=== PATIENT | female | born 1990 | race Caucasian/White ===

== ENCOUNTER 2017-08-02 19:08 | Emergency (ER) | payer MEDICAID, SELFPAY ==
[2017-08-02 19:09] VITALS: BP 118/78; PULSE 98; RESP 17; TEMP 36.8; O2SAT 99; BMI 19.0
[2017-08-02 19:57] LABS: Mucous, Urine 0 SEEN /hpf (<or=2+)
[2017-08-02 20:01] LABS: Color, Urine Yellow (Yellow); Glucose, Dipstick Normal (Normal); Ketone-Dipstick Negative (Negative); Leukocyte Esterase-Dipstick 500 /ul (Negative); Nitrite-Dipstick Negative (Negative); Occult Blood-Urine 150 /ul (Negative); Protein-Dipstick 15 mg/dl (Negative); Urine Bilirubin Dipstick Negative (Negative); Urine Clarity Sl. Cloudy (Clear); Urine Urobilinogen Normal (Normal); Urine pH 6.5 (5.0 - 8.0)
[2017-08-02 20:10] LABS: Red Blood Cells-Urine 5-10 SEEN /hpf (0-5); Squamous Epithelial Cells - UA 0-5 SEEN /hpf (5-10); White Blood Cells 25-50 SEEN /hpf (0-5)
[2017-08-02 20:11] LABS: Amorphous Sediment 1+ URATE; Bacteria RARE /hpf (None Seen)
--- NOTE | 2017-08-02 22:27 | ED.DCSUM_ITS ---
- ER Visit Summary Date of Service: 08/02/17 Chief Complaint: Possible urinary tract infection History of Present Illness: The patient is a 27 F who presents with suprapubic abdominal pain for the past couple weeks. Patient states the pain radiates into her low back. Patient denies any flank pain. Patient admits to some dysuria, frequency, and one episode of hematuria. Patient denies any fevers or chills. Patient admits to some nausea but denies any vomiting. Patient denies any diarrhea or constipation. Patient denies any decrease in appetite. Physical Examination: Vital signs are stable. Patient is afebrile. Patient is in no acute distress. Oral mucosa is pink and moist. Neck is supple. Trachea is midline. Heart was regular rate and rhythm. Lungs are clear and equal bilaterally. There is good respiratory effort noted. Abdomen is soft. There is some mild suprapubic tenderness. There is no rebound or guarding noted. The remaining physical exam is within normal limits. Test Results: Urinalysis showed evidence of urinary tract infection. Emergency Department Course and Treatment: Patient was given prescriptions for Bactrim and Pyridium. Patient was instructed to follow-up with her primary care physician in 7-10 days. Patient understood and was agreeable with the plan. All questions were answered. Disposition: Discharge home Impression: Urinary tract infection This note was generated with [employer] dictation software. It may contain incorrect words, spelling, and punctuation that were not noted in review of the chart prior to signing ED Disposition - Plan for ED Patient: Disposition: Home or Assisted Living Chief Complaint: Complaint Diagnosis: Urinary tract infection Instructions: ED UTI Cystitis Female Prescriptions: Phenazopyridine HCl [Pyridium] 200 mg PO TID PRN PRN #6 tab PRN Reason: Pain Smz/Tmp Ds [Bactrim Ds] 1 tab PO BID #6 tab Referrals: Care Physician,No Primary [Primary Care Provider] -
[2017-08-02 22:46] VITALS: BP 121/71; PULSE 68; RESP 16; O2SAT 100
== END 2017-08-02 22:47 | disposition home or self-care (01) ==
PROVIDERS: Emergency Provider Emergency Medicine
DX: N39.0 Urinary tract infection, site not specified (principal)
CPT/HCPCS: 81001; 99282

== ENCOUNTER 2017-10-06 12:43 | Emergency (ER) | payer MEDICAID, SELFPAY ==
[2017-10-06 12:45] VITALS: BP 117/80; PULSE 101; RESP 14; TEMP 36.6; O2SAT 99; BMI 22.0
--- NOTE | 2017-10-06 12:57 | RAD_ITS ---
STUDY: X-RAY - RIGHT HAND REASON FOR EXAM: Female, 27 years old. Soft tissue swelling and bruising along the distal aspect of the third metacarpal joint. TECHNIQUE: 3 view(s) of the hand. COMPARISON: None. FINDINGS: Normal radiocarpal articulation. Normal distal radioulnar joint. Normal visualized carpal bones. Normal carpal articulations Normal carpometacarpal articulation of the thumb. Normal second through fifth carpometacarpal joints. Normal metacarpi. Normal metacarpophalangeal joint of the thumb. Normal interphalangeal joint of the thumb. Normal proximal and distal phalanges of the thumb. Normal metacarpophalangeal joints of the second through fifth fingers. Normal proximal and distal interphalangeal joints of the second through fifth fingers. Normal phalanges of the second through fifth fingers. Soft tissue swelling. RAD/Hand Min 3 Views IMPRESSION: Soft tissue swelling. Electronically Signed: Hugo Aldana MD at 13:12 EDT Tel [phone], Service support ,
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
[2017-10-06 13:36] VITALS: RESP 12
== END 2017-10-06 13:37 | disposition home or self-care (01) ==
LOC: ED 13:33
PROVIDERS: Emergency Provider Emergency Medicine
DX: S60.221A Contusion of right hand, initial encounter (principal); W22.8XXA Striking against or struck by other objects, initial encounter; Y93.9 Activity, unspecified; Y92.9 Unspecified place or not applicable
CPT/HCPCS: 73130; 99282

== ENCOUNTER 2017-10-31 14:31 | Emergency (ER) | payer MEDICAID, SELFPAY ==
--- NOTE | 2017-10-31 11:27 | EKG12_ITS ---
Test Reason : [facility] [place] Blood Pressure : / mmHG Vent. Rate : 092 BPM Atrial Rate : 092 BPM P-R Int : 124 ms QRS Dur : 078 ms QT Int : 362 ms P-R-T Axes : 062 056 044 degrees QTc Int : 447 ms Normal sinus rhythm Normal ECG Confirmed by RY MATTA, RAMON ([id number]), news video editor ESE BILLS ([id number]) on 11/08/2017 6:17:48 PM Referred By: Choco Nice Confirmed By:RAMON RAZA MD
--- NOTE | 2017-10-31 14:31 | DT_ITS ---
This patient was seen during an EMR downtime October 30, 2017 - November 06, 2017. This patient may have a combination of paper and electronic documentation or all paper documentation. All documentation is viewable within the e-chart portion of [employer] for each patient visit.
[2017-11-02 18:38] LABS: Bacteria 1+ /hpf (None Seen); Color, Urine Yellow (Yellow); Glucose, Dipstick Normal (Normal); Ketone-Dipstick 5 mg/dl (Negative); Leukocyte Esterase-Dipstick 500 /ul (Negative); Mucous, Urine 2+ /hpf (<or=2+); Nitrite-Dipstick Negative (Negative); Occult Blood-Urine 10 /ul (Negative); Protein-Dipstick 30 mg/dl (Negative); Red Blood Cells-Urine 0-5 SEEN /hpf (0-5); Specific Gravity, Urine 1.025 (1.002-1.030); Squamous Epithelial Cells - UA 0-5 SEEN /hpf (5-10); Urine Bilirubin Dipstick Negative (Negative); Urine Clarity Sl Cloudy (Clear); Urine Urobilinogen 1 mg/dl (Normal); White Blood Cells 5-10 SEEN /hpf (0-5)
[2017-11-02 18:39] LABS: Calcium Oxalate Crystals Ur 1+ /hpf (<or=2+)
[2017-11-02 21:20] LABS: AST(SGOT) 17 U/L (15-37); Alanine Aminotransfer ALT/SGPT 18 U/L (13-56); Albumin, Serum 4.2 g/dL (3.2-5.0); Alkaline Phosphatase 45 U/L (45-117); Bilirubin, Direct 0.13 mg/dL (0.00-0.30); Globulin 3.2 g/dL (2.2-4.2); Protein, Total 7.4 g/dL (6.4-8.2)
[2017-11-02 22:00] LABS: Glucose 92 mg/dL (74-106)
[2017-11-02 22:01] LABS: Anion Gap 10 (5-15); BUN 13 mg/dL (7-18); BUN/Creat Ratio 14.3 RATIO (10-20); Calcium,Total 9.2 mg/dL (8.5-10.1); Chloride 107 mmol/L (98-107); Creatinine, Serum 0.91 mg/dL (0.55-1.02); EST Glomerular Filtration Rate 79 mL/min (>60); Est Glom Filt Rate - Afr Amer 96 mL/min (>60); Sodium Level 141 mmol/L (136-145)
[2017-11-02 22:02] LABS: Alcohol, Blood (Medical)-Serum < 3.0 mg/dL; Potassium 2.5 mmol/L (3.5-5.1); Pregnancy, Serum, hCG Quali. NEGATIVE Negative (0-9 Nonpreg)
[2017-11-03 09:29] LABS: Amphetamine Urine VISTA POSITIVE (<1000 ng/mL); Barbiturate Urine VISTA NEGATIVE (< 200 ng/mL); Benzodiazepine Urine VISTA NEGATIVE (< 200 ng/mL); Cocaine Urine VISTA NEGATIVE (< 300 ng/mL); Ecstacy Urine VISTA POSITIVE (< 500 ng/mL); Methadone Urine VISTA NEGATIVE (< 300 ng/mL); PCP Urine VISTA NEGATIVE (< 25 ng/mL); THC Urine VISTA POSITIVE (< 50 ng/mL)
[2017-11-03 12:20] LABS: Hematocrit 40.3 % (37-47); Hemoglobin 13.8 g/dl (12.0-15.0); Mean Corpuscular Hgb 32.1 pg (27.0-32.0); Mean Corpuscular Volume 93.7 fL (81-99); White Blood Count 4.8 K/mm3 (4.4-11.0)
[2017-11-03 12:21] LABS: Mean Corp Hgb Conc 34.2 g/gl (32-36); Mean Platelet Vol. 10.1 fl (6.2-12.0); Platelet Count 227 K/mm3 (150-450); RBC Distribution Width CV 12.8 % (11.6-14.6); RBC Distribution Width SD 43.8 fl (35.1-43.9); Scan Indicated on CBC? Y/N NO
[2017-11-04 07:25] LABS: Potassium 3.6 mmol/L (3.5-5.1)
== END 2017-11-01 08:30 ==
LOC: ED 11-02 07:40
PROVIDERS: Emergency Provider Emergency Medicine
DX: F32.9 Major depressive disorder, single episode, unspecified (principal); R45.851 Suicidal ideations; F20.0 Paranoid schizophrenia; S50.912A Unspecified superficial injury of left forearm, initial encounter; Y33.XXXA Other specified events, undetermined intent, initial encounter; Y93.9 Activity, unspecified; Y92.9 Unspecified place or not applicable
CPT/HCPCS: 36415; 80048; 80076; 80307; 80320; 81001; 84132; 84703; 85027; 93005; 96372; 99285; J7030; A4216; G0480; J3486

== ENCOUNTER 2018-03-04 12:56 | Emergency (ER) | payer MEDICAID, SELFPAY ==
[2018-03-04 12:57] VITALS: BP 116/86; PULSE 92; RESP 14; TEMP 36.8; O2SAT 100; BMI 18.2
--- NOTE | 2018-03-04 13:21 | ED.DCSUM_ITS ---
- ER Visit Summary Date of Service: 03/04/18 Chief Complaint: Dysuria History of Present Illness: The patient is a 27 F past medical history of prior UTIs. Prior breast cancer with lumpectomy. Patient is for last 2 months she has had urinary frequency and discomfort urinating. Denies any vaginal bleeding . Last menstrual period was about 3 weeks ago. Does not believe she is . No fever. No vomiting or diarrhea. Physical Examination: Well-appearing young female. Vital signs are stable. Afebrile. Pulse ox 100% on room air no signs of hypoxia. H EENT exam unremarkable. Red hair. Moist mucous membranes. Neck nontender. No lymphadenopathy. Lungs clear to auscultation bilaterally. Dry cough. Heart regular rhythm no murmur. Abdomen soft. Normal bowel sounds no peritoneal signs. Moving all 4 extremities. Neurovascularly intact. Back exam nontender. No CVA tenderness. Neurologically awake and alert with no focal motor deficits. Test Results: Urinalysis shows 2+ bacteria and 50-100 white cells consistent with a UTI. Emergency Department Course and Treatment: Keflex 500 mg 4 times daily for 10 days. She asked for a prescription of Motrin for pain. Treatment Plan: Referred to a local primary care physician. Keflex 4 times daily for 10 days. Disposition: Discharge Impression: Acute dysuria secondary to UTI (cystitis) This note was generated with [employer] dictation software. It may contain incorrect words, spelling, and punctuation that were not noted in review of the chart prior to signing ED Disposition - Plan for ED Patient: Chief Complaint: Complaint Referrals: Care Physician,No Primary [Primary Care Provider] -
[2018-03-04 13:49] LABS: Red Blood Cells-Urine 0 SEEN /hpf (0-5)
[2018-03-04 13:55] LABS: Color, Urine Yellow (Yellow); Glucose, Dipstick Normal (Normal); Ketone-Dipstick 5 mg/dl (Negative); Leukocyte Esterase-Dipstick 500 /ul (Negative); Nitrite-Dipstick Negative (Negative); Occult Blood-Urine 10 /ul (Negative); Protein-Dipstick 30 mg/dl (Negative); Urine Bilirubin Dipstick Negative (Negative); Urine Clarity Cloudy (Clear); Urine Urobilinogen Normal (Normal)
[2018-03-04 14:03] LABS: Bacteria 2+ /hpf (None Seen); Mucous, Urine 1+ /hpf (<or=2+); Squamous Epithelial Cells - UA 0-5 SEEN /hpf (5-10); White Blood Cells 50-100 SEEN /hpf (0-5)
--- NOTE | 2018-03-04 14:29 | ED.DEP ---
ED Disposition - Plan for ED Patient: Disposition: Home or Assisted Living Chief Complaint: Complaint Instructions: ED UTI Cystitis Female Prescriptions: Cephalexin [Keflex] 500 mg PO Q6 #40 cap Ibuprofen [Motrin] 600 mg PO TID PRN PRN #20 tab PRN Reason: Pain Referrals: Elver Small [[facility]] - Elver Small MD [NON-STAFF] - As Needed Additional Instructions: Plenty of water and cranberry juice. Take the antibiotic Keflex 1 pill 4 times a day till gone. Follow-up with not improving or return if worse.
[2018-03-04] MEDS: Cephalexin 250 MG Capsule 500 MG PO (14:39)
[2018-03-04 14:41] VITALS: PULSE 94; RESP 16; O2SAT 100
== END 2018-03-04 14:42 | disposition home or self-care (01) ==
PROVIDERS: Emergency Provider Emergency Medicine
DX: N39.0 Urinary tract infection, site not specified (principal); R30.0 Dysuria; R05 Cough; Z87.440 Personal history of urinary (tract) infections; Z85.3 Personal history of malignant neoplasm of breast
CPT/HCPCS: 81001; 99283

== ENCOUNTER → 2020-01-09 12:56 | Outpatient (CLI) | payer MEDICAID, SELFPAY ==
--- NOTE | 2020-01-09 13:00 | VDLE_ITS ---
Reason For Study: Hx DVT and IVC filter RIGHT LEFT GSV is normal. GSV is normal. CFV is compressible, spontaneous, phasic, CFV is compressible, spontaneous, phasic, competent and demonstrates normal competent, and demonstrates normal augmentation. augmentation. FV is compressible, spontaneous, phasic, FV is compressible, spontaneous, phasic, competent and demonstrates normal competent and demonstrates normal augmentation. augmentation. POP V is compressible, spontaneous, phasic, POP V is compressible, spontaneous, phasic, competent and demonstrates normal competent and demonstrates normal augmentation. augmentation. T/P Trunk is compressible. T/P Trunk is compressible. PTV is compressible. PTV is compressible. RT PerV is compressible. LT PerV is compressible. Procedure Exam performed in department. A preliminary report was called and/or faxed to [facility]. Interpretation Summary Bilateral no DVT or SVT. Ordering Physician: JERILYN SHELTON Performed By: Rupinder Mendoza RVT
== END ==
DX: Z86.718 Personal history of other venous thrombosis and embolism (principal); Z95.828 Presence of other vascular implants and grafts
CPT/HCPCS: 93970

== ENCOUNTER 2020-04-21 10:04 | Emergency (ER) | payer MEDICAID, SELFPAY ==
[2020-04-21 10:06] VITALS: BP 139/99; PULSE 105; RESP 17; TEMP 36.2; O2SAT 100; BMI 24.0
--- NOTE | 2020-04-21 11:09 | ED.VISSUMM ---
- ER Visit Summary Date of Service: 04/21/20 Chief Complaint: Dysuria, hematuria, and fever History of Present Illness: The patient is a 29 F who presents with dysuria, hematuria, and fever for the past 2 weeks. Patient states she feels like she has a urinary tract infection that has now spread to her kidneys. Patient states she has some burning in her lower abdomen. Patient states this is worse with urination. Patient admits to a fever of 102 at home. Patient admits to nausea but denies any vomiting. Patient does admit to some pain in her low back and neck. Physical Examination: Vital signs are stable. Patient is afebrile here. Patient is in no acute distress. Oral mucosa is pink and moist. Neck is supple. Trachea is midline. There is no JVD. Heart was regular rate and rhythm. Lungs are clear and equal bilaterally. Abdomen is soft. Bowel sounds are normal. There is some mild suprapubic tenderness. There is no rebound or guarding noted. Cranial nerves II through XII are intact. There are no focal motor or sensory deficits. Extremities are intact. There is no calf tenderness or edema. Test Results: Urinalysis shows leukocyte esterase of 500 with 50-100 white blood cells and 25-50 red blood cells. There is 1+ bacteria. Emergency Department Course and Treatment: Patient was given a dose of Bactrim here. Patient was given a prescription for Bactrim. Patient was instructed to follow-up with her primary care physician in 5 to 7 days. Patient understood and was agreeable with the plan. All questions were answered. Disposition: Discharge home Impression: 1. Urinary tract infection This note was generated with [employer] dictation software. It may contain incorrect words, spelling, and punctuation that were not noted in review of the chart prior to signing ED Disposition - Plan for ED Patient: Disposition: Home or Assisted Living Diagnosis: Urinary tract infection Instructions: ED CYSTITIS Female Adult Prescriptions: Smz/Tmp Ds [Bactrim Ds] 1 tab PO BID #6 tab Prescription Printed Referrals: Gabby Dominguez DO [Primary Care Provider] - 5-7 Days
[2020-04-21 11:36] LABS: Mucous, Urine 0 SEEN /hpf (<or=2+)
[2020-04-21 11:39] LABS: Color, Urine Yellow (Yellow); Glucose, Dipstick Normal (Normal); Ketone-Dipstick Negative (Negative); Leukocyte Esterase-Dipstick 500 /ul (Negative); Nitrite-Dipstick Negative (Negative); Occult Blood-Urine 250 /ul (Negative); Protein-Dipstick 30 mg/dl (Negative); Specific Gravity, Urine 1.015 (1.002-1.030); Urine Bilirubin Dipstick Negative (Negative); Urine Clarity Sl. Cloudy (Clear); Urine Urobilinogen Normal (Normal)
[2020-04-21 11:47] LABS: Bacteria 1+ /hpf (None Seen); Red Blood Cells-Urine 25-50 SEEN /hpf (0-5); Squamous Epithelial Cells - UA 0-5 SEEN /hpf (5-10); White Blood Cells 50-100 SEEN /hpf (0-5)
[2020-04-21 11:48] LABS: Internal QC Validated? YES +Cl - CLEAR BKGD; Pregnancy, Urine Negative Negative
[2020-04-21] MEDS: Smz/Tmp Ds Tablet 1 TABLET PO (13:18)
[2020-04-21 13:20] VITALS: BP 134/96; PULSE 100; RESP 17; O2SAT 97
== END 2020-04-21 13:21 | disposition home or self-care (01) ==
PROVIDERS: Emergency Provider Emergency Medicine; PCP Family Medicine
DX: N39.0 Urinary tract infection, site not specified (principal)
CPT/HCPCS: 81001; 81025; 99282

== ENCOUNTER 2023-12-16 12:45 | Emergency (ER) | payer MEDICAID, SELFPAY ==
[2023-12-16 12:45] VITALS: BP 137/97; PULSE 85; RESP 14; TEMP 36.6; O2SAT 98; BMI 20.4
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
[2023-12-16] MEDS: Naproxen 500 MG Tablet PO (12:55)
--- NOTE | 2023-12-16 12:59 | RAD_ITS ---
STUDY: X-RAY - RIGHT HAND REASON FOR EXAM: Female, 33 years old. Pain and swelling TECHNIQUE: 3 view(s) of the hand. COMPARISON: None. FINDINGS: Normal radiocarpal articulation. Normal distal radioulnar joint. Normal visualized carpal bones. Normal carpal articulations Normal carpometacarpal articulation of the thumb. Normal second through fifth carpometacarpal joints. Normal metacarpi. Normal metacarpophalangeal joint of the thumb. Normal interphalangeal joint of the thumb. Normal proximal and distal phalanges of the thumb. Normal metacarpophalangeal joints of the second through fifth fingers. Normal proximal and distal interphalangeal joints of the second through fifth fingers. Normal phalanges of the second through fifth fingers. Dorsal soft tissue swelling RAD/Hand Min 3 Views IMPRESSION: No fracture or suspicious osseous lesion Dorsal soft tissue swelling Electronically Signed: Herb Warner MD at 13:12 EDT ,
== END 2023-12-16 13:47 | disposition home or self-care (01) ==
LOC: ED 13:47
PROVIDERS: Emergency Provider Emergency Medicine; Visit Provider Emergency Medicine
DX: S67.21XA Crushing injury of right hand, initial encounter (principal); Z87.891 Personal history of nicotine dependence; W23.2XXA Caught, crushed, jammed or pinched between a moving and stationary object, initial encounter; Y92.810 Car as the place of occurrence of the external cause
CPT/HCPCS: 73130; 99282

== ENCOUNTER 2024-04-15 14:33 | Emergency (ER) | payer MEDICAID, SELFPAY ==
[2024-04-15 14:36] VITALS: BP 134/78; PULSE 109; RESP 22; TEMP 36.9; O2SAT 100; BMI 22.3
--- NOTE | 2024-04-15 15:16 | CT_ITS ---
STUDY: CT ABDOMEN AND PELVIS WITH CONTRAST REASON FOR EXAM: Female, 33 years old. LLQand suprpubic pain RADIATION DOSAGE (If Supplied By Facility): CTDIvol = ( 8.68 ) mGy, DLP = ( 352.82 ) mGycm TECHNIQUE: Transaxial images were obtained from the dome of the diaphragm to the symphysis pubis without oral contrast. IV 100mL Isovue-300 was administered. Sagittal and coronal images were reconstructed. Individualized dose optimization techniques were used for this CT. COMPARISON: None. FINDINGS: The visualized lung bases are unremarkable. The visualized portions of the heart are within normal limits. Normal liver. Normal gallbladder and extrahepatic biliary system. Normal spleen. Normal pancreas. Normal bilateral adrenal glands. Normal right kidney. Normal left kidney. Normal visualized stomach. Normal small intestine. Normal colon. The appendix is visualized and appears normal. Normal abdominal aorta. There is a filter in the inferior vena cava. Normal retroperitoneum. Normal urinary bladder. Mild pelvic free fluid. Possible collapsed left ovarian 1.3 cm cystic nodule. Correlate with pelvic ultrasound if needed. Normal abdominal wall. Normal osseous structures. CT/Abdomen/Pelvis W IV Cont ONLY IMPRESSION: Mild pelvic free fluid. Possible collapsed left ovarian 1.3 cm cystic nodule. Correlate with pelvic ultrasound if needed. Electronically Signed: Rad Shine DO at 16:55 EST Reading Location ID and State: [facility] / [place] Tel [phone], Service support ,
[2024-04-15 15:25] LABS: Absolute Lymphocyte Count 1.59 X10^3/uL (0.83-4.51); Absolute Neutrophil Count 3.7 X10^3/uL (2.0-7.7); Basophil# 0.07 X10^3/uL; Basophil% 1.2 % (0-1); Eosinophil# 0.12 X10^3/uL; Hematocrit 36.5 % (37-47); Lymphocyte # 1.59 X10^3/ul (0.83-4.51); Lymphocyte % 26.5 % (19-41); Mean Corp Hgb Conc 32.9 g/dL (32-36); Mean Corpuscular Hgb 30.8 pg (27.0-32.0); Mean Corpuscular Volume 93.6 fL (81-99); Mean Platelet Vol. 10.9 fl (6.2-12.0); Monocyte# 0.49 X10^3/uL; Monocyte% 8.2 % (0-10); NRBC Flagged by Analyzer 0 % (0-5); Neutrophil # 3.72 X10^3/uL (2.7-7.7); Neutrophil % 61.8 % (47-70); Platelet Count 240 K/mm3 (150-450); RBC Distribution Width CV 13.3 % (11.6-14.6); RBC Distribution Width SD 45.3 fl (35.1-43.9)
--- NOTE | 2024-04-15 15:25 | EDS_ITS ---
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 Patient states this been going on for a few months now and notes that she feels that it is progressively worsening which prompted her to come here for further evaluation management. Patient denies any previous abdominal surgeries she states that she could be but believes that she is not. Patient states that her pain is a 2 out of 10 currently. Patient denies any fevers or chills PFSH PFSH Medical History Pulmonary embolism Pulmonary embolism Paranoid schizophrenia Home Medications ?Medication ?Instructions ?Recorded ?Last Taken ?Type dicyclomine 10 mg capsule 10 mg PO TID 5 days #15 caps 04/15/24 Unknown Rx ondansetron 4 mg disintegrating 4 mg PO Q6H PRN nausea and 04/15/24 Unknown Rx tablet vomiting #20 tabs Allergy/AdvReac Type Severity Reaction Status Date / Time quetiapine (From Seroquel) Allergy Chest Verified 04/15/24 14:35 tightness Social History household members: family current occupational status: employed Smoking Status: Former smoker ROS ROS ED ROS Narrative Constitutional: Denies any fevers, chills, headaches, lightness, dizziness Cardiovascular: Denies chest pain or palpitations Respiratory: Denies coughing wheezing shortness of breath Abdomen: Complains of abdominal pain and nausea as noted above denies vomiting or diarrhea : Denies any urinary symptoms Neurological: Denies any numbness, weakness, tingling Musculoskeletal: Denies back pain Skin: Denies rashes or lesions EXAM Physical Exam Narrative Exam Narrative: General: Patient lying in bed rest comfortably did not appear to be in acute distress Head: Atraumatic, normocephalic Eyes: PERRL bilateral, EOMI bilateral, no conjunctival injection noted Neck: Soft, supple, trach midline Cardiovascular: Regular rate and rhythm no murmurs gallops rubs noted Respiratory: Clear to auscultation bilaterally no rales rhonchi or wheeze noted Abdomen: Soft, nondistended, mild tenderness palpation suprapubic region and the left lower quadrant no rebound or guarding on exam, bowel sounds present x 4 Extremities: +5/5 strength noted in the bilateral upper and lower extremities, no pedal edema on exam Neurological: Patient follow commands knew that she was at [facility] years 2023 Skin: Warm, dry, intact Const Vital Signs: 04/15/24 14:36 Temperature 98.4 F Temperature Source Temporal Pulse Rate 109 H Respiratory Rate 22 H Blood Pressure 134/78 H Blood Pressure Mean 96 Pulse Ox 100 Oxygen Delivery Method Room Air MDM MDM MDM Narrative Medical decision making narrative: Patient is a 33-year-old female who presents to the emergency department with a chief complaint of abdominal pain and nausea. Patient will have a workup performed here on the differential diagnose includes but limited to UTI, , diverticulitis, appendicitis. Once workup is obtained reviewed she will be reevaluated. Patient CBC reviewed and was largely unremarkable no evidence leukocytosis white blood count normal at 6, hemoglobin stable 12, plate count normal at 240. Patient sodium normal at 141, potassium was mildly low at 3.2 she will be given 40 mill equivalents of potassium supplementation here, creatinine normal at 0.83. Patient's AST and ALT were 18 and 24 respectively. Patient lipase normal at 31. Patient's urinalysis did not reveal any evidence of infection and test was negative. Patient CT abdomen pelvis with IV contrast was reviewed and showed mild pelvic free fluid possible collapsed left ovarian 1.3 cm cystic nodule correlate with pelvic ultrasound if needed. Do not believe that this is necessary at this point time. On reevaluation the patient she is feeling better she would like to go home at this point time. She was advised to follow-up with her MOLECULAR BIOLOGY SCIENTIST in 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 She will be given prescription for Bentyl and Zofran. She was advised to return with worsening symptoms or other concerns. All question concerns answered she was discharged home in stable condition. Lab Data Labs: Laboratory Results - last 24 hr 04/15/24 04/15/24 14:52 15:26 WBC 6.0 RBC 3.90 L Hgb 12.0 Hct 36.5 L MCV 93.6 MCH 30.8 MCHC 32.9 RDW Std Deviation 45.3 H RDW Coeff of Jarrod 13.3 Plt Count 240 MPV 10.9 Immature Gran % (Auto) 0.300 Neut % (Auto) 61.8 Lymph % (Auto) 26.5 [place] % (Auto) 8.2 Eos % (Auto) 2.0 Baso % (Auto) 1.2 H Absolute Neuts (auto) 3.7 Absolute Lymphs (auto) 1.59 Nucleated RBC % 0 Sodium 141 Potassium 3.2 L Chloride 108 H Carbon Dioxide 27.0 Anion Gap 6 BUN 14 Creatinine 0.83 Estim Creat Clear Calc 80.49 Est GFR (MDRD) Af Amer 102 Est GFR (MDRD) Non-Af 84 BUN/Creatinine Ratio 16.8 Glucose 105 Calcium 8.5 Total Bilirubin 0.20 AST 18 ALT 24 Alkaline Phosphatase 49 Total Protein 6.9 Albumin 3.6 Globulin 3.3 Albumin/Globulin Ratio 1.1 Lipase 31 Urine Color Yellow Urine Clarity Sl. Cloudy Urine pH 6.0 Ur Specific Barnhart 1.025 Urine Protein 15 H Urine Glucose (UA) Normal Urine Ketones Negative Urine Occult Blood Negative Urine Nitrite Negative Urine Bilirubin Negative Urine Urobilinogen Normal Ur Leukocyte Esterase 25 H Urine RBC 0 SEEN Urine WBC 0 SEEN Ur Squamous Epith Cells 0-5 SEEN Urine Bacteria RARE Urine Mucus 3+ Urine Test Negative Radiography Diagnostic Testing: Clinical Impression(s) from Imaging Studies Abdomen/Pelvis CT 04/15/24 15:16 IMPRESSION: Mild pelvic free fluid. Possible collapsed left ovarian 1.3 cm cystic nodule. Correlate with pelvic ultrasound if needed. Electronically Signed: Rad Shine DO at 16:55 EST Reading Location ID and State: [address] [place] [address] Tel [phone], Service support , Discharge Plan Triage Chief Complaint: Abd Pain ED Provider: Daniel Ch Dx/Rx/DC Orders Clinical Impression: Abdominal pain Prescriptions: New dicyclomine 10 mg capsule 10 mg PO TID 5 Days Qty: 15 0RF ondansetron 4 mg tablet,disintegrating 4 mg PO Q6H PRN (Reason: nausea and vomiting) Qty: 20 0RF Primary Care Provider: Care Physician,No Primary Referrals: Care Physician,No Primary [Primary Care Provider[facility] - Activity Restrictions/Additional Instructions: Follow with your primary care physician that you referred to. Follow-up with your MOLECULAR BIOLOGY SCIENTIST in the outpatient setting. Return with worsening symptoms or other concerns. Take prescriptions as prescribed. Print Language: Latvian Disposition Disposition: Home, Self Care
[2024-04-15 15:36] LABS: Red Blood Cells-Urine 0 SEEN /hpf (0-5); White Blood Cells 0 SEEN /hpf (0-5)
[2024-04-15 15:40] LABS: ALB/GLOB Ratio 1.1 RATIO (0.9-2.4); AST(SGOT) 18 U/L (15-37); Alanine Aminotransfer ALT/SGPT 24 U/L (13-56); Albumin, Serum 3.6 g/dL (3.2-5.0); Alkaline Phosphatase 49 U/L (45-117); Anion Gap 6 (5-15); BUN 14 mg/dL (7-18); BUN/Creat Ratio 16.8 RATIO (10-20); Calcium,Total 8.5 mg/dL (8.5-10.1); Chloride 108 mmol/L (98-107); Creatinine, Serum 0.83 mg/dL (0.55-1.02); EST Glomerular Filtration Rate 84 mL/min (>60); Est Glom Filt Rate - Afr Amer 102 mL/min (>60); Estimated Creatinine Clearance 80.49 ml/min; Globulin 3.3 g/dL (2.2-4.2); Glucose 105 mg/dL (74-106); Lipase 31 U/L (13-75); Potassium 3.2 mmol/L (3.5-5.1); Protein, Total 6.9 g/dL (6.4-8.2); Sodium Level 141 mmol/L (136-145)
[2024-04-15 15:47] LABS: Color, Urine Yellow (Yellow); Glucose, Dipstick Normal (Normal); Ketone-Dipstick Negative (Negative); Leukocyte Esterase-Dipstick 25 /ul (Negative); Nitrite-Dipstick Negative (Negative); Occult Blood-Urine Negative /ul (Negative); Protein-Dipstick 15 mg/dl (Negative); Specific Gravity, Urine 1.025 (1.002-1.030); Urine Bilirubin Dipstick Negative (Negative); Urine Clarity Sl. Cloudy (Clear); Urine Urobilinogen Normal (Normal)
[2024-04-15 16:10] LABS: Internal QC Validated? YES +Cl - CLEAR BKGD; Pregnancy, Urine Negative Negative
[2024-04-15 16:11] LABS: Record Kit Lot#,Urine Preg 869294
[2024-04-15 16:14] LABS: Squamous Epithelial Cells - UA 0-5 SEEN /hpf (5-10)
[2024-04-15 16:15] LABS: Bacteria RARE /hpf (None Seen); Mucous, Urine 3+ /hpf (<or=2+)
[2024-04-15 16:34] VITALS: BP 124/78; PULSE 68; RESP 16; O2SAT 98
[2024-04-15 17:28] VITALS: BP 120/66; PULSE 89; RESP 16; TEMP 37.1; O2SAT 98
== END 2024-04-15 17:29 | disposition home or self-care (01) ==
PROVIDERS: Emergency Provider Emergency Medicine; Visit Provider Emergency Medicine
DX: R10.9 Unspecified abdominal pain (principal); Z87.891 Personal history of nicotine dependence; Z95.828 Presence of other vascular implants and grafts
CPT/HCPCS: 74177; 80053; 81001; 81025; 83690; 85025; 99283; Q9967; A4216

== ENCOUNTER 2024-05-20 08:48 | Emergency (ER) | payer MEDICAID, SELFPAY ==
[2024-05-20 08:50] VITALS: BP 135/102; PULSE 98; RESP 20; TEMP 37.2; O2SAT 100; BMI 22.7
--- NOTE | 2024-05-20 09:16 | EX.ED.VIS.UR ---
HPI HPI - URI History of Present Illness Chief Complaint: Sore Throat Informant: patient Onset/Context/Timing Onset: Days Context: Gradual Onset Current Severity: Mild Maximum Severity: Mild Associated Symptoms Associated Symptoms: Positive for Nasal Congestion, Myalgias, Nausea, Vomiting and Nonproductive cough; Negative for Diarrhea Narrative Narrative: 33-year-old female history of prior pulmonary emboli of [place] filter and paranoid schizophrenia. 2 of her children at home have similar symptoms. She has had several day history of cough, mild sore throat, nasal congestion and intermittent nausea and vomiting. No diarrhea. She was at work today was feeling worse due to the chemical she was exposed to at work per her and left and came in to be evaluated. Prior similar symptoms: Yes Recent Illness/Hospitalization: No ROS ROS ED ROS Narrative Cough, myalgias, nausea vomiting, mild sore throat. Constitutional Constitutional ED: Denies chills or fever(s) Eyes Eyes: Denies blurry vision ENT ENT ED: Reports ear pain, rhinorrhea and sore throat Cardiovascular Cardiovascular: Denies chest pain or palpitations Respiratory/Chest Respiratory/Chest: Reports cough; Denies dyspnea Gastrointestinal Gastrointestinal: Reports nausea and vomiting; Denies abdominal pain Genitourinary Genitourinary ED: Denies dysuria or hematuria Musculoskeletal Musculoskeletal: Denies arthralgias Integumentary Denies abscess Neurologic Neurologic: Denies headache(s) Psychiatric Psychiatric: Denies anxiety Endocrine Endocrinology: Denies cold intolerance Hematologic/Lymphatic Hematologic/Lymphatic: Denies easy bleeding Allergic/Immunologic Allergic/Immunologic ED: Denies mouth swelling, tongue swelling or urticaria [facility] Medical History Pulmonary embolism Pulmonary embolism Paranoid schizophrenia Home Medications ?Medication ?Instructions ?Recorded ?Last Taken ?Type dicyclomine 10 mg capsule 10 mg PO TID 5 days #15 caps 04/15/24 Unknown Rx ondansetron 4 mg disintegrating 4 mg PO Q6H PRN nausea and 04/15/24 Unknown Rx tablet vomiting #20 tabs Allergy/AdvReac Type Severity Reaction Status Date / Time quetiapine (From Seroquel) Allergy Chest Verified 05/20/24 08:49 tightness Social History household members: family current occupational status: employed Smoking Status: Current every day smoker tobacco type: e-cigarettes EXAM Physical Exam Narrative Exam Narrative: Well-appearing 33-year-old female. Vital signs stable afebrile. She does not look septic toxic or any distress. Pulse ox 100% on room air. No signs of hypoxia. H EENT exam pupils round react light. Moist weeks membranes. Posterior pharynx normal. No erythema or exudate. No trouble breathing or swallowing. No peritonsillar abscess. TMs are normal. Neck nontender no lymphadenopathy. Trachea midline. Lungs clear to auscultation bilaterally. Dry cough. No rales, rhonchi or wheezing. Heart regular rhythm rate about 95 no murmur. Chest wall ribs nontender. Abdomen soft nontender. Moving all 4 extremities. Nontender no edema. She is awake and alert. No focal motor deficits. Exam consistent with viral syndrome. Const Vital Signs: 05/20/24 08:50 Temperature 99 F Temperature Source Temporal Pulse Rate 98 Respiratory Rate 20 H Blood Pressure 135/102 H Blood Pressure Mean 113 Pulse Ox 100 Oxygen Delivery Method Room Air Positive well nourished and well developed; Negative for obese, cachectic or contractures General Appearance ED: well developed and NAD; Negative for cachectic, contractures, cyanotic, diaphoretic or pallor Nutritional Appearance: Negative for cachectic or obese HEENT Reports moist mucous membranes normocephalic and atraumatic Face and Sinus: Negative for sinus tenderness Teeth and Gingiva: Negative for caries Throat: posterior oropharynx normal Eyes PERRL and EOMs intact bilaterally General Eye ED: Negative for pale conjunctiva or scleral icterus Neck no lymphadenopathy, supple, no meningeal signs and no JVD General: Negative for anterior neck swelling or lymphadenopathy Resp normal respiratory effort and clear to auscultation bilaterally Effort and Inspection: Negative for retractions Auscultation: Negative for rales, rhonchi, wheezes or diminished lung sounds Cardio S1 normal heart sound, S2 normal heart sound and no murmurs Rate: regular rate Rhythm: regular rhythm GI non-tender, non-distended and no masses Palpation: soft; Negative for tender or guarding Back/Spine no CVA tenderness and normal ROM General Back: Negative for CVA tenderness Cervical Spine: Negative for cervical spine tenderness Thoracic Spine / Upper Back: Negative for thoracic spinal tenderness Lumbar Spine / Lower Back: Negative for lumbar spinal tenderness Sacrum: Negative for tenderness Extremity normal to inspection and full ROM General Extremety ED: Negative for cyanosis or tenderness General Extremity: Negative for cyanosis Neuro oriented x3 and CN's II-XII intact bilaterally Sensorium / Orientation: alert, oriented to person, oriented to place and oriented to time Motor Exam: strength 5/5 throughout Psych mental status grossly normal Attitude: No agitated Mood & Affect: Negative for depressed, anxious or tearful Skin General Skin Exam: Negative for jaundice or pallor Lesions: no lesions Rashes: no rashes Trauma: Negative for abrasion or laceration MDM MDM MDM Narrative Medical decision making narrative: 33-year-old female with viral URI. She has got no lymphadenopathy. No exudate or erythema to posterior pharynx. 2 of her children have similar symptoms that were viral. She and I discussed there is really no reason to do viral testing. Is likely change her treatment course. She does not need a rapid strep the appearance of her throat. She is comfortable being discharged home. Off work for the next 2 days. Fluids and rest. Tylenol and Motrin. Discharge Plan Triage Chief Complaint: Sore Throat ED Provider: Fran Nice Dx/Rx/DC Orders Clinical Impression: Viral URI Instructions: ED URI, Viral, No Abx (Adult) Prescriptions: No Action dicyclomine 10 mg capsule 10 mg PO TID 5 Days Qty: 15 0RF ondansetron 4 mg tablet,disintegrating 4 mg PO Q6H PRN (Reason: nausea and vomiting) Qty: 20 0RF Primary Care Provider: Care Physician,No Primary Referrals: Elver Small MD [Non-Staff] - As Needed Care Physician,No Primary [Primary Care Provider] - Activity Restrictions/Additional Instructions: Plenty of fluids and rest. Motrin and Tylenol for body aches and fever. Follow-up with your doctor if not improving or return if worse. This appears to be a viral illness and should progressively get better. Off work next 2 days. Print Language: Cymraes Disposition Disposition: Home, Self Care
== END 2024-05-20 09:31 | disposition home or self-care (01) ==
LOC: ED 09:27
PROVIDERS: Emergency Provider Emergency Medicine; Visit Provider Emergency Medicine
DX: J06.9 Acute upper respiratory infection, unspecified (principal)
CPT/HCPCS: 99282

== ENCOUNTER 2024-09-24 06:32 | Emergency (ER) | payer MEDICAID, SELFPAY ==
[2024-09-24 06:32] VITALS: BP 144/98; PULSE 68; RESP 18; TEMP 36.4; O2SAT 100; BMI 23.0
[2024-09-24] MEDS: Fluorescein 1 MG STRIP 1 STRIP RIGHT EYE (07:08)
[2024-09-24] MEDS: Tetracaine 0.5% Ophthalmic Bottle 1 DRP RIGHT EYE (07:08)
--- NOTE | 2024-09-24 07:29 | EDS_ITS ---
HPI History of Present Illness Chief Complaint: Eye Problem Informant: patient Narrative Narrative: Patient is a 34-year-old female with past medical history of schizophrenia. She states around 2 in the morning she poked herself in the right eye with her fingernail. She states that since that time she has had increased tearing light sensitivity and pain. She reports she wears glasses but denies any contact lens use. She states she is concerned she has a scratch to her eye and secondary to this comes in for evaluation. [facility] Medical History Pulmonary embolism Pulmonary embolism Paranoid schizophrenia Home Medications ?Medication ?Instructions ?Recorded ?Last Taken ?Type ciprofloxacin HCl 0.3 % eye drops 2 drp EACH EYE 4X/DA Y 7 days #10 mL 09/24/24 Unknown Rx lurasidone 20 mg tablet 20 mg PO QPM 09/24/24 Unknow n History Allergy/AdvReac Type Severity Reaction Status Date / Time quetiapine (From Seroquel) Allergy Chest Verified 09/24/24 06:35 tightness Social History household members: family current occupational status: employed Smoking Status: Current every day smoker tobacco type: e-cigarettes ROS ROS ED Constitutional Constitutional ED: Denies chills or fever(s) Eyes Eyes: Reports other Details: Positive photophobia ; Denies diplopia ENT ENT ED: Denies sore throat Cardiovascular Cardiovascular: Denies chest pain Respiratory/Chest Respiratory/Chest: Denies cough or dyspnea Gastrointestinal Gastrointestinal: Denies abdominal pain, diarrhea, nausea or vomiting Musculoskeletal Musculoskeletal: Denies myalgias Integumentary Denies rash Neurologic Neurologic: Denies headache(s) Hematologic/Lymphatic Hematologic/Lymphatic: Denies easy bleeding or easy bruising EXAM Physical Exam Const Vital Signs: 09/24/24 06:32 Temperature 97.5 F L Temperature Source Oral Pulse Rate 68 Respiratory Rate 18 Blood Pressure 144/98 H Blood Pressure Mean 113 Pulse Ox 100 Oxygen Delivery Method Room Air Positive well nourished and well developed General Appearance ED: well developed HEENT HEENT Narrative: Normocephalic atraumatic Eyes PERRL and EOMs intact bilaterally Eyes Narrative: Pupils are equal reactive to light and accommodation and extraocular muscles are in place There is mild scleral injection noted mainly along the medial aspect of the right eye with slight increased tearing noted Upper lid was everted there is no foreign object Patient had complete relief of pain with tetracaine Slit lamp examination shows a small corneal abrasion along the 5 to 6 o'clock position over top the sclera without foreign body Negative Donna sign Neck supple Resp normal respiratory effort and clear to auscultation bilaterally Cardio regular rate and regular rhythm Extremity normal to inspection Neuro oriented x3, CN's II-XII intact bilaterally, moves all extremities and no sensory deficits noted Sensorium / Orientation: alert Motor Exam: strength 5/5 throughout Psych mental status grossly normal Skin no rashes or lesions noted MDM MDM MDM Narrative Medical decision making narrative: Patient arrived to the ER with stable vitals and reported accidental trauma to the right eye. General diagnosis is for corneal abrasion versus globe rupture versus foreign object. By exam there is no signs of globe rupture and there is no foreign body present. There is a small corneal abrasion consistent with her history and symptoms. At this time without globe rupture there is no need for emergent ophthalmology consultation and she also does not have a hyphema. She does not wear contact lenses but there is concern for secondary infection so she will be placed on ciprofloxacin eyedrops secondary to this. She is otherwise safe for discharge and can follow-up with ophthalmology on an outpatient basis History & Record Review Discussion w/independent historian: Patient Discharge Plan Triage Chief Complaint: Eye Problem ED Provider: Jerod Davis Dx/Rx/DC Orders Clinical Impression: Corneal abrasion, right, Schizophrenia Instructions: ED Corneal Abrasion Prescriptions: New ciprofloxacin HCl 0.3 % drops 2 drp EACH EYE 4X/DAY 7 Days Qty: 10 0RF No Action lurasidone 20 mg tablet 20 mg PO QPM Stand Alone Forms: ED Work / School Excuse Primary Care Provider: Care Physician,No Primary Referrals: Kayode Lafleur MD [Med Staff - Active Staff] - Care Physician,No Primary [Primary Care Provider] - Activity Restrictions/Additional Instructions: Your history and exam show changes consistent with a small corneal abrasion to your right eye. This will cause increased tearing eye pain and light sensitivity. It will typically heal within 3 to 5 days. Use the antibiotic drops as directed to prevent any infection and follow-up with ophthalmology for repeat evaluation. Return to the ER should you have any further concerns Print Language: Guatemalan Disposition Disposition: Home, Self Care Discharge Date/Time: 09/24/24 07:42
== END 2024-09-24 07:42 | disposition home or self-care (01) ==
PROVIDERS: Emergency Provider Emergency Medicine; Visit Provider Emergency Medicine
DX: S05.01XA Injury of conjunctiva and corneal abrasion without foreign body, right eye, initial encounter (principal); F20.9 Schizophrenia, unspecified; F17.290 Nicotine dependence, other tobacco product, uncomplicated; X58.XXXA Exposure to other specified factors, initial encounter
CPT/HCPCS: 99282

== ENCOUNTER 2024-12-23 22:27 | Emergency (ER) | payer SELFPAY ==
[2024-12-23 22:29] VITALS: BP 147/88; PULSE 89; RESP 18; TEMP 36.4; O2SAT 100; BMI 22.1
--- NOTE | 2024-12-23 23:01 | ED.VIS.FEGU ---
HPI HPI - Female History of Present Illness Chief Complaint: Female C/O Informant: patient Narrative Narrative: Healthy 34-year-old female had unprotected intercourse with a new partner 2 days ago, and today she has an uncomfortable yellow vaginal discharge. She has vaginal discomfort and some itching but no abdominal pain, fevers, chills, or other systemic symptoms. She has a history of chlamydia in the past, she states this seems very similar. PFSH PFS Medical History Pulmonary embolism Pulmonary embolism Paranoid schizophrenia Home Medications ?Medication ?Instructions ?Recorded ?Last Taken ?Type lurasidone 20 mg tablet 20 mg PO QPM 09/24/24 Unknown History doxycycline monohydrate 100 mg 100 mg PO BID #14 CAPSULES 12/23/24 Unknown Rx capsule Allergy/AdvReac Type Severity Reaction Status Date / Time quetiapine (From Seroquel) Allergy Chest Verified 12/23/24 22:29 tightness Social History household members: family current occupational status: employed Smoking Status: Current every day smoker tobacco type: e-cigarettes ROS ROS ED Constitutional Constitutional ED: Denies chills or fever(s) Eyes Eyes: Denies change in vision or diplopia ENT ENT ED: Denies rhinorrhea or sore throat Cardiovascular Cardiovascular: Denies chest pain or palpitations Respiratory/Chest Respiratory/Chest: Denies cough or dyspnea Gastrointestinal Gastrointestinal: Denies abdominal pain, diarrhea, nausea or vomiting Genitourinary Genitourinary ED: Reports vaginal discharge; Denies dysuria or hematuria Musculoskeletal Musculoskeletal: Denies back pain or neck pain Integumentary Denies abscess or rash Neurologic Neurologic: Denies headache(s), paresthesias or weakness Psychiatric Psychiatric: Denies anxiety or suicidal thoughts EXAM Physical Exam Const Vital Signs: 12/23/24 22:29 12/24/24 00:00 Temperature 97.5 F L Temperature Source Temporal Pulse Rate 89 86 Respiratory Rate 18 Blood Pressure 147/88 H Blood Pressure Mean 107 Pulse Ox 100 Oxygen Delivery Method Room Air Positive well nourished and well developed General Appearance ED: well developed and NAD HEENT Reports moist mucous membranes normocephalic and atraumatic Eyes PERRL and EOMs intact bilaterally Neck full ROM and supple Resp normal respiratory effort GI non-tender and non-distended Auscultation: normoactive bowel sounds Palpation: soft Speculum Exam - Vagina: vaginal discharge Extremity normal to inspection General Extremety ED: Negative for edema General Extremity: Negative for edema Neuro oriented x3, CN's II-XII intact bilaterally and no sensory deficits noted Sensorium / Orientation: awake and alert Motor Exam: strength 5/5 throughout Skin no rashes or lesions noted and no wounds MDM MDM MDM Narrative Medical decision making narrative: Patient has a very benign exam, not concerned about a tubo-ovarian abscess specially since she has only had symptoms for a day or less. Appropriate to empirically treat given the high risk situation for chlamydia and/or gonorrhea. Sent a urine specimen to test for both and empirically treated under current recommendations including IM Rocephin which she was amenable to covering and doxycycline which is going to be prescribed to her for a week according to current recommendations. test is negative she is comfortable with following up and/are returning if worse. Lab Data Attestation: I reviewed the patient's lab results. Labs: Laboratory Results - last 24 hr 12/23/24 23:55 Urine Test Negative Discharge Plan Triage Chief Complaint: Female C/O ED Provider: Kyle Fan Dx/Rx/DC Orders Clinical Impression: Vaginitis Instructions: ED Chlamydia, Treated (Female) Prescriptions: New doxycycline monohydrate 100 mg capsule 100 mg PO BID Qty: 14 0RF No Action lurasidone 20 mg tablet 20 mg PO QPM Primary Care Provider: Care Physician,No Primary Referrals: Mary Collins MD [Med Staff - Active Staff] - 3-5 Days if not improving Print Language: [place] Disposition Disposition: Home, Self Care Discharge Date/Time: 12/24/24 00:08
--- OUTSIDE RECORDS SUMMARY | 2024-12-23 23:37 | XMS RPT_ITS | CCD ---
Author Organization [facility] Care Team Providers Care Healthcare Applications Analyst Name Role Phone GISELA HENAO Unavailable Unavailable TMAI HALL Unavailable Unavailable PHYSICIAN, UNASSIGNED Unavailable Unavailabl e [email or web address] Unavailable Unavailable HORTENCIA PEREZ A. Unavailable Unavailable Unavailable Primary Care Provider UnavailOSBALDO Kamara Referring Unavailable RABIA TUCKER Consulting Unavailable GRIS GARCIA Attending Unavailable GRIS GARCIA Admitting Unavailable JUSTIN AMES Referring Unavailable CECELIA HERNANDEZ Attending Unavailable OSBALDO TERAN Attending Unavailable Unavailable Primary Care Provider UnavailThania Singh MD Primary Care Provider THANIA VILLEGAS Attending Unavailable SADOUN, THANIA Referring Unavailable SADOUN, THANIA Primary Care Unavailable SADOUN, THANIA Primary Care Unavailable JUAN VILLEGASE Attending Unavailable GABRIELE, THANIA Referring Unavailable ELSA, JEANIE Attending Unavailable ELSA, JEANIE Referring Unavailable SADOUN, THANIA Primary Care Unavailable HAIRSTON, KITTY Attending Unavailable HAIRSTON, KITTY Referring Unavailable SADOUN, THANIA Primary Care Unavailable MINOR, AUNG Attending Unavailable MINOR, AUNG Referring Unavailable SADOUN, HTANIA Primary Care Unavailable MINOR, AUNG Attending Unavailable MINOR, AUNG Referring Unavailable SADOUN, THANIA Primary Care Unavailable HAIRSTON, KITTY Admitting Unavailable HAIRSTON, KITTY Attending Unavailable SCHOEKSENIA, SHAHZAD Admitting Unavailable SCHOEKSENIA, SHAHZAD Attending Unavailable BENOUN, THANIA Primary Care Unavailable LINDA WHITEHEAD Admitting Unavailable LINDA WHITEHEAD Attending Unavailable ELSA, JEANIE Referring Unavailable SADOUN, THANIA Attending Unavailable SADOUN, THANIA Primary Care Unavailable JAVAD MENDEZ Attending Unavailable JAVAD MENDEZ Referring Unavailable SCHSHAHZAD AGUILAR Attending Unavailable SHAHZAD WALKER Referring Unavailable SADOUN, THANIA Primary Care Unavailable Luciano III, Cande Bassem Primary Care Provide r GABBY JONES DO Consulting Unavailable GABBY JONES DO Referring Unavailable NED KHAN MD Admitting Unavailable NED KHAN MD Primary Care Unavailable NED KHAN MD Attending Unavailable PROVIDER, UNKNOWN Consulting Unavailable PROVIDER, UNKNOWN Consulting Unavailable GABBY JONES DO Admitting Unavailable GABBY JONES DO Primary Care Unavailable GABBY JONES DO Consulting Unavailable GABBY JONES DO Attending Unavailable PROVIDER, UNKNOWN Consulting Unavailable PROVIDER, UNKNOWN Consulting Unavailable LUCIANO III, CANDE BASSEM Primary Care Unav ailable LUCIANO III, CANDE BASSEM Primary Care Unav ailable Care Physician, No Primary Primary Care Provider Unavailable Dr. Jerod Davis DO Emergency Provider [phone] Care Physician, No Primary Primary Care Unava ilable Mary Messer Attending Unavailable Care Physician, No Primary Primary Care Unava ilable Daniel Ch Attending Unavailable Care Physician, No Primary Primary Care Unava ilable Fran Nice Attending Unavailable Jerod Davis Attending Unavailable Care Physician, No Primary Primary Care Unava ilable Allergies Allergy Classification Reported Allergen(s) Allergy Type Date of Onset Reaction(s) Facility (5 sources) QUEtiapine Drug Allergy 2 Shortness Of Breath [facility] (6 sources) Latex; Translations: [LATEX] Propensity to adverse reactions to drug 7 Itching [facility] (1 source) Ciprofloxacin Drug Allergy 3 Muscle Aches [facility] (1 source) 08/11/2018 (-) MRSA SCREEN NARES; Translations: [08/11/2018 (-) MRSA SCREEN NARES] Propensity to adverse reactions (disorder) [facility] (1 source) QUEtiapine Drug Allergy 5 [facility] Medications Current Medications Medication Drug Class(es) Dates Sig (Normalized) Sig (Original) acetaminophen 500 mg oral tablet (1 source) Start: 10-05-2020 acetaminophen (TYLENOL) tablet 500 mg amphetamine aspartate 2.5 mg / amphetamine sulfate 2.5 mg / dextroamphetamine saccharate 2.5 mg / dextroamphetamine sulfate 2.5 mg oral tablet (1 source) Central Nervous System Stimulant take 1 tablet by mouth once daily amphetamine-dextro amphetamine (ADDERALL) 10 MG tablet Take 10 mg by mouth daily. 0 Active cephalexin 500 mg oral capsule (1 source) Cephalosporin Antibacterial Start: 11-23-2022 take 1 capsule by mouth four times daily cephalexin (KEFLEX) 500 MG capsule Indications: Acute cystitis with hematuria Take 1 capsule by mouth 4 times daily. 40 capsule 0 11/23/2022 Active Start: 11-23-2022 take 1 capsule by mo [facility] four times daily cephalexin (KEFLEX) 500 MG capsule Indications: Acute cystitis with hematuria Take 1 capsule by mouth 4 times daily. 40 capsule 0 11/23/2022 Active ciprofloxacin 3 mg/ml ophthalmic solution (1 source) Quinolone Antimicrobial Start: 09-24-2024 Ciprofloxacin Hcl 0.3 % drops Active 2 NMA EACH EYE 4 TIMES DAILY 03 04September 24, 2024 12:00am cyclobenzaprine hydrochloride 5 mg oral tablet (1 source) Muscle Relaxant Start: 10-10-2022 take 1 tablet by mouth once daily in the evening cyclobenzaprine (FLEXERIL) 5 MG tablet Take 1 tablet by mouth every evening. 30 tablet 1 10/10/2022 Active Desvenlafaxine (1 source) Serotonin and Norepinephrine Reuptake Inhibitor Desvenlafaxine Succinate (PRISTIQ PO) Take by mouth. 0 Active doxycycline monohydrate 100 mg oral tablet (5 sources) Tetracycline-class Drug Start: 09-08-2024 End: 09-13-2024 take 1 tablet by mouth twice daily doxycycline monohydrate 100 mg tablet Take 1 tablet by mouth two times a day for 5 days. 10 tablet 09/08/2024 09/13/2024 Active Start: 11-16-2022 End: 09-08-2024 take 1 capsule by mouth twice daily Doxycycline Hyclate (VIBRAMYCIN) 100 MG capsule Indications: PID (acute pelvic inflammatory disease) Take 1 capsule by mouth two times a day for 14 days. 28 capsule 0 11/16/2022 11/30/2022 Active ibuprofen 600 mg oral tablet (4 sources) Nonsteroidal Anti-inflammatory Drug Start: 10-05-2020 take 1 tablet by mouth every six hours as needed for pain ibuprofen (ADVIL,MOTRIN) 600 MG tablet Indications: Sciatica of right side Take 1 tablet by mouth every 6 hours as needed for Pain. 30 tablet 1 10/05/2020 Active IBUPROFEN ORAL T bunny by mouth. Active IBUPROFEN ORAL T bunny by mouth. 0 Active ketorolac tromethamine 10 mg oral tablet (2 sources) Nonsteroidal Anti-inflammatory Drug, Cyclooxygenase Inhibitor Start: 09-26-2022 End: 10-01-2022 take 1 tablet by mouth every six hours as needed ketorolac (TORADOL) 10 MG tablet Take 1 tablet by mouth every 6 hours as needed for Pain for up to 5 days. 20 tablet 0 09/26/2022 10/01/2022 Active Start: 09-26-2022 End: 09-26-2022 Ketorolac (TORADOL) injectio n 30 mg lidocaine 0.05 mg/mg medicated patch (1 source) Antiarrhythmic, Amide Local Anesthetic Start: 10-05-2020 apply 1 dose transdermal route every twenty-four hours, then apply 1 dose transdermal route every twelve hours lidocaine (LIDODERM) 5 % patch Indications: Sciatica of right side Place 1 patch onto the skin every 24 hours. Remove and discard patch within 12 hours or as directed by MD 30 patch 0 10/05/2020 Active lithium carbonate 300 mg oral capsule (2 sources) Start: 08-07-2021 lithium capsule 600 mg take 1 capsule by mouth at bedti me lithium 600 MG capsule Take 600 mg by mouth at bedtime 0 Active lurasidone hydrochloride 20 mg oral tablet (1 source) Atypical Antipsychotic Start: 09-24-2024 take 1 tablet by mouth once daily in the evening Lurasidone 20 mg tablet Active 20 mg PO EVERY EVENING September 24, 2024 12:00am melatonin 5 mg disintegrating oral tablet (1 source) Start: 07-15-2022 Melatonin 5 MG TBDP metroNIDAZOLE 500 mg oral tablet (1 source) Nitroimidazole Antimicrobial Start: 11-16-2022 End: 11-30-2022 take 1 tablet by mouth twice daily metroNIDAZOLE (FLAGYL) 500 MG tablet Indications: PID (acute pelvic inflammatory disease) Take 1 tablet by mouth two times a day for 14 days. 28 tablet 0 11/16/2022 11/30/2022 Active mupirocin 0.02 mg/mg topical ointment (1 source) RNA Synthetase Inhibitor Antibacterial Start: 09-08-2024 End: 09-15-2024 mupirocin (BACTROBAN) 2 % ointment Apply to affected area three times a day for 7 days. 15 g 09/08/2024 09/15/2024 Active naloxone hydrochloride 40 mg/ml nasal spray (1 source) Opioid Antagonist Start: 07-15-2022 Naloxone HCl (NARCAN) 4 MG/0.1ML LIQD nasal solution ofloxacin 3 mg/ml otic solution (1 source) Quinolone Antimicrobial Start: 09-08-2024 End: 09-15-2024 ofloxacin (FLOXIN) 0.3 % otic solution Use 10 drops in the right ear once daily for 7 days. 5 mL 09/08/2024 09/15/2024 Active OXcarbazepine 150 mg oral tablet (1 source) Anti-epileptic Agent take 1 tablet by mouth twice daily OXcarbazepine (TRILEPTAL) 150 MG tablet Take 150 mg by mouth two times a day. 0 Active 1.5 ml paliperidone palmitate 156 mg/ml prefilled syringe (2 sources) Atypical Antipsychotic Start: 07-19-2022 INVEGA SUSTENNA 234 MG/1.5ML CATHY injection Start: 08-14-2021 take 1 tablet by magali th once daily paliperidone (INVEGA) 3 MG extended release tablet Take 1 tablet by mouth daily 30 tablet 3 08/14/2021 Active microencapsulated potassium chloride 20 meq extended release oral tablet (1 source) Start: 08-07-2021 potassium chlo ride (KLOR-CON M) extended release tablet 40 mEq vortioxetine 10 mg oral tablet (1 source) take 1 tablet by mouth once daily Vortioxetine (TRINTELLIX) 10 MG TABS tablet Take 10 mg by mouth daily. 0 Active Completed/Discontinued Medications Medication Drug Class(es) Dates Sig (Normalized) Sig (Original) cefTRIAXone 250 mg injection (1 source) Cephalosporin Antibacterial Start: 11-23-2022 End: 11-23-2022 cefTRIAXone (ROCEPHIN) IM injection 1 g dicyclomine hydrochloride 10 mg oral capsule (1 source) Anticholinergic Start: 04-15-2024 End: 09-24-2024 take 1 capsule by mouth three times daily Dicyclomine 10 mg capsule Discontinued 10 mg PO THREE TIMES A DAY 15 5 April 15, 2024 1:00am September 24, 2024 6:35am 2 ml fentaNYL 0.05 mg/ml injection (1 source) Opioid Agonist Start: 11-23-2022 End: 11-23-2022 fentaNYL Citrate (PF) (SUBLIMAZE) 100 MCG/2ML injection 50 mcg LOCM iohexol (OMNIPAQUE 300 MG/ML) injection 100 mL (1 source) Start: 11-23-2022 End: 11-23-2022 LOCM iohexol (OMNIPAQUE 300 MG/ML) injection 100 mL LORazepam 1 mg oral tablet (1 source) Benzodiazepine Start: 11-23-2022 End: 11-23-2022 LORazepam (ATIVAN) tablet 1 mg ondansetron 4 mg disintegrating oral tablet (5 sources) Serotonin-3 Receptor Antagonist Start: 04-15-2024 End: 09-24-2024 take 1 tablet by mouth every six hours as needed for nausea and vomiting Ondansetron 4 mg tablet,disintegra ting Discontinued 4 mg PO EVERY 6 HOURS as needed for nausea and vomiting April 15, 2024 1:00am September 24, 2024 6:35am Start: 11-23-2022 End: 11-23-2022 ondansetron hcl (ZOFRAN) inj ection 4 mg Start: 01-17-2017 take 1 tablet by magali th every eight hours as needed ondansetron orally disintegrating (ZOFRAN ODT) 4 mg disintegrating tablet Take 1 tablet by mouth every 8 hours as needed. DISSOLVE ON TONGUE 20 tablet 1 01/17/2017 Active 50 ml sodium chloride 9 mg/ml injection (1 source) Start: 11-23-2022 End: 11-23-2022 sodium chloride 0.9% bolus 0.9 % solution 1,000 mL sulfamethoxazole 800 mg / trimethoprim 160 mg oral tablet (1 source) Dihydrofolate Reductase Inhibitor Antibacterial, Sulfonamide Antimicrobial Start: 04-21-2020 End: 04-15-2024 Sulfamethoxazole-Tri methoprim 1 TABLET tablet Discontinued 1 {tbl} PO TWICE A DAY April 21, 2020 1:00am April 15, 2024 3:56pm Problems Active Problems Problem Classification Problem Date Documented Date Episodic/Chronic Anxiety disorders (4 sources) Posttraumatic stress disorder; Translations: [Post-traumatic stress disorder, unspecified] Onset: 08-08-2021 08-08-2021 Chronic Attention-deficit, conduct, and disruptive behavior disorders (2 sources) Attention deficit hyperactivity disorder, predominantly inattentive type; Translations: [Attention-deficit hyperactivity disorder, predominantly inattentive type] Onset: 08-08-2021 08-08-2021 Chronic Attention-deficit, conduct, and disruptive behavior disorders (1 source) Attention-deficit hyperactivity disorder, predominantly inattentive type; Translations: [Attention-deficit hyperactivity disorder, predominantly inattentive type] Onset: 10-10-2022 Chronic Fluid and electrolyte disorders (1 source) Hypokalemia; Translations: [Hypokalemia] Episodic Genitourinary symptoms and ill-defined conditions (2 sources) Frequency of micturition; Translations: [Dysuria] Onset: 10-20-2022 11-02-2023 Episodic Headache, including migraine (1 source) Headache; Translations: [HEADACHE] Onset: 12-08-2017 Episodic Immunizations and screening for infectious disease (2 sources) Contact with and (suspected) exposure to infections with a predominantly sexual mode of transmission; Translations: [Exposure to streptococcal pharyngitis] Onset: 10-20-2022 11-02-2023 Episodic Menstrual disorders (2 sources) Amenorrhea; Translations: [Amenorrhea, unspecified] Onset: 10-10-2022 10-10-2022 Chronic Mood disorders (4 sources) Depressive disorder; Translations: [Depression with suicidal ideation] Onset: 08-07-2021 Chronic Mood disorders (1 source) Mood disorders; Translations: [Depression, unspecified] Onset: 10-10-2022 Nausea and vomiting (2 sources) Nausea; Translations: [Nausea and vomiting] Onset: 12-08-2017 11-02-2023 Episodic Other aftercare (2 sources) Other prison (current) drug therapy; Translations: [Other prison (current) drug therapy] Onset: 01-23-2023 Episodic Other circulatory disease (1 source) Inferior vena cava filter in situ; Translations: [Presence of other vascular implants and grafts] Onset: 12-26-2021 10-10-2022 Chronic Other circulatory disease (1 source) Presence of other vascular implants and grafts; Translations: [Presence of other vascular implants and grafts] Onset: 10-10-2022 Chronic Other ear and sense organ disorders (1 source) Acute otitis externa of right ear; Translations: [Unspecified acute noninfective otitis externa, right ear] 09-08-2024 Episodic Other lower respiratory disease (1 source) Nodule of lung; Translations: [Solitary pulmonary nodule] Onset: 10-10-2022 10-10-2022 Episodic Other upper respiratory disease (1 source) Lesion of nose; Translations: [Other specified disorders of nose and nasal sinuses] 09-08-2024 Episodic Schizophrenia and other psychotic disorders (3 sources) Schizoaffective disorder, bipolar type; Translations: [Schizoaffective disorder, bipolar type] Onset: 08-08-2021 08-08-2021 Chronic Substance-related disorders (3 sources) Stimulant dependence; Translations: [Other stimulant dependence, in remission] Onset: 08-08-2021 10-10-2022 Chronic Substance-related disorders (1 source) Stimulant abuse; Translations: [Other stimulant use, unspecified, uncomplicated] Onset: 08-08-2021 08-08-2021 Episodic Superficial injury; contusion (2 sources) Abrasion of cornea of right eye; Translations: [Injury of conjunctiva and corneal abrasion without foreign body, right eye, initial encounter] Onset: 09-30-2024 09-24-2024 Episodic Unclassified (1 source) Other specified postprocedural states; Translations: [OTHER SPECIFIED POSTPROCEDURAL STATES] Onset: 12-08-2017 Urinary tract infections (6 sources) Urinary tract infection, site not specified; Translations: [Acute cystitis] Onset: 12-08-2017 Episodic Past or Other Problems Problem Classification Problem Date Documented Da te Episodic/Chronic Abdominal pain (4 sources) Pain in pelvis; Translations: [Pelvic and perineal pain] Onset: 09-26-2022 Episodic Allergic reactions (1 source) Allergy status to other drugs, medicaments and biological substances status; Translations: [Allergy status to other drugs, medicaments and biological substances] Onset: 01-23-2023 Episodic Bacterial infection; unspecified site (2 sources) Chlamydial infection, unspecified; Translations: [Unspecified Escherichia coli [E. coli] as the cause of diseases classified elsewhere] Onset: 10-26-2022 Episodic Crushing injury or internal injury (2 sources) Crush injury of right hand; Translations: [Crushing injury of right hand, initial encounter] Onset: 12-28-2023 12-24-2023 Episodic Inflammatory diseases of female pelvic organs (1 source) Acute parametritis and pelvic cellulitis; Translations: [Acute parametritis and pelvic cellulitis] Onset: 11-16-2022 Episodic Other lower respiratory disease (1 source) Solitary pulmonary nodule; Translations: [Solitary pulmonary nodule] Onset: 10-10-2022 Episodic Other screening for suspected conditions (not mental disorders or infectious disease) (2 sources) Abnormal findings on diagnostic imaging of skull and head, not elsewhere classified; Translations: [Encounter for screening mammogram for malignant neoplasm of breast] Onset: 10-10-2022 Episodic Other upper respiratory infections (2 sources) Viral upper respiratory tract infection; Translations: [Acute upper respiratory infection, unspecified] Onset: 06-19-2024 05-28-2024 Episodic Phlebitis; thrombophlebitis and thromboembolism (2 sources) H/O: Deep vein thrombosis; Translations: [Personal history of other venous thrombosis and embolism] Onset: 12-26-2021 10-10-2022 Episodic Residual codes; unclassified (1 source) Other specified postprocedural states; Translations: [Other specified postprocedural states] Onset: 10-10-2022 Episodic Suicide and intentional self-inflicted injury (2 sources) Suicidal ideations; Translations: [SUICIDAL IDEATIONS] Onset: 12-08-2017 Episodic Results Test Name Value Interpretation Reference Range Facility Emergency Department Summary on 09-24-2024 Emergency Department Summary [facility] Medical Records Department [address] [place] [id number] Emergency Department Summary 09/24/24 MR#: [id number] Acct: [id number] Name: PRANEETH PORRAS Rep #: [id number] : 1990 34 From: Jerod Davis DO PCP: Care Physician,No Primary Status:DEP ER Location: ED HPI History of Present Illness Chief Complaint: Eye Problem Informant: patient Narrative Narrative: Patient is a 34-year-old female with past medical history of schizophrenia. She states around 2 in the morning she poked herself in the right eye with her fingernail. She states that since that time she has had increased tearing light sensitivity and pain. She reports she wears glasses but denies any contact lens use. She states she is concerned she has a scratch to her eye and secondary to this comes in for evaluation. [facility] Medical History Pulmonary embolism Pulmonary embolism Paranoid schizophrenia Home Medications ???Medication ???Instructions ???Recorded ???Last Taken ???Type ciprofloxacin HCl 0.3 % eye drops 2 drp EACH EYE 4X/DAY 7 days #10 mL 09/24/24 Unknown Rx lurasidone 20 mg tablet 20 mg PO QPM 09/24/24 Unknown Hist ory Allergy/AdvReac Type Severity Reaction Status Date / Time quetiapine (From Seroquel) Allergy Chest Verified 09/24/24 06:35 tightness Social History household members: family current occupational status: employed Smoking Status: Current every day smoker tobacco type: e-cigarettes ROS ROS ED Constitutional Constitutional ED: Denies chills or fever(s) Eyes Eyes: Reports other Details: Positive photophobia ; Denies diplopia ENT ENT ED: Denies sore throat Cardiovascular Cardiovascular: Denies chest pain Respiratory/Chest Respiratory/Chest: Denies cough or dyspnea Gastrointestinal Gastrointestinal: Denies abdominal pain, diarrhea, nausea or vomiting Musculoskeletal Musculoskeletal: Denies myalgias Integumentary Denies rash Neurologic Neurologic: Denies headache(s) Hematologic/Lymphatic Hematologic/Lymphatic: Denies easy bleeding or easy bruising EXAM Physical Exam Const Vital Signs: 09/24/24 06:32 Temperature 97.5 F L Temperature Source Oral Pulse Rate 68 Respiratory Rate 18 Blood Pressure 144/98 H Blood Pressure Mean 113 Pulse Ox 100 Oxygen Delivery Method Room Air Positive well nourished and well developed General Appearance ED: well developed HEENT HEENT Narrative: Normocephalic atraumatic Eyes PERRL and EOMs intact bilaterally Eyes Narrative: Pupils are equal reactive to light and accommodation and extraocular muscles are in place There is mild scleral injection noted mainly along the medial aspect of the right eye with slight increased tearing noted Upper lid was everted there is no foreign object Patient had complete relief of pain with tetracaine Slit lamp examination shows a small corneal abrasion along the 5 to 6 o'clock position over top the sclera without foreign body Negative Donna sign Neck supple Resp normal respiratory effort and clear to auscultation bilaterally Cardio regular rate and regular rhythm Extremity normal to inspection Neuro oriented x3, CN's II-XII intact bilaterally, moves all extremities and no sensory deficits noted Sensorium / Orientation: alert Motor Exam: strength 5/5 throughout Psych mental status grossly normal Skin no rashes or lesions noted MDM MDM MDM Narrative Medical decision making narrative: Patient arrived to the ER with stable vitals and reported accidental trauma to the right eye. General diagnosis is for corneal abrasion versus globe rupture versus foreign object. By exam there is no signs of globe rupture and there is no foreign body present. There is a small corneal abrasion consistent with her history and symptoms. At this time without globe rupture there is no need for emergent ophthalmology consultation and she also does not have a hyphema. She does not wear contact lenses but there is concern for secondary infection so she will be placed on ciprofloxacin eyedrops secondary to this. She is otherwise safe for discharge and can follow-up with ophthalmology on an outpatient basis History Record Review Discussion w/independent historian: Patient Discharge Plan Triage Chief Complaint: Eye Problem ED Provider: Jerod aDvis Dx/Rx/DC Orders Clinical Impression: Corneal abrasion, right, Schizophrenia Instructions: ED Corneal Abrasion Prescriptions: New ciprofloxacin HCl 0.3 % drops 2 drp EACH EYE 4X/DAY 7 Days Qty: 10 0RF No Action lurasidone 20 mg tablet 20 mg PO QPM Stand Alone Forms: ED Work / School Excuse Primary Care Prov (more content not included)... Normal [facility] 09-08-2024 CNOV Office Visit ([facility] ) PRANEETH PORRAS ([id number]) 1990 F DEF Date Time Provider Department 09/08/24 1:30 PM MILLER KEYES [facility] During your visit today, we recorded the following information about you: Temperature Pulse Respiration Blood pressure 98.8 degrees 80/minute 18/minute 96/61 Weight 57.5 kg Miller Keyes, PA 09/08/2024 1:39 PM Signed [facility] Subjective Praneeth Porras is a 34 year old female. Patient presents with: Ear Pain: Sharp, stabbing and itching in right ear x 1 month Nose Problem: Left nostril has a sore x 1 week, increasing in size and causing pain, hx staph infection of nostril HPI 34-year-old female presents for multiple complaints. Patient states she has been having pain and itchiness in her right ear for the past month. It has gotten worse over the past week. She feels like she has a sore pimple in the ear. She denies any drainage from the ear. No fevers, cough or congestion. Patient also reporting a sore in her left nostril. She states that she feels like she has a pimple in the nostril. It is slightly swollen and red and sore to touch. She has been wiping her nose a lot more recently. 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 No other complaint. PAST MEDICAL HISTORY Diagnosis Date Anxiety and depression Breast cancer (HCC) age 17 in situ Deafness partially deaf PAST SURGICAL HISTORY Procedure Laterality Date PAST SURGICAL HISTORY OF age 17 lumpectomy in Left Breast ALLERGIES Latex MEDICATIONS IBUPROFEN ORAL Take by mouth. mupirocin (BACTROBAN) 2 % ointment Apply to affected area three times a day for 7 days. doxycycline monohydrate 100 mg tablet Take 1 tablet by mouth two times a day for 5 days. ofloxacin (FLOXIN) 0.3 % otic solution Use 10 drops in the right ear once daily for 7 days. ondansetron orally disintegrating (ZOFRAN ODT) 4 mg disintegrating tablet Take 1 tablet by mouth every 8 hours as needed. DISSOLVE ON TONGUE (Patient not taking: Reported on 09/08/2024) FAMILY HISTORY Problem Relation Age of Onset other (schizophrenia) Mother other (brain tumor) Mother Social History Tobacco Use Smoking status: Former Smokeless tobacco: Never Substance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 medical history no medical history Home Medications ???Medication ???Instructions ???Recorded ???Last Taken ???Type sulfamethoxazole 800 1 tab PO BID #6 tabs 04/21/20 Unknown Rx mg-trimethoprim 160 mg tablet Allergy/AdvReac Type Severity Reaction Status Date / Time No Known Allergies Allergy Verified 12/16/23 12:46 Family History no significant family his Surgical History no surgical history Social History Smoking Status: Former smoker ROS ROS ED Constitutional Constitutional ED: Denies chills or fever(s) Eyes Eyes: Denies change in vision ENT ENT ED: Denies rhinorrhea or sore throat Cardiovascular Cardiovascular: Denies chest pain or palpitations Respiratory/Chest Respiratory/Chest: Denies cough or dyspnea Gastrointestinal Gastrointestinal: Denies abdominal pain, diarrhea or vomiting Musculoskeletal Musculoskeletal: Reports other Details: Right hand pain Integumentary Denies Abrasions or rash EXAM Physical Exam Const Vital Signs: 12/16/23 12:45 Temperature 98 F Temperature Source Temporal Pulse Rate 85 Respiratory Rate 14 Blood Pressure 137/97 H Blood Pressure Mean 110 Pulse Ox 98 Oxygen Delivery Method Room Air Positive well nourished and well developed General Appearance ED: well developed HEENT Reports moist mucous membranes Eyes EOMs intact bilaterally Eyes Narrative: Subconjunctival hemorrhage noted medial left eye. Chest Wall inspection of chest normal and palpation of chest normal Resp normal respiratory effort and clear to auscultation bilaterally Cardio regular rate and regular rhythm GI non-tender Palpation: soft Extremity Extremity Narrative: Edema and tenderness palpation at the third MCP joint on the right hand. No abrasions or lacerations noted. Good cap refill distally. Slight decreased range of motion secondary to pain and swelling. Neuro oriented x3 and moves all extremities MDM MDM MDM Narrative Medical decision making narrative: Ice pack given. Patient given Naprosyn for pain. Right hand x-rays obtained to evaluate for potential fracture. Treatment and Re-Evaluation Narrative: Right hand x-ray per my interpretation reveals no evidence of acute fracture. Radiology interpretation reviewed and agrees. 2 x 2 gauze squares placed over the area of swelling and hand wrapped with an Musa wrap. She was advised to ice and elevate above the level of her heart to help with swelling. She can take Tylenol or ibuprofen as needed for pain. Return instructions given. Discharge Plan Triage Chief Complaint: Upper Extremity Injury ED Provider: Mary Messer Dx/Rx/DC Orders Clinical Impression: Crushing injury of right hand Instructions: ED Crush Injury, Hand Prescriptions: No Action sulfamethoxazole-trime thoprim 1 TABLET tablet 1 tab PO BID Qty: 6 0RF Primary Care Provider: Gabby Jones Referrals: Gabby Jones DO [Primary Care Provider] - 1 Week if not improving Print Language: Maldivian Disposition Disposition: Home, Self Care What to do if you have Problems For any increased pain, shortness of breath, bleeding, nausea or vomiting, chest pain, or any unexpected problems, contact your Primary Care Provider. Call [facility] ([phone]) or report to the closest Emergency Room. Call 911 if necessary. 12/16/23 1454 Cosigner Signature (if applicable): CC: No Primary Care Physician Signed Normal [facility] Hand Min 3 Viewson 4 Hand Min 3 Views [facility] [address] [place], [place] [address] Hand Min 3 Views MR#: [id number] Acct: [id number] Name: PRANEETH PORRAS Rep #: [id number] : 1990 F 33 From: Phil Warner MD PCP: Care Physician,No Primary Status: [facility] Study: Hand Min 3 Views Date of Exam: 12/16/23 Exam# [id number] Ordering Dr: Mary Messer MD [id number] STUDY: X-RAY - RIGHT HAND REASON FOR EXAM: Female, 33 years old. Pain and swelling TECHNIQUE: 3 view(s) of the hand. COMPARISON: None. FINDINGS: Normal radiocarpal articulation. Normal distal radioulnar joint. Normal visualized carpal bones. Normal carpal articulations Normal carpometacarpal articulation of the thumb. Normal second through fifth carpometacarpal joints. Normal metacarpi. Normal metacarpophalangeal joint of the thumb. Normal interphalangeal joint of the thumb. Normal proximal and distal phalanges of the thumb. Normal metacarpophalangeal joints of the second through fifth fingers. Normal proximal and distal interphalangeal joints of the second through fifth fingers. Normal phalanges of the second through fifth fingers. Dorsal soft tissue swelling RAD/Hand Min 3 Views IMPRESSION: No fracture or suspicious osseous lesion Dorsal soft tissue swelling Electronically Signed: Herb Warner MD at 13:12 EDT , CC: Dr. 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 Please call patient let her know if her symptoms are persistent that she should follow-up with primary care. Sedrick Cox 11/03/2023 6:02 PM Signed Patient verbally understands culture was normal and if symptoms persist to see PCP. Sedrick Cox Allergies As of Date: 11/03/2023 Noted Allergy Reaction LATEX 01/17/2017 9 - Itching Date Reviewed: 11/02/2023 Reviewed by: Sedrick Cox - Fully Assessed Reason for Visit: Results [95] Prescriptions as of 11/03/2023 - doxycycline hyclate (VIBRAMYCIN) 100 mg capsule Take 100 mg by mouth twice daily. - IBUPROFEN ORAL Take by mouth. - ondansetron orally disintegrating (ZOFRAN ODT) 4 mg disintegrating tablet Take 1 tablet by mouth every 8 hours as needed. DISSOLVE ON TONGUE Problem List As Of Date: 11/03/2023 (None) Encounter Status:Closed by SEDRICK COX on 11/03/[address] [facility] Bacteria Ur Culton 4 Bacteria identified Cx Nom (U) ORGANISM ID: 1 10,000 -<50,000 CFU/ml Normal urogenital blanca Normal [facility] Comment on above: Performed By: #### 6 30-4 #### [facility] CLIA [id number] [address] [place] [address] CNOVon 11-02-2023 CNOV Office Visit ([facility] ) PRANEETH PORRAS ([id number]) 1990 F DEF Date Time Provider Department 11/02/23 2:45 PM MILLER KEYES [facility] During your visit today, we recorded the following information about you: Temperature Pulse Respiration Blood pressure 97.7 degrees 76/minute 16/minute 122/72 Weight 55.6 kg Miller Keyes PA 11/02/2023 3:05 PM Signed This note was created using [employer]. Subjective Praneeth Porras is a 33 year old female. HPI 33-year-old female presents for fever, chills, vomiting starting this morning. Patient states she got up this morning and had 2 episodes of vomiting. She has been able to drink Mountain Dew since. She has been able to eat today. She reports she still feels nauseous, but has not vomited for several hours. She denies any diarrhea. No abdominal pain or back pain. No pelvic pain. She does report she has had some burning with urination the past 2 to 3 days. No blood in the urine. Patient states that this morning she had a fever of 101 ?F. She has not taken any Tylenol or Motrin. She denies any vaginal discharge. LMP was last month. No concern for , states that her has a vasectomy. No concern for STD. Patient does have a little bit of a sore throat, states her son had strep last week. She denies any congestion, cough, ear pain, difficulty swallowing. No other complaint. PAST MEDICAL HISTORY Diagnosis Date Anxiety and depression Breast cancer (HCC) age 17 in situ Deafness partially deaf PAST SURGICAL HISTORY Procedure Laterality Date PAST SURGICAL HISTORY OF age 17 lumpectomy in Left Breast ALLERGIES Latex MEDICATIONS doxycycline hyclate (VIBRAMYCIN) 100 mg capsule Take 100 mg by mouth twice daily. IBUPROFEN ORAL Take by mouth. ondansetron orally disintegrating (ZOFRAN ODT) 4 mg disintegrating tablet Take 1 tablet by mouth every 8 hours as needed. DISSOLVE ON TONGUE FAMILY HISTORY Problem Relation Age of Onset other (schizophrenia) Mother other (brain tumor) Mother Social History Tobacco Use Smoking status: Former Smokeless tobacco: Never Substance Use Topics Alcohol use: No Drug use: No Review of Systems Constitutional: Positive for chills and fever. HENT: Positive for sore throat. Negative for congestion and ear pain. Respiratory: Negative for cough and shortness of breath. Cardiovascular: Negative for chest pain. Gastrointestinal: Positive for nausea and vomiting. Negative for abdominal pain and diarrhea. Objective BP 122/72 Pulse 76 Temp 36.5 ?C (97.7 ?F) Resp 16 Wt 55.6 kg (122 lb 9.2 oz) LMP 12/06/2016 SpO2 97% BMI 21.71 kg/m? Physical Exam Vitals and nursing note reviewed. Constitutional: General: She is not in acute distress. Appearance: Normal appearance. She is not toxic-appearing. HENT: Right Ear: Tympanic membrane and ear canal normal. Left Ear: Tympanic membrane and ear canal normal. Nose: Nose normal. Mouth/Throat: Mouth: Mucous membranes are moist. Pharynx: Uvula midline. Posterior oropharyngeal erythema present. No oropharyngeal exudate. Tonsils: No tonsillar exudate or tonsillar abscesses. 1+ on the right. 1+ on the left. Eyes: Conjunctiva/sclera: Conjunctivae normal. Cardiovascular: Rate and Rhythm: Normal rate and regular rhythm. Pulmonary: Effort: Pulmonary effort is normal. Breath sounds: Normal breath sounds. Abdominal: Tenderness: There is abdominal tenderness (Mild) in the suprapubic area. There is no right CVA tenderness or left CVA tenderness. Neurological: Mental Status: She is alert. Assessment and Plan ASSESSMENT/PLAN: 1. Nausea and vomiting, unspecified vomiting type - ICD9: 787.01, ICD10: R11.2 (primary diagnosis) - STREP A MOLECULAR (POC)-negative - UA DIP, URINE (POC) - URINE CULTURE -Suspect viral. Has been tolerating fluids and able to eat since this morning. No episodes of vomiting for several hours. -Recommend bland diet, fluids, rest. - Discussed with patient if she develops abdominal pain, inability to keep down fluids, needs to be seen in emergency room. 2. Dysuria - ICD9: 788.1, ICD10: R30.0 acute - UA positive for trace ketones, trace protein - Send urine for culture - Patient education for prevention given - UA DIP, URINE (POC) - URINE CULTURE -Treat if urine culture comes back positive. -Patient denies concern for STD, declines STD testing. No concern for , declines test. 3. Exposure to strep throat - ICD9: V01.89, ICD10: Z20.818 - STREP A MOLECULAR (POC)- negative. Diagnosis and treatment plan were discussed and questions were answered to the patient's satisfaction. Pt acknowledged understanding of concepts and follow up plan. Specific signs and symptoms that would indicate the need for higher level of care were discussed in detail warranting prompt ER evalua (more content not included)... Normal [facility] STREP A MOLECULAR (POC)on Procedural Control Valid [facility] Strep A (POCT) Negative Negative [facility] UA DIP, URINE (POC)on 2023 BILIRUBIN UA (POCT) Negative Negative [facility] CLARITY UA (POCT) Clear [facility] COLOR UA (POCT) Yellow [facility] GLUCOSE UA (POCT) Negative Negative mg/dL [facility] Hemoglobin Ql (U) Negative Negative [facility] Interpretation and review of laboratory results Abnormal [facility] KETONE UA (POCT) Trace Negative mg/dL [facility] LEUKOCYTES UA (POCT) Negative Negative [facility] NITRITE UA (POCT) Negative Negative [facility] PH UA (POCT) 6.0 4.5 - 8.0 [facility] Protein Ql (U) Trace Abnormal Negative mg/dL [facility] SPECIFIC GRAVITY UA (POCT) 1.025 1.005 - 1.030 [facility] UROBILINOGEN UA (POCT) 0.2 Adela l E.U./dL [facility] Location:[facility], [address], [place], [address] [facility] POINT OF CARE [facility] CTA HEAD AND NECKon 01-25-20 CTA HEAD AND NECK CTA HEAD AND NECK INDICATION:32 years old; headache, brief episode of vision loss TECHNIQUE: CT angiogram of the head and neck was performed. Coronal, sagittal and 3-D reformats were created and reviewed. Intravenous contrast was was utilized without complication. Carotid stenosis measurements were made according to the NASCET criteria. Ionizing radiation dose reduced via iterative reconstruction/FBP blend and body size kV/mA adjustment. COMPARISON: None available at time of dictation. FINDINGS: NECK FINDINGS: AORTIC ARCH: Normal origin of the innominate, left common carotid and left subclavian arteries. ANTERIOR CIRCULATION: Common carotid arteries are patent. Carotid bifurcations are patent. Cervical ICA are patent up to the skull base. No stenosis or thrombus. No dissection. No aneurysm is seen. The left carotid artery is larger than the right consistent with developmental asymmetry. POSTERIOR CIRCULATION: The V1, V2, and V3 segments of vertebral arteries are patent. No stenosis or thrombus. No large vessel occlusion. No dissection. DEVELOPMENTAL ANOMALIES: None. OTHER: No thyroid nodule or adenopathy. HEAD BRAIN: Old lacunar infarction in the head of the caudate on the left.. No mass effect. No midline shift or herniation. No intraparenchymal or extra-axial hemorrhage. Normal felipe/white differentiation. No displaced or depressed calvarial fracture. Tiny cyst or polyp maxillary sinus on the right. Nasal septal deviation to the right with spur formation. Mastoids and middle ears are clear. No displaced or depressed calvarial fracture is seen. No hyperdense intraluminal thrombus is noted. ANTERIOR CIRCULATION: The intrapetrous, intracavernous, supraclinoid ICA are patent. Intracranial termini are patent. 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 Left A1 segment is enlarged. A2 segments are bilaterally symmetric. MCA patent. No stenosis or thrombus. No large vessel occlusion. Distal distributions are bilaterally symmetric. POSTERIOR CIRCULATION: The V4 segments are patent. PICA patent. The V4 segment on the right is hypoplastic which represents developmental variation. AICA patent on the left. Basilar artery and basilar tip are patent. SCA patent bilaterally. MATERIAL REPROCESSING ASSOCIATE patent bilaterally. There is takeoff of the MATERIAL REPROCESSING ASSOCIATE on the left. Distal MATERIAL REPROCESSING ASSOCIATE distributions are symmetric. No large vessel occlusion. DEVELOPMENTAL ANOMALIES: takeoff left MATERIAL REPROCESSING ASSOCIATE. Hypoplastic A1 segment right LILIAM. OTHER: No pathologic intracranial enhancing lesions are appreciated. The study is not optimized for evaluation the intracranial venous structures. 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 IMPRESSION: 1. Intracranial and extracranial vessels demonstrate no flow-limiting stenosis, thrombus, dissection, aneurysm, or large vessel occlusion. 2. 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 No acute intracranial abnormality. No hemorrhage or mass effect. No pathologic enhancement. Recommend follow-up with MRI including diffusion imaging if there is concern for acute infarction. Pt states she was at work and began to feel anxious. States that she then had loss of vision and numbness and tingling on right side. C/o right eye pain. 20g RAC 150mL [id number] given by [employer] problem with scanner after first bolus Normal [facility] HCG URINE (PREG)on 3 HCG ( test) Ql (U) Negative Normal [facility] Comment on above: Performed By: #### 4 [id number], [id number] #### TERA MATHEWS (2012) [facility] [address] [place] [address] BASIC METABOLIC PANELon 12-28 Anion gap [Moles/Vol] 14 mmol/L High - Gen [facility] Comment on above: Performed By: #### 4 [id number], [id number] #### TERA MATHEWS (2012) [facility] [address] [place] [address] Calcium [Mass/Vol] 9.7 mg/dL Normal 8.4-10.4 [facility] Comment on above: Performed By: #### 4 [id number], [id number] #### TERA MATHEWS (2012) [facility] [address] [place] [address] Chloride [Moles/Vol] 104 mmol/L Normal 96-109 [facility] Comment on above: Performed By: #### 4 [id number], [id number] #### TERA MATHEWS (2012) [facility] [address] [place] [address] CO2 [Moles/Vol] 21 mmol/L Low 22-30 [facility] Comment on above: Performed By: #### 4 [id number], [id number] #### TERA MATHEWS (2012) [facility] [address] [place] [address] Creatinine [Mass/Vol] 0.76 mg/dL Normal 0.52-1.04 [facility] Comment on above: Performed By: #### 4 [id number], [id number] #### TERA MATHEWS (2012) [facility] [address] [place] [address] GLOMERULAR FILTRATION RATE ML/MIN/1.73 SQ M.PREDICTED >90.0 Normal >=60.0 [facility] Comment on above: Result Comment: eGFR calculation based on the Chronic Kidney Disease Epidemiology Collaboration (CKD-EPI) equation refit without adjustment for race. Categories in Chronic Kidney Disease (CKD) Category: GFR(mL/min/1.73m^2) Interpretation: G1* 90 or greater Normal or high G2* 60-89 Mild decrease G3a 45-59 Mild to moderate decrease G3b 30-44 Moderate to severe decrease G4 15-29 Severe decrease G5 14 or less Kidney failure *G1&G2: In the absence of evidence of kidney damage, neither GFR category G1 nor G2 fulfill the criteria for CKD Kidney Int Suppl.2013;3:1-150 Performed By: #### 4 [id number], [id number] #### TERA MATHEWS (2012) [facility] [address] [place] [address] Glucose [Mass/Vol] 100 mg/dL Normal 65-100 [facility] Comment on above: Performed By: #### 4 [id number], [id number] #### TERA MATHEWS (2012) [facility] [address] [place] [address] Potassium [Moles/Vol] 3.0 mmol/L Low 3.6-5.1 [facility] Comment on above: Performed By: #### 4 [id number], [id number] #### TERA MATHEWS (2012) [facility] [address] [place] [address] Sodium [Moles/Vol] 139 mmol/L Normal 135-147 [facility] Comment on above: Performed By: #### 4 [id number], [id number] #### TERA MATHEWS (2012) [facility] [address] [place] [address] Urea nitrogen [Mass/Vol] 14 mg/dL Normal 8-26 [facility] Comment on above: Performed By: #### 4 [id number], [id number] #### TERA MATHEWS (2012) [facility] [address] [place] [address] CBC AND DIFFERENTIALon 01-23 ABSOLUTE BASOPHIL 0.1 x10*3/uL Normal 0.0-0.1 [facility] Comment on above: Performed By: #### 4 [id number] #### TERA MATHEWS (2012) [facility] [address] [place] [address] ABSOLUTE EOSINOPHIL 0.0 x10*3/uL Low 0.1-0.3 [facility] Comment on above: Performed By: #### 4 [id number] #### TERA MATHEWS (2012) [facility] [address] [place] [address] ABSOLUTE IMMATURE GRANULOCYTES 0.0 x10*3/uL Normal 0.0-0.1 [facility] Comment on above: Performed By: #### 4 [id number] #### TERA MATHEWS (2012) [facility] [address] [place] [address] ABSOLUTE LYMPH 1.7 x10*3/uL Normal 1.2-3.3 [facility] Comment on above: Performed By: #### 4 [id number] #### TERA MATHEWS (2012) [facility] [address] [place] [address] ABSOLUTE MONO 0.4 x10*3/uL Normal 0.2-0.6 [facility] Comment on above: Performed By: #### 4 [id number] #### TERA MATHEWS (2012) [facility] [address] [place] [address] ABSOLUTE NEUTROPHIL 4.3 x10*3/uL Normal 2.4-6.6 [facility] Comment on above: Performed By: #### 4 [id number] #### TERA MATHEWS (2012) [facility] [address] [place] [address] Basophils/100 WBC (Bld) 0.8 % Normal [facility] Comment on above: Performed By: #### 4 [id number] #### TERA MATHEWS (2012) [facility] [address] [place] [address] Eosinophils/100 WBC (Bld) 0.6 % Normal [facility] Comment on above: Performed By: #### 4 [id number] #### TERA MATHEWS (2012) [facility] [address] [place] [address] Erythrocyte distribution width (RBC) [Ratio] 13.3 % Normal 11.5-14.5 [facility] Comment on above: Performed By: #### 4 [id number] #### TERA MATHEWS (2012) [facility] [address] [place] [address] Hematocrit (Bld) [Volume fraction] 39.0 % Normal 33.6-46.8 [facility] Comment on above: Performed By: #### 4 [id number] #### TERA MATHEWS (2012) [facility] [address] [place] [address] Hemoglobin (Bld) [Mass/Vol] 13.3 g/dL Normal 11.7-15.8 [facility] Comment on above: Performed By: #### 4 [id number] #### TERA MATHEWS (2012) [facility] [address] [place] [address] Immature granulocytes/100 WBC (Bld) 0.2 % Normal [facility] Comment on above: Performed By: #### 4 [id number] #### TERA MATHEWS (2012) [facility] [address] [place] [address] Lymphocytes/100 WBC (Bld) 26.6 % Normal [facility] Comment on above: Performed By: #### 4 [id number] #### TERA MATHEWS (2012) [facility] [address] [place] [address] MCH (RBC) [Entitic mass] 30.8 pg Normal 27.5-32.3 [facility] Comment on above: Performed By: #### 4 [id number] #### TERA MATHEWS (2012) [facility] [address] [place] [address] MCHC (RBC) [Mass/Vol] 34.1 g/dL Normal 30.7-35.5 [facility] Comment on above: Performed By: #### 4 [id number] #### TERA MATHEWS (2012) [facility] [address] [place] [address] MCV (RBC) [Entitic vol] 90.3 fL Normal 80.2-99 [facility] Comment on above: Performed By: #### 4 [id number] #### TERA MATHEWS (2012) [facility] [address] [place] [address] Monocytes/100 WBC (Bld) 5.7 % Normal [facility] Comment on above: Performed By: #### 4 [id number] #### TERA MATHEWS (2012) [facility] [address] [place] [address] Neutrophils/100 WBC (Bld) 66.1 % Normal [facility] Comment on above: Performed By: #### 4 [id number] #### TERA MATHEWS (2012) [facility] [address] [place] [address] PLATELET COUNT 233 x10*3/uL Normal 150-400 [facility] Comment on above: Performed By: #### 4 [id number] #### TERA MATHEWS (2012) [facility] [address] [place] [address] RED BLOOD CELL COUNT 4.32 x10*6/uL Normal 3.60-5.20 [facility] Comment on above: Performed By: #### 4 [id number] #### TERA MATHEWS (2012) [facility] [address] [place] [address] WHITE BLOOD CELLS 6.5 x10*3/uL Normal 4.3-10.[address] [facility] Comment on above: Performed By: #### 4 [id number] #### TERA MATHEWS (2012) [facility] [address] [place] [address] CBC AND DIFFERENTIALon 11-23 ABSOLUTE BASOPHIL 0.1 x10*3/uL Normal 0.0-0.1 [facility] Comment on above: Performed By: #### 4 [id number], [id number] #### TERA MATHEWS (2012) [facility] [address] [place] [address] ABSOLUTE EOSINOPHIL 0.2 x10*3/uL Normal 0.1-0.3 [facility] Comment on above: Performed By: #### 4 [id number], [id number] #### TERA MATHEWS (2012) [facility] [address] [place] [address] ABSOLUTE IMMATURE GRANULOCYTES 0.0 x10*3/uL Normal 0.0-0.1 [facility] Comment on above: Performed By: #### 4 [id number], [id number] #### TERA MATHEWS (2012) [facility] [address] [place] [address] ABSOLUTE LYMPH 2.5 x10*3/uL Normal 1.2-3.3 [facility] Comment on above: Performed By: #### 4 [id number], [id number] #### TERA MATHEWS (2012) [facility] [address] [place] [address] ABSOLUTE MONO 0.4 x10*3/uL Normal 0.2-0.6 [facility] Comment on above: Performed By: #### 4 [id number], [id number] #### TERA MATHEWS (2012) [facility] [address] [place] [address] ABSOLUTE NEUTROPHIL 3.1 x10*3/uL Normal 2.4-6.6 [facility] Comment on above: Performed By: #### 4 [id number], [id number] #### TERA MATHEWS (2012) [facility] [address] [place] [address] Basophils/100 WBC (Bld) 1.0 % Normal [facility] Comment on above: Performed By: #### 4 [id number], [id number] #### TERA MATHEWS (2012) [facility] [address] [place] [address] Eosinophils/100 WBC (Bld) 3.3 % Normal [facility] Comment on above: Performed By: #### 4 [id number], [id number] #### TERA MATHEWS (2012) [facility] [address] [place] [address] Erythrocyte distribution width (RBC) [Ratio] 12.8 % Normal 11.5-14.5 [facility] Comment on above: Performed By: #### 4 [id number], [id number] #### TERA MATHEWS (2012) [facility] [address] [place] [address] Hematocrit (Bld) [Volume fraction] 40.2 % Normal 33.6-46.8 [facility] Comment on above: Performed By: #### 4 [id number], [id number] #### TERA MATHEWS (2012) [facility] [address] [place] [address] Hemoglobin (Bld) [Mass/Vol] 13.4 g/dL Normal 11.7-15.8 [facility] Comment on above: Performed By: #### 4 [id number], [id number] #### TERA MATHEWS (2012) [facility] [address] [place] [address] Immature granulocytes/100 WBC (Bld) 0.0 % Normal [facility] Comment on above: Performed By: #### 4 [id number], [id number] #### TERA MATHEWS (2012) [facility] [address] [place] [address] Lymphocytes/100 WBC (Bld) 40.0 % Normal [facility] Comment on above: Performed By: #### 4 [id number], [id number] #### TERA MATHEWS (2012) [facility] [address] [place] [address] MCH (RBC) [Entitic mass] 31.1 pg Normal 27.5-32.3 [facility] Comment on above: Performed By: #### 4 [id number], [id number] #### TERA MATHEWS (2012) [facility] [address] [place] [address] MCHC (RBC) [Mass/Vol] 33.3 g/dL Normal 30.7-35.5 [facility] Comment on above: Performed By: #### 4 [id number], [id number] #### TERA MATHEWS (2012) [facility] [address] [place] [address] MCV (RBC) [Entitic vol] 93.3 fL Normal 80.2-99 [facility] Comment on above: Performed By: #### 4 [id number], [id number] #### TERA MATHEWS (2012) [facility] [address] [place] [address] Monocytes/100 WBC (Bld) 6.9 % Normal [facility] Comment on above: Performed By: #### 4 [id number], [id number] #### TERA MATHEWS (2012) [facility] [address] [place] [address] Neutrophils/100 WBC (Bld) 48.8 % Normal [facility] Comment on above: Performed By: #### 4 [id number], [id number] #### TERA MATHEWS (2012) [facility] [address] [place] [address] PLATELET COUNT 264 x10*3/uL Normal 150-400 [facility] Comment on above: Performed By: #### 4 [id number], [id number] #### TERA MATHEWS (2012) [facility] [address] [place] [address] RED BLOOD CELL COUNT 4.31 x10*6/uL Normal 3.60-5.20 [facility] Comment on above: Performed By: #### 4 [id number], [id number] #### TERA MATHEWS (2012) [facility] [address] [place] [address] WHITE BLOOD CELLS 6.3 x10*3/uL Normal 4.3-10.3 [facility] Comment on above: Performed By: #### 4 [id number], [id number] #### TERA MATHEWS (2013) [facility] [address] [place] [address] CBC with DifferentialOrdered By: Background Lab on 11-23-2022 Absolute Immature Granulocytes 0.0 [facility] Age [Time] 93.3 fL 80.2 - 99 fL [facility] Age [Time] 31.1 pg 27.5 - 32.3 pg [facility] Age [Time] 33.3 g/dL 30.7 - 35.5 g/dL [facility] B. burgdorferi IgM IB Ql (CSF) 40.0 % [facility] Basophils (Bld) [#/Vol] 0.1 10*3/uL [facility] Basophils/100 WBC (Body fld) 1.0 % [facility] Eosinophils (Bld) [#/Vol] 2.5 10*3/uL [facility] Eosinophils (Bld) [#/Vol] 0.4 10*3/uL [facility] Eosinophils (Bld) [#/Vol] 0.2 10*3/uL [facility] Eosinophils/100 WBC (Bld) 3.3 % [facility] Erythrocyte distribution width (RBC) [Ratio] 12.8 % 11.5 - 14.5 % [facility] Hematocrit (Bld) [Volume fraction] 40.2 % 33.6 - 46.8 % [facility] Hexanoylglycine (U) [Moles/Vol] 13.4 g/dL 11.7 - 15.8 g/dL [facility] Immature granulocytes/100 WBC (Bld) 0.0 % [facility] Monocytes/100 WBC (Bld) 6.9 % [facility] Neurotensin (P) [Mass/Vol] 48.8 % [facility] Neutrophils (Bld) [#/Vol] 3.1 10*3/uL [facility] Platelets (Bld) [#/Vol] 264 10*3/uL [facility] RBC (Bld) [#/Vol] 4.31 10*6/uL [facility] WBC LM Ql (Sput) 6.3 [facility] COMPREHENSIVE METABOLIC PANE Carlos 11-23-2022 Albumin [Mass/Vol] 4.6 g/dL Normal 3.5-5.0 [facility] Comment on above: Performed By: #### 4 [id number], [id number] #### TERA MATHEWS (2012) [facility] [address] [place] [address] ALK PHOS 54 U/L Normal 24-126 [facility] Comment on above: Performed By: #### 4 [id number], [id number] #### TERA MATHEWS (2012) [facility] [address] [place] [address] ALT [Catalytic activity/Vol] 17 U/L Normal 4-35 [facility] Comment on above: Performed By: #### 4 [id number], [id number] #### TERA MATHEWS (2012) [facility] [address] [place] [address] Anion gap [Moles/Vol] 8 mmol/L Normal 8-12 [facility] Comment on above: Performed By: #### 4 [id number], [id number] #### TERA MATHEWS (2012) [facility] [address] [place] [address] AST [Catalytic activity/Vol] 28 U/L Normal 3-47 [facility] Comment on above: Performed By: #### 4 [id number], [id number] #### TERA MATHEWS (2012) [facility] [address] [place] [address] Bilirubin [Mass/Vol] 0.4 mg/dL Normal 0.2-1.6 [facility] Comment on above: Performed By: #### 4 [id number], [id number] #### TERA MATHEWS (2012) [facility] [address] [place] [address] Calcium [Mass/Vol] 10.6 mg/dL High 8.4-10.4 [facility] Comment on above: Performed By: #### 4 [id number], [id number] #### TERA MATHEWS (2012) [facility] [address] [place] [address] Chloride [Moles/Vol] 103 mmol/L Normal 96-109 [facility] Comment on above: Performed By: #### 4 [id number], [id number] #### TERA MATHEWS (2012) [facility] [address] [place] [address] CO2 [Moles/Vol] 30 mmol/L Normal 22-30 [facility] Comment on above: Performed By: #### 4 [id number], [id number] #### TERA MATHEWS (2012) [facility] [address] [place] [address] Creatinine [Mass/Vol] 0.82 mg/dL Normal 0.52-1.04 [facility] Comment on above: Performed By: #### Norah [id number], [id number] #### TERA MATHEWS (2012) [facility] [address] [place] [address] GLOMERULAR FILTRATION RATE ML/MIN/1.73 SQ M.PREDICTED >90.0 Normal >=60.0 [facility] Comment on above: Result Comment: eGFR calculation based on the Chronic Kidney Disease Epidemiology Collaboration (CKD-EPI) equation refit without adjustment for race. Categories in Chronic Kidney Disease (CKD) Category: GFR(mL/min/1.73m^2) Interpretation: G1* 90 or greater Normal or high G2* 60-89 Mild decrease G3a 45-59 Mild to moderate decrease G3b 30-44 Moderate to severe decrease G4 15-29 Severe decrease G5 14 or less Kidney failure *G1&G2: In the absence of evidence of kidney damage, neither GFR category G1 nor G2 fulfill the criteria for CKD Kidney Int Suppl.2013;3:1-150 Performed By: #### 4 [id number], [id number] #### TERA MATHEWS (2012) [facility] [address] [place] [address] Glucose [Mass/Vol] 93 mg/dL Normal 65-100 [facility] Comment on above: Performed By: #### Norah [id number], [id number] #### TERA MATHEWS (2012) [facility] [address] [place] [address] Potassium [Moles/Vol] 3.8 mmol/L Normal 3.6-5.1 [facility] Comment on above: Performed By: #### Norah [id number], [id number] #### TERA MATHEWS (2012) [facility] [address] [facility] [place] [address] Protein [Mass/Vol] 7.9 g/dL Normal 6.3-8.2 [facility] Comment on above: Performed By: #### 4 [id number], [id number] #### TERA MATHEWS (2012) [facility] [address] [facility] [address] Sodium [Moles/Vol] 141 mmol/L Normal 135-147 [facility] Comment on above: Performed By: #### 4 [id number], [id number] #### TERA MATHEWS (2012) [facility] [address] [facility] [place] [address] Urea nitrogen [Mass/Vol] 11 mg/dL Normal 8-26 [facility] Comment on above: Performed By: #### 4 [id number], [id number] #### TERA MATHEWS (2012) [facility] [address] [facility] [place] [address] [place] ABDOMEN PELVIS WITH IV CO NTRASTon 11-23-2022 CT ABDOMEN PELVIS WITH IV CONTRAST CT ABDOMEN PELVIS WITH IV CONTRAST: 11/23/2022 3:25 AM EDT CLINICAL HISTORY: 32 years old Female with Abdominal pain, acute, nonlocalized. TECHNIQUE: Axial CT images through the abdomen and pelvis are obtained after the intravenous administration of contrast. Coronal and sagittal reformations are also obtained. Dose reduction techniques were achieved by using automated exposure control and/or adjustment of mA and/or kV according to patient size and/or use of iterative reconstruction technique. COMPARISON: Pelvic ultrasound 09/26/2022. FINDINGS: The lung bases are clear with no dependent infiltrate or effusion. The liver, gallbladder, spleen, pancreas and bilateral adrenal glands are unremarkable. The bilateral kidneys demonstrate normal enhancement without hydronephrosis. The bilateral ureters demonstrate no gross abnormality or obstruction. The stomach and small bowel are unremarkable. The appendix is visualized without inflammatory change. The colon is unremarkable. The bladder appears unremarkable. There is no evidence of aortic aneurysm present. Inferior vena cava filter is present. No enlarged lymph nodes are seen. No free air or free fluid is seen. The uterus and adnexa are within normal limits. The osseous structures appear unremarkable. IMPRESSION: No acute intra-abdominal inflammatory process identified. Hematuria since yesterday, pelvic and low back pain 20g LAC 100mL [id number] by JCochran Normal [facility] CT Abdomen and Pelvis W cont rast Ava 11-23-2022 No acute intra-abdominal inflammatory process identified. DESTINY CT ABDOMEN PELVIS WI TH IV CONTRAST: 11/23/2022 3:25 AM EDT CLINICAL HISTORY: 32 years old Female with Abdominal pain, acute, nonlocalized. TECHNIQUE: Axial CT images through the abdomen and pelvis are obtained after the intravenous administration of contrast. Coronal and sagittal reformations are also obtained. Dose reduction techniques were achieved by using automated exposure control and/or adjustment of mA and/or kV according to patient size and/or use of iterative reconstruction technique. COMPARISON: Pelvic ultrasound 09/26/2022. FINDINGS: The lung bases are clear with no dependent infiltrate or effusion. The liver, gallbladder, spleen, pancreas and bilateral adrenal glands are unremarkable. The bilateral kidneys demonstrate normal enhancement without hydronephrosis. The bilateral ureters demonstrate no gross abnormality or obstruction. The stomach and small bowel are unremarkable. The appendix is visualized without inflammatory change. The colon is unremarkable. The bladder appears unremarkable. There is no evidence of aortic aneurysm present. Inferior vena cava filter is present. No enlarged lymph nodes are seen. No free air or free fluid is seen. The uterus and adnexa are within normal limits. The osseous structures appear unremarkable. DESTINY Aviva Baez MD - 11/23/2022 CT ABDOMEN PELVIS WITH IV CONTRAST: 11/23/2022 3:25 AM EDT CLINICAL HISTORY: 32 years old Female with Abdominal pain, acute, nonlocalized. TECHNIQUE: Axial CT images through the abdomen and pelvis are obtained after the intravenous administration of contrast. Coronal and sagittal reformations are also obtained. Dose reduction techniques were achieved by using automated exposure control and/or adjustment of mA and/or kV according to patient size and/or use of iterative reconstruction technique. COMPARISON: Pelvic ultrasound 09/26/2022. FINDINGS: The lung bases are clear with no dependent infiltrate or effusion. The liver, gallbladder, spleen, pancreas and bilateral adrenal glands are unremarkable. The bilateral kidneys demonstrate normal enhancement without hydronephrosis. The bilateral ureters demonstrate no gross abnormality or obstruction. The stomach and small bowel are unremarkable. The appendix is visualized without inflammatory change. The colon is unremarkable. The bladder appears unremarkable. There is no evidence of aortic aneurysm present. Inferior vena cava filter is present. No enlarged lymph nodes are seen. No free air or free fluid is seen. The uterus and adnexa are within normal limits. The osseous structures appear unremarkable. IMPRESSION: No acute intra-abdominal inflammatory process identified. [facility] Radiology Study observation (narrative) [facility] CT Abdomen and Pelvis W cont rast IVOrdered By: Aviva Baez on 11-23-2022 [facility] Work Phone: Comprehensive metabolic 2000 panelon 11-23-2022 Albumin (Syn fld) [Mass/Vol] 4.6 g/dL 3.5 - 5.0 g/dL [facility] Aldosterone (U) [Mass/Vol] 54 U/L 24 - 126 U/L [facility] ALT [Catalytic activity/Vol] 17 U/L 4 - 35 U/L [facility] Anion gap [Moles/Vol] 8 mmol/L 8 - 12 mmol/L [facility] AST [Catalytic activity/Vol] 28 U/L 3 - 47 U/L [facility] Bilirubin [Mass/Vol] 0.4 mg/dL 0.2 - 1 .6 mg/dL [facility] Calcium [Mass/Vol] 10.6 mg/dL High 8.4 - 10. 4 mg/dL [facility] Calcium hydrogen phosphate dihydrate crystals LM Ql (Urine sed) 11 mg/dL 8 - 26 mg/dL [facility] Chloride [Moles/Vol] 103 mmol/L 96 - 10 9 mmol/L [facility] CMV IgM IF Ql 30 mmol/L 22 - 30 mmol/L [facility] Creatinine [Mass/Vol] 0.82 mg/dL 0.52 - 1.04 mg/dL [facility] GFR/1.73 sq M.predicted MDRD (S/P/Bld) [Vol rate/Area] - PINF [facility] Comment on above: eGFR calculation bas ed on the Chronic Kidney Disease Epidemiology Collaboration (CKD-EPI) equation refit without adjustment for race. Categories in Chronic Kidney Disease (CKD) Category: GFR(mL/min/1.73m^2) Interpretation: G1* 90 or greater Normal or high G2* 60-89 Mild decrease G3a 45-59 Mild to moderate decrease G3b 30-44 Moderate to severe decrease G4 15-29 Severe decrease G5 14 or less Kidney failure *G1&G2: In the absence of evidence of kidney damage, neither GFR category G1 nor G2 fulfill the criteria for CKD Kidney Int Suppl.2013;3:1-150 Glucose [Mass/Vol] 93 mg/dL 65 - 100 mg/dL [facility] Interpretation and review of laboratory results Abnormal [facility] Potassium [Moles/Vol] 3.8 mmol/L 3.6 - 5.1 mmol/L [facility] Protein [Mass/Vol] 7.9 g/dL 6.3 - 8.2 g/dL [facility] Sodium [Moles/Vol] 141 mmol/L 135 - 147 mmol/L [facility] LACTATEon 11-23-2022 Lactate [Moles/Vol] 0.7 mmol/L Normal 0.7-2.0 [facility] Comment on above: Performed By: #### 4 [id number] #### TERA MATHEWS (2012) [facility] [address] [place] [address] LIPASEon 11-23-2022 Lipase [Catalytic activity/Vol] 72 U/L Normal 23-300 [facility] Comment on above: Performed By: #### 4 [id number], [id number] #### TERA MATHEWS (2012) [facility] [address] [place] [address] Lactate - ED and Inpatient: A result >2 mmol/L will create an auto-follow up lactate order to be drawn in 2 hours.on 11-23-2022 Interpretation and review of laboratory results Normal [facility] Lactate [Moles/Vol] 0.7 mmol/L 0.7 - 2. 0 mmol/L [facility] Lipaseon 11-23-2022 Interpretation and review of laboratory results Normal [facility] Lipase [Catalytic activity/Vol] 72 U/L 23 - 300 U/L [facility] No Panel Informationon 11-23 [facility] POCT ED/FC/SURG Urine Pregon 11-23-2022 Beta HCG ( test) Ql (U) Negative [facility] Interpretation and review of laboratory results Normal [facility] Psych Assistant Acceptable YES [facility] URINE CHEM STRIP ONLYon 10-28 Appearance (U) Cloudy Normal [facility] Comment on above: Performed By: #### 4 [id number] #### TERA MATHEWS (2012) [facility] [address] [place] [address] BILIRUBIN UA Negative Normal Negative [facility] Comment on above: Performed By: #### 4 [id number] #### TERA MATHEWS (2012) [facility] [address] [place] [address] Color (U) Dark Yellow Normal [facility] Comment on above: Performed By: #### 4 [id number] #### TERA MATHEWS (2012) [facility] [address] [place] [address] Glucose Ql (U) Negative Normal Negative [facility] Comment on above: Performed By: #### 4 [id number] #### TERA MATHEWS (2012) [facility] [address] [place] [address] Ketones Ql (U) Trace Abnormal Negative [facility] Comment on above: Performed By: #### 4 [id number] #### TERA MATHEWS (2012) [facility] [address] [place] [address] LEUKOESTERASE Moderate Abnormal Negative [facility] Comment on above: Performed By: #### 4 [id number] #### TERA MATHEWS (2012) [facility] [address] [place] [address] Nitrite Ql (U) Negative Normal Negative [facility] Comment on above: Performed By: #### 4 [id number] #### TERA MATHEWS (2012) [facility] [address] [place] [address] OCCULT BLD Moderate Abnormal Negative [facility] Comment on above: Performed By: #### 4 [id number] #### TERA MATHEWS (2012) [facility] [address] [place] [address] PH, URINE 5.5 Normal [facility] Comment on above: Performed By: #### 4 [id number] #### TERA MATHEWS (2012) [facility] [address] [place] [address] Protein Ql (U) Negative Normal Negative [facility] Comment on above: Performed By: #### 4 [id number] #### TERA MATHEWS (2012) [facility] [address] [place] [address] SPECIFIC GRAVITY, URINE 1.020 Normal [facility] Comment on above: Performed By: #### 4 [id number] #### TERA MATHEWS (2012) [facility] [address] [place] [address] UROBILINOGEN UA <2.0 Normal <2.0 [facility] Comment on above: Performed By: #### 4 [id number] #### TERA MATHEWS (2012) [facility] [address] [place] [address] Urine DipOrdered By: Alexia cazares on 11-23-2022 Acetone [Mass/Vol] Trace Abnormal Negative [facility] Appearance (Body fld) Cloudy [facility] Bilirubin Ql (U) Negative Negative [facility] Color (Stone) Dark Yellow [facility] G6PD (RBC) [Catalytic activity/Vol] Negative Negative [facility] Hemoglobin.gastrointes tinal (Stl) [Mass/Mass] Moderate Abnormal Negative [facility] Interpretation and review of laboratory results Abnormal [facility] Leukocyte esterase Test strip Ql (U) Moderate Abnormal Negative [facility] Nitrite Test strip (U) [Mass/Vol] Negative Negative [facility] pH (Gillian fld) 5.5 [facility] Protein (U) [Mass/Vol] Negative Negative [facility] Specific gravity (U) [Rel density] 1.020 [facility] Urobilinogen Qn (U) <2.0 NINF - 2.[address] [facility] GC AND CHLAMYDIA AMPLIFIED P ROBEon 11-16-2022 GC AND CHLAMYDIA AMPLIFIED PROBE GC AMPLIFIED DE Positive Negative CHLAMYDIA, DNA PROBE Negative Negative Normal Negative [facility] Comment on above: Performed By: #### 4 [id number], [id number] #### TERA MATHEWS (2012) [facility] [address] [place] [address] TRICHOMONAS AMPLIFIED PROBEo n 11-16-2022 TRICHOMONAS AMPLIFIED PROBE Negative Normal Negative [facility] Comment on above: Performed By: #### 4 [id number], [id number] #### TERA MATHEWS (2012) [facility] [address] [place] [address] URINALYSIS WITH REFLEX CULTU REon 11-16-2022 Appearance (U) Cloudy Normal [facility] Comment on above: Performed By: #### 4 [id number] #### [address] BILIRUBIN UA Negative Normal Negative [facility] Comment on above: Performed By: #### 4 [id number] #### [address] Color (U) Yellow Normal [facility] Comment on above: Performed By: #### 4 [id number] #### [address] Glucose Ql (U) Negative Normal Negative [facility] Comment on above: Performed By: #### 4 [id number] #### [address] Ketones Ql (U) Negative Normal Negative [facility] Comment on above: Performed By: #### 4 [id number] #### [address] LEUKOESTERASE Large Abnormal Negative [facility] Comment on above: Performed By: #### 4 [id number] #### [address] Nitrite Ql (U) Negative Normal Negative [facility] Comment on above: Performed By: #### 4 [id number] #### [address] OCCULT BLD Moderate Abnormal Negative [facility] Comment on above: Performed By: #### 4 [id number] #### [address] PH, URINE 5.0 Normal [facility] Comment on above: Performed By: #### 4 [id number] #### [address] Protein Ql (U) Negative Normal Negative [facility] Comment on above: Performed By: #### 4 [id number] #### [address] RBC LM.HPF (Urine sed) [#/Area] 3 /[HPF] Normal <=5 [facility] Comment on above: Performed By: #### 4 [id number] #### [address] SPECIFIC GRAVITY, URINE 1.011 Normal [facility] Comment on above: Performed By: #### 4 [id number] #### [address] SQUAMOUS EPI CELLS 7 /LPF Normal [facility] Comment on above: Performed By: #### 4 [id number] #### [address] UROBILINOGEN UA Negative Normal <2.0 [facility] Comment on above: Performed By: #### 4 [id number] #### [address] WBC LM.HPF (Urine sed) [#/Area] 100 /[HPF] High <=5 [facility] Comment on above: Performed By: #### 4 [id number] #### [address] URINE CULTUREon 11-16-2022 Bacteria identified Cx Nom (U) URINE CULTURE, ROUTINE Mixed skin and fecal blanca Normal [facility] Comment on above: Order Comment: >100, 000/mL Performed By: #### 4 [id number], [id number] #### TERA MATHEWS (2013) [facility] [address] [place] [address] GC AND CHLAMYDIA AMPLIFIED P ROBEon 10-20-2022 GC AND CHLAMYDIA AMPLIFIED PROBE GC AMPLIFIED DE Negative Negative CHLAMYDIA, DNA PROBE Positive Negative Abnormal Negative [facility] Comment on above: Performed By: #### 4 [id number] #### [address] URINE CULTUREon 10-20-2022 Bacteria identified Cx Nom (U) URINE CULTURE, ROUTINE 271ESCHERICHIA COLI >100,000/mL Escherichia coli Organism ID: 1 Antibiotic Interpretation SCOUT Status Ampicillin Susc Islt R >=32 F Ampicillin+Sulbac Susc Islt I 16 F ceFAZolin Susc Islt S <=4 F Cefepime Susc Islt S <=1 F cefTRIAXone Susc Islt S <=1 F B-Lactamase Extended Susc Islt - Negative F Gentamicin Susc Islt R >=16 F levoFLOXacin Susc Islt R >=8 F Nitrofurantoin Susc Islt S <=16 F Pip+Tazo Susc Islt S <=4 F Tobramycin Susc Islt I 8 F TMP SMX Susc Islt R >=320 F Resistant [facility] Comment on above: Performed By: #### 4 [id number], [id number] #### TERA MATHEWS (2012) [facility] [address] [place] [address] BETA-HCG QUANTITATIVE SERUM( DO NOT USE FOR TUMOR MARKER, SEE [id number])on 09-26-2022 GONADOTROPIN, CHORIONIC (HCG) QUANT <2.4 Normal See Comment [facility] Comment on above: Result Comment: HCG REFERENCE RANGE: ?Non- female ? ? ?<5 mIU/mL ? Gestational Age (weeks) ? ? ?hCG Mean (mIU/mL) ? ?1-10 ?31,142 ?11-15 ? 55,425 ? ? ?16-22 ? 27,023 ? ? ?23-40 ? 24,031 ? Performed By: #### 4 [id number], [id number] #### TERA MATHEWS (2012) [facility] [address] [place] [address] CBC AND DIFFERENTIALon 09-26 ABSOLUTE BASOPHIL 0.0 x10*3/uL Normal 0.0-0.[address] [facility] Comment on above: Performed By: #### 4 [id number], [id number] #### TERA MATHEWS (2012) [facility] [address] [place] [address] ABSOLUTE EOSINOPHIL 0.1 x10*3/uL Normal 0.1-0.3 [facility] Comment on above: Performed By: #### 4 [id number], [id number] #### TERA MATHEWS (2012) [facility] [address] [place] [address] ABSOLUTE IMMATURE GRANULOCYTES 0.0 x10*3/uL Normal 0.0-0.1 [facility] Comment on above: Performed By: #### 4 [id number], [id number] #### TERA MATHEWS (2012) [facility] [address] [place] [address] ABSOLUTE LYMPH 1.2 x10*3/uL Normal 1.2-3.3 [facility] Comment on above: Performed By: #### 4 [id number], [id number] #### TERA MATHEWS (2012) [facility] [address] [place] [address] ABSOLUTE MONO 0.3 x10*3/uL Normal 0.2-0.6 [facility] Comment on above: Performed By: #### 4 [id number], [id number] #### TERA MATHEWS (2012) [facility] [address] [place] [address] ABSOLUTE NEUTROPHIL 3.0 x10*3/uL Normal 2.4-6.6 [facility] Comment on above: Performed By: #### 4 [id number], [id number] #### TERA MATHEWS (2012) [facility] [address] [place] [address] Basophils/100 WBC (Bld) 0.9 % Normal [facility] Comment on above: Performed By: #### 4 [id number], [id number] #### TERA MATHEWS (2012) [facility] [address] [place] [address] Eosinophils/100 WBC (Bld) 1.5 % Normal [facility] Comment on above: Performed By: #### 4 [id number], [id number] #### TERA MATHEWS (2012) [facility] [address] [place] [address] Erythrocyte distribution width (RBC) [Ratio] 13.9 % Normal 11.5-14.5 [facility] Comment on above: Performed By: #### 4 [id number], [id number] #### TERA MATHEWS (2012) [facility] [address] [place] [address] Hematocrit (Bld) [Volume fraction] 40.3 % Normal 33.6-46.8 [facility] Comment on above: Performed By: #### 4 [id number], [id number] #### TERA MATHEWS (2012) [facility] [address] [place] [address] Hemoglobin (Bld) [Mass/Vol] 13.2 g/dL Normal 11.7-15.8 [facility] Comment on above: Performed By: #### 4 [id number], [id number] #### TERA MATHEWS (2012) [facility] [address] [place] [address] Immature granulocytes/100 WBC (Bld) 0.0 % Normal [facility] Comment on above: Performed By: #### 4 [id number], [id number] #### TERA MATHEWS (2012) [facility] [address] [place] [address] Lymphocytes/100 WBC (Bld) 27.0 % Normal [facility] Comment on above: Performed By: #### 4 [id number], [id number] #### TERA MATHEWS (2012) [facility] [address] [place] [address] MCH (RBC) [Entitic mass] 30.8 pg Normal 27.5-32.3 [facility] Comment on above: Performed By: #### 4 [id number], [id number] #### TERA MATHEWS (2012) [facility] [address] [place] [address] MCHC (RBC) [Mass/Vol] 32.8 g/dL Normal 30.7-35.5 [facility] Comment on above: Performed By: #### 4 [id number], [id number] #### TERA MATHEWS (2012) [facility] [address] [place] [address] MCV (RBC) [Entitic vol] 93.9 fL Normal 80.2-99 [facility] Comment on above: Performed By: #### 4 [id number], [id number] #### TERA MATHEWS (2012) [facility] [address] [place] [address] Monocytes/100 WBC (Bld) 5.5 % Normal [facility] Comment on above: Performed By: #### 4 [id number], [id number] #### TERA MATHEWS (2012) [facility] [address] [facility] [place] [address] Neutrophils/100 WBC (Bld) 65.1 % Normal [facility] Comment on above: Performed By: #### 4 [id number], [id number] #### TERA MATHEWS (2012) [facility] [address] [place] [address] PLATELET COUNT 179 x10*3/uL Normal 150-400 [facility] Comment on above: Performed By: #### 4 [id number], [id number] #### TERA MATHEWS (2012) [facility] [address] [facility] [place] [address] RED BLOOD CELL COUNT 4.29 x10*6/uL Normal 3.60-5.20 [facility] Comment on above: Performed By: #### 4 [id number], [id number] #### TERA MATHEWS (2012) [facility] [address] [facility] [place] [address] WHITE BLOOD CELLS 4.6 x10*3/uL Normal 4.3-10.3 [facility] Comment on above: Performed By: #### 4 [id number], [id number] #### TERA MATHEWS (2012) [facility] [address] [facility] [place] [address] CBC with differentialon 05-0 -2022 Absolute Immature Granulocytes 0.0 [facility] Age [Time] 93.9 fL 80.2 - 99 fL [facility] Age [Time] 30.8 pg 27.5 - 32.3 pg [facility] Age [Time] 32.8 g/dL 30.7 - 35.5 g/dL [facility] B. burgdorferi IgM IB Ql (CSF) 27.0 % [facility] Basophils (Bld) [#/Vol] 0.0 10*3/uL [facility] Basophils/100 WBC (Body fld) 0.9 % [facility] Eosinophils (Bld) [#/Vol] 1.2 10*3/uL [facility] Eosinophils (Bld) [#/Vol] 0.3 10*3/uL [facility] Eosinophils (Bld) [#/Vol] 0.1 10*3/uL [facility] Eosinophils/100 WBC (Bld) 1.5 % [facility] Erythrocyte distribution width (RBC) [Ratio] 13.9 % 11.5 - 14.5 % [facility] Hematocrit (Bld) [Volume fraction] 40.3 % 33.6 - 46.8 % [facility] Hexanoylglycine (U) [Moles/Vol] 13.2 g/dL 11.7 - 15.8 g/dL [facility] Immature granulocytes/100 WBC (Bld) 0.0 % [facility] Monocytes/100 WBC (Bld) 5.5 % [facility] Neurotensin (P) [Mass/Vol] 65.1 % [facility] Neutrophils (Bld) [#/Vol] 3.0 10*3/uL [facility] Platelets (Bld) [#/Vol] 179 10*3/uL [facility] RBC (Bld) [#/Vol] 4.29 10*6/uL [facility] WBC LM Ql (Sput) 4.6 [facility] COMPREHENSIVE METABOLIC PANE Carlos 09-26-2022 Albumin [Mass/Vol] 4.5 g/dL Normal 3.5-5.0 [facility] Comment on above: Performed By: #### 4 [id number], [id number] #### TERA MATHEWS (2012) [facility] [address] [facility] [place] [address] ALK PHOS 43 U/L Normal 24-126 [facility] Comment on above: Performed By: #### 4 [id number], [id number] #### TERA MATHEWS (2012) [facility] [address] [facility] [place] [address] ALT [Catalytic activity/Vol] 17 U/L Normal 4-35 [facility] Comment on above: Performed By: #### 4 [id number], [id number] #### TERA MATHEWS (2012) [facility] [address] [place] [address] Anion gap [Moles/Vol] 9 mmol/L Normal 8-12 [facility] Comment on above: Performed By: #### 4 [id number], [id number] #### TERA MATHEWS (2012) [facility] [address] [facility] [employer] [place] [address] AST [Catalytic activity/Vol] 21 U/L Normal 3-47 [facility] Comment on above: Performed By: #### 4 [id number], [id number] #### TERA MATHEWS (2012) [facility] [address] [place] [address] Bilirubin [Mass/Vol] 0.5 mg/dL Normal 0.2-1.6 [facility] Comment on above: Performed By: #### 4 [id number], [id number] #### TERA MATHEWS (2012) [facility] [address] [place] [address] Calcium [Mass/Vol] 9.6 mg/dL Normal 8.4-10.4 [facility] Comment on above: Performed By: #### 4 [id number], [id number] #### TERA MATHEWS (2012) [facility] [address] [place] [address] Chloride [Moles/Vol] 103 mmol/L Normal 96-109 [facility] Comment on above: Performed By: #### Norah [id number], [id number] #### TERA MATHEWS (2012) [facility] [address] [place] [address] CO2 [Moles/Vol] 26 mmol/L Normal 22-30 [facility] Comment on above: Performed By: #### 4 [id number], [id number] #### TERA MATHEWS (2012) [facility] [address] [place] [address] Creatinine [Mass/Vol] 0.61 mg/dL Normal 0.52-1.04 [facility] Comment on above: Performed By: #### 4 [id number], [id number] #### TERA MATHEWS (2012) [facility] [address] [place] [address] GLOMERULAR FILTRATION RATE ML/MIN/1.73 SQ M.PREDICTED >90.0 Normal >=60.0 [facility] Comment on above: Result Comment: eGFR calculation based on the Chronic Kidney Disease Epidemiology Collaboration (CKD-EPI) equation refit without adjustment for race. Categories in Chronic Kidney Disease (CKD) Category: GFR(mL/min/1.73m^2) Interpretation: G1* 90 or greater Normal or high G2* 60-89 Mild decrease G3a 45-59 Mild to moderate decrease G3b 30-44 Moderate to severe decrease G4 15-29 Severe decrease G5 14 or less Kidney failure *G1&G2: In the absence of evidence of kidney damage, neither GFR category G1 nor G2 fulfill the criteria for CKD Kidney Int Suppl.2013;3:1-150 Performed By: #### 4 [id number], [id number] #### TERA MATHEWS (2012) [facility] [address] [place] [address] Glucose [Mass/Vol] 93 mg/dL Normal 65-100 [facility] Comment on above: Performed By: #### 4 [id number], [id number] #### TERA MATHEWS (2012) [facility] [address] [place] [address] Potassium [Moles/Vol] 3.6 mmol/L Normal 3.6-5.1 [facility] Comment on above: Performed By: #### 4 [id number], [id number] #### TERA MATHEWS (2012) [facility] [address] [place] [address] Protein [Mass/Vol] 7.7 g/dL Normal 6.3-8.2 [facility] Comment on above: Performed By: #### 4 [id number], [id number] #### TERA MATHEWS (2012) [facility] [address] [place] [address] Sodium [Moles/Vol] 138 mmol/L Normal 135-147 [facility] Comment on above: Performed By: #### 4 [id number], [id number] #### TERA MATHEWS (2012) [facility] [address] [place] [address] Urea nitrogen [Mass/Vol] 15 mg/dL Normal 8-26 [facility] Comment on above: Performed By: #### 4 [id number], [id number] #### TERA MATHEWS (2012) [facility] [address] [place] [address] Comprehensive metabolic 2000 panelon 09-26-2022 Albumin (Syn fld) [Mass/Vol] 4.5 g/dL 3.5 - 5.0 g/dL [facility] Aldosterone (U) [Mass/Vol] 43 U/L 24 - 126 U/L [facility] ALT [Catalytic activity/Vol] 17 U/L 4 - 35 U/L [facility] Anion gap [Moles/Vol] 9 mmol/L 8 - 12 mmol/L [facility] AST [Catalytic activity/Vol] 21 U/L 3 - 47 U/L [facility] Bilirubin [Mass/Vol] 0.5 mg/dL 0.2 - 1 .6 mg/dL [facility] Calcium [Mass/Vol] 9.6 mg/dL 8.4 - 10. 4 mg/dL [facility] Calcium hydrogen phosphate dihydrate crystals LM Ql (Urine sed) 15 mg/dL 8 - 26 mg/dL [facility] Chloride [Moles/Vol] 103 mmol/L 96 - 10 9 mmol/L [facility] CMV IgM IF Ql 26 mmol/L 22 - 30 mmol/L [facility] Creatinine [Mass/Vol] 0.61 mg/dL 0.52 - 1.04 mg/dL [facility] GFR/1.73 sq M.predicted MDRD (S/P/Bld) [Vol rate/Area] - PINF [facility] Comment on above: eGFR calculation bas ed on the Chronic Kidney Disease Epidemiology Collaboration (CKD-EPI) equation refit without adjustment for race. Categories in Chronic Kidney Disease (CKD) Category: GFR(mL/min/1.73m^2) Interpretation: G1* 90 or greater Normal or high G2* 60-89 Mild decrease G3a 45-59 Mild to moderate decrease G3b 30-44 Moderate to severe decrease G4 15-29 Severe decrease G5 14 or less Kidney failure *G1&G2: In the absence of evidence of kidney damage, neither GFR category G1 nor G2 fulfill the criteria for CKD Kidney Int Suppl.2013;3:1-150 Glucose [Mass/Vol] 93 mg/dL 65 - 100 mg/dL [facility] Potassium [Moles/Vol] 3.6 mmol/L 3.6 - 5.1 mmol/L [facility] Protein [Mass/Vol] 7.7 g/dL 6.3 - 8.2 g/dL [facility] Sodium [Moles/Vol] 138 mmol/L 135 - 147 mmol/L [facility] HCG Qn (U)Ordered By: Ayleen Mcconnell on 09-26-2022 Beta HCG ( test) Ql (U) Negative [facility] HCG URINE (PREG)on HCG ( test) Ql (U) Negative Normal [facility] Comment on above: Performed By: #### 4 [id number], [id number] #### TERA MATHEWS (2012) [facility] [address] [place] [address] HCG [Moles/Vol]on 09-26-2022 HCG Qn See Comment mIU/mL [facility] Comment on above: HCG REFERENCE RANGE: Non- female <5 mIU/mL Gestational Age (weeks) hCG Mean (mIU/mL) 1-10 31,142 11-15 55,425 16-22 27,023 23-40 24,031 [facility] LIPASEon 09-26-2022 Lipase [Catalytic activity/Vol] 48 U/L Normal 23-300 [facility] Comment on above: Performed By: #### 4 [id number], [id number] #### TERA MATHEWS (2012) [facility] [address] [place] [address] Lipaseon 09-26-2022 Lipase [Catalytic activity/Vol] 48 U/L 23 - 300 U/L [facility] No Panel Informationon 09-26 Interpretation and review of laboratory results Normal [facility] POCT ED/FC/SURG Urine P[place] 09-26-2022 Beta HCG ( test) Ql (U) Negative [facility] Interpretation and review of laboratory results Normal [facility] Psych Assistant Acceptable yes [facility] URINE CHEM STRIP ONLYon Appearance (U) Clear Normal [facility] Comment on above: Performed By: #### 4 [id number], [id number] #### TERA MATHEWS (2012) [facility] [address] [place] [address] BILIRUBIN UA Negative Normal Negative [facility] Comment on above: Performed By: #### 4 [id number], [id number] #### TERA MATHEWS (2012) [facility] [address] [place] [address] Color (U) Light Yellow Normal [facility] Comment on above: Performed By: #### 4 [id number], [id number] #### TERA MATHEWS (2012) [facility] [address] [place] [address] Glucose Ql (U) Negative Normal Negative [facility] Comment on above: Performed By: #### 4 [id number], [id number] #### TERA MATHEWS (2012) [facility] [address] [place] [address] Ketones Ql (U) Negative Normal Negative [facility] Comment on above: Performed By: #### 4 [id number], [id number] #### TERA MATHEWS (2012) [facility] [address] [place] [address] LEUKOESTERASE Negative Normal Negative [facility] Comment on above: Performed By: #### 4 [id number], [id number] #### TERA MATHEWS (2012) [facility] [address] [place] [address] Nitrite Ql (U) Negative Normal Negative [facility] Comment on above: Performed By: #### 4 [id number], [id number] #### TERA MATHEWS (2012) [facility] [address] [place] [address] OCCULT BLD Negative Normal Negative [facility] Comment on above: Performed By: #### 4 [id number], [id number] #### TERA MATHEWS (2012) [facility] [address] [place] [address] PH, URINE 7.0 Normal [facility] Comment on above: Performed By: #### 4 [id number], [id number] #### TERA MATHEWS (2012) [facility] [address] [place] [address] Protein Ql (U) Negative Normal Negative [facility] Comment on above: Performed By: #### 4 [id number], [id number] #### TERA MATHEWS (2012) [facility] [address] [place] [address] SPECIFIC GRAVITY, URINE 1.010 Normal [facility] Comment on above: Performed By: #### 4 [id number], [id number] #### TERA MATHEWS (2012) [facility] [address] [place] [address] UROBILINOGEN UA <2.0 Normal <2.0 [facility] Comment on above: Performed By: #### 4 [id number], [id number] #### TERA MATHEWS (2013) [facility] [address] [place] [address] US Ovary for torsionon 09-26 AGE-APPROPRIATE UTER US AND OVARIES. : DESTINY EXAM: US PELVIS-TORSION STUDY HISTORY: left sided pelvic pain COMPARISON: None. TECHNIQUE: Transabdominal and transvaginal images obtained. FINDINGS: Uterus is 8.5 x 5.5 x 4.9 cm. Endometrium is 7 mm. Ovaries measure 4 x 2 x 2.7 cm on the right and 4 x 2.9 x 1.9 cm on the left. Normal arterial waveforms bilaterally by Doppler interrogation. No dominant ovarian cyst. No pelvic ascites. Roshan Reza MD - 09/26/2022 EXAM: US PELVIS-TORSION STUDY HISTORY: left sided pelvic pain COMPARISON: None. TECHNIQUE: Transabdominal and transvaginal images obtained. FINDINGS: Uterus is 8.5 x 5.5 x 4.9 cm. Endometrium is 7 mm. Ovaries measure 4 x 2 x 2.7 cm on the right and 4 x 2.9 x 1.9 cm on the left. Normal arterial waveforms bilaterally by Doppler interrogation. No dominant ovarian cyst. No pelvic ascites. IMPRESSION: AGE-APPROPRIATE UTERUS AND OVARIES. : [facility] Radiology Study observation (narrative) [facility] US Ovary for torsionOrdered By: Roshan Mary on 09-26-2022 [employer] Work Phone: US PELVIS-TORSION STUDYon US PELVIS-TORSION STUDY EXAM: US PELVIS-TORSION STUDY HISTORY: left sided pelvic pain COMPARISON: None. TECHNIQUE: Transabdominal and transvaginal images obtained. FINDINGS: Uterus is 8.5 x 5.5 x 4.9 cm. Endometrium is 7 mm. Ovaries measure 4 x 2 x 2.7 cm on the right and 4 x 2.9 x 1.9 cm on the left. Normal arterial waveforms bilaterally by Doppler interrogation. No dominant ovarian cyst. No pelvic ascites. IMPRESSION: AGE-APPROPRIATE UTERUS AND OVARIES. : Diagnosis: Tech Notes: pt c/o LLQ pain, + at home preg test, states she is lactating workup in ED all - M2 LMP: 06/12/22 Uterus: appears wnl Endo: 0.7cm, appears wnl Rt Ovary: good flow, appears wnl Lt Ovary: good flow, appears wnl Pt in pain when scanning lt ovary Bilat adnexa appear wnl, no free fluid Order Comments: Ordering Physician: Jeanie Menjivar APRN GROUND TRANSPORTATION OPERATOR Dose: Normal [facility] Urine DipOrdered By: Backgro und Lab on 09-26-2022 Acetone [Mass/Vol] Negative Negative [facility] Appearance (Body fld) Clear [facility] Bilirubin Ql (U) Negative Negative [facility] Color (Stone) Light Yellow [facility] G6PD (RBC) [Catalytic activity/Vol] Negative Negative [facility] Hemoglobin.gastrointes tinal (Stl) [Mass/Mass] Negative Negative [facility] Leukocyte esterase Test strip Ql (U) Negative Negative [facility] Nitrite Test strip (U) [Mass/Vol] Negative Negative [facility] pH (Gillian fld) 7.0 [facility] Protein (U) [Mass/Vol] Negative Negative [facility] Specific gravity (U) [Rel density] 1.010 [facility] Urobilinogen Qn (U) <2.0 NINF - 2.0 [facility] Vitamin D 25 OHon 09-01-2021 Vitamin D 25 OH 19.3 ng/mL Low >29.9 [facility] Comment on above: Result Comment: Reference Range: Vitamin D status Range Deficiency <20 ng/mL Mild Deficiency 20-30 ng/mL Sufficiency 30-100 ng/mL Toxicity >100 ng/mL [facility] [address] [place], [place] [id number] ([phone] Basic Metabolic Panelon Anion gap [Moles/Vol] 8 mmol/L Low 9-15 [facility] Comment on above: Performed By: #### B MP #### [facility] [address] [place] [address] Calcium [Mass/Vol] 9.0 mg/dL Normal 8.5-9.9 [facility] Comment on above: Performed By: #### B MP #### [facility] [address] [place] [address] Chloride [Moles/Vol] 104 mmol/L Normal 95-107 [facility] Comment on above: Performed By: #### B MP #### [facility] [address] [place] [address] CO2 [Moles/Vol] 25 mmol/L Normal 20-31 [facility] Comment on above: Performed By: #### B MP #### [facility] [address] [place] [address] Creatinine [Mass/Vol] 0.59 mg/dL Normal 0.50-0.90 [facility] Comment on above: Performed By: #### B MP #### [facility] [address] [place] [address] GFR >60.0 Normal >60 [facility] Comment on above: Result Comment: >60 mL/min/1.73m2 EGFR, calc. for ages 18 and older using the MDRD formula (not corrected for weight), is valid for stable renal function. Performed By: #### B MP #### [facility] [address] [place] [address] GFR/1.73 sq M.predicted among blacks MDRD (S/P/Bld) [Vol rate/Area] mL/min/{1.73_m2} Normal >60 [facility] Comment on above: Result Comment: >60 mL/min/1.73m2 EGFR, calc. for ages 18 and older using the MDRD formula (not corrected for weight), is valid for stable renal function. Performed By: #### B MP #### [facility] [address] [place] [address] Glucose [Mass/Vol] 88 mg/dL Normal 70-99 [facility] Comment on above: Performed By: #### B MP #### [facility] [address] [place] [address] Potassium [Moles/Vol] 4.1 mmol/L Normal 3.4-4.9 [facility] Comment on above: Performed By: #### B MP #### [facility] [address] [place] [address] Sodium [Moles/Vol] 137 mmol/L Normal 135-144 [facility] Comment on above: Performed By: #### B MP #### [facility] [address] [place] [address] Urea nitrogen [Mass/Vol] 14 mg/dL Normal 6-20 [facility] Comment on above: Performed By: #### B MP #### [facility] [address] [place] [address] CBC With Platelet No Differe ntialon 08-31-2021 Erythrocyte distribution width (RBC) [Ratio] 19.2 % Critically high 11.5-14.5 [facility] Comment on above: Performed By: #### C BCND #### [facility] [address] [place] [address] Hematocrit (Bld) [Volume fraction] 33.4 % Low 37.0-47.0 [facility] Comment on above: Performed By: #### C BCND #### [facility] [address] [place] [address] Hemoglobin (Bld) [Mass/Vol] 10.7 g/dL Low 12.0-16.0 [facility] Comment on above: Performed By: #### C BCND #### [facility] [address] [place] [address] MCH (RBC) [Entitic mass] 28.8 pg Normal 27.0-31.3 [facility] Comment on above: Performed By: #### C BCND #### [facility] [address] [place] [address] MCHC 32.2 % Low 33.0-37.0 [facility] Comment on above: Performed By: #### C BCND #### [facility] [address] [place] [address] MCV (RBC) [Entitic vol] 89.5 fL Normal 82.0-100.0 [facility] Comment on above: Performed By: #### C BCND #### [facility] [address] [place] [address] Platelets (Bld) [#/Vol] 264 10*3/uL Normal 130-400 [facility] Comment on above: Performed By: #### C BCND #### [facility] [address] [place] [address] RBC (Bld) [#/Vol] 3.73 10*6/uL Low 4.20-5.40 [facility] Comment on above: Performed By: #### C BCND #### [facility] [address] [place] [address] WBC (Bld) [#/Vol] 4.9 10*3/uL Normal 4.8-10.8 [facility] Comment on above: Performed By: #### C BCND #### [facility] [address] [place] [address] Lipid Panelon 08-31-2021 Cholesterol [Mass/Vol] 219 mg/dL Critically high 0-199 [facility] Comment on above: Result Comment: ATP III Cholesterol Classification is Borderline High. Performed By: #### L IPID #### [facility] [address] [place] [address] Cholesterol in HDL [Mass/Vol] 69 mg/dL Critically high 40-59 [facility] Comment on above: Result Comment: ATP III HDL Cholesterol Classification is high. Expected Values: Males: >55 = No Risk 35-55 = Moderate Risk <35 = High Risk Females: >65 = No Risk 45-65 = Moderate Risk <45 = High Risk NCEP Guidelines: Third Report September 2000 >59 = negative risk factor for CHD <40 = major risk factor for CHD Performed By: #### L IPID #### [facility] [address] [place] [address] Cholesterol in LDL [Mass/Vol] 132 mg/dL Critically high 0-129 [facility] Comment on above: Result Comment: ATT III Classification is Borderline High. Performed By: #### L IPID #### [facility] [address] [place] [address] Triglyceride [Mass/Vol] 92 mg/dL Normal 0-150 [facility] Comment on above: Result Comment: ATP III Triglycerides Classification is Normal. Performed By: #### L IPID #### [facility] [address] [place] [address] Meyer Levelon 08-31-2021 Meyer [Moles/Vol] 0.6 mmol/L Normal 0.6-1.2 [facility] Comment on above: Performed By: #### L ITH #### [facility] [address] [place] [address] TSH w/out Reflexon TSH w/out Reflex 2.710 uIU/mL Normal 0.440-3.86 [facility] Comment on above: Performed By: #### T SH #### [facility] [address] [place] [address] CBC with Diffon 08-26-2021 Abs. Basophil 0.07 k/uL Normal 0.00-0.20 [facility] Comment on above: Performed By: #### U HCG, UAX, UMICAO #### [facility] [address] [place] [address] Washer [employer] Capper Machine Operator: Tami Villanueva MD Abs.Imm.Granulocyte <0.03 Normal 0.00-0.30 [facility] Comment on above: Performed By: #### U HCG, UAX, UMICAO #### [facility] [address] [place] [address] [employer]apper Machine Operator: Tami Villanueva MD Abs.Neutrophil (Seg) 4.50 k/uL Normal 1.50-8.10 [facility] Comment on above: Performed By: #### U HCG, UAX, UMICAO #### [facility] [address] [place] [address] [employer]apper Machine Operator: Tami Villanueva MD Basophils/100 WBC (Bld) 1 % Normal 0-2 [facility] Comment on above: Performed By: #### U HCG, UAX, UMICAO #### [facility] [address] [place] [address] [employer] Capper Machine Operator: Tami Villanueva MD Eosinophils (Bld) [#/Vol] 0.14 10*3/uL Normal 0.00-0.44 [facility] Comment on above: Performed By: #### U HCG, UAX, UMICAO #### [facility] [address] [place], [facility]83 [employer] Machine Operator: Tami Villanueva MD Eosinophils/100 WBC (Bld) 2 % Normal 1-4 [facility] Comment on above: Performed By: #### U HCG, UAX, UMICAO #### [address] [place], [facility]83 [employer] Machine Operator: Tami Villanueva MD Erythrocyte distribution width (RBC) [Ratio] 18.1 % High 11.8-14.4 [facility] Comment on above: Performed By: #### U HCG, UAX, UMICAO #### [address] [place], [facility]83 [employer] Machine Operator: Tami Villanueva MD Hematocrit (Bld) [Volume fraction] 36.8 % Normal 36.3-47.1 [facility] Comment on above: Performed By: #### U HCG, UAX, UMICAO #### [facility] [address] [place], [facility]83 [employer] Machine Operator: Tami Villanueva MD Hemoglobin (Bld) [Mass/Vol] 11.8 g/dL Low 11.9-15.1 [facility] Comment on above: Performed By: #### U HCG, UAX, UMICAO #### [facility] [address] [place] [address] [employer] Capper Machine Operator: Tami Villanueva MD Immature granulocytes/100 WBC (Bld) 0 % Normal 0 [facility] Comment on above: Performed By: #### U HCG, UAX, UMICAO #### [facility] [address] [place], [place] [id number] [employer]apper Machine Operator: Tami Villanueva MD Lymphocytes (Bld) [#/Vol] 1.40 10*3/uL Normal 1.10-3.70 [facility] Comment on above: Performed By: #### U HCG, UAX, UMICAO #### [facility] [address] [place], [facility]83 [employer] Machine Operator: Tami Villanueva MD Lymphocytes/100 WBC (Bld) 22 % Low 24-43 [facility] Comment on above: Performed By: #### U HCG, UAX, UMICAO #### [address] [place], [facility]83 [employer] Machine Operator: Tami Villanueva MD MCH (RBC) [Entitic mass] 28.4 pg Normal 25.2-33.5 [facility] Comment on above: Performed By: #### U HCG, UAX, UMICAO #### [address] [place], [facility]83 [employer] Machine Operator: Tami Villanueva MD MCHC (RBC) [Mass/Vol] 32.1 g/dL Normal 28.4-34.8 [facility] Comment on above: Performed By: #### U HCG, UAX, UMICAO #### [facility] [address] [place], [facility]83 [employer] Machine Operator: Tami Villanueva MD MCV (RBC) [Entitic vol] 88.7 fL Normal 82.6-102.9 [facility] Comment on above: Performed By: #### U HCG, UAX, UMICAO #### [facility] [address] [place] [address] Washer [employer] Capper Machine Operator: Tami Villanueva MD Monocytes (Bld) [#/Vol] 0.29 10*3/uL Normal 0.10-1.20 [facility] Comment on above: Performed By: #### U HCG, UAX, UMICAO #### [facility] [address] [place], [place] [id number] [employer] Capper Machine Operator: Tami Villanueva MD Monocytes/100 WBC (Bld) 5 % Normal 3-12 [facility] Comment on above: Performed By: #### U HCG, UAX, UMICAO #### [facility] [address] [place] [address] Washer [employer] Capper Machine Operator: Tami Villanueva MD Neutrophil (Seg) 70 % High 36-65 [facility] Comment on above: Performed By: #### U HCG, UAX, UMICAO #### [facility] [address] [place], [place] [id number] [employer]apper Machine Operator: Tami Villanueva MD NRBC Automated 0.0 per 100 WBC Normal 0.0 [facility] Comment on above: Performed By: #### U HCG, UAX, UMICAO #### [facility] [address] [place], [place] [id number] [employer] Machine Operator: Tami Villanueva MD Platelet mean volume (Bld) [Entitic vol] 10.1 fL Normal 8.1-13.5 [facility] Comment on above: Performed By: #### U HCG, UAX, UMICAO #### [facility] [address] [place], [place] [id number] [employer] Machine Operator: Tami Villanueva MD Platelets (Bld) [#/Vol] 366 10*3/uL Normal 138-453 [facility] Comment on above: Performed By: #### U HCG, UAX, UMICAO #### [facility] [address] [place], [place] [id number] [employer] Machine Operator: Tami Villanueva MD RBC (Bld) [#/Vol] 4.15 10*6/uL Normal 3.95-5.11 [facility] Comment on above: Performed By: #### U HCG, UAX, UMICAO #### [facility] [address] [place] [address] [employer] Capper Machine Operator: Tami Villanueva MD WBC (Bld) [#/Vol] 6.4 10*3/uL Normal 3.5-11.3 [facility] Comment on above: Performed By: #### U HCG, UAX, UMICAO #### [facility] [address] [place] [address] [employer] Capper Machine Operator: Tami Villanueva MD Comp Metabolic Profon 2021 (cont.) Normal [facility] Comment on above: Result Comment: Aver age GFR for 30-39 years old: 107 mL/min/1.73sq m Chronic Kidney Disease: <60 mL/min/1.73sq m Kidney failure: <15 mL/min/1.73sq m eGFR calculated using average adult body mass. Additional eGFR calculator available at: http://www.[employer].Leho/multiple_crcl_2011.htm Performed By: #### U HCG, UAX, UMICAO #### [facility] [address] [place] [address] [employer] Capper Machine Operator: Tami Villanueva MD Albumin [Mass/Vol] 4.5 g/dL Normal 3.5-5.2 [facility] Comment on above: Performed By: #### U HCG, UAX, UMICAO #### [facility] [address] [place] [address] [employer] Capper Machine Operator: Tami Villanueva MD Albumin/Glob Ratio 1.7 Normal 1.0-2.5 [facility] Comment on above: Performed By: #### U HCG, UAX, UMICAO #### [facility] [address] [place] [address] [employer] Capper Machine Operator: Tami Villanueva MD Alkaline Phos 57 U/L Normal 35-104 [facility] Comment on above: Performed By: #### U HCG, UAX, UMICAO #### [facility] [address] [place], [place] [id number] [employer] Machine Operator: Tami Villanueva MD ALT [Catalytic activity/Vol] 31 U/L Normal 5-33 [facility] Comment on above: Performed By: #### U HCG, UAX, UMICAO #### [facility] [address] [place], [place] [address] [employer] C[employer] Machine Operator: Tami Villanueva MD Anion gap [Moles/Vol] 10 mmol/L Normal 9-17 [facility] Comment on above: Performed By: #### U HCG, UAX, UMICAO #### [facility] [address] [place], [place] [id number] [employer] Capper Machine Operator: Tami Villanueva MD AST [Catalytic activity/Vol] 22 U/L Normal <32 [facility] Comment on above: Performed By: #### U HCG, UAX, UMICAO #### [facility] [address] [place], [place] [address] [employer] Machine Operator: Tami Villanueva MD Bilirubin [Mass/Vol] 0.16 mg/dL Low 0.3-1.2 [facility] Comment on above: Performed By: #### U HCG, UAX, UMICAO #### [facility] [address] [place], [place] [id number] [employer] Machine Operator: Tami Villanueva MD BUN/CRE Ratio 31 High 9-20 [facility] Comment on above: Performed By: #### U HCG, UAX, UMICAO #### [facility] [address] [place] [address] Was[employer] Capper Machine Operator: Tami Villanueva MD Calcium [Mass/Vol] 9.6 mg/dL Normal 8.6-10.4 [facility] Comment on above: Performed By: #### U HCG, UAX, UMICAO #### [facility] [address] [place], [place] [phone] [employer] Machine Operator: Tmai Villanueva MD Chloride [Moles/Vol] 103 mmol/L Normal 98-107 [facility] Comment on above: Performed By: #### U HCG, UAX, UMICAO #### [facility] [address] [place], [facility]83 [employer] Machine Operator: Tami Villanueva MD CO2 [Moles/Vol] 26 mmol/L Normal 20-31 [facility] Comment on above: Performed By: #### U HCG, UAX, UMICAO #### [facility] [address] [place], [facility]83 [employer] Machine Operator: Tami Villanueva MD Creatinine [Mass/Vol] 0.58 mg/dL Normal 0.50-0.90 [facility] Comment on above: Performed By: #### U HCG, UAX, UMICAO #### [facility] [address] [place], [facility]83 [employer] Machine Operator: Tami Villanueva MD GFR, Amer >60 Normal >60 [facility] Comment on above: Performed By: #### U HCG, UAX, UMICAO #### [facility] [address] [place], [facility]83 [employer] Machine Operator: Tami Villanueva MD GFR,non Amer >60 Normal >60 [facility] Comment on above: Performed By: #### U HCG, UAX, UMICAO #### [facility] [address] [place] [address] Was[employer] Capper Machine Operator: Tami Villanueva MD Glucose [Mass/Vol] 96 mg/dL Normal 70-99 [facility] Comment on above: Performed By: #### U HCG, UAX, UMICAO #### [facility] [address] [place] [address] Was[employer] Capper Machine Operator: Tami Villanueva MD Potassium [Moles/Vol] 3.2 mmol/L Low 3.7-5.3 [facility] Comment on above: Performed By: #### U HCG, UAX, UMICAO #### [address] [place] [address] [employer] Capper Machine Operator: Tami Villanueva MD Protein [Mass/Vol] 7.2 g/dL Normal 6.4-8.3 [facility] Comment on above: Performed By: #### U HCG, UAX, UMICAO #### [address] [place] [address] [employer] Capper Machine Operator: Tami Villanueva MD Sodium [Moles/Vol] 139 mmol/L Normal 135-144 [facility] Comment on above: Performed By: #### U HCG, UAX, UMICAO #### [address] [place] [address] [employer] Capper Machine Operator: Tami Villanueva MD Staging: Normal [facility] Comment on above: Result Comment: Stag e 1: Some kidney damage normal GFR Stage 2: Mild kidney damage GFR 60-89 Stage 3: Moderate kidney damage GFR 30-59 Stage 4: Severe kidney damage GFR 15-29 Stage 5: Severe kidney damage GFR <15 ESRD - chronic treatment by dialysis or transplant Performed By: #### U HCG, UAX, UMICAO #### [address] [place] [address] [employer] Capper Machine Operator: Tami Villanueva MD Urea nitrogen [Mass/Vol] 18 mg/dL Normal 6-20 [facility] Comment on above: Performed By: #### U HCG, UAX, UMICAO #### [address] [place] [address] [employer] Capper Machine Operator: Tami Villanueva MD Drug Scr, Abuse, Uron 2021 Amphetamine(s),Ur Negative Normal [facility] Comment on above: Performed By: #### U HCG, UAX, UMICAO #### [facility] [address] [place], [place] [phone] [employer] Machine Operator: Tami Villanueva MD Barbiturate(s),Ur Negative Normal [facility] Comment on above: Performed By: #### U HCG, UAX, UMICAO #### [facility] [address] [place], [place] [phone] [employer]apper Machine Operator: Tami Villanueva MD Benzodiazepine(s) Negative Normal [facility] Comment on above: Performed By: #### U HCG, UAX, UMICAO #### [facility] [address] [place], [place] [phone] [employer] Capper Machine Operator: Tami Villanueva MD Buprenorphrine, Ur Negative Normal NEG [facility] Comment on above: Performed By: #### U HCG, UAX, UMICAO #### [facility] [address] [place], [place] [phone] [employer] Machine Operator: Tami Villanueva MD Cannabinoid(s),Ur Positive Abnormal NE[facility] Comment on above: Performed By: #### U HCG, UAX, UMICAO #### [facility] [address] [place] [address] [employer] Machine Operator: Tami Villanueva MD Cocaine Metabolite Negative Normal NEG [facility] Comment on above: Performed By: #### U HCG, UAX, UMICAO #### [facility] [address] [place], [place] [phone] [employer] Machine Operator: Tami Villanueva MD Methadone Ql (U) Negative Normal NEG [facility] Comment on above: Performed By: #### U HCG, UAX, UMICAO #### [facility] [address] [place], [place] [phone] Was[employer] Capper Machine Operator: Tami Villanueva MD Methamphetamine, Ur Negative Normal NEG [facility] Comment on above: Performed By: #### U HCG, UAX, UMICAO #### [facility] [address] [place], [place] [address]115483 Was[employer] Capper Machine Operator: Tami Villanueva MD Opiate(s), Ur Negative Normal NEG [facility] Comment on above: Performed By: #### U HCG, UAX, UMICAO #### [facility] [address] [place] [address] Dr[address] [place], [place] [phone] [employer] Machine Operator: Tami Villanueva MD Oxycodone, Urine Negative Normal NEG [facility] Comment on above: Performed By: #### U HCG, UAX, UMICAO #### [facility] [address] [place] [address] Dr[address] [place], [place] [phone] [employer] Machine Operator: Tami Villanueva MD Phencyclidine, Ur Negative Normal NEG [facility] Comment on above: Performed By: #### U HCG, UAX, UMICAO #### [facility] [address] [place] [address] Dr. [place], [place] [phone] [employer] C[employer] Machine Operator: Tami Villanueva MD Propoxyphene,Urine Negative Normal [facility] Comment on above: Performed By: #### U HCG, UAX, UMICAO #### [facility] [address] [place] [address] Dr[address] [place], [place] [phone] [employer] Machine Operator: Tami Villanueva MD Tricyclic antidepressants Screen Ql (U) Negative [facility] Comment on above: Result Comment: Drug screen results are to be used for medical purposes only. All positive results are unconfirmed. Testing for employment or legal uses should be sent to a reference laboratory for confirmation. Performed By: #### U HCG, UAX, UMICAO #### [facility] [address] [place], [place] [phone] [employer] Machine Operator: Tami Villanueva MD Ethanol Alcoholon 08-26-2021 Ethanol [Mass/Vol] mg/dL Normal <10 [facility] Comment on above: Performed By: #### A LCB #### [facility] [address] [place] [address] [employer] Machine Operator: Tami Villanueva MD Ethanol percent <0.010 Normal <0.010 [facility] Comment on above: Performed By: #### A LCB #### [facility] [address] [place] [address] Was[employer] Capper Machine Operator: Tami Villanueva MD HCG Screen, Bloodon 08-27-19 HCG Screen, Blood Negative Normal NEG [facility] Comment on above: Result Comment: Spec imens with hCG levels near the threshold of the test (25 mIU/mL) may give a negative or indeterminate result. In such cases, another test should be performed with a new specimen in 48-72 hours. If early is suspected clinically in this setting, correlation with quantitative serum b-hCG level is suggested. [facility] has confirmed the use of plasma for this test. This has not been cleared or approved by the [place]. Food and Drug Administration. The FDA has determined that such clearance is not necessary. Performed By: #### U HCG, UAX, UMICAO #### [facility] [address] [place] [address] [employer] C[employer] Machine Operator: Tami Villanueva MD [id number] 08-26-2021 SARS-CoV-2 (COVID-19) RNA AMARA+probe Ql (Unsp spec) Not detected Normal NOTDET [facility] Comment on above: Result Comment: Rapid NAAT: The specimen is NEGATIVE for SARS-CoV-2, the novel coronavirus associated with COVID-19. The ID NOW COVID-19 assay is designed to detect the virus that causes COVID-19 in patients with signs and symptoms of infection who are suspected of COVID-19. An individual without symptoms of COVID-19 and who is not shedding SARS-CoV-2 virus would expect to have a negative (not detected) result in this assay. Negative results should be treated as presumptive and, if inconsistent with clinical signs and symptoms or necessary for patient management, should be tested with an alternative molecular assay. Negative results do not preclude SARS-CoV-2 infection and should not be used as the sole basis for patient management decisions. Fact sheet for Healthcare Providers: https://www.fda.gov/media/275656/download Fact sheet for Patients: https://www.fda.gov/media/426538/download Methodology: Isothermal Nucleic Acid Amplification Performed By: #### U HCG, UAX, UMICAO #### [facility] [address] [place] [address] Dr. [place], [facility]83 [employer] Operator: Tami Villanueva MD UA w/Reflex Cultureon 2021 Bilirubin, SemiQt,Ur Negative Normal NEG [facility] Comment on above: Performed By: #### U HCG, UAX, UMICAO #### [address] [place], [place] [phone] [employer] Operator: Tami Villanueva MD Blood, Urine Negative Normal NEG [facility] Comment on above: Performed By: #### U HCG, UAX, UMICAO #### [address] [place], [place] [phone] [employer] Operator: Tami Villanueva MD Clarity (U) Clear Normal CLEAR [facility] Comment on above: Performed By: #### U HCG, UAX, UMICAO #### [address] [place] [address] [employer] Operator: Tami Villanueva MD Color (U) Yellow Normal YEL [facility] Comment on above: Performed By: #### U HCG, UAX, UMICAO #### [facility] [address] [place] [address] Dr. [place]endez, [place] [phone] [employer] Operator: Tami Villanueva MD Glucose Ql (U) Negative Normal NEG [facility] Comment on above: Performed By: #### U HCG, UAX, UMICAO #### [address] [place], [place] [phone] [employer] Operator: Tami Villanueva MD Ketones Ql (U) Negative Normal NEG [facility] Comment on above: Performed By: #### U HCG, UAX, UMICAO #### [facility] [address] [place] [address] Dr. [place]endez, [place] [phone] [employer] Operator: Tami Villanueva MD Leukocyte esterase Test strip Ql (U) TRACE Abnormal NEG [facility] Comment on above: Performed By: #### U HCG, UAX, UMICAO #### [facility] [address] [place] [address] Dr. [place]endez, [place] [phone] [employer] Operator: Tami Villanueva MD Nitrite,Ur Negative Normal NEG [facility] Comment on above: Performed By: #### U HCG, UAX, UMICAO #### [facility] [address] [place] [address] Dr. [place]endez, [place] [phone] [employer] Operator: Tami Villanueva MD PH,Ur 6.0 Normal 5.0-9.0 [facility] Comment on above: Performed By: #### U HCG, UAX, UMICAO #### [facility] [address] [place] [address] Dr. [place]endez, [place] [address] [employer] Operator: Tami Villanueva MD Protein Ql (U) Negative Normal NEG [facility] Comment on above: Performed By: #### U HCG, UAX, UMICAO #### [facility] [address] [place] [address] Dr. Mendez, [facility]83 [employer] Operator: Tami Villanueva MD Spec. [place],Ur 1.015 Normal 1.010-1.020 [facility] Comment on above: Performed By: #### U HCG, UAX, UMICAO #### [address] [place], [place] [phone] [employer] Operator: Tami Villanueva MD Urobilinogen,Ur Normal Normal NORM [facility] Comment on above: Performed By: #### U HCG, UAX, UMICAO #### [facility] [address] [place], [place] [phone] [employer] Operator: Tami Villanueva MD Urinalysis,Microon 2 ----- Normal [facility] Comment on above: Performed By: #### U HCG, UAX, UMICAO #### [facility] [address] [place], [place] [phone] [employer] Operator: Tami Villanueva MD Epithelial cells LM Ql (Urine sed) 0 TO 2 Normal 0-25 [facility] Comment on above: Performed By: #### U HCG, UAX, UMICAO #### [facility] [address] [place], [place] [phone] [employer] Operator: Tami Villanueva MD Urine RBC's 0 TO 2 Normal 0-2 [facility] Comment on above: Performed By: #### U HCG, UAX, UMICAO #### [facility] [address] [place] [address] Dr. [place]endez, [place] [phone] [employer] Operator: Tami Villnaueva MD Urine WBC's 2 TO 5 Normal 0-5 [facility] Comment on above: Performed By: #### U HCG, UAX, UMICAO #### [facility] [address] [place] [address] Dr. [place]endez, [place] [phone] [employer] Operator: Tami Villanueva MD CBCon 08-16-2021 Erythrocyte distribution width (RBC) [Ratio] 17.7 % High 11.8-14.4 [facility] Comment on above: Performed By: #### U HCG, UAX, UMICAO #### [facility] [address] [place] [address] [employer] Operator: Tami Villanueva MD Hematocrit (Bld) [Volume fraction] 37.7 % Normal 36.3-47.1 [facility] Comment on above: Performed By: #### U HCG, UAX, UMICAO #### [facility] [address] [place], [place] [phone] [employer] Operator: Tami Villanueva MD Hemoglobin (Bld) [Mass/Vol] 11.8 g/dL Low 11.9-15.1 [facility] Comment on above: Performed By: #### U HCG, UAX, UMICAO #### [address] [place] [address] [employer] Operator: Tami Villanueva MD MCH (RBC) [Entitic mass] 28.5 pg Normal 25.2-33.5 [facility] Comment on above: Performed By: #### U HCG, UAX, UMICAO #### [address] [place]endez, [facility]83 [employer] Operator: Tami Villanueva MD MCHC (RBC) [Mass/Vol] 31.3 g/dL Normal 28.4-34.8 [facility] Comment on above: Performed By: #### U HCG, UAX, UMICAO #### [address] [place]endez, [facility]83 [employer] Operator: Tami Villanueva MD MCV (RBC) [Entitic vol] 91.1 fL Normal 82.6-102.9 [facility] Comment on above: Performed By: #### U HCG, UAX, UMICAO #### [address] Mendez, [facility]83 [employer] Operator: Tami Villanueva MD NRBC Automated 0.0 per 100 WBC Normal 0.0 [facility] Comment on above: Performed By: #### U HCG, UAX, UMICAO #### [address] [place] [address] [employer] Operator: Tami Villanueva MD Platelet mean volume (Bld) [Entitic vol] 10.6 fL Normal 8.1-13.5 [facility] Comment on above: Performed By: #### U HCG, UAX, UMICAO #### [facility] [address] [place], [place] [phone] [employer] Operator: Tami Villanueva MD Platelets (Bld) [#/Vol] 262 10*3/uL Normal 138-453 [facility] Comment on above: Performed By: #### U HCG, UAX, UMICAO #### [facility] [address] [place], [place] [phone] [employer] Operator: Tami Villanueva MD RBC (Bld) [#/Vol] 4.14 10*6/uL Normal 3.95-5.11 [facility] Comment on above: Performed By: #### U HCG, UAX, UMICAO #### [facility] [address] [place], [place] [phone] [employer] Operator: Tami Villanueva MD WBC (Bld) [#/Vol] 5.7 10*3/uL Normal 3.5-11.3 [facility] Comment on above: Performed By: #### U HCG, UAX, UMICAO #### [facility] [address] [place], [place] 2000283 [employer] Operator: Tami Villanueva MD Hematocrit (Bld) [Volume fraction] 37.7 % 36.3 - 47.1 % [facility] Hemoglobin.gastrointes tinal spec 1 Ql (Stl) 11.8 g/dL Low 11.9 - 15.1 g/dL [facility] Interpretation and review of laboratory results Abnormal [facility] MCH (RBC) [Entitic mass] 28.5 pg 25.2 - 33.5 pg [facility] MCHC (RBC) [Mass/Vol] 31.3 g/dL 28.4 - 34.8 g/dL [facility] MCV (RBC) [Entitic vol] 91.1 fL 82.6 - 102.9 fL [facility] NRBC Automated 0.0 0.0 per 100 WBC [facility] Platelet distribution width (Bld) [Ratio] 17.7 % High 11.8 - 14.4 % [facility] Platelet mean volume (Bld) [Entitic vol] 10.6 fL 8.1 - 13.5 fL [facility] Platelets (Bld) [#/Vol] 262 10*3/uL [facility] RBC (Bld) [#/Vol] 4.14 10*6/uL 3.95 - 5.1 1 m/uL [facility] WBC (Bld) [#/Vol] 5.7 10*3/uL [facility] Comp Metabolic Profon 2021 (cont.) Normal [facility] Comment on above: Result Comment: Aver age GFR for 30-39 years old: 107 mL/min/1.73sq m Chronic Kidney Disease: <60 mL/min/1.73sq m Kidney failure: <15 mL/min/1.73sq m eGFR calculated using average adult body mass. Additional eGFR calculator available at: http://www.[employer]/multiple_crcl_2011.htm Performed By: #### U HCG, UAX, UMICAO #### [facility] [address] [place] [address] [employer] Operator: Tami Villanueva MD Albumin [Mass/Vol] 3.7 g/dL Normal 3.5-5.2 [facility] Comment on above: Performed By: #### U HCG, UAX, UMICAO #### [facility] [address] [place] [address] [employer] Operator: Tami Villanueva MD Albumin/Glob Ratio 1.4 Normal 1.0-2.5 [facility] Comment on above: Performed By: #### U HCG, UAX, UMICAO #### [facility] [address] [place] [address] [employer] Operator: Tami Villanueva MD Alkaline Phos 46 U/L Normal 35-104 [facility] Comment on above: Performed By: #### U HCG, UAX, UMICAO #### [facility] [address] [place] [address] [employer] Operator: Tami Villanueva MD ALT [Catalytic activity/Vol] 12 U/L Normal 5-33 [facility] Comment on above: Performed By: #### U HCG, UAX, UMICAO #### [facility] [address] [place], [place] [phone] [employer] Operator: Tami Villanueva MD Anion gap [Moles/Vol] 10 mmol/L Normal 9-17 [facility] Comment on above: Performed By: #### U HCG, UAX, UMICAO #### [facility] [address] [place], [place] [phone] [employer] Operator: Tami Villanueva MD AST [Catalytic activity/Vol] 13 U/L Normal <32 [facility] Comment on above: Performed By: #### U HCG, UAX, UMICAO #### [facility] [address] [place], [place] [phone] [employer] Operator: Tami Villanueva MD Bilirubin [Mass/Vol] mg/dL Low 0.3-1.2 [facility] Comment on above: Performed By: #### U HCG, UAX, UMICAO #### [facility] [address] [place], [place] [phone] [employer] Operator: Tami Villanueva MD BUN/CRE Ratio 25 High 9-20 [facility] Comment on above: Performed By: #### U HCG, UAX, UMICAO #### [facility] [address] [place], [place] 9471283 [employer] Operator: Tami Villanueva MD Calcium [Mass/Vol] 8.9 mg/dL Normal 8.6-10.4 [facility] Comment on above: Performed By: #### U HCG, UAX, UMICAO #### [facility] [address] [place], [place] [phone] [employer] Operator: Tami Villanueva MD Chloride [Moles/Vol] 105 mmol/L Normal 98-107 [facility] Comment on above: Performed By: #### U HCG, UAX, UMICAO #### [facility] [address] [place], [place] [phone] [employer] Operator: Tami Villanueva MD CO2 [Moles/Vol] 23 mmol/L Normal 20-31 [facility] Comment on above: Performed By: #### U HCG, UAX, UMICAO #### [facility] [address] [place], [place] [phone] [employer] Operator: Tami Villanueva MD Creatinine [Mass/Vol] 0.60 mg/dL Normal 0.50-0.90 [facility] Comment on above: Performed By: #### U HCG, UAX, UMICAO #### [facility] [address] [place], [place] [phone] [employer] Operator: Tami Villanueva MD GFR, Amer >60 Normal >60 [facility] Comment on above: Performed By: #### U HCG, UAX, UMICAO #### [facility] [address] [place], [place] [phone] [employer] Operator: Tami Villanueva MD GFR,non Amer >60 Normal >60 [facility] Comment on above: Performed By: #### U HCG, UAX, UMICAO #### [facility] [address] [place], [place] [phone] [employer] Operator: Tami Villanueva MD Glucose [Mass/Vol] 93 mg/dL Normal 70-99 [facility] Comment on above: Performed By: #### U HCG, UAX, UMICAO #### [facility] [address] [place], [place] [phone] [employer] Operator: Tami Villanueva MD Potassium [Moles/Vol] 3.9 mmol/L Normal 3.7-5.3 [facility] Comment on above: Performed By: #### U HCG, UAX, UMICAO #### [facility] [address] [place] [address] [employer] Operator: Tami Villanueva MD Protein [Mass/Vol] 6.3 g/dL Low 6.4-8.3 [facility] Comment on above: Performed By: #### U HCG, UAX, UMICAO #### [facility] [address] [place] [address] [employer] Operator: Tami Villanueva MD Sodium [Moles/Vol] 138 mmol/L Normal 135-144 [facility] Comment on above: Performed By: #### U HCG, UAX, UMICAO #### [facility] [address] [place] [address] [place] [address] [employer] Operator: Tami Villanueva MD Staging: Normal [facility] Comment on above: Result Comment: Stag e 1: Some kidney damage normal GFR Stage 2: Mild kidney damage GFR 60-89 Stage 3: Moderate kidney damage GFR 30-59 Stage 4: Severe kidney damage GFR 15-29 Stage 5: Severe kidney damage GFR <15 ESRD - chronic treatment by dialysis or transplant Performed By: #### U HCG, UAX, UMICAO #### [address] [place] [address] [employer] Operator: Tami Villanueva MD Urea nitrogen [Mass/Vol] 15 mg/dL Normal 6-20 [facility] Comment on above: Performed By: #### U HCG, UAX, UMICAO #### [facility] [address] [place] [address] [employer] Operator: Tami Villanueva MD Comprehensive Metabolic Pane carlos 08-16-2021 Albumin [Mass/Vol] 3.7 g/dL 3.5 - 5.2 g/dL [facility] Albumin/Globulin [Mass ratio] 1.4 {ratio} [facility] ALP (Bld) [Catalytic activity/Vol] 46 U/L 35 - 104 U/L [facility] ALT [Catalytic activity/Vol] 12 U/L 5 - 33 U/L [facility] Anion gap [Moles/Vol] 10 mmol/L 9 - 17 mmol/L [facility] AST [Catalytic activity/Vol] 13 U/L <32 [facility] Bilirubin [Mass/Vol] mg/dL Low 0.3 - 1 .2 mg/dL [facility] Calcium [Mass/Vol] 8.9 mg/dL 8.6 - 10. 4 mg/dL [facility] Chloride [Moles/Vol] 105 mmol/L 98 - 10 7 mmol/L [facility] CO2 [Moles/Vol] 23 mmol/L 20 - 31 mmol/L [facility] Creatinine [Mass/Vol] 0.6 mg/dL 0.50 - 0.90 mg/dL [facility] Free PSA/Total PSA [Mass fraction] 6.3 g/dL Low 6.4 - 8.3 g/dL [facility] GFR >60 >60 mL/min [facility] GFR Non- >60 >60 mL/min [facility] Glucose [Mass/Vol] 93 mg/dL 70 - 99 mg/dL [facility] Interpretation and review of laboratory results Abnormal [facility] Potassium [Moles/Vol] 3.9 mmol/L 3.7 - 5.3 mmol/L [facility] Sodium [Moles/Vol] 138 mmol/L 135 - 144 mmol/L [facility] Urea nitrogen (BldV) [Mass/Vol] 15 mg/dL 6 - 20 mg/dL [facility] Urea nitrogen/Creatinine (Bld) [Mass ratio] 25 High [facility] HIV Ag/Abon 08-16-2021 HIV Ag/Ab Non-Reactive Normal NR [facility] Comment on above: Result Comment: No l aboratory evidence of HIV infection. If acute HIV infection is suspected, consider testing for HIV-1 RNA. Performed By: #### U HCG, UAX, UMICAO #### [facility] [address] [place] [address] [employer] Operator: Tami Villanueva MD HIV Screenon 08-16-2021 HIV Ag[facility]Ab [facility] Comment on above: No laboratory eviden ce of HIV infection. If acute HIV infection is suspected, consider testing for HIV-1 RNA. [facility] Hepatitis Acute Steve 03-21 -2022 Hep A Ab,IgM Non-Reactive Normal [facility] Comment on above: Performed By: #### U HCG, UAX, UMICAO #### [facility] [address] [place] [address] Dr. [place], [place] [phone] [employer] Operator: Tami Villanueva MD Hep B Core Ab,IgM Non-Reactive Normal [facility] Comment on above: Performed By: #### U HCG, UAX, UMICAO #### [facility] [address] [place] [address] Dr. [place], [place] [phone] [employer] Operator: Tami Villanueva MD Hep B Surf Ag Non-Reactive Normal [facility] Comment on above: Performed By: #### U HCG, UAX, UMICAO #### [address] [place], [place] [phone] [employer] Operator: Tami Villanueva MD Hep C Ab Non-Reactive Normal [facility] Comment on above: Result Comment: The hepatitis C procedure used in our laboratory is a Chemiluminescent test specific for three recombinant HCV antigens. A negative anti-HCV result indicates that the antibodies to hepatitis C virus are not present at this time. Individuals with reactive anti-HCV should be considered infected and infectious until proven otherwise. Confirmation of all equivocal or reactive results is recommended by ordering HCV RNA by PCR. Performed By: #### U HCG, UAX, UMICAO #### [address] [place], [place] [phone] [employer] Operator: Tami Villanueva MD Hepatitis Panel, [facility] HAV IgM IA Qn (S) Non-Reactive NONREACTIVE [facility] Hep B Core Ab, IgM Non-Reactive NONREACTIVE [facility] Hepatitis B Surface Ag Non-Reactive NONREACTIVE [facility] Hepatitis C Ab Non-Reactive NONREACTIVE [facility] Comment on above: The hepatitis C procedure used in our laboratory is a Chemiluminescent test specific for three recombinant HCV antigens. A negative anti-HCV result indicates that the antibodies to hepatitis C virus are not present at this time. Individuals with reactive anti-HCV should be considered infected and infectious until proven otherwise. Confirmation of all equivocal or reactive results is recommended by ordering HCV RNA by PCR. [facility] - Chemistry and C hemistry - challengeon 08-16-2021 GFR/1.73 sq M.predicted MDRD (S/P/Bld) [Vol rate/Area] [facility] Comment on above: Average GFR for 30-3 9 years old: 107 mL/min/1.73sq m Chronic Kidney Disease: <60 mL/min/1.73sq m Kidney failure: <15 mL/min/1.73sq m eGFR calculated using average adult body mass. Additional eGFR calculator available at: http://www.[employer]/multiple_crcl_2012.htm Stage 1: Some kidney damage normal GFR Stage 2: Mild kidney damage GFR 60-89 Stage 3: Moderate kidney damage GFR 30-59 Stage 4: Severe kidney damage GFR 15-29 Stage 5: Severe kidney damage GFR <15 ESRD - chronic treatment by dialysis or transplant [facility]sc[facility] Bacteria, UA 2+ Abnormal None [facility] Epithelial Cells UA 5 TO 10 [facility] Interpretation and review of laboratory results Abnormal [facility] RBC (U) [#/Vol] 100 /uL [facility], UA 5 TO 10 [facility] Urinalysison 08-16-2021 Bilirubin Urine INTERPRET WITH CAUTI ON DUE TO INTENSE COLOR OF URINE. Abnormal NEGATIVE [facility] Color, UA Red Abnormal Yellow [facility] Glucose, Ur INTERPRET WITH CAUTI ON DUE TO INTENSE COLOR OF URINE. Abnormal NEGATIVE [facility] [employer] Interpretation and review of laboratory results Abnormal [facility] Ketones Ql (U) INTERPRET WITH CAUTI ON DUE TO INTENSE COLOR OF URINE. Abnormal NEGATIVE [employer] [facility] Leukocyte esterase Test strip Ql (U) INTERPRET WITH CAUTION DUE TO INTENSE COLOR OF URINE. Abnormal NEGATIVE [facility] Nitrite, Urine INTERPRET WITH CAUTI ON DUE TO INTENSE COLOR OF URINE. Abnormal NEGATIVE [facility] pH, UA INTERPRET WITH CAUTI ON DUE TO INTENSE COLOR OF URINE. [facility] Protein, UA INTERPRET WITH CAUTI ON DUE TO INTENSE COLOR OF URINE. Abnormal NEGATIVE [facility] Specific [place], UA 1.025 High [employer] T[employer] UA Turbid Abnormal Clear [facility] Urine Hgb INTERPRET WITH CAUTI ON DUE TO INTENSE COLOR OF URINE. Abnormal NEGATIVE [facility] Urobilinogen, Urine INTERPRET WITH CAUTI ON DUE TO INTENSE COLOR OF URINE. Abnormal Normal [facility] Urinalysis, Routineon 2021 Bilirubin, SemiQt,Ur INTERPRET WITH CAUT ION DUE TO INTENSE COLOR OF URINE. Abnormal NEG [facility] Comment on above: Performed By: #### U HCG, UAX, UMICAO #### [facility] [address] [place] [address] Dr. [place], [place] [phone] [employer] Operator: Tami Villanueva MD Blood, Urine INTERPRET WITH CAUTI ON DUE TO INTENSE COLOR OF URINE. Abnormal NEG [facility] Comment on above: Performed By: #### U HCG, UAX, UMICAO #### [facility] [address] [place] [address] Dr. [place], [place] [phone] [employer] Operator: Tami Villanueva MD Clarity (U) Turbid Abnormal CLEAR [facility] Comment on above: Performed By: #### U HCG, UAX, UMICAO #### [facility] [address] [place] [address] [place] [address] [employer] Operator: Tami Villanueva MD Color (U) Red Abnormal YEL [facility] Comment on above: Performed By: #### U HCG, UAX, UMICAO #### [facility] [address] [place] [address] Dr. [place], [place] [phone] [employer] Operator: Tami Villanueva MD Glucose Ql (U) INTERPRET WITH CAUTI ON DUE TO INTENSE COLOR OF URINE. Abnormal NEG [facility] Comment on above: Performed By: #### U HCG, UAX, UMICAO #### [facility] [address] [place] [address] Dr. [place], [place] [phone] [employer] Operator: Tami Villanueva MD Ketones Ql (U) INTERPRET WITH CAUTI ON DUE TO INTENSE COLOR OF URINE. Abnormal [facility] Comment on above: Performed By: #### U HCG, UAX, UMICAO #### [facility] [address] [place] [address] Dr. [place], [place] [phone] [employer] Operator: Tami Villanueva MD Leukocyte esterase Test strip Ql (U) INTERPRET WITH CAUTION DUE TO INTENSE COLOR OF URINE. Abnormal NEG [facility] Comment on above: Performed By: #### U HCG, UAX, UMICAO #### [facility] [address] [place] [address] [place] [address] [employer] Operator: Tami Villanueva MD Nitrite,Ur INTERPRET WITH CAUTI ON DUE TO INTENSE COLOR OF URINE. Abnormal NEG [facility] Comment on above: Performed By: #### U HCG, UAX, UMICAO #### [facility] [address] [place] [address] [place] [address] [employer] Operator: Tami Villanueva MD PH,Ur INTERPRET WITH CAUTI ON DUE TO INTENSE COLOR OF URINE. Normal 5.0-9.0 [facility] Comment on above: Performed By: #### U HCG, UAX, UMICAO #### [address] [place] [id number] [employer] Operator: Tami Villanueva MD Protein Ql (U) INTERPRET WITH CAUTI ON DUE TO INTENSE COLOR OF URINE. Abnormal NEG [facility] Comment on above: Performed By: #### U HCG, UAX, UMICAO #### [address] [place], [place] [id number] [employer] Operator: Tami Villanueva MD Spec. [place],Ur 1.025 High 1.010-1.020 [facility] Comment on above: Performed By: #### U HCG, UAX, UMICAO #### [facility] [address] [place] [address] [place] [address] [employer] Operator: Tami Villanueva MD Urobilinogen,Ur INTERPRET WITH CAUTI ON DUE TO INTENSE COLOR OF URINE. Abnormal NORM [facility] Comment on above: Performed By: #### U HCG, UAX, UMICAO #### [facility] [address] [place] [address] [place] [address] [employer] Operator: Tami Villanueva MD Urinalysis,Microon 2 ----- Normal [facility] Comment on above: Performed By: #### U HCG, UAX, UMICAO #### [facility] [address] [place] [address] [employer] Operator: Tami Villanueva MD Bacteria 2+ Abnormal NONE [facility] Comment on above: Performed By: #### U HCG, UAX, UMICAO #### [facility] [address] [place] [address] [employer] Operator: Tami Villanueva MD Epithelial cells LM Ql (Urine sed) 5 TO 10 Normal 0-25 [facility] Comment on above: Performed By: #### U HCG, UAX, UMICAO #### [facility] [address] [place] [address] [place] [address] [employer] Operator: aTmi Villanueva MD Urine RBC's GREATER THAN 100 Normal 0-2 [facility] Comment on above: Performed By: #### U HCG, UAX, UMICAO #### [facility] [address] [place] [address] [place] [address] [employer] Operator: Tami Villanueva MD Urine WBC's 5 TO 10 Normal 0-5 [facility] Comment on above: Performed By: #### U HCG, UAX, UMICAO #### [facility] [address] [place] [address] [place] [address] [employer] Operator: Tami Villanueva MD Basic Metabolic Profon 08-10 (cont.) Normal [facility] Comment on above: Result Comment: Aver age GFR for 30-39 years old: 107 mL/min/1.73sq m Chronic Kidney Disease: <60 mL/min/1.73sq m Kidney failure: <15 mL/min/1.73sq m eGFR calculated using average adult body mass. Additional eGFR calculator available at: http://www.[employer].Leho/multiple_crcl_2012.htm Performed By: #### B MP #### [facility] [address] [place] [address] [employer] Operator: Bib Morin DO Anion gap [Moles/Vol] 11 mmol/L Normal 9-17 [facility] Comment on above: Performed By: #### B MP #### [facility] [address] [place] [address] [employer] Operator: Bib Morin DO Calcium [Mass/Vol] 9.3 mg/dL Normal 8.6-10.4 [facility] Comment on above: Performed By: #### B MP #### [facility] [address] [place] [address] [employer] Operator: Bib Morin DO Chloride [Moles/Vol] 103 mmol/L Normal 98-107 [facility] Comment on above: Performed By: #### B MP #### [facility] [address] [place] [address] [employer] Operator: Bib Morin DO CO2 [Moles/Vol] 23 mmol/L Normal 20-31 [facility] Comment on above: Performed By: #### B MP #### [facility] [place] [address] [employer] Operator: Bib Morin DO Creatinine [Mass/Vol] 0.64 mg/dL Normal 0.50-0.90 [facility] Comment on above: Performed By: #### B MP #### [facility] [place] [address] [employer] Operator: Bib Morin DO GFR, Amer >60 Normal >60 [facility] Comment on above: Performed By: #### B MP #### [facility] [address] [place] [address] [employer] Operator: Bib Morin DO GFR,non Amer >60 Normal >60 [facility] Comment on above: Performed By: #### B MP #### [facility] [address] [place] [address] [employer] Operator: Bib Morin DO Glucose [Mass/Vol] 140 mg/dL High 70-99 [facility] Comment on above: Performed By: #### B MP #### [facility] [address] [place] [address] [employer] Operator: Bib Morin DO Potassium [Moles/Vol] 4.3 mmol/L Normal 3.7-5.3 [facility] Comment on above: Performed By: #### B MP #### [facility] [facility] [place] [address] [employer] Operator: Bib Morin DO Sodium [Moles/Vol] 137 mmol/L Normal 135-144 [facility] Comment on above: Performed By: #### B MP #### [facility] [facility] [place] [address] [employer] Operator: Bib Morin DO Urea nitrogen [Mass/Vol] 10 mg/dL Normal 6-20 [facility] Comment on above: Performed By: #### B MP #### [facility] [place] [address] [employer] Operator: Bib Morin DO Comp Metabolic Profon 2021 (cont.) Normal [facility] Comment on above: Result Comment: Aver age GFR for 30-39 years old: 107 mL/min/1.73sq m Chronic Kidney Disease: <60 mL/min/1.73sq m Kidney failure: <15 mL/min/1.73sq m eGFR calculated using average adult body mass. Additional eGFR calculator available at: http://www.[employer].com/multiple_crcl_2011.htm Performed By: #### C P #### [facility] [address] [place] [address] [employer] Operator: Bib Morin DO Albumin [Mass/Vol] 4.1 g/dL Normal 3.5-5.2 [facility] Comment on above: Performed By: #### C P #### [facility] [address] [place] [address] [employer] Operator: Bib Morin DO Alkaline Phos 47 U/L Normal 35-104 [facility] Comment on above: Performed By: #### C P #### [facility] [address] [place] [address] [employer] Operator: Bib Morin DO ALT [Catalytic activity/Vol] 14 U/L Normal 5-33 [facility] Comment on above: Performed By: #### C P #### [facility] [address] [place] [address] [employer] Operator: Bib Morin DO Anion gap [Moles/Vol] 9 mmol/L Normal 9-17 [facility] Comment on above: Performed By: #### C P #### [facility] [place] [address] [employer] Operator: Bib Morin DO AST [Catalytic activity/Vol] 25 U/L Normal <32 [facility] Comment on above: Performed By: #### C P #### [facility] [place] [address] [employer] Operator: Bib Morin DO Bilirubin [Mass/Vol] 0.26 mg/dL Low 0.3-1.2 [facility] Comment on above: Performed By: #### C P #### [facility] [place] [address] [employer] Operator: Bib Morin DO Calcium [Mass/Vol] 9.4 mg/dL Normal 8.6-10.4 [facility] Comment on above: Performed By: #### C P #### [facility] [address] [place] [address] [employer] Operator: Bib Morin DO Chloride [Moles/Vol] 104 mmol/L Normal 98-107 [facility] Comment on above: Performed By: #### C P #### [facility] [address] [place] [address] [employer] Operator: Bib Morin DO CO2 [Moles/Vol] 23 mmol/L Normal 20-31 [facility] Comment on above: Performed By: #### C P #### [facility] [address] [place] [address] [employer] Operator: Bib Morin DO Creatinine [Mass/Vol] 0.67 mg/dL Normal 0.50-0.90 [facility] Comment on above: Performed By: #### C P #### [facility] [address] [place] [address] [employer] Operator: Bib Morin DO GFR, Amer >60 Normal >60 [facility] Comment on above: Performed By: #### C P #### [facility] [address] [place] [address] [employer] Operator: Bib Morin DO GFR,non Amer >60 Normal >60 [facility] Comment on above: Performed By: #### C P #### [facility] [address] [place] [address] [employer] Operator: Bib Morin DO Glucose [Mass/Vol] 91 mg/dL Normal 70-99 [facility] Comment on above: Performed By: #### C P #### [facility] [address] [place] [address] [employer] Operator: Bib Morin DO Potassium [Moles/Vol] 4.3 mmol/L Normal 3.7-5.3 [facility] Comment on above: Performed By: #### C P #### [facility] [address] [facility] [place] [address] [employer] Operator: Bib Morin DO Protein [Mass/Vol] 6.5 g/dL Normal 6.4-8.3 [facility] Comment on above: Performed By: #### C P #### [facility] [address] [place] [address] [employer] Operator: Bib Morin DO Sodium [Moles/Vol] 136 mmol/L Normal 135-144 [facility] Comment on above: Performed By: #### C P #### [facility] [address] [place] [address] [employer] Operator: Bib Morin DO Urea nitrogen [Mass/Vol] 10 mg/dL Normal 6-20 [facility] Comment on above: Performed By: #### C P #### [facility] [address] [place] [address] [employer] Operator: Bib Morin DO Lithiumon 08-08-2021 Meyer [Moles/Vol] mmol/L Low 0.6-1.2 [facility] Comment on above: Performed By: #### L IC #### [facility] [address] [place] [address] [employer] Operator: Cj Cruz MD Acetaminophenon 08-07-2021 Acetaminophen [Mass/Vol] ug/mL Low 10-30 [facility] Comment on above: Performed By: #### A CET #### [facility] [address] [place] [address] [place] [address] [employer] Operator: Tami Villanueva MD Acetaminophen Levelon 2021 Acetaminophen Level <5 Low 10 - 30 ug/mL [facility] Interpretation and review of laboratory results Abnormal [facility] Basic Metab w/rfx MGon 08-07 Potassium [Moles/Vol] 2.9 mmol/L Critically low 3.7-5.3 [facility] Comment on above: Performed By: #### C DP, BMPX, MG #### [facility] [address] [place] [address] [employer] Operator: Tami Villanueva MD (cont.) [facility] Comment on above: Result Comment: Aver age GFR for 30-39 years old: 107 mL/min/1.73sq m Chronic Kidney Disease: <60 mL/min/1.73sq m Kidney failure: <15 mL/min/1.73sq m eGFR calculated using average adult body mass. Additional eGFR calculator available at: http://www.[employer].Leho/multiple_crcl_2012.htm Performed By: #### C DP, BMPX, MG #### [address] [place] [address] [employer] Operator: Tami Villanueva MD Anion gap [Moles/Vol] 9 mmol/L Normal 9-17 [facility] Comment on above: Performed By: #### C DP, BMPX, MG #### [address] [place] [address] [employer] Operator: Tami Villanueva MD BUN/CRE Ratio 17 Normal 9-20 [facility] Comment on above: Performed By: #### C DP, BMPX, MG #### [facility] [address] [place] [address] [employer] Operator: Tami Villanueva MD Calcium [Mass/Vol] 9.5 mg/dL Normal 8.6-10.4 [facility] Comment on above: Performed By: #### C DP, BMPX, MG #### [facility] [address] [place], [place] [id number] [employer] Operator: Tami Villanueva MD Chloride [Moles/Vol] 102 mmol/L Normal 98-107 [facility] Comment on above: Performed By: #### C DP, BMPX, MG #### [facility] [address] [place], [place] [id number] [employer] Operator: Tami Villanueva MD CO2 [Moles/Vol] 28 mmol/L Normal 20-31 [facility] Comment on above: Performed By: #### C DP, BMPX, MG #### [facility] [address] [place], [place] 8[address]83 [employer] Operator: Tami Villanueva MD Creatinine [Mass/Vol] 0.70 mg/dL Normal 0.50-0.90 [facility] Comment on above: Performed By: #### C DP, BMPX, MG #### [facility] [address] [place], [place] [id number] [employer] Operator: Tami Villanueva MD GFR, Amer >60 Normal >60 [facility] Comment on above: Performed By: #### C DP, BMPX, MG #### [facility] [address] [place], [place] [id number] [employer] Operator: Tami Villanueva MD GFR,non Amer >60 Normal >60 [facility] Comment on above: Performed By: #### C DP, BMPX, MG #### [facility] [address] [place], [place] 858[address]83 [employer] Operator: Tami Villanueva MD Glucose [Mass/Vol] 56 mg/dL Low 70-99 [facility] Comment on above: Performed By: #### C DP, BMPX, MG #### [facility] [address] [place] [address] [employer] Operator: Tami Villanueva MD Sodium [Moles/Vol] 139 mmol/L Normal 135-144 [facility] Comment on above: Performed By: #### C DP, BMPX, MG #### [facility] [address] [place] [address] [employer] Operator: Tami Villanueva MD Staging: Normal [facility] Comment on above: Result Comment: Stag e 1: Some kidney damage normal GFR Stage 2: Mild kidney damage GFR 60-89 Stage 3: Moderate kidney damage GFR 30-59 Stage 4: Severe kidney damage GFR 15-29 Stage 5: Severe kidney damage GFR <15 ESRD - chronic treatment by dialysis or transplant Performed By: #### C DP, BMPX, MG #### [facility] [address] [place] [address] [employer] Operator: Tami Villanueva MD Urea nitrogen [Mass/Vol] 12 mg/dL Normal 6-20 [facility] Comment on above: Performed By: #### C DP, BMPX, MG #### [facility] [address] [place] [address] [employer] Operator: Tami Villanueva MD Basic Metabolic Panel w/ Ref ludy to MGon 08-07-2021 Anion gap [Moles/Vol] 9 mmol/L 9 - 17 mmol/L [facility] Calcium [Mass/Vol] 9.5 mg/dL 8.6 - 10. 4 mg/dL [facility] Chloride [Moles/Vol] 102 mmol/L 98 - 10 7 mmol/L [facility] CO2 [Moles/Vol] 28 mmol/L 20 - 31 mmol/L [facility] Creatinine [Mass/Vol] 0.7 mg/dL 0.50 - 0.90 mg/dL [facility] GFR >60 >60 mL/min [facility] GFR Non- >60 >60 mL/min [facility] Glucose [Mass/Vol] 56 mg/dL Low 70 - 99 mg/dL [facility] Interpretation and review of laboratory results Abnormal [facility] Potassium [Moles/Vol] 2.9 mmol/L Critically low 3.7 - 5.3 mmol/L [facility] Sodium [Moles/Vol] 139 mmol/L 135 - 144 mmol/L [facility] Urea nitrogen (BldV) [Mass/Vol] 12 mg/dL 6 - 20 mg/dL [facility] Urea nitrogen/Creatinine (Bld) [Mass ratio] 17 [facility] CBC with Auto Differentialon 08-07-2021 Absolute Eos # 0.11 [facility] Absolute Immature Granulocyte <0.03 [facility] Absolute Lymph # 1.45 [facility] Absolute [place] [facility].43 [facility] Basophils (Bld) [#/Vol] 0.06 10*3/uL [facility] Basophils/100 WBC (Bld) 1 % 0 - 2 % [facility] Eosinophils/100 WBC (Bld) 2 % 1 - 4 % [facility] Hematocrit (Bld) [Volume fraction] 39.9 % 36.3 - 47.1 % [facility] Hemoglobin.gastrointes tinal spec 1 Ql (Stl) 12.7 g/dL 11.9 - 15.1 g/dL [facility] Immature granulocytes/100 WBC (Bld) 0 % 0 [facility] Interpretation and review of laboratory results Abnormal [facility] Lymphocytes/100 WBC (Bld) 31 % 24 - 43 % [facility] MCH (RBC) [Entitic mass] 28.0 pg 25.2 - 33.5 pg [facility] MCHC (RBC) [Mass/Vol] 31.8 g/dL 28.4 - 34.8 g/dL [facility] MCV (RBC) [Entitic vol] 88.1 fL 82.6 - 102.9 fL [facility] Monocytes/100 WBC (Bld) 9 % 3 - 12 % [facility] NRBC Automated 0.0 0.0 per 100 WBC [facility] Platelet distribution width (Bld) [Ratio] 17.2 % High 11.8 - 14.4 % [facility] Platelet mean volume (Bld) [Entitic vol] 10.3 fL 8.1 - 13.5 fL [facility] Platelets (Bld) [#/Vol] 269 10*3/uL [facility] RBC (Bld) [#/Vol] 4.53 10*6/uL 3.95 - 5.1 1 m/uL [facility] Segmented neutrophils/100 WBC (Bld) 57 % 36 - 65 % [facility] Segs Absolute 2.[address] [facility] WBC (Bld) [#/Vol] 4.7 10*3/uL [facility] CBC with Diffon 08-07-2021 Abs. Basophil 0.06 k/uL Normal 0.00-0.20 [facility] Comment on above: Performed By: #### C DP, BMPX, MG #### [address] [place], [place] [address] [employer] Operator: Tami Villanueva MD Abs.Imm.Granulocyte <0.03 Normal 0.00-0.30 [facility] Comment on above: Performed By: #### C DP, BMPX, MG #### [address] [place] [address] [employer] Operator: Tami Villanueva MD Abs.Neutrophil (Seg) 2.62 k/uL Normal 1.50-8.10 [facility] Comment on above: Performed By: #### C DP, BMPX, MG #### [address] [place], [place] [address] [employer] Operator: Tami Villanueva MD Basophils/100 WBC (Bld) 1 % Normal 0-2 [facility] Comment on above: Performed By: #### C DP, BMPX, MG #### [address] [place], [place] [address] [employer] Operator: Tami Villanueva MD Eosinophils (Bld) [#/Vol] 0.11 10*3/uL Normal 0.00-0.44 [facility] Comment on above: Performed By: #### C DP, BMPX, MG #### [address] [place] [address] [employer] Operator: Tami Villanueva MD Eosinophils/100 WBC (Bld) 2 % Normal 1-4 [facility] Comment on above: Performed By: #### C DP, BMPX, MG #### [facility] [address] [place] [address] Dr. [place], [place] [id number] [employer] Operator: Tami Villanueva MD Erythrocyte distribution width (RBC) [Ratio] 17.2 % High 11.8-14.4 [facility] Comment on above: Performed By: #### C DP, BMPX, MG #### [address] [place], [place] [id number] [employer] Operator: Tami Villanueva MD Hematocrit (Bld) [Volume fraction] 39.9 % Normal 36.3-47.1 [facility] Comment on above: Performed By: #### C DP, BMPX, MG #### [address] [place], [place] [id number] [employer] Operator: Tami Villanueva MD Hemoglobin (Bld) [Mass/Vol] 12.7 g/dL Normal 11.9-15.1 [facility] Comment on above: Performed By: #### C DP, BMPX, MG #### [address] [place], [place] [id number] [employer] Operator: Tami Villanueva MD Immature granulocytes/100 WBC (Bld) 0 % Normal 0 [facility] Comment on above: Performed By: #### C DP, BMPX, MG #### [address] [place], [place] [address]65483 [employer] Operator: Tami Villanueva MD Lymphocytes (Bld) [#/Vol] 1.45 10*3/uL Normal 1.10-3.70 [facility] Comment on above: Performed By: #### C DP, BMPX, MG #### [address] [place] [address] [employer] Operator: Tami Villanueva MD Lymphocytes/100 WBC (Bld) 31 % Normal 24-43 [facility] Comment on above: Performed By: #### C DP, BMPX, MG #### [address] [place], [place] [id number] [employer] Operator: Tami Villanueva MD MCH (RBC) [Entitic mass] 28.0 pg Normal 25.2-33.5 [facility] Comment on above: Performed By: #### C DP, BMPX, MG #### [facility] [address] [place] [facility] [employer] Operator: Tami Villanueva MD MCHC (RBC) [Mass/Vol] 31.8 g/dL Normal 28.4-34.8 [facility] Comment on above: Performed By: #### C DP, BMPX, MG #### [address] [place] [id number] [employer] Operator: Tami Villanueva MD MCV (RBC) [Entitic vol] 88.1 fL Normal 82.6-102.9 [facility] Comment on above: Performed By: #### C DP, BMPX, MG #### [address] [place], [facility]83 [employer] Operator: Tami Villanueva MD Monocytes (Bld) [#/Vol] 0.43 10*3/uL Normal 0.10-1.20 [facility] Comment on above: Performed By: #### C DP, BMPX, MG #### [address] [place], [facility]83 [employer] Operator: Tami Villanueva MD Monocytes/100 WBC (Bld) 9 % Normal 3-12 [facility] Comment on above: Performed By: #### C DP, BMPX, MG #### [facility] [address] [place], [facility]83 [employer] Operator: Tami Villanueva MD Neutrophil (Seg) 57 % Normal 36-65 [facility] Comment on above: Performed By: #### C DP, BMPX, MG #### [facility] [address] [place], [facility]83 [employer] Operator: Tami Villanueva MD NRBC Automated 0.0 per 100 WBC Normal 0.0 [facility] Comment on above: Performed By: #### C DP, BMPX, MG #### [facility] [address] [place] [address] Dr. [place], [place] [phone] [employer] Operator: Tami Villanueva MD Platelet mean volume (Bld) [Entitic vol] 10.3 fL Normal 8.1-13.5 [facility] Comment on above: Performed By: #### C DP, BMPX, MG #### [address] [place] [address] [employer] Operator: Tami Villanueva MD Platelets (Bld) [#/Vol] 269 10*3/uL Normal 138-453 [facility] [facility] Comment on above: Performed By: #### C DP, BMPX, MG #### [address] [place], [place] [id number] Washer [employer] Capper Machine Operator: Tami Villanueva MD RBC (Bld) [#/Vol] 4.53 10*6/uL Normal 3.95-5.11 [facility] Comment on above: Performed By: #### C DP, BMPX, MG #### [address] [place], [place] [id number] [employer] Machine Operator: Tami Villanueva MD WBC (Bld) [#/Vol] 4.7 10*3/uL Normal 3.5-11.3 [facility] Comment on above: Performed By: #### C DP, BMPX, MG #### [address] [place], [place] [id number] Washer [employer] Capper Machine Operator: Tami Villanueva MD COVID-19, Rapidon 08-07-2021 SARS-CoV-2 (COVID-19) RNA AMARA+probe Ql (Unsp spec) Not detected Not Detected [facility] Comment on above: Rapid NAAT: The specimen is NEGATIVE for SARS-CoV-2, the novel coronavirus associated with COVID-19. The ID NOW COVID-19 assay is designed to detect the virus that causes COVID-19 in patients with signs and symptoms of infection who are suspected of COVID-19. An individual without symptoms of COVID-19 and who is not shedding SARS-CoV-2 virus would expect to have a negative (not detected) result in this assay. Negative results should be treated as presumptive and, if inconsistent with clinical signs and symptoms or necessary for patient management, should be tested with an alternative molecular assay. Negative results do not preclude SARS-CoV-2 infection and should not be used as the sole basis for patient management decisions. Fact sheet for Healthcare Providers: https://www.fda.gov/media/919534/download Fact sheet for Patients: https://www.fda.gov/media/461676/download Methodology: Isothermal Nucleic Acid Amplification Specimen Description .NASOPHARYNGEAL SWAB [facility] HCG, ,Urineon 08-07 Beta HCG ( test) Ql (U) Negative Normal NEG [facility] Comment on above: Result Comment: Spec imens with hCG levels near the threshold of the test (25 mIU/mL) may give a negative or indeterminate result. In such cases, another test should be performed with a new specimen in 48-72 hours. If early is suspected clinically in this setting, correlation with quantitative serum b-hCG level is suggested. [facility] has confirmed the use of plasma for this test. This has not been cleared or approved by the U.S. Food and Drug Administration. The FDA has determined that such clearance is not necessary. Performed By: #### U HCG, UAX, UMICAO #### [facility] [address] [place] [address] [place] [address] [employer] C[employer] Machine Operator: Tami Villanueva MD Laboratory - Chemistry and C hemistry - challengeon 08-07-2021 GFR/1.73 sq M.predicted MDRD (S/P/Bld) [Vol rate/Area] [facility] Comment on above: Average GFR for 30-3 9 years old: 107 mL/min/1.73sq m Chronic Kidney Disease: <60 mL/min/1.73sq m Kidney failure: <15 mL/min/1.73sq m eGFR calculated using average adult body mass. Additional eGFR calculator available at: http://www.[employer].Leho/multiple_crcl_2012.htm Stage 1: Some kidney damage normal GFR Stage 2: Mild kidney damage GFR 60-89 Stage 3: Moderate kidney damage GFR 30-59 Stage 4: Severe kidney damage GFR 15-29 Stage 5: Severe kidney damage GFR <15 ESRD - chronic treatment by dialysis or transplant Magnesiumon 08-07-2021 Magnesium [Mass/Vol] 2.1 mg/dL Normal 1.6-2.6 [facility] Comment on above: Performed By: #### U HCG, UAX, UMICAO #### [facility] [address] [place] [address] Washer [employer] Capper Machine Operator: Tami Villanueva MD Magnesium [Mass/Vol] 2.1 mg/dL 1.6 - 2 .6 mg/dL [facility] Microscopic Urinalysison - [facility] Bacteria, UA 1+ Abnormal None [facility] Epithelial Cells UA 0 TO 2 [facility] Interpretation and review of laboratory results Abnormal [facility] RBC, UA 0 TO 2 [facility] WBC, UA 2 TO 5 [facility] , Urineon 2 Beta HCG ( test) Ql (U) Negative NEGATIVE [facility] Comment on above: Specimens with hCG l evels near the threshold of the test (25 mIU/mL) may give a negative or indeterminate result. In such cases, another test should be performed with a new specimen in 48-72 hours. If early is suspected clinically in this setting, correlation with quantitative serum b-hCG level is suggested. [facility] has confirmed the use of plasma for this test. This has not been cleared or approved by the U.S. Food and Drug Administration. The FDA has determined that such clearance is not necessary. [facility] [id number] 08-07-2021 SARS-CoV-2 (COVID-19) RNA AMARA+probe Ql (Unsp spec) Not detected Normal NOTDET [facility] Comment on above: Result Comment: Rapid NAAT: The specimen is NEGATIVE for SARS-CoV-2, the novel coronavirus associated with COVID-19. The ID NOW COVID-19 assay is designed to detect the virus that causes COVID-19 in patients with signs and symptoms of infection who are suspected of COVID-19. An individual without symptoms of COVID-19 and who is not shedding SARS-CoV-2 virus would expect to have a negative (not detected) result in this assay. Negative results should be treated as presumptive and, if inconsistent with clinical signs and symptoms or necessary for patient management, should be tested with an alternative molecular assay. Negative results do not preclude SARS-CoV-2 infection and should not be used as the sole basis for patient management decisions. Fact sheet for Healthcare Providers: https://www.fda.gov/media/655653/download Fact sheet for Patients: https://www.fda.gov/media/493942/download Methodology: Isothermal Nucleic Acid Amplification Performed By: #### C OVRB #### [address] [place] [address] Washer [employer] Capper Machine Operator: Tami Villanueva MD Salicylateon 08-07-2021 Salicylate <1 Low 3-10 [facility] Comment on above: Performed By: #### U HCG, UAX, UMICAO #### [address] [place] [address] [employer] Capper Machine Operator: Tami Villanueva MD Interpretation and review of laboratory results Abnormal [facility] Salicylate Lvl <1 Low 3 - 10 mg/dL [facility] TSH w/reflex to FT4on 2021 TSH Qn 0.99 m[IU]/L Normal 0.30-5.00 [facility] Comment on above: Performed By: #### T SHX #### [address] [place] [address] Was[employer] Capper Machine Operator: Tami Villanueva MD TSH with Reflexon 08-07-2021 TSH Qn 0.99 m[IU]/L [facility] UA w/Reflex Cultureon 2021 Bilirubin, SemiQt,Ur Negative Normal NEG [facility] Comment on above: Performed By: #### U HCG, UAX, UMICAO #### [facility] [address] [place] [address] Dr. [place], [place] [phone] [employer] Machine Operator: Tami Villanueva MD Blood, Urine Negative Normal NEG [facility] Comment on above: Performed By: #### U HCG, UAX, UMICAO #### [facility] [address] [place], [place] [phone] Was[employer] Capper Machine Operator: Tami Villanueva MD Clarity (U) Clear Normal CLEAR [facility] Comment on above: Performed By: #### U HCG, UAX, UMICAO #### [facility] [address] [place], [place] [id number] Was[employer] Capper Machine Operator: Tami Villanueva MD Color (U) Yellow Normal YEL [facility] Comment on above: Performed By: #### U HCG, UAX, UMICAO #### [facility] [address] [place], [place] [phone] [employer] Capper Machine Operator: Tami Villanueva MD Glucose Ql (U) Negative Normal NEG [facility] Comment on above: Performed By: #### U HCG, UAX, UMICAO #### [facility] [address] [place] [address] Dr. [place], [place] [phone] [employer] Capper Machine Operator: Tami Villanueva MD Ketones Ql (U) Negative Normal NEG [facility] Comment on above: Performed By: #### U HCG, UAX, UMICAO #### [facility] [address] [place], [place] [phone] Was[employer] Capper Machine Operator: Tami Villanueva MD Leukocyte esterase Test strip Ql (U) SMALL Abnormal NEG [facility] Comment on above: Performed By: #### U HCG, UAX, UMICAO #### [facility] [address] [place], [place] [phone] Was[employer] Capper Machine Operator: Tami Villanueva MD Nitrite,Ur Negative Normal [facility] Comment on above: Performed By: #### U HCG, UAX, UMICAO #### [facility] [address] [place], [place] [phone] Washer [employer] Capper Machine Operator: Tami Villanueva MD PH,Ur 6.0 Normal 5.0-9.0 [facility] Comment on above: Performed By: #### U HCG, UAX, UMICAO #### [facility] [address] [place] [address] [place]. [place], [place] [phone] Was[employer] Capper Machine Operator: Tami Villanueva MD Protein Ql (U) Negative Normal NEG [facility] Comment on above: Performed By: #### U HCG, UAX, UMICAO #### [facility] [address] [place] [address] [place] [phone] Washer [employer] Capper Machine Operator: Tami Villanueva MD Spec. [place],Ur <1.005 Low 1.010-1.020 [facility] Comment on above: Performed By: #### U HCG, UAX, UMICAO #### [facility] [address] [place] [address] Dr. [place], [facility] Washer [employer] Capper Machine Operator: Tami Villanueva MD Urobilinogen,Ur Normal Normal NORM [facility] Comment on above: Performed By: #### U HCG, UAX, UMICAO #### [address] [place] [address] Washer And Capper Machine Operator: Tami Villanueva MD Urinalysis with Reflex to Cu ltureon 08-07-2021 Bilirubin Urine Negative NEGATIVE [facility] Color, UA Yellow Yellow [facility] Glucose, Ur Negative NEGATIVE [facility] Interpretation and review of laboratory results Abnormal [facility] Ketones Ql (U) Negative NEGATIVE [facility] Leukocyte esterase Test strip Ql (U) SMALL Abnormal NEGATIVE [facility] Nitrite, Urine Negative NEGATIVE [facility] pH, UA 6.0 [facility] Protein, UA Negative NEGATIVE [facility] Specific [place], UA <1.005 Low [facility] Turbidity UA Clear Clear [facility] Urine Hgb Negative NEGATIVE [facility] Urobilinogen, Urine Normal Normal [facility] Urinalysis,Microon 2 ----- Normal [facility] Comment on above: Performed By: #### U HCG, UAX, UMICAO #### [facility] [address] [place] [address] Washer And Capper Machine Operator: Tami Villanueva MD Bacteria 1+ Abnormal NONE [facility] Comment on above: Performed By: #### U HCG, UAX, UMICAO #### [facility] [address] [place] [address] Washer And Capper Machine Operator: Tami Villanueva MD Epithelial cells LM Ql (Urine sed) 0 TO 2 Normal 0-25 [facility] Comment on above: Performed By: #### U HCG, UAX, UMICAO #### [facility] [address] [place] [address] Washer And Capper Machine Operator: Tami Villanueva MD Urine RBC's 0 TO 2 Normal 0-2 [facility] Comment on above: Performed By: #### U HCG, UAX, UMICAO #### [facility] [address] [place] [address] Washer And Capper Machine Operator: Tami Villanueva MD Urine WBC's 2 TO 5 Normal 0-5 [facility] Comment on above: Performed By: #### U HCG, UAX, UMICAO #### [facility] [address] [place] [address] Washer And Capper Machine Operator: Tami Villanueva MD Coronavirus 2019on 1 SARS-CoV-2 (COVID-19) RNA AMARA+probe Ql (Unsp spec) Normal Negative for COVID19 (SARS CoV2) by RT-PCR or equival [facility] Comment on above: Result Comment: Nega tive for This test was developed and its performance characteristics determined by [facility] [place]. This test has been authorized by FDA under an Emergency Use Authorization (EUA). This test has been validated in accordance with the FDA's Guidance Document Policy for Diagnostics Testing in Laboratories Certified to Perform High Complexity Testing under CLIA prior to Emergency use Authorization for Coronavirus Disease 2019 during the Public Health Emergency issued on July 27, 2019. Test performed by [facility], [facility] [place], [address] [place], [place] [address]. COVID19 (SARS This test was developed and its performance characteristics determined by [facility]'s [facility] and [facility] [place]. This test has been authorized by FDA under an Emergency Use Authorization (EUA). This test has been validated in accordance with the FDA's Guidance Document Policy for Diagnostics Testing in Laboratories Certified to Perform High Complexity Testing under CLIA prior to Emergency use Authorization for Coronavirus Disease 2019 during the Public Health Emergency issued on July 27, 2019. Test performed by [facility], [facility] Laboratory [facility], [address] [place], [place] [address]. CoV2) by RT-PCR This test was developed and its performance characteristics determined by [facility]. This test has been authorized by FDA under an Emergency Use Authorization (EUA). This test has been validated in accordance with the FDA's Guidance Document Policy for Diagnostics Testing in Laboratories Certified to Perform High Complexity Testing under CLIA prior to Emergency use Authorization for Coronavirus Disease 2019 during the Public Health Emergency issued on July 27, 2019. Test performed by [facility], [facility] and [facility] [place], [address], [place] [address]. or equivalent This test was developed and its performance characteristics determined by [facility] and [facility] [place]. This test has been authorized by FDA under an Emergency Use Authorization (EUA). This test has been validated in accordance with the FDA's Guidance Document Policy for Diagnostics Testing in Laboratories Certified to Perform High Complexity Testing under CLIA prior to Emergency use Authorization for Coronavirus Disease 2019 during the Public Health Emergency issued on July 27, 2019. Test performed by [facility], [facility] and [facility] [place], [address], [place] [address]. ethod. This test was developed and its performance characteristics determined by [facility]'s [facility]ology and Laboratory [facility] [place]. This test has been authorized by FDA under an Emergency Use Authorization (EUA). This test has been validated in accordance with the FDA's Guidance Document Policy for Diagnostics Testing in Laboratories Certified to Perform High Complexity Testing under CLIA prior to Emergency use Authorization for Coronavirus Disease 2019 during the Public Health Emergency issued on July 27, 2019. Test performed by [facility], [facility] Pathology and [facility] [place], [address] [place], [place] [address]. 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 Pathology Reports Accession: Collected Date/Time: Received Date/Time: Pathologist: [id number] 07/15/2019 14:18 EST 07/16/2019 13:34 EST MD FREDERICK ONTIVEROS Final Surgical Pathology Report DIAGNOSIS: A) CERVIX, BIOPSY: CONDYLOMA AND MILD SQUAMOUS DYSPLASIA. IMMUNOPEROXIDASE STAIN FOR P16 IS NEGATIVE. B) ENDOCERVIX, CURETTAGE: MUCUS AND FRAGMENTS OF ENDOCERVICAL TISSUE WITH NO SPECIFIC PATHOLOGIC CHANGES. COMMENT: [facility] - D# [id number] CLINICAL INFORMATION: ABNORMAL PAP SMEAR OF CERVIX SPECIMEN: A CERVIX, BX B ECC GROSS DESCRIPTION: A. Received in formalin labeled 12:00 are 2 sanchez glistening soft tissues, 0.4 and 0.7 cm. TS -1 B. Received in formalin labeled ECC is about 0.25 cc of blood-tinged mucus. TS - 1 Dictated by Pam BENITES (ASCP) MICROSCOPIC DESCRIPTION: A&B) Slides reviewed. Electronically Signed by Pathology Report verified by [facility] Electronically signed by FREDERICK ONTIVEROS MD Sign out Date: 07/19/2019 07:46 Performing Lab: [facility], [address] [place] [id number] [place] [address] ([place]) Comment on above: Performed By: #### C BC, ADIFF, ANEU, APTT #### [address] [address] HPVon 06-05-2019 HPV Interp See Interp HPVN [facility] ([place]) Comment on above: Order Comment: Order placed by [id number] rule from [id number] Result Comment: High Risk HPV Typing Positive: HPV Type 18 and additional high risk types detected (other than HPV 16). Specimen is positive for HPV type 18 DNA and the DNA of any one of, or combination of, the following high risk HPV types: 31, 33, 35, 39, 45, 51, 52, 56, 58, 59, 66, 68. HPV type 16 DNA was undetectable or below the pre-set threshold. The leonel High-Risk HPV DNA Test is not intended for use as a screening device for Pap normal women under age 30 and is not intended to substitute for regular Pap screening. The leonel High-Risk HPV DNA Test is designed to augment existing methods for the detection of cervical disease and should be used in conjunction with clinical information derived from other diagnostic and screening tests, physical examinations and full medical history in accordance with appropriate patient management procedures. NOTE: A negative result does not preclude the presence of HPV infection because results depend on adequate specimen collection, absence of inhibitors and sufficient DNA to be detected. See Interp HPOE Performed By: #### C BC, ADIFF, ANEU, APTT #### [place] [address] HPV Source Cervix Normal [facility] ([place]) Comment on above: Order Comment: Order placed by [id number] rule from [id number] Performed By: #### C BC, ADIFF, ANEU, APTT #### [address] [address] [facility] Reporton 2019 [facility] Report . Pathology Reports Accession: Collected Date/Time: Received Date/Time: Pathologist: [id number] 05/28/2019 11:14 EST 05/30/2019 18:00 MD FREEDRICK NG [facility] Report SPECIMEN: Specimen Description: Liquid Prep Reflex ASCUS Specimen: Cervical Screening or Diagnostic: Screening RELEVANT HISTORY: LMP: Post [id number] SPECIMEN ADEQUACY: SATISFACTORY FOR EVALUATION ENDOCERVICAL/TRANSFORM ATIONAL ZONE COMPONENT PRESENT INTERPRETATION/RESULTS : ATYPICAL SQUAMOUS CELLS OF UNDETERMINED SIGNIFICANCE ADJUNCTIVE TESTING: HIGH RISK HPV DNA TESTING ORDERED, REPORT TO FOLLOW UNDER SEPARATE COVER COMMENT: This Pap Test was successfully processed and evaluated with the assistance of the [employer] ThinPrep Test Imaging System. Electronically Signed by Pathology report verified by [facility] Screened by: SAMMIE RM Electronically signed by FREDERICK ONTIVEROS MD Sign-Out Date: 06/03/2019 15:15 Performing Lab: [address] States Disclaimer The Pap test is a screening test for cervical cancer. As evidenced by published data, it is subject to both inherent false negative and false positive results. Your patient's results should be interpreted in context with pertinent clinical history including gynecological examination. Normal [facility] ([place]) Comment on above: Performed By: #### C BC, ADIFF ANEU, APTT #### [place] [address] .Auto Diffon 05-03-2019 Ammonia (P) [Mass/Vol] 0.30 10 3/mcL Normal 0.09-1.40 [facility] ([place]) Comment on above: Performed By: #### C BC, ADIFF ANEU, APTT #### [place] [address] Basophils (Bld) [#/Vol] 0.00 10 3/mcL Normal 0.00-0.27 [facility] ([place]) Comment on above: Performed By: #### C BC, ADIFF, ANEU, APTT #### [address] [address] Basophils/100 WBC (Bld) 0.9 % Normal 0.0-2.5 [facility] ([place]) Comment on above: Performed By: #### C BC, ADIFF, ANEU, APTT #### [address] [address] Eosinophils (Bld) [#/Vol] 0.20 10 3/mcL Normal 0.00-0.65 [facility] ([place]) Comment on above: Performed By: #### C BC, ADIFF, ANEU, APTT #### [address] [address] Eosinophils/100 WBC (Bld) 3.0 % Normal 0.0-6.0 [facility] ([place]) Comment on above: Performed By: #### C BC, ADIFF, ANEU, APTT #### [address] [address] Lymphocytes (Bld) [#/Vol] 2.40 10 3/mcL Normal 0.90-4.32 [facility] ([place]) Comment on above: Performed By: #### C BC, ADIFF, ANEU, APTT #### [address] [address] Lymphocytes/100 WBC (Bld) 47.6 % High 20.0-40.0 [facility] ([place]) Comment on above: Performed By: #### C BC, ADIFF, ANEU, APTT #### [address] [address] Monocytes/100 WBC (Bld) 5.1 % Normal 2.0-13.0 [facility] ([place]) Comment on above: Performed By: #### C BC, ADIFF, ANEU, APTT #### [address] [address] Neutrophils/100 WBC (Bld) 43.4 % Low 50.0-75.0 [facility] ([place]) Comment on above: Performed By: #### C BC, ADIFF, ANEU, APTT #### [address] [address] .NEUABSon 05-03-2019 Neutrophils (Bld) [#/Vol] 2.20 10 3/mcL Low 2.25-8.10 [facility] ([place]) Comment on above: Performed By: #### C BC, ADIFF, ANEU, APTT #### [address] [address] APTTon 05-03-2019 aPTT Coag (Bld) [Time] 77.1 s High 25.0-35.0 [facility] ([place]) Comment on above: Result Comment: For Heparin anticoagulation therapy, the recommended therapeutic range is: 54-77 seconds (APTT Correlation with Anti-Xa therapeutic range of 0.3-0.7 units/ml). PLEASE REFERENCE THE PHARMACY PROTOCOL FOR DOSING. Performed By: #### C BC, ADIFF, ANEU, APTT #### [address] [address] aPTT Coag (Bld) [Time] Heparin IV Normal [facility] ([place]) Comment on above: Performed By: #### C MECHELLE VIRGEN ANEU, APTT #### [address] [address] aPTT Coag (Bld) [Time] 74.5 s High 25.0-35.0 [facility] ([place]) Comment on above: Result Comment: For Heparin anticoagulation therapy, the recommended therapeutic range is: 54-77 seconds (APTT Correlation with Anti-Xa therapeutic range of 0.3-0.7 units/ml). PLEASE REFERENCE THE PHARMACY PROTOCOL FOR DOSING. Performed By: #### C MECHELLE VIRGEN ANEU, APTT #### [place] [id number] aPTT Coag (Bld) [Time] Heparin IV Normal [facility] ([place]) Comment on above: Performed By: #### C MECHELLE VIRGEN ANEU, APTT #### [address] [address] CBCon 05-03-2019 Erythrocyte distribution width (RBC) [Ratio] 23.6 % High 11.5-15.5 [facility] ([place]) Comment on above: Performed By: #### C MECHELLE VIRGEN ANEU, APTT #### [place] [id number] Hematocrit (Bld) [Volume fraction] 32.9 % Low 34.0-46.0 [facility] ([place]) Comment on above: Performed By: #### C MECHELLE VIRGEN ANEU, APTT #### [address] [address] Hemoglobin (Bld) [Mass/Vol] 10.6 G/dL Low 12.0-16.0 [facility] ([place] Comment on above: Performed By: #### C BCMECHELLE ANEU, APTT #### [address] [address] MCH (RBC) [Entitic mass] 26.0 pg Low 27.0-33.0 [facility] ([place]) Comment on above: Performed By: #### C BC, ADIFF, ANEU, APTT #### [address] [address] MCHC (RBC) [Mass/Vol] 32.2 G/dL Normal 32.0-36.0 [facility] ([place]) Comment on above: Performed By: #### C BC, ADIFF, ANEU, APTT #### [place] [id number] MCV (RBC) [Entitic vol] 80.5 fL Normal 80.0-99.0 [facility] ([place]) Comment on above: Performed By: #### C BC, ADIFF, ANEU, APTT #### [place] [id number] Platelet mean volume (Bld) [Entitic vol] 8.2 fL Normal 6.6-10.5 [facility] ([place]) Comment on above: Performed By: #### C BC, ADIFF, ANEU, APTT #### [place] [address] Platelets (Bld) [#/Vol] 247 10 3/mcL Normal 150-450 [facility] ([place]) Comment on above: Performed By: #### C BC, ADIFF, ANEU, APTT #### [place] [id number] RBC (Bld) [#/Vol] 4.08 10 6/mcL Low 4.10-5.30 [facility] ([place]) Comment on above: Performed By: #### C BC, ADIFF, ANEU, APTT #### [place] [id number] WBC (Bld) [#/Vol] 5.00 10 3/mcL Normal 4.50-10.80 [facility] ([place]) Comment on above: Performed By: #### C BC, ADIFF, ANEU, APTT #### [address] [address] .Auto Diffon 05-02-2019 Ammonia (P) [Mass/Vol] 0.30 10 3/mcL Normal 0.09-1.40 [facility] ([place]) Comment on above: Performed By: #### C BC, ADIFF, ANEU, APTT #### [address] [address] Basophils (Bld) [#/Vol] 0.10 10 3/mcL Normal 0.00-0.27 [facility] ([place]) Comment on above: Performed By: #### C BC, ADIFF, ANEU, APTT #### [address] [address] Basophils/100 WBC (Bld) 2.4 % Normal 0.0-2.5 [facility] ([place]) Comment on above: Performed By: #### C BC, ADIFF, ANEU, APTT #### [address] [address] Eosinophils (Bld) [#/Vol] 0.10 10 3/mcL Normal 0.00-0.65 [facility] ([place]) Comment on above: Performed By: #### C BC, ADIFF, ANEU, APTT #### [address] [address] Eosinophils/100 WBC (Bld) 3.1 % Normal 0.0-6.0 [facility] ([place]) Comment on above: Performed By: #### C BC, ADIFF, ANEU, APTT #### [address] [address] Lymphocytes (Bld) [#/Vol] 1.80 10 3/mcL Normal 0.90-4.32 [facility] ([place]) Comment on above: Performed By: #### C BC, ADIFF, ANEU, APTT #### [address] [address] Lymphocytes/100 WBC (Bld) 40.1 % High 20.0-40.0 [facility] ([place]) Comment on above: Performed By: #### C BC, ADIFF, ANEU, APTT #### [address] [address] Monocytes/100 WBC (Bld) 6.1 % Normal 2.0-13.0 [facility] ([place]) Comment on above: Performed By: #### C MECHELLE VIRGEN ANEU, APTT #### [address] [address] Neutrophils/100 WBC (Bld) 48.3 % Low 50.0-75.0 [facility] ([place]) Comment on above: Performed By: #### C MECHELLE VIRGEN, CRISS, APTT #### [address] [address] Ammonia (P) [Mass/Vol] 0.40 10 3/mcL Normal 0.09-1.40 [facility] ([place]) Comment on above: Performed By: #### MECHELLE SEVERINO ANEU #### [address] [address] Basophils (Bld) [#/Vol] 0.10 10 3/mcL Normal 0.00-0.27 [facility] ([place]) Comment on above: Performed By: #### MECHELLE SEVERINO ANEU #### [address] [address] Basophils/100 WBC (Bld) 1.5 % Normal 0.0-2.5 [facility] ([place] Comment on above: Performed By: #### MECHELLE SEVERINO ANEU #### [address] [address] Eosinophils (Bld) [#/Vol] 0.10 10 3/mcL Normal 0.00-0.65 [facility] ([place]) Comment on above: Performed By: #### MECHELLE SEVERINO ANEU #### [address] [address] Eosinophils/100 WBC (Bld) 2.6 % Normal 0.0-6.0 [facility] ([place]) Comment on above: Performed By: #### MECHELLE SEVERINO ANEU #### [address] [address] Lymphocytes (Bld) [#/Vol] 2.30 10 3/mcL Normal 0.90-4.32 [facility] ([place]) Comment on above: Performed By: #### C BC, ADIFF, ANEU #### [address] [address] Lymphocytes/100 WBC (Bld) 41.5 % High 20.0-40.0 [facility] ([place]) Comment on above: Performed By: #### C BC, ADIFF, ANEU #### [address] [address] Monocytes/100 WBC (Bld) 6.5 % Normal 2.0-13.0 [facility] ([place]) Comment on above: Performed By: #### C BC, ADIFF, ANEU #### [address] [address] Neutrophils/100 WBC (Bld) 47.9 % Low 50.0-75.0 [facility] ([place]) Comment on above: Performed By: #### C BC, ADJUANI, ANEU #### [address] [address] Ammonia (P) [Mass/Vol] 0.40 10 3/mcL Normal 0.09-1.40 [facility] ([place]) Comment on above: Performed By: #### C PROMISE, ADJUANI, ANEU, APTT #### [address] [address] Basophils (Bld) [#/Vol] 0.00 10 3/mcL Normal 0.00-0.27 [facility] ([place]) Comment on above: Performed By: #### C BC, ADJUANI, ANEU, APTT #### [address] [address] Basophils/100 WBC (Bld) 0.8 % Normal 0.0-2.5 [facility] ([place]) Comment on above: Performed By: #### C BC, ADJUANI, ANEU, APTT #### [address] [address] Eosinophils (Bld) [#/Vol] 0.10 10 3/mcL Normal 0.00-0.65 [facility] ([place]) Comment on above: Performed By: #### C BC, ADIFF, ANEU, APTT #### [address] [address] Eosinophils/100 WBC (Bld) 2.0 % Normal 0.0-6.0 [facility] ([place] Comment on above: Performed By: #### C BC, ADIFF, ANEU, APTT #### [address] [address] Lymphocytes (Bld) [#/Vol] 2.30 10 3/mcL Normal 0.90-4.32 [facility] ([place]) Comment on above: Performed By: #### C BC, ADIFF, ANEU, APTT #### [address] [address] Lymphocytes/100 WBC (Bld) 37.6 % Normal 20.0-40.0 [facility] ([place] Comment on above: Performed By: #### C BC, ADIFF, ANEU, APTT #### [address] [address] Monocytes/100 WBC (Bld) 6.0 % Normal 2.0-13.0 [facility] ([place]) Comment on above: Performed By: #### C BC, ADIFF, ANEU, APTT #### [address] [address] Neutrophils/100 WBC (Bld) 53.6 % Normal 50.0-75.0 [facility] ([place] Comment on above: Performed By: #### C BC, ADIFF, ANEU, APTT #### [address] [address] .GFRon 05-02-2019 GFR >60 Normal [facility] ([place]) Comment on above: Result Comment: GFR Population mean for , Non- Americans Ages 20-29 = 116 mL/min/1.73 sq.m. Ages 30-39 = 107 mL/min/1.73 sq.m. Ages 40-49 = 99 mL/min/1.73 sq.m. Ages 50-59 = 93 mL/min/1.73 sq.m. Ages 60-69 = 85 mL/min/1.73 sq.m. Ages 70+ = 75 mL/min/1.73 sq.m. Chronic Kidney Disease: Less than 60 mL/min/1.73 square meters End Stage Renal Disease: Less than 15 mL/min/1.73 square meters Performed By: #### C BC, ADIFF, ANEU, APTT #### [address] [address] GFR Non- >60 Normal [facility] ([place] Comment on above: Result Comment: GFR Population mean for , Non- Americans Ages 20-29 = 116 mL/min/1.73 sq.m. Ages 30-39 = 107 mL/min/1.73 sq.m. Ages 40-49 = 99 mL/min/1.73 sq.m. Ages 50-59 = 93 mL/min/1.73 sq.m. Ages 60-69 = 85 mL/min/1.73 sq.m. Ages 70+ = 75 mL/min/1.73 sq.m. Chronic Kidney Disease: Less than 60 mL/min/1.73 square meters End Stage Renal Disease: Less than 15 mL/min/1.73 square meters Performed By: #### C BC, ADIFF, ANEU, APTT #### [address] [address] .NEUABSon 05-02-2019 Neutrophils (Bld) [#/Vol] 2.10 10 3/mcL Low 2.25-8.10 [facility] ([place] Comment on above: Performed By: #### C BC, ADIFF, ANEU, APTT #### [address] [address] Neutrophils (Bld) [#/Vol] 2.70 10 3/mcL Normal 2.25-8.10 [facility] ([place]) Comment on above: Performed By: #### C BC, ADIFF, ANEU #### [address] [address] Neutrophils (Bld) [#/Vol] 3.30 10 3/mcL Normal 2.25-8.10 [facility] ([place]) Comment on above: Performed By: #### C BC, ADIFF, ANEU, APTT #### [address] [address] APTTon 05-02-2019 aPTT Coag (Bld) [Time] 75.6 s High 25.0-35.0 [facility] ([place]) Comment on above: Result Comment: For Heparin anticoagulation therapy, the recommended therapeutic range is: 54-77 seconds (APTT Correlation with Anti-Xa therapeutic range of 0.3-0.7 units/ml). PLEASE REFERENCE THE PHARMACY PROTOCOL FOR DOSING. Performed By: #### C BC, ADIFF, ANEU, APTT #### [place] [address] aPTT Coag (Bld) [Time] Heparin IV Normal [facility] ([place]) Comment on above: Performed By: #### C BC, ADIFF, ANEU, APTT #### [place] [address] aPTT Coag (Bld) [Time] Unknown Normal [facility] ([place]) Comment on above: Performed By: #### C BC, ADIFF, ANEU, APTT #### [place] [address] aPTT Coag (Bld) [Time] 150.2 s Criticall y abnormal 25.0-35.0 [facility] ([place]) Comment on above: Result Comment: For Heparin anticoagulation therapy, the recommended therapeutic range is: 54-77 seconds (APTT Correlation with Anti-Xa therapeutic range of 0.3-0.7 units/ml). PLEASE REFERENCE THE PHARMACY PROTOCOL FOR DOSING. Performed By: #### C BC, ADIFF, ANEU, APTT #### [place] [address] BMPon 05-02-2019 Calcium [Mass/Vol] 9.0 mg/dL Normal 8.4-10.1 [facility] ([place]) Comment on above: Performed By: #### B MP, MG, GFR, CBC, ADIFF, ANEU #### [address] [address] Chloride [Moles/Vol] 110 mmol/L Normal 98-110 [facility] ([place]) Comment on above: Performed By: #### B MP, MG, GFR, CBC, ADIFF, ANEU #### [address] [address] CO2 [Moles/Vol] 26 mmol/L Normal 22-32 [facility] ([place]) Comment on above: Performed By: #### B MP, MG, GFR, CBC, ADIFF, ANEU #### [address] [address] Creatinine [Mass/Vol] 0.76 mg/dL Normal 0.50-1.20 [facility] ([place]) Comment on above: Performed By: #### B MP, MG, GFR, CBC, ADIFF, ANEU #### [address] [address] Electrolyte Balance 6.0 mEq/L Normal 4.0-15.0 [facility] ([place]) Comment on above: Performed By: #### B MP, MG, GFR, CBC, ADIFF, ANEU #### [address] [address] Glucose [Mass/Vol] 81 mg/dL Normal 70-110 [facility] ([place]) Comment on above: Performed By: #### B MP, MG, GFR, CBC, ADIFF, ANEU #### [address] [address] Potassium [Moles/Vol] 3.6 mmol/L Normal 3.5-5.0 [facility] ([place]) Comment on above: Performed By: #### B MP, MG, GFR, CBC, ADIFF, ANEU #### [address] [address] Sodium [Moles/Vol] 142 mmol/L Normal 136-145 [facility] ([place]) Comment on above: Performed By: #### B MP, MG, GFR, CBC, ADIFF, ANEU #### [address] [address] Urea nitrogen [Mass/Vol] 12.0 mg/dL Normal 8.0-22.0 [facility] ([place] Comment on above: Performed By: #### B MP, MG, GFR, CBC, ADIFF, ANEU #### [address] [address] Urea nitrogen/Creatinine [Mass ratio] 15.8 ratio Normal 10.0-22.0 [facility] ([place]) Comment on above: Performed By: #### B MP, MG, GFR, CBC, ADIFF, ANEU #### [address] [address] CBCon 05-02-2019 Erythrocyte distribution width (RBC) [Ratio] 23.4 % High 11.5-15.5 [facility] ([place] Comment on above: Performed By: #### C BC, ADIFF, ANEU, APTT #### [place] [address] Hematocrit (Bld) [Volume fraction] 33.1 % Low 34.0-46.0 [facility] ([place] Comment on above: Performed By: #### C BC, ADIFF, ANEU, APTT #### [place] [phone] Hemoglobin (Bld) [Mass/Vol] 10.5 G/dL Low 12.0-16.0 [facility] ([place] Comment on above: Performed By: #### C BC, ADIFF, ANEU, APTT #### [place] [id number] MCH (RBC) [Entitic mass] 25.5 pg Low 27.0-33.0 [facility] ([place] Comment on above: Performed By: #### C BC, ADIFF, ANEU, APTT #### [place] [id number] MCHC (RBC) [Mass/Vol] 31.7 G/dL Low 32.0-36.0 [facility] ([place]) Comment on above: Performed By: #### C BC, ADIFF, ANEU, APTT #### [place] [id number] MCV (RBC) [Entitic vol] 80.4 fL Normal 80.0-99.0 [facility] ([place] Comment on above: Performed By: #### C BC, ADIFF, ANEU, APTT #### [place] [id number] Platelet mean volume (Bld) [Entitic vol] 8.3 fL Normal 6.6-10.5 [facility] ([place] Comment on above: Performed By: #### C BCMECHELLE, ANEU, APTT #### [address] [address] Platelets (Bld) [#/Vol] 276 10 3/mcL Normal 150-450 [facility] ([place] Comment on above: Performed By: #### C BC, ADIFF, ANEU, APTT #### [address] [address] RBC (Bld) [#/Vol] 4.12 10 6/mcL Normal 4.10-5.30 [facility] ([place]) Comment on above: Performed By: #### C BC, MECHELLE, ANEU, APTT #### [address] [address] WBC (Bld) [#/Vol] 4.40 10 3/mcL Low 4.50-10.80 [facility] ([place]) Comment on above: Performed By: #### C PROMISE, MECHELLE, ANEU, APTT #### [address] [address] Erythrocyte distribution width (RBC) [Ratio] 23.9 % High 11.5-15.5 [facility] ([place] Comment on above: Performed By: #### C BC, MECHELLE, ANEU #### [address] [address] Hematocrit (Bld) [Volume fraction] 34.4 % Normal 34.0-46.0 [facility] ([place] Comment on above: Performed By: #### C BC, ADIFF, ANEU #### [address] [address] Hemoglobin (Bld) [Mass/Vol] 10.9 G/dL Low 12.0-16.0 [facility] ([place] Comment on above: Performed By: #### C BC, ADJUANI, ANEU #### [address] [address] MCH (RBC) [Entitic mass] 25.2 pg Low 27.0-33.0 [facility] ([place] Comment on above: Performed By: #### C MECHELLE VIRGEN ANEU #### [address] [address] MCHC (RBC) [Mass/Vol] 31.6 G/dL Low 32.0-36.0 [facility] ([place]) Comment on above: Performed By: #### MECHELLE SEVERINO, ANEU #### [place] [id number] MCV (RBC) [Entitic vol] 79.9 fL Low 80.0-99.0 [facility] ([place] Comment on above: Performed By: #### MECHELLE SEVERINO, CRISS #### [place] [id number] Platelet mean volume (Bld) [Entitic vol] 8.7 fL Normal 6.6-10.5 [facility] ([place] Comment on above: Performed By: #### MECHELLE SEVERINO, ANEU #### [place] [id number] Platelets (Bld) [#/Vol] 293 10 3/mcL Normal 150-450 [facility] ([place] Comment on above: Performed By: #### C MECHELLE VIRGEN ANEU #### [place] [id number] RBC (Bld) [#/Vol] 4.31 10 6/mcL Normal 4.10-5.30 [facility] ([place]) Comment on above: Performed By: #### MECHELLE SEVERINO, ANEU #### [place] [id number] WBC (Bld) [#/Vol] 5.60 10 3/mcL Normal 4.50-10.80 [facility] ([place]) Comment on above: Performed By: #### MECHELLE SEVERINO, ANEU #### [address] [address] Erythrocyte distribution width (RBC) [Ratio] 23.5 % High 11.5-15.5 [facility] ([place] Comment on above: Performed By: #### MECHELLE SEVERINO ANEU, APTT #### [place] [id number] Hematocrit (Bld) [Volume fraction] 36.0 % Normal 34.0-46.0 [facility] ([place] Comment on above: Performed By: #### C BC, ADIFF, ANEU, APTT #### [place] [phone] Hemoglobin (Bld) [Mass/Vol] 11.1 G/dL Low 12.0-16.0 [facility] ([place] Comment on above: Performed By: #### C BC, ADJUANI, ANEU, APTT #### [place] [id number] MCH (RBC) [Entitic mass] 24.9 pg Low 27.0-33.0 [facility] ([place] Comment on above: Performed By: #### C BC, ADJUANI, ANEU, APTT #### [place] [id number] MCHC (RBC) [Mass/Vol] 30.8 G/dL Low 32.0-36.0 [facility] ([place]) Comment on above: Performed By: #### C BC, ADJUANI, ANEU, APTT #### [place] [id number] MCV (RBC) [Entitic vol] 80.9 fL Normal 80.0-99.0 [facility] ([place] Comment on above: Performed By: #### C BC, ADJUANI, ANEU, APTT #### [place] [id number] Platelet mean volume (Bld) [Entitic vol] 8.5 fL Normal 6.6-10.5 [facility] ([place] Comment on above: Performed By: #### C BC, ADIFF, ANEU, APTT #### [place] [id number] Platelets (Bld) [#/Vol] 307 10 3/mcL Normal 150-450 [facility] ([place] Comment on above: Performed By: #### C BC, ADIFF, ANEU, APTT #### [address] [address] RBC (Bld) [#/Vol] 4.45 10 6/mcL Normal 4.10-5.30 [facility] ([place]) Comment on above: Performed By: #### C BC, ADJUANI ANEU, APTT #### [address] [address] WBC (Bld) [#/Vol] 6.10 10 3/mcL Normal 4.50-10.80 [facility] ([place]) Comment on above: Performed By: #### C BC, ADJUANI, ANEU, APTT #### [address] [address] IR IVC FILTER PLACEMENT W/ IDEon 05-02-2019 IR IVC FILTER PLACEMENT W/GUIDE ORIGINAL Images acquired, not reported on this accession number. Normal [facility] ([place]) MGon 05-02-2019 Magnesium [Mass/Vol] 2.2 mg/dL Normal 1.6-2.4 [facility] ([place]) Comment on above: Performed By: #### C BC, MECHELLE, ANEU, APTT #### [address] [address] TROPIon 05-02-2019 Troponin I.cardiac [Mass/Vol] ng/mL Normal 0.000-0.040 [facility] ([place] Comment on above: Result Comment: Trop onin I reference ranges (02/03/14): 0.00-0.040 ng/mL Negative and non-diagnostic. >0.040 ng/mL Consistent with cardiac damage, increased clinical risk and possibility of myocardial infarction. Serial measurements, a rise & fall in test results, clinical history, appropriate symptoms and/or ECG changes may help assess possibility of [place]. *Other non-acute coronary syndrome conditions such as CHF, myocarditis, pulmonary emboli, sepsis and cardiac surgery could result in myocardial damage and increased troponin levels. Performed By: #### T SH, TROPI #### [address] [address] TSHon 05-02-2019 TSH Qn 5.500 mcIU/mL High 0.360-3.740 [facility] ([place]) Comment on above: Performed By: #### T SH, TROPI #### [facility] [address] [place], [place] [address] (serum)on 12-09-19 18 Test (serum) Negative Normal Negative [facility] Comment on above: Performed By: #### U MIC1 ####[address] [address] Acetm Level W/ doseon 2016 Acetaminophen mass conc 0.0 ug/mL Low 10.0-30.0 [facility] Comment on above: Performed By: #### A CETM ####[address] [address] Last dose at [employer]OUND TRANSPORTATION OPERATOR Normal [facility] Comment on above: Performed By: #### A CETM ####[address] [address] Performed By: #### S ALIC ####[address] [address] CBC w/Auto Differentialon Anemia [employer]OUND [employer]SPORTATION OPERATOR Normal [facility] Comment on above: Performed By: #### C BC ####[address] [address] Anisocytosis presence [employer]OUND TRANSPORTATION OPERATOR Normal [facility] Comment on above: Performed By: #### C BC ####[address] [address] Basophils Abs. # 0.0 K/uL Normal 0.0-0.1 [facility] Comment on above: Performed By: #### C BC ####[address] [address] Basophils/100 WBC Auto (Bld) 1.1 % High 0.2-1.0 [facility] Comment on above: Performed By: #### C BC ####[address] [address] Basophils/100 WBC Auto (Bld) [employer]OUND [employer]SPORTATION OPERATOR Normal [facility] Comment on above: Performed By: #### C BC ####[address] [address] Bosophillia # [employer]OUND TRANSPORTATION OPERATOR Normal [facility] Comment on above: Performed By: #### C BC ####[address] [address] Eosinophils GROUND TRANSPORTATION OPERATOR Normal [facility] Comment on above: Performed By: #### C BC ####[address] [address] Eosinophils 0.0 10*3/uL Normal 0.0-0.2 [facility] Comment on above: Performed By: #### C BC ####[address] [address] Eosinophils/100 leukocytes GROUND TRANSPORTATION OPERATOR Normal [facility] Comment on above: Performed By: #### C BC ####[address] [address] Eosinophils/100 leukocytes 0.6 % Low 0.9-2.9 [facility] Comment on above: Performed By: #### C BC ####[address] [address] Erythocytosis GROUND TRANSPORTATION OPERATOR Normal [facility] Comment on above: Performed By: #### C BC ####[address] [address] Erythrocyte distribution width Auto Ratio (RBC) 13.9 % Normal 11.5-14.5 [facility] Comment on above: Performed By: #### C BC ####[address] [address] Erythrocytes (RBC) 4.35 10*6/uL Normal 3.83-5.19 [facility] Comment on above: Performed By: #### C BC ####[address] [address] Hematocrit (HCT) 41.7 % Normal 33.4-46.0 [facility] Comment on above: Performed By: #### C BC ####[address] [address] Hemoglobin mass conc (Bld) 14.1 g/dL High 11.1-13.7 [facility] Comment on above: Performed By: #### C BC ####[address] [address] Hypochromia GROUND [employer]SPORTATION OPERATOR Normal [facility] Comment on above: Performed By: #### C BC ####[address] [address] Large Platelets GROUND TRANSPORTATION OPERATOR Normal [facility] Comment on above: Performed By: #### C BC ####[address] [address] Leukocytosis GROUND TRANSPORTATION OPERATOR Normal [facility] Comment on above: Performed By: #### C BC ####[address] [address] Leukopenia GROUND TRANSPORTATION OPERATOR Normal [facility] Comment on above: Performed By: #### C BC ####[address] [address] Lymphocytes GROUND TRANSPORTATION OPERATOR Normal [facility] Comment on above: Performed By: #### C BC ####[address] [address] Lymphocytes 1.1 10*3/uL Low 1.3-2.9 [facility] Comment on above: Performed By: #### C BC ####[address] [address] Lymphocytes/100 leukocytes 24.2 % Normal 17.0-45.5 [facility] Comment on above: Performed By: #### C BC ####[address] [address] Lymphocytes/100 leukocytes GROUND TRANSPORTATION OPERATOR Normal [facility] Comment on above: Performed By: #### C BC ####[address] [address] Macrocytosis GROUND TRANSPORTATION OPERATOR Normal [facility] Comment on above: Performed By: #### C BC ####[address] [address] MCH 32.3 pg High 27.0-31.0 [facility] Comment on above: Performed By: #### C BC ####[address] [address] MCHC mass conc (RBC) 33.8 g/dL Normal 33.0-37.0 [facility] Comment on above: Performed By: #### C BC ####[address] [address] MCV 95.7 fL Normal 81.0-99.0 [facility] Comment on above: Performed By: #### C BC ####[address] [address] Microcytosis GROUND TRANSPORTATION OPERATOR Normal [facility] Comment on above: Performed By: #### C BC ####[address] [address] Monocytes 0.3 10*3/uL Normal 0.3-0.8 [facility] Comment on above: Performed By: #### C BC ####[address] [address] Monocytes/100 leukocytes 6.1 % Normal 5.5-11.7 [facility] Comment on above: Performed By: #### C BC ####[address] [address] Monocytosis % GROUND TRANSPORTATION OPERATOR Normal [facility] Comment on above: Performed By: #### C BC ####[address] [address] Neutropenia # GROUND TRANSPORTATION OPERATOR Normal [facility] Comment on above: Performed By: #### C BC ####[address] [address] Neutropenia % GROUND TRANSPORTATION OPERATOR Normal [facility] Comment on above: Performed By: #### C BC ####[address] [address] Neutrophilia % GROUND TRANSPORTATION OPERATOR Normal [facility] Comment on above: Performed By: #### C BC ####[address] [address] Neutrophils GROUND TRANSPORTATION OPERATOR Normal [facility] Comment on above: Performed By: #### C BC ####[address] [address] Neutrophils Abs. # 3.0 K/uL Normal 2.2-4.8 [facility] Comment on above: Performed By: #### C BC ####[address] [address] Neutrophils/100 WBC Auto (Bld) 68.0 % High 43.0-65.0 [facility] Comment on above: Performed By: #### C BC ####[address] [address] NRBC % 0.0 % Normal [facility] Comment on above: Performed By: #### C BC ####[address] [address] NRBC Abs. # 0.0 K/uL Normal [facility] Comment on above: Performed By: #### C BC ####[address] [address] Pancytopenia GROUND TRANSPORTATION OPERATOR Normal [facility] Comment on above: Performed By: #### C BC ####[address] [address] Platelet mean volume (PMV) 8.6 fL Normal 7.4-10.4 [facility] Comment on above: Performed By: #### C BC ####[address] [address] Platelets 235 10*3/uL Normal 148-402 [facility] Comment on above: Performed By: #### C BC ####[address] [address] Poikilocytosis GROUND TRANSPORTATION OPERATOR Normal [facility] Comment on above: Performed By: #### C BC ####[address] [address] Small Platelets GROUND TRANSPORTATION OPERATOR Normal [facility] Comment on above: Performed By: #### C BC ####[address] [address] Thrombocytopenia GROUND TRANSPORTATION OPERATOR Normal [facility] Comment on above: Performed By: #### C BC ####[address] [address] Thrombocytopenia. GROUND TRANSPORTATION OPERATOR Normal [facility] Comment on above: Performed By: #### C BC ####[address] [address] Thrombocytosis GROUND TRANSPORTATION OPERATOR Normal [facility] Comment on above: Performed By: #### C BC ####[address] [address] WBC (Leukocytes) 4.4 10*3/uL Normal 3.6-10.8 [facility] Comment on above: Performed By: #### C BC ####[address] [address] Comprehensive Metabolic Pane carlos 03-31-2017 Alanine aminotransferase (ALT) 26 U/L Normal 13-66 [facility] Comment on above: Performed By: #### C MP ####[address] [address] Albumin 4.5 g/dL Normal 3.4-5.0 [facility] Comment on above: Performed By: #### C MP ####[address] [address] Albumin/Globulin Ratio 1.4 {ratio} Normal 1.1-2.5 [facility] Comment on above: Performed By: #### C MP ####[address] [address] Alkaline phosphatase (ALP) 50 U/L Low 54-112 [facility] Comment on above: Performed By: #### C MP ####[address] [address] Anion gap 14.3 mmol/L Normal 8.0-16.0 [facility] Comment on above: Result Comment: CO RRECTED REPORT: Previous result was 15.1 at 12:14 on 03/31/17 Performed By: #### C MP ####[address] [address] Aspartate aminotransferase (AST) 15 U/L Normal 3-39 [facility] Comment on above: Performed By: #### C MP ####[address] [address] Bilirubin Ql (U) 0.48 mg/dL Normal 0.00-0.99 [facility] Comment on above: Performed By: #### C MP ####[address] [address] BUN/Creatinine Ratio 9 mg/mg Normal 6-20 [facility] Comment on above: Performed By: #### C MP ####[address] [address] Calcium 9.1 mg/dL Normal 8.2-10.0 [facility] Comment on above: Performed By: #### C MP ####[address] [address] Chloride 106 mmol/L Normal 94-110 [facility] Comment on above: Performed By: #### C MP ####[address] [address] CO2 27 mmol/L Normal 21-34 [facility] Comment on above: Performed By: #### C MP ####[address] [address] Creatinine 0.70 mg/dL Normal 0.51-0.95 [facility] Comment on above: Performed By: #### C MP ####[address] [address] eGFR (black) mL/min/{1.73_m2} Normal >60 [facility] Comment on above: Result Comment: Lace Burn Out Tender kelly Kidney Disease less than 60 mL/min/1.73 [id number] Failure less than 15 mL/min/1.73 [id number] estimated GFR by age:20-29 years 116 mL/min/1.73 m2 Performed By: #### C MP ####[address] [address] eGFR (non-black) mL/min/{1.73_m2} Normal >60 [facility] Comment on above: Performed By: #### C MP ####[address] [address] Globulin 3.2 g/dL Normal 1.5-4.5 [facility] Comment on above: Performed By: #### C MP ####[facility] [place], [place] [address] Glucose mass conc 94 mg/dL Normal 65-100 [facility] Comment on above: Performed By: #### C MP ####[facility] [place], [place] [address] Potassium molar conc 3.3 mmol/L Normal 3.3-5.1 [facility] Comment on above: Performed By: #### C MP ####[facility] [place], [place] [address] Protein 7.7 g/dL Normal 6.1-8.2 [facility] Comment on above: Performed By: #### C MP ####[facility] [place], [place] [address] Sodium 144 mmol/L Normal 132-145 [facility] Comment on above: Performed By: #### C MP ####[facility] [place] [address] Urea nitrogen 6.2 mg/dL Normal 3.2-26.9 [facility] Comment on above: Performed By: #### C MP ####[facility] [place], [place] [address] EMERGENCY DEPARTMENTon 03-31 EMERGENCY DEPARTMENT [address] [address] HEALTH INFORMATION MANAGEMENT EMERGENCY DEPARTMENT : [id number] Signed Patient: PRANEETH PORRAS Acct:[id number] MRUN: [id number] : 1990 Sex: F Loc: ED ADM Date: 03/31/17 Room/Bed: DISC Date: History of Present Illness - General Chief Complaint: Evaluation Stated Complaint: SUICIDAL THOUGHTS Symptom onset: TODAY HPI: PT STATES THAT HER HAS LEFT HER AND THAT SHE CANNOT BE A SINGLE MOM. PT STATES SHE DROPPED HER CHILDREN OFF AT THE FATHERS HOUSE. PT STATES SHE IS HAVING SUICIDAL IDEATION AND HER PLAN IS TO TURN HER CAR ON AND HAVE A HOSE RUN RUN FROM THE [place]HA[place] AND LISTEN TO MUSIC AND . PT STATES SHE HEARS VOICES WHEN SHE IS ALONE. PT HAS SCARS FROM PRIOR SELF HARM AND SUICIDE ATTEMPTS. PT IS BROUGHT IN WITH FORMER FOSTER MOTHER Time Seen by Provider: 03/31/17 11:35 Nurses Notes Reviewed and Agreed With?: Yes Source: Patient Mode of Transport: Ambulatory Who is the Attending Physician?: TAMI HALL Is This The Back Up Physician?: Yes - History of Present Illness Initial Comments: 26-year-old female with suicidal ideation. Patient with moderate depression as result of her leaving her. States she does not want to be a single mother. Patient states she has 2 children which she dropped off to her ex-'s home. States she plans on killing herself by carbon monoxide poisoning. Using a car. She states she has been admitted for suicidal ideation in the past. She also has a history of self-mutilation. Denies any current drugs or alcohol use MD Complaint: suicidal ideation, feels depressed Onset/Timin -: days(s) Associated Psychiatric Symptoms: depression, anxiety, suicidal ideation, auditory hallucinations, unclear thinking History of same: depression, anxiety, suicide attempt Quality: constant Improves With: none Worsens With: none Context: divorce. denies: recent alcohol abuse, recent drug abuse, not taking psychiatric medications Associated Symptoms: denies other symptoms Treatments Prior to Arrival: none If Self Harm: admits thoughts of self harm, has plan - Related Data Home Medications Medication Instructions Recorded Confirmed Ciprofloxacin HCl [Cipro] 500 mg PO BID #14 tablet 03/27/17 03/31/17 Ondansetron [Zofran 4 mg 4 mg PO Q8H PRN #20 tab.rapdis 03/27/17 03/31/17 Disintegrating Tablet] Allergies Allergy/AdvReac Type Severity Reaction Status Date / Time No Known Allergies Allergy Unverified 03/27/17 20:25 Home medications and allergies reviewed: Yes Review of System - Constitutional Constitutional: Present: see HPI, Well developed, Well nourished, Non-toxic, other (depression/suicidal ideation) - Nose,Throat,Mouth Nose (ROS): Present: no symptoms reported. Absent: pain Throat: Present: no symptoms reported. Absent: pain, swelling, discharge Mouth: Present: no symptoms reported. Absent: pain, swelling - Respiratory Respiratory: Absent: cough, short of breath, wheezing - CV Cardiology: Absent: chest pain, edema - GI Gastrointestinal/Abdom inal: Absent: abdominal pain, diarrhea, nausea, vomiting - Genitourinary Symptoms: Absent: dysuria - Neuro Neurological: Absent: headache, weakness - Muskuloskeletal Musculoskeletal: Absent: back pain, joint pain, joint swelling - Integumentary Skin: Absent: lesions, rash - Hematologic Hematologic/Lymphatic: Absent: easy bleeding, easy bruising, swollen glands - Endocrine Endocrine: Present: no symptoms reported - Psychiatric Psychiatric: Present: SEE HPI, Normal Mood, Anxious, Flat, Tearful, Poor Eye Contact, Withdrawn, Suicidal Plan, Suicidal Thoughts, Auditory Hallucinations. Absent: Depressed - All Others/Exceptions All Other Systems: Reviewed and Negative Except Where Noted in Documentation ED PMH/Social HX/Family HX - Respiratory Hx Respiratory Disorders: No - Cardiovascular Hx Cardiac Disorders: No - Neurological Hx Neurological Disorder: No - Endocrine Hx Endocrine Disorders: No - Gastrointestinal Hx Gastrointestinal Disorders: No - Genitourinary Hx Genitourinary Disorders: No - Musculoskeletal Hx Musculoskeletal Disorders: No - Reproductive ?: No - Psychological PMH--Psychological Treatments: Anxiety, Depression, Psychiatric Treatment, Suicide Attempts - HEENT Hx Ear, Nose Throat Disorders: Yes Other HEENT PSH: partial deaf since - Cancer Hx Cancer: Yes Other CA PSH: lumpectomy - Immunizations Hx Tetanus, Diphtheria Vaccination: Yes Hx Influenza Vaccination: No Hx Pneumococcal Vaccination: No - Social History Highest Educational Level: Elementary School Able to Read: Yes Able to Write: Yes Smoking Status: Never Smoked Hx Chewing Tobacco Use: No Alcohol Use: Never Any recreational drug use reported?: No Hx Substance Use Treatment: No Feels Threatened In Home Environment: No Feels Threatened In a Relationship: No Hx Physical Abuse: No Hx Emotional Abuse: No Hx Suspected Abuse: No Mental Health Assessment - Safety Measures Suicide Risk Degree: Moderate Remains Under Direct Supervision by:: Nurses Jonnathan senior called: No Fixture Builder office called R/T patient behavior: No [place]geon slip/Writ of prison: No - Behavior Assessment Patient Appearance: Disheveled Patient Behavior: Appropriate, Anxious, Crying Age Appropriate Behavior/Response: Yes Affect Description: Calm, Depressed, Fearful, Sad Voice Loudness: Normal Speech Pattern: Complains of: Clear Eye Contact: Minimal Interaction with Staff: Minimal Thought Process: Complains of: Intact, Circumstantial Hallucination Type: Auditory Delusion Description: Not Present Impulse Control Description: Good - Anxiety Assessment Anxiety Level: Mild Precipitating Stress Factors: Situational Crisis, Divorce General Exam - General Limitations: Complains of: no limitations Constitutional: Present: see HPI, Well developed, Well nourished, well hydrated, Non-toxic, other (depressed/suicidal ideation) - Head Head exam: Present: atraumatic, normocephalic, normal inspection - Eye Eye exam: Present: normal apperance, normal accomodation, EOMI Pupils: Present: PERRL - Neck Neck exam: Present: full ROM, Supple. Absent: tenderness, meningismus, Posterior Lymphadenopathy, Anterior Lymphadenopathy - Respiratory Respiratory exam: Present: lungs clear equal bilaterally. Absent: respiratory distress, wheezes, rales, rhonchi, accessory muscle use - Cardiovascular Cardiovascular Exam: Present: regular rate, normal rhythm, normal heart sounds. Absent: murmur, rubs, gallop, clicks - GI/Abdominal GI/Abdominal exam: Present: soft, non tender, normal bowel sounds. Absent: guarding, rebound, rigid, mass, bruit - Extremities Exam Extremities exam: Present: normal inspection, full ROM, neurovascularly intact - Back Exam Back exam: Present: normal inspection, full ROM. Absent: tenderness - Neurological Exam Neurological exam: Present: alert, oriented X3, CN II-XII intact - Psychiatric Psychiatric exam: Present: normal mood, depressed, anxious, suicidal ideation - Skin Skin Color: Present: Normal, Sturgeon Skin exam: Present: warm, dry - Vital Signs Vital Signs 03/31/17 03/31/17 03/31/17 11:25 12:51 14:50 Temperature 98.6 F Pulse Rate [ 120 H 64 86 Pulse Ox] Respiratory 22 H 20 20 Rate Blood Pressure 134/74 118/70 102/62 [Left Arm] O2 Sat by Pulse 98 98 99 Oximetry(%) 03/31/17 16:15 Temperature 98.6 F Pulse Rate [ 76 Pulse Ox] Respiratory 20 Rate Blood Pressure 120/60 [Left Arm] O2 Sat by Pulse 98 Oximetry(%) Course - Reevaluation(s) Reevaluation #1: 03/31/17 13:20 urine and labs obtained prior to screening. Case management to screening patient for suicidal ideation and possible admission. Mental Health [facility] - Lab Data Result diagrams: 03/31/17 11:53 03/31/17 11:53 Lab Results 03/31/17 03/31/17 03/31/17 Range/Units 11:53 11:53 12:00 WBC 4.4 (3.6-10.8) K/uL RBC 4.35 (3.83-5.19) M/uL Hgb 14.1 H (11.1-13.7) g/dL Hct 41.7 (33.4-46.0) % MCV 95.7 (81.0-99.0) fL MCH 32.3 H (27.0-31.0) pg MCHC 33.8 (33.0-37.0) g/dL RDW 13.9 (11.5-14.5) % Plt Count 235 (148-402) K/uL MPV 8.6 (7.4-10.4) fL Neut % 68.0 H (43.0-65.0) % Lymph % 24.2 (17.0-45.5) % [place] % 6.1 (5.5-11.7) % Eos % 0.6 L (0.9-2.9) % Baso % 1.1 H (0.2-1.0) % Absolute Neuts (auto) 3.0 (2.2-4.8) K/uL Absolute Lymphs (auto) 1.1 L (1.3-2.9) K/uL Absolute Monos (auto) 0.3 (0.3-0.8) K/uL Absolute Eos (auto) 0 (0.0-0.2) K/uL Absolute Basos (auto) 0 (0.0-0.1) K/uL Nucleated RBC % 0 % Nucleated RBCs # 0 K/uL Sodium 144 (132-145) mmol/L Potassium 3.3 (3.3-5.1) mmol/L Chloride 106 (94-110) mmol/L Total Carbon Dioxide 27 (21-34) mmol/L Anion Gap 14.3 (8.0-16.0) mmol/L BUN 6.2 (3.2-26.9) mg/dL Creatinine 0.70 (0.51-0.95) mg/dL Est GFR (MDRD) Af Amer > 60 (>60) Est GFR (MDRD) Non-Af > 60 (>60) BUN/Creatinine Ratio 9 (6-20) Glucose 94 (65-100) mg/dL Specific [place] 1.020 (1.015-1.025) Calcium 9.1 (8.2-10.0) mg/dL Total Bilirubin 0.48 (0.00-0.99) mg/dL AST 15 (3-39) U/L ALT 26 (13-66) U/L Alkaline Phosphatase 50 L (54-112) U/L Total Protein 7.7 (6.1-8.2) g/dL Albumin 4.5 (3.4-5.0) g/dL Globulin 3.2 (1.5-4.5) g/dL Albumin/Globulin Ratio 1.4 (1.1-2.5) Urine pH 5.0 (5.0-8.0) Urine Test (Negative) Salicylates < 2.8 (2.8-20.0) mg/dL Opiates Screen Negative ng/mL Acetaminophen 0 L (10.0-30.0) ug/mL Ur Barbiturates Screen Negative ng/mL Phencyclidine Screen Negative ng/mL Amphetamines Screen Negative ng/mL Benzodiazepines Screen Negative ng/mL Cocaine Screen Negative ng/mL Marijuana (THC) Screen Positive A ng/mL Ur Drug Screen Comment - Ethyl Alcohol < 3.0 (0.0-0.0) mg/dL 03/31/17 Range/Units 12:00 WBC (3.6-10.8) K/uL RBC (3.83-5.19) M/uL Hgb (11.1-13.7) g/dL Hct (33.4-46.0) % MCV (81.0-99.0) fL MCH (27.0-31.0) pg MCHC (33.0-37.0) g/dL RDW (11.5-14.5) % Plt Count (148-402) K/uL MPV (7.4-10.4) fL Neut % (43.0-65.0) % Lymph % (17.0-45.5) % [place] % (5.5-11.7) % Eos % (0.9-2.9) % Baso % (0.2-1.0) % Absolute Neuts (auto) (2.2-4.8) K/uL Absolute Lymphs (auto) (1.3-2.9) K/uL Absolute Monos (auto) (0.3-0.8) K/uL Absolute Eos (auto) (0.0-0.2) K/uL Absolute Basos (auto) (0.0-0.1) K/uL Nucleated RBC % % Nucleated RBCs # K/uL Sodium (132-145) mmol/L Potassium (3.3-5.1) mmol/L Chloride (94-110) mmol/L Total Carbon Dioxide (21-34) mmol/L Anion Gap (8.0-16.0) mmol/L BUN (3.2-26.9) mg/dL Creatinine (0.51-0.95) mg/dL Est GFR (MDRD) Af Amer (>60) Est GFR (MDRD) Non-Af (>60) BUN/Creatinine Ratio (6-20) Glucose (65-100) mg/dL Specific [place] (1.015-1.025) Calcium (8.2-10.0) mg/dL Total Bilirubin (0.00-0.99) mg/dL AST (3-39) U/L ALT (13-66) U/L Alkaline Phosphatase (54-112) U/L Total Protein (6.1-8.2) g/dL Albumin (3.4-5.0) g/dL Globulin (1.5-4.5) g/dL Albumin/Globulin Ratio (1.1-2.5) Urine pH (5.0-8.0) Urine Test Negative (Negative) Salicylates (2.8-20.0) mg/dL Opiates Screen ng/mL Acetaminophen (10.0-30.0) ug/mL Ur Barbiturates Screen ng/mL Phencyclidine Screen ng/mL Amphetamines Screen ng/mL Benzodiazepines Screen ng/mL Cocaine Screen ng/mL Marijuana (THC) Screen ng/mL Ur Drug Screen Comment Ethyl Alcohol (0.0-0.0) mg/dL Orders: Labs 03/31/17 11:53 Acetaminophen Level [CHM] Stat CBC w/Auto Differential [HEM] Stat Comprehensive Metabolic Panel [CHM] Stat Ethanol (Medical) [CHM] Stat Salicylate Level [CHM] Stat 03/31/17 12:00 (Urine) [IMM] Stat 03/31/17 12:48 Urine Drug Screening [CHM] Stat - Medical Decision Making 26-year-old female with a history of depression, presenting with homicidal ideation and plan. Drug and alcohol screen were both negative. The patient evaluated by [facility] and plan is to admit for further psychiatric evaluation. No cyst, depression number. 2. Suicidal ideation - Differential Diagnosis Mental Health Differential Dx: Considered: depression, suicidal ED Discharge Summary - Discharge Data Clinical Impression: Depression, Suicidal ideation Condition: Fair Disposition: 65 XFER TO PSYCH HOSP/UNIT Referrals: PHYSICIAN,UNASSIGNED [Primary Care Provider] - Home Medications: Ambulatory Orders Medication Instructions Recorded Ciprofloxacin HCl [Cipro] 500 mg PO BID #14 tablet 03/27/17 Ondansetron [Zofran 4 mg 4 mg PO Q8H PRN #20 tab.rapdis 03/27/17 Disintegrating Tablet] Home medications and allergies reviewed: Yes Time Seen by Provider: 03/31/17 11:35 - Consultation I saw and examined the patient: Yes Nurses Notes Reviewed and Agreed With?: Yes - Dictation Amendments/Documentati on: AOI Medical Document Only Electronically Generated By: DANIAL ENRIQUEZ DO Generated Date/Time: 03/31/17 1314 Electronically Signed By: DANAIL ENRIQUEZ DO Signed Date/Time 03/31/17 1648 Co Signed Electronically By: Co Signed Date/Time: CC: TAMI HALL ; PHYSICIAN, UNASSIGNED Normal [facility] Ethanol (Medical)on 03-31-20 17 Ethanol mg/dL Normal 0.0-0.0 [facility] Comment on above: Performed By: #### A ####[place] [address] (Urine)on 03-31-20 17 HCG ( test) Ql (U) Negative Normal Negative [facility] Comment on above: Performed By: #### U MIC1 ####[address] [address] Salic Level W/ doseon 2016 Salicylate <2.8 Normal 2.8-20.0 [facility] Comment on above: Performed By: #### S ALIC ####[address] [address] Urine Drug Screeningon 03-31 Amphetamines Negative [facility] Comment on above: Order Comment: Drug Screen Comment No Result Comment: cuto ff 1000 ng/mL Performed By: #### U MIC1 ####[address] [address] Barbiturates Negative [facility] Comment on above: Order Comment: Drug Screen Comment No Result Comment: cuto ff 200 ng/mL Performed By: #### U MIC1 ####[address] [address] Benzodiazepines Negative [facility] Comment on above: Order Comment: Drug Screen Comment No Result Comment: cuto ff 200 ng/mL Performed By: #### U MIC1 ####[address] [address] Cocaine Negative [facility] Comment on above: Order Comment: Drug Screen Comment No Result Comment: cuto ff 300 ng/mL Performed By: #### U MIC1 ####[address] [address] Opiates Negative [facility] Comment on above: Order Comment: Drug Screen Comment No Result Comment: cuto ff 300 ng/mL Performed By: #### U MIC1 ####[address] [address] pH 5.0 Normal 5.0-8.0 [facility] Comment on above: Order Comment: Drug Screen Comment No Performed By: #### U MIC1 ####[address] [address] Phencyclidine Negative Normal [facility] Comment on above: Order Comment: Drug Screen Comment No Result Comment: cuto ff 25 ng/mL Performed By: #### U MIC1 ####[place] [id number] Specific [place] 1.020 Normal 1.015-1.025 [facility] Comment on above: Order Comment: Drug Screen Comment No Performed By: #### U MIC1 ####[place] [address] THC Positive Abnormal [facility] Comment on above: Order Comment: Drug Screen Comment No Result Comment: cuto ff 50 ng/mL Performed By: #### U MIC1 ####[address] [address] - - Normal [facility] Comment on above: Order Comment: Drug Screen Comment No Result Comment: .Albert linder Screen Comment:This assay provides a preliminary unconfirmed analytical testresult that may be suitable for the clinical management of patientsin certain situations. Some ywnw-xeb-kweeiox medications, aswell as adulterants, may cause inaccurate results. Screen onlytesting does not meet the [facility] Forensic Urine Drug TestingProgram requirements as a forensic urine drug test for workplacetesting. . Performed By: #### U MIC1 ####[address] [address] [address] BRAIN WOon 03-28-2017 CT BRAIN WO HISTORY: RFE: headacheCOMPARISON: None.TECHNIQUE: Contiguous unenhanced axial CT images were obtained through thebrain. Sagittal and coronal reformats were performed.FINDINGS: No extraaxial fluid collection or midline shift is seen. Thegray/white matter differentiation is maintained. The ventricles appear normalin caliber and configuration. No acute abnormality of the posterior fossa isidentified.The included paranasal sinuses and mastoid air cells are clear. No depressedskull fracture is seen.IMPRESSION: No acute intracranial abnormality seen. If neurological symptomspersist or there is continued clinical concern, consider short-term followupevaluation with repeat CT or MRI. Electronically Signed by Kunal Maria03/28/2017 06:56 Normal [facility] EMERGENCY DEPARTMENTon 03-28 EMERGENCY DEPARTMENT [address] [address] HEALTH INFORMATION MANAGEMENT EMERGENCY DEPARTMENT : [id number] Signed Patient: PRANEETH PORRAS Acct:[id number] MRUN: [id number] : 1990 Sex: F Loc: ED ADM Date: 03/27/17 Room/Bed: DISC Date: 03/27/17 History of Present Illness - General Chief Complaint: Headache Stated Complaint: NAUSEA HEADACHE X 3 DAYS Symptom onset: 03/24/17 HPI: nausea and headache for 3 days Time Seen by Provider: 03/27/17 20:18 Nurses Notes Reviewed and Agreed With?: Yes Source: Patient Mode of Transport: Ambulatory Who is the Attending Physician?: RENÉ LUCIANO Is This The Back Up Physician?: No - History of Present Illness Initial Comments: 26-year-old female presents today with nausea and headache. She states her transparency. Denies any urinary concerns. States no abdominal back pain. Denies first headache of life. States no vomiting. Denies diarrhea. States no neck pain. She denies injury. States no other concerns at this time. MD Complaint: headache Onset/Timin -: days(s) Onset Description: gradual Location: right, left, frontal Severity scale (1-10): Denies Pain Quality: aching Consistency: constant Improves With: nothing Worsens With: none Context: occured at rest Associated Symptoms: nausea. denies: fever, vomiting, neck stiffness, photophobia, sensitivity to sound, syncope, vision loss, scotoma, tingling/numbess, confusion, weakness Treatments Prior to Arrival: none - Related Data On Control: No Home Medications Medication Instructions Recorded Confirmed Ciprofloxacin HCl [Cipro] 500 mg PO BID #14 tablet 03/27/17 Ondansetron [Zofran 4 mg 4 mg PO Q8H PRN #20 tab.rapdis 03/27/17 Disintegrating Tablet] Allergies Allergy/AdvReac Type Severity Reaction Status Date / Time No Known Allergies Allergy Unverified 03/27/17 20:25 Home medications and allergies reviewed: Yes Review of System - Constitutional Constitutional: Present: Well developed, Well nourished, Non-toxic - Nose,Throat,Mouth Nose (ROS): Absent: pain Throat: Absent: pain, swelling, discharge Mouth: Absent: pain, swelling - Respiratory Respiratory: Absent: cough, short of breath, wheezing - CV Cardiology: Absent: chest pain, edema - GI Gastrointestinal/Abdom inal: Absent: abdominal pain, diarrhea, nausea, vomiting - Genitourinary Symptoms: Absent: dysuria - Neuro Neurological: Present: headache. Absent: depressed, emotional problems, numbness, paresthesia, pre-existing deficit, seizure, tingling, tremors, weakness, saddle anesthesia - Muskuloskeletal Musculoskeletal: Absent: back pain, joint pain, joint swelling - Integumentary Skin: Absent: lesions, rash - Allergic/Immunologic Immunological/Allergic : Present: no symptoms reported - Hematologic Hematologic/Lymphatic: Absent: easy bleeding, easy bruising, swollen glands - Endocrine Endocrine: Present: no symptoms reported - Psychiatric Psychiatric: Present: Normal Affect, Normal Mood. Absent: Depressed - All Others/Exceptions All Other Systems: Reviewed and Negative Except Where Noted in Documentation ED PMH/Social HX/Family HX - Respiratory Hx Respiratory Disorders: No - Cardiovascular Hx Cardiac Disorders: No - Neurological Hx Neurological Disorder: No - Endocrine Hx Endocrine Disorders: No - Gastrointestinal Hx Gastrointestinal Disorders: No - Genitourinary Hx Genitourinary Disorders: No - Musculoskeletal Hx Musculoskeletal Disorders: No - Reproductive ?: No - Psychological Hx Psychosocial Problems: No - HEENT Hx Ear, Nose Throat Disorders: Yes Other HEENT PSH: partial deaf since - Cancer Hx Cancer: Yes PMH--Cancer: Breast Other CA PSH: lumpectomy - Communicable Diseases Recent Exposure to Communicable Diseases: No - Immunizations Hx Tetanus, Diphtheria Vaccination: Yes Hx Influenza Vaccination: No Hx Pneumococcal Vaccination: No - Other No Significant Past Medical History: No - Social History Marital Status: Lives with: Family Highest Educational Level: Elementary School Able to Read: Yes Able to Write: Yes Smoking Status: Never Smoked Smoked in Last year: No Any Secondhand smoke exposure Reported?: No Hx Chewing Tobacco Use: No Alcohol Use: Never Any recreational drug use reported?: No Hx Substance Use Treatment: No Feels Threatened In Home Environment: No Feels Threatened In a Relationship: No Hx Physical Abuse: No Hx Emotional Abuse: No Hx Suspected Abuse: No General Exam - General Limitations: Complains of: no limitations Constitutional: Present: Well developed, Well nourished, well hydrated, Non-toxic - Head Head exam: Present: atraumatic, normocephalic, normal inspection - Eye Eye exam: Present: normal apperance, normal accomodation, EOMI. Absent: scleral icterus, conjunctival injection, nystagmus, periorbital swelling, periorbital tenderness, papilledema Pupils: Present: PERRL - ENT ENT exam: Present: normal orophraynx, mucous membranes moist, TMs clear w/ good light reflex, normal external ear exam, No Nasal Discharge, Posterior Pharynx Non-erethemetous - Expanded ENT Exam Ear exam: Present: normal external inspection Mouth exam: Present: normal external inspection Teeth exam: Present: normal inspection Throat exam: normal inspection - Neck Neck exam: Present: full ROM, Supple. Absent: tenderness, meningismus, Posterior Lymphadenopathy, Anterior Lymphadenopathy - Respiratory Respiratory exam: Present: lungs clear equal bilaterally. Absent: respiratory distress, wheezes, rales, rhonchi, accessory muscle use - Cardiovascular Cardiovascular Exam: Present: regular rate, normal rhythm, normal heart sounds. Absent: murmur, rubs, gallop, clicks - GI/Abdominal GI/Abdominal exam: Present: soft, non tender, normal bowel sounds, equal femoral pulses. Absent: distended, guarding, rebound, rigid, diminished bowel sounds, hyperactive bowel sounds, hypoactive bowel sounds, organomegaly, mass, bruit, pulsatile mass, hernia, tenderness, gravid state - Extremities Exam Extremities exam: Present: normal inspection, neurovascularly intact, full ROM, normal muscle strength, normal reflexes, normal/equal pulses. Absent: calf tenderness, joint swelling, pedal edema, tenderness - Back Exam Back exam: Present: normal inspection, full ROM. Absent: tenderness - Neurological Exam Neurological exam: Present: alert, oriented X3, CN II-XII intact, normal gait, reflexes normal. Absent: altered, abnormal gait, motor sensory deficit - Expanded Neurological Exam Patient oriented to: Present: person, place, time Speech: Present: fluid speech - Psychiatric Psychiatric exam: Present: normal affect, normal mood - Skin Skin Color: Present: Normal, [place] Skin exam: Present: warm, dry - Expanded Skin Exam Type of lesion: Absent: rash - Vital Signs Vital Signs 03/27/17 03/27/17 20:19 21:18 Temperature 99.1 F 99.5 F Pulse Rate [ 79 72 Pulse Ox] Respiratory 18 20 Rate Blood Pressure 159/95 H 127/85 [Right Arm Lying] O2 Sat by Pulse 100 100 Oximetry(%) Medical Decision Making - Lab Data Lab Results 03/27/17 03/27/17 03/27/17 Range/Units 00:00 20:38 20:38 Urine Color Red. A (Yellow) Urine Appearance bloody (Clear) Urine pH 5 Ur Specific [place] 1.025 (1.015-1.025) Urine Protein 1+ A (Negative) Urine Ketones 1+ A (Negative) Urine Blood 250 A (Negative) Urine Nitrite Positive A (Negative) Urine Bilirubin 1+ A (Negative) Urine Urobilinogen 1 (Normal-1.0) mg/dL Ur Leukocyte Esterase 2+ A (Negative) Urine RBC Tntc (0 - 2) /hpf Urine WBC Tntc (0 - 6) /hpf Ur Epithelial Cells 3-6 (0 - 6) /lpf Urine Bacteria 1+ (0 - 1+) /hpf Urine Glucose Normal (Negative) Urine Test Negative (Negative) Orders: Ciprofloxacin HCl [Cipro] 500 mg PO BID #14 tablet 03/27/17 [Rx] Ondansetron [Zofran 4 mg Disintegrating Tablet] 4 mg PO Q8H PRN #20 tab.rapdis 03/27/17 [Rx] Medications Discontinued Medications Ciprofloxacin HCl (Cipro 250 Mg Tablet) 500 mg PO ONE ONE Stop: 03/27/17 21:10 Last Admin: 03/27/17 21:27 Dose: 500 mg Ketorolac Tromethamine (Toradol 30 Mg/Ml Injection) 60 mg IM ONE ONE Stop: 03/27/17 20:23 Last Admin: 03/27/17 20:50 Dose: 60 mg Ondansetron HCl (Zofran 4 Mg Odt) 4 mg PO ONE ONE Stop: 03/27/17 20:45 Last Admin: 03/27/17 20:47 Dose: 4 mg Ondansetron HCl (Zofran 4 Mg Odt) 4 mg PO STAT STA Stop: 03/27/17 21:27 Last Admin: 03/27/17 21:27 Dose: 4 mg Orphenadrine Citrate (Norflex 60 Mg/2 Ml Injection) 60 mg IM STAT STA Stop: 03/27/17 20:23 Last Admin: 03/27/17 20:51 Dose: 60 mg Labs 03/27/17 21:04 Urine Culture (Reflex) [SCOUT] Stat 03/27/17 21:09 Ciprofloxacin HCl [Cipro 250 mg Tablet] 500 mg PO ONE ONE 03/27/17 21:26 Ondansetron [Zofran 4 mg Odt] 4 mg PO STAT STA - Radiology Data Radiology results: report reviewed, image reviewed Radiology Report: Radiology report reviewed,negative per Radiologist, Xrays interpreted by me as negative Radiology Impressions Brain CT 03/27/17 20:22 IMPRESSION: No acute intracranial abnormality seen. If neurological symptoms persist or there is continued clinical concern, consider short-term followup evaluation with repeat CT or MRI. Electronically Signed by Kunal Maria 03/28/2017 06:56 ED Discharge Summary - Discharge Data Clinical Impression: Nausea, Headache, UTI (urinary tract infection) Condition: Good Disposition: 01 HOME, SELF-CARE Admit is Medically Necessary, Anticipated Stay >2 Midnights:: No Referrals: TAMI HALL [Primary Care Provider] - Additional Instructions: FOLLOW UP WITH YOUR PCP OR THE BACK UP PHYSICIAN LISTED ON HOME GOING INSTRUCTIONS IF NOT FEELING BETTER IN 3 DAYS RETURN TO THE ED IF SYMPTOMS WORSEN OR ANY OTHER CONCERNS follow-up PCP 7-10 days for recheck urine At least one of your blood pressure readings in the Emergency Department visit today were above 120/80. You need to follow up with your Primary Care Physician/Family Doctor within the next week about your blood pressure. OARRS Report Reviewed: No Home Medications: Ambulatory Orders Medication Instructions Recorded Ciprofloxacin HCl [Cipro] 500 mg PO BID #14 tablet 03/27/17 Ondansetron [Zofran 4 mg 4 mg PO Q8H PRN #20 tab.rapdis 03/27/17 Disintegrating Tablet] Home medications and allergies reviewed: Yes Time Seen by Provider: 03/27/17 20:18 Patient seen by Midlevel: Independently - Consultation I saw and examined the patient: Yes Nurses Notes Reviewed and Agreed With?: Yes - Dictation Amendments/Documentati on: AOI Medical Document Only Electronically Generated By: GISELA HENAO PA-C Generated Date/Time: 03/27/172107 Electronically Signed By: GISELA HENAO PA-C Signed Date/Time 03/28/17 1357 Co Signed Electronically By: Co Signed Date/Time: 03/28/17190003/28/171900 CC: TAMI HALL Normal [facility] (Urine)on 03-27-20 HCG ( test) Ql (U) Negative Normal Negative [facility] Comment on above: Performed By: #### P REGU ####[address] [address] UA w/reflex cultureon 2016 Appearance bloody Normal Clear [facility] Comment on above: Performed By: #### U ARC ####[address] [address] Bilirubin 1+ Abnormal Negative [facility] Comment on above: Result Comment: ?Met abolites of etodolac or high concentration of urobilinogen may causefalse positive results. Correlate clinically.? Performed By: #### U ARC ####[address] [address] Blood 250 Abnormal Negative [facility] Comment on above: Performed By: #### U ARC ####[address] [address] Collection Type GROUND TRANSPORTATION OPERATOR Normal [facility] Comment on above: Performed By: #### U ARC ####[address], [place] [address] Color Red. Abnormal Yellow [facility] Comment on above: Result Comment: CO RRECTED REPORT: Previous result was orange at 20:53 on 03/27/17 Performed By: #### U ARC ####[address] [address] Glucose NORMAL Normal Negative [facility] Comment on above: Performed By: #### U ARC ####[address] [address] Ketones 1+ Abnormal Negative [facility] Comment on above: Performed By: #### U ARC ####[address] [address] Leukocytes Esterase 2+ Abnormal Negative [facility] Comment on above: Performed By: #### U ARC ####[address] [address] Nitrites Positive Abnormal Negative [facility] Comment on above: Result Comment: Fals e-positive readings may be produced by medications that colors the urine red or which turns the red in an acid medium. .CORRECTED REPORT: Previous result was POSITIVE at 20:53 on 03/27/17 Performed By: #### U ARC ####[address] [address] pH 5 Normal [facility] Comment on above: Performed By: #### U ARC ####[address] [address] Protein 1+ Abnormal Negative [facility] Comment on above: Performed By: #### U ARC ####[address] [address] Specific [place] 1.025 Normal 1.015-1.025 [facility] Comment on above: Performed By: #### U ARC ####[address] [place] [address] Urobilinogen 1 mg/dL Normal Normal-1.0 [facility] Comment on above: Performed By: #### U ARC ####[address] [address] Urine Microscopicon 10-30-20 17 Bacteria 1+ /hpf Normal 0 - 1+ [facility] Comment on above: Performed By: #### U MIC1 ####[address] [address] Casts GROUND TRANSPORTATION OPERATOR Normal [facility] Comment on above: Performed By: #### U MIC1 ####[address] [address] Casts. GROUND TRANSPORTATION OPERATOR Normal [facility] Comment on above: Performed By: #### U MIC1 ####[address] [address] Crystals GROUND TRANSPORTATION OPERATOR Normal [facility] Comment on above: Performed By: #### U MIC1 ####[address] [address] Crystals. GROUND TRANSPORTATION OPERATOR Normal [facility] Comment on above: Performed By: #### U MIC1 ####[address] [address] Epithelial Cells 3-6 Normal 0 - 6 [facility] Comment on above: Performed By: #### U MIC1 ####[address] [address] INR Coag RelTime (Bld) TNTC Normal 0 - 2 [facility] Comment on above: Performed By: #### U MIC1 ####[address] [address] Mucus GROUND TRANSPORTATION OPERATOR Normal [facility] Comment on above: Performed By: #### U MIC1 ####[place] [id number] [place] [address] Trichomonas GROUND TRANSPORTATION OPERATOR Normal [facility] Comment on above: Performed By: #### U MIC1 ####[facility] [place] [address] WBC TNTC Normal 0 - 6 [facility] Comment on above: Performed By: #### U MIC1 ####[address] [address] Yeast GROUND TRANSPORTATION OPERATOR Normal [facility] Comment on above: Performed By: #### U MIC1 ####[address] [address] Other GROUND TRANSPORTATION OPERATOR Normal [facility] Comment on above: Performed By: #### U MIC1 ####[address] [address] Vital Signs Date Time Vital Sign Value Performing Clinician Facility 09-24-2024 06:32-0400 Body height 160.02 cm No Primary Care Physician [facility] 09-24-2024 06:32-0400 Body mass index (BMI) [Ratio] 23 kg/m2 No Primary Care Physician [facility] 09-24-2024 06:32-0400 Body temperature 97.5 [degF] No Primary Care Physician [facility] 09-24-2024 06:32-0400 Body weight 58.9 kg No Primary Care Physician [facility] 09-24-2024 06:32-0400 Diastolic blood pressure 98 mm[Hg] No Primary Care Physician [facility] 09-24-2024 06:32-0400 Heart rate 68 /min No Primary Care Physician [facility] 09-24-2024 06:32-0400 Respiratory rate 18 /min No Primary Care Physician [facility] 09-24-2024 06:32-0400 SaO2% (BldA) [Mass fraction] 100 % No Primary Care Physician [facility] 09-24-2024 06:32-0400 Systolic blood pressure 144 mm[Hg] No Primary Care Physician [facility] 09-08-2024 13:24-0400 Body mass index (BMI) [Ratio] 22.46 kg/m2 Krislyn Aberegg PA Work Phone: [facility] 09-08-2024 13:24-0400 Body temperature 98.8 [degF] Krislyn Aberegg PA Work Phone: [facility] 09-08-2024 13:24-0400 Body weight 57.5 kg Krislyn Aberegg PA Work Phone: [facility] 09-08-2024 13:24-0400 Diastolic blood pressure 61 mm[Hg] Krislyn Aberegg PA Work Phone: [facility] 09-08-2024 13:24-0400 Heart rate 80 /min Krislyn Aberegg PA Work Phone: [facility] 09-08-2024 13:24-0400 Respiratory rate 18 /min Krislyn Aberegg PA Work Phone: [facility] 09-08-2024 13:24-0400 SaO2% (BldA) [Mass fraction] 99 % Krislyn Aberegg PA Work Phone: [facility] 09-08-2024 13:24-0400 Systolic blood pressure 96 mm[Hg] Krislyn Aberegg PA Work Phone: [facility] 11-02-2023 14:45-0400 Body mass index (BMI) [Ratio] 21.71 kg/m2 Krislyn Aberegg PA Work Phone: [facility] 11-02-2023 14:45-0400 Body temperature 97.7 [degF] Krislyn Aberegg PA Work Phone: [facility] 11-02-2023 14:45-0400 Body weight 55.6 kg Krislyn Aberegg PA Work Phone: [facility] 11-02-2023 14:45-0400 Diastolic blood pressure 72 mm[Hg] Krislyn Aberegg PA Work Phone: [facility] 11-02-2023 14:45-0400 Heart rate 76 /min Krislyn Aberegg PA Work Phone: [facility] 11-02-2023 14:45-0400 Respiratory rate 16 /min Krislyn Aberegg PA Work Phone: [facility] 11-02-2023 14:45-0400 SaO2% (BldA) [Mass fraction] 97 % Krislyn Aberegg PA Work Phone: [facility] 11-02-2023 14:45-0400 Systolic blood pressure 122 mm[Hg] Krislyn Aberegg PA Work Phone: [facility] 11-23-2022 05:10-0400 Body temperature 98.29 [degF] Shahzad Walker MD Work Phone: [facility] 11-23-2022 05:10-0400 Diastolic blood pressure 58 mm[Hg] Shahzad Walker MD Work Phone: [facility] 11-23-2022 05:10-0400 Heart rate 68 /min Shahzad Walker MD Work Phone: [facility] 11-23-2022 05:10-0400 Respiratory rate 19 /min Shahzad Walker MD Work Phone: [facility] 11-23-2022 05:10-0400 SaO2% (BldA) [Mass fraction] 100 % Shahzad Walker MD Work Phone: [facility] 11-23-2022 05:10-0400 Systolic blood pressure 110 mm[Hg] Shahzad Walker MD Work Phone: [facility] 09-26-2022 13:19-0400 Heart rate 64 /min Linda Whitehead MD Work Phone: [facility] 09-26-2022 13:19-0400 SaO2% (BldA) [Mass fraction] 98 % Linda Whitehead MD Work Phone: [facility] 09-26-2022 12:49-0400 Diastolic blood pressure 77 mm[Hg] Linda Whitehead MD Work Phone: [facility] 09-26-2022 12:49-0400 Systolic blood pressure 111 mm[Hg] Linda Whitehead MD Work Phone: [facility] 09-26-2022 12:09-0400 Body height 160 cm Linda Whitehead MD Work Phone: [facility] 09-26-2022 12:09-0400 Body mass index (BMI) [Ratio] 26.57 kg/m2 Linda Whitehead MD Work Phone: [facility] 09-26-2022 12:09-0400 Body temperature 99 [degF] Linda Whitehead MD Work Phone: [facility] 09-26-2022 12:09-0400 Body weight 68.04 kg Linda Whitehead MD Work Phone: [facility] 09-26-2022 12:09-0400 Respiratory rate 18 /min Linda Whitehead MD Work Phone: [facility] 08-07-2021 17:35-0500 Body temperature 97.39 [degF] Osbaldo Teran MD [facility] [employer] 08-07-2021 17:35-0500 Body weight 53.52 kg Osbaldo Teran MD [facility] [employer] 08-07-2021 17:35-0500 Diastolic blood pressure 90 mm[Hg] Osbaldo Teran MD [facility] [employer] 08-07-2021 17:35-0500 Heart rate 94 /min [facility] 17:35-0500 Respiratory rate 18 /min [facility] 08-07-2021 17:35-0500 SaO2% (BldA) [Mass fraction] 99 % Osbaldo Teran MD [facility] [employer] 08-07-2021 17:35-0500 Systolic blood pressure 124 mm[Hg] Osbaldo Teran MD [facility] Encounters Encounter Date Encounter Type Care Provider Facility Start: 09-24-2024 End: 09-24-2024 Emergency department patient visit No Primary Care Physician -Emergency Department Work Phone: Start: 09-08-2024 End: 09-08-2024 [facility] Facility:[facility] Start: 09-08-2024 End: 09-08-2024 Patient encounter procedure Miller BENITES Work Phone: [facility] Comment on above: Nasal sore (Primary Dx); Acute otitis externa of right ear, unspecified type Start: 08-14-2024 ambulatory [facility] Start: 05-20-2024 End: 05-20-2024 Emergency department patient visit No Primary Care Physician Facility:[facility] Start: 04-15-2024 End: 04-15-2024 Emergency department patient visit No Primary Care Physician Facility:[facility] Start: 12-16-2023 End: 12-16-2023 Emergency department patient visit No Primary Care Physician Facility:[facility] Start: 11-03-2023 Telephone encounter Elise Lomeli APRN.CNP Work Phone: [facility] Comment on above: Results Start: 11-02-2023 End: 11-02-2023 [facility] Facility:[facility] Start: 11-02-2023 End: 11-02-2023 Patient encounter procedure Miller BENITES Work Phone: [facility] Comment on above: Nausea and vomiting, unspecified vomiting type (Primary Dx); Dysuria; Exposure to strep throat Start: 10-05-2023 End: 10-05-2023 Emergency department patient visit [facility] Start: 02-09-2023 ambulatory THANIA VILLEGAS [facility] Start: 01-23-2023 End: 01-24-2023 Emergency department patient visit THANIA VILLEGAS [facility] Start: 11-23-2022 Emergency department patient visit SHAHZAD WALKER [facility] Start: 11-23-2022 End: 11-23-2022 Emergency department patient visit SHAHZAD WALKER [facility] Start: 11-23-2022 End: 11-23-2022 Emergency department patient visit Shahzad Walker MD Work Phone: [facility] Comment on above: Acute cystitis with hematuria (Primary Dx) Start: 11-16-2022 End: 11-16-2022 ambulatory THANIA VILLEGAS [facility] Start: 11-03-2022 [facility] Start: 10-26-2022 ambulatory [facility] Start: 10-20-2022 End: 10-20-2022 ambulatory THANIA VILLEGAS [facility] Start: 10-10-2022 End: 10-10-2022 ambulatory JEANIE HUNTER [facility] Start: 09-26-2022 End: 09-26-2022 Emergency department patient visit LINDA WHITEHEAD [facility] Start: 09-26-2022 End: 09-26-2022 Emergency department patient visit Linda Whitehead MD Work Phone: [facility] Dept Comment on above: Pelvic cramping (Luna rowan Dx) Start: 08-26-2021 End: 08-27-2021 Emergency department patient visit CECELIA HERNANDEZ [facility] Start: 08-16-2021 End: 08-17-2021 ambulatory [facility] Start: 08-16-2021 End: 08-16-2021 Subsequent hospital visit by physician [facility] Start: 08-08-2021 End: 08-13-2021 Evaluation and management of inpatient [facility] Start: 08-07-2021 End: 08-08-2021 Emergency department patient visit [facility] Start: 08-07-2021 End: 08-08-2021 Emergency department patient visit Osbaldo Teran MD [facility] ED Comment on above: Depression with suic idal ideation (Primary Dx); Hypokalemia Start: 12-08-2017 End: 12-08-2017 Patient encounter HORTENCIA PEREZ Facility: Start: 03-31-2017 End: 04-01-2017 Emergency department patient visit UNASSIGNED PHYSICIAN Facility: Start: 03-27-2017 End: 03-27-2017 Emergency department patient visit GISELA HENAO Facility: Procedures Date Procedure Procedure Detail Performing Clinician Start: 11-02-2023 Urnls dip stick/tablet rgnt auto w/o microscopy Miller BENITES Work Phone: Start: 11-02-2023 STREP A MOLECULAR (POC) Miller BENITES Work Phone: Start: 11-23-2022 Ct abdomen & pelvis w/contrast material Shahazd Walker MD Work Phone: Start: 11-23-2022 End: 11-23-2022 Urine test visual color cmprsn meths Shahzad Walker MD Work Phone: Start: 11-23-2022 Comprehensive metabolic panel Shahzad Walker MD Work Phone: Start: 10-10-2022 H/O: surgery History of lumpectomy of left breast Shahzad Walker MD Work Phone: Start: 10-10-2022 Adult depression screening assessment Shahzad Walker MD Work Phone: Start: 09-26-2022 Us pelvic nonobstetric real-time image complete Jeanie Hunter APRN GROUND TRANSPORTATION OPERATOR Work Phone: Start: 09-26-2022 Comprehensive metabolic panel Jeanie Hunter APRN GROUND TRANSPORTATION OPERATOR Work Phone: Start: 09-26-2022 End: 09-26-2022 Urine test visual color cmprsn meths Jeanie Hunter APRN GROUND TRANSPORTATION OPERATOR Work Phone: Start: 08-16-2021 Antibody hiv-1&hiv-2 single result Justin Ames APRN - PREPRESS MANAGER Work Phone: Start: 08-16-2021 Comprehensive metabolic panel Justin Deng PREPRESS MANAGER Work Phone: Start: 08-16-2021 Urinalysis microscopic only Justin Ames APRN - PREPRESS MANAGER Work Phone: Start: 08-16-2021 Urnls dip stick/tablet rgnt auto w/o microscopy Justin Kwaku [employer] PRODUCTION MANAGER - PREPRESS MANAGER Work Phone: Start: 08-07-2021 COVID-19, RAPID Osbaldo Teran MD Start: 08-07-2021 Ecg routine ecg w/least 12 lds w/i&r Mabel Adams Mercedes [employer] PRODUCTION MANAGER - PREPRESS MANAGER Work Phone: Start: 08-07-2021 Assay of acetaminophen Mabel Adams Mercedes [employer] PRODUCTION MANAGER - PREPRESS MANAGER Work Phone: Start: 08-07-2021 Assay of magnesium Mabel Adams Mercedes APR N - PREPRESS MANAGER Work Phone: Start: 08-07-2021 Assay of salicylate Mabel Adams Mercedes APR N - PREPRESS MANAGER Work Phone: Start: 08-07-2021 BASIC METABOLIC PANEL W/ REFLEX TO MG FOR LOW K Mabel Adams Mercedes [employer] PRODUCTION MANAGER - PREPRESS MANAGER Work Phone: Start: 08-07-2021 Urinalysis microscopic only Mabel Adams Mercedes [employer]FUELS PRODUCTION MANAGER - PREPRESS MANAGER Work Phone: Start: 08-07-2021 Urine test visual color cmprsn meths Mabel Long [employer]S PRODUCTION MANAGER - PREPRESS MANAGER Work Phone: Plan of Treatment Date Care Activity Detail Author Start: 09-24-2024 [facility] Start: 01-28-2024 Covid-19 Vaccine ( season) Covid-19 Vaccine ( season) [facility] Start: 01-28-2024 Influenza vaccination [facility] Start: 10-11-2023 Depression screening using PHQ-9 (Patient Health Questionnaire 9) score DEPRESSION SCREENING [facility] Start: 05-29-2023 Behavioral Health Screening Behavioral Health Screening [facility] Start: 02-09-2023 End: 02-09-2023 Patient encounter procedure 02/09/2023 Appoint[place] [address] [place] [address] [facility] Start: 01-27-2023 Covid-19 Vaccine ( season) Covid-19 Vaccine ( season) [facility] Start: 01-27-2023 Influenza vaccinatio n given INFLUENZA VACCINE (Season Ended) [facility] Start: 11-24-2022 End: 11-24-2022 Patient encounter procedure 11/24/2022 Office Visit Obstetrics and Gynecology ElvaMercedes boydKALYAN PREPRESS MANAGER [address] [id number] [facility] Start: 01-17-2022 Screening for malign ant neoplasm of cervix Pap Testing [facility] Start: 2021 Screening for malign ant neoplasm of cervix HPV Testing [facility] Start: 01-27-2021 Influenza vaccination Flu vaccine (# 1) [facility] Start: 01-18-2020 Screening for malign ant neoplasm of cervix Cervical Cancer Screening [facility] Start: 2012 Screening for malign ant neoplasm of cervix PAP SMEAR [facility] Start: 2010 Hepatitis B Vaccine (1 of 3 - 19+ 3-dose series) Hepatitis B Vaccine (1 of 3 - 19+ 3-dose series) [facility] Start: 2010 Urine microalbumin profile DTaP,Tdap,Td Vaccine (1 - Tdap) [facility] Start: 2009 ANNUAL WELLNESS VISIT ANNUAL WELLNES S VISIT [facility] Start: 2009 Anxiety Screening Anxiety Screening [facility] Start: 2009 Depression Screening Depression Scre ening [facility] Start: 2009 Hepatitis C screening Hepatitis C Sc reening [facility] Start: 2009 HIV screening HIV Screening [facility] Start: 2003 Depression screening using PHQ-9 (Patient Health Questionnaire 9) score DEPRESSION SCREENING [facility] Start: 2002 Administration of diphtheria + tetanus + acellular pertussis vaccine DTAP/TDAP/TD VACCINE (1 - Tdap) [facility] Start: 1996 COVID-19 Vaccine (1) COVID-19 Vaccin e (1) [facility] Start: 1991 COVID-19 VACCINE (#1) COVID-19 VACCI NE (#1) [facility] Bacteria identified in Urine by Culture URINE CULTURE Microbiology Routine Nausea and vomiting, unspecified vomiting type Dysuria 11/02/2023 3:03 PM EDT [facility] Work Phone: End: 09-26-2022 Dark Green Top [facility] Comment on above: Once for 1 Occurrenc es starting 09/26/2022 until 09/26/2022, 1 completed End: 11-23-2022 Dark Green Top [facility] Lab SO Once for 1 Occurrences starting 11/23/2022 until 11/23/2022, 1 completed [facility] Comment on above: Once for 1 Occurrenc es starting 11/23/2022 until 11/23/2022, 1 completed Dark Green Top Dark Green Top L ab SO 11/23/2022 1:19 AM EDT [facility] EKG 12 Lead EKG 12 Lead ECG STAT 08/07/2021 6:52 PM [facility] Work Phone: End: 09-26-2022 Gold Top [facility] Comment on above: Once for 1 Occurrenc es starting 09/26/2022 until 09/26/2022, 1 completed End: 11-23-2022 Gold Top Gold Top Lab SO Once for 1 Occurrences starting 11/23/2022 until 11/23/2022, 1 completed [facility] Comment on above: Once for 1 Occurrenc es starting 11/23/2022 until 11/23/2022, 1 completed Gold Top Gold Top Lab ASA P 11/23/2022 1:19 AM EDT [facility] End: 11-23-2022 Lavender Top Lavender Top Lab SO Once for 1 Occurrences starting 11/23/2022 until 11/23/2022, 1 completed [facility] Comment on above: Once for 1 Occurrenc es starting 11/23/2022 until 11/23/2022, 1 completed [facility] SO 11/23/2022 1:19 AM EDT [facility] End: 09-26-2022 LIGHT BLUE TOP [facility] Comment on above: Once for 1 Occurrenc es starting 09/26/2022 until 09/26/2022, 1 completed End: 11-23-2022 LIGHT BLUE TOP LIGHT BLUE TOP Lab SO Once for 1 Occurrences starting 11/23/2022 until 11/23/2022, 1 completed [facility] Comment on above: Once for 1 Occurrenc es starting 11/23/2022 until 11/23/2022, 1 completed LIGHT BLUE TOP LIGHT BLUE TOP L ab SO 11/23/2022 1:19 AM EDT [facility] End: 11-23-2022 Light Green Top Light Green Top Lab SO Once for 1 Occurrences starting 11/23/2022 until 11/23/2022, 1 completed [facility] Comment on above: Once for 1 Occurrenc es starting 11/23/2022 until 11/23/2022, 1 completed Light Green Top Light Green Top Lab SO 11/23/2022 1:19 AM EDT [facility] End: 08-07-2021 [facility] Comment on above: One Time for 1 Occur rences starting 08/07/2021 until 08/07/2021 Patient Education ED Corneal Abrasion [facility] Work Phone: Patient referral [facility] Work Phone: End: 09-26-2022 RAINBOW DRAW [employer] [facility] Work Phone: Comment on above: One Time for 1 Occur rences starting 09/26/2022 until 09/26/2022 End: 11-23-2022 RA[facility]BOW DRAW [facility] SO One Time for 1 Occurrences starting 11/23/2022 until 11/23/2022 [facility] Work Phone: Comment on above: One Time for 1 Occur rences starting 11/23/2022 until 11/23/2022 RAINBOW DRAW [facility] SO 11/23/2022 1:19 AM EDT [facility] Payers Date Payer Category Payer Self-pay 2023 Medicaid [employer] Member Ibanez bscriber Plan / Payer (Effective 2023-Present) Name: Praneeth Porras Relation to Subscriber: Self Name: Praneeth Porras Payer ID: [id number] (NAIC) Group ID: Not on file Type: Medicaid Address: [place] [address] [id number] 2022 Private Health Insurance [id number] 2016 Unknown [id number] 2012 Private Health Insurance [id number] 1991 Unknown [id number] [id number]. 176 1991 Unknown [id number] 2.16.840.1.717488.3.579.2. 173 1991 Unknown [id number] 2.16.840.1.907411.3.579.2. 173 1991 Unknown [id number] 2.16.840.1.952429.3.579.2. 173 1991 Unknown [id number] 2.16.840.1.279891.3.579.2. 297 1991 Unknown [id number] 2.16.840.1.280627.3.579.2. 297 1991 Unknown [id number] 2.16.840.1.652213.3.579.2. 297 1991 Unknown [id number] 2.16.840.1.297463.3.579.2. 297 1991 Unknown [id number] 2.16.840.1.492506.3.579.2. 297 1991 Unknown [id number] 2.16.840.1.038203.3.579.2. 297 1991 Unknown [id number] 2.16.840.1.801565.3.579.2. 297 1991 Unknown [id number] 2.16.840.1.862126.3.579.2. 297 1991 Unknown [id number] 2.16.840.1.665969.3.579.2. 297 1991 Unknown [id number] 2.16.840.1.148624.3.579.2. 651 1991 Unknown [id number] 2.16.840.1.006831.3.579.2. 651 Unknown [id number] 2.16.840.1.864162.3.579.2. 462 Unknown [id number] 2.16.840.1.256905.3.579.2. 462 Unknown [id number] 2.16.840.1.543223.3.579.2. 462 Unknown [id number] 2.16.840.1.976313.3.579.2. 462 Social History Date Type Detail Facility Start: 08-07-2021 End: 09-24-2024 Tobacco smoking status IDIS Smokes tobacco daily [facility]: History of tobacco use [facility]: Start: 08-07-2021 End: 11-02-2023 Tobacco use and exposure Smokeless tobacco non-user [facility] Phone: Start: 1990 Sex Assigned At Not on file [facility] Phone: Start: 07-09-2021 End: 09-26-2022 Exposure to SARS-CoV-2 (event) Not sure [facility]: Start: 08-08-2021 Alcohol intake Ex-drinker (finding) [facility]: History of tobacco use Cigarette Smoker [facility] Start: 09-26-2022 End: 09-08-2024 Cigarettes smoked current (pack per day) - Reported 0.5 [facility] Start: 09-26-2022 End: 11-23-2022 Alcohol intake Lifetime non-drinker (finding) [facility] Start: 1990 Sex Assigned At Female [facility] Start: 10-10-2022 History SDOH Financial 2 [facility] Start: 10-10-2022 History SDOH Transpo rt Med 1 [facility] Start: 11-02-2023 Tobacco smoking stat us NHIS Ex-smoker [facility] History of tobacco use Current smoker [facility] Start: 11-02-2023 End: 09-08-2024 Alcohol intake Current non-drinker of alcohol (finding) [facility] Start: 11-02-2023 End: 09-08-2024 Tobacco use panel [facility] Start: 09-24-2024 Sex Female (finding) [facility] Clinical Notes 09-26-2022 to 09-24-2024 Miller Keyes PA - 09/08/2024 1:31 PM EDTTelephone Encounter - Sedrick Cox - 11/03/2023 5:59 PM EDTTelephone Encounter - Jayme [facility] - 11/03/2023 5:59 PM EDTPatient Instructions Note Date & Type Note Facility 09-24-2024 Hospital Discharg e instructions Additional Instructions Your history and exam show changes consistent with a small corneal abrasion to your right eye. This will cause increased tearing eye pain and light sensitivity. It will typically heal within 3 to 5 days. Use the antibiotic drops as directed to prevent any infection and follow-up with ophthalmology for repeat evaluation. Return to the ER should you have any further concerns [facility] Work Phone: 09-08-2024 Note HNO ID: [id number] Author: MILLER KEYES PA Service: ? Author Type: Physician Access Services Librarian Type: Progress Notes Filed: 09/08/2024 13:39 Note Text: [facility] Subjective Praneeth Porras is a 34 year old female. Patient presents with: Ear Pain: Sharp, stabbing and itching in right ear x 1 month Nose Problem: Left nostril has a sore x 1 week, increasing in size and causing pain, hx staph infection of nostril HPI 34-year-old female presents for multiple complaints. Patient states she has been having pain and itchiness in her right ear for the past month. It has gotten worse over the past week. She feels like she has a sore pimple in the ear. She denies any drainage from the ear. No fevers, cough or congestion. Patient also reporting a sore in her left nostril. She states that she feels like she has a pimple in the nostril. It is slightly swollen and red and sore to touch. She has been wiping her nose a lot more recently. 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 No other complaint. PAST MEDICAL HISTORY Diagnosis Date Anxiety and depression Breast cancer (HCC) age 17 in situ Deafness partially deaf PAST SURGICAL HISTORY Procedure Laterality Date PAST SURGICAL HISTORY OF age 17 lumpectomy in Left Breast ALLERGIES Latex MEDICATIONS IBUPROFEN ORAL Take by mouth. mupirocin (BACTROBAN) 2 % ointment Apply to affected area three times a day for 7 days. doxycycline monohydrate 100 mg tablet Take 1 tablet by mouth two times a day for 5 days. ofloxacin (FLOXIN) 0.3 % otic solution Use 10 drops in the right ear once daily for 7 days. ondansetron orally disintegrating (ZOFRAN ODT) 4 mg disintegrating tablet Take 1 tablet by mouth every 8 hours as needed. DISSOLVE ON TONGUE (Patient not taking: Reported on 09/08/2024) FAMILY HISTORY Problem Relation Age of Onset other (schizophrenia) Mother other (brain tumor) Mother Social History Tobacco Use Smoking status: Former Smokeless tobacco: Never Substance Use Topics Alcohol use: No Drug use: No Review of Systems Constitutional: Negative for chills and fever. HENT: Positive for ear pain. Negative for congestion, nosebleeds and sore throat. Respiratory: Negative for cough and shortness of breath. Cardiovascular: Negative for chest pain. Gastrointestinal: Negative for diarrhea and vomiting. Skin: Positive for wound. Objective BP 96/61 (BP Site: Left Arm, BP Position: Sitting) Pulse 80 Temp 37.1 ?C (98.8 ?F) Resp 18 Wt 57.5 kg (126 lb 12.2 oz) LMP 12/06/2016 SpO2 99% BMI 22.46 kg/m? Physical Exam Vitals and nursing note reviewed. Constitutional: General: She is not in acute distress. Appearance: Normal appearance. She is not toxic-appearing. HENT: Right Ear: Tympanic membrane normal. Swelling and tenderness present. Left Ear: Tympanic membrane and ear canal normal. Ears: Comments: Tenderness of right external canal with some erythema. Abrasion noted within the canal. No foreign body seen. TM normal. Nose: Nasal tenderness present. Comments: Patient has tenderness, erythema and mild swelling noted of septal side of left nostril. No large abscess or fluctuance noted. Patient does have small scab noted on the inside of the left nostril as well. No drainage. No septal hematoma. Mouth/Throat: Mouth: Mucous membranes are moist. Eyes: Conjunctiva/sclera: Conjunctivae normal. Cardiovascular: Rate and Rhythm: Normal rate and regular rhythm. Pulmonary: Effort: Pulmonary effort is normal. Breath sounds: Normal breath sounds. Skin: General: Skin is warm and dry. Neurological: Mental Status: She is alert. {ASSESSMENT/PLAN: 1. Nasal sore - ICD9: 478.19, ICD10: J34.89 (primary diagnosis) - Will begin treatment with Doxycycline -Rx for mupirocin ointment -Warm compresses to the area - Supportive care with plenty of fluids, rest, and analgesia prn. 2. Acute otitis externa of right ear, unspecified type - ICD9: 380.10, ICD10: H60.501 -Rx for ofloxacin drop Diagnosis and treatment plan were discussed and questions were answered to the patient's satisfaction. Pt acknowledged understanding of concepts and follow up plan. Specific signs and symptoms that would indicate the need for higher level of care were discussed in detail warranting prompt ER evaluation. KAMARI Posadas History and Record Review External record(s) reviewed: prior outpatient record. Findings from review of outpatient records: No culture swab in our system. Patient reports history of MRSA Differential Diagnoses - Nasal sore/skin infection is more likely for the following reason(s): suggested by HANDP - Otitis externa is more likely for the following reason(s): suggested by HANDP - Otitis media is less likely for the following reason(s): HANDP not suggestive Disposition The patient was discharged. Procedures [facility] 09-08-2024 History of Presen t illness Narrative [facility] Subjective Praneeth Porras is a 34 year old female. Patient presents with: Ear Pain: Sharp, stabbing and itching in right ear x 1 month Nose Problem: Left nostril has a sore x 1 week, increasing in size and causing pain, hx staph infection of nostril HPI 34-year-old female presents for multiple complaints. Patient states she has been having pain and itchiness in her right ear for the past month. It has gotten worse over the past week. She feels like she has a sore pimple in the ear. She denies any drainage from the ear. No fevers, cough or congestion. Patient also reporting a sore in her left nostril. She states that she feels like she has a pimple in the nostril. It is slightly swollen and red and sore to touch. She has been wiping her nose a lot more recently. 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 No other complaint. PAST MEDICAL HISTORY Diagnosis Date Anxiety and depression Breast cancer (HCC) age 17 in situ Deafness partially deaf PAST SURGICAL HISTORY Procedure Laterality Date PAST SURGICAL HISTORY OF age 17 lumpectomy in Left Breast ALLERGIES Latex MEDICATIONS IBUPROFEN ORAL Take by mouth. mupirocin (BACTROBAN) 2 % ointment Apply to affected area three times a day for 7 days. doxycycline monohydrate 100 mg tablet Take 1 tablet by mouth two times a day for 5 days. ofloxacin (FLOXIN) 0.3 % otic solution Use 10 drops in the right ear once daily for 7 days. ondansetron orally disintegrating (ZOFRAN ODT) 4 mg disintegrating tablet Take 1 tablet by mouth every 8 hours as needed. DISSOLVE ON TONGUE (Patient not taking: Reported on 09/08/2024) FAMILY HISTORY Problem Relation Age of Onset other (schizophrenia) Mother other (brain tumor) Mother Social History Tobacco Use Smoking status: Former Smokeless tobacco: Never Substance Use Topics Alcohol use: No Drug use: No Review of Systems Constitutional: Negative for chills and fever. HENT: Positive for ear pain. Negative for congestion, nosebleeds and sore throat. Respiratory: Negative for cough and shortness of breath. Cardiovascular: Negative for chest pain. Gastrointestinal: Negative for diarrhea and vomiting. Skin: Positive for wound. Objective BP 96/61 (BP Site: Left Arm, BP Position: Sitting) Pulse 80 Temp 37.1 C (98.8 F) Resp 18 Wt 57.5 kg (126 lb 12.2 oz) LMP 12/06/2016 SpO2 99% BMI 22.46 kg/m Physical Exam Vitals and nursing note reviewed. Constitutional: General: She is not in acute distress. Appearance: Normal appearance. She is not toxic-appearing. HENT: Right Ear: Tympanic membrane normal. Swelling and tenderness present. Left Ear: Tympanic membrane and ear canal normal. Ears: Comments: Tenderness of right external canal with some erythema. Abrasion noted within the canal. No foreign body seen. TM normal. Nose: Nasal tenderness present. Comments: Patient has tenderness, erythema and mild swelling noted of septal side of left nostril. No large abscess or fluctuance noted. Patient does have small scab noted on the inside of the left nostril as well. No drainage. No septal hematoma. Mouth/Throat: Mouth: Mucous membranes are moist. Eyes: Conjunctiva/sclera: Conjunctivae normal. Cardiovascular: Rate and Rhythm: Normal rate and regular rhythm. Pulmonary: Effort: Pulmonary effort is normal. Breath sounds: Normal breath sounds. Skin: General: Skin is warm and dry. Neurological: Mental Status: She is alert. {ASSESSMENT/PLAN: 1. Nasal sore - ICD9: 478.19, ICD10: J34.89 (primary diagnosis) - Will begin treatment with Doxycycline -Rx for mupirocin ointment -Warm compresses to the area - Supportive care with plenty of fluids, rest, and analgesia prn. 2. Acute otitis externa of right ear, unspecified type - ICD9: 380.10, ICD10: H60.501 -Rx for ofloxacin drop Diagnosis and treatment plan were discussed and questions were answered to the patient's satisfaction. Pt acknowledged understanding of concepts and follow up plan. Specific signs and symptoms that would indicate the need for higher level of care were discussed in detail warranting prompt ER evaluation. KAMARI Posadas History and Record Review External record(s) reviewed: prior outpatient record. Findings from review of outpatient records: No culture swab in our system. Patient reports history of MRSA Differential Diagnoses - Nasal sore/skin infection is more likely for the following reason(s): suggested by H&P - Otitis externa is more likely for the following reason(s): suggested by H&P - Otitis media is less likely for the following reason(s): H&P not suggestive Disposition The patient was discharged. Procedures documented in this encounter [facility] 11-03-2023 Telephone encounter Note Patient verbally understands culture was normal and if symptoms persist to see PCP. Sedrick Cox [facility] 11-03-2023 Miscellaneous Notes Patient verbally understands culture was normal and if symptoms persist to see PCP. Sedrick Cox Patient's urine culture came back with normal blanca. Please call patient let her know if her symptoms are persistent that she should follow-up with primary care. documented in this encounter [facility] 11-03-2023 Telephone encounter Note Patient's urine culture came back with normal blanca. Please call patient let her know if her symptoms are persistent that she should follow-up with primary care. [facility] Work Phone: 11-02-2023 Instructions Miller Keyes PA - 11/02/2023 3:01 PM EDT GASTROENTERITIS DESCRIPTION: Irritation and infection of the digestive tract that can often cause sudden and sometimes violent upsets. Gastroenteritis may be confused with spastic colitis. It affects all ages but is most severe in young children (1 to 5 years) and adults over 60. FREQUENT SIGNS AND SYMPTOMS: -Nausea that sometimes causes vomiting. -Diarrhea that ranges from 2 or 3 loose stools to many watery stools. -Abdominal cramps, pain or tenderness. -Appetite loss. -Fever. -Weakness. CAUSES: -A variety of viruses, bacteria or parasites that have contaminated food or water. -Food poisoning. -Use of harsh laxatives. -Change in bacteria that normally live in the intestinal tract. -Chemical toxins in certain plants, seafood, or contaminated food. -Heavy metal poisoning. RISK INCREASES WITH: -Adults over 60. -Newborns and infants. -Improper diet. -Excess alcohol consumption. -Use of drugs, such as aspirin, nonsteroidal anti-inflammatories, antibiotics, laxatives, cortisone or caffeine. -Travel to foreign countries. PREVENTIVE MEASURES: -Wash hands frequently if you or someone around you has gastroenteritis. -Avoid as many causes and risks mentioned above as possible. -Take care with food preparation. TREATMENT: GENERAL MEASURES: -Diagnostic tests may include laboratory studies of blood and stool. -Treatment is usually supportive (rest, fluids). -Mild cases are usually treated at home. -It is not necessary to isolate persons with gastroenteritis. -Hospitalization, if dehydration is severe. MEDICATIONS: -Medicine is usually not necessary. If gastroenteritis is severe or prolonged, you may be prescribed antinausea and antidiarrheal medication. -Certain bacteria and parasites may require specific antibiotic treatment. ACTIVITY: Rest in bed until nausea, vomiting, diarrhea and fever are gone. DIET: -Suck ice chips or drink small amounts of clear fluids frequently. -After diarrhea and vomiting stop, drink small amounts of clear liquids, such as tea, flat jude mariza or lemon-rampart soda, broth and gelatin. -If liquids are tolerated for 12 hours, eat small amounts of soft foods, such as cooked cereal, rice, eggs, custard, baked potato and yogurt. -If soft food is tolerated for 2 - 3 days, gradually return to a normal diet. Avoid alcohol, spicy food (pizza, spaghetti, onions), gravy raw vegetables, raw fruit, salad dressing, cream soup, coffee and milk for several days. NOTIFY OFFICE: -Symptoms of gastroenteritis persist longer than 2 days. -The following occur during treatment: Mucus or blood in the stool. Fever of 101 degrees F (38.3 degrees C) or higher. Abdominal swelling. Severe pain in the abdomen or rectum especially pain that begins in the center and moves to the lower right side. -Vomiting and diarrhea recur after treatment. -Signs of dehydration, such as dry mouth, wrinkled skin, excess thirst or decreased urination, develop. documented in this encounter [facility] 11-02-2023 Note HNO ID: [id number] Author: MILLER KEYES PA Service: ? Author Type: Physician Access Services Librarian Type: Progress Notes Filed: 11/02/2023 15:05 Note Text: This note was created using [employer]. Subjective Praneeth Porras is a 33 year old female. HPI 33-year-old female presents for fever, chills, vomiting starting this morning. Patient states she got up this morning and had 2 episodes of vomiting. She has been able to drink Mountain Dew since. She has been able to eat today. She reports she still feels nauseous, but has not vomited for several hours. She denies any diarrhea. No abdominal pain or back pain. No pelvic pain. She does report she has had some burning with urination the past 2 to 3 days. No blood in the urine. Patient states that this morning she had a fever of 101 ?F. She has not taken any Tylenol or Motrin. She denies any vaginal discharge. LMP was last month. No concern for , states that her has a vasectomy. No concern for STD. Patient does have a little bit of a sore throat, states her son had strep last week. She denies any congestion, cough, ear pain, difficulty swallowing. No other complaint. PAST MEDICAL HISTORY Diagnosis Date Anxiety and depression Breast cancer (HCC) age 17 in situ Deafness partially deaf PAST SURGICAL HISTORY Procedure Laterality Date PAST SURGICAL HISTORY OF age 17 lumpectomy in Left Breast ALLERGIES Latex MEDICATIONS doxycycline hyclate (VIBRAMYCIN) 100 mg capsule Take 100 mg by mouth twice daily. IBUPROFEN ORAL Take by mouth. ondansetron orally disintegrating (ZOFRAN ODT) 4 mg disintegrating tablet Take 1 tablet by mouth every 8 hours as needed. DISSOLVE ON TONGUE FAMILY HISTORY Problem Relation Age of Onset other (schizophrenia) Mother other (brain tumor) Mother Social History Tobacco Use Smoking status: Former Smokeless tobacco: Never Substance Use Topics Alcohol use: No Drug use: No Review of Systems Constitutional: Positive for chills and fever. HENT: Positive for sore throat. Negative for congestion and ear pain. Respiratory: Negative for cough and shortness of breath. Cardiovascular: Negative for chest pain. Gastrointestinal: Positive for nausea and vomiting. Negative for abdominal pain and diarrhea. Objective BP 122/72 Pulse 76 Temp 36.5 ?C (97.7 ?F) Resp 16 Wt 55.6 kg (122 lb 9.2 oz) LMP 12/06/2016 SpO2 97% BMI 21.71 kg/m? Physical Exam Vitals and nursing note reviewed. Constitutional: General: She is not in acute distress. Appearance: Normal appearance. She is not toxic-appearing. HENT: Right Ear: Tympanic membrane and ear canal normal. Left Ear: Tympanic membrane and ear canal normal. Nose: Nose normal. Mouth/Throat: Mouth: Mucous membranes are moist. Pharynx: Uvula midline. Posterior oropharyngeal erythema present. No oropharyngeal exudate. Tonsils: No tonsillar exudate or tonsillar abscesses. 1+ on the right. 1+ on the left. Eyes: Conjunctiva/sclera: Conjunctivae normal. Cardiovascular: Rate and Rhythm: Normal rate and regular rhythm. Pulmonary: Effort: Pulmonary effort is normal. Breath sounds: Normal breath sounds. Abdominal: Tenderness: There is abdominal tenderness (Mild) in the suprapubic area. There is no right CVA tenderness or left CVA tenderness. Neurological: Mental Status: She is alert. Assessment and Plan ASSESSMENT/PLAN: 1. Nausea and vomiting, unspecified vomiting type - ICD9: 787.01, ICD10: R11.2 (primary diagnosis) - STREP A MOLECULAR (POC)-negative - UA DIP, URINE (POC) - URINE CULTURE -Suspect viral. Has been tolerating fluids and able to eat since this morning. No episodes of vomiting for several hours. -Recommend bland diet, fluids, rest. - Discussed with patient if she develops abdominal pain, inability to keep down fluids, needs to be seen in emergency room. 2. Dysuria - ICD9: 788.1, ICD10: R30.0 acute - UA positive for trace ketones, trace protein - Send urine for culture - Patient education for prevention given - UA DIP, URINE (POC) - URINE CULTURE -Treat if urine culture comes back positive. -Patient denies concern for STD, declines STD testing. No concern for , declines test. 3. Exposure to strep throat - ICD9: V01.89, ICD10: Z20.818 - STREP A MOLECULAR (POC)- negative. Diagnosis and treatment plan were discussed and questions were answered to the patient's satisfaction. Pt acknowledged understanding of concepts and follow up plan. Specific signs and symptoms that would indicate the need for higher level of care were discussed in detail warranting prompt ER evaluation. KAMARI Posadas [facility] 11-02-2023 History of Presen t illness Narrative This note was created using [employer]. Subjective Praneeth Porras is a 33 year old female. HPI 33-year-old female presents for fever, chills, vomiting starting this morning. Patient states she got up this morning and had 2 episodes of vomiting. She has been able to drink Mountain Dew since. She has been able to eat today. She reports she still feels nauseous, but has not vomited for several hours. She denies any diarrhea. No abdominal pain or back pain. No pelvic pain. She does report she has had some burning with urination the past 2 to 3 days. No blood in the urine. Patient states that this morning she had a fever of 101 F. She has not taken any Tylenol or Motrin. She denies any vaginal discharge. LMP was last month. No concern for , states that her has a vasectomy. No concern for STD. Patient does have a little bit of a sore throat, states her son had strep last week. She denies any congestion, cough, ear pain, difficulty swallowing. No other complaint. PAST MEDICAL HISTORY Diagnosis Date Anxiety and depression Breast cancer (HCC) age 17 in situ Deafness partially deaf PAST SURGICAL HISTORY Procedure Laterality Date PAST SURGICAL HISTORY OF age 17 lumpectomy in Left Breast ALLERGIES Latex MEDICATIONS doxycycline hyclate (VIBRAMYCIN) 100 mg capsule Take 100 mg by mouth twice daily. IBUPROFEN ORAL Take by mouth. ondansetron orally disintegrating (ZOFRAN ODT) 4 mg disintegrating tablet Take 1 tablet by mouth every 8 hours as needed. DISSOLVE ON TONGUE FAMILY HISTORY Problem Relation Age of Onset other (schizophrenia) Mother other (brain tumor) Mother Social History Tobacco Use Smoking status: Former Smokeless tobacco: Never Substance Use Topics Alcohol use: No Drug use: No Review of Systems Constitutional: Positive for chills and fever. HENT: Positive for sore throat. Negative for congestion and ear pain. Respiratory: Negative for cough and shortness of breath. Cardiovascular: Negative for chest pain. Gastrointestinal: Positive for nausea and vomiting. Negative for abdominal pain and diarrhea. Objective BP 122/72 Pulse 76 Temp 36.5 C (97.7 F) Resp 16 Wt 55.6 kg (122 lb 9.2 oz) LMP 12/06/2016 SpO2 97% BMI 21.71 kg/m Physical Exam Vitals and nursing note reviewed. Constitutional: General: She is not in acute distress. Appearance: Normal appearance. She is not toxic-appearing. HENT: Right Ear: Tympanic membrane and ear canal normal. Left Ear: Tympanic membrane and ear canal normal. Nose: Nose normal. Mouth/Throat: Mouth: Mucous membranes are moist. Pharynx: Uvula midline. Posterior oropharyngeal erythema present. No oropharyngeal exudate. Tonsils: No tonsillar exudate or tonsillar abscesses. 1+ on the right. 1+ on the left. Eyes: Conjunctiva/sclera: Conjunctivae normal. Cardiovascular: Rate and Rhythm: Normal rate and regular rhythm. Pulmonary: Effort: Pulmonary effort is normal. Breath sounds: Normal breath sounds. Abdominal: Tenderness: There is abdominal tenderness (Mild) in the suprapubic area. There is no right CVA tenderness or left CVA tenderness. Neurological: Mental Status: She is alert. Assessment and Plan ASSESSMENT/PLAN: 1. Nausea and vomiting, unspecified vomiting type - ICD9: 787.01, ICD10: R11.2 (primary diagnosis) - STREP A MOLECULAR (POC)-negative - UA DIP, URINE (POC) - URINE CULTURE -Suspect viral. Has been tolerating fluids and able to eat since this morning. No episodes of vomiting for several hours. -Recommend bland diet, fluids, rest. - Discussed with patient if she develops abdominal pain, inability to keep down fluids, needs to be seen in emergency room. 2. Dysuria - ICD9: 788.1, ICD10: R30.0 acute - UA positive for trace ketones, trace protein - Send urine for culture - Patient education for prevention given - UA DIP, URINE (POC) - URINE CULTURE -Treat if urine culture comes back positive. -Patient denies concern for STD, declines STD testing. No concern for , declines test. 3. Exposure to strep throat - ICD9: V01.89, ICD10: Z20.818 - STREP A MOLECULAR (POC)- negative. Diagnosis and treatment plan were discussed and questions were answered to the patient's satisfaction. Pt acknowledged understanding of concepts and follow up plan. Specific signs and symptoms that would indicate the need for higher level of care were discussed in detail warranting prompt ER evaluation. KAMARI Posadas documented in this encounter [facility] 11-23-2022 Hospital Discharg e instructions Shahzad Walker MD - 11/23/2022 4:59 AM EDT Follow up with your primary care doctor. Please return to the Emergency Department for any new or worsening symptoms. documented in this encounter [facility] 11-23-2022 Emergency department Note Obtained 2 IVs using ultrasound, an 18G in LAC and 20G in RAC, both with blood return. Pt insisted both be removed immediately after flushing, she states she cantaste the saline and something must be wrong Pt now has no IV and blood has not been collected. ERP aware. [facility] 11-23-2022 Emergency department Note Obtained 2 IVs using ultrasound, an 18G in LAC and 20G in RAC, both with blood return. Pt insisted both be removed immediately after flushing, she states she cantaste the saline and something must be wrong Pt now has no IV and blood has not been collected. ERP aware. PT c/o hematuria. PT states that this started yesterday. C/O pain in lower back and pelvic area more with urination but constant. PT is alert and oriented x 4 Resp are equal and unlabored Skin pwd Images from the original note were not included. [facility] Emergency Department - [place] ED Course/Medical Decision Making: Praneeth Porras, date of 1990, is a 32 y.o. female with past medical history of schizoaffective disorder, DVTs who presents to the Emergency Department with hematuria and bilateral flank pain. Upon arrival patient in no acute distress breathing easily on room air ED Course as of 11/23/22 0500 MonNov 23, 2022 0119 On arrival patient alert and oriented x3 answering questions properly moving all extremity spontaneously. Hemodynamically stable and afebrile. Patient presents with hematuria and bilateral flank pain. States she has had the flank pain over the past 2 to 3 weeks but noticed that it has worsened over the past day or so. During this past 2 days also started having hematuria. Denies any dysuria. States she is on active treatment for chlamydia. States she has not taken her temperature but denies any chills. Denies nausea or vomiting. On exam patient overall well-appearing. Abdomen soft nontender. Bilateral CVA tenderness. We will plan for belly labs, fluids and CT abdomen pelvis 0121 POC ED/FC Urine : NEG 0134 Per chart review, patient seen on 11/16 for greenish like discharge as well as lower abdominal pain x2 days. Patient started on 14 day course of Doxy and Flagyl for possible PID [id number] Occult Bld(!): Moderate 0219 Leukoesterase(!): Moderate 0219 Ordered dose of rocephin 0259 White Blood Cells: 6.3 0259 Hgb: 13.4 0307 LACTATE: 0.7 0309 LIPASE: 72 0309 Comprehensive metabolic panel aka Metabo(!) Non critical 0459 CT Abdomen / Pelvis With IV Contrast ONLY No acute intra-abdominal inflammatory process identified. 0459 On reassessment patient continues to do well. Given close return precautions. Given script for keflex for her UTI. Encouraged to follow up with their PCP. Discharged with instructions to return to the ED with any new or worsening symptoms. Patient amenable to plan Differential diagnosis (including but not limited to): Small bowel obstruction, appendicitis, cholecystitis, diverticulitis, perforation, mesenteric ischemia, UTI, STD, pyelonephritis gastroenteritis, viral illness Medications Given: Medications fentaNYL Citrate (PF) (SUBLIMAZE) 100 MCG/2ML injection 50 mcg (50 mcg IV Push Given 11/23/22 0301) ondansetron hcl (ZOFRAN) injection 4 mg (4 mg IV Push Given 11/23/22 0253) sodium chloride 0.9% bolus 0.9 % solution 1,000 mL (0 mLs Intravenous Stopped 11/23/22 5772) cefTRIAXone (ROCEPHIN) IM injection 1 g (1 g Intramuscular Given 11/23/22 0251) LORazepam (ATIVAN) tablet 1 mg (1 mg Oral Given 11/23/22 0226) LOCM iohexol (OMNIPAQUE 300 MG/ML) injection 100 mL (100 mLs Intravenous Given 11/23/22 0321) Upon re-examination, the patient looked well and denied any new or worsening symptoms. Patient remained stable throughout the visit. Results were discussed with the patient and family . Patient and family given the opportunity to ask questions. Patient discharged with instructions to return to the emergency department with any new worsening symptoms Patient amenable to plan Consults: none Disposition: DC Chief Complaint: Patient presents with Chief Complaint Patient presents with Hematuria HPI Praneeth Porras, date of 1990, is a 32 y.o. female with past medical history of schizoaffective disorder, DVTs who presents to the Emergency Department with hematuria and bilateral flank pain. States the flank pain is been going on for 2 to 3 weeks but has noticed it worsened over the past 2 days and has had associated hematuria. Denies any fevers, chills, chest pain, shortness of breath. Denies prior abdominal surgeries. States her last bowel was yesterday and was normal. States she is on active treatment for chlamydia Review of Systems Constitutional: Negative for fever. Respiratory: Negative for shortness of breath. Cardiovascular: Negative for chest pain. Gastrointestinal: Negative for abdominal pain. Genitourinary: Positive for flank pain and hematuria. Negative for dysuria. All other systems reviewed and are negative. Physical Exam Vitals and nursing note reviewed. Constitutional: General: She is not in acute distress. HENT: Head: Atraumatic. Eyes: Extraocular Movements: Extraocular movements intact. Pupils: Pupils are equal, round, and reactive to light. Cardiovascular: Rate and Rhythm: Regular rhythm. Pulmonary: Effort: Pulmonary effort is normal. No respiratory distress. Abdominal: General: There is no distension. Palpations: Abdomen is soft. Tenderness: There is no abdominal tenderness. There is right CVA tenderness and left CVA tenderness. Musculoskeletal: General: No signs of injury. Neurological: General: No focal deficit present. Mental Status: She is alert and oriented to person, place, and time. Mental status is at baseline. Psychiatric: Mood and Affect: Mood normal. Vitals: Vitals: 11/23/22 0453 BP: 100/58 Pulse: 62 Resp: 21 Temp: SpO2: 98% Past Medical History: Past Medical History: Diagnosis Date Anemia Anxiety Deep vein thrombosis (HCC) Depression Past Surgical History: Past Surgical History: Procedure Laterality Date BREAST LUMPECTOMY 2007 Family History: Family History Problem Relation Age of Onset Cancer Mother Diabetes Mother Heart disease Father Social History: Social History Socioeconomic History Marital status: Legally Spouse name: None Number of children: None Years of education: None Highest education level: None Occupational History None Tobacco Use Smoking status: Every Day Types: E-Cig/Vaping Smokeless tobacco: Never Vaping Use Vaping Use: Every day Substances: Nicotine Devices: Disposable Substance and Sexual Activity Alcohol use: Never Drug use: Not Currently Types: Marijuana Sexual activity: Not Currently Other Topics Concern None Social History Narrative None Social Determinants of Health Financial Resource Strain: High Risk Difficulty of Paying Living Expenses: Hard Food Insecurity: Food Insecurity Present Worried About Running Out of Food in the Last Year: Sometimes true Ran Out of Food in the Last Year: Sometimes true Transportation Needs: Unmet Transportation Needs Lack of Transportation (Medical): Yes Lack of Transportation (Non-Medical): Yes Physical Activity: Not on file Stress: Not on file Social Connections: Not on file Intimate Partner Violence: Unknown Fear of Current or Ex-Partner: No Emotionally Abused: Not on file Physically Abused: Not on file Sexually Abused: Not on file Housing Stability: High Risk Unable to Pay for Housing in the Last Year: Yes Number of Places Lived in the Last Year: Not on file Unstable Housing in the Last Year: Yes Allergies: Allergies Allergen Reactions Seroquel [Quetiapine] Shortness Of Breath Ciprofloxacin Muscle Aches Latex Itching Review of patient's records reviewed by me during this visit Diagnostics: Labs: Labs Reviewed COMPREHENSIVE METABOLIC PANEL - Abnormal; Notable for the following components: Result Value Calcium 10.6 (*) All other components within normal limits URINE CHEM STRIP ONLY - Abnormal; Notable for the following components: Ketones Trace (*) Occult Bld Moderate (*) Leukoesterase Moderate (*) All other components within normal limits LACTATE - Normal LIPASE - Normal POCT ED/FC/SURG URINE - Normal CBC AND DIFFERENTIAL RAINBOW DRAW Narrative: The following orders were created for panel order [place] Draw. Procedure Abnormality Status --------- ------ Gold Top[[id number]] In process LIGHT BLUE TOP[[id number]] In process Light Green Top[[id number]] In process Lavender Top[[id number]] In process Dark Green Top[[id number]] In process Please view results for these tests on the individual orders. GOLD TOP LIGHT BLUE TOP LIGHT GREEN TOP LAVENDER TOP DARK GREEN TOP Labs reviewed and interpreted by me. Radiology: Personal review of imaging conducted and agree with radiology's findings CT Abdomen / Pelvis With IV Contrast ONLY Final Result No acute intra-abdominal inflammatory process identified. Shahzad Walker MD 11/23/22, 5:00 AM [facility] This note was partially generated using [employer] system, and there may be some incorrect words, spellings, and punctuation that were not noted in checking the note before saving. Shahzad Walker MD 11/23/22 0500 documented in this encounter [facility] 11-23-2022 Emergency department Triage note PT c/o hematuria. PT states that this started yesterday. C/O pain in lower back and pelvic area more with urination but constant. PT is alert and oriented x 4 Resp are equal and unlabored Skin pwd [facility] 11-23-2022 Physician Emergency department Note Images from the original note were not included. [facility] Emergency Department - [place] ED Course/Medical Decision Making: Praneeth Porras, date of 1990, is a 32 y.o. female with past medical history of schizoaffective disorder, DVTs who presents to the Emergency Department with hematuria and bilateral flank pain. Upon arrival patient in no acute distress breathing easily on room air ED Course as of 11/23/22 0500 MonNov 23, 2022 0119 On arrival patient alert and oriented x3 answering questions properly moving all extremity spontaneously. Hemodynamically stable and afebrile. Patient presents with hematuria and bilateral flank pain. States she has had the flank pain over the past 2 to 3 weeks but noticed that it has worsened over the past day or so. During this past 2 days also started having hematuria. Denies any dysuria. States she is on active treatment for chlamydia. States she has not taken her temperature but denies any chills. Denies nausea or vomiting. On exam patient overall well-appearing. Abdomen soft nontender. Bilateral CVA tenderness. We will plan for belly labs, fluids and CT abdomen pelvis 0121 POC ED/FC Urine : NEG 0134 Per chart review, patient seen on 11/16 for greenish like discharge as well as lower abdominal pain x2 days. Patient started on 14 day course of Doxy and Flagyl for possible PID 0218 Occult Bld(!): Moderate 0219 Leukoesterase(!): Moderate 0219 Ordered dose of rocephin 0259 White Blood Cells: 6.3 0259 Hgb: 13.4 0307 LACTATE: 0.7 0309 LIPASE: 72 0309 Comprehensive metabolic panel aka Metabo(!) Non critical 0459 CT Abdomen / Pelvis With IV Contrast ONLY No acute intra-abdominal inflammatory process identified. 0459 On reassessment patient continues to do well. Given close return precautions. Given script for keflex for her UTI. Encouraged to follow up with their PCP. Discharged with instructions to return to the ED with any new or worsening symptoms. Patient amenable to plan Differential diagnosis (including but not limited to): Small bowel obstruction, appendicitis, cholecystitis, diverticulitis, perforation, mesenteric ischemia, UTI, STD, pyelonephritis gastroenteritis, viral illness Medications Given: Medications fentaNYL Citrate (PF) (SUBLIMAZE) 100 MCG/2ML injection 50 mcg (50 mcg IV Push Given 11/23/22 0301) ondansetron hcl (ZOFRAN) injection 4 mg (4 mg IV Push Given 11/23/22 0253) sodium chloride 0.9% bolus 0.9 % solution 1,000 mL (0 mLs Intravenous Stopped 11/23/22 0413) cefTRIAXone (ROCEPHIN) IM injection 1 g (1 g Intramuscular Given 11/23/22 0251) LORazepam (ATIVAN) tablet 1 mg (1 mg Oral Given 11/23/22 0226) LOCM iohexol (OMNIPAQUE 300 MG/ML) injection 100 mL (100 mLs Intravenous Given 11/23/22 0328) Upon re-examination, the patient looked well and denied any new or worsening symptoms. Patient remained stable throughout the visit. Results were discussed with the patient and family . Patient and family given the opportunity to ask questions. Patient discharged with instructions to return to the emergency department with any new worsening symptoms Patient amenable to plan Consults: none Disposition: DC Chief Complaint: Patient presents with Chief Complaint Patient presents with Hematuria HPI Praneeth Porras, date of 1990, is a 32 y.o. female with past medical history of schizoaffective disorder, DVTs who presents to the Emergency Department with hematuria and bilateral flank pain. States the flank pain is been going on for 2 to 3 weeks but has noticed it worsened over the past 2 days and has had associated hematuria. Denies any fevers, chills, chest pain, shortness of breath. Denies prior abdominal surgeries. States her last bowel was yesterday and was normal. States she is on active treatment for chlamydia Review of Systems Constitutional: Negative for fever. Respiratory: Negative for shortness of breath. Cardiovascular: Negative for chest pain. Gastrointestinal: Negative for abdominal pain. Genitourinary: Positive for flank pain and hematuria. Negative for dysuria. All other systems reviewed and are negative. Physical Exam Vitals and nursing note reviewed. Constitutional: General: She is not in acute distress. HENT: Head: Atraumatic. Eyes: Extraocular Movements: Extraocular movements intact. Pupils: Pupils are equal, round, and reactive to light. Cardiovascular: Rate and Rhythm: Regular rhythm. Pulmonary: Effort: Pulmonary effort is normal. No respiratory distress. Abdominal: General: There is no distension. Palpations: Abdomen is soft. Tenderness: There is no abdominal tenderness. There is right CVA tenderness and left CVA tenderness. Musculoskeletal: General: No signs of injury. Neurological: General: No focal deficit present. Mental Status: She is alert and oriented to person, place, and time. Mental status is at baseline. Psychiatric: Mood and Affect: Mood normal. Vitals: Vitals: 11/23/22 0453 BP: 100/58 Pulse: 62 Resp: 21 Temp: SpO2: 98% Past Medical History: Past Medical History: Diagnosis Date Anemia Anxiety Deep vein thrombosis (HCC) Depression Past Surgical History: Past Surgical History: Procedure Laterality Date BREAST LUMPECTOMY 2008 Family History: Family History Problem Relation Age of Onset Cancer Mother Diabetes Mother Heart disease Father Social History: Social History Socioeconomic History Marital status: Legally Spouse name: None Number of children: None Years of education: None Highest education level: None Occupational History None Tobacco Use Smoking status: Every Day Types: E-Cig/Vaping Smokeless tobacco: Never Vaping Use Vaping Use: Every day Substances: Nicotine Devices: Disposable Substance and Sexual Activity Alcohol use: Never Drug use: Not Currently Types: Marijuana Sexual activity: Not Currently Other Topics Concern None Social History Narrative None Social Determinants of Health Financial Resource Strain: High Risk Difficulty of Paying Living Expenses: Hard Food Insecurity: Food Insecurity Present Worried About Running Out of Food in the Last Year: Sometimes true Ran Out of Food in the Last Year: Sometimes true Transportation Needs: Unmet Transportation Needs Lack of Transportation (Medical): Yes Lack of Transportation (Non-Medical): Yes Physical Activity: Not on file Stress: Not on file Social Connections: Not on file Intimate Partner Violence: Unknown Fear of Current or Ex-Partner: No Emotionally Abused: Not on file Physically Abused: Not on file Sexually Abused: Not on file Housing Stability: High Risk Unable to Pay for Housing in the Last Year: Yes Number of Places Lived in the Last Year: Not on file Unstable Housing in the Last Year: Yes Allergies: Allergies Allergen Reactions Seroquel [Quetiapine] Shortness Of Breath Ciprofloxacin Muscle Aches Latex Itching Review of patient's records reviewed by me during this visit Diagnostics: Labs: Labs Reviewed COMPREHENSIVE METABOLIC PANEL - Abnormal; Notable for the following components: Result Value Calcium 10.6 (*) All other components within normal limits URINE CHEM STRIP ONLY - Abnormal; Notable for the following components: Ketones Trace (*) Occult Bld Moderate (*) Leukoesterase Moderate (*) All other components within normal limits LACTATE - Normal LIPASE - Normal POCT ED/FC/SURG URINE - Normal CBC AND DIFFERENTIAL RAINBOW DRAW Narrative: The following orders were created for panel order [place] Draw. Procedure Abnormality Status --------- ------ Gold Top[[id number]] In process LIGHT BLUE TOP[[id number]] In process Light Green Top[[id number]] In process Lavender Top[[id number]] In process Dark Green Top[[id number]] In process Please view results for these tests on the individual orders. GOLD TOP LIGHT BLUE TOP LIGHT GREEN TOP LAVENDER TOP DARK GREEN TOP Labs reviewed and interpreted by me. Radiology: Personal review of imaging conducted and agree with radiology's findings CT Abdomen / Pelvis With IV Contrast ONLY Final Result No acute intra-abdominal inflammatory process identified. Shahzad Walker MD 11/23/22, 5:00 AM [facility] This note was partially generated using [employer] system, and there may be some incorrect words, spellings, and punctuation that were not noted in checking the note before saving. Shahzad Walker MD 11/23/22 0500 [facility] 09-26-2022 Emergency department Note at bedside. [facility] 09-26-2022 Emergency department Note at bedside. Pt's HR 47. This nurse in to check on pt. Pt sleeping in bed and easily awakens to name. Pt awake and HR 68. aware. Patient to ultrasound at this time ED Diagnosis and Summary 1. Pelvic cramping ED Summary This 32 year old female with a history of anxiety, depression, vaping, tobacco abuse, presents to ED via private vehicle. She reports no menses for 3 months. She also c/o left sided pelvic pain, breast tenderness, and nipple discharge. Pt is non ill, non toxic appearing. Lungs clear. Abd soft, tender to palpation in LLQ and suprapubic area. She is afebrile. She is not hypoxic or tachycardic. Cbc and cmp are unremarkable. Lipase WNL. Hcg consistent with negative . Urinalysis negative for infection. Pelvic ultrasound unremarkable. Pt was given toradol with improvement in s/s. She will be d/c home with oral toradol. To follow up with PCP referral. Return to ED if s/s worsen. Labs Reviewed COMPREHENSIVE METABOLIC PANEL - Normal LIPASE - Normal POCT ED/FC/SURG URINE - Normal HCG URINE (PREG) URINE CHEM STRIP ONLY BETA-HCG QUANTITATIVE SERUM(DO NOT USE FOR TUMOR MARKER, SEE [id number]) CBC AND DIFFERENTIAL RAINBOW DRAW Narrative: The following orders were created for panel order [facility] Draw. Procedure Abnormality Status --------- ------ Gold Top[[id number]] In process LIGHT BLUE TOP[[id number]] In process Dark Green Top[[id number]] In process Please view results for these tests on the individual orders. GOLD TOP LIGHT BLUE TOP DARK GREEN TOP US Pelvis-Torsion Study Final Result AGE-APPROPRIATE UTERUS AND OVARIES. : Spoke with Dr. Whitehead regarding patient. Physician to complete their own physical exam and evaluation. Collaboration performed between this DEPARTMENT CLERK and physician regarding patient's plan of care. Diagnostic studies were reviewed with the patient in their entirety. Patient voiced an understanding of their meaning. At this time, I feel patient is stable for discharge home and patient is comfortable with this plan. Patient was informed to return to the ED for new or worsening symptoms as well as follow up with primary care physician. They had no further questions or complaints at the time of disposition and were comfortable with the plan of care. Patient remained stable throughout the remainder of ED course and required no further interventions. History Chief Complaint Patient presents with Test Pelvic Pain Patient's medications, allergies, past medical, surgical, social and family histories were reviewed and updated as appropriate. The history is provided by the patient. This 32 year old female with a history of anxiety, depression, vaping, tobacco abuse, presents to ED via private vehicle. She reports no menses for 3 months. She also c/o left sided pelvic pain, breast tenderness, and nipple discharge. She reports she was at a dr office today to start anxiety medication and they would not start her on anything until she was confirmed to not be . She denies fever, nausea, vomiting, diarrhea. She denies intervention prior to arrival. She denies exac or allev factors. She denies hx similar s/s. Review of Systems Gastrointestinal: Positive for abdominal pain. Negative for nausea and vomiting. Genitourinary: Positive for pelvic pain. No menses for 3 months Breast: Positive for breast discharge Physical Exam ED Triage Vitals [09/26/22 1209] BP 145/90 Heart Rate 92 Resp 18 Temp 99 F (37.2 C) Temp src Oral SpO2 100 % Weight 150 lb (68 kg) Height 5' 3 (1.6 m) BMI (Calculated) 26.58 Physical Exam Vitals and nursing note reviewed. Constitutional: General: She is not in acute distress. Appearance: Normal appearance. She is not ill-appearing. HENT: Head: Normocephalic and atraumatic. Right Ear: External ear normal. Left Ear: External ear normal. Nose: Nose normal. No rhinorrhea. Cardiovascular: Rate and Rhythm: Normal rate and regular rhythm. Pulses: Normal pulses. Heart sounds: Normal heart sounds. Pulmonary: Effort: Pulmonary effort is normal. Breath sounds: Normal breath sounds. No wheezing or rhonchi. Abdominal: General: Bowel sounds are normal. Palpations: Abdomen is soft. Tenderness: There is abdominal tenderness in the suprapubic area and left lower quadrant. Musculoskeletal: General: No signs of injury. Normal range of motion. Cervical back: Normal range of motion and neck supple. No muscular tenderness. Skin: General: Skin is warm and dry. Capillary Refill: Capillary refill takes less than 2 seconds. Neurological: General: No focal deficit present. Mental Status: She is alert and oriented to person, place, and time. Mental status is at baseline. Psychiatric: Mood and Affect: Mood normal. Behavior: Behavior normal. ED Course Procedures Medical Decision Making Jeanie Hunter APRN GROUND TRANSPORTATION OPERATOR 09/26/22 8940 Pt arrives to ED via private vehicle. Pt ambulates to room without difficulty. Pt is unsure if she is . Pt states she took two tests at home, on faintly positive. And the second one was negative. Pt states her last menstrual cycle was approx 3 months ago. Pt states she has been having some pain to her left lower pelvic region. Pt A&Ox4. RR easy and unlabored. NAD noted. documented in this encounter [facility] 09-26-2022 Emergency department Note Pt's HR 47. This nurse in to check on pt. Pt sleeping in bed and easily awakens to name. Pt awake and HR 68. aware. [facility] 09-26-2022 Emergency department Note Patient to ultrasound at this time [facility] 09-26-2022 Physician Emergency department Note ED Diagnosis and Summary 1. Pelvic cramping ED Summary This 32 year old female with a history of anxiety, depression, vaping, tobacco abuse, presents to ED via private vehicle. She reports no menses for 3 months. She also c/o left sided pelvic pain, breast tenderness, and nipple discharge. Pt is non ill, non toxic appearing. Lungs clear. Abd soft, tender to palpation in LLQ and suprapubic area. She is afebrile. She is not hypoxic or tachycardic. Cbc and cmp are unremarkable. Lipase WNL. Hcg consistent with negative . Urinalysis negative for infection. Pelvic ultrasound unremarkable. Pt was given toradol with improvement in s/s. She will be d/c home with oral toradol. To follow up with PCP referral. Return to ED if s/s worsen. Labs Reviewed COMPREHENSIVE METABOLIC PANEL - Normal LIPASE - Normal POCT ED/FC/SURG URINE - Normal HCG URINE (PREG) URINE CHEM STRIP ONLY BETA-HCG QUANTITATIVE SERUM(DO NOT USE FOR TUMOR MARKER, SEE [id number]) CBC AND DIFFERENTIAL RAINBOW DRAW Narrative: The following orders were created for panel order [facility] Draw. Procedure Abnormality Status --------- ------ Gold Top[[id number]] In process LIGHT BLUE TOP[[id number]] In process Dark Green Top[[id number]] In process Please view results for these tests on the individual orders. GOLD TOP LIGHT BLUE TOP DARK GREEN TOP US Pelvis-Torsion Study Final Result AGE-APPROPRIATE UTERUS AND OVARIES. : Spoke with Dr. Whitehead regarding patient. Physician to complete their own physical exam and evaluation. Collaboration performed between this DEPARTMENT CLERK and physician regarding patient's plan of care. Diagnostic studies were reviewed with the patient in their entirety. Patient voiced an understanding of their meaning. At this time, I feel patient is stable for discharge home and patient is comfortable with this plan. Patient was informed to return to the ED for new or worsening symptoms as well as follow up with primary care physician. They had no further questions or complaints at the time of disposition and were comfortable with the plan of care. Patient remained stable throughout the remainder of ED course and required no further interventions. History Chief Complaint Patient presents with Test Pelvic Pain Patient's medications, allergies, past medical, surgical, social and family histories were reviewed and updated as appropriate. The history is provided by the patient. This 32 year old female with a history of anxiety, depression, vaping, tobacco abuse, presents to ED via private vehicle. She reports no menses for 3 months. She also c/o left sided pelvic pain, breast tenderness, and nipple discharge. She reports she was at a dr office today to start anxiety medication and they would not start her on anything until she was confirmed to not be . She denies fever, nausea, vomiting, diarrhea. She denies intervention prior to arrival. She denies exac or allev factors. She denies hx similar s/s. Review of Systems Gastrointestinal: Positive for abdominal pain. Negative for nausea and vomiting. Genitourinary: Positive for pelvic pain. No menses for 3 months Breast: Positive for breast discharge Physical Exam ED Triage Vitals [09/26/22 1209] BP 145/90 Heart Rate 92 Resp 18 Temp 99 F (37.2 C) Temp src Oral SpO2 100 % Weight 150 lb (68 kg) Height 5' 3 (1.6 m) BMI (Calculated) 26.58 Physical Exam Vitals and nursing note reviewed. Constitutional: General: She is not in acute distress. Appearance: Normal appearance. She is not ill-appearing. HENT: Head: Normocephalic and atraumatic. Right Ear: External ear normal. Left Ear: External ear normal. Nose: Nose normal. No rhinorrhea. Cardiovascular: Rate and Rhythm: Normal rate and regular rhythm. Pulses: Normal pulses. Heart sounds: Normal heart sounds. Pulmonary: Effort: Pulmonary effort is normal. Breath sounds: Normal breath sounds. No wheezing or rhonchi. Abdominal: General: Bowel sounds are normal. Palpations: Abdomen is soft. Tenderness: There is abdominal tenderness in the suprapubic area and left lower quadrant. Musculoskeletal: General: No signs of injury. Normal range of motion. Cervical back: Normal range of motion and neck supple. No muscular tenderness. Skin: General: Skin is warm and dry. Capillary Refill: Capillary refill takes less than 2 seconds. Neurological: General: No focal deficit present. Mental Status: She is alert and oriented to person, place, and time. Mental status is at baseline. Psychiatric: Mood and Affect: Mood normal. Behavior: Behavior normal. ED Course Procedures Medical Decision Making Jeanie Hunter APRN GROUND TRANSPORTATION OPERATOR 09/26/22 1450 [facility] 09-26-2022 Emergency department Triage note Pt arrives to ED via private vehicle. Pt ambulates to room without difficulty. Pt is unsure if she is . Pt states she took two tests at home, on faintly positive. And the second one was negative. Pt states her last menstrual cycle was approx 3 months ago. Pt states she has been having some pain to her left lower pelvic region. Pt A&Ox4. RR easy and unlabored. NAD noted. [facility] Evaluation note Diagnosis Depression with suicidal ideation- Primary Hypokalemia Hypopotassemia documented in this encounter NoteWagon Phone: evaluation note* Diagnosis Pelvic cramping- Primary Unspecified symptom associated with female genital organs documented in this encounter [facility] note* Diagnosis Acute cystitis with hematuria- Primary Acute cystitis documented in this encounter [facility] note* Diagnosis Nausea and vomiting, unspecified vomiting type- Primary Dysuria Exposure to strep throat Contact with or exposure to other communicable diseases documented in this encounter [facility] note* Diagnosis Nasal sore- Primary Other diseases of nasal cavity and sinuses Acute otitis externa of right ear, unspecified type documented in this encounter [facility] noteNo assessment information availableWCleveland Clinic Medina [facility] Work Phone: Hospital Discharge instructions* Attachments The following attachments cannot be sent through Care Everywhere. * Pelvic Pain (Faroese Maldivian) [facility] (narrative)* Consultation (Routine) - Open Specialty Diagnoses / Procedures Referred By Karen gonzalez Referred To Contact Family Medicine Diagnoses Pelvic cramping Jeanie Hunter APRN GROUND TRANSPORTATION OPERATOR [address] [place] [address] [facility] [address] [place] [address] [place] [address] Referral ID Status Reason Start Date Expiration Date Visits Re quested Visits Authorized [id number] Open 09/26/2022 10/28/2023 1 [facility] (narrative)No reason for referral information availableWCleveland Clinic Medina Hospital Work Phone: Summary Purpose Family History No Family History Records FoundNo Family History Records FoundNo Family History Records FoundNo Family History Records FoundNo Family History Records FoundNo Family History Records FoundNo Family History Records FoundNo Family History Records FoundNo Family History Records FoundNo Family History Records Found Advance Directives No Advanced Directives Records FoundLatest Code Status on File Code Status Date Activated Date Inactivated Comments Full Code 08/08/2021 5:12 AM 08/13/2021 6:05 PM Advance Directive Response Recorded Date/ Time Do you have a Healthcare Power of Surgical Scrub Technologist? No September 24, 2024 6:35am Chief Complaint and Reason for Visit Chief Complaint Admit Date eye problem September 24, 2024 6:3 2am Additional Source Comments INFORMATION SOURCE (unrecogn ized section and content) DATE CREATED AUTHOR 12/09/2017 [facility] DATE CREATED AUTHOR AUTHOR'S ORGANIZ ATION 07/19/2019 [facility] ([place]) DATE CREATED AUTHOR AUTHOR'S ORGANIZ ATION 02/07/2021 [facility] DATE CREATED AUTHOR AUTHOR'S ORGANIZ ATION 08/13/2021 [facility] DATE CREATED AUTHOR AUTHOR'S ORGANIZ ATION 08/29/2021 [facility] DATE CREATED AUTHOR AUTHOR'S ORGANIZ ATION 09/01/2021 [facility] DATE CREATED AUTHOR AUTHOR'S ORGANIZ ATION 06/17/2023 [facility] DATE CREATED AUTHOR AUTHOR'S ORGANIZ ATION 08/16/2024 [facility] DATE CREATED AUTHOR AUTHOR'S ORGANIZ ATION 09/09/[address] [facility] DATE CREATED AUTHOR AUTHOR'S ORGANIZ ATION 10/03/2024 [facility] Reason for Visit (unrecogniz ed section and content) Reason Comments Suicidal pt states I was put into rehab and they won't let me have my medications Reason Comments Test Pelvic Pain Reason Comments Hematuria Reason Comments Vomiting Fever chils x1 days Reason Comments Results Reason Comments Ear Pain Sharp, stabbing and itching in right ear x 1 month Nose Problem Left nostril has a s ore x 1 week, increasing in size and causing pain, hx staph infection of nostril Scheduled Active and Recently Administ ered Medications (unrecognized section and content) Medication Order 08/06/2021 08/07/2021 08/08/2021 lithium capsule 600 mg (COMPLETED) 600 mg, Oral, ONCE, On 08/07/21 at 2014, For 1 dose, Maintain adequate fluid and sodium intake 2027 (Given - Provider: Bailey Golden, KESHAWN) potassium chloride (KLOR-CON M) extended release tablet 40 mEq 40 mEq, Oral, 2 TIMES DAILY, First dose on 08/07/21 at 2100, Do not crush, chew, or suck on tablet. Tablet may also be broken in half and each half swallowed separately. 1926 (Given - Provider: Trista Ching RN) 0900 (Due)2100 (Due) Scheduled Medication Order 09/24/2022 09/25/2022 09/26/2022 Ketorolac (TORADOL) injection 30 mg (COMPLETED) 30 mg, IV Push, NOW, 1 dose, On Mon09/26/22 at 1415 1350 (Given - Provid er: Mony Serra, KESHAWN) Scheduled Medication Order 11/21/2022 11/22/2022 11/23/2022 cefTRIAXone (ROCEPHIN) IM injection 1 g (COMPLETED) 1 g, Intramuscular, NOW, 1 dose, On Mon11/23/22 at 0300, Add 2.1 ml Diluent to = 350mg/1ml (1g/2.85 ml) FOR I.M. USE ONLY , Indications: Uncomplicated Urinary Tract Infection 025 (Given - Provid er: Bernadette Rivera RN) fentaNYL Citrate (PF) (SUBLIMAZE) 100 MCG/2ML injection 50 mcg (COMPLETED) 50 mcg, IV Push, NOW, 1 dose, On Mon11/23/22 at 0145, Caution: This medication looks and/or sounds like another medication. 030 (Given - Provid er: Bernadette Rivera RN) LOCM iohexol (OMNIPAQUE 300 MG/ML) injection 100 mL (COMPLETED) 100 mL, Intravenous, ONCE, 1 dose, On Mon11/23/22 at 0400, Radiology 0321 (Given - Provid er: Mary Martinez, RT) LORazepam (ATIVAN) tablet 1 mg (COMPLETED) 1 mg, Oral, ONCE, 1 dose, On Mon11/23/22 at 0300, Caution: This medication looks and/or sounds like another medication. 0226 (Given - Provid er: Bernadette Rivera RN) ondansetron hcl (ZOFRAN) injection 4 mg (COMPLETED) 4 mg, IV Push, NOW, 1 dose, On Mon11/23/22 at 0145, Caution: This medication looks and/or sounds like another medication. 0253 (Given - Provid er: Bernadette Rivera RN) sodium chloride 0.9% bolus 0.9 % solution 1,000 mL (COMPLETED) 1,000 mL, Intravenous, Administer over 31 Minutes, On Mon11/23/22 at 0145, ONCE, 1 dose 0151 (New Bag - Prov ider: Bernadette Rivera RN)0158 (Stopped - Provider: Bernadette Rivera RN)0251 (Restarted - Provider: Bernadette Rivera RN)0413 (Stopped - Provider: Bernadette Rivera RN) Care Teams (unrecognized sec tion and content) Healthcare Applications Analyst Relationship Specialty [place] [address] [place] [address] PCP - General Family Medicine 10/13/22 Healthcare Applications Analyst Relationship Specialty Start Date End Date LucianoAlfredo mayeslisa Thurston III PCP - General Family Medicine 01/13/17 Healthcare Applications Analyst Relationship Specialty Start Date End Date LucianoAlfredolisa Thurston III PCP - General Family Medicine 01/13/17 Healthcare Applications Analyst Relationship Specialty Start Date End Date Cande Luciano Bassem III PCP - General Family Medicine 01/13/17 Team Status: Active Member Role Status Dates No Primary Care Physician Primary Care Provider Active Team Status: Inactive Member Role Status Dates No Primary Care Physician Primary Care Provider Active Start: September 24, 2024 End: September 24, 2024 Dr. Jerod Davis , DO Emergency Provider Active Start: September 24, 2024 End: September 24, 2024 Source Comments (unrecognize d section and content) In the event this informatio n is protected by the Federal Confidentiality of Alcohol and Drug Abuse Patient Records regulations: The Federal rules restrict any use of the information to criminally investigate or prosecute any alcohol or drug abuse patient.[facility] the event this information is protected by the Federal Confidentiality of Alcohol and Drug Abuse Patient Records regulations: The Federal rules restrict any use of the information to criminally investigate or prosecute any alcohol or drug abuse patient.[facility] HospitalIn the event this information is protected by the Federal Confidentiality of Alcohol and Drug Abuse Patient Records regulations: The Federal rules restrict any use of the information to criminally investigate or prosecute any alcohol or drug abuse patient.[facility] Goals (unrecognized section and content) Goals may be documented in a n alternate section FOR RECORDS PERTAINING TO PATIENTS WHO ARE OR HAVE BEEN ENROLLED IN A CHEMICAL DEPENDENCY/SUBSTANCEABUSE PROGRAM, SOME INFORMATION MAY BE OMITTED. This clinical summary was aggregated from multiple sources. Caution should be exercised in using it in the provision of clinical care. This summary normalizes information from multiple sources, and as a consequence, information in this document may materially change the coding, format and clinical context of patient data. In addition, data may be omitted in some cases. CLINICAL DECISIONS SHOULD BE BASED ON THE PRIMARY CLINICAL RECORDS. [facility] [employer] [facility]. provides no warranty or guarantee of the accuracy or completeness of information in this document.
[2024-12-24] VITALS: PULSE 86
[2024-12-24 00:06] LABS: Internal QC Validated? YES +Cl - CLEAR BKGD; Pregnancy, Urine Negative Negative
[2024-12-24 00:07] LABS: Record Kit Lot#,Urine Preg 0000962302
== END 2024-12-24 00:08 | disposition home or self-care (01) ==
PROVIDERS: Emergency Provider Emergency Medicine; Visit Provider Emergency Medicine
DX: N76.0 Acute vaginitis (principal)
CPT/HCPCS: 81025; 87491; 87591; 96372; 99282

== ENCOUNTER 2025-01-30 22:03 | Emergency (ER) | payer SELFPAY ==
[2025-01-30 22:04] VITALS: BP 162/96; PULSE 101; RESP 18; TEMP 36.6; O2SAT 100; BMI 24.3
--- NOTE | 2025-01-30 22:26 | EX.ED.DYSGE1 ---
HPI History of Present Illness Chief Complaint: Lower Extremity Injury Informant: patient and friend Narrative Narrative: Patient is a 34-year-old female with past medical history of schizophrenia and previous pulmonary embolus but no reported anticoagulation. She states roughly 10 hours ago she went to kick something. She states she was wearing a steel toed boot but missed the steel toe section of the boot and that she struck the top of her left foot. She states she had immediate pain after doing so. She states she gave the area time to resolve and took [id number] medication but there has been no symptom improvement and with concern for fracture she presents for evaluation. [facility] Medical History (Updated 01/31/25 @ 01:[address] Jerod Davis DO) Presence of IVC filter Pulmonary embolism Paranoid schizophrenia Home Medications ?Medication ?Instructions ?Recorded ?Last Taken ?Type lurasidone 20 mg tablet 20 mg PO QPM 09/24/24 Unknown History doxycycline monohydrate 100 mg 100 mg PO BID #14 CAPSULES 12/23/24 Unknown Rx capsule ibuprofen 600 mg tablet 600 mg PO 4X/DAY PRN pain #40 tabs 01/30/25 Unknown Rx oxycodone-acetaminophen 5 mg-325 1 tab PO Q6H PRN pain 3 days #12 01/30/25 Unknown Rx mg tablet (Percocet) tabs Allergy/AdvReac Type Severity Reaction Status Date / Time quetiapine (From Seroquel) Allergy Chest Verified 01/30/25 22:05 tightness Surgical History (Updated 01/30/25 @ 23:00 by Cesar Don) History of lumpectomy Social History household members: family current occupational status: employed Smoking Status: Current every day smoker tobacco type: e-cigarettes ROS ROS ED Constitutional Constitutional ED: Denies chills or fever(s) ENT ENT ED: Denies sore throat Cardiovascular Cardiovascular: Denies chest pain Respiratory/Chest Respiratory/Chest: Denies cough or dyspnea Gastrointestinal Gastrointestinal: Denies abdominal pain, diarrhea, nausea or vomiting Musculoskeletal Musculoskeletal: Reports other Details: Positive left foot pain Integumentary Reports other Details: Negative laceration abrasion or ecchymosis of the left foot ; Denies Abrasions or rash Neurologic Neurologic: Denies headache(s) Hematologic/Lymphatic Hematologic/Lymphatic: Denies easy bleeding or easy bruising EXAM Physical Exam Const Vital Signs: 01/30/25 22:04 01/31/25 00:07 Temperature 97.8 F 97.6 F L Temperature Source Oral Pulse Rate 101 H 95 Respiratory Rate 18 18 Blood Pressure 162/96 H 130/82 H Blood Pressure Mean 118 98 Pulse Ox 100 100 Oxygen Delivery Method Room Air Positive well nourished and well developed General Appearance ED: well developed; Negative for pallor HEENT HEENT Narrative: Normocephalic atraumatic Eyes PERRL and EOMs intact bilaterally General Eye ED: Negative for scleral icterus Neck supple Resp normal respiratory effort and clear to auscultation bilaterally Cardio regular rate and regular rhythm Extremity Extremity Narrative: Left lower extremity is neurovascularly intact There is mild soft tissue swelling to the midportion of the dorsal aspect of the left foot. No significant ecchymosis or abrasions. There is pain with palpation near the proximal 3rd-4th metatarsal and middle to lateral cuneiform bones. No obvious bony deformity or joint effusion Achilles tendon is intact and ankle ligaments are stable No subungual hematoma noted Remainder of the exam is normal Neuro oriented x3, CN's II-XII intact bilaterally and no sensory deficits noted Sensorium / Orientation: alert Psych mental status grossly normal Skin no rashes or lesions noted and no wounds Skin Narrative: Mild soft tissue swelling to the dorsal aspect of the left foot as documented above without overlying ecchymosis abrasions or laceration Capillary refill remains less than 3 seconds General Skin Exam: Negative for jaundice or pallor MDM MDM MDM Narrative Medical decision making narrative: Patient arrived to the ER hypertensive but otherwise with stable vitals. She reported direct trauma to the left foot. There is concern for fracture versus contusion versus dislocation. Secondary to this a x-ray was obtained. X-ray revealed no signs of bony trauma such as fracture or dislocation indicating patient's symptoms and pain are consistent with contusion. As she is closed and neurovascularly intact without signs of compartment syndrome there is no need for further intervention and she is otherwise safe for discharge with symptomatic care. History & Record Review Discussion w/independent historian: Patient and Friend Radiography Diagnostic Testing: Clinical Impression(s) from Imaging Studies Foot X-Ray 01/30/25 22:43 IMPRESSION: No evidence for acute abnormality. Reading Location: [place] [id number] X-ray of the left foot as interpreted by the emergency medicine physician reveals no acute fracture or dislocation or joint effusion Discharge Plan Triage Chief Complaint: Lower Extremity Injury ED Provider: Jerod Davis Dx/Rx/DC Orders Clinical Impression: Contusion of foot, left, Schizophrenia, Hx of pulmonary embolus Instructions: ED Foot Contusion Prescriptions: New ibuprofen 600 mg tablet 600 mg PO 4X/DAY PRN (Reason: pain) Qty: 40 0RF oxycodone-acetaminophen [Percocet] 5-325 mg tablet 1 tab PO Q6H PRN (Reason: pain) 3 Days Qty: 12 0RF No Action lurasidone 20 mg tablet 20 mg PO QPM doxycycline monohydrate 100 mg capsule 100 mg PO BID Qty: 14 0RF Primary Care Provider: Care Physician,No Primary Referrals: Care Physician,No Primary [Primary Care Provider] - Activity Restrictions/Additional Instructions: Your x-ray did not show any sign fracture or dislocation indicating you have a deep bone bruise known as a contusion. It would typically take 5 to 10 days for this to heal. Continue to ice the area to help reduce pain and speed healing and take the prescribed medications as directed. Return to the ER should you have any further concerns Print Language: Frisian Disposition Disposition: Home, Self Care Discharge Date/Time: 01/31/25 00:20
--- OUTSIDE RECORDS SUMMARY | 2025-01-30 22:36 | XMS RPT_ITS | CCD ---
Author Organization [facility] Care Team Providers Care Pocket Closer Name Role Phone GISELA HENAO Unavailable Unavailable TAMI HALL Unavailable Unavailable PHYSICIAN, UNASSIGNED Unavailable Unavailabl e [email or web address] Unavailable Unavailable YAHORTENCIA HERRON A. Unavailable Unavailable Unavailable Primary Care Provider [...] KITTY Attending Unavailable SCHOEKSENIA, SHAHZAD Admitting Unavailable SCHOEKSENIA SHAHZAD Attending Unavailable BENOUN, THANIA Primary Care Unavailable LINDA WHITEHEAD Admitting Unavailable LINDA WHITEHEAD Attending Unavailable ELSA, JEANIE Referring Unavailable SADOUN, THANIA Attending Unavailable SADOUN, THANIA Primary Care Unavailable JAVAD MENDEZ Attending Unavailable JAVAD MENDEZ Referring Unavailable SCHSHAHZAD AGUILAR Attending Unavailable SHAHZAD WALKER Referring Unavailable SADOUN, THANIA Primary Care Unavailable Luciano III, Cande Bassme Primary Care Provide r BOSTON JONES DO Consulting Unavailable BOSTON JONES DO Referring Unavailable KYLE KHAN MD Admitting Unavailable KYLE KHAN MD Primary Care Unavailable KYLE KHAN MD Attending Unavailable PROVIDER, UNKNOWN Consulting Unavailable PROVIDER, UNKNOWN Consulting Unavailable BOSTON JONES DO Admitting Unavailable BOSTON JONES DO Primary Care Unavailable BOSTON JONES DO Consulting Unavailable BOSTON JONES DO Attending Unavailable PROVIDER, UNKNOWN Consulting Unavailable PROVIDER, UNKNOWN Consulting Unavailable LUCIANO III, CANDE BASSEM Primary Care Unav ailable LUCIANO III, CANDE BASSEM Primary Care Unav ailable Care Physician, No Primary Primary Care Provider Unavailable Ryan GARCIAS, Dr. Newsome Emergency Provider Dr. Jerod Davis DO Attending Provider Meng MATTA, Dr. Wright Emergency Provider Daniel Ch Attending Unavailable Care Physician, No Primary Primary Care Unava ilable Care Physician, No Primary Primary Care Unava ilable Jerod Davis Attending Unavailable Care Physician, No Primary Primary Care Unava ilable Kyle Fan Attending Unavailable Care Physician, No Primary Primary Care Unava ilable Fran Nice Attending Unavailable Allergies Allergy Classification Reported Allergen(s) Allergy Type Date of Onset Reaction(s) Facility (6 sources) QUEtiapine Drug Allergy 2 Shortness Of Breath [facility] (6 sources) Latex; Translations: [LATEX] Propensity to adverse reactions to drug 7 Itching [facility] (1 source) Ciprofloxacin Drug Allergy 3 Muscle Aches [facility] (1 source) 08/11/2018 (-) MRSA SCREEN NARES; Translations: [08/11/2018 (-) MRSA SCREEN NARES] Propensity to adverse reactions (disorder) [facility] (1 source) QUEtiapine Drug Allergy 5 [facility] Medications Current Medications Medication Drug Class(es) [...] Start: 11-23-2022 take 1 capsule by mo uth four times daily cephalexin (KEFLEX) 500 MG capsule Indications: Acute cystitis with hematuria Take 1 capsule by mouth 4 times daily. 40 capsule 0 11/23/2022 Active cyclobenzaprine hydrochloride 5 mg oral tablet (1 source) Muscle Relaxant Start: 10-10-2022 take 1 tablet by mouth once daily in the evening cyclobenzaprine (FLEXERIL) 5 MG tablet Take 1 tablet by mouth every evening. 30 tablet 1 10/10/2022 Active Desvenlafaxine (1 source) Serotonin and Norepinephrine Reuptake Inhibitor Desvenlafaxine Succinate (PRISTIQ PO) Take by mouth. 0 Active doxycycline monohydrate 100 mg oral capsule (6 sources) Tetracycline-class Drug Start: 12-23-2024 take 1 capsule by mouth twice daily Doxycycline Monohydrate 100 mg capsule Active 100 mg PO TWICE A DAY 14 December 23, 2024 12:00am Start: 09-08-2024 End: 09-13-2024 take 1 tablet [...] Active lurasidone hydrochloride 20 mg oral tablet (2 sources) Atypical Antipsychotic Start: 09-24-2024 take 1 tablet [...] 11-23-2022 cefTRIAXone (ROCEPHIN) IM injection 1 g ciprofloxacin 3 mg/ml ophthalmic solution (2 sources) Quinolone Antimicrobial Start: 09-24-2024 End: 12-23-2024 Ciprofloxacin Hcl 0.3 % drops Discontinued 2 NMA EACH EYE 4 TIMES DAILY 10 7 0 September 24, 2024 12:00am December 23, 2024 10:39pm dicyclomine hydrochloride 10 mg oral capsule (2 sources) Anticholinergic Start: 04-15-2024 End: 09-24-2024 take 1 [...] mg ondansetron 4 mg disintegrating oral tablet (6 sources) Serotonin-3 Receptor Antagonist Start: 04-15-2024 End: 09-24-2024 take 1 tablet by mouth every six hours as needed for nausea and vomiting Ondansetron 4 mg tablet,disintegrat ing Discontinued 4 mg PO EVERY 6 HOURS as needed for nausea and vomiting April 15, 2024 1:00am September 24, 2024 6:35am Start: 11-23-2022 End: 11-23-2022 ondansetron hcl (ZOFRAN) inj ection 4 mg Start: 01-17-2017 take 1 tablet by [facility] every eight hours as needed ondansetron orally disintegrating (ZOFRAN ODT) 4 mg disintegrating tablet Take 1 tablet by mouth every 8 hours as needed. DISSOLVE ON TONGUE 20 tablet 1 01/17/2017 Active 50 ml sodium chloride 9 mg/ml injection (1 source) Start: 11-23-2022 End: 11-23-2022 sodium chloride 0.9% bolus 0.9 % solution 1,000 mL sulfamethoxazole 800 mg / trimethoprim 160 mg oral tablet (2 sources) Dihydrofolate Reductase Inhibitor Antibacterial, Sulfonamide Antimicrobial Start: 04-21-2020 End: 04-15-2024 Sulfamethoxazole-Tri methoprim 1 TABLET tablet Discontinued 1 {tbl} PO TWICE A DAY 6 0 April 21, 2020 1:00am April 15, 2024 [...] disorder, predominantly inattentive type] Onset: 10-10-2022 Chronic Crushing injury or internal injury (2 sources) Crush injury of right hand; Translations: [Crushing injury of right hand, initial encounter] 12-24-2023 Episodic Fluid and electrolyte disorders (1 source) Hypokalemia; [...] to streptococcal pharyngitis] Onset: 10-20-2022 11-02-2023 Episodic Inflammatory diseases of female pelvic organs (2 sources) Acute parametritis and pelvic cellulitis; Translations: [Vaginitis] Onset: 11-16-2022 12-23-2024 Episodic Menstrual disorders (2 sources) Amenorrhea; Translations: [Amenorrhea, unspecified] Onset: 10-10-2022 10-10-2022 Chronic Mood disorders (4 sources) Depressive disorder; Translations: [Depression with suicidal ideation] Onset: 08-07-2021 Chronic Mood disorders (1 source) Mood disorders; Translations: [Depression, unspecified] Onset: 10-10-2022 Nausea and vomiting (2 sources) Nausea; Translations: [Nausea and vomiting] Onset: 12-08-2017 11-02-2023 Episodic Other aftercare (2 sources) Other intermediate manager (current) drug therapy; Translations: [Other intermediate manager (current) drug therapy] Onset: 01-23-2023 Episodic Other [...] 09-08-2024 Episodic Schizophrenia and other psychotic disorders (4 sources) Schizoaffective disorder, bipolar type; Translations: [Schizoaffective disorder, bipolar type] Onset: 08-08-2021 08-08-2021 Chronic Substance-related disorders (3 sources) Stimulant dependence; Translations: [Other stimulant dependence, in remission] Onset: 08-08-2021 10-10-2022 Chronic Substance-related disorders (1 source) Stimulant abuse; Translations: [Other stimulant use, unspecified, uncomplicated] Onset: 08-08-2021 08-08-2021 Episodic Superficial injury; contusion (3 sources) Abrasion of cornea of right eye; Translations: [Injury of conjunctiva and corneal abrasion without foreign body, right eye, initial encounter] Onset: 09-30-2024 09-24-2024 Episodic Unclassified (1 source) Other specified postprocedural states; Translations: [OTHER SPECIFIED POSTPROCEDURAL STATES] Onset: 12-08-2017 Urinary tract infections (8 sources) Urinary tract infection, site not specified; Translations: [Acute cystitis] Onset: 12-08-2017 Episodic Past or Other Problems Problem Classification Problem Date Documented Da te Episodic/Chronic Abdominal pain (5 sources) Pain in pelvis; Translations: [Pelvic and [...] of diseases classified elsewhere] Onset: 10-26-2022 Episodic Other lower respiratory disease (1 source) Solitary pulmonary nodule; Translations: [Solitary pulmonary nodule] Onset: 10-10-2022 Episodic Other screening for suspected conditions (not mental disorders or infectious disease) (2 sources) Abnormal findings on diagnostic imaging of skull and head, not elsewhere classified; Translations: [Encounter for screening mammogram for malignant neoplasm of breast] Onset: 10-10-2022 Episodic Other upper respiratory infections (3 sources) Viral upper respiratory tract infection; Translations: [...] Test Name Value Interpretation Reference Range Facility M8200.2203on 12-24-2024 M8200.2203 Chlamydia Trachomati s PCR NEGATIVE for Chlamydia trachomatis N. gonorrhoeae PCR Negative for N. gonorrhoeae Normal [facility] Comment on above: Performed By: #### L 400.7600, M8200.2203 #### [facility] [address] [place], [address] ,Urineon 12-24-2024 Beta HCG ( test) Ql (U) Negative Normal [facility] Comment on above: Order Comment: Result Comment: Very dilute urine specimens, as indicated by a low specific gravity, may not contain technology sales representative levels of hCG. If is still suspected, a first morning urine specimen should be collected 48 hours later and tested. Performed By: #### L 400.7600, M8200.2203 #### [facility] [address] [facility] [place], [address] Emergency Department Summary on 12-23-2024 Emergency Department Summary [facility] Medical Records Department [address] [place] [address] Emergency Department Summary 12/23/24 MR#: [id number] Acct: [id number] Name: PRANEETH PORRAS Rep #: [id number] : 1990 34 From: Kyle Fan MD PCP: Care Physician,No Primary Status:DEP ER Location: ED HPI HPI - Female History of Present Illness Chief Complaint: Female C/O Informant: patient Narrative Narrative: Healthy 34-year-old female had unprotected intercourse with a new partner 2 days ago, and today she has an uncomfortable yellow vaginal discharge. She has vaginal discomfort and some itching but no abdominal pain, fevers, chills, or other systemic symptoms. She has a history of chlamydia in the past, she states this seems very similar. [facility] Medical History Pulmonary embolism Pulmonary embolism Paranoid schizophrenia Home Medications ???Medication ???Instructions ???Recorded ???Last Taken ???Type lurasidone 20 mg tablet 20 mg PO QPM 09/24/24 Unknown Hist ory doxycycline monohydrate 100 mg 100 mg PO BID #14 CAPSULES 5 Unknown Rx capsule Allergy/AdvReac Type Severity Reaction Status Date / Time quetiapine (From Seroquel) Allergy Chest Verified 12/23/24 22:29 tightness Social History household members: family current occupational status: employed Smoking Status: Current every day smoker tobacco type: e-cigarettes ROS ROS ED Constitutional Constitutional ED: Denies chills or fever(s) Eyes Eyes: Denies change in vision or diplopia ENT ENT ED: Denies rhinorrhea or sore throat Cardiovascular Cardiovascular: Denies chest pain or palpitations Respiratory/Chest Respiratory/Chest: Denies cough or dyspnea Gastrointestinal Gastrointestinal: Denies abdominal pain, diarrhea, nausea or vomiting Genitourinary Genitourinary ED: Reports vaginal discharge; Denies dysuria or hematuria Musculoskeletal Musculoskeletal: Denies back pain or neck pain Integumentary Denies abscess or rash Neurologic Neurologic: Denies headache(s), paresthesias or weakness Psychiatric Psychiatric: Denies anxiety or suicidal thoughts EXAM Physical Exam Const Vital Signs: 12/23/24 22:29 12/24/24 00:00 Temperature 97.5 F L Temperature Source Temporal Pulse Rate 89 86 Respiratory Rate 18 Blood Pressure 147/88 H Blood Pressure Mean 107 Pulse Ox 100 Oxygen Delivery Method Room Air Positive well nourished and well developed General Appearance ED: well developed and NAD HEENT Reports moist mucous membranes normocephalic and atraumatic Eyes PERRL and EOMs intact bilaterally Neck full ROM and supple Resp normal respiratory effort GI non-tender and non-distended Auscultation: normoactive bowel sounds Palpation: soft Speculum Exam - Vagina: vaginal discharge Extremity normal to inspection General Extremety ED: Negative for edema General Extremity: Negative for edema Neuro oriented x3, CN's II-XII intact bilaterally and no sensory deficits noted Sensorium / Orientation: awake and alert Motor Exam: strength 5/5 throughout Skin no rashes or lesions noted and no wounds MDM MDM MDM Narrative Medical decision making narrative: Patient has a very benign exam, not concerned about a tubo-ovarian abscess specially since she has only had symptoms for a day or less. Appropriate to empirically treat given the high risk situation for chlamydia and/or gonorrhea. Sent a urine specimen to test for both and empirically treated under current recommendations including IM Rocephin which she was amenable to covering and doxycycline which is going to be prescribed to her for a week according to current recommendations. test is negative she is comfortable with following up and/are returning if worse. Lab Data Attestation: I reviewed the patient's lab results. Labs: Laboratory Results - last 24 hr 12/23/24 23:55 Urine Test Negative Discharge Plan Triage Chief Complaint: Female C/O ED Provider: Kyle Fan Dx/Rx/DC Orders Clinical Impression: Vaginitis Instructions: ED Chlamydia, Treated (Female) Prescriptions: New doxycycline monohydrate 100 mg capsule 100 mg PO BID Qty: 14 0RF No Action lurasidone 20 mg tablet 20 mg PO QPM Primary Care Provider: Care Physician,No Primary Referrals: Mary Collins MD [Med Staff - Active Staff] - 3-5 Days if not improving Print Language: Singaporean Disposition Disposition: Home, Self Care Discharge Date/Time: 12/24/24 00:08 What to do if you have Problems For any increased pain, shortness of breath, bleeding, nausea or vomiting, chest p (more content not included)... Normal [facility] Urine testOrdered By: Kyle Fan on 12-23-2024 HCG ( test) Ql (U) Negative [facility] Comment on above: Very dilute urine sp ecimens, as indicated by a low specificgravity, may not contain technology sales representative levels of hCG. If is still suspected, a first morning urinespecimen should be collected 48 hours later and tested. Emergency Department Summary on 09-24-2024 Emergency Department Summary [facility] Medical Records Department [address] [place] [address] Emergency Department Summary 09/24/24 MR#: [id number] Acct: [id number] Name: PRANEETH PORRAS Rep #: [id number] : 1990 34 From: Jerod Davis DO [...] secondary to this comes in for evaluation. [facility] Medical History Pulmonary embolism Pulmonary embolism Paranoid [...] Denies rash Neurologic Neurologic: Denies headache(s) Hematologic/Lymphatic Hematologic/Lymphatic : Denies easy bleeding or easy bruising EXAM [...] Chief Complaint: Eye Problem ED Provider: Jerod Davis Dx/Rx/DC Orders Clinical Impression: Corneal abrasion, right, Schizophrenia Instructions: ED Corneal Abrasion Prescriptions: New ciprofloxacin HCl 0.3 % drops 2 drp EACH EYE 4X/DAY 7 Days Qty: 10 0RF No Action lurasidone 20 mg tablet 20 mg PO QPM Stand Alone Forms: ED Work / School Excuse Primary Care Prov (more content not included)... Normal [facility] 09-08-2024 [facility] Office Visit (UCWSTR ) PRANEETH PORRAS ([id number]) 1990 F DEF Date Time Provider Department 09/08/24 1:30 PM MILLER KEYES [facility] During your visit today, we recorded the following information about you: Temperature Pulse Respiration Blood pressure 98.8 degrees 80/minute 18/minute 96/61 Weight 57.5 kg Miller Keyes PA 09/08/2024 1:39 PM Signed [facility] Subjective Praneeth Vegasuriel is a 34 year old female. Patient [...] for the (more content not included)... Normal [facility] Emergency Department Summary on 05-20-2024 Emergency Department Summary [facility] Medical Records Department [address] [place] [address] Emergency Department Summary 05/20/24 MR#: [id number] Acct: [id number] Name: PRANEETH PORRAS Rep #: [id number] : 1990 33 From: Fran Nice MD [...] female history of prior pulmonary emboli of [place] filter and paranoid schizophrenia. 2 of her [...] be evaluated. Prior similar symptoms: Yes Recent Illness/Hospitalizati on: No ROS ROS ED ROS Narrative Cough, [...] anxiety Endocrine Endocrinology: Denies cold intolerance Hematologic/Lymphatic Hematologic/Lymphatic : Denies easy bleeding Allergic/Immunologic Allergic/Immunologic ED: Denies [...] S2 normal (more content not included)... Normal [facility] Abdomen/Pelvis W IV Cont ONL Yon 04-15-2024 Abdomen/Pelvis W IV Cont ONLY [facility] Imaging Services [address] [place] [address] Abdomen/Pelvis W IV Cont ONLY MR#: [id number] Acct: [id number] Name: PRANEETH PORRAS Rep #: [id number] : 1990 F 33 From: Rad Shine DO PCP: Care Physician,No Primary Status: REG ER Study: Abdomen/Pelvis W IV Cont ONLY Date of Exam: Exam# [id number] Ordering Dr: Daniel Ch DO [id number] STUDY: CT ABDOMEN AND PELVIS WITH CONTRAST [...] Signed: Rad Shine DO at 16:55 EST Reading Location ID and State: [facility] / [place] Tel [phone], Service support , CC: Dr. Daniel Ch, ; No Primary Care Physician On Car Supervisor: Signed Normal [facility] CBC W/Diff, Automatedon 03-29 Absolute Lymph 1.59 X10 3/uL Normal 0.83-4.51 [facility] Comment on above: Performed By: #### L 500.4050, L501.2450, L100.0100 #### [facility] [address] [place], [address] Absolute Neut 3.7 X10 3/uL Normal 2.0-7.7 [facility] Comment on above: Performed By: #### L 500.4050, L501.2450, L100.0100 #### [facility] [address] [place], [address] Basophils/100 WBC (Bld) 1.2 % High 0-1 [facility] Comment on above: Performed By: #### L 500.4050, L501.2450, L100.0100 #### [facility] [address] [place], [address] Eosinophils/100 WBC (Bld) 2.0 % Normal 0-5 [facility] Comment on above: Performed By: #### L 500.4050, L501.2450, L100.0100 #### [facility] [address] [place], [address] Erythrocyte distribution width (RBC) [Ratio] 13.3 % Normal 11.6-14.6 [facility] Comment on above: Performed By: #### L 500.4050, L501.2450, L100.0100 #### [facility] [address] [place], [address] Hematocrit (Bld) [Volume fraction] 36.5 % Low 37-47 [facility] Comment on above: Performed By: #### L 500.4050, L501.2450, L100.0100 #### [facility] [address] [place], [address] Hemoglobin (Bld) [Mass/Vol] 12.0 g/dL Normal 12.0-15.0 [facility] Comment on above: Performed By: #### L 500.4050, L501.2450, L100.0100 #### [facility] [address] [place], [address] IG% 0.300 Normal 0.0-0.9 [facility] Comment on above: Result Comment: IG% - Immature Granulocytes (promyelocytes, myelocytes and metamyelocytes) > 1% indicates that a LEFT SHIFT is Present. Performed By: #### L 500.4050, L501.2450, L100.0100 #### [facility] [address] [place], [address] Lymphocytes/100 WBC (Bld) 26.5 % Normal 19-41 [facility] Comment on above: Performed By: #### L 500.4050, L501.2450, L100.0100 #### [facility] [address] [place], [address] MCH (RBC) [Entitic mass] 30.8 pg Normal 27.0-32.0 [facility] Comment on above: Performed By: #### L 500.4050, L501.2450, L100.0100 #### [facility] [address] [place], [address] MCHC (RBC) [Mass/Vol] 32.9 g/dL Normal 32-36 [facility] Comment on above: Performed By: #### L 500.4050, L501.2450, L100.0100 #### [facility] [address] [place], [address] MCV (RBC) [Entitic vol] 93.6 fL Normal 81-99 [facility] Comment on above: Performed By: #### L 500.4050, L501.2450, L100.0100 #### [facility] [address] [place], [address] Monocytes/100 WBC (Bld) 8.2 % Normal 0-10 [facility] Comment on above: Performed By: #### L 500.4050, L501.2450, L100.0100 #### [facility] [address] [place], [address] Neutrophils/100 WBC (Bld) 61.8 % Normal 47-70 [facility] Comment on above: Performed By: #### L 500.4050, L501.2450, L100.0100 #### [facility] [address] [place], [address] Nucleated RBC (Bld) [#/Vol] 0 10*3/uL Normal 0-5 [facility] Comment on above: Performed By: #### L 500.4050, L501.2450, L100.0100 #### [facility] [address] [place], [address] Platelet mean volume (Bld) [Entitic vol] 10.9 fL Normal 6.2-12.0 [facility] Comment on above: Performed By: #### L 500.4050, L501.2450, L100.0100 #### [facility] [address] [place], [address] Platelets (Bld) [#/Vol] 240 10*3/uL Normal 150-450 [facility] Comment on above: Performed By: #### L 500.4050, L501.2450, L100.0100 #### [facility] [address] [place], [address] RBC (Bld) [#/Vol] 3.90 10*6/uL Low 4.2-5.[address] [facility] Comment on above: Performed By: #### L 500.4050, L501.2450, L100.0100 #### [facility] [address] [place], [address] RDW SD 45.3 fl High 35.1-43.9 [facility] Comment on above: Performed By: #### L 500.4050, L501.2450, L100.0100 #### [facility] [address] [place], [address] WBC (Bld) [#/Vol] 6.0 10*3/uL Normal 4.4-11.0 [facility] Comment on above: Performed By: #### L 500.4050, L501.2450, L100.0100 #### [facility] [address] [place], [address] [facility] 04-15-2024 Albumin [Mass/Vol] 3.6 g/dL Normal 3.2-5.0 [facility] Comment on above: Performed By: #### L 500.4050, L501.2450, L100.0100 #### [facility] [address] [place], [address] Albumin/Globulin [Mass ratio] 1.1 {ratio} Normal 0.9-2.4 [facility] Comment on above: Performed By: #### L 500.4050, L501.2450, L100.0100 #### [facility] [address] [place], [address] ALK P 49 U/L Normal 45-117 [facility] Comment on above: Performed By: #### L 500.4050, L501.2450, L100.0100 #### [facility] [address] [place], [address] ALT [Catalytic activity/Vol] 24 U/L Normal 13-56 [facility] Comment on above: Performed By: #### L 500.4050, L501.2450, L100.0100 #### [facility] [address] [place], [address] AST [Catalytic activity/Vol] 18 U/L Normal 15-37 [facility] Comment on above: Performed By: #### L 500.4050, L501.2450, L100.0100 #### [facility] [address] [place], [address] Bilirubin [Mass/Vol] 0.20 mg/dL Normal 0.20-1.00 [facility] Comment on above: Result Comment: For patients on eltrombopag therapy, use of Dimension [place] TBIL is not recommended. Performed By: #### L 500.4050, L501.2450, L100.0100 #### [facility] [address] [place], [address] BUN/CRE 16.8 RATIO Normal 10-20 [facility] Comment on above: Performed By: #### L 500.4050, L501.2450, L100.0100 #### [facility] [address] [place], [address] CA,Total 8.5 mg/dL Normal 8.5-10.1 [facility] Comment on above: Performed By: #### L 500.4050, L501.2450, L100.0100 #### [facility] [address] [place], [address] Chloride [Moles/Vol] 108 mmol/L High 98-107 [facility] Comment on above: Performed By: #### L 500.4050, L501.2450, L100.0100 #### [facility] [address] [place], [address] CO2 [Moles/Vol] 27.0 mmol/L Normal 21.0-32.0 [facility] Comment on above: Performed By: #### L 500.4050, L501.2450, L100.0100 #### [facility] [address] [place], [address] Creatinine [Mass/Vol] 0.83 mg/dL Normal 0.55-1.02 [facility] Comment on above: Result Comment: The validity of the calculated GFR GFRAA in patients over 70 years has not been determined. Clinical correlation is essential. Performed By: #### L 500.4050, L501.2450, L100.0100 #### [facility] [address] [place], [address] ECRCL 80.49 ml/min Normal [facility] Comment on above: Performed By: #### L 500.4050, L501.2450, L100.0100 #### [facility] [address] [place], [address] EST GFR - AA 102 mL/min Normal >60 [facility] Comment on above: Result Comment: Afri can Colombian GFR Calc Performed By: #### L 500.4050, L501.2450, L100.0100 #### [facility] [address] [place], [address] GAP 6 Normal 5-15 [facility] Comment on above: Performed By: #### L 500.4050, L501.2450, L100.0100 #### [facility] [address] [place], [address] GFR/1.73 sq M.predicted among non-blacks MDRD (S/P/Bld) [Vol rate/Area] 84 mL/min/{1.73_m2} Normal >60 [facility] Comment on above: Result Comment: Non- GFR Calc Performed By: #### L 500.4050, L501.2450, L100.0100 #### [facility] [address] [place], [address] Globulin (S) [Mass/Vol] 3.3 g/dL Normal 2.2-4.2 [facility] Comment on above: Performed By: #### L 500.4050, L501.2450, L100.0100 #### [facility] [address] [place], [address] Glucose [Mass/Vol] 105 mg/dL Normal 74-106 [facility] Comment on above: Result Comment: Fast ing Glucose result from 100 to 125 mg/dL suggests IMPAIRED HOMEOSTASIS per A.D.A. criteria. Performed By: #### L 500.4050, L501.2450, L100.0100 #### [facility] [address] [place], [address] Potassium [Moles/Vol] 3.2 mmol/L Low 3.5-5.1 [facility] Comment on above: Performed By: #### L 500.4050, L501.2450, L100.0100 #### [facility] [address] [place], [address] Sodium [Moles/Vol] 141 mmol/L Normal 136-145 [facility] Comment on above: Performed By: #### L 500.4050, L501.2450, L100.0100 #### [facility] [address] [place], [address] T PROT 6.9 g/dL Normal 6.4-8.2 [facility] Comment on above: Performed By: #### L 500.4050, L501.2450, L100.0100 #### [facility] [address] [place], [address] Urea nitrogen [Mass/Vol] 14 mg/dL Normal - [facility] Comment on above: Performed By: #### L 500.4050, L501.2450, L100.0100 #### [facility] [address] [place], [address] Emergency Department Summary on 04-15-2024 Emergency Department Summary [facility] Medical Records Department [address] [place] [address] Emergency Department Summary 04/15/24 MR#: [id number] Acct: [id number] Name: PRANEETH PORRAS Rep #: [id number] : 1990 33 From: Daniel Ch DO [...] follow commands knew that she was at [facility] years 2023 Skin: Warm, dry, intact [...] She was advised to 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 She will be given prescription for Bentyl and Zofran. She was advised to return with worsening symptoms or other concerns. All question concerns answered she was discharged home in stable condition. Lab Data Labs: Laboratory (more content not included)... Normal [facility] Lipaseon 04-15-2024 Lipase [Catalytic activity/Vol] 31 U/L Normal 13-75 [facility] Comment on above: Result Comment: Serafin traylor note: LIPASE revised reference range effective 22. New Lipase methodology. Expected to produce lower values than the previous assay method. NEW Reference Range: 13 - 75 U/L Performed By: #### L 500.4050, L501.2450, L100.0100 ####[facility] [address] [place], [address] ,Urineon 04-15-2024 Beta HCG ( test) Ql (U) Negative Normal [facility] Comment on above: Order Comment: CLEAN CATCH Result Comment: Very dilute urine specimens, as indicated by a low specific gravity, may not contain technology sales representative levels of hCG. If is still suspected, a first morning urine specimen should be collected 48 hours later and tested. Performed By: #### L 400.7600, L400.0001 #### [facility] [address] [place], [address] Urinalysis, Completeon 04-15 BACTERIA RARE Normal None Seen [facility] Comment on above: Order Comment: CLEAN CATCH Performed By: #### L 400.7600, L400.0001 #### [facility] [address] [place], [address] Mucus Ql (Urine sed) 3+ /hpf Normal [facility] Comment on above: Order Comment: CLEAN CATCH Performed By: #### L 400.7600, L400.0001 #### [facility] [address] [place], [address] EPI,SQUAMOUS 0-5 SEEN Normal 5-10 [facility] Comment on above: Order Comment: CLEAN CATCH Performed By: #### L 400.7600, L400.0001 #### [facility] [address] [place], [address] RBC 0 SEEN Normal 0-5 [facility] Comment on above: Order Comment: CLEAN CATCH Performed By: #### L 400.7600, L400.0001 #### [facility] [address] [place], [address] WBC 0 SEEN Normal 0-5 [facility] Comment on above: Order Comment: CLEAN CATCH Performed By: #### L 400.7600, L400.0001 #### [facility] [address] [place], [address] [facility] PRANEETH PORRAS ([id number]) 1990 F DEF Date Time Provider Department 11/03/23 ELISE LOMELI [facility] During your visit today, we recorded the following information about you: Elise Lomeli APRN.CNP 11/03/2023 5:42 PM Signed Patient's urine culture [...] - Itching Date Reviewed: 11/02/2023 Reviewed by: Sedrcik Cox - Fully Assessed Reason for Visit: [...] Status:Closed by SEDRICK COX on 11/03/23 Normal [facility] Bacteria Ur Culton 4 Bacteria identified Cx Nom (U) ORGANISM ID: 1 10,000 -<50,000 CFU/ml Normal urogenital blanca Normal [facility] Comment on above: Performed By: #### 6 30-4 #### [facility] CLIA [id number] [address] [place] [address] [facility] CNOVon 11-02-2023 CNOV Office Visit ([facility] ) PRANEETH PORRAS ([id number]) 1990 F DEF Date Time Provider Department 11/02/23 2:45 PM MILLER KEYES [facility] During your visit today, we recorded the following information about you: Temperature Pulse Respiration Blood pressure 97.7 degrees 76/minute 16/minute 122/72 Weight 55.6 kg Miller Keyes PA 11/02/2023 3:05 PM Signed This note was created using [employer]. Subjective Praneeth Vegasuriel is a 33 year old female. HPI [...] ER evalua (more content not included)... Normal [facility] STREP A MOLECULAR (POC)on Procedural Control Valid [facility] Strep A (POCT) Negative Negative [facility] UA DIP, URINE (POC)on 2023 BILIRUBIN UA (POCT) Negative Negative [facility] CLARITY UA (POCT) Clear [facility] COLOR UA (POCT) Yellow [facility] GLUCOSE UA (POCT) Negative Negative mg/dL [facility] Hemoglobin Ql (U) Negative Negative [facility] Interpretation and review of laboratory results Abnormal [facility] KETONE UA (POCT) Trace Negative mg/dL [facility] LEUKOCYTES UA (POCT) Negative Negative [facility] NITRITE UA (POCT) Negative Negative [facility] PH UA (POCT) 6.0 4.5 - 8.0 [facility] Protein Ql (U) Trace Abnormal Negative mg/dL [facility] SPECIFIC GRAVITY UA (POCT) 1.025 1.005 - 1.030 [facility] UROBILINOGEN UA (POCT) 0.2 Adela l E.U./dL [facility] Location:[address], [place], [place], [id number] [place] [address] POINT OF CARE [facility] CTA HEAD AND NECKon 01-25-20 CTA [...] basilar tip are patent. SCA patent bilaterally. SALAD MAKER patent bilaterally. There is takeoff of the SALAD MAKER on the left. Distal SALAD MAKER distributions are symmetric. No large vessel occlusion. DEVELOPMENTAL ANOMALIES: takeoff left SALAD MAKER. Hypoplastic A1 segment right LILIAM. OTHER: No [...] C/o right eye pain. 20g RAC 150mL [id number] given by [employer] Technical problem with scanner after first bolus Normal Rank By Search HCG URINE (PREG)on 3 HCG ( test) Ql (U) Negative Normal [facility] Comment on above: Performed By: #### 4 [id number], [id number] #### TERA MATHEWS (2013) [facility] [address] [place] [address] BASIC METABOLIC PANELon 12-28 Anion gap [Moles/Vol] 14 mmol/L High - [facility] Comment on above: Performed By: #### 4 [id number], [id number] #### TERA MATHEWS (2012) [facility] [address] [place] [address] Calcium [Mass/Vol] 9.7 mg/dL Normal 8.4-10.4 [facility] Comment on above: Performed By: #### 4 [id number], [id number] #### TERA MATHEWS (2012) [facility] [address] [place] [address] Chloride [Moles/Vol] 104 mmol/L Normal 96-109 [facility] Comment on above: Performed By: #### 4 [id number], [id number] #### TERA MATHEWS (2012) [facility] [address] [place] [address] CO2 [Moles/Vol] 21 mmol/L Low 22-30 [facility] Comment on above: Performed By: #### 4 [id number], [id number] #### TERA MATHEWS (2012) [facility] [address] [place] [address] Creatinine [Mass/Vol] 0.76 mg/dL Normal 0.52-1.04 [facility] Comment on above: Performed By: #### 4 [id number], [id number] #### TERA MATHEWS (2012) [facility] [address] [place] [address] GLOMERULAR FILTRATION RATE ML/MIN/1.73 SQ M.PREDICTED >90.0 Normal >=60.[address] [facility] [employer] Comment on above: Result Comment: eGFR calculation [...] Kidney Int Suppl.2013;3:1-150 Performed By: #### 4 [id number], [id number] #### TERA MATHEWS (2012) [facility] [address] [place] [address] Glucose [Mass/Vol] 100 mg/dL Normal 65-100 [facility] Comment on above: Performed By: #### 4 [id number], [id number] #### TERA MATHEWS (2012) [facility] [address] [place] [address] Potassium [Moles/Vol] 3.0 mmol/L Low 3.6-5.1 [facility] Comment on above: Performed By: #### 4 [id number], [id number] #### TERA MATHEWS (2012) [facility] [address] [place] [address] Sodium [Moles/Vol] 139 mmol/L Normal 135-147 [facility] Comment on above: Performed By: #### 4 [id number], [id number] #### TERA MATHEWS (2012) [facility] [address] [place] [address] Urea nitrogen [Mass/Vol] 14 mg/dL Normal 8-[address] [facility] Comment on above: Performed By: #### 4 [id number], [id number] #### TERA MATHEWS (2012) [facility] [address] [place] [address] CBC AND DIFFERENTIALon 01-23 ABSOLUTE BASOPHIL 0.1 x10*3/uL Normal 0.0-0.1 [facility] Comment on above: Performed By: #### 4 [id number] #### TERA MATHEWS (2012) [facility] [address] [place] [address] ABSOLUTE EOSINOPHIL 0.0 x10*3/uL Low 0.1-0.3 [facility] Comment on above: Performed By: #### 4 [id number] #### TERA MATHEWS (2012) [facility] [address] [place] [address] ABSOLUTE IMMATURE GRANULOCYTES 0.0 x10*3/uL Normal 0.0-0.[address] [facility] Comment on above: Performed By: #### 4 [id number] #### TERA MATHEWS (2012) [facility] [address] [place] [address] ABSOLUTE LYMPH 1.7 x10*3/uL Normal 1.2-3.[address] [facility] Comment on above: Performed By: #### 4 [id number] #### TERA MATHEWS (2012) [facility] [address] [place] [address] ABSOLUTE MONO 0.4 x10*3/uL Normal 0.2-0.[address] [facility] Comment on above: Performed By: #### 4 [id number] #### TERA MATHEWS (2012) [facility] [address] [place] [address] ABSOLUTE NEUTROPHIL 4.3 x10*3/uL Normal 2.4-6.6 [facility] [employer] [facility] Comment on above: Performed By: #### 4 [id number] #### TERA MATHEWS (2012) [facility] [address] [place] [address] Basophils/100 WBC (Bld) 0.8 % Normal [facility] Comment on above: Performed By: #### 4 [id number] #### TERA MATHEWS (2012) [facility] [address] [place] [address] Eosinophils/100 WBC (Bld) 0.6 % Normal [facility] Comment on above: Performed By: #### 4 [id number] #### TERA MATHEWS (2012) [facility] [address] [place] [address] Erythrocyte distribution width (RBC) [Ratio] 13.3 % Normal 11.5-14.[address] [facility] Comment on above: Performed By: #### 4 [id number] #### TERA MATHEWS (2012) [facility] [address] [place] [address] Hematocrit (Bld) [Volume fraction] 39.0 % Normal 33.6-46.[address] [facility] Comment on above: Performed By: #### 4 [id number] #### TERA MATHEWS (2012) [facility] [address] [place] [address] Hemoglobin (Bld) [Mass/Vol] 13.3 g/dL Normal 11.7-15.[address] [facility] Comment on above: Performed By: #### 4 [id number] #### TERA MATHEWS (2012) [facility] [address] [place] [address] Immature granulocytes/100 WBC (Bld) 0.2 % Normal [facility] Comment on above: Performed By: #### 4 [id number] #### TERA MATHEWS (2012) [facility] [address] [place] [address] Lymphocytes/100 WBC (Bld) 26.6 % Normal [facility] Comment on above: Performed By: #### 4 [id number] #### TERA MATHEWS (2012) [facility] [address] [place] [address] MCH (RBC) [Entitic mass] 30.8 pg Normal 27.5-32.[address] [facility] Comment on above: Performed By: #### 4 [id number] #### TERA MATHEWS (2012) [facility] [address] [place] [address] MCHC (RBC) [Mass/Vol] 34.1 g/dL Normal 30.7-35.5 [facility] Comment on above: Performed By: #### 4 [id number] #### TERA MATHEWS (2012) [facility] [address] [place] [address] MCV (RBC) [Entitic vol] 90.3 fL Normal 80.2-[address] [facility] Comment on above: Performed By: #### 4 [id number] #### TERA MATHEWS (2012) [facility] [address] [place] [address] Monocytes/100 WBC (Bld) 5.7 % Normal [facility] Comment on above: Performed By: #### 4 [id number] #### TERA MATHEWS (2012) [facility] [address] [place] [address] Neutrophils/100 WBC (Bld) 66.1 % Normal [facility] Comment on above: Performed By: #### 4 [id number] #### TERA MATHEWS (2012) [facility] [address] [place] [address] PLATELET COUNT 233 x10*3/uL Normal 150-[address] [facility] Comment on above: Performed By: #### 4 [id number] #### TERA MATHEWS (2012) [facility] [address] [place] [address] RED BLOOD CELL COUNT 4.32 x10*6/uL Normal 3.60-5.20 [facility] Comment on above: Performed By: #### 4 [id number] #### TERA MATHEWS (2012) [facility] [address] [place] [address] WHITE BLOOD CELLS 6.5 x10*3/uL Normal 4.3-10.3 [facility] Comment on above: Performed By: #### 4 [id number] #### TERA MATHEWS (2012) [facility] [address] [place] [address] CBC AND DIFFERENTIALon 11-23 ABSOLUTE BASOPHIL 0.1 x10*3/uL Normal 0.0-0.1 [facility] Comment on above: Performed By: #### 4 [id number], [id number] #### TERA MATHEWS (2012) [facility] [address] [place] [address] ABSOLUTE EOSINOPHIL 0.2 x10*3/uL Normal 0.1-0.3 [facility] Comment on above: Performed By: #### 4 [id number], [id number] #### TERA MATHEWS (2012) [facility] [address] [place] [address] ABSOLUTE IMMATURE GRANULOCYTES 0.0 x10*3/uL Normal 0.0-0.[address] [facility] Comment on above: Performed By: #### 4 [id number], [id number] #### TERA MATHEWS (2012) [facility] [address] [place] [address] ABSOLUTE LYMPH 2.5 x10*3/uL Normal 1.2-3.[address] [facility] Comment on above: Performed By: #### 4 [id number], [id number] #### TERA MATHEWS (2012) [facility] [address] [place] [address] ABSOLUTE MONO 0.4 x10*3/uL Normal 0.2-0.[address] [facility] Comment on above: Performed By: #### 4 [id number], [id number] #### TERA MATHEWS (2012) [facility] [address] [place] [address] ABSOLUTE NEUTROPHIL 3.1 x10*3/uL Normal 2.4-6.6 [facility] Comment on above: Performed By: #### 4 [id number], [id number] #### TERA MATHEWS (2012) [facility] [address] [place] [address] Basophils/100 WBC (Bld) 1.0 % Normal [facility] Comment on above: Performed By: #### 4 [id number], [id number] #### TERA MATHEWS (2012) [facility] [address] [place] [address] Eosinophils/100 WBC (Bld) 3.3 % Normal [facility] Comment on above: Performed By: #### 4 [id number], [id number] #### TERA MATHEWS (2012) [facility] [address] [place] [address] Erythrocyte distribution width (RBC) [Ratio] 12.8 % Normal 11.5-14.[address] [facility] Comment on above: Performed By: #### 4 [id number], [id number] #### TERA MATHEWS (2012) [facility] [place] [address] Hematocrit (Bld) [Volume fraction] 40.2 % Normal 33.6-46.[address] [facility] Comment on above: Performed By: #### 4 [id number], [id number] #### TERA MATHEWS (2012) [facility] [address] [place] [address] Hemoglobin (Bld) [Mass/Vol] 13.4 g/dL Normal 11.7-15.[address] [facility] Comment on above: Performed By: #### 4 [id number], [id number] #### TERA MATHEWS (2012) [facility] [address] [place] [address] Immature granulocytes/100 WBC (Bld) 0.0 % Normal [facility] Comment on above: Performed By: #### 4 [id number], [id number] #### TERA MATHEWS (2012) [facility] [address] [place] [address] Lymphocytes/100 WBC (Bld) 40.0 % Normal [facility] Comment on above: Performed By: #### 4 [id number], [id number] #### TERA MATHEWS (2012) [facility] [address] [place] [address] MCH (RBC) [Entitic mass] 31.1 pg Normal 27.5-32.[address] [facility] Comment on above: Performed By: #### 4 [id number], [id number] #### TERA MATHEWS (2012) [facility] [address] [place] [address] MCHC (RBC) [Mass/Vol] 33.3 g/dL Normal 30.7-35.5 [facility] Comment on above: Performed By: #### 4 [id number], [id number] #### TERA MATHEWS (2012) [facility] [address] [place] [address] MCV (RBC) [Entitic vol] 93.3 fL Normal 80.2-[address] [facility] Comment on above: Performed By: #### 4 [id number], [id number] #### TERA MATHEWS (2012) [facility] [address] [place] [address] Monocytes/100 WBC (Bld) 6.9 % Normal [facility] Comment on above: Performed By: #### 4 [id number], [id number] #### TERA MATHEWS (2012) [facility] [address] [place] [address] Neutrophils/100 WBC (Bld) 48.8 % Normal [facility] Comment on above: Performed By: #### 4 [id number], [id number] #### TERA MATHEWS (2012) [facility] [address] [place] [address] PLATELET COUNT 264 x10*3/uL Normal 150-[address] [facility] Comment on above: Performed By: #### 4 [id number], [id number] #### TERA MATHEWS (2012) [facility] [address] [place] [address] RED BLOOD CELL COUNT 4.31 x10*6/uL Normal 3.60-5.20 [facility] Comment on above: Performed By: #### 4 [id number], [id number] #### TERA MATHEWS (2012) [facility] [address] [place] [address] WHITE BLOOD CELLS 6.3 x10*3/uL Normal 4.3-10.3 [facility] Comment on above: Performed By: #### 4 [id number], [id number] #### TERA MATHEWS (2012) [facility] [address] [place] [address] CBC with DifferentialOrdered By: Background Lab on 11-23-2022 Absolute Immature Granulocytes 0.0 [facility] Age [Time] 93.3 fL 80.2 - 99 fL [facility] Age [Time] 31.1 pg 27.5 - 32.3 pg [facility] Age [Time] 33.3 g/dL 30.7 - 35.5 g/dL [facility] B. burgdorferi IgM IB Ql (CSF) 40.0 % [facility] Basophils (Bld) [#/Vol] 0.1 10*3/uL [facility] Basophils/100 WBC (Body fld) 1.0 % [facility] Eosinophils (Bld) [#/Vol] 2.5 10*3/uL [facility] Eosinophils (Bld) [#/Vol] 0.4 10*3/uL [facility] Eosinophils (Bld) [#/Vol] 0.2 10*3/uL [facility] Eosinophils/100 WBC (Bld) 3.3 % [facility] Erythrocyte distribution width (RBC) [Ratio] 12.8 % 11.5 - 14.5 % [facility] Hematocrit (Bld) [Volume fraction] 40.2 % 33.6 - 46.8 % [facility] Hexanoylglycine (U) [Moles/Vol] 13.4 g/dL 11.7 - 15.8 g/dL [facility] Immature granulocytes/100 WBC (Bld) 0.0 % [facility] Monocytes/100 WBC (Bld) 6.9 % [facility] Neurotensin (P) [Mass/Vol] 48.8 % [facility] Neutrophils (Bld) [#/Vol] 3.1 10*3/uL [facility] Platelets (Bld) [#/Vol] 264 10*3/uL [facility] RBC (Bld) [#/Vol] 4.31 10*6/uL [facility] WBC LM Ql (Sput) 6.[address] [facility] COMPREHENSIVE METABOLIC PANE Carlos 11-23-2022 Albumin [Mass/Vol] 4.6 g/dL Normal 3.5-5.0 [facility] Comment on above: Performed By: #### 4 [id number], [id number] #### TERA MATHEWS (2012) [facility] [address] [place] [address] ALK PHOS 54 U/L Normal 24-126 [facility] Comment on above: Performed By: #### Norah [id number], [id number] #### TERA MATHEWS (2012) [facility] [address] [place] [address] ALT [Catalytic activity/Vol] 17 U/L Normal 4-35 [facility] Comment on above: Performed By: #### Norah [id number], [id number] #### TERA MATHEWS (2012) [facility] [address] [place] [address] Anion gap [Moles/Vol] 8 mmol/L Normal 8-12 [facility] Comment on above: Performed By: #### Norah [id number], [id number] #### TERA MATHEWS (2012) [facility] [address] [place] [address] AST [Catalytic activity/Vol] 28 U/L Normal 3-47 [facility] Comment on above: Performed By: #### 4 [id number], [id number] #### TERA MATHEWS (2012) [facility] [address] [place] [address] Bilirubin [Mass/Vol] 0.4 mg/dL Normal 0.2-1.6 [facility] Comment on above: Performed By: #### 4 [id number], [id number] #### TERA MATHEWS (2012) [facility] [address] [place] [address] Calcium [Mass/Vol] 10.6 mg/dL High 8.4-10.4 [facility] Comment on above: Performed By: #### 4 [id number], [id number] #### TERA MATHEWS (2012) [facility] [address] [place] [address] Chloride [Moles/Vol] 103 mmol/L Normal 96-109 [facility] Comment on above: Performed By: #### 4 [id number], [id number] #### TERA MATHEWS (2012) [facility] [address] [place] [address] CO2 [Moles/Vol] 30 mmol/L Normal 22-30 [facility] Comment on above: Performed By: #### 4 [id number], [id number] #### TERA MATHEWS (2012) [facility] [address] [place] [address] Creatinine [Mass/Vol] 0.82 mg/dL Normal 0.52-1.04 [facility] Comment on above: Performed By: #### 4 [id number], [id number] #### TERA MATHEWS (2012) [facility] [address] [place] [address] GLOMERULAR FILTRATION RATE ML/MIN/1.73 SQ M.PREDICTED >90.0 Normal >=60.0 [facility] Comment on above: Result Comment: eGFR calculation [...] Kidney Int Suppl.2013;3:1-150 Performed By: #### 4 [id number], [id number] #### TERA MATHEWS (2012) [facility] [address] [place] [address] Glucose [Mass/Vol] 93 mg/dL Normal 65-100 [facility] Comment on above: Performed By: #### 4 [id number], [id number] #### TERA MATHEWS (2012) [facility] [address] [place] [address] Potassium [Moles/Vol] 3.8 mmol/L Normal 3.6-5.1 [facility] Comment on above: Performed By: #### 4 [id number], [id number] #### TERA MATHEWS (2012) [facility] [address] [place] [address] Protein [Mass/Vol] 7.9 g/dL Normal 6.3-8.2 [facility] Comment on above: Performed By: #### 4 [id number], [id number] #### TERA MATHEWS (2012) [facility] [address] [place] [address] Sodium [Moles/Vol] 141 mmol/L Normal 135-147 [facility] Comment on above: Performed By: #### 4 [id number], [id number] #### TERA MATHEWS (2012) [facility] [address] [place] [address] Urea nitrogen [Mass/Vol] 11 mg/dL Normal 8-26 [facility] Comment on above: Performed By: #### 4 [id number], [id number] #### TERA MATHEWS (2012) [facility] [address] [place] [address] CT ABDOMEN PELVIS WITH IV CO NTRASTon [...] and low back pain 20g LAC 100mL [id number] by JCchuckyran Normal [place] acquired by [facility] CT Abdomen and Pelvis W cont rast Ava 11-23-2022 No acute intra-abdominal inflammatory process identified. [facility] CT ABDOMEN PELVIS WITH IV CONTRAST: 11/23/2022 [...] normal limits. The osseous structures appear unremarkable. Aviva Waters MD - 11/23/2022 CT ABDOMEN PELVIS WITH [...] IMPRESSION: No acute intra-abdominal inflammatory process identified. [facility] Radiology Study observation (narrative) [facility] CT Abdomen and Pelvis W cont rast IVOrdered By: Aviva Baez on 11-23-2022 [facility] Work Phone: Comprehensive metabolic 2000 panelon 11-23-2022 Albumin (Syn fld) [Mass/Vol] 4.6 g/dL 3.5 - 5.0 g/dL [facility] Aldosterone (U) [Mass/Vol] 54 U/L 24 - 126 U/L [facility] ALT [Catalytic activity/Vol] 17 U/L 4 - 35 U/L [facility] Anion gap [Moles/Vol] 8 mmol/L 8 - 12 mmol/L [facility] AST [Catalytic activity/Vol] 28 U/L 3 - 47 U/L [facility] Bilirubin [Mass/Vol] 0.4 mg/dL 0.2 - 1 .6 mg/dL [facility] Calcium [Mass/Vol] 10.6 mg/dL High 8.4 - 10. 4 mg/dL [facility] Calcium hydrogen phosphate dihydrate crystals LM Ql (Urine sed) 11 mg/dL 8 - 26 mg/dL [facility] Chloride [Moles/Vol] 103 mmol/L 96 - 10 9 mmol/L [facility] CMV IgM IF Ql 30 mmol/L 22 - 30 mmol/L [facility] Creatinine [Mass/Vol] 0.82 mg/dL 0.52 - 1.04 mg/dL [facility] GFR/1.73 sq M.predicted MDRD (S/P/Bld) [Vol rate/Area] - PINF [facility] Comment on above: eGFR calculation bas ed [...] [Mass/Vol] 93 mg/dL 65 - 100 mg/dL [facility] Interpretation and review of laboratory results Abnormal [facility] Potassium [Moles/Vol] 3.8 mmol/L 3.6 - 5.1 mmol/L [facility] Protein [Mass/Vol] 7.9 g/dL 6.3 - 8.2 g/dL [facility] Sodium [Moles/Vol] 141 mmol/L 135 - 147 mmol/L [facility] LACTATEon 11-23-2022 Lactate [Moles/Vol] 0.7 mmol/L Normal 0.7-2.0 [facility] Comment on above: Performed By: #### 4 [id number] #### TERA MATHEWS (2012) [facility] [address] [facility] [place] [address] LIPASEon 11-23-2022 Lipase [Catalytic activity/Vol] 72 U/L Normal 23-300 [facility] Comment on above: Performed By: #### 4 [id number], [id number] #### TERA MATHEWS (2012) [facility] [address] [place] [address] Lactate - ED and Inpatient: A result >2 mmol/L will create an auto-follow up lactate order to be drawn in 2 hours.on 11-23-2022 Interpretation and review of laboratory results Normal [facility] Lactate [Moles/Vol] 0.7 mmol/L 0.7 - 2. 0 mmol/L [facility] Lipaseon 11-23-2022 Interpretation and review of laboratory results Normal [facility] Lipase [Catalytic activity/Vol] 72 U/L 23 - 300 U/L [facility] No Panel Informationon 11-23 [facility] POCT ED/FC/SURG Urine Pregon 11-23-2022 Beta HCG ( test) Ql (U) Negative [facility] Interpretation and review of laboratory results Normal [facility] Collar Runner Acceptable YES [facility] URINE CHEM STRIP ONLYon 10-28 Appearance (U) Cloudy Normal [facility] Comment on above: Performed By: #### 4 [id number] #### TERA MATHEWS (2012) [facility] [address] [place] [address] BILIRUBIN UA Negative Normal Negative [facility] Comment on above: Performed By: #### 4 [id number] #### TERA MATHEWS (2012) [facility] [address] [place] [address] Color (U) Dark Yellow Normal [facility] Comment on above: Performed By: #### 4 [id number] #### TERA MATHEWS (2012) [facility] [address] [place] [address] Glucose Ql (U) Negative Normal Negative [facility] Comment on above: Performed By: #### 4 [id number] #### TERA MATHEWS (2012) [facility] [address] [place] [address] Ketones Ql (U) Trace Abnormal Negative [facility] Comment on above: Performed By: #### 4 [id number] #### TERA MATHEWS (2012) [facility] [address] [place] [address] LEUKOESTERASE Moderate Abnormal Negative [facility] Comment on above: Performed By: #### 4 [id number] #### TERA MATHEWS (2012) [facility] [address] [place] [address] Nitrite Ql (U) Negative Normal Negative [facility] Comment on above: Performed By: #### 4 [id number] #### TERA MATHEWS (2012) [facility] [address] [place] [address] OCCULT BLD Moderate Abnormal Negative [facility] Comment on above: Performed By: #### 4 [id number] #### TERA MATHEWS (2012) [facility] [address] [place] [address] PH, URINE 5.5 Normal [facility] Comment on above: Performed By: #### 4 [id number] #### TERA MATHEWS (2012) [facility] [address] [facility] [place] [address] Protein Ql (U) Negative Normal Negative [facility] Comment on above: Performed By: #### 4 [id number] #### TERA MATHEWS (2012) [facility] [address] [place] [address] SPECIFIC GRAVITY, URINE 1.[address] [facility] Comment on above: Performed By: #### 4 [id number] #### TERA MATHEWS (2012) [facility] [address] [facility] [place] [address] UROBILINOGEN UA <2.0 Normal <2.[address] [facility] Comment on above: Performed By: #### 4 [id number] #### TERA MATHEWS (2012) [facility] [address] [facility] [place] [address] Urine DipOrdered By: Alexia cazares on 11-23-2022 Acetone [Mass/Vol] Trace Abnormal Negative [facility] Appearance (Body fld) Cloudy [facility] Bilirubin Ql (U) Negative Negative [facility] Color (Stone) Dark Yellow [facility] G6PD (RBC) [Catalytic activity/Vol] Negative Negative [facility] Hemoglobin.gastrointes tinal (Stl) [Mass/Mass] Moderate Abnormal Negative [facility] Interpretation and review of laboratory results Abnormal [facility] Leukocyte esterase Test strip Ql (U) Moderate Abnormal Negative [facility] Nitrite Test strip (U) [Mass/Vol] Negative Negative [facility] pH (Gillian fld) 5.[address] [facility] Protein (U) [Mass/Vol] Negative Negative [facility] Specific gravity (U) [Rel density] 1.[address] [facility] Urobilinogen Qn (U) <2.0 NINF - 2.0 [facility] GC AND CHLAMYDIA AMPLIFIED P ROBEon 11-16-2022 GC AND CHLAMYDIA AMPLIFIED PROBE GC AMPLIFIED MO Positive Negative CHLAMYDIA, DNA PROBE Negative Negative Normal Negative [facility] Comment on above: Performed By: #### 4 [id number], [id number] #### TERA MATHEWS (2012) [facility] [address] [place] [address] TRICHOMONAS AMPLIFIED PROBEo n 11-16-2022 TRICHOMONAS AMPLIFIED PROBE Negative Normal Negative [facility] Comment on above: Performed By: #### 4 [id number], [id number] #### TERA MATHEWS (2013) [facility] [address] [place] [address] URINALYSIS WITH REFLEX CULTU REon 11-16-2022 Appearance (U) Cloudy Normal [facility] Comment on above: Performed By: #### 4 [id number] #### [address] BILIRUBIN UA Negative Normal Negative [facility] Comment on above: Performed By: #### 4 [id number] #### [address] Color (U) Yellow Normal [facility] Comment on above: Performed By: #### 4 [id number] #### [address] Glucose Ql (U) Negative Normal Negative [facility] Comment on above: Performed By: #### 4 [id number] #### [address] Ketones Ql (U) Negative Normal Negative [facility] Comment on above: Performed By: #### 4 [id number] #### [address] LEUKOESTERASE Large Abnormal Negative [facility] Comment on above: Performed By: #### 4 [id number] #### [address] Nitrite Ql (U) Negative Normal Negative [facility] Comment on above: Performed By: #### 4 [id number] #### [address] OCCULT BLD Moderate Abnormal Negative [facility] Comment on above: Performed By: #### 4 [id number] #### [place] [address] [place] PH, URINE 5.[address] [facility] Comment on above: Performed By: #### 4 [id number] #### [address] Protein Ql (U) Negative Normal Negative [facility] Comment on above: Performed By: #### 4 [id number] #### [place] [address] [place] RBC LM.HPF (Urine sed) [#/Area] 3 /[HPF] Normal <=5 [facility] Comment on above: Performed By: #### 4 [id number] #### [address] SPECIFIC GRAVITY, URINE 1.011 Normal [facility] Comment on above: Performed By: #### 4 [id number] #### [address] SQUAMOUS EPI CELLS 7 /LPF Normal [facility] Comment on above: Performed By: #### 4 [id number] #### [address] UROBILINOGEN UA Negative Normal <2.0 [facility] Comment on above: Performed By: #### 4 [id number] #### [address] WBC LM.HPF (Urine sed) [#/Area] 100 /[HPF] High <=5 [facility] Comment on above: Performed By: #### 4 [id number] #### [address] URINE CULTUREon 11-16-2022 Bacteria identified Cx Nom (U) URINE CULTURE, ROUTINE Mixed skin and fecal blanca Normal [facility] Comment on above: Order Comment: >100, 000/mL Performed By: #### 4 [id number], [id number] #### TERA MATHEWS (2013) [facility] [address] [place] [address] GC AND CHLAMYDIA AMPLIFIED P ROBEon 10-20-2022 GC AND CHLAMYDIA AMPLIFIED PROBE GC AMPLIFIED MO Negative Negative CHLAMYDIA, DNA PROBE Positive Negative Abnormal Negative [facility] Comment on above: Performed By: #### 4 [id number] #### [address] URINE CULTUREon 10-20-2022 Bacteria identified Cx [...] SMX Susc Islt R >=320 F Resistant [facility] [employer] Comment on above: Performed By: #### 4 [id number], [id number] #### TERA MATHEWS (2012) [facility] [address] [place] [address] BETA-HCG QUANTITATIVE SERUM( DO NOT USE FOR TUMOR MARKER, SEE [id number])on 09-26-2022 GONADOTROPIN, CHORIONIC (HCG) QUANT <2.4 Normal See Comment Rank By Search Comment on above: Result Comment: HCG REFERENCE RANGE: ?Non- female ? ? ?<5 mIU/mL ? Gestational Age (weeks) ? ? ?hCG Mean (mIU/mL) ? ?1-10 ?31,142 ?11-15 ? 55,425 ? ? ?16-22 ? 27,023 ? ? ?23-40 ? 24,031 ? Performed By: #### 4 [id number], [id number] #### TERA MATHEWS (2012) [facility] [address] [place] [address] CBC AND DIFFERENTIALon 09-26 ABSOLUTE BASOPHIL 0.0 x10*3/uL Normal 0.0-0.1 [facility] [employer] Comment on above: Performed By: #### 4 [id number], [id number] #### TERA MATHEWS (2012) [facility] [address] [place] [address] ABSOLUTE EOSINOPHIL 0.1 x10*3/uL Normal 0.1-0.3 [facility] Comment on above: Performed By: #### 4 [id number], [id number] #### TERA MATHEWS (2012) [facility] [address] [place] [address] ABSOLUTE IMMATURE GRANULOCYTES 0.0 x10*3/uL Normal 0.0-0.[address] [facility] Comment on above: Performed By: #### 4 [id number], [id number] #### TERA MATHEWS (2012) [facility] [address] [place] [address] ABSOLUTE LYMPH 1.2 x10*3/uL Normal 1.2-3.[address] [facility] Comment on above: Performed By: #### 4 [id number], [id number] #### TERA MATHEWS (2012) [facility] [address] [place] [address] ABSOLUTE MONO 0.3 x10*3/uL Normal 0.2-0.[address] [facility] Comment on above: Performed By: #### 4 [id number], [id number] #### TERA MATHEWS (2012) [facility] [address] [place] [address] ABSOLUTE NEUTROPHIL 3.0 x10*3/uL Normal 2.4-6.6 [facility] Comment on above: Performed By: #### 4 [id number], [id number] #### TERA MATHEWS (2012) [facility] [address] [place] [address] Basophils/100 WBC (Bld) 0.9 % Normal [facility] Comment on above: Performed By: #### 4 [id number], [id number] #### TERA MATHEWS (2012) [facility] [address] [place] [address] Eosinophils/100 WBC (Bld) 1.5 % Normal [facility] Comment on above: Performed By: #### 4 [id number], [id number] #### TERA MATHEWS (2012) [facility] [address] [place] [address] Erythrocyte distribution width (RBC) [Ratio] 13.9 % Normal 11.5-14.[address] [facility] Comment on above: Performed By: #### 4 [id number], [id number] #### TERA MATHEWS (2012) [facility] [address] [place] [address] Hematocrit (Bld) [Volume fraction] 40.3 % Normal 33.6-46.[address] [facility] Comment on above: Performed By: #### 4 [id number], [id number] #### TERA MATHEWS (2012) [facility] [address] [place] [address] Hemoglobin (Bld) [Mass/Vol] 13.2 g/dL Normal 11.7-15.[address] [facility] Comment on above: Performed By: #### 4 [id number], [id number] #### TERA MATHEWS (2012) [facility] [address] [place] [address] Immature granulocytes/100 WBC (Bld) 0.0 % Normal [facility] Comment on above: Performed By: #### 4 [id number], [id number] #### TERA MATHEWS (2012) [facility] [address] [place] [address] Lymphocytes/100 WBC (Bld) 27.0 % Normal [facility] Comment on above: Performed By: #### 4 [id number], [id number] #### TERA MATHEWS (2012) [facility] [address] [place] [address] MCH (RBC) [Entitic mass] 30.8 pg Normal 27.5-32.3 [facility] Comment on above: Performed By: #### 4 [id number], [id number] #### TERA MATHEWS (2012) [facility] [address] [place] [address] MCHC (RBC) [Mass/Vol] 32.8 g/dL Normal 30.7-35.5 [facility] Comment on above: Performed By: #### 4 [id number], [id number] #### TERA MATHEWS (2012) [facility] [address] [place] [address] MCV (RBC) [Entitic vol] 93.9 fL Normal 80.2-[address] [facility] Comment on above: Performed By: #### 4 [id number], [id number] #### TERA MATHEWS (2012) [facility] [address] [place] [address] Monocytes/100 WBC (Bld) 5.5 % Normal [facility] Comment on above: Performed By: #### 4 [id number], [id number] #### TERA MATHEWS (2012) [facility] [address] [place] [address] Neutrophils/100 WBC (Bld) 65.1 % Normal [facility] Comment on above: Performed By: #### 4 [id number], [id number] #### TERA MATHEWS (2012) [facility] [address] [place] [address] PLATELET COUNT 179 x10*3/uL Normal 150-[address] [facility] Comment on above: Performed By: #### 4 [id number], [id number] #### TERA MATHEWS (2012) [facility] [address] [place] [address] RED BLOOD CELL COUNT 4.29 x10*6/uL Normal 3.60-5.20 [facility] Comment on above: Performed By: #### 4 [id number], [id number] #### TERA MATHEWS (2012) [facility] [address] [facility] [place] [address] WHITE BLOOD CELLS 4.6 x10*3/uL Normal 4.3-10.3 [facility] Comment on above: Performed By: #### 4 [id number], [id number] #### TERA MATHEWS (2012) [facility] [address] [facility] [place] [address] CBC with differentialon 05-0 Absolute Immature Granulocytes 0.0 [facility] Age [Time] 93.9 fL 80.2 - 99 fL [facility] Age [Time] 30.8 pg 27.5 - 32.[address] [facility] Age [Time] 32.8 g/dL 30.7 - 35.5 g/dL [facility] B. burgdorferi IgM IB Ql (CSF) 27.0 % [facility] Basophils (Bld) [#/Vol] 0.0 10*3/uL [facility] Basophils/100 WBC (Body fld) 0.9 % [facility] Eosinophils (Bld) [#/Vol] 1.2 10*3/uL [facility] Eosinophils (Bld) [#/Vol] 0.3 10*3/uL [facility] Eosinophils (Bld) [#/Vol] 0.1 10*3/uL [facility] Eosinophils/100 WBC (Bld) 1.5 % [facility] Erythrocyte distribution width (RBC) [Ratio] 13.9 % 11.5 - 14.5 % [facility] Hematocrit (Bld) [Volume fraction] 40.3 % 33.6 - 46.8 % [facility] Hexanoylglycine (U) [Moles/Vol] 13.2 g/dL 11.7 - 15.8 g/dL [facility] Immature granulocytes/100 WBC (Bld) 0.0 % [facility] Monocytes/100 WBC (Bld) 5.5 % [facility] Neurotensin (P) [Mass/Vol] 65.1 % [facility] Neutrophils (Bld) [#/Vol] 3.0 10*3/uL [facility] Platelets (Bld) [#/Vol] 179 10*3/uL [facility] RBC (Bld) [#/Vol] 4.29 10*6/uL [facility] WBC LM Ql (Sput) 4.6 [facility] COMPREHENSIVE METABOLIC PANE Carlos 09-26-2022 Albumin [Mass/Vol] 4.5 g/dL Normal 3.5-5.0 [facility] Comment on above: Performed By: #### 4 [id number], [id number] #### TERA MATHEWS (2012) [facility] [address] [place] [address] ALK PHOS 43 U/L Normal 24-126 [facility] Comment on above: Performed By: #### 4 [id number], [id number] #### TERA MATHEWS (2012) [facility] [address] [place] [address] ALT [Catalytic activity/Vol] 17 U/L Normal 4-35 [facility] Comment on above: Performed By: #### 4 [id number], [id number] #### TERA MATHEWS (2012) [facility] [address] [place] [address] Anion gap [Moles/Vol] 9 mmol/L Normal 8-12 [facility] Comment on above: Performed By: #### 4 [id number], [id number] #### TERA MATHEWS (2012) [facility] [address] [place] [address] AST [Catalytic activity/Vol] 21 U/L Normal 3-[address] [facility] Comment on above: Performed By: #### 4 [id number], [id number] #### TERA MATHEWS (2012) [facility] [address] [place] [address] Bilirubin [Mass/Vol] 0.5 mg/dL Normal 0.2-1.6 [facility] Comment on above: Performed By: #### 4 [id number], [id number] #### TERA MATHEWS (2012) [facility] [address] [place] [address] Calcium [Mass/Vol] 9.6 mg/dL Normal 8.4-10.4 [facility] Comment on above: Performed By: #### 4 [id number], [id number] #### TERA MATHEWS (2012) [facility] [address] [place] [address] Chloride [Moles/Vol] 103 mmol/L Normal 96-109 [facility] Comment on above: Performed By: #### 4 [id number], [id number] #### TERA MATHEWS (2012) [facility] [address] [place] [address] CO2 [Moles/Vol] 26 mmol/L Normal 22-30 [facility] Comment on above: Performed By: #### 4 [id number], [id number] #### TERA MATHEWS (2012) [facility] [address] [place] [address] Creatinine [Mass/Vol] 0.61 mg/dL Normal 0.52-1.04 [facility] Comment on above: Performed By: #### 4 [id number], [id number] #### TERA MATHEWS (2012) [facility] [address] [place] [address] GLOMERULAR FILTRATION RATE ML/MIN/1.73 SQ M.PREDICTED >90.0 Normal >=60.0 [facility] Comment on above: Result Comment: eGFR calculation [...] Kidney Int Suppl.2013;3:1-150 Performed By: #### 4 [id number], [id number] #### TERA MATHEWS (2012) [facility] [address] [place] [address] Glucose [Mass/Vol] 93 mg/dL Normal 65-100 [facility] Comment on above: Performed By: #### 4 [id number], [id number] #### TERA MATHEWS (2012) [facility] [address] [place] [address] Potassium [Moles/Vol] 3.6 mmol/L Normal 3.6-5.1 [facility] Comment on above: Performed By: #### 4 [id number], [id number] #### TERA MATHEWS (2012) [facility] [address] [place] [address] Protein [Mass/Vol] 7.7 g/dL Normal 6.3-8.2 [facility] Comment on above: Performed By: #### 4 [id number], [id number] #### TERA MATHEWS (2012) [facility] [address] [place] [address] Sodium [Moles/Vol] 138 mmol/L Normal 135-147 [facility] Comment on above: Performed By: #### 4 [id number], [id number] #### TERA MATHEWS (2012) [facility] [address] [place] [address] Urea nitrogen [Mass/Vol] 15 mg/dL Normal 8-26 [facility] Comment on above: Performed By: #### 4 [id number], [id number] #### TERA MATHEWS (2012) [facility] [address] [place] [address] Comprehensive metabolic 2000 panelon 09-26-2022 Albumin (Syn fld) [Mass/Vol] 4.5 g/dL 3.5 - 5.0 g/dL [facility] Aldosterone (U) [Mass/Vol] 43 U/L 24 - 126 U/L [facility] ALT [Catalytic activity/Vol] 17 U/L 4 - 35 U/L [facility] Anion gap [Moles/Vol] 9 mmol/L 8 - 12 mmol/L [facility] AST [Catalytic activity/Vol] 21 U/L 3 - 47 U/L [facility] Bilirubin [Mass/Vol] 0.5 mg/dL 0.2 - 1 .6 mg/dL [facility] Calcium [Mass/Vol] 9.6 mg/dL 8.4 - 10. 4 mg/dL [facility] Calcium hydrogen phosphate dihydrate crystals LM Ql (Urine sed) 15 mg/dL 8 - 26 mg/dL [facility] Chloride [Moles/Vol] 103 mmol/L 96 - 10 9 mmol/L [facility] CMV IgM IF Ql 26 mmol/L 22 - 30 mmol/L [facility] Creatinine [Mass/Vol] 0.61 mg/dL 0.52 - 1.04 mg/dL [facility] GFR/1.73 sq M.predicted MDRD (S/P/Bld) [Vol rate/Area] - PINF [facility] Comment on above: eGFR calculation bas ed [...] [Mass/Vol] 93 mg/dL 65 - 100 mg/dL [facility] Potassium [Moles/Vol] 3.6 mmol/L 3.6 - 5.1 mmol/L [facility] Protein [Mass/Vol] 7.7 g/dL 6.3 - 8.2 g/dL [facility] Sodium [Moles/Vol] 138 mmol/L 135 - 147 mmol/L [facility] HCG Qn (U)Ordered By: Ayleen Mcconnell on 09-26-2022 Beta HCG ( test) Ql (U) Negative [facility] HCG URINE (PREG)on 3 HCG ( test) Ql (U) Negative Normal [facility] Comment on above: Performed By: #### 4 [id number], [id number] #### TERA MATHEWS (2012) [facility] [address] [place] [address] HCG [Moles/Vol]on 09-26-2022 HCG Qn See Comment mIU/mL [facility] Comment on above: HCG REFERENCE RANGE: Non- female <5 mIU/mL Gestational Age (weeks) hCG Mean (mIU/mL) 1-10 31,142 11-15 55,425 16-22 27,023 23-40 24,031 [facility] LIPASEon 09-26-2022 Lipase [Catalytic activity/Vol] 48 U/L Normal 23-300 [facility] Comment on above: Performed By: #### 4 [id number], [id number] #### TERA MATHEWS (2012) [facility] [address] [place] [address] Lipaseon 09-26-2022 Lipase [Catalytic activity/Vol] 48 U/L 23 - 300 U/L [facility] No Panel Informationon 09-26 Interpretation and review of laboratory results Normal [facility] POCT ED/FC/SURG Urine Pregon 09-26-2022 Beta HCG ( test) Ql (U) Negative [facility] Interpretation and review of laboratory results Normal [facility] Collar Runner Acceptable yes [facility] URINE CHEM STRIP ONLYon Appearance (U) Clear Normal [facility] Comment on above: Performed By: #### 4 [id number], [id number] #### TERA MATHEWS (2012) [facility] [address] [place] [address] BILIRUBIN UA Negative Normal Negative [facility] Comment on above: Performed By: #### 4 [id number], [id number] #### TERA MATHEWS (2012) [facility] [address] [place] [address] Color (U) Light Yellow Normal [facility] Comment on above: Performed By: #### 4 [id number], [id number] #### TERA MATHEWS (2012) [facility] [address] [place] [address] Glucose Ql (U) Negative Normal Negative [facility] Comment on above: Performed By: #### 4 [id number], [id number] #### TERA MATHEWS (2012) [facility] [address] [place] [address] Ketones Ql (U) Negative Normal Negative [facility] Comment on above: Performed By: #### 4 [id number], [id number] #### TERA MATHEWS (2012) [facility] [address] [place] [address] LEUKOESTERASE Negative Normal Negative [facility] Comment on above: Performed By: #### 4 [id number], [id number] #### TERA MATHEWS (2012) [facility] [address] [place] [address] Nitrite Ql (U) Negative Normal Negative [facility] Comment on above: Performed By: #### 4 [id number], [id number] #### TERA MATHEWS (2012) [facility] [address] [place] [address] OCCULT BLD Negative Normal Negative [facility] Comment on above: Performed By: #### 4 [id number], [id number] #### TERA MATHEWS (2012) [facility] [address] [place] [address] PH, URINE 7.0 Normal [facility] Comment on above: Performed By: #### 4 [id number], [id number] #### TERA MATHEWS (2012) [facility] [address] [place] [address] Protein Ql (U) Negative Normal Negative [facility] Comment on above: Performed By: #### 4 [id number], [id number] #### TERA MATHEWS (2012) [facility] [address] [place] [address] SPECIFIC GRAVITY, URINE 1.010 Normal [facility] Comment on above: Performed By: #### 4 [id number], [id number] #### TERA MATHEWS (2013) [facility] [address] [employer] [place] [address] UROBILINOGEN UA <2.0 Normal <2.0 [facility] Comment on above: Performed By: #### 4 [id number], [id number] #### TERA MATHEWS (2013) [facility] [address] [place] [address] US Ovary for torsionon 09-26 AGE-APPROPRIATE UTERUS AND OVARIES. : [facility] EXAM: US PELVIS-TORSION STUDY HISTORY: left sided [...] No dominant ovarian cyst. No pelvic ascites. [facility] Roshan Mary MD - 09/26/2022 EXAM: US PELVIS-TORSION STUDY [...] ascites. IMPRESSION: AGE-APPROPRIATE UTERUS AND OVARIES. : [facility] Radiology Study observation (narrative) [facility] US Ovary for torsionOrdered By: Roshan Mary on 09-26-2022 [facility] [employer] Work Phone: US PELVIS-TORSION STUDYon US PELVIS-TORSION [...] Order Comments: Ordering Physician: Jeanie Menjivar APRN COMPUTER ASSEMBLER Dose: Normal Rank By Search Urine DipOrdered By: [facility] on 09-26-2022 Acetone [Mass/Vol] Negative Negative [facility] Appearance (Body fld) Clear Gen [facility] Bilirubin Ql (U) Negative Negative [facility] Color (Stone) Light Yellow [facility] G6PD (RBC) [Catalytic activity/Vol] Negative Negative Rank By Search Hemoglobin.gastrointes tinal (Stl) [Mass/Mass] Negative Negative Rank [employer] Search Leukocyte esterase Test strip Ql (U) Negative Negative [facility] Nitrite Test strip (U) [Mass/Vol] Negative Negative [facility] pH (Gillian fld) 7.0 [facility] Protein (U) [Mass/Vol] Negative Negative [facility] Specific gravity (U) [Rel density] 1.010 [facility] Urobilinogen Qn (U) <2.0 NINF - 2.0 [facility] Vitamin D 25 OHon 09-01-2021 Vitamin D 25 [place] 19.3 ng/mL Low >29.9 [facility] Comment on above: Result Comment: Reference Range: Vitamin D status Range Deficiency <20 ng/mL Mild Deficiency 20-30 ng/mL Sufficiency 30-100 ng/mL Toxicity >100 ng/mL [facility] [address] [place] [address] ([phone] Basic Metabolic Panelon Anion gap [Moles/Vol] 8 mmol/L Low 9-15 [facility] Comment on above: Performed By: #### B MP #### [facility] [address] [place] [address] Calcium [Mass/Vol] 9.0 mg/dL Normal 8.5-9.9 [facility] Comment on above: Performed By: #### B MP #### [facility] [address] [place] [address] Chloride [Moles/Vol] 104 mmol/L Normal 95-107 [facility] Comment on above: Performed By: #### B MP #### [facility] [address] [place] [address] CO2 [Moles/Vol] 25 mmol/L Normal 20-31 [facility] Comment on above: Performed By: #### B MP #### [facility] [address] [place] [address] Creatinine [Mass/Vol] 0.59 mg/dL Normal 0.50-0.90 [facility] Comment on above: Performed By: #### B MP #### [facility] [address] [place] [address] GFR >60.0 Normal >60 [facility] Comment on above: Result Comment: >60 mL/min/1.73m2 EGFR, calc. for ages 18 and older using the MDRD formula (not corrected for weight), is valid for stable renal function. Performed By: #### B MP #### [facility] [address] [place] [address] GFR/1.73 sq M.predicted among blacks MDRD (S/P/Bld) [Vol rate/Area] mL/min/{1.73_m2} Normal >60 [facility] Comment on above: Result Comment: >60 mL/min/1.73m2 EGFR, calc. for ages 18 and older using the MDRD formula (not corrected for weight), is valid for stable renal function. Performed By: #### B MP #### [facility] [address] [place] [address] Glucose [Mass/Vol] 88 mg/dL Normal 70-99 [facility] Comment on above: Performed By: #### B MP #### [facility] [address] [place] [address] Potassium [Moles/Vol] 4.1 mmol/L Normal 3.4-4.9 [facility] Comment on above: Performed By: #### B MP #### [facility] [address] [place] [address] Sodium [Moles/Vol] 137 mmol/L Normal 135-144 [facility] Comment on above: Performed By: #### B MP #### [facility] [address] [place] [address] Urea nitrogen [Mass/Vol] 14 mg/dL Normal 6-20 [facility] Comment on above: Performed By: #### B MP #### [facility] [address] [place] [address] CBC With Platelet No Differe ntialon 08-31-2021 Erythrocyte distribution width (RBC) [Ratio] 19.2 % Critically high 11.5-14.5 [facility] Comment on above: Performed By: #### C BCND #### [facility] [address] [place] [address] Hematocrit (Bld) [Volume fraction] 33.4 % Low 37.0-47.0 [facility] Comment on above: Performed By: #### C BCND #### [facility] [address] [place] [address] Hemoglobin (Bld) [Mass/Vol] 10.7 g/dL Low 12.0-16.0 [facility] Comment on above: Performed By: #### C BCND #### [facility] [address] [place] [address] MCH (RBC) [Entitic mass] 28.8 pg Normal 27.0-31.3 [facility] Comment on above: Performed By: #### C BCND #### [facility] [address] [place] [address] MCHC 32.2 % Low 33.0-37.0 [facility] Comment on above: Performed By: #### C BCND #### [facility] [address] [place] [address] MCV (RBC) [Entitic vol] 89.5 fL Normal 82.0-100.0 [facility] Comment on above: Performed By: #### C BCND #### [facility] [address] [place] [address] Platelets (Bld) [#/Vol] 264 10*3/uL Normal 130-400 [facility] Comment on above: Performed By: #### C BCND #### [facility] [address] [place] [address] RBC (Bld) [#/Vol] 3.73 10*6/uL Low 4.20-5.40 [facility] Comment on above: Performed By: #### C BCND #### [facility] [address] [place] [address] WBC (Bld) [#/Vol] 4.9 10*3/uL Normal 4.8-10.8 [facility] Comment on above: Performed By: #### C BCND #### [facility] [address] [place] [address] Lipid Panelon 08-31-2021 Cholesterol [Mass/Vol] 219 mg/dL Critically high 0-199 [facility] Comment on above: Result Comment: ATP III Cholesterol Classification is Borderline High. Performed By: #### L IPID #### [facility] [address] [place] [address] Cholesterol in HDL [Mass/Vol] 69 mg/dL Critically high 40-59 [facility] Comment on above: Result Comment: ATP III [...] CHD Performed By: #### L IPID #### [facility] [address] [place] [address] Cholesterol in LDL [Mass/Vol] 132 mg/dL Critically high 0-129 [facility] Comment on above: Result Comment: ATT III Classification is Borderline High. Performed By: #### L IPID #### [facility] [address] [place] [address] Triglyceride [Mass/Vol] 92 mg/dL Normal 0-150 [facility] Comment on above: Result Comment: ATP III Triglycerides Classification is Normal. Performed By: #### L IPID #### [facility] [address] [place] [address] [place] Levelon 08-31-2021 [place] [Moles/Vol] 0.6 mmol/L Normal 0.6-1.2 [facility] Comment on above: Performed By: #### L ITH #### [facility] [address] [place] [address] TSH w/out Reflexon TSH w/out Reflex 2.710 uIU/mL Normal 0.440-3.86 [facility] Comment on above: Performed By: #### T SH #### [facility] [address] [place] [address] CBC with Diffon 08-26-2021 Abs. Basophil 0.07 k/uL Normal 0.00-0.20 [facility] Comment on above: Performed By: #### U HCG, UAX, UMICAO #### [facility] [address] [place] [address] Can Closing Machine Tender: Tami Villanueva MD Abs.Imm.Granulocyte <0.03 Normal 0.00-0.30 [facility] Comment on above: Performed By: #### U HCG, UAX, UMICAO #### [facility] [address] [place] [address] Can Closing Machine Tender: Tami Villanueva MD Abs.Neutrophil (Seg) 4.50 k/uL Normal 1.50-8.10 [facility] Comment on above: Performed By: #### U HCG, UAX, UMICAO #### [facility] [address] [place], [place] [address]483 Can Closing Machine Tender: Tami Villanueva MD Basophils/100 WBC (Bld) 1 % Normal 0-2 [facility] Comment on above: Performed By: #### U HCG, UAX, UMICAO #### [facility] [address] [place], [place] [address] Can Closing Machine Tender: Tami Villanueva MD Eosinophils (Bld) [#/Vol] 0.14 10*3/uL Normal 0.00-0.44 [facility] Comment on above: Performed By: #### U HCG, UAX, UMICAO #### [facility] [address] [place], [place] [address] Can Closing Machine Tender: Tami Villanueva MD Eosinophils/100 WBC (Bld) 2 % Normal 1-4 [facility] Comment on above: Performed By: #### U HCG, UAX, UMICAO #### [facility] [address] [place] [address] Dr. [place], [facility]83 Can Closing Machine Tender: Tami Villanueva MD Erythrocyte distribution width (RBC) [Ratio] 18.1 % High 11.8-14.4 [facility] Comment on above: Performed By: #### U HCG, UAX, UMICAO #### [facility] [address] [place] [address] Dr. [place], [facility]83 Can Closing Machine Tender: Tami Villanueva MD Hematocrit (Bld) [Volume fraction] 36.8 % Normal 36.3-47.1 [facility] Comment on above: Performed By: #### U HCG, UAX, UMICAO #### [facility] [address] [place], [place] [address] Can Closing Machine Tender: Tami Villanueva MD Hemoglobin (Bld) [Mass/Vol] 11.8 g/dL Low 11.9-15.1 [facility] Comment on above: Performed By: #### U HCG, UAX, UMICAO #### [facility] [address] [place], [place] [address] Can Closing Machine Tender: Tami Villanueva MD Immature granulocytes/100 WBC (Bld) 0 % Normal 0 [facility] Comment on above: Performed By: #### U HCG, UAX, UMICAO #### [facility] [address] [place], [place] [address]483 Can Closing Machine Tender: Tami Villanueva MD Lymphocytes (Bld) [#/Vol] 1.40 10*3/uL Normal 1.10-3.70 [facility] Comment on above: Performed By: #### U HCG, UAX, UMICAO #### [facility] [address] [place], [place] 8859483 Can Closing Machine Tender: Tami Villanueva MD Lymphocytes/100 WBC (Bld) 22 % Low 24-43 [facility] Comment on above: Performed By: #### U HCG, UAX, UMICAO #### [address] [place], [place] [address]83 Can Closing Machine Tender: Tami Villanueva MD MCH (RBC) [Entitic mass] 28.4 pg Normal 25.2-33.5 [facility] Comment on above: Performed By: #### U HCG, UAX, UMICAO #### [address] [place], [facility]83 Can Closing Machine Tender: Tami Villanueva MD MCHC (RBC) [Mass/Vol] 32.1 g/dL Normal 28.4-34.8 [facility] Comment on above: Performed By: #### U HCG, UAX, UMICAO #### [facility] [address] [place], [place] 5159383 Can Closing Machine Tender: Tami Villanueva MD MCV (RBC) [Entitic vol] 88.7 fL Normal 82.6-102.9 [facility] Comment on above: Performed By: #### U HCG, UAX, UMICAO #### [facility] [address] [place], [place] [address]255683 Can Closing Machine Tender: Tami Villanueva MD Monocytes (Bld) [#/Vol] 0.29 10*3/uL Normal 0.10-1.20 [facility] Comment on above: Performed By: #### U HCG, UAX, UMICAO #### [facility] [address] [place], [place] 6312383 Can Closing Machine Tender: Tami Villanueva MD Monocytes/100 WBC (Bld) 5 % Normal 3-12 [facility] Comment on above: Performed By: #### U HCG, UAX, UMICAO #### [facility] [address] [place], [place] [address]83 Can Closing Machine Tender: Tami Villanueva MD Neutrophil (Seg) 70 % High 36-65 [facility] Comment on above: Performed By: #### U HCG, UAX, UMICAO #### [facility] [address] [place], [place] 2568183 Can Closing Machine Tender: Tami Villanueva MD NRBC Automated 0.0 per 100 WBC Normal 0.0 [facility] Comment on above: Performed By: #### U HCG, UAX, UMICAO #### [facility] [address] [place], [facility]83 Can Closing Machine Tender: Tami Villanueva MD Platelet mean volume (Bld) [Entitic vol] 10.1 fL Normal 8.1-13.5 [facility] Comment on above: Performed By: #### U HCG, UAX, UMICAO #### [facility] [address] [place] [address] Can Closing Machine Tender: Tami Villanueva MD Platelets (Bld) [#/Vol] 366 10*3/uL Normal 138-453 [facility] Comment on above: Performed By: #### U HCG, UAX, UMICAO #### [facility] [address] [place] [address] Can Closing Machine Tender: Tami Villanueva MD RBC (Bld) [#/Vol] 4.15 10*6/uL Normal 3.95-5.11 [facility] Comment on above: Performed By: #### U HCG, UAX, UMICAO #### [facility] [address] [place] [address] Can Closing Machine Tender: Tami Villanueva MD WBC (Bld) [#/Vol] 6.4 10*3/uL Normal 3.5-11.3 [facility] Comment on above: Performed By: #### U HCG, UAX, UMICAO #### [address] [place] [address] Can Closing Machine Tender: Tami Villanueva MD Comp Metabolic Profon 2021 (cont.) Normal [facility] Comment on above: Result Comment: Aver age GFR for 30-39 years old: 107 mL/min/1.73sq m Chronic Kidney Disease: <60 mL/min/1.73sq m Kidney failure: <15 mL/min/1.73sq m eGFR calculated using average adult body mass. Additional eGFR calculator available at: http://[email or web address].Animated Speech/multiple_crcl_2012.htm Performed By: #### U HCG, UAX, UMICAO #### [facility] [address] [place] [address] [place] [address] Can Closing Machine Tender: Tami Villanueva MD Albumin [Mass/Vol] 4.5 g/dL Normal 3.5-5.2 [facility] Comment on above: Performed By: #### U HCG, UAX, UMICAO #### [facility] [address] [place] [address] Can Closing Machine Tender: Tami Villanueva MD Albumin/Glob Ratio 1.7 Normal 1.0-2.5 [facility] Comment on above: Performed By: #### U HCG, UAX, UMICAO #### [facility] [address] [place], [place] [address] Can Closing Machine Tender: Tami Villanueva MD Alkaline Phos 57 U/L Normal 35-104 [facility] Comment on above: Performed By: #### U HCG, UAX, UMICAO #### [facility] [address] [place], [place] [address]83 Can Closing Machine Tender: Tami Villanueva MD ALT [Catalytic activity/Vol] 31 U/L Normal 5-33 [facility] Comment on above: Performed By: #### U HCG, UAX, UMICAO #### [facility] [address] [place], [place] [address]683 Can Closing Machine Tender: Tami Villanueva MD Anion gap [Moles/Vol] 10 mmol/L Normal 9-17 [facility] Comment on above: Performed By: #### U HCG, UAX, UMICAO #### [facility] [address] [place], [place] 3099283 Can Closing Machine Tender: Tami Villanueva MD AST [Catalytic activity/Vol] 22 U/L Normal <32 [facility] Comment on above: Performed By: #### U HCG, UAX, UMICAO #### [facility] [address] [place], [place] [address]83 Can Closing Machine Tender: Tami Villanueva MD Bilirubin [Mass/Vol] 0.16 mg/dL Low 0.3-1.2 [facility] Comment on above: Performed By: #### U HCG, UAX, UMICAO #### [facility] [address] [place] [address] Can Closing Machine Tender: Tami Villanueva MD BUN/CRE Ratio 31 High 9-20 [facility] Comment on above: Performed By: #### U HCG, UAX, UMICAO #### [facility] [address] [place], [place] [address]83 Can Closing Machine Tender: Tami Villanueva MD Calcium [Mass/Vol] 9.6 mg/dL Normal 8.6-10.4 [facility] Comment on above: Performed By: #### U HCG, UAX, UMICAO #### [facility] [address] [place], [place] [address]28783 Can Closing Machine Tender: Tami Villanueva MD Chloride [Moles/Vol] 103 mmol/L Normal 98-107 [facility] Comment on above: Performed By: #### U HCG, UAX, UMICAO #### [facility] [address] [place] [address] Can Closing Machine Tender: Tami Villanueva MD CO2 [Moles/Vol] 26 mmol/L Normal 20-31 [facility] Comment on above: Performed By: #### U HCG, UAX, UMICAO #### [facility] [address] [place], [place] [address]83 Can Closing Machine Tender: Tami Villanueva MD Creatinine [Mass/Vol] 0.58 mg/dL Normal 0.50-0.90 [facility] Comment on above: Performed By: #### U HCG, UAX, UMICAO #### [facility] [address] [place] [address] Dr. [place], [place] [address] Can Closing Machine Tender: Tami Villanueva MD GFR, Amer >60 Normal >60 [facility] Comment on above: Performed By: #### U HCG, UAX, UMICAO #### [facility] [address] [place] [address] Can Closing Machine Tender: Tami Villanueva MD GFR,non Amer >60 Normal >60 [facility] Comment on above: Performed By: #### U HCG, UAX, UMICAO #### [facility] [address] [place] [address] Can Closing Machine Tender: Tami Villanueva MD Glucose [Mass/Vol] 96 mg/dL Normal 70-99 [facility] Comment on above: Performed By: #### U HCG, UAX, UMICAO #### [facility] [address] [place] [address] Can Closing Machine Tender: Tami Villanueva MD Potassium [Moles/Vol] 3.2 mmol/L Low 3.7-5.3 [facility] Comment on above: Performed By: #### U HCG, UAX, UMICAO #### [facility] [address] [place], [place] [id number] Can Closing Machine Tender: Tami Villanueva MD Protein [Mass/Vol] 7.2 g/dL Normal 6.4-8.3 [facility] Comment on above: Performed By: #### U HCG, UAX, UMICAO #### [facility] [address] [place] [address] Can Closing Machine Tender: Tami Villanueva MD Sodium [Moles/Vol] 139 mmol/L Normal 135-144 [facility] Comment on above: Performed By: #### U HCG, UAX, UMICAO #### [address] [place], [place] [address] Can Closing Machine Tender: Tami Villanueva MD Staging: Normal [facility] Comment on above: Result Comment: Stag e 1: Some kidney damage normal GFR Stage 2: Mild kidney damage GFR 60-89 Stage 3: Moderate kidney damage GFR 30-59 Stage 4: Severe kidney damage GFR 15-29 Stage 5: Severe kidney damage GFR <15 ESRD - chronic treatment by dialysis or transplant Performed By: #### U HCG, UAX, UMICAO #### [facility] [address] [place] [address] Can Closing Machine Tender: Tami Villanueva MD Urea nitrogen [Mass/Vol] 18 mg/dL Normal 6-20 [facility] Comment on above: Performed By: #### U HCG, UAX, UMICAO #### [facility] [address] [place], [place] [id number] Can Closing Machine Tender: Tami Villanueva MD Drug Scr, Abuse, Uron 2021 Amphetamine(s),Ur Negative Normal NEG [facility] Comment on above: Performed By: #### U HCG, UAX, UMICAO #### [facility] [address] [place], [place] [address]2383 Can Closing Machine Tender: Tami Villanueva MD Barbiturate(s),Ur Negative Normal NEG [facility] Comment on above: Performed By: #### U HCG, UAX, UMICAO #### [facility] [address] [place], [place] 115[address]183 Can Closing Machine Tender: Tami Villanueva MD Benzodiazepine(s) Negative Normal NEG [facility] Comment on above: Performed By: #### U HCG, UAX, UMICAO #### [facility] [address] [place], [place] 7985783 Can Closing Machine Tender: Tami Villanueva MD Buprenorphrine, Ur Negative Normal [facility] Comment on above: Performed By: #### U HCG, UAX, UMICAO #### [facility] [address] [place], [place] 5438783 Can Closing Machine Tender: Tami Villanueva MD Cannabinoid(s),Ur Positive Abnormal NEG [facility] Comment on above: Performed By: #### U HCG, UAX, UMICAO #### [facility] [address] [place], [place] 3903383 Can Closing Machine Tender: Tami Villanueva MD Cocaine Metabolite Negative Normal [facility] Comment on above: Performed By: #### U HCG, UAX, UMICAO #### [facility] [address] [place], [place] 7046183 Can Closing Machine Tender: Tami Villanueva MD Methadone Ql (U) Negative Normal NEG [facility] Comment on above: Performed By: #### U HCG, UAX, UMICAO #### [facility] [address] [place], [place] 7424083 Can Closing Machine Tender: Tami Villanueva MD Methamphetamine, Ur Negative Normal NEG [facility] Comment on above: Performed By: #### U HCG, UAX, UMICAO #### [facility] [address] [place], [place] 184[address]83 Can Closing Machine Tender: Tami Villanueva MD Opiate(s), Ur Negative Normal NEG [facility] Comment on above: Performed By: #### U HCG, UAX, UMICAO #### [facility] [address] [place], [place] [address]38[address]83 Can Closing Machine Tender: Tami Villanueva MD Oxycodone, Urine Negative Normal [facility] Comment on above: Performed By: #### U HCG, UAX, UMICAO #### [facility] [address] [place], [place] 557[address]83 Can Closing Machine Tender: Tami Villanueva MD Phencyclidine, Ur Negative Normal [facility] Comment on above: Performed By: #### U HCG, UAX, UMICAO #### [facility] [address] [place], [place] 820[address]83 Can Closing Machine Tender: Tami Villanueva MD Propoxyphene,Urine Negative Normal [facility] Comment on above: Performed By: #### U HCG, UAX, UMICAO #### [facility] [address] [place], [place] 768[address]83 Can Closing Machine Tender: Tami Villanueva MD Tricyclic antidepressants Screen Ql (U) Negative Normal [facility] Comment on above: Result Comment: Drug screen results are to be used for medical purposes only. All positive results are unconfirmed. Testing for employment or legal uses should be sent to a reference laboratory for confirmation. Performed By: #### U HCG, UAX, UMICAO #### [facility] [address] [place] [address] Can Closing Machine Tender: Tami Villanueva MD Ethanol Alcoholon 08-26-2021 Ethanol [Mass/Vol] mg/dL Normal <10 [facility] Comment on above: Performed By: #### A LCB #### [facility] [address] [place] [address] Can Closing Machine Tender: Tami Villanueva MD Ethanol percent <0.010 Normal <0.010 [facility] Comment on above: Performed By: #### A LCB #### [facility] [address] [place] [address] Can Closing Machine Tender: Tami Villanueva MD HCG Screen, Bloodon 08-27-19 HCG Screen, Blood Negative Normal NEG [facility] Comment on above: Result Comment: Spec imens with hCG levels near the threshold of the test (25 mIU/mL) may give a negative or indeterminate result. In such cases, another test should be performed with a new specimen in 48-72 hours. If early is suspected clinically in this setting, correlation with quantitative serum b-hCG level is suggested. [facility] has confirmed the use of plasma for this test. This has not been cleared or approved by the U.[place]. Food and Drug Administration. The FDA has determined that such clearance is not necessary. Performed By: #### U HCG, UAX, UMICAO #### [facility] [address] [place] [address] Can Closing Machine Tender: Tami Villanueva MD [id number] 08-26-2021 SARS-CoV-2 (COVID-19) RNA AMARA+probe Ql (Unsp spec) Not detected Normal NOTDET [facility] Comment on above: Result Comment: Rapid NAAT: [...] management decisions. Fact sheet for Healthcare Providers: https://www.fda.gov/media/589713/download Fact sheet for Patients: https://www.fda.gov/media/097351/download Methodology: Isothermal Nucleic Acid Amplification Performed By: #### U HCG, UAX, UMICAO #### [address] [place] [address] Can Closing Machine Tender: Tami Villanueva MD UA w/Reflex Cultureon 2021 Bilirubin, SemiQt,Ur Negative Normal NEG [facility] Comment on above: Performed By: #### U HCG, UAX, UMICAO #### [address] [place] [address] Can Closing Machine Tender: Tami Villanueva MD Blood, Urine Negative Normal NEG [facility] Comment on above: Performed By: #### U HCG, UAX, UMICAO #### [address] [place] [address] Can Closing Machine Tender: Tami Villanueva MD Clarity (U) Clear Normal CLEAR [facility] Comment on above: Performed By: #### U HCG, UAX, UMICAO #### [facility] [address] [place] [address] [place] [address] Can Closing Machine Tender: Tami Villanueva MD Color (U) Yellow Normal YEL [facility] Comment on above: Performed By: #### U HCG, UAX, UMICAO #### [facility] [address] [place] [address] [place] [address] Can Closing Machine Tender: Tami Villanueva MD Glucose Ql (U) Negative Normal NEG [facility] Comment on above: Performed By: #### U HCG, UAX, UMICAO #### [facility] [address] [place] [address] Can Closing Machine Tender: Tami Villanueva MD Ketones Ql (U) Negative Normal NEG [facility] Comment on above: Performed By: #### U HCG, UAX, UMICAO #### [facility] [address] [place] [address] Can Closing Machine Tender: Tami Villanueva MD Leukocyte esterase Test strip Ql (U) TRACE Abnormal NEG [facility] Comment on above: Performed By: #### U HCG, UAX, UMICAO #### [address] [place] [address] Can Closing Machine Tender: Tami Villanueva MD Nitrite,Ur Negative Normal NEG [facility] Comment on above: Performed By: #### U HCG, UAX, UMICAO #### [facility] [address] [place] [address] Can Closing Machine Tender: Tami Villanueva MD PH,Ur 6.0 Normal 5.0-9.0 [facility] Comment on above: Performed By: #### U HCG, UAX, UMICAO #### [address] [place], [place] 1760583 Can Closing Machine Tender: Tami Villanueva MD Protein Ql (U) Negative Normal NEG [facility] Comment on above: Performed By: #### U HCG, UAX, UMICAO #### [facility] [address] [place], [place] [phone] Can Closing Machine Tender: Tami Villanueva MD Spec. [place],Ur 1.015 Normal 1.010-1.020 [facility] Comment on above: Performed By: #### U HCG, UAX, UMICAO #### [facility] [address] [place] [address] Dr[place], [place] 0067183 Can Closing Machine Tender: Tami Villanueva MD Urobilinogen,Ur Normal Normal NORM [facility] Comment on above: Performed By: #### U HCG, UAX, UMICAO #### [facility] [address] [place] [address] Can Closing Machine Tender: Tami Villanueva MD Urinalysis,Microon 2 ----- Normal [facility] Comment on above: Performed By: #### U HCG, UAX, UMICAO #### [facility] [address] [place], [place] 047[address]83 Can Closing Machine Tender: Tami Villanueva MD Epithelial cells LM Ql (Urine sed) 0 TO 2 Normal 0-25 [facility] Comment on above: Performed By: #### U HCG, UAX, UMICAO #### [facility] [address] [place] [address] [place], [place] 2663683 Can Closing Machine Tender: Tami Villanueva MD Urine RBC's 0 TO 2 Normal 0-2 [facility] Comment on above: Performed By: #### U HCG, UAX, UMICAO #### [facility] [address] [place] [address] [place], [place] 2336983 Can Closing Machine Tender: Tami Villanueva MD Urine WBC's 2 TO 5 Normal 0-5 [facility] Comment on above: Performed By: #### U HCG, UAX, UMICAO #### [facility] [address] [place] [address] Can Closing Machine Tender: Tami Villanueva MD CBCon 08-16-2021 Erythrocyte distribution width (RBC) [Ratio] 17.7 % High 11.8-14.4 [facility] Comment on above: Performed By: #### U HCG, UAX, UMICAO #### [facility] [address] [place] [address] Can Closing Machine Tender: Tami Villanueva MD Hematocrit (Bld) [Volume fraction] 37.7 % Normal 36.3-47.1 [facility] Comment on above: Performed By: #### U HCG, UAX, UMICAO #### [facility] [address] [place], [place] 8446283 Can Closing Machine Tender: Tami Villanueva MD Hemoglobin (Bld) [Mass/Vol] 11.8 g/dL Low 11.9-15.1 [facility] Comment on above: Performed By: #### U HCG, UAX, UMICAO #### [facility] [address] [place], [place] 3821583 Can Closing Machine Tender: Tami Villanueva MD MCH (RBC) [Entitic mass] 28.5 pg Normal 25.2-33.5 [facility] Comment on above: Performed By: #### U HCG, UAX, UMICAO #### [address] [place], [facility]83 Can Closing Machine Tender: Tami Villanueva MD MCHC (RBC) [Mass/Vol] 31.3 g/dL Normal 28.4-34.8 [facility] Comment on above: Performed By: #### U HCG, UAX, UMICAO #### [address] [place], [place] 0560383 Can Closing Machine Tender: Tami Villanueva MD MCV (RBC) [Entitic vol] 91.1 fL Normal 82.6-102.9 [facility] Comment on above: Performed By: #### U HCG, UAX, UMICAO #### [facility] [address] [place], [place] 0044283 Can Closing Machine Tender: Tami Villanueva MD NRBC Automated 0.0 per 100 WBC Normal 0.0 [facility] Comment on above: Performed By: #### U HCG, UAX, UMICAO #### [facility] [address] [place], [place] 598[address]83 Can Closing Machine Tender: Tami Villanueva MD Platelet mean volume (Bld) [Entitic vol] 10.6 fL Normal 8.1-13.5 [facility] Comment on above: Performed By: #### U HCG, UAX, UMICAO #### [facility] [address] [place], [place] 3130583 Can Closing Machine Tender: Tami Villanueva MD Platelets (Bld) [#/Vol] 262 10*3/uL Normal 138-453 [facility] Comment on above: Performed By: #### U HCG, UAX, UMICAO #### [facility] [address] [place], [place] 4965683 Can Closing Machine Tender: Tami Villanueva MD RBC (Bld) [#/Vol] 4.14 10*6/uL Normal 3.95-5.11 [facility] Comment on above: Performed By: #### U HCG, UAX, UMICAO #### [facility] [address] [place], [place] 6997483 Can Closing Machine Tender: Tami Villanueva MD WBC (Bld) [#/Vol] 5.7 10*3/uL Normal 3.5-11.3 [facility] Comment on above: Performed By: #### U HCG, UAX, UMICAO #### [facility] [address] [place], [place] 265[address]83 Can Closing Machine Tender: Tami Villanueva MD Hematocrit (Bld) [Volume fraction] 37.7 % 36.3 - 47.1 % [facility] Hemoglobin.gastrointes tinal spec 1 Ql (Stl) 11.8 g/dL Low 11.9 - 15.1 g/dL [facility] Interpretation and review of laboratory results Abnormal [facility] MCH (RBC) [Entitic mass] 28.5 pg 25.2 - 33.5 pg [facility] MCHC (RBC) [Mass/Vol] 31.3 g/dL 28.4 - 34.8 g/dL [facility] MCV (RBC) [Entitic vol] 91.1 fL 82.6 - 102.9 fL [facility] NRBC Automated 0.0 0.0 per 100 WBC [facility] Platelet distribution width (Bld) [Ratio] 17.7 % High 11.8 - 14.4 % [facility] Platelet mean volume (Bld) [Entitic vol] 10.6 fL 8.1 - 13.5 fL [facility] Platelets (Bld) [#/Vol] 262 10*3/uL [facility] RBC (Bld) [#/Vol] 4.14 10*6/uL 3.95 - 5.1 1 m/uL [facility] WBC (Bld) [#/Vol] 5.7 10*3/uL [facility] Comp Metabolic Profon 2021 (cont.) Normal [facility] Comment on above: Result Comment: Aver age GFR for 30-39 years old: 107 mL/min/1.73sq m Chronic Kidney Disease: <60 mL/min/1.73sq m Kidney failure: <15 mL/min/1.73sq m eGFR calculated using average adult body mass. Additional eGFR calculator available at: http://www.[employer]/multiple_crcl_2012.htm Performed By: #### U HCG, UAX, UMICAO #### [facility] [address] [place] [address] Can Closing Machine Tender: Tami Villanueva MD Albumin [Mass/Vol] 3.7 g/dL Normal 3.5-5.2 [facility] Comment on above: Performed By: #### U HCG, UAX, UMICAO #### [facility] [address] [place] [address] Can Closing Machine Tender: Tami Villanueva MD Albumin/Glob Ratio 1.4 Normal 1.0-2.5 [facility] Comment on above: Performed By: #### U HCG, UAX, UMICAO #### [facility] [address] [place] [address] Can Closing Machine Tender: Tami Villanueva MD Alkaline Phos 46 U/L Normal 35-104 [facility] Comment on above: Performed By: #### U HCG, UAX, UMICAO #### [facility] [address] [place], [place] 3874983 Can Closing Machine Tender: Tami Villanueva MD ALT [Catalytic activity/Vol] 12 U/L Normal 5-33 [facility] Comment on above: Performed By: #### U HCG, UAX, UMICAO #### [facility] [address] [place], [place] 7469483 Can Closing Machine Tender: Tami Villanueva MD Anion gap [Moles/Vol] 10 mmol/L Normal 9-17 [facility] Comment on above: Performed By: #### U HCG, UAX, UMICAO #### [facility] [address] [place], [place] 3783083 Can Closing Machine Tender: Tami Villanueva MD AST [Catalytic activity/Vol] 13 U/L Normal <32 [facility] Comment on above: Performed By: #### U HCG, UAX, UMICAO #### [facility] [address] [place], [place] 5210483 Can Closing Machine Tender: Tami Villanueva MD Bilirubin [Mass/Vol] mg/dL Low 0.3-1.2 [facility] Comment on above: Performed By: #### U HCG, UAX, UMICAO #### [facility] [address] [place], [place] 065[address]83 Can Closing Machine Tender: Tami Villanueva MD BUN/CRE Ratio 25 High 9-20 [facility] Comment on above: Performed By: #### U HCG, UAX, UMICAO #### [facility] [address] [place], [place] 9382783 Can Closing Machine Tender: Tami Villanueva MD Calcium [Mass/Vol] 8.9 mg/dL Normal 8.6-10.4 [facility] Comment on above: Performed By: #### U HCG, UAX, UMICAO #### [facility] [address] [place] 9703383 Can Closing Machine Tender: Tami Villanueva MD Chloride [Moles/Vol] 105 mmol/L Normal 98-107 [facility] Comment on above: Performed By: #### U HCG, UAX, UMICAO #### [facility] [address] [place], [place] 9072783 Can Closing Machine Tender: Tami Villanueva MD CO2 [Moles/Vol] 23 mmol/L Normal 20-31 [facility] Comment on above: Performed By: #### U HCG, UAX, UMICAO #### [facility] [address] [place], [place] 4092283 Can Closing Machine Tender: Tami Villanueva MD Creatinine [Mass/Vol] 0.60 mg/dL Normal 0.50-0.90 [facility] Comment on above: Performed By: #### U HCG, UAX, UMICAO #### [facility] [address] [place], [place] 4844583 Can Closing Machine Tender: Tami Villanueva MD GFR, Amer >60 Normal >60 [facility] Comment on above: Performed By: #### U HCG, UAX, UMICAO #### [facility] [address] [place], [place] 2800483 Can Closing Machine Tender: Tami Villanueva MD GFR,non Amer >60 Normal >60 [facility] Comment on above: Performed By: #### U HCG, UAX, UMICAO #### [facility] [address] [place], [place] 3054183 Can Closing Machine Tender: Tami Villanueva MD Glucose [Mass/Vol] 93 mg/dL Normal 70-99 [facility] Comment on above: Performed By: #### U HCG, UAX, UMICAO #### [facility] [address] [place] [address] Can Closing Machine Tender: Tami Villanueva MD Potassium [Moles/Vol] 3.9 mmol/L Normal 3.7-5.3 [facility] Comment on above: Performed By: #### U HCG, UAX, UMICAO #### [facility] [address] [place] [address] Can Closing Machine Tender: Tami Villanueva MD Protein [Mass/Vol] 6.3 g/dL Low 6.4-8.3 [facility] Comment on above: Performed By: #### U HCG, UAX, UMICAO #### [facility] [address] [place], [place] 3293383 Can Closing Machine Tender: Tami Villanueva MD Sodium [Moles/Vol] 138 mmol/L Normal 135-144 [facility] Comment on above: Performed By: #### U HCG, UAX, UMICAO #### [facility] [address] [place] [address] Can Closing Machine Tender: Tami Villanueva MD Staging: Normal [facility] Comment on above: Result Comment: Stag e 1: Some kidney damage normal GFR Stage 2: Mild kidney damage GFR 60-89 Stage 3: Moderate kidney damage GFR 30-59 Stage 4: Severe kidney damage GFR 15-29 Stage 5: Severe kidney damage GFR <15 ESRD - chronic treatment by dialysis or transplant Performed By: #### U HCG, UAX, UMICAO #### [facility] [address] [place], [facility]83 Can Closing Machine Tender: Tami Villanueva MD Urea nitrogen [Mass/Vol] 15 mg/dL Normal 6-20 [facility] Comment on above: Performed By: #### U HCG, UAX, UMICAO #### [facility] [address] [place] [address] Can Closing Machine Tender: Tami Villanueva MD Comprehensive Metabolic [facility] 08-16-2021 Albumin [Mass/Vol] 3.7 g/dL 3.5 - 5.2 g/dL [facility] Albumin/Globulin [Mass ratio] 1.4 {ratio} [facility] ALP (Bld) [Catalytic activity/Vol] 46 U/L 35 - 104 U/L [facility] ALT [Catalytic activity/Vol] 12 U/L 5 - 33 U/L [facility] Anion gap [Moles/Vol] 10 mmol/L 9 - 17 mmol/L [facility] AST [Catalytic activity/Vol] 13 U/L <32 [facility] Bilirubin [Mass/Vol] mg/dL Low 0.3 - 1 .2 mg/dL [facility] Calcium [Mass/Vol] 8.9 mg/dL 8.6 - 10. 4 mg/dL [facility] Chloride [Moles/Vol] 105 mmol/L 98 - 10 7 mmol/L [facility] CO2 [Moles/Vol] 23 mmol/L 20 - 31 mmol/L [facility] Creatinine [Mass/Vol] 0.6 mg/dL 0.50 - 0.90 mg/dL [facility] Free PSA/Total PSA [Mass fraction] 6.3 g/dL Low 6.4 - 8.3 g/dL [facility] GFR >60 >60 mL/min [facility] GFR Non- >60 >60 mL/min [facility] Glucose [Mass/Vol] 93 mg/dL 70 - 99 mg/dL [facility] Interpretation and review of laboratory results Abnormal [facility] Potassium [Moles/Vol] 3.9 mmol/L 3.7 - 5.3 mmol/L [facility] Sodium [Moles/Vol] 138 mmol/L 135 - 144 mmol/L [facility] Urea nitrogen (BldV) [Mass/Vol] 15 mg/dL 6 - 20 mg/dL [facility] Urea nitrogen/Creatinine (Bld) [Mass ratio] 25 High [facility] HIV Ag/Abon 08-16-2021 HIV Ag/Ab Non-Reactive Normal NR [facility] Comment on above: Result Comment: No l aboratory evidence of HIV infection. If acute HIV infection is suspected, consider testing for HIV-1 RNA. Performed By: #### U HCG, UAX, UMICAO #### [facility] [address] [place] [address] Can Closing Machine Tender: Tami Villanueva MD HIV Screenon 08-16-2021 HIV Ag/Ab Non-Reactive NONREACTIVE [facility] Comment on above: No laboratory eviden ce of HIV infection. If acute HIV infection is suspected, consider testing for HIV-1 RNA. [facility] Hepatitis Acute [facility] 08-16 Hep A Ab,IgM Non-Reactive Normal NR [facility] Comment on above: Performed By: #### U HCG, UAX, UMICAO #### [facility] [address] [place] [address] [place] [place], [place] 8696383 Can Closing Machine Tender: Tami Villanueva MD Hep B Core Ab,IgM Non-Reactive Normal [facility] Comment on above: Performed By: #### U HCG, UAX, UMICAO #### [facility] [address] [place] [address] Dr[address] [place], [place] [id number] Can Closing Machine Tender: Tami Villanueva MD Hep B Surf Ag Non-Reactive Normal [facility] Comment on above: Performed By: #### U HCG, UAX, UMICAO #### [facility] [facility] [address] [place] [address] Dr. [place], [place] [id number] Can Closing Machine Tender: Tami Villanueva MD Hep C Ab Non-Reactive Normal [facility] Comment on above: Result Comment: The [...] By: #### U HCG, UAX, UMICAO #### [facility] [address] [place] [address] [place] [address] Can Closing Machine Tender: Tami Villanueva MD Hepatitis Panel, [facility] HAV IgM IA Qn (S) Non-Reactive NONREACTIVE [facility] Hep B Core Ab, IgM Non-Reactive NONREACTIVE [facility] Hepatitis B Surface Ag Non-Reactive NONREACTIVE [facility] Hepatitis C Ab Non-Reactive NONREACTIVE [facility] Comment on above: The hepatitis C procedure [...] recommended by ordering HCV RNA by PCR. [facility] Laboratory - Chemistry and C hemistry - challengeon 08-16-2021 GFR/1.73 sq M.predicted MDRD (S/P/Bld) [Vol rate/Area] [facility] Comment on above: Average GFR for 30-3 9 years old: 107 mL/min/1.73sq m Chronic Kidney Disease: <60 mL/min/1.73sq m Kidney failure: <15 mL/min/1.73sq m eGFR calculated using average adult body mass. Additional eGFR calculator available at: http://www.Crossborders/multiple_crcl_2012.htm Stage 1: Some kidney damage normal GFR Stage 2: Mild kidney damage GFR 60-89 Stage 3: Moderate kidney damage GFR 30-59 Stage 4: Severe kidney damage GFR 15-29 Stage 5: Severe kidney damage GFR <15 ESRD - chronic treatment by dialysis or transplant Microscopic Urinalysison - [facility] Bacteria, UA 2+ Abnormal None [facility] Epithelial Cells UA 5 TO 10 [facility] Interpretation and review of laboratory results Abnormal [facility] RBC (U) [#/Vol] 100 /uL [facility] lt WBC, UA 5 TO 10 [facility] Urinalysison 08-16-2021 Bilirubin Urine INTERPRET WITH CAUTION DUE TO INTENSE COLOR OF URINE. Abnormal NEGATIVE [employer] Color, UA Red Abnormal Yellow [facility] Glucose, Ur INTERPRET WITH CAUTION DUE TO INTENSE COLOR OF URINE. Abnormal NEGATIVE [facility] Interpretation and review of laboratory results Abnormal [facility] Par[employer]X Ketones Ql (U) INTERPRET WITH CAUTION DUE TO INTENSE COLOR OF URINE. Abnormal NEGATIVE [facility] Leukocyte esterase Test strip Ql (U) INTERPRET WITH CAUTION DUE TO INTENSE COLOR OF URINE. Abnormal NEGATIVE [facility] N[facility], Urine INTERPRET WITH CAUTION DUE TO INTENSE COLOR OF URINE. Abnormal NEGATIVE GRID pH, UA INTERPRET WITH CAUTION DUE TO INTENSE COLOR OF URINE. GRID Protein, UA INTERPRET WITH CAUTION DUE TO INTENSE COLOR OF URINE. Abnormal NEGATIVE GRID Specific [place], UA 1.025 High [facility] Turbidity UA Turbid Abnormal Clear [facility] Urine Hgb INTERPRET WITH CAUTION DUE TO INTENSE COLOR OF URINE. Abnormal NEGATIVE [facility] Urobilinogen, Urine INTERPRET WITH CAUTION DUE TO INTENSE COLOR OF URINE. Abnormal Normal [facility] Urinalysis, Routineon 2021 Bilirubin, SemiQt,Ur INTERPRET WITH CAUTION DUE TO INTENSE COLOR OF URINE. Abnormal NEG [facility] Comment on above: Performed By: #### U HCG, UAX, UMICAO #### [facility] [address] [place], [place] [id number] Can Closing Machine Tender: Tami Villanueva MD Blood, Urine INTERPRET WITH CAUTION DUE TO INTENSE COLOR OF URINE. Abnormal NEG [facility] Comment on above: Performed By: #### U HCG, UAX, UMICAO #### [facility] [address] [place] [address] Dr. [place], [place] [id number] Can Closing Machine Tender: Tami Villanueva MD Clarity (U) Turbid Abnormal CLEAR [facility] Comment on above: Performed By: #### U HCG, UAX, UMICAO #### [facility] [address] [place] [address] Dr. [place], [place] [id number] Can Closing Machine Tender: Tami Villaneuva MD Color (U) Red Abnormal YEL [facility] Comment on above: Performed By: #### U HCG, UAX, UMICAO #### [facility] [address] [place] [address] Dr. [place], [place] [phone] Can Closing Machine Tender: Tami Villanueva MD Glucose Ql (U) INTERPRET WITH CAUTION DUE TO INTENSE COLOR OF URINE. Abnormal NEG [facility] Comment on above: Performed By: #### U HCG, UAX, UMICAO #### [facility] [address] [place] [address] [place] [address] Can Closing Machine Tender: Tami Villanueva MD Ketones Ql (U) INTERPRET WITH CAUTION DUE TO INTENSE COLOR OF URINE. Abnormal NEG [facility] Comment on above: Performed By: #### U HCG, UAX, UMICAO #### [facility] [address] [place] [address] Dr. [place], [place] [phone] Can Closing Machine Tender: Tami Villanueva MD Leukocyte esterase Test strip Ql (U) INTERPRET WITH CAUTION DUE TO INTENSE COLOR OF URINE. Abnormal NEG [facility] Comment on above: Performed By: #### U HCG, UAX, UMICAO #### [address] [place], [place] [id number] Can Closing Machine Tender: Tami Villanueva MD Nitrite,Ur INTERPRET WITH CAUTION DUE TO INTENSE COLOR OF URINE. Abnormal NEG [facility] Comment on above: Performed By: #### U HCG, UAX, UMICAO #### [address] [place], [place] [id number] Can Closing Machine Tender: Tami Villanueva MD PH,Ur INTERPRET WITH CAUTION DUE TO INTENSE COLOR OF URINE. Normal 5.0-9.0 [facility] Comment on above: Performed By: #### U HCG, UAX, UMICAO #### [address] [place], [place] [phone] Can Closing Machine Tender: Tami Villanueva MD Protein Ql (U) INTERPRET WITH CAUTION DUE TO INTENSE COLOR OF URINE. Abnormal NEG [facility] Comment on above: Performed By: #### U HCG, UAX, UMICAO #### [address] [place] [address] Can Closing Machine Tender: Tami Villanueva MD Spec. [place],Ur 1.025 High 1.010-1.020 [facility] Comment on above: Performed By: #### U HCG, UAX, UMICAO #### [address] [place] [address] Can Closing Machine Tender: Tami Villanueva MD Urobilinogen,Ur INTERPRET WITH CAUTION DUE TO INTENSE COLOR OF URINE. Abnormal NORM [facility] Comment on above: Performed By: #### U HCG, UAX, UMICAO #### [address] [place] [address] Can Closing Machine Tender: Tami Villanueva MD Urinalysis,Microon 2 ----- Normal [facility] Comment on above: Performed By: #### U HCG, UAX, UMICAO #### [facility] [address] [place], [place] [id number] Can Closing Machine Tender: Tami Villanueva MD Bacteria 2+ Abnormal NONE [facility] Comment on above: Performed By: #### U HCG, UAX, UMICAO #### [facility] [address] [place], [place] [phone] Can Closing Machine Tender: Tami Villanueva MD Epithelial cells LM Ql (Urine sed) 5 TO 10 Normal 0-25 [facility] Comment on above: Performed By: #### U HCG, UAX, UMICAO #### [facility] [address] [place] [address] Dr. [place], [place] [phone] Can Closing Machine Tender: Tami Villanueva MD Urine RBC's GREATER THAN 100 Normal 0-2 [facility] Comment on above: Performed By: #### U HCG, UAX, UMICAO #### [facility] [address] [place] [address] [place] [address] Can Closing Machine Tender: Tami Villanueva MD Urine WBC's 5 TO 10 Normal 0-5 [facility] Comment on above: Performed By: #### U HCG, UAX, UMICAO #### [facility] [address] [place] [address] Can Closing Machine Tender: Tami Villanueva MD Basic Metabolic Profon 08-10 (cont.) Normal [facility] Comment on above: Result Comment: Aver age GFR for 30-39 years old: 107 mL/min/1.73sq m Chronic Kidney Disease: <60 mL/min/1.73sq m Kidney failure: <15 mL/min/1.73sq m eGFR calculated using average adult body mass. Additional eGFR calculator available at: http://www.globalrph.Animated Speech/multiple_crcl_2012.htm Performed By: #### B MP #### [facility] [place] [address] Can Closing Machine Tender: Bib Morin DO Anion gap [Moles/Vol] 11 mmol/L Normal 9-17 [facility] Comment on above: Performed By: #### B MP #### [facility] [place] [address] Can Closing Machine Tender: Bib Morin DO Calcium [Mass/Vol] 9.3 mg/dL Normal 8.6-10.4 [facility] Comment on above: Performed By: #### B MP #### [facility] [address] [place], [place] [address]an[address] [place] [address] Can Closing Machine Tender: Bib Morin DO Chloride [Moles/Vol] 103 mmol/L Normal 98-107 [facility] Comment on above: Performed By: #### B MP #### [facility] [place] [address] Can Closing Machine Tender: Bib Morin DO CO2 [Moles/Vol] 23 mmol/L Normal 20-31 [facility] Comment on above: Performed By: #### B MP #### [facility] [address] [place] [address]. [place] [address] Can Closing Machine Tender: Bib Morin DO Creatinine [Mass/Vol] 0.64 mg/dL Normal 0.50-0.90 [facility] Comment on above: Performed By: #### B MP #### [facility] [address] [place], [place] [address]e [facility] [place] [address] Can Closing Machine Tender: Bib Morin DO GFR, Amer >60 Normal >60 [facility] [facility] Comment on above: Performed By: #### B MP #### [facility] [address] [place], [place] [address] [place] [address] Can Closing Machine Tender: Bib Morin DO GFR,non Amer >60 Normal >60 [facility] Comment on above: Performed By: #### B MP #### [facility] [address] [place] [address] Can Closing Machine Tender: Bib Morin DO Glucose [Mass/Vol] 140 mg/dL High 70-99 [facility] Comment on above: Performed By: #### B MP #### [facility] [place] [address] Can Closing Machine Tender: Bib Morin DO Potassium [Moles/Vol] 4.3 mmol/L Normal 3.7-5.3 [facility] Comment on above: Performed By: #### B MP #### [facility] [place] [address] Can Closing Machine Tender: Bib Morin DO Sodium [Moles/Vol] 137 mmol/L Normal 135-144 [facility] Comment on above: Performed By: #### B MP #### [facility] [place] [address] Can Closing Machine Tender: Bib Morin DO Urea nitrogen [Mass/Vol] 10 mg/dL Normal 6-20 [facility] Comment on above: Performed By: #### B MP #### [facility] [place] [address] Can Closing Machine Tender: Bib Morin DO Comp Metabolic Profon 2021 (cont.) Normal [facility] Comment on above: Result Comment: Aver age GFR for 30-39 years old: 107 mL/min/1.73sq m Chronic Kidney Disease: <60 mL/min/1.73sq m Kidney failure: <15 mL/min/1.73sq m eGFR calculated using average adult body mass. Additional eGFR calculator available at: http://www.Kimbia.com/multiple_crcl_2012.htm Performed By: #### C P #### [facility] [address] [place] [address] Can Closing Machine Tender: Bib Morin DO Albumin [Mass/Vol] 4.1 g/dL Normal 3.5-5.2 [facility] Comment on above: Performed By: #### C P #### [facility] [address] [place] [address] Can Closing Machine Tender: Bib Morin DO Alkaline Phos 47 U/L Normal 35-104 [facility] Comment on above: Performed By: #### C P #### [facility] [place] [address] Can Closing Machine Tender: Bib Morin DO ALT [Catalytic activity/Vol] 14 U/L Normal 5-33 [facility] Comment on above: Performed By: #### C P #### [facility] [place] [address] Can Closing Machine Tender: Bib Morin DO Anion gap [Moles/Vol] 9 mmol/L Normal 9-17 [facility] Comment on above: Performed By: #### C P #### [facility] [place] [address] Can Closing Machine Tender: iBb Morin DO AST [Catalytic activity/Vol] 25 U/L Normal <32 [facility] Comment on above: Performed By: #### C P #### [facility] [place] [address] Can Closing Machine Tender: Bib Morin DO Bilirubin [Mass/Vol] 0.26 mg/dL Low 0.3-1.2 [facility] Comment on above: Performed By: #### C P #### [facility] [address] [place] [address] Can Closing Machine Tender: Bib Morin DO Calcium [Mass/Vol] 9.4 mg/dL Normal 8.6-10.4 [facility] Comment on above: Performed By: #### C P #### [facility] [address] [place] [address] Can Closing Machine Tender: Bib Morin DO Chloride [Moles/Vol] 104 mmol/L Normal 98-107 [facility] Comment on above: Performed By: #### C P #### [facility] [address] [place] [address] Can Closing Machine Tender: Bib Morin DO CO2 [Moles/Vol] 23 mmol/L Normal 20-31 [facility] Comment on above: Performed By: #### C P #### [facility] [address] [place] [address] Can Closing Machine Tender: Bib Morin DO Creatinine [Mass/Vol] 0.67 mg/dL Normal 0.50-0.90 [facility] Comment on above: Performed By: #### C P #### [facility] [address] [place] [address] Can Closing Machine Tender: Bib Morin DO GFR, Amer >60 Normal >60 [facility] [facility] Comment on above: Performed By: #### C P #### [facility] [address] [place] [address] Can Closing Machine Tender: Bib Morin DO GFR,non Amer >60 Normal >60 [facility] Comment on above: Performed By: #### C P #### [facility] [address] [place] [address] Can Closing Machine Tender: Fanelly, Bib, DO Glucose [Mass/Vol] 91 mg/dL Normal 70-99 [facility] Comment on above: Performed By: #### C P #### [facility] [address] [place] [address] Can Closing Machine Tender: Bib Morin DO Potassium [Moles/Vol] 4.3 mmol/L Normal 3.7-5.3 [facility] Comment on above: Performed By: #### C P #### [facility] [address] [place] [address] Can Closing Machine Tender: Bib Morin DO Protein [Mass/Vol] 6.5 g/dL Normal 6.4-8.3 [facility] Comment on above: Performed By: #### C P #### [facility] [place] [address] Can Closing Machine Tender: Bib Morin DO Sodium [Moles/Vol] 136 mmol/L Normal 135-144 [facility] Comment on above: Performed By: #### C P #### [facility] [place] [address] Can Closing Machine Tender: Bib Morin DO Urea nitrogen [Mass/Vol] 10 mg/dL Normal 6-20 [facility] Comment on above: Performed By: #### C P #### [facility] [place] [address] Can Closing Machine Tender: Bib Morin DO Lithiumon 08-08-2021 [place] [Moles/Vol] mmol/L Low 0.6-1.2 [facility] Comment on above: Performed By: #### L IC #### [address] [place] [address] Can Closing Machine Tender: Cj Cruz MD Acetaminophenon 08-07-2021 Acetaminophen [Mass/Vol] ug/mL Low 10-30 [facility] Comment on above: Performed By: #### A CET #### [facility] [address] [place] [address] Can Closing Machine Tender: Tami Villanueva MD Acetaminophen Levelon 2021 Acetaminophen Level <5 Low 10 - 30 ug/mL [facility] Interpretation and review of laboratory results Abnormal [facility] Basic Metab w/rfx MGon 08-07 Potassium [Moles/Vol] 2.9 mmol/L Critically low 3.7-5.3 [facility] Comment on above: Performed By: #### C DP, BMPX, MG #### [facility] [address] [place] [address] Can Closing Machine Tender: Tami Villanueva MD (cont.) [facility] Comment on above: Result Comment: Aver age GFR for 30-39 years old: 107 mL/min/1.73sq m Chronic Kidney Disease: <60 mL/min/1.73sq m Kidney failure: <15 mL/min/1.73sq m eGFR calculated using average adult body mass. Additional eGFR calculator available at: http://www.Kimbia.Animated Speech/multiple_crcl_2012.htm Performed By: #### C DP, BMPX, MG #### [address] [place] [address] Can Closing Machine Tender: Tami Villanueva MD Anion gap [Moles/Vol] 9 mmol/L Normal 9-17 [facility] Comment on above: Performed By: #### C DP, BMPX, MG #### [facility] [address] [place] [address] Can Closing Machine Tender: Tami Villanueva MD BUN/CRE Ratio 17 Normal 9-20 [facility] Comment on above: Performed By: #### C DP, BMPX, MG #### [facility] [address] [place] [address] Can Closing Machine Tender: Tami Villanueva MD Calcium [Mass/Vol] 9.5 mg/dL Normal 8.6-10.4 [facility] Comment on above: Performed By: #### C DP, BMPX, MG #### [facility] [address] [place] [address] Can Closing Machine Tender: Tami Villanueva MD Chloride [Moles/Vol] 102 mmol/L Normal 98-107 [facility] Comment on above: Performed By: #### C DP, BMPX, MG #### [facility] [address] [place] [address] Can Closing Machine Tender: Tami Villanueva MD CO2 [Moles/Vol] 28 mmol/L Normal 20-31 [facility] Comment on above: Performed By: #### C DP, BMPX, MG #### [address] [place] [address] Can Closing Machine Tender: Tami Villanueva MD Creatinine [Mass/Vol] 0.70 mg/dL Normal 0.50-0.90 [facility] Comment on above: Performed By: #### C DP, BMPX, MG #### [facility] [address] [place] [address] Can Closing Machine Tender: Tami Villanueva MD GFR, Amer >60 Normal >60 [facility] Comment on above: Performed By: #### C DP, BMPX, MG #### [facility] [address] [place] [address] Can Closing Machine Tender: Tami Villanueva MD GFR,non Amer >60 Normal >60 [facility] Comment on above: Performed By: #### C DP, BMPX, MG #### [facility] [address] [place] [address] Can Closing Machine Tender: Tami Villanueva MD Glucose [Mass/Vol] 56 mg/dL Low 70-99 [facility] Comment on above: Performed By: #### C DP, BMPX, MG #### [facility] [address] [place] [address] Dr. [place], [place] [id number] Can Closing Machine Tender: Tami Villanueva MD Sodium [Moles/Vol] 139 mmol/L Normal 135-144 [facility] Comment on above: Performed By: #### C DP, BMPX, MG #### [facility] [address] [place], [place] [id number] Can Closing Machine Tender: Tami Villanueva MD Staging: Normal [facility] Comment on above: Result Comment: Stag e 1: Some kidney damage normal GFR Stage 2: Mild kidney damage GFR 60-89 Stage 3: Moderate kidney damage GFR 30-59 Stage 4: Severe kidney damage GFR 15-29 Stage 5: Severe kidney damage GFR <15 ESRD - chronic treatment by dialysis or transplant Performed By: #### C DP, BMPX, MG #### [address] [place] [address] Can Closing Machine Tender: Tami Villanueva MD Urea nitrogen [Mass/Vol] 12 mg/dL Normal 6-20 [facility] Comment on above: Performed By: #### C DP, BMPX, MG #### [facility] [address] [place] [address] [place] [address] Can Closing Machine Tender: Tami Villanueva MD Basic Metabolic Panel w/ Ref ludy to MGon 08-07-2021 Anion gap [Moles/Vol] 9 mmol/L 9 - 17 mmol/L [facility] Calcium [Mass/Vol] 9.5 mg/dL 8.6 - 10. 4 mg/dL [facility] Chloride [Moles/Vol] 102 mmol/L 98 - 10 7 mmol/L [facility] CO2 [Moles/Vol] 28 mmol/L 20 - 31 mmol/L [facility] Creatinine [Mass/Vol] 0.7 mg/dL 0.50 - 0.90 mg/dL [facility] GFR >60 >60 mL/min [facility] GFR Non- >60 >60 mL/min [facility] Glucose [Mass/Vol] 56 mg/dL Low 70 - 99 mg/dL [facility] Interpretation and review of laboratory results Abnormal [facility] Potassium [Moles/Vol] 2.9 mmol/L Critically low 3.7 - 5.3 mmol/L [facility] Sodium [Moles/Vol] 139 mmol/L 135 - 144 mmol/L [facility] Urea nitrogen (BldV) [Mass/Vol] 12 mg/dL 6 - 20 mg/dL [facility] Urea nitrogen/Creatinine (Bld) [Mass ratio] 17 [facility] CBC with Auto Differentialon 08-07-2021 Absolute Eos # 0.11 [facility] Absolute Immature Granulocyte <0.03 [facility] Absolute Lymph # 1.45 [facility] Absolute Stearns # 0.43 [facility] lt Basophils (Bld) [#/Vol] 0.06 10*3/uL [facility] Basophils/100 WBC (Bld) 1 % 0 - 2 % [facility] Eosinophils/100 WBC (Bld) 2 % 1 - 4 % [facility] Hematocrit (Bld) [Volume fraction] 39.9 % 36.3 - 47.1 % [facility] Hemoglobin.gastrointes tinal spec 1 Ql (Stl) 12.7 g/dL 11.9 - 15.1 g/dL [facility] Immature granulocytes/100 WBC (Bld) 0 % 0 [facility] Interpretation and review of laboratory results Abnormal [facility] Lymphocytes/100 WBC (Bld) 31 % 24 - 43 % [facility] MCH (RBC) [Entitic mass] 28.0 pg 25.2 - 33.5 pg [facility] MCHC (RBC) [Mass/Vol] 31.8 g/dL 28.4 - 34.8 g/dL [facility] MCV (RBC) [Entitic vol] 88.1 fL 82.6 - 102.9 fL [facility] Monocytes/100 WBC (Bld) 9 % 3 - 12 % [facility] NRBC Automated 0.0 0.0 per 100 WBC [facility] Platelet distribution width (Bld) [Ratio] 17.2 % High 11.8 - 14.4 % [facility] Platelet mean volume (Bld) [Entitic vol] 10.3 fL 8.1 - 13.5 fL [facility] Platelets (Bld) [#/Vol] 269 10*3/uL [facility] RBC (Bld) [#/Vol] 4.53 10*6/uL 3.95 - 5.1 1 m/uL [facility] Segmented neutrophils/100 WBC (Bld) 57 % 36 - 65 % [facility] Segs Absolute 2.62 [facility] h WBC (Bld) [#/Vol] 4.7 10*3/uL [facility] CBC with Diffon 08-07-2021 Abs. Basophil 0.06 k/uL Normal 0.00-0.20 [facility] [facility] Comment on above: Performed By: #### C DP, BMPX, MG #### [facility] [address] [place] [address] [place] [address] Can Closing Machine Tender: Tami Villanueva MD Abs.Imm.Granulocyte <0.03 Normal 0.00-0.30 [facility] Comment on above: Performed By: #### C DP, BMPX, MG #### [address] [place] [id number] Can Closing Machine Tender: Tami Villanueva MD Abs.Neutrophil (Seg) 2.62 k/uL Normal 1.50-8.10 [facility] Comment on above: Performed By: #### C DP, BMPX, MG #### [address] [place] [address] Can Closing Machine Tender: Tami Villanueva MD Basophils/100 WBC (Bld) 1 % Normal 0-2 [facility] Comment on above: Performed By: #### C DP, BMPX, MG #### [address] [place], [place] [address] Can Closing Machine Tender: Tami Villanueva MD Eosinophils (Bld) [#/Vol] 0.11 10*3/uL Normal 0.00-0.44 [facility] Comment on above: Performed By: #### C DP, BMPX, MG #### [address] [place] [address] Can Closing Machine Tender: Tami Villanueva MD Eosinophils/100 WBC (Bld) 2 % Normal 1-4 [facility] Comment on above: Performed By: #### C DP, BMPX, MG #### [facility] [address] [place], [place] [id number] Can Closing Machine Tender: Tami Villanueva MD Erythrocyte distribution width (RBC) [Ratio] 17.2 % High 11.8-14.4 [facility] Comment on above: Performed By: #### C DP, BMPX, MG #### [facility] [address] [place], [place] [address] Can Closing Machine Tender: Tami Villanueva MD Hematocrit (Bld) [Volume fraction] 39.9 % Normal 36.3-47.1 [facility] Comment on above: Performed By: #### C DP, BMPX, MG #### [address] [place] [id number] Can Closing Machine Tender: Tami Villanueva MD Hemoglobin (Bld) [Mass/Vol] 12.7 g/dL Normal 11.9-15.1 [facility] Comment on above: Performed By: #### C DP, BMPX, MG #### [address] [place], [facility]83 Can Closing Machine Tender: Tami Villanueva MD Immature granulocytes/100 WBC (Bld) 0 % Normal 0 [facility] Comment on above: Performed By: #### C DP, BMPX, MG #### [address] [place], [place] [address] Can Closing Machine Tender: Tami Villanueva MD Lymphocytes (Bld) [#/Vol] 1.45 10*3/uL Normal 1.10-3.70 [facility] Comment on above: Performed By: #### C DP, BMPX, MG #### [facility] [address] [place] [address] Can Closing Machine Tender: Tami Villanueva MD Lymphocytes/100 WBC (Bld) 31 % Normal 24-43 [facility] Comment on above: Performed By: #### C DP, BMPX, MG #### [address] [place], [facility]83 Can Closing Machine Tender: Tami Villanueva MD MCH (RBC) [Entitic mass] 28.0 pg Normal 25.2-33.5 [facility] Comment on above: Performed By: #### C DP, BMPX, MG #### [address] [place], [facility]83 Can Closing Machine Tender: Tami Villanueva MD MCHC (RBC) [Mass/Vol] 31.8 g/dL Normal 28.4-34.8 [facility] Comment on above: Performed By: #### C DP, BMPX, MG #### [address] [place] [address] Can Closing Machine Tender: Tami Villanueva MD MCV (RBC) [Entitic vol] 88.1 fL Normal 82.6-102.9 [facility] Comment on above: Performed By: #### C DP, BMPX, MG #### [address] [place]endez, [facility]83 Can Closing Machine Tender: Tami Villanueva MD Monocytes (Bld) [#/Vol] 0.43 10*3/uL Normal 0.10-1.20 [facility] Comment on above: Performed By: #### C DP, BMPX, MG #### [address] [place]endez, [facility]83 Can Closing Machine Tender: Tami Villanueva MD Monocytes/100 WBC (Bld) 9 % Normal 3-12 [facility] Comment on above: Performed By: #### C DP, BMPX, MG #### [address] [place] [address] Can Closing Machine Tender: Tami Villanueva MD Neutrophil (Seg) 57 % Normal 36-65 [facility] Comment on above: Performed By: #### C DP, BMPX, MG #### [address] [place], [facility]83 Can Closing Machine Tender: Tami Villanueva MD NRBC Automated 0.0 per 100 WBC Normal 0.0 [facility] Comment on above: Performed By: #### C DP, BMPX, MG #### [address] [place], [facility]83 Can Closing Machine Tender: Tami Villanueva MD Platelet mean volume (Bld) [Entitic vol] 10.3 fL Normal 8.1-13.5 [facility] Comment on above: Performed By: #### C DP, BMPX, MG #### [address] [place], [place] [address] Can Closing Machine Tender: Tami Villanueva MD Platelets (Bld) [#/Vol] 269 10*3/uL Normal 138-453 [facility] Comment on above: Performed By: #### C DP, BMPX, MG #### [address] [place]endez, [facility]83 Can Closing Machine Tender: Tami Villanueva MD RBC (Bld) [#/Vol] 4.53 10*6/uL Normal 3.95-5.11 [facility] Comment on above: Performed By: #### C DP, BMPX, MG #### [address] [place]endez, [facility]83 Can Closing Machine Tender: Tami Villanueva MD WBC (Bld) [#/Vol] 4.7 10*3/uL Normal 3.5-11.3 [facility] Comment on above: Performed By: #### C DP, BMPX, MG #### [address] [place] [phone] Can Closing Machine Tender: Tami Villanueva MD COVID-19, Rapidon 08-07-2021 SARS-CoV-2 (COVID-19) RNA AMARA+probe Ql (Unsp spec) Not detected Not Detected [facility] Comment on above: Rapid NAAT: [...] management decisions. Fact sheet for Healthcare Providers: https://www.fda.gov/media/282810/download Fact sheet for Patients: https://www.fda.gov/media/097149/download Methodology: Isothermal Nucleic Acid Amplification Specimen Description .NASOPHARYNGEAL SWAB [facility] HCG, ,Urineon 08-07 Beta HCG ( test) Ql (U) Negative Normal NEG [facility] Comment on above: Result Comment: Spec imens with hCG levels near the threshold of the test (25 mIU/mL) may give a negative or indeterminate result. In such cases, another test should be performed with a new specimen in 48-72 hours. If early is suspected clinically in this setting, correlation with quantitative serum b-hCG level is suggested. [facility] has confirmed the use of plasma for this test. This has not been cleared or approved by the U.S. Food and Drug Administration. The FDA has determined that such clearance is not necessary. Performed By: #### U HCG, UAX, UMICAO #### [facility] [address] [place] [address] Can Closing Machine Tender: Tami Villanueva MD Laboratory - Chemistry and C hemistry - challengeon 08-07-2021 GFR/1.73 sq M.predicted MDRD (S/P/Bld) [Vol rate/Area] [facility] Comment on above: Average GFR for 30-3 9 years old: 107 mL/min/1.73sq m Chronic Kidney Disease: <60 mL/min/1.73sq m Kidney failure: <15 mL/min/1.73sq m eGFR calculated using average adult body mass. Additional eGFR calculator available at: http://www.Kimb[employer].Animated Speech/multiple_crcl_2012.htm Stage 1: Some kidney damage normal GFR Stage 2: Mild kidney damage GFR 60-89 Stage 3: Moderate kidney damage GFR 30-59 Stage 4: Severe kidney damage GFR 15-29 Stage 5: Severe kidney damage GFR <15 ESRD - chronic treatment by dialysis or transplant Magnesiumon 08-07-2021 Magnesium [Mass/Vol] 2.1 mg/dL Normal 1.6-2.6 [facility] Comment on above: Performed By: #### U HCG, UAX, UMICAO #### [facility] [address] [place] [address] Can Closing Machine Tender: Tami Villanueva MD Magnesium [Mass/Vol] 2.1 mg/dL 1.6 - 2 .6 mg/dL [facility] Microscopic Urinalysison - [facility] Bacteria, UA 1+ Abnormal None [facility] Epithelial Cells UA 0 TO 2 [facility] Interpretation and review of laboratory results Abnormal [facility] RBC, UA 0 TO 2 [facility] WBC, UA 2 TO 5 [facility] , Urineon 2 Beta HCG ( test) Ql (U) Negative NEGATIVE [facility] Comment on above: Specimens with hCG l evels near the threshold of the test (25 mIU/mL) may give a negative or indeterminate result. In such cases, another test should be performed with a new specimen in 48-72 hours. If early is suspected clinically in this setting, correlation with quantitative serum b-hCG level is suggested. [facility] the use of plasma for this test. This has not been cleared or approved by the U.S. Food and Drug Administration. The FDA has determined that such clearance is not necessary. [facility] [id number] 08-07-2021 SARS-CoV-2 (COVID-19) RNA AMARA+probe Ql (Unsp spec) Not detected Normal NOTDET [facility] Comment on above: Result Comment: Rapid NAAT: [...] management decisions. Fact sheet for Healthcare Providers: https://www.fda.gov/media/912440/download Fact sheet for Patients: https://www.fda.gov/media/741153/download Methodology: Isothermal Nucleic Acid Amplification Performed By: #### C OVRB #### [facility] [address] [place] [address] Can Closing Machine Tender: Tami Villanueva MD Salicylateon 08-07-2021 Salicylate <1 Low 3-10 [facility] Comment on above: Performed By: #### U HCG, UAX, UMICAO #### [facility] [address] [place] [address] Can Closing Machine Tender: Tami Villanueva MD Interpretation and review of laboratory results Abnormal [facility] Salicylate Lvl <1 Low 3 - 10 mg/dL [facility] TSH w/reflex to FT4on 2021 TSH Qn 0.99 m[IU]/L Normal 0.30-5.00 [facility] Comment on above: Performed By: #### T SHX #### [facility] [address] [place] [address] Can Closing Machine Tender: Tami Villanueva MD TSH with Reflexon 08-07-2021 TSH Qn 0.99 m[IU]/L [facility] UA w/Reflex Cultureon 2021 Bilirubin, SemiQt,Ur Negative Normal NEG [facility] Comment on above: Performed By: #### U HCG, UAX, UMICAO #### [facility] [address] [place], [place] [id number] Can Closing Machine Tender: Tami Villanueva MD Blood, Urine Negative Normal NEG [facility] Comment on above: Performed By: #### U HCG, UAX, UMICAO #### [facility] [address] [place], [place] [id number] Can Closing Machine Tender: Tami Villanueva MD Clarity (U) Clear Normal CLEAR [facility] Comment on above: Performed By: #### U HCG, UAX, UMICAO #### [facility] [address] [place], [place] [address]83 Can Closing Machine Tender: Tami Villanueva MD Color (U) Yellow Normal YEL [facility] Comment on above: Performed By: #### U HCG, UAX, UMICAO #### [facility] [address] [place], [place] 0228483 Can Closing Machine Tender: Tami Villanueva MD Glucose Ql (U) Negative Normal NEG [facility] Comment on above: Performed By: #### U HCG, UAX, UMICAO #### [facility] [address] [place] [address] Dr. [place], [place] [id number] Can Closing Machine Tender: Tami Villanueva MD Ketones Ql (U) Negative Normal NEG [facility] Comment on above: Performed By: #### U HCG, UAX, UMICAO #### [facility] [address] [place], [place] [id number] Can Closing Machine Tender: Tami Villanueva MD Leukocyte esterase Test strip Ql (U) SMALL Abnormal NEG [facility] Comment on above: Performed By: #### U HCG, UAX, UMICAO #### [facility] [address] [place], [place] 137[address]383 Can Closing Machine Tender: Tami Villanueva MD Nitrite,Ur Negative Normal NEG [facility] Comment on above: Performed By: #### U HCG, UAX, UMICAO #### [facility] [address] [place] [address] Dr. [place], [place] [phone] Can Closing Machine Tender: Tami Villanueva MD PH,Ur 6.0 Normal 5.0-9.0 [facility] Comment on above: Performed By: #### U HCG, UAX, UMICAO #### [facility] [address] [place] [address] [place] [address] Can Closing Machine Tender: Tami Villanueva MD Protein Ql (U) Negative Normal NEG [facility] Comment on above: Performed By: #### U HCG, UAX, UMICAO #### [address] [place] [phone] Can Closing Machine Tender: Tami Villanueva MD Spec. [place],Ur <1.005 Low 1.010-1.020 [facility] Comment on above: Performed By: #### U HCG, UAX, UMICAO #### [address] [place] [phone] Can Closing Machine Tender: Tami Villanueva MD Urobilinogen,Ur Normal Normal NORM [facility] Comment on above: Performed By: #### U HCG, UAX, UMICAO #### [address] [place] [phone] Can Closing Machine Tender: Tami Villanueva MD Urinalysis with Reflex to Cu ltureon 08-07-2021 Bilirubin Urine Negative NEGATIVE [facility] Color, UA Yellow Yellow [facility] Glucose, Ur Negative NEGATIVE [facility] Interpretation and review of laboratory results Abnormal [facility] Ketones Ql (U) Negative NEGATIVE [facility] Leukocyte esterase Test strip Ql (U) SMALL Abnormal NEGATIVE [facility] Nitrite, Urine Negative NEGATIVE [facility] pH, UA 6.0 [facility] Protein, UA Negative NEGATIVE [facility] Specific [place], UA <1.005 Low [facility] Turbidity UA Clear Clear [facility] Urine Hgb Negative NEGATIVE [facility] Urobilinogen, Urine Normal Normal [facility] Urinalysis,Microon 2 ----- Normal [facility] Comment on above: Performed By: #### U HCG, UAX, UMICAO #### [facility] [address] [place] [address] Can Closing Machine Tender: Tami Villanueva MD Bacteria 1+ Abnormal NONE [facility] Comment on above: Performed By: #### U HCG, UAX, UMICAO #### [facility] [address] [place] [address] Can Closing Machine Tender: Tami Villanueva MD Epithelial cells LM Ql (Urine sed) 0 TO 2 Normal 0-25 [facility] Comment on above: Performed By: #### U HCG, UAX, UMICAO #### [facility] [address] [place] [address] Can Closing Machine Tender: Tami Villanueva MD Urine RBC's 0 TO 2 Normal 0-2 [facility] Comment on above: Performed By: #### U HCG, UAX, UMICAO #### [facility] [address] [place] [address] Can Closing Machine Tender: Tami Villanueva MD Urine WBC's 2 TO 5 Normal 0-5 [facility] Comment on above: Performed By: #### U HCG, UAX, UMICAO #### [facility] [address] [place] [address] Can Closing Machine Tender: Tami Villanueva MD Coronavirus 2019on 1 SARS-CoV-2 (COVID-19) RNA AMARA+probe Ql (Unsp spec) Normal Negative for COVID19 (SARS CoV2) by RT-PCR or equival [facility] Comment on above: Result Comment: Nega tive for This test was developed and its performance characteristics determined by [facility] [place]. This test has been authorized by FDA under an Emergency Use Authorization (EUA). This test has been validated in accordance with the FDA's Guidance Document Policy for Diagnostics Testing in Laboratories Certified to Perform High Complexity Testing under CLIA prior to Emergency use Authorization for Coronavirus Disease 2019 during the Public Health Emergency issued on July 27, 2019. Test performed by [facility], [facility], [address] [place] [address], [place] [address]. COVID19 (SARS This test was developed and its performance characteristics determined by [facility]. This test has been authorized by FDA under an Emergency Use Authorization (EUA). This test has been validated in accordance with the FDA's Guidance Document Policy for Diagnostics Testing in Laboratories Certified to Perform High Complexity Testing under CLIA prior to Emergency use Authorization for Coronavirus Disease 2019 during the Public Health Emergency issued on July 27, 2019. Test performed by [facility], [facility], [address] [id number]. CoV2) by RT-PCR This test was developed and its performance characteristics determined by [facility]. This test has been authorized by FDA under an Emergency Use Authorization (EUA). This test has been validated in accordance with the FDA's Guidance Document Policy for Diagnostics Testing in Laboratories Certified to Perform High Complexity Testing under CLIA prior to Emergency use Authorization for Coronavirus Disease 2019 during the Public Health Emergency issued on July 27, 2019. Test performed by [facility], [facility], [address], [place] [address]. or equivalent This test was developed and its performance characteristics determined by [facility]. This test has been authorized by FDA under an Emergency Use Authorization (EUA). This test has been validated in accordance with the FDA's Guidance Document Policy for Diagnostics Testing in Laboratories Certified to Perform High Complexity Testing under CLIA prior to Emergency use Authorization for Coronavirus Disease 2019 during the Public Health Emergency issued on July 27, 2019. Test performed by [facility], [facility], [address], [place] [address]. ethod. This test was developed and its performance characteristics determined by [facility] [place]. This test has been authorized by FDA under an Emergency Use Authorization (EUA). This test has been validated in accordance with the FDA's Guidance Document Policy for Diagnostics Testing in Laboratories Certified to Perform High Complexity Testing under CLIA prior to Emergency use Authorization for Coronavirus Disease 2019 during the Public Health Emergency issued on July 27, 2019. Test performed by [facility], [facility] [place], [address] [place], [place] [address]. 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 Pathology Reports Accession: Collected Date/Time: Received Date/Time: Pathologist: [id number] 07/15/2019 14:18 EST 07/16/2019 13:34 MD FREDERICK NG Final Surgical Pathology Report DIAGNOSIS: A) CERVIX, BIOPSY: CONDYLOMA AND MILD SQUAMOUS DYSPLASIA. IMMUNOPEROXIDASE STAIN FOR P16 IS NEGATIVE. B) ENDOCERVIX, CURETTAGE: MUCUS AND FRAGMENTS OF ENDOCERVICAL TISSUE WITH NO SPECIFIC PATHOLOGIC CHANGES. COMMENT: [facility] - D# [id number] CLINICAL INFORMATION: ABNORMAL PAP SMEAR OF CERVIX [...] Electronically Signed by Pathology Report verified by [facility] Electronically signed by FREDERICK ONTIVEROS MD Sign out Date: 07/19/2019 07:46 Performing Lab: [facility], [address] [place] [id number] [place] [address] ([place]) Comment on above: Performed By: #### C BC, ADIFF, ANEU, APTT #### [place] [address] HPVon 06-05-2019 HPV Interp See Interp HPVN [facility] ([place]) Comment on above: Order Comment: Order placed by [id number] rule from [id number] Result Comment: High Risk HPV Typing Positive: [...] and sufficient DNA to be detected. See Inter HPOE Performed By: #### C BC, ADIFF, ANEU, APTT #### [place] [address] HPV Source Cervix Normal [facility] ([place]) Comment on above: Order Comment: Order placed by [id number] rule from [id number] Performed By: #### C BC, ADIFF, ANEU, APTT #### [place] [id number] Physician Office Assistant Cytology Reporton 2019 Physician Office Assistant Cytology Report . Pathology Reports Accession: Collected Date/Time: Received Date/Time: Pathologist: [id number] 05/28/2019 11:14 EST 05/30/2019 18:00 MD FREDERICK NG Physician Office Assistant Cytology Report SPECIMEN: Specimen Description: Liquid Prep Reflex ASCUS Specimen: Cervical Screening or Diagnostic: Screening RELEVANT HISTORY: LMP: Post [id number] SPECIMEN ADEQUACY: SATISFACTORY FOR EVALUATION ENDOCERVICAL/TRANSFOR MATIONAL ZONE COMPONENT PRESENT INTERPRETATION/RESULT S: ATYPICAL SQUAMOUS CELLS OF UNDETERMINED SIGNIFICANCE ADJUNCTIVE TESTING: HIGH RISK HPV DNA TESTING ORDERED, REPORT TO FOLLOW UNDER SEPARATE COVER COMMENT: This Pap Test was successfully processed and evaluated with the assistance of the [employer] ThinPrep Test Imaging System. Electronically Signed by Pathology report verified by [facility] Screened by: SAMMIE RM Electronically signed by FREDERICK ONTIVEROS MD Sign-Out Date: 06/03/2019 15:15 Performing Lab: [facility], [address] [place] [id number] [place] Disclaimer The Pap test is a screening test for cervical cancer. As evidenced by published data, it is subject to both inherent false negative and false positive results. Your patient's results should be interpreted in context with pertinent clinical history including gynecological examination. Normal [facility] ([place]) Comment on above: Performed By: #### C BC, ADIFF, ANEU, APTT #### [place] [address] .Auto Diffon 05-03-2019 Ammonia (P) [Mass/Vol] 0.30 10 3/mcL Normal 0.09-1.40 [facility] ([place]) Comment on above: Performed By: #### C BC, ADIFF, ANEU, APTT #### [address] [address] Basophils (Bld) [#/Vol] 0.00 10 3/mcL Normal 0.00-0.27 [facility] ([place]) Comment on above: Performed By: #### C BC, ADIFF, ANEU, APTT #### [address] [address] Basophils/100 WBC (Bld) 0.9 % Normal 0.0-2.5 [facility] ([place]) Comment on above: Performed By: #### C BC, ADIFF, ANEU, APTT #### [address] [address] Eosinophils (Bld) [#/Vol] 0.20 10 3/mcL Normal 0.00-0.65 [facility] ([place]) Comment on above: Performed By: #### C BC, ADIFF, ANEU, APTT #### [address] [address] Eosinophils/100 WBC (Bld) 3.0 % Normal 0.0-6.0 [facility] ([place]) Comment on above: Performed By: #### C BC, ADIFF, ANEU, APTT #### [address] [address] Lymphocytes (Bld) [#/Vol] 2.40 10 3/mcL Normal 0.90-4.32 [facility] ([place]) Comment on above: Performed By: #### C BC, ADIFF, ANEU, APTT #### [address] [address] Lymphocytes/100 WBC (Bld) 47.6 % High 20.0-40.0 [facility] ([place]) Comment on above: Performed By: #### C BC, ADIFF, ANEU, APTT #### [address] [address] Monocytes/100 WBC (Bld) 5.1 % Normal 2.0-13.0 [facility] ([place]) Comment on above: Performed By: #### C BC, ADIFF, ANEU, APTT #### [address] [address] Neutrophils/100 WBC (Bld) 43.4 % Low 50.0-75.0 [facility] ([place]) Comment on above: Performed By: #### C BC, ADIFF, ANEU, APTT #### [address] [address] .NEUABSon 05-03-2019 Neutrophils (Bld) [#/Vol] 2.20 10 3/mcL Low 2.25-8.10 [facility] ([place]) Comment on above: Performed By: #### C BC, ADIFF, ANEU, APTT #### [address] [address] APTTon 05-03-2019 aPTT Coag (Bld) [Time] 77.1 s High 25.0-35.0 [facility] ([place]) Comment on above: Result Comment: For Heparin anticoagulation therapy, the recommended therapeutic range is: 54-77 seconds (APTT Correlation with Anti-Xa therapeutic range of 0.3-0.7 units/ml). PLEASE REFERENCE THE PHARMACY PROTOCOL FOR DOSING. Performed By: #### C BC, ADJUANI ANEU, APTT #### [address] [address] aPTT Coag (Bld) [Time] Heparin IV Normal [facility] ([place]) Comment on above: Performed By: #### C BC, ADIFF, ANEU, APTT #### [address] [address] aPTT Coag (Bld) [Time] 74.5 s High 25.0-35.0 [facility] ([place]) Comment on above: Result Comment: For Heparin anticoagulation therapy, the recommended therapeutic range is: 54-77 seconds (APTT Correlation with Anti-Xa therapeutic range of 0.3-0.7 units/ml). PLEASE REFERENCE THE PHARMACY PROTOCOL FOR DOSING. Performed By: #### C BC, ADJUANI ANEU, APTT #### [address] [address] aPTT Coag (Bld) [Time] Heparin IV Normal [facility] ([place]) Comment on above: Performed By: #### C BC, ADJUANI ANEU, APTT #### [address] [address] CBCon 05-03-2019 Erythrocyte distribution width (RBC) [Ratio] 23.6 % High 11.5-15.5 [facility] ([place]) Comment on above: Performed By: #### C BC, ADIFF, ANEU, APTT #### [address] [address] Hematocrit (Bld) [Volume fraction] 32.9 % Low 34.0-46.0 [facility] ([place]) Comment on above: Performed By: #### C BC, ADIFF, ANEU, APTT #### [address] [address] Hemoglobin (Bld) [Mass/Vol] 10.6 G/dL Low 12.0-16.0 [facility] ([place]) Comment on above: Performed By: #### C BC, ADIFF, ANEU, APTT #### [address] [address] MCH (RBC) [Entitic mass] 26.0 pg Low 27.0-33.0 [facility] ([place]) Comment on above: Performed By: #### C BC, ADIFF, ANEU, APTT #### [address] [address] MCHC (RBC) [Mass/Vol] 32.2 G/dL Normal 32.0-36.0 [facility] ([place]) Comment on above: Performed By: #### C BC, ADIFF, ANEU, APTT #### [place] [id number] MCV (RBC) [Entitic vol] 80.5 fL Normal 80.0-99.0 [facility] ([place]) Comment on above: Performed By: #### C BC, ADIFF, ANEU, APTT #### [address] [address] Platelet mean volume (Bld) [Entitic vol] 8.2 fL Normal 6.6-10.5 [facility] ([place]) Comment on above: Performed By: #### C BC, ADIFF, ANEU, APTT #### [address] [address] Platelets (Bld) [#/Vol] 247 10 3/mcL Normal 150-450 [facility] ([place]) Comment on above: Performed By: #### C BC, ADIFF, ANEU, APTT #### [place] [id number] RBC (Bld) [#/Vol] 4.08 10 6/mcL Low 4.10-5.30 [facility] ([place]) Comment on above: Performed By: #### C BC, ADIFF, ANEU, APTT #### [address] [address] WBC (Bld) [#/Vol] 5.00 10 3/mcL Normal 4.50-10.80 [facility] ([place]) Comment on above: Performed By: #### C BC, ADIFF, ANEU, APTT #### [address] [address] .Auto Diffon 05-02-2019 Ammonia (P) [Mass/Vol] 0.30 10 3/mcL Normal 0.09-1.40 [facility] ([place]) Comment on above: Performed By: #### C BC, ADIFF, ANEU, APTT #### [address] [address] Basophils (Bld) [#/Vol] 0.10 10 3/mcL Normal 0.00-0.27 [facility] ([place]) Comment on above: Performed By: #### C BC, ADIFF, ANEU, APTT #### [address] [address] Basophils/100 WBC (Bld) 2.4 % Normal 0.0-2.5 [facility] ([place]) Comment on above: Performed By: #### C BC, ADIFF, ANEU, APTT #### [address] [address] Eosinophils (Bld) [#/Vol] 0.10 10 3/mcL Normal 0.00-0.65 [facility] ([place]) Comment on above: Performed By: #### C BC, ADIFF, ANEU, APTT #### [address] [address] Eosinophils/100 WBC (Bld) 3.1 % Normal 0.0-6.0 [facility] ([place]) Comment on above: Performed By: #### C BC, ADIFF, ANEU, APTT #### [address] [address] Lymphocytes (Bld) [#/Vol] 1.80 10 3/mcL Normal 0.90-4.32 [facility] ([place]) Comment on above: Performed By: #### C BC, ADIFF, ANEU, APTT #### [address] [address] Lymphocytes/100 WBC (Bld) 40.1 % High 20.0-40.0 [facility] ([place]) Comment on above: Performed By: #### C BC, ADIFF, ANEU, APTT #### [address] [address] Monocytes/100 WBC (Bld) 6.1 % Normal 2.0-13.0 [facility] ([place]) Comment on above: Performed By: #### C MECHELLE VIRGEN ANEU, APTT #### [address] [address] Neutrophils/100 WBC (Bld) 48.3 % Low 50.0-75.0 [facility] ([place]) Comment on above: Performed By: #### MECHELLE SEVERINO ANEU, APTT #### [address] [address] Ammonia (P) [Mass/Vol] 0.40 10 3/mcL Normal 0.09-1.40 [facility] ([place]) Comment on above: Performed By: #### MECHELLE SEVERINO, ANEU #### [address] [address] Basophils (Bld) [#/Vol] 0.10 10 3/mcL Normal 0.00-0.27 [facility] ([place]) Comment on above: Performed By: #### MECHELLE SEVERINO, ANEU #### [address] [address] Basophils/100 WBC (Bld) 1.5 % Normal 0.0-2.5 [facility] ([place]) Comment on above: Performed By: #### MECHELLE SEVERINO, ANEU #### [address] [address] Eosinophils (Bld) [#/Vol] 0.10 10 3/mcL Normal 0.00-0.65 [facility] ([place]) Comment on above: Performed By: #### MECHELLE SEVERINO, ANEU #### [address] [address] Eosinophils/100 WBC (Bld) 2.6 % Normal 0.0-6.0 [facility] ([place]) Comment on above: Performed By: #### MECHELLE SEVERINO, ANEU #### [address] [address] Lymphocytes (Bld) [#/Vol] 2.30 10 3/mcL Normal 0.90-4.32 [facility] ([place]) Comment on above: Performed By: #### C BC, ADIFF, ANEU #### [address] [address] Lymphocytes/100 WBC (Bld) 41.5 % High 20.0-40.0 [facility] ([place]) Comment on above: Performed By: #### C BC, ADIFF, ANEU #### [address] [address] Monocytes/100 WBC (Bld) 6.5 % Normal 2.0-13.0 [facility] ([place]) Comment on above: Performed By: #### C BC, ADIFF, ANEU #### [address] [address] Neutrophils/100 WBC (Bld) 47.9 % Low 50.0-75.0 [facility] ([place]) Comment on above: Performed By: #### C BC, ADIFF, ANEU #### [address] [address] Ammonia (P) [Mass/Vol] 0.40 10 3/mcL Normal 0.09-1.40 [facility] ([place]) Comment on above: Performed By: #### C BC, ADIFF, ANEU, APTT #### [address] [address] Basophils (Bld) [#/Vol] 0.00 10 3/mcL Normal 0.00-0.27 [facility] ([place]) Comment on above: Performed By: #### C BC, ADIFF, ANEU, APTT #### [address] [address] Basophils/100 WBC (Bld) 0.8 % Normal 0.0-2.5 [facility] ([place]) Comment on above: Performed By: #### C BC, ADIFF, ANEU, APTT #### [address] [address] Eosinophils (Bld) [#/Vol] 0.10 10 3/mcL Normal 0.00-0.65 [facility] ([place]) Comment on above: Performed By: #### C BC, ADIFF, ANEU, APTT #### [address] [address] Eosinophils/100 WBC (Bld) 2.0 % Normal 0.0-6.0 [facility] ([place]) Comment on above: Performed By: #### C BC, ADIFF, ANEU, APTT #### [address] [address] Lymphocytes (Bld) [#/Vol] 2.30 10 3/mcL Normal 0.90-4.32 [facility] ([place]) Comment on above: Performed By: #### C BC, ADIFF, ANEU, APTT #### [address] [address] Lymphocytes/100 WBC (Bld) 37.6 % Normal 20.0-40.0 [facility] ([place]) Comment on above: Performed By: #### C BC, ADIFF, ANEU, APTT #### [address] [address] Monocytes/100 WBC (Bld) 6.0 % Normal 2.0-13.0 [facility] ([place]) Comment on above: Performed By: #### C BC, ADIFF, ANEU, APTT #### [address] [address] Neutrophils/100 WBC (Bld) 53.6 % Normal 50.0-75.0 [facility] ([place]) Comment on above: Performed By: #### C BC, ADIFF, ANEU, APTT #### [address] [address] .GFRon 05-02-2019 GFR >60 Normal [facility] ([place]) Comment on above: Result Comment: GFR [...] mL/min/1.73 square meters Performed By: #### C MECHELLE VIRGEN ANEU, APTT #### [address] [address] GFR Non- >60 Normal [facility] ([place]) Comment on above: Result Comment: GFR Population [...] mL/min/1.73 square meters Performed By: #### C MECHELLE VIRGEN ANEU, APTT #### [address] [address] .NEUABSon 05-02-2019 Neutrophils (Bld) [#/Vol] 2.10 10 3/mcL Low 2.25-8.10 [facility] ([place]) Comment on above: Performed By: #### C MECHELLE VIRGEN ANEU, APTT #### [address] [address] Neutrophils (Bld) [#/Vol] 2.70 10 3/mcL Normal 2.25-8.10 [facility] ([place]) Comment on above: Performed By: #### C MECHELLE VIRGEN ANEU #### [address] [address] Neutrophils (Bld) [#/Vol] 3.30 10 3/mcL Normal 2.25-8.10 [facility] ([place]) Comment on above: Performed By: #### C MECHELLE VIRGEN ANEU, APTT #### [address] [address] APTTon 05-02-2019 aPTT Coag (Bld) [Time] 75.6 s High 25.0-35.0 [facility] ([place]) Comment on above: Result Comment: For Heparin anticoagulation therapy, the recommended therapeutic range is: 54-77 seconds (APTT Correlation with Anti-Xa therapeutic range of 0.3-0.7 units/ml). PLEASE REFERENCE THE PHARMACY PROTOCOL FOR DOSING. Performed By: #### C BC, MECHELLE ANEU, APTT #### [address] [address] aPTT Coag (Bld) [Time] Heparin IV Normal [facility] ([place]) Comment on above: Performed By: #### C BCMECHELLE ANEU, APTT #### [address] [address] aPTT Coag (Bld) [Time] Unknown Normal [facility] ([place]) Comment on above: Performed By: #### C BCMECHELLE ANEU, APTT #### [address] [address] aPTT Coag (Bld) [Time] 150.2 s Criticall y abnormal 25.0-35.0 [facility] ([place]) Comment on above: Result Comment: For Heparin anticoagulation therapy, the recommended therapeutic range is: 54-77 seconds (APTT Correlation with Anti-Xa therapeutic range of 0.3-0.7 units/ml). PLEASE REFERENCE THE PHARMACY PROTOCOL FOR DOSING. Performed By: #### C BCMECHELLE ANEU, APTT #### [address] [address] BMPon 05-02-2019 Calcium [Mass/Vol] 9.0 mg/dL Normal 8.4-10.1 [facility] ([place]) Comment on above: Performed By: #### B MP, MG, GFR, CBC, ADIFF, ANEU #### [address] [address] Chloride [Moles/Vol] 110 mmol/L Normal 98-110 [facility] ([place]) Comment on above: Performed By: #### B MP, MG, GFR, CBC, ADIFF, ANEU #### [address] [address] CO2 [Moles/Vol] 26 mmol/L Normal 22-32 [facility] ([place]) Comment on above: Performed By: #### B MP, MG, GFR, CBC, ADIFF, ANEU #### [address] [address] Creatinine [Mass/Vol] 0.76 mg/dL Normal 0.50-1.20 [facility] ([place]) Comment on above: Performed By: #### B MP, MG, GFR, CBC, ADIFF, ANEU #### [address] [address] Electrolyte Balance 6.0 mEq/L Normal 4.0-15.0 [facility] ([place]) Comment on above: Performed By: #### B MP, MG, GFR, CBC, ADIFF, ANEU #### [address] [address] Glucose [Mass/Vol] 81 mg/dL Normal 70-110 [facility] ([place]) Comment on above: Performed By: #### B MP, MG, GFR, CBC, ADIFF, ANEU #### [address] [address] Potassium [Moles/Vol] 3.6 mmol/L Normal 3.5-5.0 [facility] ([place]) Comment on above: Performed By: #### B MP, MG, GFR, CBC, ADIFF, ANEU #### [address] [address] Sodium [Moles/Vol] 142 mmol/L Normal 136-145 [facility] ([place]) Comment on above: Performed By: #### B MP, MG, GFR, CBC, ADIFF, ANEU #### [address] [address] Urea nitrogen [Mass/Vol] 12.0 mg/dL Normal 8.0-22.0 [facility] ([place]) Comment on above: Performed By: #### B MP, MG, GFR, CBC, ADIFF, ANEU #### [place] [address] Urea nitrogen/Creatinine [Mass ratio] 15.8 ratio Normal 10.0-22.0 [facility] ([place]) Comment on above: Performed By: #### B MP, MG, GFR, CBC, ADIFF, ANEU #### [address] [address] CBCon 05-02-2019 Erythrocyte distribution width (RBC) [Ratio] 23.4 % High 11.5-15.5 [facility] ([place]) Comment on above: Performed By: #### C BC, ADIFF, ANEU, APTT #### [place] [address] Hematocrit (Bld) [Volume fraction] 33.1 % Low 34.0-46.0 [facility] ([place]) Comment on above: Performed By: #### C BC, ADIFF, ANEU, APTT #### [place] [id number] Hemoglobin (Bld) [Mass/Vol] 10.5 G/dL Low 12.0-16.0 [facility] ([place]) Comment on above: Performed By: #### C BC, ADIFF, ANEU, APTT #### [place] [id number] MCH (RBC) [Entitic mass] 25.5 pg Low 27.0-33.0 [facility] ([place]) Comment on above: Performed By: #### C BC, ADIFF, ANEU, APTT #### [place] [id number] MCHC (RBC) [Mass/Vol] 31.7 G/dL Low 32.0-36.0 [facility] ([place]) Comment on above: Performed By: #### C BC, ADIFF, ANEU, APTT #### [place] [id number] MCV (RBC) [Entitic vol] 80.4 fL Normal 80.0-99.0 [facility] ([place]) Comment on above: Performed By: #### C BC, ADIFF, ANEU, APTT #### [address] [address] Platelet mean volume (Bld) [Entitic vol] 8.3 fL Normal 6.6-10.5 [facility] ([place]) Comment on above: Performed By: #### C BC, ADIFF, ANEU, APTT #### [address] [address] Platelets (Bld) [#/Vol] 276 10 3/mcL Normal 150-450 [facility] ([place]) Comment on above: Performed By: #### C BC, ADIFF, ANEU, APTT #### [address] [address] RBC (Bld) [#/Vol] 4.12 10 6/mcL Normal 4.10-5.30 [facility] ([place]) Comment on above: Performed By: #### C BC, ADIFF, ANEU, APTT #### [place] [phone] WBC (Bld) [#/Vol] 4.40 10 3/mcL Low 4.50-10.80 [facility] ([place]) Comment on above: Performed By: #### C BC, ADIFF, ANEU, APTT #### [place] [id number] Erythrocyte distribution width (RBC) [Ratio] 23.9 % High 11.5-15.5 [facility] ([place]) Comment on above: Performed By: #### C BC, ADIFF, ANEU #### [place] [phone] Hematocrit (Bld) [Volume fraction] 34.4 % Normal 34.0-46.0 [facility] ([place]) Comment on above: Performed By: #### C BC, ADIFF, ANEU #### [place] [id number] Hemoglobin (Bld) [Mass/Vol] 10.9 G/dL Low 12.0-16.0 [facility] ([place]) Comment on above: Performed By: #### C BC, ADIFF, ANEU #### [address] [address] MCH (RBC) [Entitic mass] 25.2 pg Low 27.0-33.0 [facility] ([place]) Comment on above: Performed By: #### MECHELLE SEVERINO ANEU #### [address] [address] MCHC (RBC) [Mass/Vol] 31.6 G/dL Low 32.0-36.0 [facility] ([place]) Comment on above: Performed By: #### MECHELLE SEVERINO, ANEU #### [address] [address] MCV (RBC) [Entitic vol] 79.9 fL Low 80.0-99.0 [facility] ([place]) Comment on above: Performed By: #### MECHELLE SEVERINO, CRISS #### [address] [address] Platelet mean volume (Bld) [Entitic vol] 8.7 fL Normal 6.6-10.5 [facility] ([place]) Comment on above: Performed By: #### MECHELLE SEVERINO, ANEU #### [address] [address] Platelets (Bld) [#/Vol] 293 10 3/mcL Normal 150-450 [facility] ([place]) Comment on above: Performed By: #### MECHELLE SEVERINO, ANEU #### [address] [address] RBC (Bld) [#/Vol] 4.31 10 6/mcL Normal 4.10-5.30 [facility] ([place]) Comment on above: Performed By: #### MECHELLE SEVERINO, ANEU #### [address] [address] WBC (Bld) [#/Vol] 5.60 10 3/mcL Normal 4.50-10.80 [facility] ([place]) Comment on above: Performed By: #### MECHELLE SEVERINO, ANEU #### [address] [address] Erythrocyte distribution width (RBC) [Ratio] 23.5 % High 11.5-15.5 [facility] ([place]) Comment on above: Performed By: #### C MECHELLE VIRGEN ANEU, APTT #### [address] [address] Hematocrit (Bld) [Volume fraction] 36.0 % Normal 34.0-46.0 [facility] ([place]) Comment on above: Performed By: #### C MECHELLE VIRGEN ANEU, APTT #### [address] [address] Hemoglobin (Bld) [Mass/Vol] 11.1 G/dL Low 12.0-16.0 [facility] ([place]) Comment on above: Performed By: #### C MECHELLE VIRGEN ANEU, APTT #### [address] [address] MCH (RBC) [Entitic mass] 24.9 pg Low 27.0-33.0 [facility] ([place]) Comment on above: Performed By: #### C MECHELLE VIRGEN ANEU, APTT #### [address] [address] MCHC (RBC) [Mass/Vol] 30.8 G/dL Low 32.0-36.0 [facility] ([place]) Comment on above: Performed By: #### C MECHELLE VIRGEN ANEU, APTT #### [address] [address] MCV (RBC) [Entitic vol] 80.9 fL Normal 80.0-99.0 [facility] ([place]) Comment on above: Performed By: #### C MECHELLE VIRGEN ANEU, APTT #### [address] [address] Platelet mean volume (Bld) [Entitic vol] 8.5 fL Normal 6.6-10.5 [facility] ([place]) Comment on above: Performed By: #### C PROMISE, MECHELLE, ANEU, APTT #### [address] [address] Platelets (Bld) [#/Vol] 307 10 3/mcL Normal 150-450 [facility] ([place]) Comment on above: Performed By: #### C MECHELLE VIRGEN, ANEU, APTT #### [address] [address] RBC (Bld) [#/Vol] 4.45 10 6/mcL Normal 4.10-5.30 [facility] ([place]) Comment on above: Performed By: #### C BC, ADIFF, ANEU, APTT #### [place] [id number] [address] [place] [address] WBC (Bld) [#/Vol] 6.10 10 3/mcL Normal 4.50-10.80 [facility] ([place]) Comment on above: Performed By: #### C BC, ADIFF, ANEU, APTT #### [place] [address] IR IVC FILTER PLACEMENT W/ IDEon 05-02-2019 IR IVC FILTER PLACEMENT W/GUIDE ORIGINAL Images acquired, not reported on this accession number. Normal [facility] ([place]) MGon 05-02-2019 Magnesium [Mass/Vol] 2.2 mg/dL Normal 1.6-2.4 [facility] ([place]) Comment on above: Performed By: #### C BC, ADIFF, ANEU, APTT #### [place] [address] TROPIon 05-02-2019 Troponin I.cardiac [Mass/Vol] ng/mL Normal 0.000-0.040 [facility] ([place]) Comment on above: Result Comment: Trop onin I reference ranges (02/03/14): 0.00-0.040 ng/mL Negative and non-diagnostic. >0.040 ng/mL Consistent with cardiac damage, increased clinical risk and possibility of myocardial infarction. Serial measurements, a rise & fall in test results, clinical history, appropriate symptoms and/or ECG changes may help assess possibility of NC. *Other non-acute coronary syndrome conditions such as CHF, myocarditis, pulmonary emboli, sepsis and cardiac surgery could result in myocardial damage and increased troponin levels. Performed By: #### T SH, TROPI #### [place] [address] TSHon 05-02-2019 TSH Qn 5.500 mcIU/mL High 0.360-3.740 [facility] ([place]) Comment on above: Performed By: #### T SH, LORII #### [facility] [address] [place] [id number] (serum)on 12-09-19 18 Test (serum) Negative Normal Negative [facility] Comment on above: Performed By: #### U MIC1 ####[address] [address] Acetm Level W/ doseon 2016 Acetaminophen mass conc 0.0 ug/mL Low 10.0-30.0 [facility] Comment on above: Performed By: #### A CETM ####[address] [address] Last dose at [employer] Normal [facility] Comment on above: Performed By: #### A CETM ####[place] [address] Performed By: #### S ALIC ####[address] [address] CBC w/Auto Differentialon Anemia [employer] Normal [facility] Comment on above: Performed By: #### C BC ####[address] [address] Anisocytosis presence [employer] Normal [facility] Comment on above: Performed By: #### C BC ####[address] [address] Basophils Abs. # 0.0 K/uL Normal 0.0-0.1 [facility] Comment on above: Performed By: #### C BC ####[place] [address] Basophils/100 WBC Auto (Bld) 1.1 % High 0.2-1.0 [facility] Comment on above: Performed By: #### C BC ####[address] [address] Basophils/100 WBC Auto (Bld) [employer] Normal [facility] Comment on above: Performed By: #### C BC ####[address] [address] Bosophillia # [employer]ER Normal [facility] Comment on above: Performed By: #### C BC ####[address] [address] Eosinophils [employer] Normal [facility] Comment on above: Performed By: #### C BC ####[place] [address] Eosinophils 0.0 10*3/uL Normal 0.0-0.2 [facility] Comment on above: Performed By: #### C BC ####[address] [address] Eosinophils/100 leukocytes [employer] Normal [facility] Comment on above: Performed By: #### C BC ####[address] [address] Eosinophils/100 leukocytes 0.6 % Low 0.9-2.9 [facility] Comment on above: Performed By: #### C BC ####[place] [id number] Erythocytosis [employer] Normal [facility] Comment on above: Performed By: #### C BC ####[address] [address] Erythrocyte distribution width Auto Ratio (RBC) 13.9 % Normal 11.5-14.5 [facility] Comment on above: Performed By: #### C BC ####[address] [address] Erythrocytes (RBC) 4.35 10*6/uL Normal 3.83-5.19 [facility] Comment on above: Performed By: #### C BC ####[address] [address] Hematocrit (HCT) 41.7 % Normal 33.4-46.0 [facility] Comment on above: Performed By: #### C BC ####[address] [address] Hemoglobin mass conc (Bld) 14.1 g/dL High 11.1-13.7 [facility] Comment on above: Performed By: #### C BC ####[address] [address] Hypochromia [employer] Normal [facility] Comment on above: Performed By: #### C BC ####[address] [address] Large Platelets [employer] Normal [facility] Comment on above: Performed By: #### C BC ####[address] [address] Leukocytosis [employer]ER Normal [facility] Comment on above: Performed By: #### C BC ####[address] [address] Leukopenia [employer] Normal [facility] Comment on above: Performed By: #### C BC ####[address] [address] Lymphocytes [employer] Normal [facility] Comment on above: Performed By: #### C BC ####[address] [address] Lymphocytes 1.1 10*3/uL Low 1.3-2.9 [facility] Comment on above: Performed By: #### C BC ####[address] [address] Lymphocytes/100 leukocytes 24.2 % Normal 17.0-45.5 [facility] Comment on above: Performed By: #### C BC ####[address] [address] Lymphocytes/100 leukocytes [employer] Normal [facility] Comment on above: Performed By: #### C BC ####[address] [address] Macrocytosis [employer]ER Normal [facility] Comment on above: Performed By: #### C BC ####[address] [address] MCH 32.3 pg High 27.0-31.0 [facility] Comment on above: Performed By: #### C BC ####[address] [address] MCHC mass conc (RBC) 33.8 g/dL Normal 33.0-37.0 [facility] Comment on above: Performed By: #### C BC ####[address] [address] MCV 95.7 fL Normal 81.0-99.0 [facility] Comment on above: Performed By: #### C BC ####[address] [address] Microcytosis [employer]ER Normal [facility] Comment on above: Performed By: #### C BC ####[address] [address] Monocytes 0.3 10*3/uL Normal 0.3-0.8 [facility] Comment on above: Performed By: #### C BC ####[address] [address] Monocytes/100 leukocytes 6.1 % Normal 5.5-11.7 [facility] Comment on above: Performed By: #### C BC ####[address] [address] Monocytosis % [employer] Normal [facility] Comment on above: Performed By: #### C BC ####[address] [address] Neutropenia # [employer] Normal [facility] Comment on above: Performed By: #### C BC ####[address] [address] Neutropenia % [employer]ER Normal [facility] Comment on above: Performed By: #### C BC ####[address] [address] Neutrophilia % [employer]ER Normal [facility] Comment on above: Performed By: #### C BC ####[address] [address] Neutrophils [employer]ER Normal [facility] Comment on above: Performed By: #### C BC ####[address] [address] Neutrophils Abs. # 3.0 K/uL Normal 2.2-4.8 [facility] Comment on above: Performed By: #### C BC ####[address] [address] Neutrophils/100 WBC Auto (Bld) 68.0 % High 43.0-65.0 [facility] Comment on above: Performed By: #### C BC ####[address] [address] NRBC % 0.0 % Normal [facility] Comment on above: Performed By: #### C BC ####[address] [address] NRBC Abs. # 0.0 K/uL Normal [facility] Comment on above: Performed By: #### C BC ####[address] [address] Pancytopenia COMPUTER ASSEMBLER Normal [facility] Comment on above: Performed By: #### C BC ####[address] [address] Platelet mean volume (PMV) 8.6 fL Normal 7.4-10.4 [facility] Comment on above: Performed By: #### C BC ####[address] [address] Platelets 235 10*3/uL Normal 148-402 [facility] Comment on above: Performed By: #### C BC ####[address] [address] Poikilocytosis COMPUTER ASSEMBLER Normal [facility] Comment on above: Performed By: #### C BC ####[address] [address] Small Platelets COMPUTER ASSEMBLER Normal [facility] Comment on above: Performed By: #### C BC ####[address] [address] Thrombocytopenia COMPUTER ASSEMBLER Normal [facility] Comment on above: Performed By: #### C BC ####[address] [address] Thrombocytopenia. COMPUTER ASSEMBLER Normal [facility] Comment on above: Performed By: #### C BC ####[address] [address] Thrombocytosis COMPUTER ASSEMBLER Normal [facility] Comment on above: Performed By: #### C BC ####[address] [address] WBC (Leukocytes) 4.4 10*3/uL Normal 3.6-10.8 [facility] Comment on above: Performed By: #### C BC ####[address] [address] Comprehensive Metabolic Pane carlos 03-31-2017 Alanine aminotransferase (ALT) 26 U/L Normal 13-66 [facility] Comment on above: Performed By: #### C MP ####[address] [address] Albumin 4.5 g/dL Normal 3.4-5.0 [facility] Comment on above: Performed By: #### C MP ####[address] [address] Albumin/Globulin Ratio 1.4 {ratio} Normal 1.1-2.5 [facility] Comment on above: Performed By: #### C MP ####[address] [address] Alkaline phosphatase (ALP) 50 U/L Low 54-112 [facility] Comment on above: Performed By: #### C MP ####[address] [address] Anion gap 14.3 mmol/L Normal 8.0-16.0 [facility] Comment on above: Result Comment: CO RRECTED REPORT: Previous result was 15.1 at 12:14 on 03/31/17 Performed By: #### C MP ####[address] [address] Aspartate aminotransferase (AST) 15 U/L Normal 3-39 [facility] Comment on above: Performed By: #### C MP ####[address] [address] Bilirubin Ql (U) 0.48 mg/dL Normal 0.00-0.99 [facility] Comment on above: Performed By: #### C MP ####[address] [address] BUN/Creatinine Ratio 9 mg/mg Normal 6-20 [facility] Comment on above: Performed By: #### C MP ####[address] [address] Calcium 9.1 mg/dL Normal 8.2-10.0 [facility] Comment on above: Performed By: #### C MP ####[address] [address] Chloride 106 mmol/L Normal 94-110 [facility] Comment on above: Performed By: #### C MP ####[address] [address] CO2 27 mmol/L Normal 21-34 [facility] Comment on above: Performed By: #### C MP ####[address] [address] Creatinine 0.70 mg/dL Normal 0.51-0.95 [facility] Comment on above: Performed By: #### C MP ####[address] [address] eGFR (black) mL/min/{1.73_m2} Normal >60 [facility] Comment on above: Result Comment: Control Clerk Head kelly Kidney Disease less than 60 mL/min/1.73 [id number] Failure less than 15 mL/min/1.73 [id number] estimated GFR by age:20-29 years 116 mL/min/1.73 m2 Performed By: #### C MP ####[address] [address] eGFR (non-black) mL/min/{1.73_m2} Normal >60 [facility] Comment on above: Performed By: #### C MP ####[address] [address] Globulin 3.2 g/dL Normal 1.5-4.5 [facility] Comment on above: Performed By: #### C MP ####[address] [place], [place] [address] Glucose mass conc 94 mg/dL Normal 65-100 [facility] Comment on above: Performed By: #### C MP ####[facility] [place] [address] Potassium molar conc 3.3 mmol/L Normal 3.3-5.1 [facility] Comment on above: Performed By: #### C MP ####[address] [address] Protein 7.7 g/dL Normal 6.1-8.2 [facility] Comment on above: Performed By: #### C MP ####[address] [address] Sodium 144 mmol/L Normal 132-145 [facility] Comment on above: Performed By: #### C MP ####[facility] [place] [address] Urea nitrogen 6.2 mg/dL Normal 3.2-26.9 [facility] Comment on above: Performed By: #### C MP ####[address] [address] EMERGENCY DEPARTMENTon 03-31 EMERGENCY DEPARTMENT [address] [address] HEALTH INFORMATION MANAGEMENT EMERGENCY DEPARTMENT : [phone] Signed Patient: PRANEETH PORRAS Acct:[id number] MRUN: [id number] : 1990 Sex: F Loc: ED ADM [...] Cardiology: Absent: chest pain, edema - GI Gastrointestinal/Abdo sheldon: Absent: abdominal pain, diarrhea, nausea, vomiting - Genitourinary Symptoms: Absent: dysuria - Neuro Neurological: Absent: headache, weakness - Muskuloskeletal Musculoskeletal: Absent: back pain, joint pain, joint swelling - Integumentary Skin: Absent: lesions, rash - Hematologic Hematologic/Lymphatic : Absent: easy bleeding, easy bruising, swollen glands [...] Moderate Remains Under Direct Supervision by:: Nurses Desk Code parrish called: No Early Morning office called R/T patient behavior: No Bledsoe slip/Writ of fdc: No - Behavior Assessment Patient Appearance: Disheveled [...] ideation - Skin Skin Color: Present: Normal, Bledsoe Skin exam: Present: warm, dry - Vital [...] suicidal ideation and possible admission. Mental Health [facility] - Lab Data Result diagrams: 03/31/17 [...] (43.0-65.0) % Lymph % 24.2 (17.0-45.5) % Stearns % 6.1 (5.5-11.7) % Eos % 0.6 [...] 9 (6-20) Glucose 94 (65-100) mg/dL Specific [place] 1.020 (1.015-1.025) Calcium 9.1 (8.2-10.0) mg/dL Total [...] % (43.0-65.0) % Lymph % (17.0-45.5) % Stearns % (5.5-11.7) % Eos % (0.9-2.9) % [...] BUN/Creatinine Ratio (6-20) Glucose (65-100) mg/dL Specific [place] (1.015-1.025) Calcium (8.2-10.0) mg/dL Total Bilirubin (0.00-0.99) [...] were both negative. The patient evaluated by all [facility] and plan is to admit [...] Reviewed and Agreed With?: Yes - Dictation Amendments/Documentat ion: [employer] Document Only Electronically Generated By: DANIAL ENRIQUEZ DO Generated Date/Time: 03/31/17 1314 Electronically Signed By: DANIAL ENRIQUEZ DO Signed Date/Time 03/31/17 1648 Co Signed Electronically By: Co Signed Date/Time: CC: TAMI HALL ; PHYSICIAN, UNASSIGNED Normal [facility] Ethanol (Medical)on 03-31-20 17 Ethanol mg/dL Normal 0.0-0.0 [facility] Comment on above: Performed By: #### A ####[address] [address] (Urine)on 03-31-20 17 HCG ( test) Ql (U) Negative Normal Negative [facility] Comment on above: Performed By: #### U MIC1 ####[address] [address] Salic Level W/ doseon 2016 Salicylate <2.8 Normal 2.8-20.0 [facility] Comment on above: Performed By: #### S ALIC ####[address] [address] Urine Drug Screeningon 03-31 Amphetamines Negative [facility] Comment on above: Order Comment: Drug Screen Comment No Result Comment: cuto ff 1000 ng/mL Performed By: #### U MIC1 ####[address] [address] Barbiturates Negative [facility] Comment on above: Order Comment: Drug Screen Comment No Result Comment: cuto ff 200 ng/mL Performed By: #### U MIC1 ####[address] [address] Benzodiazepines Negative [facility] Comment on above: Order Comment: Drug Screen Comment No Result Comment: cuto ff 200 ng/mL Performed By: #### U MIC1 ####[address] [address] Cocaine Negative [facility] Comment on above: Order Comment: Drug Screen Comment No Result Comment: cuto ff 300 ng/mL Performed By: #### U MIC1 ####[address] [address] Opiates Negative [facility] Comment on above: Order Comment: Drug Screen Comment No Result Comment: cuto ff 300 ng/mL Performed By: #### U MIC1 ####[address] [address] pH 5.0 Normal 5.0-8.0 [facility] Comment on above: Order Comment: Drug Screen Comment No Performed By: #### U MIC1 ####[address] [address] Phencyclidine Negative Normal [facility] Comment on above: Order Comment: Drug Screen Comment No Result Comment: cuto ff 25 ng/mL Performed By: #### U MIC1 ####[address] [address] Specific [place] 1.020 Normal 1.015-1.025 [facility] Comment on above: Order Comment: Drug Screen Comment No Performed By: #### U MIC1 ####[address] [address] THC Positive Abnormal [facility] Comment on above: Order Comment: Drug Screen Comment No Result Comment: cuto ff 50 ng/mL Performed By: #### U MIC1 ####[address] [address] - - Normal [facility] Comment on above: Order Comment: Drug Screen Comment No Result Comment: .Albert linder Screen Comment:This assay provides a preliminary unconfirmed analytical testresult that may be suitable for the clinical management of patientsin certain situations. Some juok-gtf-cjskwwy medications, aswell as adulterants, may cause inaccurate results. Screen onlytesting does not meet the [facility] Forensic Urine Drug TestingProgram requirements as a forensic urine drug test for workplacetesting. . Performed By: #### U MIC1 ####[address] [address] [address] BRAIN WOon 03-28-2017 CT BRAIN WO [...] CT or MRI. Electronically Signed by Kunal Mraia03/28/2017 06:56 Normal [facility] EMERGENCY DEPARTMENTon 03-28 EMERGENCY DEPARTMENT [address] [address] HEALTH INFORMATION MANAGEMENT EMERGENCY DEPARTMENT : [phone] Signed Patient: PRANEETH PORRAS Acct:[id number] MRUN: [id number] : 1990 Sex: F Loc: ED ADM [...] Cardiology: Absent: chest pain, edema - GI Gastrointestinal/Abdo sheldon: Absent: abdominal pain, diarrhea, nausea, vomiting - Genitourinary Symptoms: Absent: dysuria - Neuro Neurological: Present: headache. Absent: depressed, emotional problems, numbness, paresthesia, pre-existing deficit, seizure, tingling, tremors, weakness, saddle anesthesia - Muskuloskeletal Musculoskeletal: Absent: back pain, joint pain, joint swelling - Integumentary Skin: Absent: lesions, rash - Allergic/Immunologic Immunological/Allergi c: Present: no symptoms reported - Hematologic Hematologic/Lymphatic : Absent: easy bleeding, easy bruising, swollen glands [...] mood - Skin Skin Color: Present: Normal, Bledsoe Skin exam: Present: warm, dry - Expanded [...] bloody (Clear) Urine pH 5 Ur Specific [place] 1.025 (1.015-1.025) Urine Protein 1+ A (Negative) [...] Reviewed and Agreed With?: Yes - Dictation Amendments/Documentat ion: [employer] Document Only Electronically Generated By: GISELA HENAO PA-C Generated Date/Time: 03/27/17 210 Electronically Signed By: GISELA HENAO PA-C Signed Date/Time 03/28/17 135 Co Signed Electronically By: Co Signed Date/Time: 03/28/17190003/28/171900 CC: TAMI HALL Normal [facility] (Urine)on 03-27-20 17 HCG ( test) Ql (U) Negative Normal Negative [facility] Comment on above: Performed By: #### P REGU ####[address] [address] UA w/reflex cultureon 2016 Appearance bloody Normal Clear [facility] Comment on above: Performed By: #### U ARC ####[address] [address] Bilirubin 1+ Abnormal Negative [facility] Comment on above: Result Comment: ?Met abolites of etodolac or high concentration of urobilinogen may causefalse positive results. Correlate clinically.? Performed By: #### U ARC ####[address] [address] Blood 250 Abnormal Negative [facility] Comment on above: Performed By: #### U ARC ####[address] [address] Collection Type COMPUTER ASSEMBLER Normal [facility] Comment on above: Performed By: #### U ARC ####[address] [address] Color Red. Abnormal Yellow [facility] Comment on above: Result Comment: CO RRECTED REPORT: Previous result was orange at 20:53 on 03/27/17 Performed By: #### U ARC ####[address] [address] Glucose NORMAL Normal Negative [facility] Comment on above: Performed By: #### U ARC ####[address] [address] Ketones 1+ Abnormal Negative [facility] Comment on above: Performed By: #### U ARC ####[address] [address] Leukocytes Esterase 2+ Abnormal Negative [facility] Comment on above: Performed By: #### U ARC ####[address] [address] Nitrites Positive Abnormal Negative [facility] Comment on above: Result Comment: Fals e-positive readings may be produced by medications that colors the urine red or which turns the red in an acid medium. .CORRECTED REPORT: Previous result was POSITIVE at 20:53 on 03/27/17 Performed By: #### U ARC ####[address] [address] pH 5 Normal [facility] Comment on above: Performed By: #### U ARC ####[address] [address] Protein 1+ Abnormal Negative [facility] Comment on above: Performed By: #### U ARC ####[address] [address] Specific [place] 1.025 Normal 1.015-1.025 [facility] Comment on above: Performed By: #### U ARC ####[address] [address] Urobilinogen 1 mg/dL Normal Normal-1.0 [facility] Comment on above: Performed By: #### U ARC ####[address] [address] Urine Microscopicon 10-30-20 17 Bacteria 1+ /hpf Normal 0 - 1+ [facility] Comment on above: Performed By: #### U MIC1 ####[address] [address] Casts COMPUTER ASSEMBLER Normal [facility] Comment on above: Performed By: #### U MIC1 ####[address] [address] Casts. COMPUTER ASSEMBLER Normal [facility] Comment on above: Performed By: #### U MIC1 ####[address] [address] Crystals COMPUTER ASSEMBLER Normal [facility] Comment on above: Performed By: #### U MIC1 ####[address] [address] Crystals. COMPUTER ASSEMBLER Normal [facility] Comment on above: Performed By: #### U MIC1 ####[address] [address] Epithelial Cells 3-6 Normal 0 - 6 [facility] Comment on above: Performed By: #### U MIC1 ####[address] [address] INR Coag RelTime (Bld) TNTC Normal 0 - 2 [facility] Comment on above: Performed By: #### U MIC1 ####[address] [address] Mucus COMPUTER ASSEMBLER Normal [facility] Comment on above: Performed By: #### U MIC1 ####[facility] [place] [address] Trichomonas COMPUTER ASSEMBLER Normal [facility] Comment on above: Performed By: #### U MIC1 ####[facility] [place] [address] WBC TNTC Normal 0 - 6 [facility] Comment on above: Performed By: #### U MIC1 ####[address] [address] Yeast COMPUTER ASSEMBLER Normal [facility] Comment on above: Performed By: #### U MIC1 ####[address] [address] Other COMPUTER ASSEMBLER Normal [facility] Comment on above: Performed By: #### U MIC1 ####[facility] [place] [address] Vital Signs Date Time Vital Sign Value Performing Clinician Facility 12-24-2024 00:00-0400 Heart rate 86 /min No Primary Care Physician [facility] 12-23-2024 22:29-0400 Body height 161.29 cm No Primary Care Physician [facility] 12-23-2024 22:29-0400 Body mass index (BMI) [Ratio] 22.1 kg/m2 No Primary Care Physician [facility] 12-23-2024 22:29-0400 Body temperature 97.5 [degF] No Primary Care Physician [facility] 12-23-2024 22:29-0400 Body weight 57.47 kg No Primary Care Physician [facility] 12-23-2024 22:29-0400 Diastolic blood pressure 88 mm[Hg] No Primary Care Physician [facility] 12-23-2024 22:29-0400 Respiratory rate 18 /min No Primary Care Physician [facility] 12-23-2024 22:29-0400 SaO2% (BldA) [Mass fraction] 100 % No Primary Care Physician [facility] 12-23-2024 22:29-0400 Systolic blood pressure 147 mm[Hg] No Primary Care Physician [facility] 09-24-2024 06:32-0400 Body height 160.02 cm No Primary Care Physician [facility] 09-24-2024 06:32-0400 Body mass index (BMI) [Ratio] 23 kg/m2 No Primary Care Physician [facility] 09-24-2024 06:32-0400 Body temperature 97.5 [degF] No Primary Care Physician [facility] 09-24-2024 06:32-0400 Body weight 58.9 kg No Primary Care Physician [facility] 09-24-2024 06:32-0400 Diastolic blood pressure 98 mm[Hg] No Primary Care Physician [facility] 09-24-2024 06:32-0400 Heart rate 68 /min No Primary Care Physician [facility] 09-24-2024 06:32-0400 Respiratory rate 18 /min No Primary Care Physician [facility] 09-24-2024 06:32-0400 SaO2% (BldA) [Mass fraction] 100 % No Primary Care Physician [facility] 09-24-2024 06:32-0400 Systolic blood pressure 144 mm[Hg] No Primary Care Physician [facility] 09-08-2024 13:24-0400 Body mass index (BMI) [Ratio] 22.46 kg/m2 Krislyn Aberegg PA Work Phone: [facility] 09-08-2024 13:24-0400 Body temperature 98.8 [degF] Krislyn Aberegg PA Work Phone: [facility] 09-08-2024 13:24-0400 Body weight 57.5 kg Krislyn Aberegg PA Work Phone: [facility] 09-08-2024 13:24-0400 Diastolic blood pressure 61 mm[Hg] Krislyn Aberegg PA Work Phone: [facility] 09-08-2024 13:24-0400 Heart rate 80 /min Krislyn Aberegg PA Work Phone: [facility] 09-08-2024 13:24-0400 Respiratory rate 18 /min Krislyn Aberegg PA Work Phone: [facility] 09-08-2024 13:24-0400 SaO2% (BldA) [Mass fraction] 99 % Krislyn Aberegg PA Work Phone: [facility] 09-08-2024 13:24-0400 Systolic blood pressure 96 mm[Hg] Krislyn Aberegg PA Work Phone: [facility] 11-02-2023 14:45-0400 Body mass index (BMI) [Ratio] 21.71 kg/m2 Krislyn Aberegg PA Work Phone: [facility] 11-02-2023 14:45-0400 Body temperature 97.7 [degF] Krislyn Aberegg PA Work Phone: [facility] 11-02-2023 14:45-0400 Body weight 55.6 kg Krislyn Aberegg PA Work Phone: [facility] 11-02-2023 14:45-0400 Diastolic blood pressure 72 mm[Hg] Krislyn Aberegg PA Work Phone: [facility] 11-02-2023 14:45-0400 Heart rate 76 /min Krislyn Aberegg PA Work Phone: [facility] 11-02-2023 14:45-0400 Respiratory rate 16 /min Krislyn Aberegg PA Work Phone: [facility] 11-02-2023 14:45-0400 SaO2% (BldA) [Mass fraction] 97 % Krislyn Aberegg PA Work Phone: [facility] 11-02-2023 14:45-0400 Systolic blood pressure 122 mm[Hg] Krislyn Aberegg PA Work Phone: [facility] 11-23-2022 05:10-0400 Body temperature 98.29 [degF] Shahzad Walker MD Work Phone: [facility] 11-23-2022 05:10-0400 Diastolic blood pressure 58 mm[Hg] Shahzad Walker MD Work Phone: [facility] 11-23-2022 05:10-0400 Heart rate 68 /min Shahzad Walker MD Work Phone: [facility] 11-23-2022 05:10-0400 Respiratory rate 19 /min Shahzad Walker MD Work Phone: [facility] 11-23-2022 05:10-0400 SaO2% (BldA) [Mass fraction] 100 % Shahzad Walker MD Work Phone: [facility] 11-23-2022 05:10-0400 Systolic blood pressure 110 mm[Hg] Shahzad Walker MD Work Phone: [facility] 09-26-2022 13:19-0400 Heart rate 64 /min Linda Whitehead MD Work Phone: [facility] 09-26-2022 13:19-0400 SaO2% (BldA) [Mass fraction] 98 % Linda Whitehead MD Work Phone: [facility] 09-26-2022 12:49-0400 Diastolic blood pressure 77 mm[Hg] Linda Whitehead MD Work Phone: [facility] 09-26-2022 12:49-0400 Systolic blood pressure 111 mm[Hg] Linda Whitehead MD Work Phone: [facility] 09-26-2022 12:09-0400 Body height 160 cm Linda Whitehead MD Work Phone: [facility] 09-26-2022 12:09-0400 Body mass index (BMI) [Ratio] 26.57 kg/m2 Linda Whitehead MD Work Phone: [facility] 09-26-2022 12:09-0400 Body temperature 99 [degF] Linda Whitehead MD Work Phone: [facility] 09-26-2022 12:09-0400 Body weight 68.04 kg Linda Whitehead MD Work Phone: [facility] 09-26-2022 12:09-0400 Respiratory rate 18 /min Linda Whitehead MD Work Phone: [facility] 08-07-2021 17:35-0500 Body temperature 97.39 [degF] Osbaldo Teran MD [facility] 08-07-2021 17:35-0500 Body weight 53.52 kg Osbaldo Teran MD [facility] 08-07-2021 17:35-0500 Diastolic blood pressure 90 mm[Hg] Osbaldo eTran MD [facility] 08-07-2021 17:35-0500 Heart rate 94 /min Osbaldo Teran MD [facility] 08-07-2021 17:35-0500 Respiratory rate 18 /min Osbaldo Teran MD [facility] 08-07-2021 17:35-0500 SaO2% (BldA) [Mass fraction] 99 % Osbaldo Teran MD [facility] 08-07-2021 17:35-0500 Systolic blood pressure 124 mm[Hg] Osbaldo Teran MD [facility] Encounters Encounter Date Encounter Type Care Provider Facility Start: 12-23-2024 End: 12-24-2024 Emergency department patient visit No Primary Care Physician -Emergency Department Work Phone: Start: 09-24-2024 End: 09-24-2024 Emergency department patient visit No Primary Care Physician -Emergency Department Work Phone: Start: 09-08-2024 End: 09-08-2024 ambulatory CANDEClifford LUCIANO III Facility:[facility] Start: 09-08-2024 End: 09-08-2024 Patient encounter procedure Miller BENITES Work Phone: [facility] Comment on above: Nasal sore (Primary Dx); Acute otitis externa of right ear, unspecified type Start: 08-14-2024 ambulatory [facility] Start: 05-20-2024 End: 05-20-2024 Emergency department patient visit No Primary Care Physician Facility:[facility] Start: 04-15-2024 End: 04-15-2024 Emergency department patient visit Daniel Ch Facility:[facility] Start: 11-03-2023 Telephone encounter Elise Lomeli APRN.CNP Work Phone: [facility] Comment on above: Results Start: 11-02-2023 End: 11-02-2023 ambulatory CANDE YOUNGEDGARDO PADILLA Facility:[facility] Start: 11-02-2023 End: 11-02-2023 Patient encounter procedure Miller BENITES Work Phone: [facility] Comment on above: Nausea and vomiting, unspecified vomiting type (Primary Dx); Dysuria; Exposure to strep throat Start: 10-05-2023 End: 10-05-2023 Emergency department patient visit [facility] Start: 02-09-2023 ambulatory THANIA GABRIELE [facility] Start: 01-23-2023 End: 01-24-2023 Emergency department patient visit THANIA [employer] [facility] Start: 11-23-2022 Emergency department patient visit SHAHZAD PEREZTESSIE [facility] Start: 11-23-2022 End: 11-23-2022 Emergency department patient visit SHAHZAD WALKER [facility] Start: 11-23-2022 End: 11-23-2022 Emergency department patient visit Shahzad Walker MD Work Phone: [facility] Comment on above: Acute cystitis with hematuria (Primary Dx) Start: 11-16-2022 End: 11-16-2022 ambulatory THANIA GABRIELE [facility] Start: 11-03-2022 ambulatory THANIA BENOUN [facility] Start: 10-26-2022 ambulatory THANIA SADOUN [facility] Start: 10-20-2022 End: 10-20-2022 ambulatory THANIA [employer] [facility] Start: 10-10-2022 End: 10-10-2022 ambulatory JEANIE HUNTER [facility] Start: 09-26-2022 End: 09-26-2022 Emergency department patient visit LINDA WHITEHEAD [facility] [employer] Start: 09-26-2022 End: 09-26-2022 Emergency department patient visit Linda Whitehead MD Work Phone: [facility] Emergency Dept Comment on above: Pelvic cramping (Luna rowan Dx) Start: 08-26-2021 End: 08-27-2021 Emergency department patient visit CECELIACatherine HERNANDEZ [facility] Start: 08-16-2021 End: 08-17-2021 ambulatory JUSTIN AMES [facility] Start: 08-16-2021 End: 08-16-2021 Subsequent hospital visit by physician [facility] Start: 08-08-2021 End: 08-13-2021 Evaluation and management of inpatient [facility] Start: 08-07-2021 End: 08-08-2021 Emergency department patient visit [facility] Start: 08-07-2021 End: 08-08-2021 Emergency department patient visit Osbaldocatherine Teran [facility] ED Comment on above: Depression with suic [...] 11-23-2022 Ct abdomen & pelvis w/contrast material Shahzad Walker MD Work Phone: Start: 11-23-2022 End: [...] nonobstetric real-time image complete Jeanie Hunter APRN COMPUTER ASSEMBLER Work Phone: Start: 09-26-2022 Comprehensive metabolic panel Jeanie Hunter APRN COMPUTER ASSEMBLER Work Phone: Start: 09-26-2022 End: 09-26-2022 Urine test visual color cmprsn meths Jeanie Hunter APRN COMPUTER ASSEMBLER Work Phone: Start: 08-16-2021 Antibody hiv-1&hiv-2 single result Justin Ames SHOW DESIGN SUPERVISOR - [employer] Work Phone: Start: 08-16-2021 Comprehensive metabolic panel Justin Sotoer SHOW DESIGN SUPERVISOR - [employer] Work Phone: Start: 08-16-2021 Urinalysis microscopic only Justin Ames SHOW DESIGN SUPERVISOR - [employer] Work Phone: Start: 08-16-2021 Urnls dip stick/tablet rgnt auto w/o microscopy Justin Ames SHOW DESIGN SUPERVISOR - [employer] Work Phone: Start: 08-07-2021 COVID-19, RAPID Osbaldo Teran MD Start: 08-07-2021 Ecg routine ecg w/least 12 lds w/i&r Mabel Long SHOW DESIGN SUPERVISOR - [employer] Work Phone: Start: 08-07-2021 Assay of acetaminophen Mabel Long SHOW DESIGN SUPERVISOR - [employer] Work Phone: Start: 08-07-2021 Assay of magnesium Mabel Long APR N - [employer] Work Phone: Start: 08-07-2021 Assay of salicylate Mabel Long APR N - [employer] Work Phone: Start: 08-07-2021 BASIC METABOLIC PANEL W/ REFLEX TO MG FOR LOW K Mabel Long SHOW DESIGN SUPERVISOR - [employer] Work Phone: Start: 08-07-2021 Urinalysis microscopic only Mabel Long SHOW DESIGN SUPERVISOR - [employer] Work Phone: Start: 08-07-2021 Urine test visual color cmprsn meths Mabel Long SHOW DESIGN SUPERVISOR - [employer] Work Phone: Plan of Treatment Date Care Activity Detail Author Start: 12-23-2024 Polymerase chain tyson ction analysis [facility] Start: 12-23-2024 [facility] Start: 12-23-2024 Chlamydia/Neisseria (PCR) Chla mydia/Neisseria (PCR) [facility] Start: 09-24-2024 [facility] Start: 01-28-2024 Covid-19 Vaccine ( season) Covid-19 Vaccine ( season) [facility] Start: 01-28-2024 Influenza vaccination [facility] Start: 10-11-2023 Depression screening using PHQ-9 (Patient Health Questionnaire 9) score DEPRESSION SCREENING [facility] Start: 05-29-2023 Behavioral Health Screening Behavioral Health Screening [facility] Start: 02-09-2023 End: 02-09-2023 Patient encounter procedure 02/09/2023 Appointment [place] [address] [place] [address] [facility] Start: 01-27-2023 Covid-19 Vaccine ( season) Covid-19 Vaccine ( season) [facility] Start: 01-27-2023 Influenza vaccinatio n given INFLUENZA VACCINE (Season Ended) [facility] Start: 11-24-2022 End: 11-24-2022 Patient encounter procedure 11/24/2022 Office Visit Obstetrics and Gynecology Mercedes Mccarthy APRN [employer] [address] [place] [address] [facility] Start: 01-17-2022 Screening for malign ant neoplasm of cervix Pap Testing [facility] Start: 2021 Screening for malign ant neoplasm of cervix HPV Testing [facility] Start: 01-27-2021 Influenza vaccination Flu vaccine (# 1) [facility] Start: 01-18-2020 Screening for malign ant neoplasm of cervix Cervical Cancer Screening [facility] Start: 2012 Screening for malign ant neoplasm of cervix PAP SMEAR [facility] Start: 2010 Hepatitis B Vaccine (1 of 3 - 19+ 3-dose series) Hepatitis B Vaccine (1 of 3 - 19+ 3-dose series) [facility] Start: 2010 Urine microalbumin profile DTaP,Tdap,Td Vaccine (1 - Tdap) [facility] Start: 2009 ANNUAL WELLNESS VISIT ANNUAL WELLNES S VISIT [facility] Start: 2009 Anxiety Screening Anxiety Screening [facility] Start: 2009 Depression Screening Depression Scre ening [facility] Start: 2009 Hepatitis C screening Hepatitis C Sc reening [facility] Start: 2009 HIV screening HIV Screening [facility] Start: 2003 Depression screening using PHQ-9 (Patient Health Questionnaire 9) score DEPRESSION SCREENING [facility] Start: 2002 Administration of diphtheria + tetanus + acellular pertussis vaccine DTAP/TDAP/TD VACCINE (1 - Tdap) [facility] Start: 1996 COVID-19 Vaccine (1) COVID-19 Vaccin e (1) [facility] Start: 1991 COVID-19 VACCINE (#1) COVID-19 VACCI NE (#1) [facility] Bacteria identified in Urine by Culture URINE CULTURE Microbiology Routine Nausea and vomiting, unspecified vomiting type Dysuria 11/02/2023 3:03 PM EDT [facility] Work Phone: End: 09-26-2022 Dark Green Top [facility] Comment on above: Once for 1 Occurrenc es starting 09/26/2022 until 09/26/2022, 1 completed End: 11-23-2022 Dark Green Top Dark [facility] Lab SO Once for 1 Occurrences starting 11/23/2022 until 11/23/2022, 1 completed [facility] Comment on above: Once for 1 Occurrenc es starting 11/23/2022 until 11/23/2022, 1 completed Dark Green Top Dark Green Top L ab SO 11/23/2022 1:19 AM EDT [facility] EKG 12 Lead EKG 12 Lead ECG STAT 08/07/2021 6:52 PM [facility] Work Phone: End: 09-26-2022 Gold Top [facility] Comment on above: Once for 1 Occurrenc es starting 09/26/2022 until 09/26/2022, 1 completed End: 11-23-2022 Gold Top Gold Top Lab SO Once for 1 Occurrences starting 11/23/2022 until 11/23/2022, 1 completed [facility] Comment on above: Once for 1 Occurrenc es starting 11/23/2022 until 11/23/2022, 1 completed Gold Top Gold Top Lab ASA P 11/23/2022 1:19 AM EDT [facility] End: 11-23-2022 Lavender Top [facility] Lab SO Once for 1 Occurrences starting 11/23/2022 until 11/23/2022, 1 completed [facility] Comment on above: Once for 1 Occurrenc es starting 11/23/2022 until 11/23/2022, 1 completed Lavender Top [facility] Lab SO 11/23/2022 1:19 AM EDT [facility] End: 09-26-2022 LIGHT BLUE TOP [facility] Comment on above: Once for 1 Occurrenc es starting 09/26/2022 until 09/26/2022, 1 completed End: 11-23-2022 LIGHT BLUE TOP LIGHT BLUE TOP Lab SO Once for 1 Occurrences starting 11/23/2022 until 11/23/2022, 1 completed [facility] Comment on above: Once for 1 Occurrenc es starting 11/23/2022 until 11/23/2022, 1 completed LIGHT BLUE TOP LIGHT BLUE TOP L ab SO 11/23/2022 1:19 AM EDT [facility] End: 11-23-2022 Light Green Top Light Green Top Lab SO Once for 1 Occurrences starting 11/23/2022 until 11/23/2022, 1 completed [facility] Comment on above: Once for 1 Occurrenc es starting 11/23/2022 until 11/23/2022, 1 completed Light Green Top Light [facility] Lab SO 11/23/2022 1:19 AM EDT [facility] End: 08-07-2021 [facility] Comment on above: One Time for 1 Occur rences starting 08/07/2021 until 08/07/2021 Patient Education [facility] Work Phone: Patient referral [facility] Work Phone: End: 09-26-2022 RAINBOW DRAW [facility] Work Phone: Comment on above: One Time for 1 Occur rences starting 09/26/2022 until 09/26/2022 End: 11-23-2022 RAINBOW DRAW [facility] SO One Time for 1 Occurrences starting 11/23/2022 until 11/23/2022 [facility] Work Phone: Comment on above: One Time for 1 Occur rences starting 11/23/2022 until 11/23/2022 RAINBOW DRAW [facility] SO 11/23/2022 1:19 AM EDT [facility] Payers Date Payer Category Payer Self-pay 2023 Medicaid [employer] Member Ibanez bscriber Plan / Payer (Effective 2023-Present) Name: Praneeth Porras Relation to Subscriber: Self Name: Praneeth Porras Payer ID: [id number] (NAIC) Group ID: Not on file Type: Medicaid Address: [place] [address] [id number] 2022 Private Health Insurance [id number] 2016 Unknown [id number] 2012 Private Health Insurance [id number] 1991 Unknown [id number] 2.16.840.1.418184.3.579.2. 176 1991 Unknown [id number] 2.16.840.1.494643.3.579.2. 173 1991 Unknown [id number] 2.16.840.1.022092.3.579.2. 173 1991 Unknown [id number] 2.16.840.1.900563.3.579.2. 173 1991 Unknown [id number] 2.16.840.1.484170.3.579.2. 297 1991 Unknown [id number] 2.16.840.1.052312.3.579.2. 297 1991 Unknown [id number] 2.16.840.1.295619.3.579.2. 297 1991 Unknown [id number] 2.16.840.1.465914.3.579.2. 297 1991 Unknown [id number] 2.16.840.1.410287.3.579.2. 297 1991 Unknown [id number] 2.16.840.1.094151.3.579.2. 297 1991 Unknown [id number] 2.16.840.1.081382.3.579.2. 297 1991 Unknown [id number] 2.16.840.1.613845.3.579.2. 297 1991 Unknown [id number] 2.16.840.1.267539.3.579.2. 297 1991 Unknown [id number] 2.16.840.1.589867.3.579.2. 651 1991 Unknown [id number] 2.16.840.1.096297.3.579.2. 651 Unknown [id number] 2.16.840.1.911981.3.579.2. 462 Unknown [id number] 2.16.840.1.569265.3.579.2. 462 Unknown [id number] 2.16.840.1.057699.3.579.2. 462 Unknown [id number] 2.16.840.1.288255.3.579.2. 462 Social History Date Type Detail Facility Start: 08-07-2021 End: 12-23-2024 Tobacco smoking status NHIS Smokes tobacco daily [facility] Phone: History of tobacco use [facility] Phone: Start: 08-07-2021 End: 11-02-2023 Tobacco use and exposure Smokeless tobacco non-user [facility] Phone: Start: 1990 Sex Assigned At Not on file [facility] Phone: Start: 07-09-2021 End: 09-26-2022 Exposure to SARS-CoV-2 (event) Not sure [facility] Phone: Start: 08-08-2021 Alcohol intake Ex-drinker (finding) [facility] Phone: History of tobacco use Cigarette Smoker [facility] Start: 09-26-2022 End: 09-08-2024 Cigarettes smoked current (pack per day) - Reported 0.5 [facility] Start: 09-26-2022 End: 11-23-2022 Alcohol intake Lifetime non-drinker (finding) [facility] Start: 1990 [facility] Start: 10-10-2022 History SDOH Financial [address] [facility] Start: 10-10-2022 History SDOH Transport Med 1 [facility] Start: 11-02-2023 Tobacco smoking status NHIS Ex-smoker [facility] History of tobacco use Current smoker [facility] Start: 11-02-2023 End: 09-08-2024 Alcohol intake Current non-drinker of alcohol (finding) [facility] Start: 11-02-2023 End: 09-08-2024 Tobacco use panel [facility] Start: 09-24-2024 Sex Female (finding) [facility] NEGATED: Highlighted row Not [facility] Clinical Notes 09-26-2022 to 09-24-2024 Miller Keyes PA - 09/08/2024 1:31 PM EDTTelephone Celina - Sedrick Cox - 11/03/2023 5:59 PM EDTTelephone Encounter - Sedrick Cox - 11/03/2023 5:59 PM EDTPatient Instructions Note [...] ER should you have any further concerns [facility] Work Phone: 09-08-2024 Note HNO ID: [id number] Author: MILLER KEYES PA Service: ? Author Type: Physician Crisis Mental Health Therapist Type: Progress Notes Filed: 09/08/2024 13:39 Note Text: [facility] Subjective Praneeth Porras is a [...] suggestive Disposition The patient was discharged. Procedures [facility] 09-08-2024 History of Presen t illness [...] was discharged. Procedures documented in this encounter [facility] 11-03-2023 Telephone encounter Note Patient verbally understands culture was normal and if symptoms persist to see PCP. Sedrick Cox [facility] 11-03-2023 Miscellaneous Notes Patient verbally understands culture was normal and if symptoms persist to see PCP. Sedrick Cox Patient's urine culture came back with normal blanca. Please call patient let her know if her symptoms are persistent that she should follow-up with primary care. documented in this encounter [facility] 11-03-2023 Telephone encounter Note Patient's urine culture came back with normal blanca. Please call patient let her know if her symptoms are persistent that she should follow-up with primary care. [facility] Work Phone: 11-02-2023 Instructions Miller Keyes [...] such as tea, flat jude mariza or lemon-mashpee soda, broth and gelatin. -If liquids are [...] decreased urination, develop. documented in this encounter [facility] 11-02-2023 Note HNO ID: [id number] Author: MILLER KEYES PA Service: ? Author Type: Physician Crisis Mental Health Therapist Type: Progress Notes Filed: 11/02/2023 15:05 Note Text: This note was created using [employer]. Subjective Praneeth Porras is a 33 year [...] detail warranting prompt ER evaluation. KAMARI Posadas [facility] 11-02-2023 History of Presen t illness Narrative This note was created using [employer]. Subjective Praneeth Porras is a 33 year [...] evaluation. KAMARI Posadas documented in this encounter [facility] 11-23-2022 Hospital Discharg e instructions Shahzad Walker MD - 11/23/2022 4:59 AM EDT Follow up with your primary care doctor. Please return to the Emergency Department for any new or worsening symptoms. documented in this encounter [facility] 11-23-2022 Emergency department Note Obtained 2 IVs using ultrasound, an 18G in LAC and 20G in RAC, both with blood return. Pt insisted both be removed immediately after flushing, she states she cantaste the saline and something must be wrong Pt now has no IV and blood has not been collected. ERP aware. [facility] 11-23-2022 Emergency department Note Obtained 2 IVs [...] from the original note were not included. [facility] Emergency Department - [place] ED Course/Medical Decision Making: Praneeth Porras, date [...] mcg (50 mcg IV Push Given 11/23/22 030) ondansetron hcl (ZOFRAN) injection 4 mg (4 mg IV Push Given 11/23/22 0253) sodium chloride 0.9% bolus 0.9 % solution 1,000 mL (0 mLs Intravenous Stopped 11/23/22 0413) cefTRIAXone (ROCEPHIN) IM injection 1 g (1 g Intramuscular Given 11/23/22 025) LORazepam (ATIVAN) tablet 1 mg (1 mg [...] following orders were created for panel order [facility] Procedure Abnormality Status --------- ------ Gold Top[[id number]] In process LIGHT BLUE TOP[[id number]] In process Light Green Top[[id number]] In process Lavender Top[[id number]] In process Dark Green Top[[id number]] In process Please view results for these [...] identified. Shahzad Walker MD 11/23/22, 5:00 AM [facility] Phys[facility] This note was partially generated using [employer] Dictation system, and there may be some incorrect words, spellings, and punctuation that were not noted in checking the note before saving. Shahzad Walker MD 11/23/22 0500 documented in this encounter [facility] 11-23-2022 Emergency department Triage note PT c/o hematuria. PT states that this started yesterday. C/O pain in lower back and pelvic area more with urination but constant. PT is alert and oriented x 4 Resp are equal and unlabored Skin pwd [facility] 11-23-2022 Physician Emergency department Note Images from the original note were not included. [facility] Emergency Department - [place] ED Course/Medical Decision Making: Praneeth Porras, date [...] following orders were created for panel order [facility]. Procedure Abnormality Status --------- ------ Gold Top[[id number]] In process LIGHT BLUE TOP[[id number]] In process Light Green Top[[id number]] In process Lavender Top[[id number]] In process Dark Green Top[[id number]] In process Please view results for these [...] identified. Shahzad Walker MD 11/23/22, 5:00 AM [facility] This note was partially generated using anfixation system, and there may be some incorrect words, spellings, and punctuation that were not noted in checking the note before saving. Shahzad Walker MD 11/23/22 0500 [facility] 09-26-2022 Emergency department Note at bedside. [facility] 09-26-2022 Emergency department Note at bedside. Pt's [...] SERUM(DO NOT USE FOR TUMOR MARKER, SEE [id number]) CBC AND DIFFERENTIAL RAINBOW DRAW Narrative: The following orders were created for panel order [facility]. Procedure Abnormality Status --------- ------ Gold Top[[id number]] In process LIGHT BLUE TOP[[id number]] In process Dark Green Top[[id number]] In process Please view results for these tests on the individual orders. GOLD TOP LIGHT BLUE TOP DARK GREEN TOP US Pelvis-Torsion Study Final Result AGE-APPROPRIATE UTERUS AND OVARIES. : Spoke with Dr. Whitehead regarding patient. Physician to complete their own physical exam and evaluation. Collaboration performed between this GREEN CHAIN MARKER and physician regarding patient's plan of care. [...] Procedures Medical Decision Making Jeanie Hunter APRN NP 09/26/22 1450 Pt arrives to ED via private vehicle. [...] unlabored. NAD noted. documented in this encounter [facility] 09-26-2022 Emergency department Note Pt's HR 47. This nurse in to check on pt. Pt sleeping in bed and easily awakens to name. Pt awake and HR 68. aware. [facility] 09-26-2022 Emergency department Note Patient to ultrasound at this time [facility] 09-26-2022 Physician Emergency department Note ED Diagnosis [...] SERUM(DO NOT USE FOR TUMOR MARKER, SEE [id number]) CBC AND DIFFERENTIAL RAINBOW DRAW Narrative: The following orders were created for panel order [facility]. Procedure Abnormality Status --------- ------ Gold Top[[id number]] In process LIGHT BLUE TOP[[id number]] In process Dark Green Top[[id number]] In process Please view results for these tests on the individual orders. GOLD TOP LIGHT BLUE TOP DARK GREEN TOP US Pelvis-Torsion Study Final Result AGE-APPROPRIATE UTERUS AND OVARIES. : Spoke with Dr. Whitehead regarding patient. Physician to complete their own physical exam and evaluation. Collaboration performed between this GREEN CHAIN MARKER and physician regarding patient's plan of care. [...] Procedures Medical Decision Making Jeanie Hunter APRN COMPUTER ASSEMBLER 09/26/22 [address] [facility] [facility] 09-26-2022 Emergency department Triage note Pt [...] A&Ox4. RR easy and unlabored. NAD noted. [facility] [employer] [facility] Evaluation note Diagnosis Depression with suicidal ideation- Primary Hypokalemia Hypopotassemia [facility]* Diagnosis Pelvic cramping- Primary Unspecified symptom associated with female genital organs [facility] Acute cystitis with hematuria- Primary Acute cystitis [facility] Diagnosis Nausea and vomiting, unspecified vomiting type- Primary Dysuria Exposure to strep throat Contact with or exposure to other communicable diseases [facility] Diagnosis Nasal sore- Primary Other diseases of nasal cavity and sinuses Acute otitis externa of right ear, unspecified type documented in this encounter [facility] noteNo assessment information availableWOhio State Harding Hospital Work Phone: Hospital Discharge instructions* Attachments The following attachments cannot be sent through Care Everywhere. * Pelvic Pain (Colombian Singaporean) [facility] (n[facility]ative)* Consultation (Routine) - Open Specialty Diagnoses / Procedures Referred By Karen gonzalez Referred To Contact Family Medicine Diagnoses Pelvic cramping Jeanie Hunter APRN COMPUTER ASSEMBLER [address] [place] [address] [facility] [address] [place] [address] [place] [address] Referral ID Status Reason Start Date Expiration Date Visits Re quested Visits Authorized [id number] Open 09/26/2022 10/28/[address] [facility] (narrative)No reason for referral information availableWOhio State Harding Hospital Work Phone: Summary Purpose Family History [...] Do you have a Healthcare Power of Ict Systems Test Engineer? No September 24, 2024 6:35am Advance Directive Response Recorded Date/ Time Do you have a Healthcare Power of Ict Systems Test Engineer? No September 24, 2024 6:35am Do you have a Healthcare Power of Ict Systems Test Engineer? No December 23, 2024 10:36pm Chief Complaint and Reason for Visit Chief Complaint Admit Date eye problem September 24, 2024 6:3 2am Chief Complaint Admit Date eye problem September 24, 2024 6:3 2am female c/o December 23, 2024 10:2 7pm Additional Source Comments INFORMATION SOURCE (unrecogn ized section and content) DATE CREATED AUTHOR 12/09/2017 [facility] DATE CREATED AUTHOR AUTHOR'S ORGANIZ ATION 07/19/2019 [facility] ([place]) DATE CREATED AUTHOR AUTHOR'S ORGANIZ ATION 02/07/2021 [facility] DATE CREATED AUTHOR AUTHOR'S ORGANIZ ATION 08/13/2021 [facility] DATE CREATED AUTHOR AUTHOR'S ORGANIZ ATION 08/29/2021 [facility] DATE CREATED AUTHOR AUTHOR'S ORGANIZ ATION 09/01/2021 [facility] DATE CREATED AUTHOR AUTHOR'S ORGANIZ ATION 06/17/2023 [facility] DATE CREATED AUTHOR AUTHOR'S ORGANIZ ATION 08/16/2024 [facility] DATE CREATED AUTHOR AUTHOR'S ORGANIZ ATION 09/09/2024 [facility] DATE CREATED AUTHOR AUTHOR'S ORGANIZ ATION 12/25/2024 [facility] Reason for Visit (unrecogniz ed section [...] sodium intake 2027 (Given - Provider: Bailey Golden RN) potassium chloride (KLOR-CON M) extended release tablet 40 mEq 40 mEq, Oral, 2 TIMES DAILY, First dose on 08/07/21 at 2100, Do not crush, chew, or suck on tablet. Tablet may also be broken in half and each half swallowed separately. 1926 (Given - Provider: Trista Ching RN) 0900 (Due)2099 (Due) Scheduled Medication Order 09/24/2022 09/25/2022 09/26/2022 Ketorolac (TORADOL) injection 30 mg (COMPLETED) 30 mg, IV Push, NOW, 1 dose, On Mon09/26/22 at 1415 1350 (Given - Provid er: Mony Serra RN) Scheduled Medication Order 11/21/2022 11/22/2022 11/23/2022 cefTRIAXone [...] Radiology 0321 (Given - Provid er: Mary Martinez RT) LORazepam (ATIVAN) tablet 1 mg (COMPLETED) 1 mg, Oral, ONCE, 1 dose, On Mon11/23/22 at 0300, Caution: This medication looks and/or sounds like another medication. 0226 (Given - Provid er: Bernadette Rivera RN) ondansetron hcl (ZOFRAN) injection 4 mg (COMPLETED) 4 mg, IV Push, NOW, 1 dose, On Mon11/23/22 at 0145, Caution: This medication looks and/or sounds like another medication. 025 (Given - Provid er: Bernadette Rivera RN) sodium chloride 0.9% bolus 0.9 % solution 1,000 mL (COMPLETED) 1,000 mL, Intravenous, Administer over 31 Minutes, On Mon11/23/22 at 0145, ONCE, 1 dose 0151 (New Bag - Prov ider: Bernadette Rivera RN)0158 (Stopped - Provider: Bernadette Rivera RN)0251 (Restarted - Provider: Bernadette Rivera RN)0413 (Stopped - Provider: Bernadette Rievra RN) Care Teams (unrecognized sec tion and content) Pocket Closer Relationship Specialty Start [place] [id number] [place] [address] PCP - General Family Medicine 10/13/22 Pocket Closer Relationship Specialty Start Date End Date Cande Luciano III PCP - General Family Medicine 01/13/17 Pocket Closer Relationship Specialty Start Date End Date LucianoCande hernandez III PCP - General Family Medicine 01/13/17 Pocket Closer Relationship Specialty Start Date End Date LucianoCande hernandez III PCP - General Family Medicine 01/13/17 Team Status: Active Member Role Status Dates No Primary Care Physician Primary Care Provider Active Team Status: Inactive Member Role Status Dates No Primary Care Physician Primary Care Provider Active Start: September 24, 2024 End: September 24, 2024 Dr. Jerod Davis DO Emergency Provider Active Start: September 24, 2024 End: September 24, 2024 Team Status: Active Member Role/Relationship Status Dates No Primary Care Physician Primary Care Provider Active Team Status: Inactive Member Role/Relationship Status Dates No Primary Care Physician Primary Care Provider Active Start: September 24, 2024 End: September 24, 2024 Dr. Jerod Davis DO Attending Provider Active Start: September 24, 2024 End: September 24, 2024 Dr. Jerod Davis DO Emergency Provider Active Start: September 24, 2024 End: September 24, 2024 Team Status: Inactive Member Role/Relationship Status Dates No Primary Care Physician Primary Care Provider Active Start: December 23, 2024 End: December 24, 2024 Dr. Kyle Fan MD Emergency Provider Active Start: December 23, 2024 End: December 24, 2024 Source Comments (unrecognize d section and content) In the event this informatio n is protected by the Federal Confidentiality of Alcohol and Drug Abuse Patient Records regulations: The Federal rules restrict any use of the information to criminally investigate or prosecute any alcohol or drug abuse patient.[facility] the event this information is protected by the Federal Confidentiality of Alcohol and Drug Abuse Patient Records regulations: The Federal rules restrict any use of the information to criminally investigate or prosecute any alcohol or drug abuse patient.[facility] the event this information is protected by the Federal Confidentiality of Alcohol and Drug Abuse Patient Records regulations: The Federal rules restrict any use of the information to criminally investigate or prosecute any alcohol or drug abuse patient.[facility] Goals (unrecognized section and content) Goals may be documented in a n alternate sectionGoals may be documented in an alternate section FOR RECORDS PERTAINING TO PATIENTS [...] BE BASED ON THE PRIMARY CLINICAL RECORDS. [facility]. provides no warranty or guarantee of the accuracy or completeness of information in this document.
--- NOTE | 2025-01-30 22:43 | RAD_ITS ---
PROCEDURE: FOOT MIN 3 VIEWS 01/30/2025 REASON FOR EXAM: PAIN TECHNIQUE: Procedure Code: RADFO Modality: DX Procedure: FOOT MIN 3 VIEWS Laterality: LEFT. COMPARISON: NONE. FINDINGS: Normal talus, calcaneus, and tarsal bones. Normal visualized subtalar, talonavicular, calcaneocuboid, tarsal and tarsometatarsal articulations. Normal metatarsi. Normal metatarsophalangeal joint of the great toe. Normal tibial and fibular sesamoid bones. Normal interphalangeal joint of the great toe. Normal phalanges of the great toe. Normal second through fifth metatarsophalangeal joints. Normal interphalangeal joints of the lesser toes. Normal phalanges of the lesser toes. RAD/Foot min 3 Views IMPRESSION: No evidence for acute abnormality. Reading [facility] [id number]
[2025-01-31 00:07] VITALS: BP 130/82; PULSE 95; RESP 18; TEMP 36.4; O2SAT 100
== END 2025-01-31 00:20 | disposition home or self-care (01) ==
PROVIDERS: Emergency Provider Emergency Medicine; Visit Provider Emergency Medicine
DX: S90.32XA Contusion of left foot, initial encounter (principal); F20.9 Schizophrenia, unspecified; Z86.711 Personal history of pulmonary embolism; W22.8XXA Striking against or struck by other objects, initial encounter; Z79.899 Other long term (current) drug therapy; F17.290 Nicotine dependence, other tobacco product, uncomplicated
CPT/HCPCS: 73630; 99283

== ENCOUNTER 2025-02-02 10:55 | Emergency (ER) | payer SELFPAY ==
[2025-02-02 10:56] VITALS: BP 154/91; PULSE 85; RESP 16; TEMP 37; O2SAT 99; BMI 24.0
[2025-02-02 11:19] LABS: Mucous, Urine 0 SEEN /hpf (<or=2+); Red Blood Cells-Urine 0 SEEN /hpf (0-5)
--- OUTSIDE RECORDS SUMMARY | 2025-02-02 11:27 | XMS RPT_ITS | CCD ---
Author Organization [facility]iniSywa Care Team Providers Care Drill Sergeant Name Role Phone GISELA HENAO Unavailable Unavailable [...] III, Cande Bassem Primary Care Provide r BOSTON JONES DO Consulting Unavailable BOSTON JONES DO Referring Unavailable YKLE KHAN MD Admitting Unavailable KYLE KHAN MD [...] Unavailable Ryan GARCIAS, Dr. Newsome Emergency Provider [phone] Ryan GARCIAS, Dr. Newsome Attending Provider Meng MATTA, Dr. Wright Emergency Provider Care Physician, No Primary Primary Care Provider Unavailable Meng MATTA, Dr. Wright Attending Provider Anddamien GARCIAS, Dr. Newsome Emergency Provider Care Physician, No Primary Primary Care Unava ilable Jerod Davis Attending Unavailable Care Physician, No Primary Primary Care Unava ilable Jerod Davis Attending Unavailable Care Physician, No Primary Primary Care Unava ilable Kyle Fan Attending Unavailable Care Physician, No Primary Primary Care Unava ilable Fran Nice Attending Unavailable Care Physician, No Primary Primary Care Unava ilable Daniel Ch Attending Unavailable Allergies Allergy Classification Reported Allergen(s) Allergy Type Date of Onset Reaction(s) Facility (7 sources) QUEtiapine Drug Allergy 2 Shortness Of Breath [facility] (6 sources) Latex; Translations: [LATEX] Propensity to adverse reactions to drug 7 Itching [facility] (1 source) Ciprofloxacin Drug Allergy 3 Muscle Aches [facility] (1 source) 08/11/2018 (-) MRSA SCREEN NARES; Translations: [08/11/2018 (-) MRSA SCREEN NARES] Propensity to adverse reactions (disorder) [facility] (1 source) QUEtiapine Drug Allergy [facility] Repository Medications Current Medications Medication Drug Class(es) Dates Sig (Normalized) Sig (Original) acetaminophen 500 mg oral tablet (1 source) Start: 10-05-2020 acetaminophen (TYLENOL) tablet 500 mg acetaminophen 325 mg / oxyCODONE hydrochloride 5 mg oral tablet (1 source) Opioid Agonist Start: 01-30-2025 take 1 tablet by mouth every six hours as needed for pain Oxycodone-Acetamin ophen (Percocet) 5-325 mg tablet Active 1 {tbl} PO EVERY 6 HOURS as needed for pain 12 3 0 January 30, 2025 Contusion of left foot Contusion of left foot, initial encounter amphetamine aspartate 2.5 mg / amphetamine sulfate [...] Start: 11-23-2022 take 1 capsule by mo ut four times daily cephalexin (KEFLEX) 500 MG [...] Active doxycycline monohydrate 100 mg oral capsule (7 sources) Tetracycline-class Drug Start: 12-23-2024 take 1 capsule by mouth twice daily Doxycycline Monohydrate 100 mg capsule Active 100 mg PO TWICE A DAY 14 0 December 23, 2024 12:00am Start: 09-08-2024 End: [...] 11/30/2022 Active ibuprofen 600 mg oral tablet (5 sources) Nonsteroidal Anti-inflammatory Drug Start: 01-30-2025 take 1 tablet by mouth four times daily as needed for pain Ibuprofen 600 mg tablet Active 600 mg PO 4 TIMES DAILY as needed for pain 40 0 January 30, 2025 11:40pm Start: 10-05-2020 take 1 tablet by magali th every six hours as needed for pain [...] within 12 hours or as directed by 30 patch 0 10/05/2020 Active lithium carbonate 300 mg oral capsule (2 sources) Start: 08-07-2021 lithium capsule 600 mg take 1 capsule by mouth at bedti me lithium 600 MG capsule Take 600 mg by mouth at bedtime 0 Active lurasidone hydrochloride 20 mg oral tablet (3 sources) Atypical Antipsychotic Start: 09-24-2024 take 1 [...] Start: 08-14-2021 take 1 tablet by magali once daily paliperidone (INVEGA) 3 MG extended [...] 1 g ciprofloxacin 3 mg/ml ophthalmic solution (3 sources) Quinolone Antimicrobial Start: 09-24-2024 End: 12-23-2024 Ciprofloxacin Hcl 0.3 % drops Discontinued 2 NMA EACH EYE 4 TIMES DAILY 10 7 0 September 24, 2024 12:00am December 23, 2024 10:39pm dicyclomine hydrochloride 10 mg oral capsule (3 sources) Anticholinergic Start: 04-15-2024 End: 09-24-2024 take 1 capsule by mouth three times daily Dicyclomine 10 mg capsule Discontinued 10 mg PO THREE TIMES A DAY 15 5 0 April 15, 2024 1:00am September 24, 2024 [...] mg ondansetron 4 mg disintegrating oral tablet (7 sources) Serotonin-3 Receptor Antagonist Start: 04-15-2024 End: [...] mg / trimethoprim 160 mg oral tablet (3 sources) Dihydrofolate Reductase Inhibitor Antibacterial, Sulfonamide Antimicrobial Start: 04-21-2020 End: 04-15-2024 Sulfamethoxazole-Tri methoprim 1 TABLET tablet Discontinued 1 {tbl} PO TWICE A DAY 6 April 21, 2020 1:00am April 15, 2024 [...] 10-10-2022 Chronic Crushing injury or internal injury (3 sources) Crush injury of right hand; Translations: [...] Episodic Inflammatory diseases of female pelvic organs (4 sources) Acute parametritis and pelvic cellulitis; Translations: [...] 11-02-2023 Episodic Other aftercare (2 sources) Other skilled nursing (current) drug therapy; Translations: [Other termite exterminator (current) drug therapy] Onset: 01-23-2023 Episodic Other [...] 09-08-2024 Episodic Schizophrenia and other psychotic disorders (5 sources) Schizoaffective disorder, bipolar type; Translations: [Schizoaffective disorder, bipolar type] Onset: 08-08-2021 08-08-2021 Chronic Substance-related disorders (3 sources) Stimulant dependence; Translations: [Other stimulant dependence, in remission] Onset: 08-08-2021 10-10-2022 Chronic Substance-related disorders (1 source) Stimulant abuse; Translations: [Other stimulant use, unspecified, uncomplicated] Onset: 08-08-2021 08-08-2021 Episodic Superficial injury; contusion (6 sources) Abrasion of cornea of right eye; Translations: [Injury of conjunctiva and corneal abrasion without foreign body, right eye, initial encounter] Onset: 09-30-2024 09-24-2024 Episodic Unclassified (1 source) Other specified postprocedural states; Translations: [OTHER SPECIFIED POSTPROCEDURAL STATES] Onset: 12-08-2017 Urinary tract infections (10 sources) Urinary tract infection, site not specified; Translations: [Acute cystitis] Onset: 12-08-2017 Episodic Past or Other Problems Problem Classification Problem Date Documented Da te Episodic/Chronic Abdominal pain (6 sources) Pain in pelvis; Translations: [Pelvic and [...] Onset: 10-10-2022 Episodic Other upper respiratory infections (4 sources) Viral upper respiratory tract infection; Translations: [...] Reference Range Facility Emergency Department Summary on 01-30-2025 Emergency Department Summary [facility] Medical Records Department [address] [place] [address] Emergency Department Summary 01/30/25 MR#: [id number] Acct: [id number] Name: PRANEETH PORRAS Rep #: [id number] : 1990 34 From: Jerod Davis DO PCP: Care Physician,No Primary Status:DEP ER Location: ED HPI History of Present Illness Chief Complaint: Lower Extremity Injury Informant: patient and friend Narrative Narrative: Patient is a 34-year-old female with past medical history of schizophrenia and previous pulmonary embolus but no reported anticoagulation. She states roughly 10 hours ago she went to kick something. She states she was wearing a steel toed boot but missed the steel toe section of the boot and that she struck the top of her left foot. She states she had immediate pain after doing so. She states she gave the area time to resolve and took uaie-utw-bydoruh medication but there has been no symptom improvement and with concern for fracture she presents for evaluation. [facility] Medical History (Updated 01/31/25 @ 01:[address] Jerod Davis DO) Presence of IVC filter Pulmonary embolism Paranoid schizophrenia Home Medications ???Medication ???Instructions ???Recorded ???Last Taken ???Type lurasidone 20 mg tablet 20 mg PO QPM 09/24/24 Unknown Hist ory doxycycline monohydrate 100 mg 100 mg PO BID #14 CAPSULES 5 Unknown Rx capsule ibuprofen 600 mg tablet 600 mg PO 4X/DAY PRN pain #40 tabs 01/30/25 Unknown Rx oxycodone-acetaminophe n 5 mg-325 1 tab PO Q6H PRN pain 3 days #12 0 01/30/25 Unknown Rx mg tablet (Percocet) tabs Allergy/AdvReac Type Severity Reaction Status Date / Time quetiapine (From Seroquel) Allergy Chest Verified 01/30/25 22:05 tightness Surgical History (Updated 01/30/25 @ 23:00 by Cesar Don) History of lumpectomy Social History household members: family current occupational status: employed Smoking Status: Current every day smoker tobacco type: e-cigarettes ROS ROS ED Constitutional Constitutional ED: Denies chills or fever(s) ENT ENT ED: Denies sore throat Cardiovascular Cardiovascular: Denies chest pain Respiratory/Chest Respiratory/Chest: Denies cough or dyspnea Gastrointestinal Gastrointestinal: Denies abdominal pain, diarrhea, nausea or vomiting Musculoskeletal Musculoskeletal: Reports other Details: Positive left foot pain Integumentary Reports other Details: Negative laceration abrasion or ecchymosis of the left foot ; Denies Abrasions or rash Neurologic Neurologic: Denies headache(s) Hematologic/Lymphatic Hematologic/Lymphatic: Denies easy bleeding or easy bruising EXAM Physical Exam Const Vital Signs: 01/30/25 22:04 01/31/25 00:07 Temperature 97.8 F 97.6 F L Temperature Source Oral Pulse Rate 101 H 95 Respiratory Rate 18 18 Blood Pressure 162/96 H 130/82 H Blood Pressure Mean 118 98 Pulse Ox 100 100 Oxygen Delivery Method Room Air Positive well nourished and well developed General Appearance ED: well developed; Negative for pallor HEENT HEENT Narrative: Normocephalic atraumatic Eyes PERRL and EOMs intact bilaterally General Eye ED: Negative for scleral icterus Neck supple Resp normal respiratory effort and clear to auscultation bilaterally Cardio regular rate and regular rhythm Extremity Extremity Narrative: Left lower extremity is neurovascularly intact There is mild soft tissue swelling to the midportion of the dorsal aspect of the left foot. No significant ecchymosis or abrasions. There is pain with palpation near the proximal 3rd-4th metatarsal and middle to lateral cuneiform bones. No obvious bony deformity or joint effusion Achilles tendon is intact and ankle ligaments are stable No subungual hematoma noted Remainder of the exam is normal Neuro oriented x3, CN's II-XII intact bilaterally and no sensory deficits noted Sensorium / Orientation: alert Psych mental status grossly normal Skin no rashes or lesions noted and no wounds Skin Narrative: Mild soft tissue swelling to the dorsal aspect of the left foot as documented above without overlying ecchymosis abrasions or laceration Capillary refill remains less than 3 seconds General Skin Exam: Negative for jaundice or pallor MDM MDM MDM Narrative Medical decision making narrative: Patient arrived to the ER hypertensive but otherwise with stable vitals. She reported direct trauma to the left foot. There is concern for fracture versus contusion versus dislocation. Secondary to this a x-ray was obtained. X-ray revealed no signs of bony trauma such as fracture or dislocation indicating patient's symptoms and pain are consistent with contusion. As she is closed and ne (more content not included)... Normal [facility] Foot min 3 Viewson Foot min 3 Views [facility] Imaging Services [address] [place] [address] Foot min 3 Views MR#: [id number] Acct: [id number] Name: PRANEETH PORRAS Rep #: [id number] : 1990 F 34 From: George alexander MD PCP: Care Physician,No Primary Status: [facility] ER Study: Foot min 3 Views Date of Exam: 01/30/25 Exam# [id number] Ordering Dr: Jerod Davis DO PROCEDURE: FOOT MIN 3 VIEWS 01/30/2025 REASON FOR EXAM: PAIN TECHNIQUE: Procedure Code: RADFO Modality: DX Procedure: FOOT MIN 3 VIEWS Laterality: LEFT. COMPARISON: NONE. FINDINGS: Normal talus, calcaneus, and tarsal bones. Normal visualized subtalar, talonavicular, calcaneocuboid, tarsal and tarsometatarsal articulations. Normal metatarsi. Normal metatarsophalangeal joint of the great toe. Normal tibial and fibular sesamoid bones. Normal interphalangeal joint of the great toe. Normal phalanges of the great toe. Normal second through fifth metatarsophalangeal joints. Normal interphalangeal joints of the lesser toes. Normal phalanges of the lesser toes. RAD/Foot min 3 Views IMPRESSION: No evidence for acute abnormality. Reading Location: [place] [address] CC: Jerod Davis DO; No Primary Care Physician Needle Grader: Signed Normal [facility] M8200.2203on 12-24-2024 M8200.2203 Chlamydia Trachomati s PCR NEGATIVE for Chlamydia trachomatis N. gonorrhoeae PCR Negative for N. gonorrhoeae Normal [facility] Comment on above: Performed By: #### L 400.7600, M8200.2203 ####[facility] [id number] [facility] [place], [address] ,Urineon 12-24-2024 Beta HCG ( test) Ql (U) Negative [facility] Comment on above: Order Comment: Result Comment: Very dilute urine specimens, as indicated by a low specific gravity, may not contain sales representative leather goods levels of hCG. If is still suspected, a first morning urine specimen should be collected 48 hours later and tested. Performed By: #### L 400.7600, M8200.2203 ####[facility] [id number] [facility]. [place], [place], [address] Emergency Department Summary on 12-23-2024 Emergency Department Summary [facility] Medical Records Department [address] [place] [address] Emergency Department Summary 12/23/24 MR#: [id number] Acct: [id number] Name: PRANEETH PORRAS Rep #: [id number] : 1990 34 From: Kyle Fan MD [...] past, she states this seems very similar. [facility] Medical History Pulmonary embolism Pulmonary embolism [...] 3-5 Days if not improving Print Language: Botswanan Disposition Disposition: Home, Self Care Discharge Date/Time: 12/24/24 00:08 What to do if you have Problems For any increased pain, shortness of breath, bleeding, nausea or vomiting, chest p (more content not included)... Normal [facility] Urine testOrdered By: Kyle Fan on 12-23-2024 HCG ( test) Ql (U) Negative [facility] Comment on above: Very dilute urine sp ecimens, as indicated by a low specificgravity, may not contain sales representative leather goods levels of hCG. If is still suspected, a first morning urinespecimen should be collected 48 hours later and tested. Emergency Department Summary on 09-24-2024 Emergency Department Summary [facility] Medical Records Department [address] [place] [address] Emergency Department Summary 09/24/24 MR#: [id number] Acct: [id number] Name: PRANEETH PORRAS Rep #: [id number] : 1990 34 From: Jerod Davis DO [...] secondary to this comes in for evaluation. [facility] Medical History Pulmonary embolism Pulmonary embolism [...] Care Prov (more content not included)... Normal [facility] Adalid 09-08-2024 CNOV Office Visit (UCWSTR ) PRANEETH PORRAS ([id number]) 1990 F DEF Date Time Provider Department 09/08/24 1:30 PM MILLER KEYES [facility] During your visit today, we recorded the following information about you: Temperature Pulse Respiration Blood pressure 98.8 degrees 80/minute 18/minute 96/61 Weight 57.5 kg Miller Keyes PA 09/08/2024 1:39 PM Signed [facility] Subjective Praneeth Porras is [...] for the (more content not included)... Normal [facility] Emergency Department Summary on 05-20-2024 Emergency Department Summary [facility] Medical Records Department [address] [place] [address] Emergency Department Summary 05/20/24 MR#: [id number] Acct: [id number] Name: PRANEETH PORRAS Rep #: [id number] : 1990 33 From: Fran Nice MD [...] female history of prior pulmonary emboli of Kristel filter and paranoid schizophrenia. 2 of her [...] S2 normal (more content not included)... Normal [facility] Abdomen/Pelvis W IV Cont ONL Yon 04-15-2024 Abdomen/Pelvis W IV Cont ONLY [facility] Imaging Services [address] [place] [address] Abdomen/Pelvis W IV Cont ONLY MR#: [id number] Acct: [id number] Name: PRANEETH PORRAS Rep #: [id number] : 1990 F 33 From: Rad Shine DO PCP: Care Physician,No Primary Status: REG ER Study: Abdomen/Pelvis W IV Cont ONLY Date of Exam: Exam# [id number] Ordering Dr: Daniel Ch DO [id number] STUDY: CT ABDOMEN AND PELVIS WITH CONTRAST [...] 16:55 EST Reading Location ID and State: [facility] / [place] Tel [phone], Service support , CC: Dr. Daniel Ch DO; No Primary Care Physician Needle Grader: Signed Normal [facility] CBC W/Diff, Automatedon 03-29 Absolute Lymph 1.59 X10 3/uL Normal 0.83-4.51 [facility] Comment on above: Performed By: #### L 500.4050, L501.2450, L100.0100 #### [facility] [address] [place], [address] Absolute Neut 3.7 X10 3/uL Normal 2.0-7.7 [facility] Comment on above: Performed By: #### L 500.4050, L501.2450, L100.0100 #### [facility] [address] [place], [address] Basophils/100 WBC (Bld) 1.2 % High 0-1 [facility] Comment on above: Performed By: #### L 500.4050, L501.2450, L100.0100 #### [facility] [address] [place], [address] Eosinophils/100 WBC (Bld) 2.0 % Normal 0-5 [facility] Comment on above: Performed By: #### L 500.4050, L501.2450, L100.0100 #### [facility] [address] [place], [address] Erythrocyte distribution width (RBC) [Ratio] 13.3 % Normal 11.6-14.6 [facility] Comment on above: Performed By: #### L 500.4050, L501.2450, L100.0100 #### [facility] [address] [place], [address] Hematocrit (Bld) [Volume fraction] 36.5 % Low 37-47 [facility] Comment on above: Performed By: #### L 500.4050, L501.2450, L100.0100 #### [facility] [address] [place], [address] Hemoglobin (Bld) [Mass/Vol] 12.0 g/dL Normal 12.0-15.0 [facility] Comment on above: Performed By: #### L 500.4050, L501.2450, L100.0100 #### [facility] [address] [place], [address] IG% 0.300 Normal 0.0-0.9 [facility] Comment on above: Result Comment: IG% - Immature Granulocytes (promyelocytes, myelocytes and metamyelocytes) > 1% indicates that a LEFT SHIFT is Present. Performed By: #### L 500.4050, L501.2450, L100.0100 #### [facility] [address] [place], [address] Lymphocytes/100 WBC (Bld) 26.5 % Normal 19-41 [facility] Comment on above: Performed By: #### L 500.4050, L501.2450, L100.0100 #### [facility] [address] [place], [address] MCH (RBC) [Entitic mass] 30.8 pg Normal 27.0-32.0 [facility] Comment on above: Performed By: #### L 500.4050, L501.2450, L100.0100 #### [facility] [address] [place], [address] MCHC (RBC) [Mass/Vol] 32.9 g/dL Normal 32-36 [facility] Comment on above: Performed By: #### L 500.4050, L501.2450, L100.0100 #### [facility] [address] [place], [address] MCV (RBC) [Entitic vol] 93.6 fL Normal 81-99 [facility] Comment on above: Performed By: #### L 500.4050, L501.2450, L100.0100 #### [facility] [address] [place], [address] Monocytes/100 WBC (Bld) 8.2 % Normal 0-10 [facility] Comment on above: Performed By: #### L 500.4050, L501.2450, L100.0100 #### [facility] [address] [place], [address] Neutrophils/100 WBC (Bld) 61.8 % Normal 47-70 [facility] Comment on above: Performed By: #### L 500.4050, L501.2450, L100.0100 #### [facility] [address] [place], [address] Nucleated RBC (Bld) [#/Vol] 0 10*3/uL Normal 0-5 [facility] Comment on above: Performed By: #### L 500.4050, L501.2450, L100.0100 #### [facility] [address] [place], [address] Platelet mean volume (Bld) [Entitic vol] 10.9 fL Normal 6.2-12.0 [facility] Comment on above: Performed By: #### L 500.4050, L501.2450, L100.0100 #### [facility] [address] [place], [address] Platelets (Bld) [#/Vol] 240 10*3/uL Normal 150-450 [facility] Comment on above: Performed By: #### L 500.4050, L501.2450, L100.0100 #### [facility] [address] [place], [address] RBC (Bld) [#/Vol] 3.90 10*6/uL Low 4.2-5.4 [facility] Comment on above: Performed By: #### L 500.4050, L501.2450, L100.0100 #### [facility] [address] [place], [address] RDW SD 45.3 fl High 35.1-43.9 [facility] Comment on above: Performed By: #### L 500.4050, L501.2450, L100.0100 #### [facility] [address] [place], [address] WBC (Bld) [#/Vol] 6.0 10*3/uL Normal 4.4-11.0 [facility] Comment on above: Performed By: #### L 500.4050, L501.2450, L100.0100 #### [facility] [address] [place], [address] Comprehensive Metabolic Prof ilon 04-15-2024 Albumin [Mass/Vol] 3.6 g/dL Normal 3.2-5.0 [facility] Comment on above: Performed By: #### L 500.4050, L501.2450, L100.0100 #### [facility] [address] [place], [address] Albumin/Globulin [Mass ratio] 1.1 {ratio} Normal 0.9-2.4 [facility] Comment on above: Performed By: #### L 500.4050, L501.2450, L100.0100 #### [facility] [address] [place], [address] ALK P 49 U/L Normal 45-117 [facility] Comment on above: Performed By: #### L 500.4050, L501.2450, L100.0100 #### [facility] [address] [place], [address] ALT [Catalytic activity/Vol] 24 U/L Normal 13-56 [facility] Comment on above: Performed By: #### L 500.4050, L501.2450, L100.0100 #### [facility] [address] [place], [address] AST [Catalytic activity/Vol] 18 U/L Normal 15-37 [facility] Comment on above: Performed By: #### L 500.4050, L501.2450, L100.0100 #### [facility] [address] [place], [address] Bilirubin [Mass/Vol] 0.20 mg/dL Normal 0.20-1.00 [facility] Comment on above: Result Comment: For patients on eltrombopag therapy, use of Dimension [place] TBIL is not recommended. Performed By: #### L 500.4050, L501.2450, L100.0100 #### [facility] [address] [place], [address] BUN/CRE 16.8 RATIO Normal 10-20 [facility] Comment on above: Performed By: #### L 500.4050, L501.2450, L100.0100 #### [facility] [address] [place], [address] CA,Total 8.5 mg/dL Normal 8.5-10.1 [facility] Comment on above: Performed By: #### L 500.4050, L501.2450, L100.0100 #### [facility] [address] [place], [address] Chloride [Moles/Vol] 108 mmol/L High 98-107 [facility] Comment on above: Performed By: #### L 500.4050, L501.2450, L100.0100 #### [facility] [address] [place], [address] CO2 [Moles/Vol] 27.0 mmol/L Normal 21.0-32.0 [facility] Comment on above: Performed By: #### L 500.4050, L501.2450, L100.0100 #### [facility] [address] [place], [address] Creatinine [Mass/Vol] 0.83 mg/dL Normal 0.55-1.02 [facility] Comment on above: Result Comment: The validity of the calculated GFR GFRAA in patients over 70 years has not been determined. Clinical correlation is essential. Performed By: #### L 500.4050, L501.2450, L100.0100 #### [facility] [address] [place], [address] ECRCL 80.49 ml/min Normal [facility] Comment on above: Performed By: #### L 500.4050, L501.2450, L100.0100 #### [facility] [address] [place], [address] EST GFR - AA 102 mL/min Normal >60 [facility] Comment on above: Result Comment: Afri can Marshallese GFR Calc Performed By: #### L 500.4050, L501.2450, L100.0100 #### [facility] [address] [place], [address] GAP 6 Normal 5-15 [facility] Comment on above: Performed By: #### L 500.4050, L501.2450, L100.0100 #### [facility] [address] [place], [address] GFR/1.73 sq M.predicted among non-blacks MDRD (S/P/Bld) [Vol rate/Area] 84 mL/min/{1.73_m2} Normal >60 [facility] Comment on above: Result Comment: Non- GFR Calc Performed By: #### L 500.4050, L501.2450, L100.0100 #### [facility] [address] [place], [address] Globulin (S) [Mass/Vol] 3.3 g/dL Normal 2.2-4.2 [facility] Comment on above: Performed By: #### L 500.4050, L501.2450, L100.0100 #### [facility] [address] [place], [address] Glucose [Mass/Vol] 105 mg/dL Normal 74-106 [facility] Comment on above: Result Comment: Fast ing Glucose result from 100 to 125 mg/dL suggests IMPAIRED HOMEOSTASIS per A.D.A. criteria. Performed By: #### L 500.4050, L501.2450, L100.0100 #### [facility] [address] [place], [address] Potassium [Moles/Vol] 3.2 mmol/L Low 3.5-5.1 [facility] Comment on above: Performed By: #### L 500.4050, L501.2450, L100.0100 #### [facility] [address] [place], [address] Sodium [Moles/Vol] 141 mmol/L Normal 136-145 [facility] Comment on above: Performed By: #### L 500.4050, L501.2450, L100.0100 #### [facility] [address] [place], [address] T PROT 6.9 g/dL Normal 6.4-8.2 [facility] Comment on above: Performed By: #### L 500.4050, L501.2450, L100.0100 #### [facility] [address] [place], [address] Urea nitrogen [Mass/Vol] 14 mg/dL Normal 7-18 [facility] Comment on above: Performed By: #### L 500.4050, L501.2450, L100.0100 #### [facility] [address] [place], [address] Emergency Department Summary on 04-15-2024 Emergency Department Summary [facility] Medical Records Department [address] [place] [address] Emergency Department Summary 04/15/24 MR#: [id number] Acct: [id number] Name: PRANEETH PORRAS Rep #: [id number] : 1990 33 From: Daniel Ch DO [...] currently. Patient denies any fevers or chills [facility] Medical History Pulmonary embolism Pulmonary embolism [...] follow commands knew that she was at [facility] years 2023 Skin: Warm, dry, intact [...] She was advised to follow-up with her BLINTZE ROLLER in 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 She will be given prescription for Bentyl and Zofran. She was advised to return with worsening symptoms or other concerns. All question concerns answered she was discharged home in stable condition. Lab Data Labs: Laboratory (more content not included)... Normal [facility] Lipaseon 04-15-2024 Lipase [Catalytic activity/Vol] 31 U/L Normal 13-75 [facility] Comment on above: Result Comment: Serafin traylor note: LIPASE revised reference range effective 22. New Lipase methodology. Expected to produce lower values than the previous assay method. NEW Reference Range: 13 - 75 U/L Performed By: #### L 500.4050, L501.2450, L100.0100 #### [facility] [address] [place], [address] ,Urineon 04-15-2024 Beta HCG ( test) Ql (U) Negative Normal [facility] Comment on above: Order Comment: CLEAN CATCH Result Comment: Very dilute urine specimens, as indicated by a low specific gravity, may not contain sales representative leather goods levels of hCG. If is still suspected, a first morning urine specimen should be collected 48 hours later and tested. Performed By: #### L 400.7600, L400.0001 #### [facility] [address] [place], [address] Urinalysis, Completeon 04-15 BACTERIA RARE Normal None Seen [facility] Comment on above: Order Comment: CLEAN CATCH Performed By: #### L 400.7600, L400.0001 #### [facility] [address] [place], [address] Mucus Ql (Urine sed) 3+ /hpf Normal [facility] Comment on above: Order Comment: CLEAN CATCH Performed By: #### L 400.7600, L400.0001 #### [facility] [address] [place], [address] EPI,SQUAMOUS 0-5 SEEN Normal 5-10 [facility] Comment on above: Order Comment: CLEAN CATCH Performed By: #### L 400.7600, L400.0001 #### [facility] [address] [place], [address] RBC 0 SEEN Normal 0-5 [facility] Comment on above: Order Comment: CLEAN CATCH Performed By: #### L 400.7600, L400.0001 #### [facility] [address] [place], [address] WBC 0 SEEN Normal 0-5 [facility] Comment on above: Order Comment: CLEAN CATCH Performed By: #### L 400.7600, L400.0001 #### [facility] [address] [place], [address] CNPChelle 11-03-2023 APPLE Telephone ([facility]) COSMEPRANEETH ([id number]) 1990 F DEF Date Time Provider Department 11/03/23 ELISE LOMELI [facility] During your visit today, we [...] Status:Closed by SEDRICK COX on 11/03/23 Normal [facility] Bacteria Ur Culton Bacteria identified Cx Nom (U) ORGANISM ID: 1 10,000 -<50,000 CFU/ml Normal urogenital blanca Normal [facility] Comment on above: Performed By: #### 6 30-4 #### [facility] CLIA [id number] [address] [place] [address] [place] CNOVon 11-02-2023 CNOV [facility] PRANEETH PORRAS ([id number]) 1990 F DEF Date Time Provider Department 11/02/23 2:45 PM MILLER KEYES [facility] During your visit today, we recorded the following information about you: Temperature Pulse Respiration Blood pressure 97.7 degrees 76/minute 16/minute 122/72 Weight 55.6 kg Miller Keyes PA 11/02/2023 3:05 PM Signed This note was created using Reamazeriter. Subjective Praneeth Porras is a 33 year [...] ER evalua (more content not included)... Normal [facility] STREP A MOLECULAR (POC)on Procedural Control Valid [facility] Strep A (POCT) Negative Negative [facility] UA DIP, URINE (POC)on 2023 BILIRUBIN UA (POCT) Negative Negative [facility] CLARITY UA (POCT) Clear [facility] COLOR UA (POCT) Yellow [facility] GLUCOSE UA (POCT) Negative Negative mg/dL [facility] Hemoglobin Ql (U) Negative Negative [facility] Interpretation and review of laboratory results Abnormal [facility] KETONE UA (POCT) Trace Negative mg/dL [facility] LEUKOCYTES UA (POCT) Negative Negative [facility] NITRITE UA (POCT) Negative Negative [facility] PH UA (POCT) 6.0 4.5 - 8.0 [facility] Protein Ql (U) Trace Abnormal Negative mg/dL [facility] SPECIFIC GRAVITY UA (POCT) 1.025 1.005 - 1.030 [facility] UROBILINOGEN UA (POCT) 0.2 Adela l E.U./dL [facility] Location:[address], [place], [place], [address] [place] [address] POINT OF CARE [facility] CTA HEAD AND NECKon 01-25-20 23 CTA HEAD AND NECK CTA HEAD AND [...] basilar tip are patent. SCA patent bilaterally. MACHINE SHOP APPRENTICE patent bilaterally. There is takeoff of the MACHINE SHOP APPRENTICE on the left. Distal MACHINE SHOP APPRENTICE distributions are symmetric. No large vessel occlusion. DEVELOPMENTAL ANOMALIES: takeoff left MACHINE SHOP APPRENTICE. Hypoplastic A1 segment right LILIAM. OTHER: No [...] C/o right eye pain. 20g RAC 150mL [id number] given by Pili Technical problem with scanner after first bolus Normal [facility] HCG URINE (PREG)on 3 HCG ( test) Ql (U) Negative Normal [facility] Comment on above: Performed By: #### 4 [id number], [id number] #### TERA MATHEWS (2012) [facility] [address] [place] [address] BASIC METABOLIC PANELon 12-28 Anion gap [Moles/Vol] 14 mmol/L High 8-12 [facility] [employer] [facility] Comment on above: Performed By: #### 4 [id number], [id number] #### TERA MATHEWS (2012) [facility] [address] [place] [address] Calcium [Mass/Vol] 9.7 mg/dL Normal 8.4-10.4 [facility] Comment on above: Performed By: #### Norah [id number], [id number] #### TERA MATHEWS (2012) [facility] [address] [place] [address] Chloride [Moles/Vol] 104 mmol/L Normal 96-109 [facility] [employer] Comment on above: Performed By: #### 4 [id number], [id number] #### TERA MATHEWS (2012) [facility] [address] [place] [address] CO2 [Moles/Vol] 21 mmol/L Low 22-30 [facility] [employer] [facility] Comment on above: Performed By: #### 4 [id number], [id number] #### TERA MATHEWS (2012) [facility] [address] [place] [address] Creatinine [Mass/Vol] 0.76 mg/dL Normal 0.52-1.04 [facility] [employer] [facility] Comment on above: Performed By: #### 4 [id number], [id number] #### TERA MATHEWS (2012) [facility] [address] [place] [address] GLOMERULAR FILTRATION RATE ML/MIN/1.73 SQ M.PREDICTED >90.0 Normal >=60.0 [facility] [employer] Comment on above: Result Comment: eGFR calculation [...] Kidney Int Suppl.2013;3:1-150 Performed By: #### 4 [id number], [id number] #### TERA MATHEWS (2012) [facility] [address] [place] [address] Glucose [Mass/Vol] 100 mg/dL Normal 65-100 [facility] Comment on above: Performed By: #### 4 [id number], [id number] #### TERA MATHEWS (2012) [facility] [address] [place] [address] Potassium [Moles/Vol] 3.0 mmol/L Low 3.6-5.1 [facility] [place] Comment on above: Performed By: #### 4 [id number], [id number] #### TERA MATHEWS (2012) [facility] [address] [place] [address] Sodium [Moles/Vol] 139 mmol/L Normal 135-147 [facility] Comment on above: Performed By: #### 4 [id number], [id number] #### TERA MATHEWS (2012) [facility] [address] [place] [address] Urea nitrogen [Mass/Vol] 14 mg/dL Normal 8-26 [facility] Comment on above: Performed By: #### 4 [id number], [id number] #### TERA MATHEWS (2012) [facility] [address] [place] [address] CBC AND DIFFERENTIALon 01-23 ABSOLUTE BASOPHIL 0.1 x10*3/uL Normal 0.0-0.1 [facility] Comment on above: Performed By: #### 4 [id number] #### TERA MATHEWS (2012) [facility] [address] [place] [address] ABSOLUTE EOSINOPHIL 0.0 x10*3/uL Low 0.1-0.3 [facility] Comment on above: Performed By: #### 4 [id number] #### TERA MATHEWS (2012) [facility] [address] [place] [address] ABSOLUTE IMMATURE GRANULOCYTES 0.0 x10*3/uL Normal 0.0-0.1 [facility] Comment on above: Performed By: #### 4 [id number] #### TERA MATHEWS (2012) [facility] [address] [place] [address] ABSOLUTE LYMPH 1.7 x10*3/uL Normal 1.2-3.3 [facility] Comment on above: Performed By: #### 4 [id number] #### TERA MATHEWS (2012) [facility] [address] [place] [address] ABSOLUTE MONO 0.4 x10*3/uL Normal 0.2-0.6 [facility] Comment on above: Performed By: #### 4 [id number] #### TERA MATHEWS (2012) [facility] [address] [place] [address] ABSOLUTE NEUTROPHIL 4.3 x10*3/uL Normal 2.4-6.6 [facility] Comment on above: Performed By: #### 4 [id number] #### TERA MATHEWS (2012) [facility] [address] [place] [address] Basophils/100 WBC (Bld) 0.8 % Normal [facility] Comment on above: Performed By: #### 4 [id number] #### TERA MATHEWS (2012) [facility] [address] [place] [address] Eosinophils/100 WBC (Bld) 0.6 % Normal [facility] Comment on above: Performed By: #### 4 [id number] #### TERA MATHEWS (2012) [facility] [address] [place] [address] Erythrocyte distribution width (RBC) [Ratio] 13.3 % Normal 11.5-14.5 [facility] Comment on above: Performed By: #### 4 [id number] #### TERA MATHEWS (2012) [facility] [address] [place] [address] Hematocrit (Bld) [Volume fraction] 39.0 % Normal 33.6-46.8 [facility] Comment on above: Performed By: #### 4 [id number] #### TERA MATHEWS (2012) [facility] [address] [place] [address] Hemoglobin (Bld) [Mass/Vol] 13.3 g/dL Normal 11.7-15.8 [facility] Comment on above: Performed By: #### 4 [id number] #### TERA MATHEWS (2012) [facility] [address] [place] [address] Immature granulocytes/100 WBC (Bld) 0.2 % Normal [facility] Comment on above: Performed By: #### 4 [id number] #### TERA MATHEWS (2012) [facility] [address] [place] [address] Lymphocytes/100 WBC (Bld) 26.6 % Normal [facility] Comment on above: Performed By: #### 4 [id number] #### TERA MATHEWS (2012) [facility] [address] [place] [address] MCH (RBC) [Entitic mass] 30.8 pg Normal 27.5-32.3 [facility] Comment on above: Performed By: #### 4 [id number] #### TERA MATHEWS (2012) [facility] [address] [place] [address] MCHC (RBC) [Mass/Vol] 34.1 g/dL Normal 30.7-35.5 [facility] [place] Comment on above: Performed By: #### 4 [id number] #### TERA MATHEWS (2012) [facility] [address] [place] [address] MCV (RBC) [Entitic vol] 90.3 fL Normal 80.2-99 [facility] Comment on above: Performed By: #### 4 [id number] #### TERA MATHEWS (2012) [facility] [address] [place] [address] Monocytes/100 WBC (Bld) 5.7 % Normal [facility] Comment on above: Performed By: #### 4 [id number] #### TERA MATHEWS (2012) [facility] [address] [place] [address] Neutrophils/100 WBC (Bld) 66.1 % Normal [facility] Comment on above: Performed By: #### 4 [id number] #### TERA MATHEWS (2012) [facility] [address] [place] [address] PLATELET COUNT 233 x10*3/uL Normal 150-400 [facility] Comment on above: Performed By: #### 4 [id number] #### TERA MATHEWS (2012) [facility] [address] [place] [address] RED BLOOD CELL COUNT 4.32 x10*6/uL Normal 3.60-5.20 [facility] Comment on above: Performed By: #### 4 [id number] #### TERA MATHEWS (2012) [facility] [address] [place] [address] WHITE BLOOD CELLS 6.5 x10*3/uL Normal 4.3-10.3 [facility] Comment on above: Performed By: #### 4 [id number] #### TERA MATHEWS (2012) [facility] [address] [employer] [place] [address] CBC AND DIFFERENTIALon 11-23 ABSOLUTE BASOPHIL 0.1 x10*3/uL Normal 0.0-0.1 [facility] Comment on above: Performed By: #### 4 [id number], [id number] #### TERA MATHEWS (2012) [facility] [address] [place] [address] ABSOLUTE EOSINOPHIL 0.2 x10*3/uL Normal 0.1-0.3 [facility] Comment on above: Performed By: #### 4 [id number], [id number] #### TERA MATHEWS (2012) [facility] [address] [place] [address] ABSOLUTE IMMATURE GRANULOCYTES 0.0 x10*3/uL Normal 0.0-0.1 [facility] Comment on above: Performed By: #### 4 [id number], [id number] #### TERA MATHEWS (2012) [facility] [address] [place] [address] ABSOLUTE LYMPH 2.5 x10*3/uL Normal 1.2-3.3 [facility] Comment on above: Performed By: #### 4 [id number], [id number] #### TERA MATHEWS (2012) [facility] [address] [place] [address] ABSOLUTE MONO 0.4 x10*3/uL Normal 0.2-0.6 [facility] Comment on above: Performed By: #### 4 [id number], [id number] #### TERA MATHEWS (2012) [facility] [address] [place] [address] ABSOLUTE NEUTROPHIL 3.1 x10*3/uL Normal 2.4-6.6 [facility] [place] Comment on above: Performed By: #### 4 [id number], [id number] #### TERA MATHEWS (2012) [facility] [address] [employer] [place] [address] Basophils/100 WBC (Bld) 1.0 % Normal [facility] Comment on above: Performed By: #### 4 [id number], [id number] #### TERA MATHEWS (2012) [facility] [address] [employer] [place] [address] Eosinophils/100 WBC (Bld) 3.3 % Normal [facility] Comment on above: Performed By: #### 4 [id number], [id number] #### TERA MATHEWS (2012) [facility] [address] [employer] [place] [address] Erythrocyte distribution width (RBC) [Ratio] 12.8 % Normal 11.5-14.5 [facility] Comment on above: Performed By: #### 4 [id number], [id number] #### TERA MATHEWS (2012) [facility] [address] [place] [address] Hematocrit (Bld) [Volume fraction] 40.2 % Normal 33.6-46.8 [facility] Comment on above: Performed By: #### 4 [id number], [id number] #### TERA MATHEWS (2012) [facility] [address] [place] [address] Hemoglobin (Bld) [Mass/Vol] 13.4 g/dL Normal 11.7-15.8 [facility] Comment on above: Performed By: #### 4 [id number], [id number] #### TERA MATHEWS (2012) [facility] [address] [place] [address] Immature granulocytes/100 WBC (Bld) 0.0 % Normal [facility] Comment on above: Performed By: #### 4 [id number], [id number] #### TERA MATHEWS (2012) [facility] [address] [place] [address] Lymphocytes/100 WBC (Bld) 40.0 % Normal [facility] Comment on above: Performed By: #### 4 [id number], [id number] #### TERA MATHEWS (2012) [facility] [address] [place] [address] MCH (RBC) [Entitic mass] 31.1 pg Normal 27.5-32.3 [facility] Comment on above: Performed By: #### 4 [id number], [id number] #### TERA MATHEWS (2012) [facility] [address] [place] [address] MCHC (RBC) [Mass/Vol] 33.3 g/dL Normal 30.7-35.5 [facility] Comment on above: Performed By: #### 4 [id number], [id number] #### TERA MATHEWS (2012) [facility] [address] [place] [address] MCV (RBC) [Entitic vol] 93.3 fL Normal 80.2-99 [facility] Comment on above: Performed By: #### 4 [id number], [id number] #### TERA MATHEWS (2012) [facility] [address] [place] [address] Monocytes/100 WBC (Bld) 6.9 % Normal [facility] Comment on above: Performed By: #### 4 [id number], [id number] #### TERA MATHEWS (2012) [facility] [address] [place] [address] Neutrophils/100 WBC (Bld) 48.8 % Normal [facility] Comment on above: Performed By: #### 4 [id number], [id number] #### TERA MATHEWS (2012) [facility] [address] [place] [address] PLATELET COUNT 264 x10*3/uL Normal 150-400 [facility] Comment on above: Performed By: #### 4 [id number], [id number] #### TERA MATHEWS (2012) [facility] [address] [place] [address] RED BLOOD CELL COUNT 4.31 x10*6/uL Normal 3.60-5.20 [facility] Comment on above: Performed By: #### 4 [id number], [id number] #### TERA MATHEWS (2012) [facility] [address] [place] [address] WHITE BLOOD CELLS 6.3 x10*3/uL Normal 4.3-10.3 [facility] Comment on above: Performed By: #### 4 [id number], [id number] #### TERA MATHEWS (2012) [facility] [address] [place] [address] CBC with DifferentialOrdered By: Background Lab on 11-23-2022 Absolute Immature Granulocytes 0.0 [facility] Age [Time] 93.3 fL 80.2 - 99 fL [facility] Age [Time] 31.1 pg 27.5 - 32.3 pg [facility] Age [Time] 33.3 g/dL 30.7 - 35.5 g/dL [facility] B. burgdorferi IgM IB Ql (CSF) 40.0 % [facility] Basophils (Bld) [#/Vol] 0.1 10*3/uL [facility] Basophils/100 WBC (Body fld) 1.0 % [facility] Eosinophils (Bld) [#/Vol] 2.5 10*3/uL [facility] Eosinophils (Bld) [#/Vol] 0.4 10*3/uL [facility] Eosinophils (Bld) [#/Vol] 0.2 10*3/uL [facility] Eosinophils/100 WBC (Bld) 3.3 % [facility] Erythrocyte distribution width (RBC) [Ratio] 12.8 % 11.5 - 14.5 % [facility] Hematocrit (Bld) [Volume fraction] 40.2 % 33.6 - 46.8 % [facility] Hexanoylglycine (U) [Moles/Vol] 13.4 g/dL 11.7 - 15.8 g/dL [facility] Immature granulocytes/100 WBC (Bld) 0.0 % [facility] Monocytes/100 WBC (Bld) 6.9 % [facility] Neurotensin (P) [Mass/Vol] 48.8 % [facility] Neutrophils (Bld) [#/Vol] 3.1 10*3/uL [facility] Platelets (Bld) [#/Vol] 264 10*3/uL [facility] RBC (Bld) [#/Vol] 4.31 10*6/uL [facility] WBC LM Ql (Sput) 6.[address] [facility] [place] [place] COMPREHENSIVE METABOLIC PANE Carlos 11-23-2022 Albumin [Mass/Vol] 4.6 g/dL Normal 3.5-5.0 [facility] Comment on above: Performed By: #### 4 [id number], [id number] #### TERA MATHEWS (2012) [facility] [address] [place] [address] ALK PHOS 54 U/L Normal 24-126 [facility] Comment on above: Performed By: #### 4 [id number], [id number] #### TERA MATHEWS (2012) [facility] [address] [place] [address] ALT [Catalytic activity/Vol] 17 U/L Normal 4-35 [facility] Comment on above: Performed By: #### 4 [id number], [id number] #### TERA MATHEWS (2012) [facility] [address] [place] [address] Anion gap [Moles/Vol] 8 mmol/L Normal 8-12 [facility] Comment on above: Performed By: #### 4 [id number], [id number] #### TERA MATHEWS (2012) [facility] [address] [place] [address] AST [Catalytic activity/Vol] 28 U/L Normal 3-47 [facility] Comment on above: Performed By: #### 4 [id number], [id number] #### TERA MATHEWS (2012) [facility] [address] [place] [address] Bilirubin [Mass/Vol] 0.4 mg/dL Normal 0.2-1.6 [facility] Comment on above: Performed By: #### 4 [id number], [id number] #### TERA MATHEWS (2012) [facility] [address] [place] [address] Calcium [Mass/Vol] 10.6 mg/dL High 8.4-10.4 [facility] Comment on above: Performed By: #### 4 [id number], [id number] #### TERA MATHEWS (2012) [facility] [address] [place] [address] Chloride [Moles/Vol] 103 mmol/L Normal 96-109 [facility] Comment on above: Performed By: #### 4 [id number], [id number] #### TERA MATHEWS (2012) [facility] [address] [place] [address] CO2 [Moles/Vol] 30 mmol/L Normal 22-30 [facility] Comment on above: Performed By: #### 4 [id number], [id number] #### TERA MATHEWS (2012) [facility] [address] [place] [address] Creatinine [Mass/Vol] 0.82 mg/dL Normal 0.52-1.04 [facility] Comment on above: Performed By: #### 4 [id number], [id number] #### TERA MATHEWS (2012) [facility] [address] [place] [address] GLOMERULAR FILTRATION RATE ML/MIN/1.73 SQ M.PREDICTED >90.0 Normal >=60.0 [facility] Comment on above: Result Comment: eGFR calculation [...] Kidney Int Suppl.2013;3:1-150 Performed By: #### 4 [id number], [id number] #### TERA MATHEWS (2012) [facility] [address] [place] [address] Glucose [Mass/Vol] 93 mg/dL Normal 65-100 [facility] Comment on above: Performed By: #### 4 [id number], [id number] #### TERA MATHEWS (2012) [facility] [address] [place] [address] Potassium [Moles/Vol] 3.8 mmol/L Normal 3.6-5.1 [facility] Comment on above: Performed By: #### 4 [id number], [id number] #### TERA MATHEWS (2012) [facility] [address] [place] [address] Protein [Mass/Vol] 7.9 g/dL Normal 6.3-8.2 [facility] Comment on above: Performed By: #### 4 [id number], [id number] #### TERA MATHEWS (2012) [facility] [address] [place] [address] Sodium [Moles/Vol] 141 mmol/L Normal 135-147 [facility] Comment on above: Performed By: #### 4 [id number], [id number] #### TERA MATHEWS (2012) [facility] [address] [place] [address] Urea nitrogen [Mass/Vol] 11 mg/dL Normal 8-26 [facility] Comment on above: Performed By: #### 4 [id number], [id number] #### TERA MATHEWS (2012) [facility] [address] [place] [address] CT ABDOMEN PELVIS WITH IV CO NTRASTon [...] and low back pain 20g LAC 100mL [id number] by JCochran Normal [facility] CT Abdomen and Pelvis W cont rast Ava 11-23-2022 No acute intra-abdominal inflammatory process identified. UpDown CT ABDOMEN PELVIS WI TH IV CONTRAST: [...] IMPRESSION: No acute intra-abdominal inflammatory process identified. [employer] [facility] Radiology Study observation (narrative) [facility] CT Abdomen and Pelvis W cont rast IVOrdered By: Aviva Baez on 11-23-2022 [employer] Work Phone: Comprehensive metabolic 2000 panelon 11-23-2022 Albumin (Syn fld) [Mass/Vol] 4.6 g/dL 3.5 - 5.0 g/dL [facility] Aldosterone (U) [Mass/Vol] 54 U/L 24 - 126 U/L [facility] ALT [Catalytic activity/Vol] 17 U/L 4 - 35 U/L [facility] Anion gap [Moles/Vol] 8 mmol/L 8 - 12 mmol/L [facility] AST [Catalytic activity/Vol] 28 U/L 3 - 47 U/L [facility] Bilirubin [Mass/Vol] 0.4 mg/dL 0.2 - 1 .6 mg/dL [facility] Calcium [Mass/Vol] 10.6 mg/dL High 8.4 - 10. 4 mg/dL [facility] Calcium hydrogen phosphate dihydrate crystals LM Ql (Urine sed) 11 mg/dL 8 - 26 mg/dL [facility] Chloride [Moles/Vol] 103 mmol/L 96 - 10 9 mmol/L [facility] CMV IgM IF Ql 30 mmol/L 22 - 30 mmol/L [facility] Creatinine [Mass/Vol] 0.82 mg/dL 0.52 - 1.04 mg/dL [facility] GFR/1.73 sq M.predicted MDRD (S/P/Bld) [Vol rate/Area] - PINF [facility] Comment on above: eGFR calculation bas ed [...] [Mass/Vol] 93 mg/dL 65 - 100 mg/dL [facility] Interpretation and review of laboratory results Abnormal [facility] Potassium [Moles/Vol] 3.8 mmol/L 3.6 - 5.1 mmol/L [facility] Protein [Mass/Vol] 7.9 g/dL 6.3 - 8.2 g/dL [facility] Sodium [Moles/Vol] 141 mmol/L 135 - 147 mmol/L [facility] LACTATEon 11-23-2022 Lactate [Moles/Vol] 0.7 mmol/L Normal 0.7-2.0 [facility] Comment on above: Performed By: #### 4 [id number] #### TERA MATHEWS (2012) [facility] [address] [place] [address] LIPASEon 11-23-2022 Lipase [Catalytic activity/Vol] 72 U/L Normal 23-300 [facility] Comment on above: Performed By: #### 4 [id number], [id number] #### TERA MATHEWS (2012) [facility] [address] [place] [address] Lactate - ED and Inpatient: A result >2 mmol/L will create an auto-follow up lactate order to be drawn in 2 hours.on 11-23-2022 Interpretation and review of laboratory results Normal [facility] Lactate [Moles/Vol] 0.7 mmol/L 0.7 - 2. 0 mmol/L [facility] Lipaseon 11-23-2022 Interpretation and review of laboratory results Normal [facility] Lipase [Catalytic activity/Vol] 72 U/L 23 - 300 U/L [facility] No Panel Informationon 11-23 [facility] POCT ED/FC/SURG Urine Pregon 11-23-2022 Beta HCG ( test) Ql (U) Negative [facility] Interpretation and review of laboratory results Normal [facility] Route Deliverer Acceptable YES [facility] [place] [place] URINE CHEM STRIP ONLYon 10-28 Appearance (U) Cloudy Normal [facility] Comment on above: Performed By: #### 4 [id number] #### TERA MATHEWS (2012) [facility] [address] [employer] [place] [address] BILIRUBIN UA Negative Normal Negative [facility] Comment on above: Performed By: #### 4 [id number] #### TERA MATHEWS (2012) [facility] [address] [place] [address] Color (U) Dark Yellow Normal [facility] Comment on above: Performed By: #### 4 [id number] #### TERA MATHEWS (2012) [facility] [address] [employer] ([employer] [place] [address] Glucose Ql (U) Negative Normal Negative [facility] Comment on above: Performed By: #### 4 [id number] #### TERA MATHEWS (2012) [facility] [address] [employer] [place] [address] Ketones Ql (U) Trace Abnormal Negative [facility] Comment on above: Performed By: #### 4 [id number] #### TERA MATHEWS (2012) [facility] [address] [place] [address] LEUKOESTERASE Moderate Abnormal Negative [facility] Comment on above: Performed By: #### 4 [id number] #### TERA MATHEWS (2012) [facility] [address] [place] [address] Nitrite Ql (U) Negative Normal Negative [facility] Comment on above: Performed By: #### 4 [id number] #### TERA MATHEWS (2012) [facility] [address] [place] [address] OCCULT BLD Moderate Abnormal Negative [facility] Comment on above: Performed By: #### 4 [id number] #### TERA MATHEWS (2012) [facility] [address] [place] [address] PH, URINE 5.5 Normal [facility] Comment on above: Performed By: #### 4 [id number] #### TERA MATHEWS (2012) [facility] [address] [place] [address] Protein Ql (U) Negative Normal Negative [facility] Comment on above: Performed By: #### 4 [id number] #### TERA MATHEWS (2012) [facility] [address] [employer] ([employer] [place] [address] SPECIFIC GRAVITY, URINE 1.020 Normal [facility] Comment on above: Performed By: #### 4 [id number] #### TERA MATHEWS (2012) [facility] [address] [place] [address] UROBILINOGEN UA <2.0 Normal <2.0 [facility] Comment on above: Performed By: #### 4 [id number] #### TERA MATHEWS (2012) [facility] [address] [place] [address] Urine DipOrdered By: Alexia cazares on 11-23-2022 Acetone [Mass/Vol] Trace Abnormal Negative [facility] Appearance (Body fld) Cloudy Gen [facility] Bilirubin Ql (U) Negative Negative [facility] Color (Stone) Dark Yellow [facility] G6PD (RBC) [Catalytic activity/Vol] Negative Negative [facility] Hemoglobin.gastrointes tinal (Stl) [Mass/Mass] Moderate Abnormal Negative [facility] Interpretation and review of laboratory results Abnormal [facility] Leukocyte esterase Test strip Ql (U) Moderate Abnormal Negative [facility] Nitrite Test strip (U) [Mass/Vol] Negative Negative [facility] pH (Gillian fld) 5.5 [facility] Protein (U) [Mass/Vol] Negative Negative [facility] Specific gravity (U) [Rel density] 1.020 [facility] Urobilinogen Qn (U) <2.0 NINF - 2.0 [facility] GC AND CHLAMYDIA AMPLIFIED P ROBEon 11-16-2022 GC AND CHLAMYDIA AMPLIFIED PROBE GC AMPLIFIED UT Positive Negative CHLAMYDIA, DNA PROBE Negative Negative Normal Negative [facility] Comment on above: Performed By: #### 4 [id number], [id number] #### TERA MATHEWS (2012) [facility] [address] [employer] [place] [address] TRICHOMONAS AMPLIFIED PROBEo n 11-16-2022 TRICHOMONAS AMPLIFIED PROBE Negative Normal Negative [facility] Comment on above: Performed By: #### 4 [id number], [id number] #### TERA MATHEWS (2012) [facility] [address] [employer] [place] [address] URINALYSIS WITH REFLEX CULTU REon 11-16-2022 Appearance (U) Cloudy Normal [facility] Comment on above: Performed By: #### 4 [id number] #### [address] BILIRUBIN UA Negative Normal Negative [facility] Comment on above: Performed By: #### 4 [id number] #### [place] [address] [place] Color (U) Yellow Normal [facility] Comment on above: Performed By: #### 4 [id number] #### [place] [address] [place] Glucose Ql (U) Negative Normal Negative [facility] Comment on above: Performed By: #### 4 [id number] #### [place] [address] [place] Ketones Ql (U) Negative Normal Negative [facility] Comment on above: Performed By: #### 4 [id number] #### [place] [address] [place] LEUKOESTERASE Large Abnormal Negative [facility] Comment on above: Performed By: #### 4 [id number] #### [address] [address] [place] Nitrite Ql (U) Negative Normal Negative [facility] Comment on above: Performed By: #### 4 [id number] #### [address] OCCULT BLD Moderate Abnormal Negative [facility] Comment on above: Performed By: #### 4 [id number] #### [address] PH, URINE 5.0 Normal [facility] Comment on above: Performed By: #### 4 [id number] #### [address] Protein Ql (U) Negative Normal Negative [facility] Comment on above: Performed By: #### 4 [id number] #### [address] RBC LM.HPF (Urine sed) [#/Area] 3 /[HPF] Normal <=5 [facility] Comment on above: Performed By: #### 4 [id number] #### [address] SPECIFIC GRAVITY, URINE 1.011 Normal [facility] Comment on above: Performed By: #### 4 [id number] #### [address] SQUAMOUS EPI CELLS 7 /LPF Normal [facility] Comment on above: Performed By: #### 4 [id number] #### [address] UROBILINOGEN UA Negative Normal <2.0 [facility] Comment on above: Performed By: #### 4 [id number] #### [address] WBC LM.HPF (Urine sed) [#/Area] 100 /[HPF] High <=5 [facility] Comment on above: Performed By: #### 4 [id number] #### [address] URINE CULTUREon 11-16-2022 Bacteria identified Cx Nom (U) URINE CULTURE, ROUTINE Mixed skin and fecal blanca Normal [facility] Comment on above: Order Comment: >100, 000/mL Performed By: #### 4 [id number], [id number] #### TERA MATHEWS (2013) [facility] [address] [place] [address] GC AND CHLAMYDIA AMPLIFIED P ROBEon 10-20-2022 GC AND CHLAMYDIA AMPLIFIED PROBE GC AMPLIFIED UT Negative Negative CHLAMYDIA, DNA PROBE Positive Negative Abnormal Negative [employer] Comment on above: Performed By: #### 4 [id number] #### [address] URINE CULTUREon 10-20-2022 Bacteria identified Cx [...] SMX Susc Islt R >=320 F Resistant [employer] Comment on above: Performed By: #### 4 [id number], [id number] #### TERA MATHEWS (2013) [facility] [address] [place] [address] BETA-HCG QUANTITATIVE SERUM( DO NOT USE FOR TUMOR MARKER, SEE [id number])on 09-26-2022 GONADOTROPIN, CHORIONIC (HCG) QUANT <2.4 Normal See Comment [employer] Comment on above: Result Comment: HCG REFERENCE RANGE: ?Non- female ? ? ?<5 mIU/mL ? Gestational Age (weeks) ? ? ?hCG Mean (mIU/mL) ? ?1-10 ?31,142 ?11-15 ? 55,425 ? ? ?16-22 ? 27,023 ? ? ?23-40 ? 24,031 ? Performed By: #### 4 [id number], [id number] #### TERA MATHEWS (2012) [facility] [address] [place] [address] CBC AND DIFFERENTIALon 09-26 ABSOLUTE BASOPHIL 0.0 x10*3/uL Normal 0.0-0.1 [facility] Comment on above: Performed By: #### 4 [id number], [id number] #### TERA MATHEWS (2012) [facility] [address] [place] [address] ABSOLUTE EOSINOPHIL 0.1 x10*3/uL Normal 0.1-0.3 [facility] Comment on above: Performed By: #### 4 [id number], [id number] #### TERA MATHEWS (2012) [facility] [address] [place] [address] ABSOLUTE IMMATURE GRANULOCYTES 0.0 x10*3/uL Normal 0.0-0.1 [facility] Comment on above: Performed By: #### 4 [id number], [id number] #### TERA MATHEWS (2012) [facility] [address] [place] [address] ABSOLUTE LYMPH 1.2 x10*3/uL Normal 1.2-3.3 [facility] Comment on above: Performed By: #### 4 [id number], [id number] #### TERA MATHEWS (2012) [facility] [address] [place] [address] ABSOLUTE MONO 0.3 x10*3/uL Normal 0.2-0.6 [facility] Comment on above: Performed By: #### 4 [id number], [id number] #### TERA MATHEWS (2012) [facility] [address] [place] [address] ABSOLUTE NEUTROPHIL 3.0 x10*3/uL Normal 2.4-6.6 [facility] Comment on above: Performed By: #### 4 [id number], [id number] #### TERA MATHEWS (2012) [facility] [address] [place] [address] Basophils/100 WBC (Bld) 0.9 % Normal [facility] Comment on above: Performed By: #### 4 [id number], [id number] #### TERA MATHEWS (2012) [facility] [address] [place] [address] Eosinophils/100 WBC (Bld) 1.5 % Normal [facility] Comment on above: Performed By: #### 4 [id number], [id number] #### TERA MATHEWS (2012) [facility] [address] [place] [address] Erythrocyte distribution width (RBC) [Ratio] 13.9 % Normal 11.5-14.5 [facility] Comment on above: Performed By: #### 4 [id number], [id number] #### TERA MATHEWS (2012) [facility] [address] [place] [address] Hematocrit (Bld) [Volume fraction] 40.3 % Normal 33.6-46.8 [facility] Comment on above: Performed By: #### 4 [id number], [id number] #### TERA MATHEWS (2012) [facility] [address] [place] [address] Hemoglobin (Bld) [Mass/Vol] 13.2 g/dL Normal 11.7-15.8 [facility] Comment on above: Performed By: #### 4 [id number], [id number] #### TERA MATHEWS (2012) [facility] [address] [place] [address] Immature granulocytes/100 WBC (Bld) 0.0 % Normal [facility] Comment on above: Performed By: #### 4 [id number], [id number] #### TERA MATHEWS (2012) [facility] [address] [place] [address] Lymphocytes/100 WBC (Bld) 27.0 % Normal [facility] Comment on above: Performed By: #### 4 [id number], [id number] #### TERA MATHEWS (2012) [facility] [address] [place] [address] MCH (RBC) [Entitic mass] 30.8 pg Normal 27.5-32.3 [facility] Comment on above: Performed By: #### 4 [id number], [id number] #### TERA MATHEWS (2012) [facility] [address] [place] [address] MCHC (RBC) [Mass/Vol] 32.8 g/dL Normal 30.7-35.5 [facility] Comment on above: Performed By: #### 4 [id number], [id number] #### TERA MATHEWS (2012) [facility] [address] [place] [address] MCV (RBC) [Entitic vol] 93.9 fL Normal 80.2-99 [facility] Comment on above: Performed By: #### 4 [id number], [id number] #### TERA MATHEWS (2012) [facility] [address] [place] [address] Monocytes/100 WBC (Bld) 5.5 % Normal [facility] Comment on above: Performed By: #### 4 [id number], [id number] #### TERA MATHEWS (2012) [facility] [address] [place] [address] Neutrophils/100 WBC (Bld) 65.1 % Normal [facility] Comment on above: Performed By: #### 4 [id number], [id number] #### TERA MATHEWS (2012) [facility] [address] [place] [address] PLATELET COUNT 179 x10*3/uL Normal 150-400 [facility] Comment on above: Performed By: #### 4 [id number], [id number] #### TERA MATHEWS (2012) [facility] [address] [place] [address] RED BLOOD CELL COUNT 4.29 x10*6/uL Normal 3.60-5.20 [facility] Comment on above: Performed By: #### 4 [id number], [id number] #### TERA MATHEWS (2012) [facility] [address] [place] [address] WHITE BLOOD CELLS 4.6 x10*3/uL Normal 4.3-10.3 [facility] Comment on above: Performed By: #### 4 [id number], [id number] #### TERA MATHEWS (2012) [facility] [address] [place] [address] CBC with differentialon 05-0 Absolute Immature Granulocytes 0.0 [facility] Age [Time] 93.9 fL 80.2 - 99 fL [facility] Age [Time] 30.8 pg 27.5 - 32.3 pg [facility] Age [Time] 32.8 g/dL 30.7 - 35.5 g/dL [facility] B. burgdorferi IgM IB Ql (CSF) 27.0 % [facility] Basophils (Bld) [#/Vol] 0.0 10*3/uL [facility] Basophils/100 WBC (Body fld) 0.9 % [facility] Eosinophils (Bld) [#/Vol] 1.2 10*3/uL [facility] Eosinophils (Bld) [#/Vol] 0.3 10*3/uL [facility] Eosinophils (Bld) [#/Vol] 0.1 10*3/uL [facility] Eosinophils/100 WBC (Bld) 1.5 % [facility] Erythrocyte distribution width (RBC) [Ratio] 13.9 % 11.5 - 14.5 % [facility] Hematocrit (Bld) [Volume fraction] 40.3 % 33.6 - 46.8 % [facility] Hexanoylglycine (U) [Moles/Vol] 13.2 g/dL 11.7 - 15.8 g/dL [facility] Immature granulocytes/100 WBC (Bld) 0.0 % [facility] Monocytes/100 WBC (Bld) 5.5 % [facility] Neurotensin (P) [Mass/Vol] 65.1 % [facility] Neutrophils (Bld) [#/Vol] 3.0 10*3/uL [facility] Platelets (Bld) [#/Vol] 179 10*3/uL [facility] RBC (Bld) [#/Vol] 4.29 10*6/uL [facility] WBC LM Ql (Sput) 4.[address] [facility] [place] [place] COMPREHENSIVE METABOLIC PANE Carlos 09-26-2022 Albumin [Mass/Vol] 4.5 g/dL Normal 3.5-5.0 [facility] Comment on above: Performed By: #### 4 [id number], [id number] #### TERA MATHEWS (2012) [facility] [address] [place] [address] ALK PHOS 43 U/L Normal 24-126 [facility] Comment on above: Performed By: #### 4 [id number], [id number] #### TERA MATHEWS (2012) [facility] [address] [place] [address] ALT [Catalytic activity/Vol] 17 U/L Normal 4-35 [facility] Comment on above: Performed By: #### 4 [id number], [id number] #### TERA MATHEWS (2012) [facility] [address] [place] [address] Anion gap [Moles/Vol] 9 mmol/L Normal 8-12 [facility] Comment on above: Performed By: #### 4 [id number], [id number] #### TERA MATHEWS (2012) [facility] [address] [place] [address] AST [Catalytic activity/Vol] 21 U/L Normal 3-47 [facility] Comment on above: Performed By: #### 4 [id number], [id number] #### TERA MATHEWS (2012) [facility] [address] [place] [address] Bilirubin [Mass/Vol] 0.5 mg/dL Normal 0.2-1.6 [facility] Comment on above: Performed By: #### 4 [id number], [id number] #### TERA MATHEWS (2012) [facility] [address] [place] [address] Calcium [Mass/Vol] 9.6 mg/dL Normal 8.4-10.4 [facility] Comment on above: Performed By: #### 4 [id number], [id number] #### TERA MATHEWS (2012) [facility] [address] [place] [address] Chloride [Moles/Vol] 103 mmol/L Normal 96-109 [facility] Comment on above: Performed By: #### 4 [id number], [id number] #### TERA MATHEWS (2012) [facility] [address] [place] [address] CO2 [Moles/Vol] 26 mmol/L Normal 22-30 [facility] Comment on above: Performed By: #### 4 [id number], [id number] #### TERA MATHEWS (2012) [facility] [address] [employer] [place] [address] Creatinine [Mass/Vol] 0.61 mg/dL Normal 0.52-1.04 [facility] [employer] [facility] Comment on above: Performed By: #### 4 [id number], [id number] #### TERA MATHEWS (2012) [facility] [address] [employer] ([employer] [place] [address] GLOMERULAR FILTRATION RATE ML/MIN/1.73 SQ M.PREDICTED >90.0 Normal >=60.0 [facility] [employer] [facility] Comment on above: Result Comment: eGFR [...] Kidney Int Suppl.2013;3:1-150 Performed By: #### 4 [id number], [id number] #### TERA MATHEWS (2012) [facility] [address] [employer] ([employer] [place] [address] Glucose [Mass/Vol] 93 mg/dL Normal 65-100 [facility] [employer] [facility] Comment on above: Performed By: #### 4 [id number], [id number] #### TERA MATHEWS (2012) [facility] [address] [employer] [place] [address] Potassium [Moles/Vol] 3.6 mmol/L Normal 3.6-5.1 [facility] [employer] [facility] Comment on above: Performed By: #### 4 [id number], [id number] #### TERA MATHEWS (2012) [facility] [address] [place] [address] Protein [Mass/Vol] 7.7 g/dL Normal 6.3-8.2 [facility] [employer] Comment on above: Performed By: #### 4 [id number], [id number] #### TERA MATHEWS (2012) [facility] [address] [place] [address] Sodium [Moles/Vol] 138 mmol/L Normal 135-147 [facility] Comment on above: Performed By: #### 4 [id number], [id number] #### TERA MATHEWS (2012) [facility] [address] [place] [address] Urea nitrogen [Mass/Vol] 15 mg/dL Normal 8-26 [facility] Comment on above: Performed By: #### 4 [id number], [id number] #### TERA MATHEWS (2012) [facility] [address] [place] [address] Comprehensive metabolic 2000 panelon 09-26-2022 Albumin (Syn fld) [Mass/Vol] 4.5 g/dL 3.5 - 5.0 g/dL [facility] Aldosterone (U) [Mass/Vol] 43 U/L 24 - 126 U/L [facility] ALT [Catalytic activity/Vol] 17 U/L 4 - 35 U/L [facility] Anion gap [Moles/Vol] 9 mmol/L 8 - 12 mmol/L [facility] AST [Catalytic activity/Vol] 21 U/L 3 - 47 U/L [facility] Bilirubin [Mass/Vol] 0.5 mg/dL 0.2 - 1 .6 mg/dL [facility] Calcium [Mass/Vol] 9.6 mg/dL 8.4 - 10. 4 mg/dL [facility] Calcium hydrogen phosphate dihydrate crystals LM Ql (Urine sed) 15 mg/dL 8 - 26 mg/dL [facility] Chloride [Moles/Vol] 103 mmol/L 96 - 10 9 mmol/L [facility] CMV IgM IF Ql 26 mmol/L 22 - 30 mmol/L [facility] Creatinine [Mass/Vol] 0.61 mg/dL 0.52 - 1.04 mg/dL [facility] GFR/1.73 sq M.predicted MDRD (S/P/Bld) [Vol rate/Area] - PINF [facility] Comment on above: eGFR calculation bas ed [...] [Mass/Vol] 93 mg/dL 65 - 100 mg/dL [facility] Potassium [Moles/Vol] 3.6 mmol/L 3.6 - 5.1 mmol/L [facility] [employer] Protein [Mass/Vol] 7.7 g/dL 6.3 - 8.2 g/dL [facility] Sodium [Moles/Vol] 138 mmol/L 135 - 147 mmol/L [facility] HCG Qn (U)Ordered By: Ayleen Mcconnell on 09-26-2022 Beta HCG ( test) Ql (U) Negative [facility] [place] [place] HCG URINE (PREG)on 3 HCG ( test) Ql (U) Negative Normal [facility] Comment on above: Performed By: #### 4 [id number], [id number] #### TERA MATHEWS (2012) [facility] [address] [place] [address] HCG [Moles/Vol]on 09-26-2022 HCG Qn See Comment mIU/mL [facility] Comment on above: HCG REFERENCE RANGE: Non- female <5 mIU/mL Gestational Age (weeks) hCG Mean (mIU/mL) 1-10 31,142 11-15 55,425 16-22 27,023 23-40 24,031 [facility] LIPASEon 09-26-2022 Lipase [Catalytic activity/Vol] 48 U/L Normal 23-300 [facility] Comment on above: Performed By: #### 4 [id number], [id number] #### TERA MATHEWS (2012) [facility] [address] [place] [address] Lipaseon 09-26-2022 Lipase [Catalytic activity/Vol] 48 U/L 23 - 300 U/L [facility] No Panel Informationon 09-26 Interpretation and review of laboratory results Normal [facility] [place] [place] POCT ED/FC/SURG Urine Pregon 05-01-2023 Beta HCG ( test) Ql (U) Negative [facility] Interpretation and review of laboratory results Normal [facility] Route Deliverer Acceptable yes [facility] URINE CHEM STRIP ONLYon 05-0 Appearance (U) Clear Normal [facility] Comment on above: Performed By: #### 4 [id number], [id number] #### TERA MATHEWS (2012) [facility] [address] [place] [address] BILIRUBIN UA Negative Normal Negative [facility] Comment on above: Performed By: #### 4 [id number], [id number] #### TERA MATHEWS (2012) [facility] [address] [place] [address] Color (U) Light Yellow Normal [facility] Comment on above: Performed By: #### 4 [id number], [id number] #### TERA MATHEWS (2012) [facility] [address] [place] [address] Glucose Ql (U) Negative Normal Negative [facility] Comment on above: Performed By: #### 4 [id number], [id number] #### TERA MATHEWS (2012) [facility] [address] [place] [address] Ketones Ql (U) Negative Normal Negative [facility] Comment on above: Performed By: #### 4 [id number], [id number] #### TERA MATHEWS (2012) [facility] [address] [place] [address] LEUKOESTERASE Negative Normal Negative [facility] Comment on above: Performed By: #### 4 [id number], [id number] #### TERA MATHEWS (2012) [facility] [address] [place] [address] Nitrite Ql (U) Negative Normal Negative [facility] Comment on above: Performed By: #### 4 [id number], [id number] #### TERA MATHEWS (2012) [facility] [address] [place] [address] OCCULT BLD Negative Normal Negative [facility] Comment on above: Performed By: #### 4 [id number], [id number] #### TERA MATHEWS (2012) [facility] [address] [place] [address] PH, URINE 7.0 Normal [facility] Comment on above: Performed By: #### 4 [id number], [id number] #### ETRA MATHEWS (2012) [facility] [address] [place] [address] Protein Ql (U) Negative Normal Negative [facility] Comment on above: Performed By: #### 4 [id number], [id number] #### TERA MATHEWS (2012) [facility] [address] [place] [address] SPECIFIC GRAVITY, URINE 1.010 Normal [facility] Comment on above: Performed By: #### 4 [id number], [id number] #### TERA MATHEWS (2012) [facility] [address] [place] [address] UROBILINOGEN UA <2.0 Normal <2.0 [facility] Comment on above: Performed By: #### 4 [id number], [id number] #### TERA MATHEWS (2012) [facility] [address] [place] [address] US Ovary for torsionon 09-26 AGE-APPROPRIATE UTER US AND OVARIES. : [facility] EXAM: US PELVIS-TORSION STUDY HISTORY: left sided [...] No dominant ovarian cyst. No pelvic ascites. [facility] Roshan Mary MD - 09/26/2022 EXAM: US [...] ascites. IMPRESSION: AGE-APPROPRIATE UTERUS AND OVARIES. : [facility] Radiology Study observation (narrative) [facility] US Ovary for torsionOrdered By: Roshan Mary on 09-26-2022 [employer] Work Phone: US PELVIS-TORSION STUDYon US PELVIS-TORSION [...] Order Comments: Ordering Physician: Jeanie Menjivar APRN EMERGENCY DETAIL DRIVER Dose: Normal [employer] Urine DipOrdered By: [facility] on 09-26-2022 Acetone [Mass/Vol] Negative Negative [employer] Appearance (Body fld) Clear [employer] [facility] Bilirubin Ql (U) Negative Negative [employer] Color (Stone) Light Yellow [employer] [facility] G6PD (RBC) [Catalytic activity/Vol] Negative Negative [employer] [facility] Hemoglobin.gastrointes tinal (Stl) [Mass/Mass] Negative Negative [employer] Leukocyte esterase Test strip Ql (U) Negative Negative [employer] Nitrite Test strip (U) [Mass/Vol] Negative Negative [employer] [facility] pH (Gillian fld) 7.0 [employer] Protein (U) [Mass/Vol] Negative Negative [employer] [facility] Specific gravity (U) [Rel density] 1.010 [employer] Urobilinogen Qn (U) <2.0 NINF - 2.0 [facility] [employer] [facility] Vitamin D 25 OHon 09-01-2021 Vitamin D 25 [place] 19.3 ng/mL Low >29.9 [facility] Comment on above: Result Comment: Reference Range: Vitamin D status Range Deficiency <20 ng/mL Mild Deficiency 20-30 ng/mL Sufficiency 30-100 ng/mL Toxicity >100 ng/mL [facility] [address] [place] [address] ([phone] Basic Metabolic Panelon 04-0 Anion gap [Moles/Vol] 8 mmol/L Low 9-15 [facility] Comment on above: Performed By: #### B MP #### [facility] [address] [place] [address] Calcium [Mass/Vol] 9.0 mg/dL Normal 8.5-9.9 [facility] Comment on above: Performed By: #### B MP #### [facility] [address] [place] [address] Chloride [Moles/Vol] 104 mmol/L Normal 95-107 [facility] Comment on above: Performed By: #### B MP #### [facility] [address] [place] [address] CO2 [Moles/Vol] 25 mmol/L Normal 20-31 [facility] Comment on above: Performed By: #### B MP #### [facility] [address] [place] [address] Creatinine [Mass/Vol] 0.59 mg/dL Normal 0.50-0.90 [facility] Comment on above: Performed By: #### B MP #### [facility] [address] [place] [address] GFR >60.0 Normal >60 [facility] Comment on above: Result Comment: >60 mL/min/1.73m2 EGFR, calc. for ages 18 and older using the MDRD formula (not corrected for weight), is valid for stable renal function. Performed By: #### B MP #### [facility] [address] [place] [address] GFR/1.73 sq M.predicted among blacks MDRD (S/P/Bld) [Vol rate/Area] mL/min/{1.73_m2} Normal >60 [facility] Comment on above: Result Comment: >60 mL/min/1.73m2 EGFR, calc. for ages 18 and older using the MDRD formula (not corrected for weight), is valid for stable renal function. Performed By: #### B MP #### [facility] [address] [place] [address] Glucose [Mass/Vol] 88 mg/dL Normal 70-99 [facility] Comment on above: Performed By: #### B MP #### [facility] [address] [place] [address] Potassium [Moles/Vol] 4.1 mmol/L Normal 3.4-4.9 [facility] Comment on above: Performed By: #### B MP #### [facility] [address] [place] [address] Sodium [Moles/Vol] 137 mmol/L Normal 135-144 [facility] Comment on above: Performed By: #### B MP #### [facility] [address] [place] [address] Urea nitrogen [Mass/Vol] 14 mg/dL Normal 6-20 [facility] Comment on above: Performed By: #### B MP #### [facility] [address] [place] [address] CBC With Platelet No Differe ntialon 08-31-2021 Erythrocyte distribution width (RBC) [Ratio] 19.2 % Critically high 11.5-14.5 [facility] Comment on above: Performed By: #### C BCND #### [facility] [address] [place] [address] Hematocrit (Bld) [Volume fraction] 33.4 % Low 37.0-47.0 [facility] Comment on above: Performed By: #### C BCND #### [facility] [address] [place] [address] Hemoglobin (Bld) [Mass/Vol] 10.7 g/dL Low 12.0-16.0 [facility] Comment on above: Performed By: #### C BCND #### [facility] [address] [place] [address] MCH (RBC) [Entitic mass] 28.8 pg Normal 27.0-31.3 [facility] Comment on above: Performed By: #### C BCND #### [facility] [address] [place] [address] MCHC 32.2 % Low 33.0-37.0 [facility] Comment on above: Performed By: #### C BCND #### [facility] [address] [place] [address] MCV (RBC) [Entitic vol] 89.5 fL Normal 82.0-100.0 [facility] Comment on above: Performed By: #### C BCND #### [facility] [address] [place] [address] Platelets (Bld) [#/Vol] 264 10*3/uL Normal 130-400 [facility] Comment on above: Performed By: #### C BCND #### [facility] [address] [place] [address] RBC (Bld) [#/Vol] 3.73 10*6/uL Low 4.20-5.40 [facility] Comment on above: Performed By: #### C BCND #### [facility] [address] [place] [address] WBC (Bld) [#/Vol] 4.9 10*3/uL Normal 4.8-10.8 [facility] Comment on above: Performed By: #### C BCND #### [facility] [address] [place] [address] Lipid Panelon 08-31-2021 Cholesterol [Mass/Vol] 219 mg/dL Critically high 0-199 [facility] Comment on above: Result Comment: ATP III Cholesterol Classification is Borderline High. Performed By: #### L IPID #### [facility] [address] [place] [address] Cholesterol in HDL [Mass/Vol] 69 mg/dL Critically high 40-59 [facility] Comment on above: Result Comment: ATP [...] CHD Performed By: #### L IPID #### [facility] [address] [place] [address] Cholesterol in LDL [Mass/Vol] 132 mg/dL Critically high 0-129 [facility] Comment on above: Result Comment: ATT III Classification is Borderline High. Performed By: #### L IPID #### [facility] [address] [place] [address] Triglyceride [Mass/Vol] 92 mg/dL Normal 0-150 [facility] Comment on above: Result Comment: ATP III Triglycerides Classification is Normal. Performed By: #### L IPID #### [facility] [address] [place] [address] [place] Levelon 08-31-2021 [place] [Moles/Vol] 0.6 mmol/L Normal 0.6-1.2 [facility] Comment on above: Performed By: #### L ITH #### [facility] [address] [facility] [place] [address] TSH w/out Reflexon 2 TSH w/out Reflex 2.710 uIU/mL Normal 0.440-3.86 [facility] Comment on above: Performed By: #### T SH #### [facility] [address] [place] [address] CBC with Diffon 08-26-2021 Abs. Basophil 0.07 k/uL Normal 0.00-0.20 [facility] Comment on above: Performed By: #### U HCG, UAX, UMICAO #### [facility] [address] [place] [id number] Top Inventory Control Executive: Tami Villanueva MD Abs.Imm.Granulocyte <0.03 Normal 0.00-0.30 [facility] Comment on above: Performed By: #### U HCG, UAX, UMICAO #### [address] [place] [id number] Top Inventory Control Executive: Tami Villanueva MD Abs.Neutrophil (Seg) 4.50 k/uL Normal 1.50-8.10 [facility] Comment on above: Performed By: #### U HCG, UAX, UMICAO #### [address] [place] [address] Top Inventory Control Executive: Tami Villanueva MD Basophils/100 WBC (Bld) 1 % Normal 0-2 [facility] Comment on above: Performed By: #### U HCG, UAX, UMICAO #### [address] [place] [id number] Top Inventory Control Executive: Tami Villanueva MD Eosinophils (Bld) [#/Vol] 0.14 10*3/uL Normal 0.00-0.44 [facility] Comment on above: Performed By: #### U HCG, UAX, UMICAO #### [address] [place] [id number] Top Inventory Control Executive: Tami Villanueva MD Eosinophils/100 WBC (Bld) 2 % Normal 1-4 [facility] Comment on above: Performed By: #### U HCG, UAX, UMICAO #### [address] [place] [address] Top Inventory Control Executive: Tami Villanueva MD Erythrocyte distribution width (RBC) [Ratio] 18.1 % High 11.8-14.4 [facility] Comment on above: Performed By: #### U HCG, UAX, UMICAO #### [address] [place] [facility] Top Inventory Control Executive: Tami Villanueva MD Hematocrit (Bld) [Volume fraction] 36.8 % Normal 36.3-47.1 [facility] Comment on above: Performed By: #### U HCG, UAX, UMICAO #### [facility] [address] [place], [facility] Top Inventory Control Executive: Tami Villanueva MD Hemoglobin (Bld) [Mass/Vol] 11.8 g/dL Low 11.9-15.1 [facility] Comment on above: Performed By: #### U HCG, UAX, UMICAO #### [facility] [address] [place], [facility] Top Inventory Control Executive: Tami Villanueva MD Immature granulocytes/100 WBC (Bld) 0 % Normal 0 [facility] Comment on above: Performed By: #### U HCG, UAX, UMICAO #### [address] [place], [facility] Top Inventory Control Executive: Taim Villanueva MD Lymphocytes (Bld) [#/Vol] 1.40 10*3/uL Normal 1.10-3.70 [facility] Comment on above: Performed By: #### U HCG, UAX, UMICAO #### [address] [place], [facility] Top Inventory Control Executive: Tami Villanueva MD Lymphocytes/100 WBC (Bld) 22 % Low 24-43 [facility] Comment on above: Performed By: #### U HCG, UAX, UMICAO #### [facility] [address] [place], [facility] Top Inventory Control Executive: Tami Villanueva MD MCH (RBC) [Entitic mass] 28.4 pg Normal 25.2-33.5 [facility] Comment on above: Performed By: #### U HCG, UAX, UMICAO #### [facility] [address] [place], [place] [phone] Top Inventory Control Executive: Tami Villanueva MD MCHC (RBC) [Mass/Vol] 32.1 g/dL Normal 28.4-34.8 [facility] Comment on above: Performed By: #### U HCG, UAX, UMICAO #### [facility] [address] [place] [id number] Top Inventory Control Executive: Tami Villanueva MD MCV (RBC) [Entitic vol] 88.7 fL Normal 82.6-102.9 [facility] Comment on above: Performed By: #### U HCG, UAX, UMICAO #### [address] [place], [place] [phone] Top Inventory Control Executive: Tami Villanueva MD Monocytes (Bld) [#/Vol] 0.29 10*3/uL Normal 0.10-1.20 [facility] Comment on above: Performed By: #### U HCG, UAX, UMICAO #### [facility] [address] [place] [address] Dr[place], [place] [phone] Top Inventory Control Executive: Tami Villanueva MD Monocytes/100 WBC (Bld) 5 % Normal 3-12 [facility] Comment on above: Performed By: #### U HCG, UAX, UMICAO #### [address] [place], [facility] Top Inventory Control Executive: Tami Villanueva MD Neutrophil (Seg) 70 % High 36-65 [facility] Comment on above: Performed By: #### U HCG, UAX, UMICAO #### [facility] [address] [place], [place] [phone] Top Inventory Control Executive: Tami Villanueva MD NRBC Automated 0.0 per 100 WBC Normal 0.0 [facility] Comment on above: Performed By: #### U HCG, UAX, UMICAO #### [facility] [address] [place] [phone] Top Inventory Control Executive: Tami Villanueva MD Platelet mean volume (Bld) [Entitic vol] 10.1 fL Normal 8.1-13.5 [facility] Comment on above: Performed By: #### U HCG, UAX, UMICAO #### [facility] [address] [place], [place] [phone] Top Inventory Control Executive: Tami Villanueva MD Platelets (Bld) [#/Vol] 366 10*3/uL Normal 138-453 [facility] Comment on above: Performed By: #### U HCG, UAX, UMICAO #### [facility] [address] [place], [place] [phone] Top Inventory Control Executive: Tami Villanueva MD RBC (Bld) [#/Vol] 4.15 10*6/uL Normal 3.95-5.11 [facility] Comment on above: Performed By: #### U HCG, UAX, UMICAO #### [facility] [address] [place], [place] [phone] Top Inventory Control Executive: Tami Villanueva MD WBC (Bld) [#/Vol] 6.4 10*3/uL Normal 3.5-11.3 [facility] Comment on above: Performed By: #### U HCG, UAX, UMICAO #### [facility] [address] [place], [facility]83 Top Inventory Control Executive: Tami Villanueva MD Comp Metabolic Profon 2021 (cont.) Normal [facility] Comment on above: Result Comment: Aver age GFR for 30-39 years old: 107 mL/min/1.73sq m Chronic Kidney Disease: <60 mL/min/1.73sq m Kidney failure: <15 mL/min/1.73sq m eGFR calculated using average adult body mass. Additional eGFR calculator available at: http://www.[employer]/multiple_crcl_2011.htm Performed By: #### U HCG, UAX, UMICAO #### [facility] [address] [place], [place] [id number] Top Inventory Control Executive: Tami Villanueva MD Albumin [Mass/Vol] 4.5 g/dL Normal 3.5-5.2 [facility] Comment on above: Performed By: #### U HCG, UAX, UMICAO #### [facility] [address] [place], [place] [id number] Top Inventory Control Executive: Tami Villanueva MD Albumin/Glob Ratio 1.7 Normal 1.0-2.5 [facility] Comment on above: Performed By: #### U HCG, UAX, UMICAO #### [facility] [address] [place], [place] [phone] Top Inventory Control Executive: Tami Villanueva MD Alkaline Phos 57 U/L Normal 35-104 [facility] Comment on above: Performed By: #### U HCG, UAX, UMICAO #### [facility] [address] [place], [place] [phone] Top Inventory Control Executive: Tami Villanueva MD ALT [Catalytic activity/Vol] 31 U/L Normal 5-33 [facility] Comment on above: Performed By: #### U HCG, UAX, UMICAO #### [facility] [address] [place], [place] 8471483 Top Inventory Control Executive: Tami Villanueva MD Anion gap [Moles/Vol] 10 mmol/L Normal 9-17 [facility] Comment on above: Performed By: #### U HCG, UAX, UMICAO #### [facility] [address] [place], [place] [id number] Top Inventory Control Executive: Tami Villanueva MD AST [Catalytic activity/Vol] 22 U/L Normal <32 [facility] Comment on above: Performed By: #### U HCG, UAX, UMICAO #### [facility] [address] [place], [place] [id number] Top Inventory Control Executive: Tami Villanueva MD Bilirubin [Mass/Vol] 0.16 mg/dL Low 0.3-1.2 [facility] Comment on above: Performed By: #### U HCG, UAX, UMICAO #### [facility] [address] [place], [place] 6393583 Top Inventory Control Executive: Tami Villanueva MD BUN/CRE Ratio 31 High 9-20 [facility] Comment on above: Performed By: #### U HCG, UAX, UMICAO #### [facility] [address] [place], [place] [phone] Top Inventory Control Executive: Tami Villanueva MD Calcium [Mass/Vol] 9.6 mg/dL Normal 8.6-10.4 [facility] Comment on above: Performed By: #### U HCG, UAX, UMICAO #### [facility] [address] [place] [address] Top Inventory Control Executive: Tami Villanueva MD Chloride [Moles/Vol] 103 mmol/L Normal 98-107 [facility] Comment on above: Performed By: #### U HCG, UAX, UMICAO #### [facility] [address] [place] [address] Dr. [place], [place] [phone] Top Inventory Control Executive: Tami Villanueva MD CO2 [Moles/Vol] 26 mmol/L Normal 20-31 [facility] Comment on above: Performed By: #### U HCG, UAX, UMICAO #### [facility] [address] [place] [address] Top Inventory Control Executive: Tami Villanueva MD Creatinine [Mass/Vol] 0.58 mg/dL Normal 0.50-0.90 [facility] Comment on above: Performed By: #### U HCG, UAX, UMICAO #### [facility] [address] [place], [place] [id number] Top Inventory Control Executive: Tami Villanueva MD GFR, Amer >60 Normal >60 [facility] Comment on above: Performed By: #### U HCG, UAX, UMICAO #### [facility] [address] [place], [place] [phone] Top Inventory Control Executive: Tami Villanueva MD GFR,non Amer >60 Normal >60 [facility] Comment on above: Performed By: #### U HCG, UAX, UMICAO #### [facility] [address] [place], [place] 5616083 Top Inventory Control Executive: Tami Villanueva MD Glucose [Mass/Vol] 96 mg/dL Normal 70-99 [facility] Comment on above: Performed By: #### U HCG, UAX, UMICAO #### [facility] [address] [place], [place] [phone] Top Inventory Control Executive: Tami Villanueva MD Potassium [Moles/Vol] 3.2 mmol/L Low 3.7-5.3 [facility] Comment on above: Performed By: #### U HCG, UAX, UMICAO #### [facility] [address] [place] [address] Dr. [place], [place] [id number] Top Inventory Control Executive: Tami Villanueva MD Protein [Mass/Vol] 7.2 g/dL Normal 6.4-8.3 [facility] Comment on above: Performed By: #### U HCG, UAX, UMICAO #### [facility] [address] [place], [place] [phone] Top Inventory Control Executive: Tami Villanueva MD Sodium [Moles/Vol] 139 mmol/L Normal 135-144 [facility] Comment on above: Performed By: #### U HCG, UAX, UMICAO #### [facility] [address] [place] [address] Top Inventory Control Executive: Tami Villanueva MD Staging: Normal [facility] Comment on above: Result Comment: Stag e 1: Some kidney damage normal GFR Stage 2: Mild kidney damage GFR 60-89 Stage 3: Moderate kidney damage GFR 30-59 Stage 4: Severe kidney damage GFR 15-29 Stage 5: Severe kidney damage GFR <15 ESRD - chronic treatment by dialysis or transplant Performed By: #### U HCG, UAX, UMICAO #### [facility] [address] [place], [place] [id number] Top Inventory Control Executive: Tami Villanueva MD Urea nitrogen [Mass/Vol] 18 mg/dL Normal 6-20 [facility] Comment on above: Performed By: #### U HCG, UAX, UMICAO #### [facility] [address] [place] [address] Top Inventory Control Executive: Tami Villanueva MD Drug Scr, Abuse, Uron 2021 Amphetamine(s),Ur Negative Normal NEG [facility] Comment on above: Performed By: #### U HCG, UAX, UMICAO #### [facility] [address] [place] [address] Dr. [place], [place] [phone] Top Inventory Control Executive: Tami Villanueva MD Barbiturate(s),Ur Negative Normal NEG [facility] Comment on above: Performed By: #### U HCG, UAX, UMICAO #### [address] [place], [place] [phone] Top Inventory Control Executive: Tami Villanueva MD Benzodiazepine(s) Negative Normal NEG [facility] Comment on above: Performed By: #### U HCG, UAX, UMICAO #### [facility] [address] [place] [address] [place] [address] Top Inventory Control Executive: Tami Villanueva MD Buprenorphrine, Ur Negative Normal NEG [facility] Comment on above: Performed By: #### U HCG, UAX, UMICAO #### [facility] [address] [place] [address] [place] [address] Top Inventory Control Executive: Tami Villanueva MD Cannabinoid(s),Ur Positive Abnormal NEG [facility] Comment on above: Performed By: #### U HCG, UAX, UMICAO #### [facility] [address] [place], [place] [phone] Top Inventory Control Executive: Tami Villanueva MD Cocaine Metabolite Negative Normal [facility] Comment on above: Performed By: #### U HCG, UAX, UMICAO #### [facility] [address] [place], [place] [phone] Top Inventory Control Executive: Tami Villanueva MD Methadone Ql (U) Negative Normal [facility] Comment on above: Performed By: #### U HCG, UAX, UMICAO #### [facility] [address] [place], [place] 2861383 Top Inventory Control Executive: Tami Villanueva MD Methamphetamine, Ur Negative Normal [facility] Comment on above: Performed By: #### U HCG, UAX, UMICAO #### [facility] [address] [place] [address] Dr. [place], [place] [phone] Top Inventory Control Executive: Tami Villanueva MD Opiate(s), Ur Negative Normal [facility] Comment on above: Performed By: #### U HCG, UAX, UMICAO #### [facility] [address] [place], [place] 3112483 Top Inventory Control Executive: Tami Villanueva MD Oxycodone, Urine Negative Normal [facility] Comment on above: Performed By: #### U HCG, UAX, UMICAO #### [facility] [address] [place], [place] 7586083 Top Inventory Control Executive: Tami Villanueva MD Phencyclidine, Ur Negative Normal [facility] Comment on above: Performed By: #### U HCG, UAX, UMICAO #### [facility] [address] [place], [place] [phone] Top Inventory Control Executive: Tami Villanueva MD Propoxyphene,Urine Negative Normal NEG [facility] Comment on above: Performed By: #### U HCG, UAX, UMICAO #### [facility] [address] [place] [address] Top Inventory Control Executive: Tami Villanueva MD Tricyclic antidepressants Screen Ql (U) Negative Normal NEG [facility] Comment on above: Result Comment: Drug screen results are to be used for medical purposes only. All positive results are unconfirmed. Testing for employment or legal uses should be sent to a reference laboratory for confirmation. Performed By: #### U HCG, UAX, UMICAO #### [facility] [address] [place] [address] Top Inventory Control Executive: Tami Villanueva MD Ethanol Alcoholon 08-26-2021 Ethanol [Mass/Vol] mg/dL Normal <10 [facility] Comment on above: Performed By: #### A LCB #### [facility] [address] [place] [address] Top Inventory Control Executive: Tami Villanueva MD Ethanol percent <0.010 Normal <0.010 [facility] Comment on above: Performed By: #### A LCB #### [address] [place] [address] Top Inventory Control Executive: Tami Villanueva MD HCG Screen, Bloodon 08-27-19 HCG Screen, Blood Negative Normal NEG [facility] Comment on above: Result Comment: Spec imens with hCG levels near the threshold of the test (25 mIU/mL) may give a negative or indeterminate result. In such cases, another test should be performed with a new specimen in 48-72 hours. If early is suspected clinically in this setting, correlation with quantitative serum b-hCG level is suggested. [facility] has confirmed the use of plasma for this test. This has not been cleared or approved by the [place]. Food and Drug Administration. The FDA has determined that such clearance is not necessary. Performed By: #### U HCG, UAX, UMICAO #### [facility] [address] [place] [address] Top Inventory Control Executive: Tami Villanueva MD [id number] 08-26-2021 SARS-CoV-2 (COVID-19) RNA AMARA+probe Ql (Unsp spec) Not detected Normal NOTDET [facility] Comment on above: Result Comment: Rapid [...] management decisions. Fact sheet for Healthcare Providers: https://www.fda.gov/media/546998/download Fact sheet for Patients: https://www.fda.gov/media/414830/download Methodology: Isothermal Nucleic Acid Amplification Performed By: #### U HCG, UAX, UMICAO #### [facility] [address] [place] [address] [place] [address] Top Inventory Control Executive: Tami Villanueva MD UA w/Reflex Cultureon 2021 Bilirubin, SemiQt,Ur Negative Normal NEG [facility] Comment on above: Performed By: #### U HCG, UAX, UMICAO #### [facility] [address] [place] [address] Top Inventory Control Executive: Tami Villanueva MD Blood, Urine Negative Normal NEG [facility] Comment on above: Performed By: #### U HCG, UAX, UMICAO #### [facility] [address] [place] [address] Top Inventory Control Executive: Tami Villanueva MD Clarity (U) Clear Normal CLEAR [facility] Comment on above: Performed By: #### U HCG, UAX, UMICAO #### [facility] [address] [place], [place] [phone] Top Inventory Control Executive: Tami Villanueva MD Color (U) Yellow Normal YEL [facility] Comment on above: Performed By: #### U HCG, UAX, UMICAO #### [facility] [address] [place], [place] [phone] Top Inventory Control Executive: Tami Villanueva MD Glucose Ql (U) Negative Normal NEG [facility] Comment on above: Performed By: #### U HCG, UAX, UMICAO #### [facility] [address] [place] [address] [place]. [place], [place] [phone] Top Inventory Control Executive: Tami Villanueva MD Ketones Ql (U) Negative Normal NEG [facility] Comment on above: Performed By: #### U HCG, UAX, UMICAO #### [facility] [address] [place] [address] [place]. [place], [place] [phone] Top Inventory Control Executive: Tami Villanueva MD Leukocyte esterase Test strip Ql (U) TRACE Abnormal NEG [facility] Comment on above: Performed By: #### U HCG, UAX, UMICAO #### [facility] [address] [place] [address] [place]. [place], [place] [phone] Top Inventory Control Executive: Tami Villanueva MD Nitrite,Ur Negative Normal NEG [facility] Comment on above: Performed By: #### U HCG, UAX, UMICAO #### [facility] [address] [place], [place] [phone] Top Inventory Control Executive: Tami Villanueva MD PH,Ur 6.0 Normal 5.0-9.0 [facility] Comment on above: Performed By: #### U HCG, UAX, UMICAO #### [facility] [address] [place], [place] 6539583 Top Inventory Control Executive: Tami Villanueva MD Protein Ql (U) Negative Normal NEG [facility] Comment on above: Performed By: #### U HCG, UAX, UMICAO #### [facility] [address] [place] [address] Top Inventory Control Executive: Tami Villanueva MD Spec. [place],Ur 1.015 Normal 1.010-1.020 [facility] Comment on above: Performed By: #### U HCG, UAX, UMICAO #### [facility] [address] [place] [address] Top Inventory Control Executive: Tami Villauneva MD Urobilinogen,Ur Normal Normal NORM [facility] Comment on above: Performed By: #### U HCG, UAX, UMICAO #### [address] [place] [address] Top Inventory Control Executive: Tami Villanueva MD Urinalysis,Microon 2 ----- Normal [facility] Comment on above: Performed By: #### U HCG, UAX, UMICAO #### [facility] [address] [place] [address] [place] [address] Top Inventory Control Executive: Tami Villanueva MD Epithelial cells LM Ql (Urine sed) 0 TO 2 Normal 0-25 [facility] Comment on above: Performed By: #### U HCG, UAX, UMICAO #### [facility] [address] [place] [address] Top Inventory Control Executive: Tami Villanueva MD Urine RBC's 0 TO 2 Normal 0-2 [facility] Comment on above: Performed By: #### U HCG, UAX, UMICAO #### [facility] [address] [place] [address] Top Inventory Control Executive: Tami Villanueva MD Urine WBC's 2 TO 5 Normal 0-5 [facility] Comment on above: Performed By: #### U HCG, UAX, UMICAO #### [facility] [address] [place], [place] 5343683 Top Inventory Control Executive: Tami Villanueva MD CBCon 08-16-2021 Erythrocyte distribution width (RBC) [Ratio] 17.7 % High 11.8-14.4 [facility] Comment on above: Performed By: #### U HCG, UAX, UMICAO #### [facility] [address] [place], [place] [phone] Top Inventory Control Executive: Tami Villanueva MD Hematocrit (Bld) [Volume fraction] 37.7 % Normal 36.3-47.1 [facility] Comment on above: Performed By: #### U HCG, UAX, UMICAO #### [address] [place], [place] 5261683 Top Inventory Control Executive: Tami Villanueva MD Hemoglobin (Bld) [Mass/Vol] 11.8 g/dL Low 11.9-15.1 [facility] Comment on above: Performed By: #### U HCG, UAX, UMICAO #### [address] [place], [facility]83 Top Inventory Control Executive: Tami Villanueva MD MCH (RBC) [Entitic mass] 28.5 pg Normal 25.2-33.5 [facility] Comment on above: Performed By: #### U HCG, UAX, UMICAO #### [address] [place], [facility]83 Top Inventory Control Executive: Tami Villanueva MD MCHC (RBC) [Mass/Vol] 31.3 g/dL Normal 28.4-34.8 [facility] Comment on above: Performed By: #### U HCG, UAX, UMICAO #### [address] [place], [place] [phone] Top Inventory Control Executive: Tami Villanueva MD MCV (RBC) [Entitic vol] 91.1 fL Normal 82.6-102.9 [facility] Comment on above: Performed By: #### U HCG, UAX, UMICAO #### [facility] [address] [place], [facility]83 Top Inventory Control Executive: Tami Villanueva MD NRBC Automated 0.0 per 100 WBC Normal 0.0 [facility] Comment on above: Performed By: #### U HCG, UAX, UMICAO #### [facility] [address] [place], [facility]83 Top Inventory Control Executive: Tami Villanueva MD Platelet mean volume (Bld) [Entitic vol] 10.6 fL Normal 8.1-13.5 [facility] Comment on above: Performed By: #### U HCG, UAX, UMICAO #### [address] [place], [facility]83 Top Inventory Control Executive: Tami Villanueva MD Platelets (Bld) [#/Vol] 262 10*3/uL Normal 138-453 [facility] Comment on above: Performed By: #### U HCG, UAX, UMICAO #### [address] [place], [facility]83 Top Inventory Control Executive: Tami Villanueva MD RBC (Bld) [#/Vol] 4.14 10*6/uL Normal 3.95-5.11 [facility] Comment on above: Performed By: #### U HCG, UAX, UMICAO #### [facility] [address] [place], [facility]83 Top Inventory Control Executive: Tami Villanueva MD WBC (Bld) [#/Vol] 5.7 10*3/uL Normal 3.5-11.3 [facility] Comment on above: Performed By: #### U HCG, UAX, UMICAO #### [facility] [address] [place], [facility]83 Top Inventory Control Executive: Tami Villanueva MD Hematocrit (Bld) [Volume fraction] 37.7 % 36.3 - 47.1 % [facility] Hemoglobin.gastrointes tinal spec 1 Ql (Stl) 11.8 g/dL Low 11.9 - 15.1 g/dL [facility] Interpretation and review of laboratory results Abnormal [facility] MCH (RBC) [Entitic mass] 28.5 pg 25.2 - 33.5 pg [facility] MCHC (RBC) [Mass/Vol] 31.3 g/dL 28.4 - 34.8 g/dL [facility] MCV (RBC) [Entitic vol] 91.1 fL 82.6 - 102.9 fL [facility] NRBC Automated 0.0 0.0 per 100 WBC [facility] Platelet distribution width (Bld) [Ratio] 17.7 % High 11.8 - 14.4 % [facility] Platelet mean volume (Bld) [Entitic vol] 10.6 fL 8.1 - 13.5 fL [facility] Platelets (Bld) [#/Vol] 262 10*3/uL [facility] RBC (Bld) [#/Vol] 4.14 10*6/uL 3.95 - 5.1 1 m/uL [facility] WBC (Bld) [#/Vol] 5.7 10*3/uL [facility] Comp Metabolic Profon 2021 (cont.) Normal [facility] Comment on above: Result Comment: Aver age GFR for 30-39 years old: 107 mL/min/1.73sq m Chronic Kidney Disease: <60 mL/min/1.73sq m Kidney failure: <15 mL/min/1.73sq m eGFR calculated using average adult body mass. Additional eGFR calculator available at: http://www.[employer]/multiple_crcl_2011.htm Performed By: #### U HCG UAX, UMICAO #### [facility] [address] [place] [address] Top Inventory Control Executive: Tami Villanueva MD Albumin [Mass/Vol] 3.7 g/dL Normal 3.5-5.2 [facility] Comment on above: Performed By: #### U HCG, UAX, UMICAO #### [facility] [address] [place], [place] [phone] Top Inventory Control Executive: Tami Villanueva MD Albumin/Glob Ratio 1.4 Normal 1.0-2.5 [facility] Comment on above: Performed By: #### U HCG, UAX, UMICAO #### [facility] [address] [place], [place] 9515683 Top Inventory Control Executive: Tami Villanueva MD Alkaline Phos 46 U/L Normal 35-104 [facility] Comment on above: Performed By: #### U HCG, UAX, UMICAO #### [facility] [address] [place], [place] 1640583 Top Inventory Control Executive: Tami Villanueva MD ALT [Catalytic activity/Vol] 12 U/L Normal 5-33 [facility] Comment on above: Performed By: #### U HCG, UAX, UMICAO #### [facility] [address] [place], [place] [phone] Top Inventory Control Executive: Tami Villanueva MD Anion gap [Moles/Vol] 10 mmol/L Normal 9-17 [facility] Comment on above: Performed By: #### U HCG, UAX, UMICAO #### [facility] [address] [place], [place] 5393383 Top Inventory Control Executive: Tami Villanueva MD AST [Catalytic activity/Vol] 13 U/L Normal <32 [facility] Comment on above: Performed By: #### U HCG, UAX, UMICAO #### [facility] [address] [place], [place] 3100283 Top Inventory Control Executive: Tami Villanueva MD Bilirubin [Mass/Vol] mg/dL Low 0.3-1.2 [facility] Comment on above: Performed By: #### U HCG, UAX, UMICAO #### [facility] [address] [place], [place] 2536183 Top Inventory Control Executive: Tami Villanueva MD BUN/CRE Ratio 25 High 9-20 [facility] Comment on above: Performed By: #### U HCG, UAX, UMICAO #### [facility] [address] [place] 7381383 Top Inventory Control Executive: Tami Villanueva MD Calcium [Mass/Vol] 8.9 mg/dL Normal 8.6-10.4 [facility] Comment on above: Performed By: #### U HCG, UAX, UMICAO #### [facility] [address] [place], [place] 5721083 Top Inventory Control Executive: Tami Villanueva MD Chloride [Moles/Vol] 105 mmol/L Normal 98-107 [facility] Comment on above: Performed By: #### U HCG, UAX, UMICAO #### [facility] [address] [place], [place] [phone] Top Inventory Control Executive: Tami Villanueva MD CO2 [Moles/Vol] 23 mmol/L Normal 20-31 [facility] Comment on above: Performed By: #### U HCG, UAX, UMICAO #### [facility] [address] [place], [place] 2948083 Top Inventory Control Executive: Tami Villanueva MD Creatinine [Mass/Vol] 0.60 mg/dL Normal 0.50-0.90 [facility] Comment on above: Performed By: #### U HCG, UAX, UMICAO #### [facility] [address] [place], [place] 8196483 Top Inventory Control Executive: Tami Villanueva MD GFR, Amer >60 Normal >60 [facility] Comment on above: Performed By: #### U HCG, UAX, UMICAO #### [facility] [address] [place], [place] [phone] Top Inventory Control Executive: Tami Villanueva MD GFR,non Amer >60 Normal >60 [facility] Comment on above: Performed By: #### U HCG, UAX, UMICAO #### [facility] [address] [place], [place] 9892283 Top Inventory Control Executive: Tami Villanueva MD Glucose [Mass/Vol] 93 mg/dL Normal 70-99 [facility] Comment on above: Performed By: #### U HCG, UAX, UMICAO #### [facility] [address] [place], [place] 6407383 Top Inventory Control Executive: Tami iVllanueva MD Potassium [Moles/Vol] 3.9 mmol/L Normal 3.7-5.3 [facility] Comment on above: Performed By: #### U HCG, UAX, UMICAO #### [address] [place], [place] 3140083 Top Inventory Control Executive: Tami Villanueva MD Protein [Mass/Vol] 6.3 g/dL Low 6.4-8.3 [facility] Comment on above: Performed By: #### U HCG, UAX, UMICAO #### [address] [place], [place] 3387183 Top Inventory Control Executive: Tami Villanueva MD Sodium [Moles/Vol] 138 mmol/L Normal 135-144 [facility] Comment on above: Performed By: #### U HCG, UAX, UMICAO #### [address] [place], [place] 7465183 Top Inventory Control Executive: Tami Villanueva MD Staging: Normal [facility] Comment on above: Result Comment: Stag e 1: Some kidney damage normal GFR Stage 2: Mild kidney damage GFR 60-89 Stage 3: Moderate kidney damage GFR 30-59 Stage 4: Severe kidney damage GFR 15-29 Stage 5: Severe kidney damage GFR <15 ESRD - chronic treatment by dialysis or transplant Performed By: #### U HCG, UAX, UMICAO #### [facility] [address] [place] [address] Top Inventory Control Executive: Tami Villanueva MD Urea nitrogen [Mass/Vol] 15 mg/dL Normal 6-20 [facility] Comment on above: Performed By: #### U HCG, UAX, UMICAO #### [facility] [address] [place] [address] Top Inventory Control Executive: Tami Villanueva MD Comprehensive Metabolic Pane carlos 08-16-2021 Albumin [Mass/Vol] 3.7 g/dL 3.5 - 5.2 g/dL [facility] Albumin/Globulin [Mass ratio] 1.4 {ratio} [facility] ALP (Bld) [Catalytic activity/Vol] 46 U/L 35 - 104 U/L [facility] ALT [Catalytic activity/Vol] 12 U/L 5 - 33 U/L [facility] Anion gap [Moles/Vol] 10 mmol/L 9 - 17 mmol/L [facility] AST [Catalytic activity/Vol] 13 U/L <32 [facility] Bilirubin [Mass/Vol] mg/dL Low 0.3 - 1 .2 mg/dL [facility] Calcium [Mass/Vol] 8.9 mg/dL 8.6 - 10. 4 mg/dL [facility] Chloride [Moles/Vol] 105 mmol/L 98 - 10 7 mmol/L [facility] CO2 [Moles/Vol] 23 mmol/L 20 - 31 mmol/L [facility] Creatinine [Mass/Vol] 0.6 mg/dL 0.50 - 0.90 mg/dL [facility] Free PSA/Total PSA [Mass fraction] 6.3 g/dL Low 6.4 - 8.3 g/dL [facility] GFR >60 >60 mL/min [facility] GFR Non- >60 >60 mL/min [facility] Glucose [Mass/Vol] 93 mg/dL 70 - 99 mg/dL [facility] Interpretation and review of laboratory results Abnormal [facility] Potassium [Moles/Vol] 3.9 mmol/L 3.7 - 5.3 mmol/L [facility] Sodium [Moles/Vol] 138 mmol/L 135 - 144 mmol/L [facility] Urea nitrogen (BldV) [Mass/Vol] 15 mg/dL 6 - 20 mg/dL [facility] Urea nitrogen/Creatinine (Bld) [Mass ratio] 25 High [facility] HIV Ag/Abon 08-16-2021 HIV Ag/Ab Non-Reactive Normal NR [facility] Comment on above: Result Comment: No l aboratory evidence of HIV infection. If acute HIV infection is suspected, consider testing for HIV-1 RNA. Performed By: #### U HCG, UAX, UMICAO #### [facility] [address] [place] [address] [place] [address] Top Inventory Control Executive: Tami Villanueva MD HIV Screenon 08-16-2021 HIV Ag/Ab Non-Reactive NONREACTIVE [facility] Comment on above: No laboratory eviden ce of HIV infection. If acute HIV infection is suspected, consider testing for HIV-1 RNA. [facility] Hepatitis Acute Steve 08-16 Hep A Ab,IgM Non-Reactive Normal [facility] Comment on above: Performed By: #### U HCG, UAX, UMICAO #### [facility] [address] [place] [address] [address]. [place], [place] [phone] Top Inventory Control Executive: Tami Villanueva MD Hep B Core Ab,IgM Non-Reactive Normal [facility] Comment on above: Performed By: #### U HCG, UAX, UMICAO #### [facility] [address] [place] [address] [place] [address] Top Inventory Control Executive: Tami Villanueva MD Hep B Surf Ag Non-Reactive Normal [facility] Comment on above: Performed By: #### U HCG, UAX, UMICAO #### [facility] [address] [place] [address] Top Inventory Control Executive: Tami Villanueva MD Hep C Ab Non-Reactive Normal [facility] Comment on above: Result Comment: The hepatitis [...] By: #### U HCG, UAX, UMICAO #### [facility] [address] [place] [address] Top Inventory Control Executive: Tami Villanueva MD Hepatitis Panel, Acuteon HAV IgM IA Qn (S) Non-Reactive NONREACTIVE [facility] Hep B Core Ab, IgM Non-Reactive NONREACTIVE [facility] Hepatitis B Surface Ag Non-Reactive NONREACTIVE [facility] [employer] Hepatitis C Ab Non-Reactive NONREACTIVE [facility] Comment on above: The hepatitis [...] recommended by ordering HCV RNA by PCR. [facility] and C hemistry - challengeon 08-16-2021 GFR/1.73 sq M.predicted MDRD (S/P/Bld) [Vol rate/Area] [facility] Comment on above: Average GFR for 30-3 9 years old: 107 mL/min/1.73sq m Chronic Kidney Disease: <60 mL/min/1.73sq m Kidney failure: <15 mL/min/1.73sq m eGFR calculated using average adult body mass. Additional eGFR calculator available at: http://www.[employer]/multiple_crcl_2012.htm Stage 1: Some kidney damage normal GFR Stage 2: Mild kidney damage GFR 60-89 Stage 3: Moderate kidney damage GFR 30-59 Stage 4: Severe kidney damage GFR 15-29 Stage 5: Severe kidney damage GFR <15 ESRD - chronic treatment by dialysis or transplant Microscopic Urinalysison - [employer] [facility] Bacteria, UA 2+ Abnormal None [facility] Epithelial Cells UA 5 TO 10 [facility] Interpretation and review of laboratory results Abnormal [facility] RBC (U) [#/Vol] 100 /[facility], [facility]A 5 TO 10 [facility] Urinalysison 08-16-2021 Bilirubin Urine INTERPRET WITH CAUTI ON DUE TO INTENSE COLOR OF URINE. Abnormal NEGATIVE [facility] Color, UA Red Abnormal Yellow [facility] Glucose, Ur INTERPRET WITH CAUTI ON DUE TO INTENSE COLOR OF URINE. Abnormal NEGATIVE [facility] Interpretation and review of laboratory results Abnormal [facility] Ketones Ql (U) INTERPRET WITH CAUTI ON DUE TO INTENSE COLOR OF URINE. Abnormal NEGATIVE [facility] Leukocyte esterase Test strip Ql (U) INTERPRET WITH CAUTION DUE TO INTENSE COLOR OF URINE. Abnormal NEGATIVE [facility] Nitrite, Urine INTERPRET WITH CAUTI ON DUE TO INTENSE COLOR OF URINE. Abnormal NEGATIVE [facility] pH, UA INTERPRET WITH CAUTI ON DUE TO INTENSE COLOR OF URINE. [facility] Protein, UA INTERPRET WITH CAUTI ON DUE TO INTENSE COLOR OF URINE. Abnormal NEGATIVE [facility] Specific [place], UA 1.025 High [facility] Turbidity UA Turbid Abnormal Clear [facility] Urine Hgb INTERPRET WITH CAUTI ON DUE TO INTENSE COLOR OF URINE. Abnormal NEGATIVE [facility] Urobilinogen, Urine INTERPRET WITH CAUTI ON DUE TO INTENSE COLOR OF URINE. Abnormal Normal [facility] Urinalysis, Routineon 2021 Bilirubin, SemiQt,Ur INTERPRET WITH CAUT ION DUE TO INTENSE COLOR OF URINE. Abnormal NEG [facility] Comment on above: Performed By: #### U HCG, UAX, UMICAO #### [facility] [address] [place] [address] [place]. [place] [phone] Top Inventory Control Executive: Tami Villanueva MD Blood, Urine INTERPRET WITH CAUTI ON DUE TO INTENSE COLOR OF URINE. Abnormal NEG [facility] Comment on above: Performed By: #### U HCG, UAX, UMICAO #### [facility] [address] [place] [address] Dr. [place] [phone] Top Inventory Control Executive: Tami Villanueva MD Clarity (U) Turbid Abnormal CLEAR [facility] Comment on above: Performed By: #### U HCG, UAX, UMICAO #### [facility] [address] [place] [address] Dr. [place] [phone] Top Inventory Control Executive: Tami Villanueva MD Color (U) Red Abnormal YEL [facility] Comment on above: Performed By: #### U HCG, UAX, UMICAO #### [address] [place], [place] [phone] Top Inventory Control Executive: Tami Villanueva MD Glucose Ql (U) INTERPRET WITH CAUTI ON DUE TO INTENSE COLOR OF URINE. Abnormal NEG [facility] Comment on above: Performed By: #### U HCG, UAX, UMICAO #### [address] [place] [phone] Top Inventory Control Executive: Tami Villanueva MD Ketones Ql (U) INTERPRET WITH CAUTI ON DUE TO INTENSE COLOR OF URINE. Abnormal NEG [facility] Comment on above: Performed By: #### U HCG, UAX, UMICAO #### [address] [place] [phone] Top Inventory Control Executive: Tami Villanueva MD Leukocyte esterase Test strip Ql (U) INTERPRET WITH CAUTION DUE TO INTENSE COLOR OF URINE. Abnormal NEG [facility] Comment on above: Performed By: #### U HCG, UAX, UMICAO #### [address] [place] [phone] Top Inventory Control Executive: Tami Villanueva MD Nitrite,Ur INTERPRET WITH CAUTI ON DUE TO INTENSE COLOR OF URINE. Abnormal [facility] Comment on above: Performed By: #### U HCG, UAX, UMICAO #### [address] [place] [phone] Top Inventory Control Executive: Tami Villanueva MD PH,Ur INTERPRET WITH CAUTI ON DUE TO INTENSE COLOR OF URINE. Normal 5.0-9.0 [facility] Comment on above: Performed By: #### U HCG, UAX, UMICAO #### [address] [place] [address] Top Inventory Control Executive: Tami Villanueva MD Protein Ql (U) INTERPRET WITH CAUTI ON DUE TO INTENSE COLOR OF URINE. Abnormal NEG [facility] Comment on above: Performed By: #### U HCG, UAX, UMICAO #### [facility] [address] [place], [place] [phone] Top Inventory Control Executive: Tami Villanueva MD Spec. [place],Ur 1.025 High 1.010-1.020 [facility] Comment on above: Performed By: #### U HCG, UAX, UMICAO #### [facility] [address] [place], [place] [phone] Top Inventory Control Executive: Tami Villanueva MD Urobilinogen,Ur INTERPRET WITH CAUTI ON DUE TO INTENSE COLOR OF URINE. Abnormal NORM [facility] Comment on above: Performed By: #### U HCG, UAX, UMICAO #### [facility] [address] [place], [place] [phone] Top Inventory Control Executive: Tami Villanueva MD Urinalysis,Microon 2 ----- Normal [facility] Comment on above: Performed By: #### U HCG, UAX, UMICAO #### [facility] [address] [place], [place] [phone] Top Inventory Control Executive: Tami Villanueva MD Bacteria 2+ Abnormal NONE [facility] Comment on above: Performed By: #### U HCG, UAX, UMICAO #### [facility] [address] [place] [address] Top Inventory Control Executive: Tami Villanueva MD Epithelial cells LM Ql (Urine sed) 5 TO 10 Normal 0-25 [facility] Comment on above: Performed By: #### U HCG, UAX, UMICAO #### [facility] [address] [place], [place] [phone] Top Inventory Control Executive: Tami Villanueva MD Urine RBC's GREATER THAN 100 Normal 0-2 [facility] Comment on above: Performed By: #### U HCG, UAX, UMICAO #### [facility] [address] [place], [place] [phone] Top Inventory Control Executive: Tami Villanueva MD Urine WBC's 5 TO 10 Normal 0-5 [facility] Comment on above: Performed By: #### U HCG, UAX, UMICAO #### [facility] [address] [place], [place] [phone] Top Inventory Control Executive: Tami Villanueva MD Basic Metabolic Profon 08-10 (cont.) Normal [facility] Comment on above: Result Comment: Aver age GFR for 30-39 years old: 107 mL/min/1.73sq m Chronic Kidney Disease: <60 mL/min/1.73sq m Kidney failure: <15 mL/min/1.73sq m eGFR calculated using average adult body mass. Additional eGFR calculator available at: http://www.[employer]/multiple_crcl_2012.htm Performed By: #### B MP #### [facility] [address] [place] [address] Top Inventory Control Executive: Bib Morin DO Anion gap [Moles/Vol] 11 mmol/L Normal 9-17 [facility] Comment on above: Performed By: #### B MP #### [facility] [place] [address] Top Inventory Control Executive: Bib Morin DO Calcium [Mass/Vol] 9.3 mg/dL Normal 8.6-10.4 [facility] Comment on above: Performed By: #### B MP #### [facility] [address] [place] [address] Top Inventory Control Executive: Bib Morin DO Chloride [Moles/Vol] 103 mmol/L Normal 98-107 [facility] Comment on above: Performed By: #### B MP #### [facility] [place] [address] Top Inventory Control Executive: Bib Morin DO CO2 [Moles/Vol] 23 mmol/L Normal 20-31 [facility] Comment on above: Performed By: #### B MP #### [facility] [address] [place] [address] Top Inventory Control Executive: Bib Morin DO Creatinine [Mass/Vol] 0.64 mg/dL Normal 0.50-0.90 [facility] Comment on above: Performed By: #### B MP #### [facility] [address] [place] [address] Top Inventory Control Executive: Bib Morin DO GFR, Amer >60 Normal >60 [facility] Comment on above: Performed By: #### B MP #### [facility] [address] [place] [address] Top Inventory Control Executive: Bib Morin DO GFR,non Amer >60 Normal >60 [facility] Comment on above: Performed By: #### B MP #### [facility] [address] [place] [address] Top Inventory Control Executive: Bib Morin DO Glucose [Mass/Vol] 140 mg/dL High 70-99 [facility] Comment on above: Performed By: #### B MP #### [facility] [address] [place] [address] Top Inventory Control Executive: Bib Morin DO Potassium [Moles/Vol] 4.3 mmol/L Normal 3.7-5.3 [facility] Comment on above: Performed By: #### B MP #### [facility] [address] [place] [address] Top Inventory Control Executive: Bib Morin DO Sodium [Moles/Vol] 137 mmol/L Normal 135-144 [facility] Comment on above: Performed By: #### B MP #### [facility] [address] [place] [address] Top Inventory Control Executive: Bib Morin DO Urea nitrogen [Mass/Vol] 10 mg/dL Normal 6-20 [facility] Comment on above: Performed By: #### B MP #### [facility] [address] [place] [address] Top Inventory Control Executive: Bib Morin DO Comp Metabolic Profon 2021 (cont.) Normal [facility] Comment on above: Result Comment: Aver age GFR for 30-39 years old: 107 mL/min/1.73sq m Chronic Kidney Disease: <60 mL/min/1.73sq m Kidney failure: <15 mL/min/1.73sq m eGFR calculated using average adult body mass. Additional eGFR calculator available at: http://www.[employer]/multiple_crcl_2011.htm Performed By: #### C P #### [facility] [address] [place] [address] Top Inventory Control Executive: Bib Morin DO Albumin [Mass/Vol] 4.1 g/dL Normal 3.5-5.2 [facility] Comment on above: Performed By: #### C P #### [facility] [address] [place] [address] Top Inventory Control Executive: Bib Morin DO Alkaline Phos 47 U/L Normal 35-104 [facility] Comment on above: Performed By: #### C P #### [facility] [address] [place] [address] Top Inventory Control Executive: Bib Morin DO ALT [Catalytic activity/Vol] 14 U/L Normal 5-33 [facility] Comment on above: Performed By: #### C P #### [facility] [address] [place] [address] Top Inventory Control Executive: Bib Morin DO Anion gap [Moles/Vol] 9 mmol/L Normal 9-17 [facility] Comment on above: Performed By: #### C P #### [facility] [address] [place] [address] Top Inventory Control Executive: Bib Morin DO AST [Catalytic activity/Vol] 25 U/L Normal <32 [facility] Comment on above: Performed By: #### C P #### [facility] [address] [place] [address] Top Inventory Control Executive: Bib Morin DO Bilirubin [Mass/Vol] 0.26 mg/dL Low 0.3-1.2 [facility] Comment on above: Performed By: #### C P #### [facility] [address] [place] [address] Top Inventory Control Executive: Bib Morin DO Calcium [Mass/Vol] 9.4 mg/dL Normal 8.6-10.4 [facility] Comment on above: Performed By: #### C P #### [facility] [address] [place] [address] Top Inventory Control Executive: Bib Morin DO Chloride [Moles/Vol] 104 mmol/L Normal 98-107 [facility] Comment on above: Performed By: #### C P #### [facility] [facility] [place] [address] Top Inventory Control Executive: Bib Morin DO CO2 [Moles/Vol] 23 mmol/L Normal 20-31 [facility] Comment on above: Performed By: #### C P #### [facility] [place] [address] Top Inventory Control Executive: Bib Morin DO Creatinine [Mass/Vol] 0.67 mg/dL Normal 0.50-0.90 [facility] Comment on above: Performed By: #### C P #### [facility] [address] [place] [address] Top Inventory Control Executive: Bib Morin DO GFR, Amer >60 Normal >60 [facility] Comment on above: Performed By: #### C P #### [facility] [address] [place] [address] Top Inventory Control Executive: Bib Morin DO GFR,non Amer >60 Normal >60 [facility] Comment on above: Performed By: #### C P #### [facility] [address] [place] [address] Top Inventory Control Executive: Bib Morin DO Glucose [Mass/Vol] 91 mg/dL Normal 70-99 [facility] Comment on above: Performed By: #### C P #### [facility] [address] [place] [address] Top Inventory Control Executive: Bib Morin DO Potassium [Moles/Vol] 4.3 mmol/L Normal 3.7-5.3 [facility] Comment on above: Performed By: #### C P #### [facility] [address] [place] [address] Top Inventory Control Executive: Bib Morin DO Protein [Mass/Vol] 6.5 g/dL Normal 6.4-8.3 [facility] Comment on above: Performed By: #### C P #### [facility] [address] [place] [address] Top Inventory Control Executive: Bib Morin DO Sodium [Moles/Vol] 136 mmol/L Normal 135-144 [facility] Comment on above: Performed By: #### C P #### [facility] [address] [place] [address] Top Inventory Control Executive: Bib Morin DO Urea nitrogen [Mass/Vol] 10 mg/dL Normal 6-20 [facility] Comment on above: Performed By: #### C P #### [facility] [address] [place] [address] Top Inventory Control Executive: Bib Morin DO Lithiumon 08-08-2021 [place] [Moles/Vol] mmol/L Low 0.6-1.2 [facility] Comment on above: Performed By: #### L IC #### [facility] [address] [place] [address] Top Inventory Control Executive: Cj Cruz MD Acetaminophenon 08-07-2021 Acetaminophen [Mass/Vol] ug/mL Low 10-30 [facility] Comment on above: Performed By: #### A CET #### [facility] [address] [place] [address] Top Inventory Control Executive: Tami Villanueva MD Acetaminophen Levelon 2021 Acetaminophen Level <5 Low 10 - 30 ug/mL [facility] Interpretation and review of laboratory results Abnormal [facility] Basic Metab w/rfx MGon 08-07 Potassium [Moles/Vol] 2.9 mmol/L Critically low 3.7-5.3 [facility] Comment on above: Performed By: #### C DP, BMPX, MG #### [facility] [address] [place] [address] Top Inventory Control Executive: Tami Villanueva MD (cont.) Normal [facility] Comment on above: Result Comment: Aver age GFR for 30-39 years old: 107 mL/min/1.73sq m Chronic Kidney Disease: <60 mL/min/1.73sq m Kidney failure: <15 mL/min/1.73sq m eGFR calculated using average adult body mass. Additional eGFR calculator available at: http://www.[employer]/multiple_crcl_2012.htm Performed By: #### C DP, BMPX, MG #### [facility] [address] [place] [phone] Top Inventory Control Executive: Tami Villanueva MD Anion gap [Moles/Vol] 9 mmol/L Normal 9-17 [facility] Comment on above: Performed By: #### C DP, BMPX, MG #### [facility] [address] [place], [place] [phone] Top Inventory Control Executive: Tami Villanueva MD BUN/CRE Ratio 17 Normal 9-20 [facility] Comment on above: Performed By: #### C DP, BMPX, MG #### [facility] [address] [place], [place] [phone] Top Inventory Control Executive: Tami Villanueva MD Calcium [Mass/Vol] 9.5 mg/dL Normal 8.6-10.4 [facility] Comment on above: Performed By: #### C DP, BMPX, MG #### [facility] [address] [place], [place] [phone] Top Inventory Control Executive: Tami Villanueva MD Chloride [Moles/Vol] 102 mmol/L Normal 98-107 [facility] Comment on above: Performed By: #### C DP, BMPX, MG #### [facility] [address] [place], [place] [phone] Top Inventory Control Executive: Tami Villanueva MD CO2 [Moles/Vol] 28 mmol/L Normal 20-31 [facility] Comment on above: Performed By: #### C DP, BMPX, MG #### [facility] [address] [place], [place] [phone] Top Inventory Control Executive: Tami Villanueva MD Creatinine [Mass/Vol] 0.70 mg/dL Normal 0.50-0.90 [facility] Comment on above: Performed By: #### C DP, BMPX, MG #### [facility] [address] [place], [place] [phone] Top Inventory Control Executive: Tami Villanueva MD GFR, Amer >60 Normal >60 [facility] Comment on above: Performed By: #### C DP, BMPX, MG #### [facility] [address] [place] [address] Top Inventory Control Executive: Tami Villanueva MD GFR,non Amer >60 Normal >60 [facility] Comment on above: Performed By: #### C DP, BMPX, MG #### [facility] [address] [place], [place] 1905783 Top Inventory Control Executive: Tami Villanueva MD Glucose [Mass/Vol] 56 mg/dL Low 70-99 [facility] Comment on above: Performed By: #### C DP, BMPX, MG #### [facility] [address] [place], [place] [phone] Top Inventory Control Executive: Tami Villanueva MD Sodium [Moles/Vol] 139 mmol/L Normal 135-144 [facility] Comment on above: Performed By: #### C DP, BMPX, MG #### [facility] [address] [place], [place] [phone] Top Inventory Control Executive: Tami Villanueva MD Staging: Normal [facility] Comment on above: Result Comment: Stag e 1: Some kidney damage normal GFR Stage 2: Mild kidney damage GFR 60-89 Stage 3: Moderate kidney damage GFR 30-59 Stage 4: Severe kidney damage GFR 15-29 Stage 5: Severe kidney damage GFR <15 ESRD - chronic treatment by dialysis or transplant Performed By: #### C DP, BMPX, MG #### [facility] [address] [place], [place] [phone] Top Inventory Control Executive: Tami Villanueva MD Urea nitrogen [Mass/Vol] 12 mg/dL Normal 6-20 [facility] Comment on above: Performed By: #### C DP, BMPX, MG #### [facility] [address] [place] [address] Top Inventory Control Executive: Tami Villanueva MD Basic Metabolic Panel w/ Ref ludy to MGon 08-07-2021 Anion gap [Moles/Vol] 9 mmol/L 9 - 17 mmol/L [facility] Calcium [Mass/Vol] 9.5 mg/dL 8.6 - 10. 4 mg/dL [facility] Chloride [Moles/Vol] 102 mmol/L 98 - 10 7 mmol/L [facility] CO2 [Moles/Vol] 28 mmol/L 20 - 31 mmol/L [facility] Creatinine [Mass/Vol] 0.7 mg/dL 0.50 - 0.90 mg/dL [facility] GFR >60 >60 mL/min [facility] GFR Non- >60 >60 mL/min [facility] Glucose [Mass/Vol] 56 mg/dL Low 70 - 99 mg/dL [facility] Interpretation and review of laboratory results Abnormal [facility] Potassium [Moles/Vol] 2.9 mmol/L Critically low 3.7 - 5.3 mmol/L [facility] Sodium [Moles/Vol] 139 mmol/L 135 - 144 mmol/L [facility] Urea nitrogen (BldV) [Mass/Vol] 12 mg/dL 6 - 20 mg/dL [facility] Urea nitrogen/Creatinine (Bld) [Mass ratio] 17 [facility] CBC with Auto Differentialon 08-07-2021 Absolute Eos # 0.11 [facility] th Absolute Immature Granulocyte <0.03 [facility] Absolute Lymph # 1.45 [facility] alth Absolute [place] # 0.43 [facility] lt Basophils (Bld) [#/Vol] 0.06 10*3/uL [facility] Basophils/100 WBC (Bld) 1 % 0 - 2 % [facility] Eosinophils/100 WBC (Bld) 2 % 1 - 4 % [facility] Hematocrit (Bld) [Volume fraction] 39.9 % 36.3 - 47.1 % [facility] Hemoglobin.gastrointes tinal spec 1 Ql (Stl) 12.7 g/dL 11.9 - 15.1 g/dL [facility] Immature granulocytes/100 WBC (Bld) 0 % 0 [facility] Interpretation and review of laboratory results Abnormal [facility] Lymphocytes/100 WBC (Bld) 31 % 24 - 43 % [facility] MCH (RBC) [Entitic mass] 28.0 pg 25.2 - 33.5 pg [facility] MCHC (RBC) [Mass/Vol] 31.8 g/dL 28.4 - 34.8 g/dL [facility] MCV (RBC) [Entitic vol] 88.1 fL 82.6 - 102.9 fL [facility] Monocytes/100 WBC (Bld) 9 % 3 - 12 % [facility] NRBC Automated 0.0 0.0 per 100 WBC [facility] Platelet distribution width (Bld) [Ratio] 17.2 % High 11.8 - 14.4 % [facility] Platelet mean volume (Bld) [Entitic vol] 10.3 fL 8.1 - 13.5 fL [facility] Platelets (Bld) [#/Vol] 269 10*3/uL [facility] RBC (Bld) [#/Vol] 4.53 10*6/uL 3.95 - 5.1 1 m/uL [facility] Segmented neutrophils/100 WBC (Bld) 57 % 36 - 65 % [facility] Segs Absolute 2.62 [facility] WBC (Bld) [#/Vol] 4.7 10*3/uL [facility] CBC with Diffon 08-07-2021 Abs. Basophil 0.06 k/uL Normal 0.00-0.20 [facility] Comment on above: Performed By: #### C DP, BMPX, MG #### [address] [place] [address] Top Inventory Control Executive: Tami Villanueva MD Abs.Imm.Granulocyte <0.03 Normal 0.00-0.30 [facility] Comment on above: Performed By: #### C DP, BMPX, MG #### [address] [place], [place] [id number] Top Inventory Control Executive: Tami Villanueva MD Abs.Neutrophil (Seg) 2.62 k/uL Normal 1.50-8.10 [facility] Comment on above: Performed By: #### C DP, BMPX, MG #### [address] [place], [place] [id number] Top Inventory Control Executive: Tami Villanueva MD Basophils/100 WBC (Bld) 1 % Normal 0-2 [facility] Comment on above: Performed By: #### C DP, BMPX, MG #### [facility] [address] [place] [address] Dr. [place], [place] [phone] Top Inventory Control Executive: Tami Villanueva MD Eosinophils (Bld) [#/Vol] 0.11 10*3/uL Normal 0.00-0.44 [facility] Comment on above: Performed By: #### C DP, BMPX, MG #### [facility] [address] [place] [address] [place], [place] [id number] Top Inventory Control Executive: Tami Villanueva MD Eosinophils/100 WBC (Bld) 2 % Normal 1-4 [facility] Comment on above: Performed By: #### C DP, BMPX, MG #### [address] [place], [place] [id number] Top Inventory Control Executive: Tami Villanueva MD Erythrocyte distribution width (RBC) [Ratio] 17.2 % High 11.8-14.4 [facility] Comment on above: Performed By: #### C DP, BMPX, MG #### [address] [place], [place] [phone] Top Inventory Control Executive: Tami Villanueva MD Hematocrit (Bld) [Volume fraction] 39.9 % Normal 36.3-47.1 [facility] Comment on above: Performed By: #### C DP, BMPX, MG #### [address] [place], [place] [phone] Top Inventory Control Executive: Tami Villanueva MD Hemoglobin (Bld) [Mass/Vol] 12.7 g/dL Normal 11.9-15.1 [facility] Comment on above: Performed By: #### C DP, BMPX, MG #### [address] [place] [address] Top Inventory Control Executive: Tami Villanueva MD Immature granulocytes/100 WBC (Bld) 0 % Normal 0 [facility] Comment on above: Performed By: #### C DP, BMPX, MG #### [facility] [address] [place], [place] [phone] Top Inventory Control Executive: Tami Villanueva MD Lymphocytes (Bld) [#/Vol] 1.45 10*3/uL Normal 1.10-3.70 [facility] Comment on above: Performed By: #### C DP, BMPX, MG #### [facility] [address] [place], [facility]83 Top Inventory Control Executive: Tami Villanueva MD Lymphocytes/100 WBC (Bld) 31 % Normal 24-43 [facility] Comment on above: Performed By: #### C DP, BMPX, MG #### [facility] [address] [place], [place] [phone] Top Inventory Control Executive: Tami Villanueva MD MCH (RBC) [Entitic mass] 28.0 pg Normal 25.2-33.5 [facility] Comment on above: Performed By: #### C DP, BMPX, MG #### [facility] [address] [place], [place] [phone] Top Inventory Control Executive: Tami Villanueva MD MCHC (RBC) [Mass/Vol] 31.8 g/dL Normal 28.4-34.8 [facility] Comment on above: Performed By: #### C DP, BMPX, MG #### [address] [place], [facility]83 Top Inventory Control Executive: Tami Villanueva MD MCV (RBC) [Entitic vol] 88.1 fL Normal 82.6-102.9 [facility] Comment on above: Performed By: #### C DP, BMPX, MG #### [facility] [address] [place] [address] Top Inventory Control Executive: Tami Villanueva MD Monocytes (Bld) [#/Vol] 0.43 10*3/uL Normal 0.10-1.20 [facility] Comment on above: Performed By: #### C DP, BMPX, MG #### [facility] [address] [place], [facility] Top Inventory Control Executive: Tami Villanueva MD Monocytes/100 WBC (Bld) 9 % Normal 3-12 [facility] Comment on above: Performed By: #### C DP, BMPX, MG #### [facility] [address] [place], [facility] Top Inventory Control Executive: Tami Villanueva MD Neutrophil (Seg) 57 % Normal 36-65 [facility] Comment on above: Performed By: #### C DP, BMPX, MG #### [facility] [address] [place], [facility] Top Inventory Control Executive: Tami Villanueva MD NRBC Automated 0.0 per 100 WBC Normal 0.0 [facility] Comment on above: Performed By: #### C DP, BMPX, MG #### [facility] [address] [place], [facility]83 Top Inventory Control Executive: Tami Villanueva MD Platelet mean volume (Bld) [Entitic vol] 10.3 fL Normal 8.1-13.5 [facility] Comment on above: Performed By: #### C DP, BMPX, MG #### [address] [place], [place] [address] Top Inventory Control Executive: Tami Villanueva MD Platelets (Bld) [#/Vol] 269 10*3/uL Normal 138-453 [facility] Comment on above: Performed By: #### C DP, BMPX, MG #### [address] [place], [facility]83 Top Inventory Control Executive: Tami Villanueva MD RBC (Bld) [#/Vol] 4.53 10*6/uL Normal 3.95-5.11 [facility] Comment on above: Performed By: #### C DP, BMPX, MG #### [facility] [address] [place] [address] Top Inventory Control Executive: Tami Villanueva MD WBC (Bld) [#/Vol] 4.7 10*3/uL Normal 3.5-11.3 [facility] Comment on above: Performed By: #### C DP, BMPX, MG #### [facility] [address] [place] [address] Top Inventory Control Executive: Tami Villanueva MD COVID-19, Rapidon 08-07-2021 SARS-CoV-2 (COVID-19) RNA AMARA+probe Ql (Unsp spec) Not detected Not Detected [facility] Comment on above: Rapid NAAT: The specimen [...] management decisions. Fact sheet for Healthcare Providers: https://www.fda.gov/media/878565/download Fact sheet for Patients: https://www.fda.gov/media/678307/download Methodology: Isothermal Nucleic Acid Amplification Specimen Description .NASOPHARYNGEAL SWAB [facility] HCG, ,Urineon 08-07 Beta HCG ( test) Ql (U) Negative Normal NEG [facility] Comment on above: Result Comment: Spec imens with hCG levels near the threshold of the test (25 mIU/mL) may give a negative or indeterminate result. In such cases, another test should be performed with a new specimen in 48-72 hours. If early is suspected clinically in this setting, correlation with quantitative serum b-hCG level is suggested. [employer] has confirmed the use of plasma for this test. This has not been cleared or approved by the U.S. Food and Drug Administration. The FDA has determined that such clearance is not necessary. Performed By: #### U HCG, UAXBHARAT #### [facility] [address] [place] [address] Top Inventory Control Executive: Tami Villanueva MD Laboratory - Chemistry and C hemistry - challengeon 08-07-2021 GFR/1.73 sq M.predicted MDRD (S/P/Bld) [Vol rate/Area] [facility] Comment on above: Average GFR for 30-3 9 years old: 107 mL/min/1.73sq m Chronic Kidney Disease: <60 mL/min/1.73sq m Kidney failure: <15 mL/min/1.73sq m eGFR calculated using average adult body mass. Additional eGFR calculator available at: http://www.[employer]id[employer]/multiple_crcl_2012.htm Stage 1: Some kidney damage normal GFR Stage 2: Mild kidney damage GFR 60-89 Stage 3: Moderate kidney damage GFR 30-59 Stage 4: Severe kidney damage GFR 15-29 Stage 5: Severe kidney damage GFR <15 ESRD - chronic treatment by dialysis or transplant Magnesiumon 08-07-2021 Magnesium [Mass/Vol] 2.1 mg/dL Normal 1.6-2.6 [facility] Comment on above: Performed By: #### U HCG, UAX, BHARAT #### [facility] [address] [place] [address] Top Inventory Control Executive: Tami Villanueva MD Magnesium [Mass/Vol] 2.1 mg/dL 1.6 - 2 .6 mg/dL [facility] Microscopic Urinalysison - [facility] Bacteria, UA 1+ Abnormal None [facility] Epithelial Cells UA 0 TO 2 [facility] Interpretation and review of laboratory results Abnormal [facility] RBC, UA 0 TO 2 [facility] WBC, UA 2 TO 5 [facility] , Urineon 2 Beta HCG ( test) Ql (U) Negative NEGATIVE [facility] Comment on above: Specimens with hCG l evels near the threshold of the test (25 mIU/mL) may give a negative or indeterminate result. In such cases, another test should be performed with a new specimen in 48-72 hours. If early is suspected clinically in this setting, correlation with quantitative serum b-hCG level is suggested. [facility] has confirmed the use of plasma for this test. This has not been cleared or approved by the U.S. Food and Drug Administration. The FDA has determined that such clearance is not necessary. [facility] [id number] 08-07-2021 SARS-CoV-2 (COVID-19) RNA AMARA+probe Ql (Unsp spec) Not detected Normal NOTDET [facility] Comment on above: Result Comment: Rapid [...] management decisions. Fact sheet for Healthcare Providers: https://www.fda.gov/media/229282/download Fact sheet for Patients: https://www.fda.gov/media/863761/download Methodology: Isothermal Nucleic Acid Amplification Performed By: #### C OVRB #### [facility] [address] [place] [address] Top Inventory Control Executive: Tami Villanueva MD Salicylateon 08-07-2021 Salicylate <1 Low 3-10 [facility] Comment on above: Performed By: #### U HCG, UAX, UMICAO #### [facility] [address] [place] [address] Top Inventory Control Executive: Tami Villanueva MD Interpretation and review of laboratory results Abnormal [facility] Salicylate Lvl <1 Low 3 - 10 mg/dL [facility] He alth [facility] TSH w/reflex to FT4on 2021 TSH Qn 0.99 m[IU]/L Normal 0.30-5.00 [facility] Comment on above: Performed By: #### T SHX #### [facility] [address] [place], [place] [phone] Top Inventory Control Executive: Tami Villanueva MD TSH with Reflexon 08-07-2021 TSH Qn 0.99 m[IU]/L [facility] UA w/Reflex Cultureon 2021 Bilirubin, SemiQt,Ur Negative Normal NEG [facility] Comment on above: Performed By: #### U HCG, UAX, UMICAO #### [facility] [address] [place], [place] [phone] Top Inventory Control Executive: Tami Villanueva MD Blood, Urine Negative Normal NEG [facility] Comment on above: Performed By: #### U HCG, UAX, UMICAO #### [facility] [address] [place], [place] [phone] Top Inventory Control Executive: Tami Villanueva MD Clarity (U) Clear Normal CLEAR [facility] Comment on above: Performed By: #### U HCG, UAX, UMICAO #### [facility] [address] [place], [place] [phone] Top Inventory Control Executive: Tami Villanueva MD Color (U) Yellow Normal YEL [facility] Comment on above: Performed By: #### U HCG, UAX, UMICAO #### [facility] [address] [place], [place] [phone] Top Inventory Control Executive: Tami Villanueva MD Glucose Ql (U) Negative Normal NEG [facility] Comment on above: Performed By: #### U HCG, UAX, UMICAO #### [facility] [address] [place] [address] Top Inventory Control Executive: Tami Villanueva MD Ketones Ql (U) Negative Normal NEG [facility] Comment on above: Performed By: #### U HCG, UAX, UMICAO #### [facility] [address] [place], [place] [phone] Top Inventory Control Executive: Tami Villanueva MD Leukocyte esterase Test strip Ql (U) SMALL Abnormal NEG [facility] Comment on above: Performed By: #### U HCG, UAX, UMICAO #### [facility] [address] [place], [place] [phone] Top Inventory Control Executive: Tami Villanueva MD Nitrite,Ur Negative Normal NEG [facility] Comment on above: Performed By: #### U HCG, UAX, UMICAO #### [facility] [address] [place] [address] [place] [address] Top Inventory Control Executive: Tami Villanueva MD PH,Ur 6.0 Normal 5.0-9.0 [facility] Comment on above: Performed By: #### U HCG, UAX, UMICAO #### [facility] [address] [place] [address] Dr. [place], [facility] Top Inventory Control Executive: Tami Villanueva MD Protein Ql (U) Negative Normal NEG [facility] Comment on above: Performed By: #### U HCG, UAX, UMICAO #### [facility] [address] [place] [address] Dr. [place], [facility]83 Top Inventory Control Executive: Tami Villanueva MD Spec. [place],Ur <1.005 Low 1.010-1.020 [facility] Comment on above: Performed By: #### U HCG, UAX, UMICAO #### [facility] [address] [place] [address] [place]. [place], [place] [phone] Top Inventory Control Executive: Tami Villanueva MD Urobilinogen,Ur Normal Normal NORM [facility] Comment on above: Performed By: #### U HCG, UAX, UMICAO #### [facility] [address] [place] [address] Top Inventory Control Executive: Tami Villanueva MD Urinalysis with Reflex to Cu ltureon 08-07-2021 Bilirubin Urine [facility] Color, UA Yellow Yellow [facility] Glucose, Ur Negative NEGATIVE [facility] Interpretation and review of laboratory results Abnormal [facility] Ketones Ql (U) Negative NEGATIVE [facility] Leukocyte esterase Test strip Ql (U) SMALL Abnormal NEGATIVE [facility] Nitrite, Urine Negative NEGATIVE [facility] pH, UA 6.0 [facility] Protein, UA Negative NEGATIVE [facility] Specific [place], UA <1.005 Low [facility] Turbidity UA Clear Clear [facility] Urine Hgb Negative NEGATIVE [facility] Urobilinogen, Urine Normal Normal [facility] Urinalysis,Microon 2 ----- Normal [facility] Comment on above: Performed By: #### U HCG, UAX, UMICAO #### [facility] [address] [place] [address] Top Inventory Control Executive: Tami Villanueva MD Bacteria 1+ Abnormal NONE [facility] Comment on above: Performed By: #### U HCG, UAX, UMICAO #### [facility] [address] [place] [address] [place] [address] Top Inventory Control Executive: Tami Villanueva MD Epithelial cells LM Ql (Urine sed) 0 TO 2 Normal 0-25 [facility] Comment on above: Performed By: #### U HCG, UAX, UMICAO #### [facility] [address] [place] [address] Top Inventory Control Executive: Tami Villanueva MD Urine RBC's 0 TO 2 Normal 0-2 [facility] Comment on above: Performed By: #### U HCG, UAX, UMICAO #### [facility] [address] [place] [address] Top Inventory Control Executive: Tami Villanueva MD Urine WBC's 2 TO 5 Normal 0-5 [facility] Comment on above: Performed By: #### U HCG, UAX, UMICAO #### [facility] [address] [place] [address] Top Inventory Control Executive: Tami Villanueva MD Coronavirus 2019on 1 SARS-CoV-2 (COVID-19) RNA AMARA+probe Ql (Unsp spec) Normal Negative for COVID19 (SARS CoV2) by RT-PCR or equival [facility] Comment on above: Result Comment: Nega tive for This test was developed and its performance characteristics determined by [facility] [place]. This test has been authorized by under an Emergency Use Authorization (EUA). This test has been validated in accordance with the FDA's Guidance Document Policy for Diagnostics Testing in Laboratories Certified to Perform High Complexity Testing under CLIA prior to Emergency use Authorization for Coronavirus Disease 2019 during the Public Health Emergency issued on July 27, 2019. Test performed by [facility], [facility] [place], [address] [place] [id number]. COVID19 (SARS This test was developed and its performance characteristics determined by [facility] [place]. This test has been authorized by FDA under an Emergency Use Authorization (EUA). This test has been validated in accordance with the FDA's Guidance Document Policy for Diagnostics Testing in Laboratories Certified to Perform High Complexity Testing under CLIA prior to Emergency use Authorization for Coronavirus Disease 2019 during the Public Health Emergency issued on July 27, 2019. Test performed by [facility], [facility] [place], [address], [place] [address]. CoV2) by RT-PCR This test was developed and its performance characteristics determined by [facility] [place]. This test has been authorized by FDA under an Emergency Use Authorization (EUA). This test has been validated in accordance with the FDA's Guidance Document Policy for Diagnostics Testing in Laboratories Certified to Perform High Complexity Testing under CLIA prior to Emergency use Authorization for Coronavirus Disease 2019 during the Public Health Emergency issued on July 27, 2019. Test performed by [facility], [facility], [address] [address]. or equivalent This test was developed and its performance characteristics determined by [facility] [place]. This test has been authorized by under an Emergency Use Authorization (EUA). This test has been validated in accordance with the FDA's Guidance Document Policy for Diagnostics Testing in Laboratories Certified to Perform High Complexity Testing under CLIA prior to Emergency use Authorization for Coronavirus Disease 2019 during the Public Health Emergency issued on July 27, 2019. Test performed by [facility], [facility], [address] [address]. ethod. This test was developed and its performance characteristics determined by [facility]. This test has been authorized by FDA under an Emergency Use Authorization (EUA). This test has been validated in accordance with the FDA's Guidance Document Policy for Diagnostics Testing in Laboratories Certified to Perform High Complexity Testing under CLIA prior to Emergency use Authorization for Coronavirus Disease 2019 during the Public Health Emergency issued on July 27, 2019. Test performed by [facility], [facility], [address] [place] [address]. 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 Pathology Reports Accession: Collected Date/Time: Received Date/Time: Pathologist: [id number] 07/15/2019 14:18 EST 07/16/2019 13:34 MD FREDERICK NG Final Surgical Pathology Report DIAGNOSIS: A) CERVIX, BIOPSY: CONDYLOMA AND MILD SQUAMOUS DYSPLASIA. IMMUNOPEROXIDASE STAIN FOR P16 IS NEGATIVE. B) ENDOCERVIX, CURETTAGE: MUCUS AND FRAGMENTS OF ENDOCERVICAL TISSUE WITH NO SPECIFIC PATHOLOGIC CHANGES. COMMENT: [facility] - D# [id number] CLINICAL INFORMATION: ABNORMAL PAP SMEAR OF CERVIX [...] Electronically Signed by Pathology Report verified by [facility] Electronically signed by FREDERICK ONTIVEROS MD Sign out Date: 07/19/2019 07:46 Performing Lab: [address] ([place]) Comment on above: Performed By: #### C BC, ADIFF, ANEU, APTT #### [place] [address] HPVon 06-05-2019 HPV Interp See Interp HPVN [facility] ([place]) Comment on above: Order Comment: Order placed by [id number] rule from [id number] Result Comment: High Risk HPV Typing Positive: [...] #### C BC, ADIFF, ANEU, APTT #### [place] [address] HPV Source Cervix Normal [facility] ([place]) Comment on above: Order Comment: Order placed by [id number] rule from [id number] Performed By: #### C BC, ADIFF, ANEU, APTT #### [place] [address] [employer] Reporton 2019 [employer] Report . Pathology Reports Accession: Collected Date/Time: Received Date/Time: Pathologist: [id number] 05/28/2019 11:14 EST 05/30/2019 18:00 EST MD FREDERICK ONTIVEROS [employer] Report SPECIMEN: Specimen Description: Liquid Prep Reflex ASCUS Specimen: Cervical Screening or Diagnostic: Screening RELEVANT HISTORY: LMP: Post [id number] SPECIMEN ADEQUACY: SATISFACTORY FOR EVALUATION ENDOCERVICAL/TRANSFORM ATIONAL ZONE COMPONENT PRESENT INTERPRETATION/RESULTS : ATYPICAL SQUAMOUS CELLS OF UNDETERMINED SIGNIFICANCE ADJUNCTIVE TESTING: HIGH RISK HPV DNA TESTING ORDERED, REPORT TO FOLLOW UNDER SEPARATE COVER COMMENT: This Pap Test was successfully processed and evaluated with the assistance of the [facility] ThinPrep Test Imaging System. Electronically Signed by Pathology report verified by [facility] Screened by: SAMMIE RM Electronically signed by FREDERICK ONTIVEROS MD Sign-Out Date: 06/03/2019 15:15 Performing Lab: [address] Disclaimer The Pap test is a screening test for cervical cancer. As evidenced by published data, it is subject to both inherent false negative and false positive results. Your patient's results should be interpreted in context with pertinent clinical history including gynecological examination. Normal [facility] ([place]) Comment on above: Performed By: #### C BC, ADIFF, ANEU, APTT #### [place] [address] .Auto Diffon 05-03-2019 Ammonia (P) [Mass/Vol] 0.30 10 3/mcL Normal 0.09-1.40 [facility] ([place]) Comment on above: Performed By: #### C BC, ADIFF, ANEU, APTT #### [place] [address] Basophils (Bld) [#/Vol] 0.00 10 3/mcL Normal 0.00-0.27 [facility] ([place]) Comment on above: Performed By: #### C BC, ADIFF, ANEU, APTT #### [address] [address] Basophils/100 WBC (Bld) 0.9 % Normal 0.0-2.5 [facility] ([place]) Comment on above: Performed By: #### C BC, ADIFF, ANEU, APTT #### [address] [address] Eosinophils (Bld) [#/Vol] 0.20 10 3/mcL Normal 0.00-0.65 [facility] ([place]) Comment on above: Performed By: #### C BC, ADIFF, ANEU, APTT #### [address] [address] Eosinophils/100 WBC (Bld) 3.0 % Normal 0.0-6.0 [facility] ([place]) Comment on above: Performed By: #### C BC, ADIFF, ANEU, APTT #### [address] [address] Lymphocytes (Bld) [#/Vol] 2.40 10 3/mcL Normal 0.90-4.32 [facility] ([place]) Comment on above: Performed By: #### C BC, ADIFF, ANEU, APTT #### [address] [address] Lymphocytes/100 WBC (Bld) 47.6 % High 20.0-40.0 [facility] ([place]) Comment on above: Performed By: #### C BC, ADIFF, ANEU, APTT #### [address] [address] Monocytes/100 WBC (Bld) 5.1 % Normal 2.0-13.0 [facility] ([place]) Comment on above: Performed By: #### C BC, ADIFF, ANEU, APTT #### [address] [address] Neutrophils/100 WBC (Bld) 43.4 % Low 50.0-75.0 [facility] ([place]) Comment on above: Performed By: #### C BC, ADIFF, ANEU, APTT #### [address] [address] .NEUABSon 05-03-2019 Neutrophils (Bld) [#/Vol] 2.20 10 3/mcL Low 2.25-8.10 [facility] ([place]) Comment on above: Performed By: #### C BC, ADJUANI ANEU, APTT #### [place] [address] APTTon 05-03-2019 aPTT Coag (Bld) [Time] 77.1 s High 25.0-35.0 [facility] ([place]) Comment on above: Result Comment: For Heparin anticoagulation therapy, the recommended therapeutic range is: 54-77 seconds (APTT Correlation with Anti-Xa therapeutic range of 0.3-0.7 units/ml). PLEASE REFERENCE THE PHARMACY PROTOCOL FOR DOSING. Performed By: #### C BC, ADJUANI ANEU, APTT #### [place] [address] aPTT Coag (Bld) [Time] Heparin IV Normal [facility] ([place]) Comment on above: Performed By: #### C BC, ADJUANI ANEU, APTT #### [place] [address] aPTT Coag (Bld) [Time] 74.5 s High 25.0-35.0 [facility] ([place]) Comment on above: Result Comment: For Heparin anticoagulation therapy, the recommended therapeutic range is: 54-77 seconds (APTT Correlation with Anti-Xa therapeutic range of 0.3-0.7 units/ml). PLEASE REFERENCE THE PHARMACY PROTOCOL FOR DOSING. Performed By: #### C BC, ADJUANI ANEU, APTT #### [place] [address] aPTT Coag (Bld) [Time] Heparin IV Normal [facility] ([place]) Comment on above: Performed By: #### C BC ADJUANI ANEU, APTT #### [place] [address] CBCon 05-03-2019 Erythrocyte distribution width (RBC) [Ratio] 23.6 % High 11.5-15.5 [facility] ([place]) Comment on above: Performed By: #### C BC, ADJUANI ANEU, APTT #### [address] [address] Hematocrit (Bld) [Volume fraction] 32.9 % Low 34.0-46.0 [facility] ([place]) Comment on above: Performed By: #### C BC, ADJUANI, ANEU, APTT #### [address] [address] Hemoglobin (Bld) [Mass/Vol] 10.6 G/dL Low 12.0-16.0 [facility] ([place]) Comment on above: Performed By: #### C BC, MECHELLE, ANEU, APTT #### [address] [address] MCH (RBC) [Entitic mass] 26.0 pg Low 27.0-33.0 [facility] ([place]) Comment on above: Performed By: #### C BC, MECHELLE ANEU, APTT #### [address] [address] MCHC (RBC) [Mass/Vol] 32.2 G/dL Normal 32.0-36.0 [facility] ([place]) Comment on above: Performed By: #### C PROMISE, MECHELLE, ANEU, APTT #### [place] [phone] MCV (RBC) [Entitic vol] 80.5 fL Normal 80.0-99.0 [facility] ([place]) Comment on above: Performed By: #### C BC, MECHELLE, ANEU, APTT #### [address] [address] Platelet mean volume (Bld) [Entitic vol] 8.2 fL Normal 6.6-10.5 [facility] ([place]) Comment on above: Performed By: #### C BC, ADJUANI, ANEU, APTT #### [address] [address] Platelets (Bld) [#/Vol] 247 10 3/mcL Normal 150-450 [facility] ([place]) Comment on above: Performed By: #### C BC, ADJUANI, ANEU, APTT #### [address] [address] RBC (Bld) [#/Vol] 4.08 10 6/mcL Low 4.10-5.30 [facility] ([place]) Comment on above: Performed By: #### C BC, ADJUANI, ANEU, APTT #### [address] [address] WBC (Bld) [#/Vol] 5.00 10 3/mcL Normal 4.50-10.80 [facility] ([place]) Comment on above: Performed By: #### C PROMISE, MECHELLE, ANEU, APTT #### [address] [address] .Auto Diffon 05-02-2019 Ammonia (P) [Mass/Vol] 0.30 10 3/mcL Normal 0.09-1.40 [facility] ([place]) Comment on above: Performed By: #### C PROMISE, ADJUANI, ANEU, APTT #### [address] [address] Basophils (Bld) [#/Vol] 0.10 10 3/mcL Normal 0.00-0.27 [facility] ([place]) Comment on above: Performed By: #### C PROMISE, ADJUANI, ANEU, APTT #### [address] [address] Basophils/100 WBC (Bld) 2.4 % Normal 0.0-2.5 [facility] ([place]) Comment on above: Performed By: #### C BC, ADJUANI, ANEU, APTT #### [address] [address] Eosinophils (Bld) [#/Vol] 0.10 10 3/mcL Normal 0.00-0.65 [facility] ([place]) Comment on above: Performed By: #### C BC, ADIFF, ANEU, APTT #### [address] [address] Eosinophils/100 WBC (Bld) 3.1 % Normal 0.0-6.0 [facility] ([place]) Comment on above: Performed By: #### C BC, ADIFF, ANEU, APTT #### [address] [address] Lymphocytes (Bld) [#/Vol] 1.80 10 3/mcL Normal 0.90-4.32 [facility] ([place]) Comment on above: Performed By: #### C BC, ADIFF, ANEU, APTT #### [address] [address] Lymphocytes/100 WBC (Bld) 40.1 % High 20.0-40.0 [facility] ([place]) Comment on above: Performed By: #### C BC, ADIFF, ANEU, APTT #### [address] [address] Monocytes/100 WBC (Bld) 6.1 % Normal 2.0-13.0 [facility] ([place]) Comment on above: Performed By: #### C BC, ADIFF, ANEU, APTT #### [address] [address] Neutrophils/100 WBC (Bld) 48.3 % Low 50.0-75.0 [facility] ([place]) Comment on above: Performed By: #### C BC, ADIFF, ANEU, APTT #### [address] [address] Ammonia (P) [Mass/Vol] 0.40 10 3/mcL Normal 0.09-1.40 [facility] ([place]) Comment on above: Performed By: #### C BC, ADIFF, ANEU #### [address] [address] Basophils (Bld) [#/Vol] 0.10 10 3/mcL Normal 0.00-0.27 [facility] ([place]) Comment on above: Performed By: #### C BC, ADIFF, ANEU #### [address] [address] Basophils/100 WBC (Bld) 1.5 % Normal 0.0-2.5 [facility] ([place]) Comment on above: Performed By: #### C BC, ADIFF, ANEU #### [address] [address] Eosinophils (Bld) [#/Vol] 0.10 10 3/mcL Normal 0.00-0.65 [facility] ([place]) Comment on above: Performed By: #### C BC, ADIFF, ANEU #### [address] [address] Eosinophils/100 WBC (Bld) 2.6 % Normal 0.0-6.0 [facility] ([place]) Comment on above: Performed By: #### C BC, ADIFF, ANEU #### [address] [address] Lymphocytes (Bld) [#/Vol] 2.30 10 3/mcL Normal 0.90-4.32 [facility] ([place]) Comment on above: Performed By: #### C BC, MECHELLE, ANEU #### [address] [address] Lymphocytes/100 WBC (Bld) 41.5 % High 20.0-40.0 [facility] ([place] Comment on above: Performed By: #### C BC, ADIFF, ANEU #### [address] [address] Monocytes/100 WBC (Bld) 6.5 % Normal 2.0-13.0 [facility] ([place]) Comment on above: Performed By: #### C BC, ADIFF, ANEU #### [address] [address] Neutrophils/100 WBC (Bld) 47.9 % Low 50.0-75.0 [facility] ([place]) Comment on above: Performed By: #### C BC, ADIFF, ANEU #### [address] [address] Ammonia (P) [Mass/Vol] 0.40 10 3/mcL Normal 0.09-1.40 [facility] ([place]) Comment on above: Performed By: #### C BC, ADIFF, ANEU, APTT #### [address] [address] Basophils (Bld) [#/Vol] 0.00 10 3/mcL Normal 0.00-0.27 [facility] ([place]) Comment on above: Performed By: #### C BC, ADIFF, ANEU, APTT #### [address] [address] Basophils/100 WBC (Bld) 0.8 % Normal 0.0-2.5 [facility] ([place]) Comment on above: Performed By: #### C BC, ADIFF, ANEU, APTT #### [address] [address] Eosinophils (Bld) [#/Vol] 0.10 10 3/mcL Normal 0.00-0.65 [facility] ([place]) Comment on above: Performed By: #### C BC, ADIFF, ANEU, APTT #### [address] [address] Eosinophils/100 WBC (Bld) 2.0 % Normal 0.0-6.0 [facility] ([place]) Comment on above: Performed By: #### C BC, ADIFF, ANEU, APTT #### [address] [address] Lymphocytes (Bld) [#/Vol] 2.30 10 3/mcL Normal 0.90-4.32 [facility] ([place]) Comment on above: Performed By: #### C BC, ADIFF, ANEU, APTT #### [address] [address] Lymphocytes/100 WBC (Bld) 37.6 % Normal 20.0-40.0 [facility] ([place]) Comment on above: Performed By: #### C BC, ADIFF, ANEU, APTT #### [address] [address] Monocytes/100 WBC (Bld) 6.0 % Normal 2.0-13.0 [facility] ([place]) Comment on above: Performed By: #### C BC, ADIFF, ANEU, APTT #### [address] [address] Neutrophils/100 WBC (Bld) 53.6 % Normal 50.0-75.0 [facility] ([place]) Comment on above: Performed By: #### C PROMISE, MECHELLE ANEU, APTT #### [address] [address] .GFRon 05-02-2019 GFR >60 Normal [facility] ([place]) Comment on above: Result Comment: GFR Population [...] mL/min/1.73 square meters Performed By: #### C PROMISE, MECHELLE ANEU, APTT #### [address] [address] GFR Non- >60 Normal [facility] ([place]) Comment on above: Result Comment: GFR Population [...] square meters Performed By: #### C BC, ADJUANI, ANEU, APTT #### [address] [address] .NEUABSon 05-02-2019 Neutrophils (Bld) [#/Vol] 2.10 10 3/mcL Low 2.25-8.10 [facility] ([place]) Comment on above: Performed By: #### C MECHELLE VIRGEN ANEU, APTT #### [address] [address] Neutrophils (Bld) [#/Vol] 2.70 10 3/mcL Normal 2.25-8.10 [facility] ([place]) Comment on above: Performed By: #### C MECHELLE VIRGEN ANEU #### [address] [address] Neutrophils (Bld) [#/Vol] 3.30 10 3/mcL Normal 2.25-8.10 [facility] ([place]) Comment on above: Performed By: #### C MECHELLE VIRGEN ANEU, APTT #### [address] [address] APTTon 05-02-2019 aPTT Coag (Bld) [Time] 75.6 s High 25.0-35.0 [facility] ([place]) Comment on above: Result Comment: For Heparin anticoagulation therapy, the recommended therapeutic range is: 54-77 seconds (APTT Correlation with Anti-Xa therapeutic range of 0.3-0.7 units/ml). PLEASE REFERENCE THE PHARMACY PROTOCOL FOR DOSING. Performed By: #### C MECHELLE VIRGEN ANEU, APTT #### [address] [address] aPTT Coag (Bld) [Time] Heparin IV Normal [facility] ([place]) Comment on above: Performed By: #### C MECHELLE VIRGEN ANEU, APTT #### [place] [address] aPTT Coag (Bld) [Time] Unknown Normal [facility] ([place]) Comment on above: Performed By: #### C MECHELLE VIRGEN ANEU, APTT #### [place] [phone] aPTT Coag (Bld) [Time] 150.2 s Criticall y abnormal 25.0-35.0 [facility] ([place]) Comment on above: Result Comment: For Heparin anticoagulation therapy, the recommended therapeutic range is: 54-77 seconds (APTT Correlation with Anti-Xa therapeutic range of 0.3-0.7 units/ml). PLEASE REFERENCE THE PHARMACY PROTOCOL FOR DOSING. Performed By: #### C BC, ADIFF, ANEU, APTT #### [address] [address] BMPon 05-02-2019 Calcium [Mass/Vol] 9.0 mg/dL Normal 8.4-10.1 [facility] ([place]) Comment on above: Performed By: #### B MP, MG, GFR, CBC, ADIFF, ANEU #### [place] [phone] Chloride [Moles/Vol] 110 mmol/L Normal 98-110 [facility] ([place]) Comment on above: Performed By: #### B MP, MG, GFR, CBC, ADIFF, ANEU #### [address] [address] CO2 [Moles/Vol] 26 mmol/L Normal 22-32 [facility] ([place]) Comment on above: Performed By: #### B MP, MG, GFR, CBC, ADIFF, ANEU #### [place] [phone] Creatinine [Mass/Vol] 0.76 mg/dL Normal 0.50-1.20 [facility] ([place]) Comment on above: Performed By: #### B MP, MG, GFR, CBC, ADIFF, ANEU #### [address] [address] Electrolyte Balance 6.0 mEq/L Normal 4.0-15.0 [facility] ([place]) Comment on above: Performed By: #### B MP, MG, GFR, CBC, ADIFF, ANEU #### [address] [address] Glucose [Mass/Vol] 81 mg/dL Normal 70-110 [facility] ([place]) Comment on above: Performed By: #### B MP, MG, GFR, CBC, ADIFF, ANEU #### [address] [address] Potassium [Moles/Vol] 3.6 mmol/L Normal 3.5-5.0 [facility] ([place]) Comment on above: Performed By: #### B MP, MG, GFR, CBC, ADIFF, ANEU #### [place] [phone] Sodium [Moles/Vol] 142 mmol/L Normal 136-145 [facility] ([place]) Comment on above: Performed By: #### B MP, MG, GFR, CBC, ADIFF, ANEU #### [place] [phone] Urea nitrogen [Mass/Vol] 12.0 mg/dL Normal 8.0-22.0 [facility] ([place]) Comment on above: Performed By: #### B MP, MG, GFR, CBC, ADIFF, ANEU #### [place] [phone] Urea nitrogen/Creatinine [Mass ratio] 15.8 ratio Normal 10.0-22.0 [facility] ([place]) Comment on above: Performed By: #### B MP, MG, GFR, CBC, ADIFF, ANEU #### [place] [id number] CBCon 05-02-2019 Erythrocyte distribution width (RBC) [Ratio] 23.4 % High 11.5-15.5 [facility] ([place]) Comment on above: Performed By: #### C BC, ADIFF, ANEU, APTT #### [place] [phone] Hematocrit (Bld) [Volume fraction] 33.1 % Low 34.0-46.0 [facility] ([place]) Comment on above: Performed By: #### C BC, ADIFF, ANEU, APTT #### [place] [phone] Hemoglobin (Bld) [Mass/Vol] 10.5 G/dL Low 12.0-16.0 [facility] ([place]) Comment on above: Performed By: #### C BC, ADIFF, ANEU, APTT #### [place] [phone] MCH (RBC) [Entitic mass] 25.5 pg Low 27.0-33.0 [facility] ([place]) Comment on above: Performed By: #### C BC, ADIFF, ANEU, APTT #### [address] [address] MCHC (RBC) [Mass/Vol] 31.7 G/dL Low 32.0-36.0 [facility] ([place]) Comment on above: Performed By: #### C BC, ADIFF, ANEU, APTT #### [address] [address] MCV (RBC) [Entitic vol] 80.4 fL Normal 80.0-99.0 [facility] ([place]) Comment on above: Performed By: #### C BC, ADIFF, ANEU, APTT #### [address] [address] Platelet mean volume (Bld) [Entitic vol] 8.3 fL Normal 6.6-10.5 [facility] ([place]) Comment on above: Performed By: #### C BC, ADIFF, ANEU, APTT #### [address] [address] Platelets (Bld) [#/Vol] 276 10 3/mcL Normal 150-450 [facility] ([place]) Comment on above: Performed By: #### C BC, ADIFF, ANEU, APTT #### [address] [address] RBC (Bld) [#/Vol] 4.12 10 6/mcL Normal 4.10-5.30 [facility] ([place]) Comment on above: Performed By: #### C BC, ADIFF, ANEU, APTT #### [address] [address] WBC (Bld) [#/Vol] 4.40 10 3/mcL Low 4.50-10.80 [facility] ([place]) Comment on above: Performed By: #### C BC, ADIFF, ANEU, APTT #### [address] [address] Erythrocyte distribution width (RBC) [Ratio] 23.9 % High 11.5-15.5 [facility] ([place]) Comment on above: Performed By: #### MECHELLE SEVERINO ANEU #### [place] [address] Hematocrit (Bld) [Volume fraction] 34.4 % Normal 34.0-46.0 [facility] ([place]) Comment on above: Performed By: #### MECHELLE SEVERINO ANEU #### [place] [phone] Hemoglobin (Bld) [Mass/Vol] 10.9 G/dL Low 12.0-16.0 [facility] ([place]) Comment on above: Performed By: #### MECHELLE SEVERINO ANEU #### [place] [phone] MCH (RBC) [Entitic mass] 25.2 pg Low 27.0-33.0 [facility] ([place]) Comment on above: Performed By: #### MECHELLE SEVERINO ANEU #### [place] [phone] MCHC (RBC) [Mass/Vol] 31.6 G/dL Low 32.0-36.0 [facility] ([place]) Comment on above: Performed By: #### MECHELLE SEVERINO ANEU #### [place] [address] MCV (RBC) [Entitic vol] 79.9 fL Low 80.0-99.0 [facility] ([place]) Comment on above: Performed By: #### MECHELLE SEVERINO ANEU #### [place] [phone] Platelet mean volume (Bld) [Entitic vol] 8.7 fL Normal 6.6-10.5 [facility] ([place]) Comment on above: Performed By: #### MECHELLE SEVERINO ANEU #### [place] [phone] Platelets (Bld) [#/Vol] 293 10 3/mcL Normal 150-450 [facility] ([place]) Comment on above: Performed By: #### MECHELLE SEVERINO ANEU #### [address] [address] RBC (Bld) [#/Vol] 4.31 10 6/mcL Normal 4.10-5.30 [facility] ([place]) Comment on above: Performed By: #### C BC, ADIFF, ANEU #### [place] [phone] WBC (Bld) [#/Vol] 5.60 10 3/mcL Normal 4.50-10.80 [facility] ([place]) Comment on above: Performed By: #### C BC, ADIFF, ANEU #### [address] [address] Erythrocyte distribution width (RBC) [Ratio] 23.5 % High 11.5-15.5 [facility] ([place]) Comment on above: Performed By: #### C BC, ADIFF, ANEU, APTT #### [place] [phone] Hematocrit (Bld) [Volume fraction] 36.0 % Normal 34.0-46.0 [facility] ([place]) Comment on above: Performed By: #### C BC, ADIFF, ANEU, APTT #### [place] [phone] Hemoglobin (Bld) [Mass/Vol] 11.1 G/dL Low 12.0-16.0 [facility] ([place]) Comment on above: Performed By: #### C BC, ADIFF, ANEU, APTT #### [place] [phone] MCH (RBC) [Entitic mass] 24.9 pg Low 27.0-33.0 [facility] ([place]) Comment on above: Performed By: #### C BC, ADIFF, ANEU, APTT #### [place] [phone] MCHC (RBC) [Mass/Vol] 30.8 G/dL Low 32.0-36.0 [facility] ([place]) Comment on above: Performed By: #### C BC, ADIFF, ANEU, APTT #### [facility] [address] [place], [place] [address] MCV (RBC) [Entitic vol] 80.9 fL Normal 80.0-99.0 [facility] ([place]) Comment on above: Performed By: #### C BCMECHELLE ANEU, APTT #### [place] [address] Platelet mean volume (Bld) [Entitic vol] 8.5 fL Normal 6.6-10.5 [facility] ([place]) Comment on above: Performed By: #### C BC, MECHELLE ANEU, APTT #### [place] [phone] Platelets (Bld) [#/Vol] 307 10 3/mcL Normal 150-450 [facility] ([place]) Comment on above: Performed By: #### C BC, MECHELLE ANEU, APTT #### [place] [phone] RBC (Bld) [#/Vol] 4.45 10 6/mcL Normal 4.10-5.30 [facility] ([place]) Comment on above: Performed By: #### C BC, MECHELLE, ANEU, APTT #### [place] [address] WBC (Bld) [#/Vol] 6.10 10 3/mcL Normal 4.50-10.80 [facility] ([place]) Comment on above: Performed By: #### C BC, MECHELLE, ANEU, APTT #### [place] [address] IR IVC FILTER PLACEMENT W/ IDEon 05-02-2019 IR IVC FILTER PLACEMENT W/GUIDE ORIGINAL Images acquired, not reported on this accession number. Normal [facility] ([place]) MGon 05-02-2019 Magnesium [Mass/Vol] 2.2 mg/dL Normal 1.6-2.4 [facility] ([place]) Comment on above: Performed By: #### C BC, ADIFF, ANEU, APTT #### [address] [address] TROPIon 05-02-2019 Troponin I.cardiac [Mass/Vol] ng/mL Normal 0.000-0.040 [facility] ([place]) Comment on above: Result Comment: Trop onin I reference ranges (02/03/14): 0.00-0.040 ng/mL Negative and non-diagnostic. >0.040 ng/mL Consistent with cardiac damage, increased clinical risk and possibility of myocardial infarction. Serial measurements, a rise & fall in test results, clinical history, appropriate symptoms and/or ECG changes may help assess possibility of TN. *Other non-acute coronary syndrome conditions such as CHF, myocarditis, pulmonary emboli, sepsis and cardiac surgery could result in myocardial damage and increased troponin levels. Performed By: #### T SH, TROPI #### [address] [address] TSHon 05-02-2019 TSH Qn 5.500 mcIU/mL High 0.360-3.740 [facility] ([place]) Comment on above: Performed By: #### T SH, TROPI #### [place] [address] (serum)on 12-09-19 18 Test (serum) Negative Normal Negative [facility] Comment on above: Performed By: #### U MIC1 ####[place] [address] Acetm Level W/ doseon 2016 Acetaminophen mass conc 0.0 ug/mL Low 10.0-30.0 [facility] Comment on above: Performed By: #### A CETM ####[address] [address] Last dose at EMERGENCY DETAIL DRIVER Normal [facility] Comment on above: Performed By: #### A CETM ####[address] [address] Performed By: #### S ALIC ####[address] [address] CBC w/Auto Differentialon Anemia EMERGENCY DETAIL DRIVER Normal [facility] Comment on above: Performed By: #### C BC ####[address], [place] [address] Anisocytosis presence EMERGENCY DETAIL DRIVER Normal [facility] Comment on above: Performed By: #### C BC ####[address] [address] Basophils Abs. # 0.0 K/uL Normal 0.0-0.1 [facility] Comment on above: Performed By: #### C BC ####[address] [address] Basophils/100 WBC Auto (Bld) 1.1 % High 0.2-1.0 [facility] Comment on above: Performed By: #### C BC ####[address] [address] Basophils/100 WBC Auto (Bld) EMERGENCY DETAIL DRIVER Normal [facility] Comment on above: Performed By: #### C BC ####[address] [address] [place] # EMERGENCY DETAIL DRIVER Normal [facility] Comment on above: Performed By: #### C BC ####[address] [address] Eosinophils EMERGENCY DETAIL DRIVER Normal [facility] Comment on above: Performed By: #### C BC ####[address] [address] Eosinophils 0.0 10*3/uL Normal 0.0-0.2 [facility] Comment on above: Performed By: #### C BC ####[address] [address] Eosinophils/100 leukocytes EMERGENCY DETAIL DRIVER Normal [facility] Comment on above: Performed By: #### C BC ####[address] [address] Eosinophils/100 leukocytes 0.6 % Low 0.9-2.9 [facility] Comment on above: Performed By: #### C BC ####[address] [address] Erythocytosis EMERGENCY DETAIL DRIVER Normal [facility] Comment on above: Performed By: #### C BC ####[address] [address] Erythrocyte distribution width Auto Ratio (RBC) 13.9 % Normal 11.5-14.5 [facility] Comment on above: Performed By: #### C BC ####[address] [address] Erythrocytes (RBC) 4.35 10*6/uL Normal 3.83-5.19 [facility] Comment on above: Performed By: #### C BC ####[address] [address] Hematocrit (HCT) 41.7 % Normal 33.4-46.0 [facility] Comment on above: Performed By: #### C BC ####[address] [address] Hemoglobin mass conc (Bld) 14.1 g/dL High 11.1-13.7 [facility] Comment on above: Performed By: #### C BC ####[address] [address] Hypochromia EMERGENCY DETAIL DRIVER Normal [facility] Comment on above: Performed By: #### C BC ####[address] [address] Large Platelets EMERGENCY DETAIL DRIVER Normal [facility] Comment on above: Performed By: #### C BC ####[address] [address] Leukocytosis EMERGENCY DETAIL DRIVER Normal [facility] Comment on above: Performed By: #### C BC ####[address] [place] [address] Leukopenia EMERGENCY DETAIL DRIVER Normal [facility] Comment on above: Performed By: #### C BC ####[address] [address] Lymphocytes EMERGENCY DETAIL DRIVER Normal [facility] Comment on above: Performed By: #### C BC ####[address] [address] Lymphocytes 1.1 10*3/uL Low 1.3-2.9 [facility] Comment on above: Performed By: #### C BC ####[address] [address] Lymphocytes/100 leukocytes 24.2 % Normal 17.0-45.5 [facility] Comment on above: Performed By: #### C BC ####[address] [address] Lymphocytes/100 leukocytes EMERGENCY DETAIL DRIVER Normal [facility] Comment on above: Performed By: #### C BC ####[address] [address] Macrocytosis EMERGENCY DETAIL DRIVER Normal [facility] Comment on above: Performed By: #### C BC ####[address] [address] MCH 32.3 pg High 27.0-31.0 [facility] Comment on above: Performed By: #### C BC ####[address] [address] MCHC mass conc (RBC) 33.8 g/dL Normal 33.0-37.0 [facility] Comment on above: Performed By: #### C BC ####[address] [address] MCV 95.7 fL Normal 81.0-99.0 [facility] Comment on above: Performed By: #### C BC ####[address] [address] Microcytosis EMERGENCY DETAIL DRIVER Normal [facility] Comment on above: Performed By: #### C BC ####[address] [address] Monocytes 0.3 10*3/uL Normal 0.3-0.8 [facility] Comment on above: Performed By: #### C BC ####[address] [address] Monocytes/100 leukocytes 6.1 % Normal 5.5-11.7 [facility] Comment on above: Performed By: #### C BC ####[address] [address] Monocytosis % EMERGENCY DETAIL DRIVER Normal [facility] Comment on above: Performed By: #### C BC ####[address] [address] Neutropenia # EMERGENCY DETAIL DRIVER Normal [facility] Comment on above: Performed By: #### C BC ####[address] [address] Neutropenia % EMERGENCY DETAIL DRIVER Normal [facility] Comment on above: Performed By: #### C BC ####[address] [address] Neutrophilia % EMERGENCY DETAIL DRIVER Normal [facility] Comment on above: Performed By: #### C BC ####[address] [address] Neutrophils EMERGENCY DETAIL DRIVER Normal [facility] Comment on above: Performed By: #### C BC ####[address] [address] Neutrophils Abs. # 3.0 K/uL Normal 2.2-4.8 [facility] Comment on above: Performed By: #### C BC ####[address] [address] Neutrophils/100 WBC Auto (Bld) 68.0 % High 43.0-65.0 [facility] Comment on above: Performed By: #### C BC ####[address] [address] NRBC % 0.0 % Normal [facility] Comment on above: Performed By: #### C BC ####[address] [address] NRBC Abs. # 0.0 K/uL Normal [facility] Comment on above: Performed By: #### C BC ####[address] [address] Pancytopenia EMERGENCY DETAIL DRIVER Normal [facility] Comment on above: Performed By: #### C BC ####[address] [address] Platelet mean volume (PMV) 8.6 fL Normal 7.4-10.4 [facility] Comment on above: Performed By: #### C BC ####[address] [address] Platelets 235 10*3/uL Normal 148-402 [facility] Comment on above: Performed By: #### C BC ####[address] [address] Poikilocytosis EMERGENCY DETAIL DRIVER Normal [facility] Comment on above: Performed By: #### C BC ####[address] [address] Small Platelets EMERGENCY DETAIL DRIVER Normal [facility] Comment on above: Performed By: #### C BC ####[address] [address] Thrombocytopenia EMERGENCY DETAIL DRIVER Normal [facility] Comment on above: Performed By: #### C BC ####[address] [address] Thrombocytopenia. EMERGENCY DETAIL DRIVER Normal [facility] Comment on above: Performed By: #### C BC ####[address] [address] Thrombocytosis EMERGENCY DETAIL DRIVER Normal [facility] Comment on above: Performed By: #### C BC ####[address] [address] WBC (Leukocytes) 4.4 10*3/uL Normal 3.6-10.8 [facility] Comment on above: Performed By: #### C BC ####[address] [address] Comprehensive Metabolic Pane [facility] 03-31-2017 Alanine aminotransferase (ALT) 26 U/L Normal 13-66 [facility] Comment on above: Performed By: #### C MP ####[address] [address] Albumin 4.5 g/dL Normal 3.4-5.0 [facility] Comment on above: Performed By: #### C MP ####[address] [address] Albumin/Globulin Ratio 1.4 {ratio} Normal 1.1-2.5 [facility] Comment on above: Performed By: #### C MP ####[address] [address] Alkaline phosphatase (ALP) 50 U/L Low 54-112 [facility] Comment on above: Performed By: #### C MP ####[address] [address] Anion gap 14.3 mmol/L Normal 8.0-16.0 [facility] Comment on above: Result Comment: CO RRECTED REPORT: Previous result was 15.1 at 12:14 on 03/31/17 Performed By: #### C MP ####[address] [address] Aspartate aminotransferase (AST) 15 U/L Normal 3-39 [facility] Comment on above: Performed By: #### C MP ####[place] [address] Bilirubin Ql (U) 0.48 mg/dL Normal 0.00-0.99 [facility] Comment on above: Performed By: #### C MP ####[address] [address] BUN/Creatinine Ratio 9 mg/mg Normal 6-20 [facility] Comment on above: Performed By: #### C MP ####[address] [address] Calcium 9.1 mg/dL Normal 8.2-10.0 [facility] Comment on above: Performed By: #### C MP ####[address] [address] Chloride 106 mmol/L Normal 94-110 [facility] Comment on above: Performed By: #### C MP ####[address] [address] CO2 27 mmol/L Normal 21-34 [facility] Comment on above: Performed By: #### C MP ####[address] [address] Creatinine 0.70 mg/dL Normal 0.51-0.95 [facility] Comment on above: Performed By: #### C MP ####[address] [address] eGFR (black) mL/min/{1.73_m2} Normal >60 [facility] Comment on above: Result Comment: Glue Maker Bone kelly Kidney Disease less than 60 mL/min/1.73 u0Ttpebo Failure less than 15 mL/min/1.73 o8Ltbuunw estimated GFR by age:20-29 years 116 mL/min/1.73 m2 Performed By: #### C MP ####[address] [address] eGFR (non-black) mL/min/{1.73_m2} Normal >60 [facility] Comment on above: Performed By: #### C MP ####[address] [address] Globulin 3.2 g/dL Normal 1.5-4.5 [facility] Comment on above: Performed By: #### C MP ####[address] [address] Glucose mass conc 94 mg/dL Normal 65-100 [facility] Comment on above: Performed By: #### C MP ####[address] [address] Potassium molar conc 3.3 mmol/L Normal 3.3-5.1 [facility] Comment on above: Performed By: #### C MP ####[address] [address] Protein 7.7 g/dL Normal 6.1-8.2 [facility] Comment on above: Performed By: #### C MP ####[address] [address] Sodium 144 mmol/L Normal 132-145 [facility] Comment on above: Performed By: #### C MP ####[address] [address] Urea nitrogen 6.2 mg/dL Normal 3.2-26.9 [facility] Comment on above: Performed By: #### C ####[place] [address] [place], [place] [id number] EMERGENCY DEPARTMENTon 03-31 EMERGENCY DEPARTMENT [facility] [address] [place] [address] HEALTH INFORMATION MANAGEMENT EMERGENCY DEPARTMENT : [id number] Signed Patient: PRANEETH PORRAS Acct:[id number] MRUN: [id number] : 1990 Sex: F Loc: ED ADM Date: 03/31/17 Room/Bed: DISC Date: History of Present Illness - General Chief Complaint: Evaluation Stated Complaint: SUICIDAL THOUGHTS Symptom onset: TODAY HPI: PT STATES THAT HER HAS LEFT HER AND THAT SHE CANNOT BE A SINGLE MOM. PT STATES SHE DROPPED HER CHILDREN OFF AT THE [facility]. PT STATES SHE IS HAVING SUICIDAL [...] by:: Nurses Desk Code parrish called: No Material Damage Appraiser office called R/T patient behavior: No [place] slip/Writ of mcfp: No - Behavior Assessment Patient Appearance: Disheveled [...] ideation - Skin Skin Color: Present: Normal, [place] Skin exam: Present: warm, dry - Vital [...] suicidal ideation and possible admission. Mental Health [facility] - Lab Data Result diagrams: 03/31/17 [...] (43.0-65.0) % Lymph % 24.2 (17.0-45.5) % [place] % 6.1 (5.5-11.7) % Eos % 0.6 [...] 9 (6-20) Glucose 94 (65-100) mg/dL Specific [place] 1.020 (1.015-1.025) Calcium 9.1 (8.2-10.0) mg/dL Total [...] % (43.0-65.0) % Lymph % (17.0-45.5) % [place] % (5.5-11.7) % Eos % (0.9-2.9) % [...] BUN/Creatinine Ratio (6-20) Glucose (65-100) mg/dL Specific [place] (1.015-1.025) Calcium (8.2-10.0) mg/dL Total Bilirubin (0.00-0.99) [...] were both negative. The patient evaluated by [facility] and plan is to admit for further [...] Agreed With?: Yes - Dictation Amendments/Documentati on: [employer] Document Only Electronically Generated By: DANIAL ENRIQUEZ DO Generated Date/Time: 03/31/17 1314 Electronically Signed By: DANIAL ENRIQUEZ DO Signed Date/Time 03/31/17 1648 Co Signed Electronically By: Co Signed Date/Time: CC: TAMI HALL ; PHYSICIAN, UNASSIGNED Normal [facility] Ethanol (Medical)on 03-31-20 Ethanol mg/dL Normal 0.0-0.0 [facility] Comment on above: Performed By: #### A LC ####[address] [address] (Urine)on 03-31-20 HCG ( test) Ql (U) Negative Normal Negative [facility] Comment on above: Performed By: #### U MIC1 ####[address] [address] Salic Level W/ doseon 2016 Salicylate <2.8 Normal 2.8-20.0 [facility] Comment on above: Performed By: #### S ALIC ####[address] [address] Urine Drug Screeningon 03-31 Amphetamines Negative [facility] Comment on above: Order Comment: Drug Screen Comment No Result Comment: cuto ff 1000 ng/mL Performed By: #### U MIC1 ####[address] [address] Barbiturates Negative Normal [facility] Comment on above: Order Comment: Drug Screen Comment No Result Comment: cuto ff 200 ng/mL Performed By: #### U MIC1 ####[address] [address] Benzodiazepines Negative Normal [facility] Comment on above: Order Comment: Drug Screen Comment No Result Comment: cuto ff 200 ng/mL Performed By: #### U MIC1 ####[address] [address] Cocaine Negative Normal [facility] Comment on above: Order Comment: Drug Screen Comment No Result Comment: cuto ff 300 ng/mL Performed By: #### U MIC1 ####[address] [address] Opiates Negative [facility] Comment on above: Order Comment: Drug Screen Comment No Result Comment: cuto ff 300 ng/mL Performed By: #### U MIC1 ####[address] [address] pH 5.0 Normal 5.0-8.0 [facility] Comment on above: Order Comment: Drug Screen Comment No Performed By: #### U MIC1 ####[address] [address] Phencyclidine Negative [facility] Comment on above: Order Comment: Drug Screen Comment No Result Comment: cuto ff 25 ng/mL Performed By: #### U MIC1 ####[address] [address] Specific [place] 1.020 Normal 1.015-1.025 [facility] Comment on above: Order Comment: Drug Screen Comment No Performed By: #### U MIC1 ####[address] [address] THC Positive Abnormal [facility] Comment on above: Order Comment: Drug Screen Comment No Result Comment: cuto ff 50 ng/mL Performed By: #### U MIC1 ####[address] [address] - - Normal [facility] Comment on above: Order Comment: Drug Screen Comment No Result Comment: .Albert linder Screen Comment:This assay provides a preliminary unconfirmed analytical testresult that may be suitable for the clinical management of patientsin certain situations. Some [id number] medications, aswell as adulterants, may cause inaccurate results. Screen onlytesting does not meet the [facility] Forensic Urine Drug TestingProgram requirements as a forensic urine drug test for workplacetesting. . Performed By: #### U [facility] ####[address] [address] [address] BRAIN WOon 03-28-2017 CT BRAIN WO [...] Electronically Signed by Kunal Maria03/28/2017 06:56 Normal [facility] EMERGENCY DEPARTMENTon 03-28 EMERGENCY DEPARTMENT [place] [id number] HEALTH INFORMATION MANAGEMENT EMERGENCY DEPARTMENT : [id number] Signed Patient: PRANEETH PORRAS Acct:[id number] MRUN: [id number] : 1990 Sex: F Loc: ED ADM [...] mood - Skin Skin Color: Present: Normal, [place] Skin exam: Present: warm, dry - Expanded [...] bloody (Clear) Urine pH 5 Ur Specific [place] 1.025 (1.015-1.025) Urine Protein 1+ A (Negative) [...] Agreed With?: Yes - Dictation Amendments/Documentati on: [employer] Document Only Electronically Generated By: GISELA HENAO PA-C Generated Date/Time: 03/27/172107 Electronically Signed By: GISELA HENAO PA-C Signed Date/Time 03/28/17 1357 Co Signed Electronically By: Co Signed Date/Time: 03/28/17190003/28/17 190 CC: TAMI HALL Normal [facility] (Urine)on 03-27-20 HCG ( test) Ql (U) Negative Normal Negative [facility] Comment on above: Performed By: #### P REGU ####[address] [address] UA w/reflex cultureon 2016 Appearance bloody Normal Clear [facility] Comment on above: Performed By: #### U ARC ####[address] [address] Bilirubin 1+ Abnormal Negative [facility] Comment on above: Result Comment: ?Met abolites of etodolac or high concentration of urobilinogen may causefalse positive results. Correlate clinically.? Performed By: #### U ARC ####[address] [address] Blood 250 Abnormal Negative [facility] Comment on above: Performed By: #### U ARC ####[address] [address] Collection Type EMERGENCY DETAIL DRIVER Normal [facility] Comment on above: Performed By: #### U ARC ####[address] [address] Color Red. Abnormal Yellow [facility] Comment on above: Result Comment: CO RRECTED REPORT: Previous result was orange at 20:53 on 03/27/17 Performed By: #### U ARC ####[address] [address] Glucose NORMAL Normal Negative [facility] Comment on above: Performed By: #### U ARC ####[address] [address] Ketones 1+ Abnormal Negative [facility] Comment on above: Performed By: #### U ARC ####[address] [address] Leukocytes Esterase 2+ Abnormal Negative [facility] Comment on above: Performed By: #### U ARC ####[address] [address] Nitrites Positive Abnormal Negative [facility] Comment on above: Result Comment: Fals e-positive readings may be produced by medications that colors the urine red or which turns the red in an acid medium. .CORRECTED REPORT: Previous result was POSITIVE at 20:53 on 03/27/17 Performed By: #### U ARC ####[address] [address] pH 5 Normal [facility] Comment on above: Performed By: #### U ARC ####[address] [address] Protein 1+ Abnormal Negative [facility] Comment on above: Performed By: #### U ARC ####[address] [address] Specific [place] 1.025 Normal 1.015-1.025 [facility] Comment on above: Performed By: #### U ARC ####[address] [address] Urobilinogen 1 mg/dL Normal Normal-1.0 [facility] Comment on above: Performed By: #### U ARC ####[address] [address] Urine Microscopicon 03-27-20 17 Bacteria 1+ /hpf Normal 0 - 1+ [facility] Comment on above: Performed By: #### U MIC1 ####[address] [address] Casts EMERGENCY DETAIL DRIVER Normal [facility] Comment on above: Performed By: #### U MIC1 ####[address] [address] Casts. EMERGENCY DETAIL DRIVER Normal [facility] Comment on above: Performed By: #### U MIC1 ####[address] [address] Crystals EMERGENCY DETAIL DRIVER Normal [facility] Comment on above: Performed By: #### U MIC1 ####[address] [address] Crystals. EMERGENCY DETAIL DRIVER Normal [facility] Comment on above: Performed By: #### U MIC1 ####[address] [address] Epithelial Cells 3-6 Normal 0 - 6 [facility] Comment on above: Performed By: #### U MIC1 ####[address] [address] INR Coag RelTime (Bld) TNTC Normal 0 - 2 [facility] Comment on above: Performed By: #### U MIC1 ####[address] [address] Mucus EMERGENCY DETAIL DRIVER Normal [facility] Comment on above: Performed By: #### U MIC1 ####[address] [address] Trichomonas EMERGENCY DETAIL DRIVER Normal [facility] Comment on above: Performed By: #### U MIC1 ####[address] [address] WBC TNTC Normal 0 - 6 [facility] Comment on above: Performed By: #### U MIC1 ####[address] [address] Yeast EMERGENCY DETAIL DRIVER Normal [facility] Comment on above: Performed By: #### U MIC1 ####[address] [address] Other EMERGENCY DETAIL DRIVER Normal [facility] Comment on above: Performed By: #### U MIC1 ####[address] [address] Vital Signs Date Time Vital Sign Value Performing Clinician Facility 01-31-2025 00:07-0400 Body temperature 97.6 [degF] No Primary Care Physician [facility] 01-31-2025 00:07-0400 Diastolic blood pressure 82 mm[Hg] No Primary Care Physician [facility] 01-31-2025 00:07-0400 Heart rate 95 /min No Primary Care Physician [facility] 01-31-2025 00:07-0400 Respiratory rate 18 /min No Primary Care Physician [facility] 01-31-2025 00:07-0400 SaO2% (BldA) [Mass fraction] 100 % No Primary Care Physician [facility] 01-31-2025 00:07-0400 Systolic blood pressure 130 mm[Hg] No Primary Care Physician [facility] 01-30-2025 22:04-0400 Body height 160.02 cm No Primary Care Physician [facility] 01-30-2025 22:04-0400 Body mass index (BMI) [Ratio] 24.3 kg/m2 No Primary Care Physician [facility] 01-30-2025 22:04-0400 Body weight 62.19 kg No Primary Care Physician [facility] 12-24-2024 00:00-0400 Heart rate 86 /min No Primary Care Physician [facility] 12-23-2024 22:29-0400 Body height 161.29 cm No Primary Care Physician [facility] 12-23-2024 22:29-0400 Body mass index (BMI) [Ratio] 22.1 kg/m2 No Primary Care Physician [facility] 12-23-2024 22:29-0400 Body temperature 97.5 [degF] No Primary Care Physician [facility] 12-23-2024 22:29-0400 Body weight 57.47 kg No Primary Care Physician [facility] 12-23-2024 22:29-0400 Diastolic blood pressure 88 mm[Hg] No Primary Care Physician [facility] 12-23-2024 22:29-0400 Respiratory rate 18 /min No Primary Care Physician [facility] 12-23-2024 22:29-0400 SaO2% (BldA) [Mass fraction] 100 % No Primary Care Physician [facility] 12-23-2024 22:29-0400 Systolic blood pressure 147 mm[Hg] No Primary Care Physician [facility] 09-24-2024 06:32-0400 Body height 160.02 cm No Primary Care Physician [facility] 09-24-2024 06:32-0400 Body mass index (BMI) [Ratio] 23 kg/m2 No Primary Care Physician [facility] 09-24-2024 06:32-0400 Body temperature 97.5 [degF] No Primary Care Physician [facility] 09-24-2024 06:32-0400 Body weight 58.9 kg No Primary Care Physician [facility] 09-24-2024 06:32-0400 Diastolic blood pressure 98 mm[Hg] No Primary Care Physician [facility] 09-24-2024 06:32-0400 Heart rate 68 /min No Primary Care Physician [facility] 09-24-2024 06:32-0400 Respiratory rate 18 /min No Primary Care Physician [facility] 09-24-2024 06:32-0400 SaO2% (BldA) [Mass fraction] 100 % No Primary Care Physician [facility] 09-24-2024 06:32-0400 Systolic blood pressure 144 mm[Hg] No Primary Care Physician [facility] 09-08-2024 13:24-0400 Body mass index (BMI) [Ratio] 22.46 kg/m2 Krislyn Aberegg PA Work Phone: [facility] 09-08-2024 13:24-0400 Body temperature 98.8 [degF] Krislyn Aberegg PA Work Phone: [facility] 09-08-2024 13:24-0400 Body weight 57.5 kg Krislyn Aberegg PA Work Phone: [facility] 09-08-2024 13:24-0400 Diastolic blood pressure 61 mm[Hg] Krislyn Aberegg PA Work Phone: [facility] 09-08-2024 13:24-0400 Heart rate 80 /min Krislyn Aberegg PA Work Phone: [facility] 09-08-2024 13:24-0400 Respiratory rate 18 /min Krislyn Aberegg PA Work Phone: [facility] 09-08-2024 13:24-0400 SaO2% (BldA) [Mass fraction] 99 % Krislyn Aberegg PA Work Phone: [facility] 09-08-2024 13:24-0400 Systolic blood pressure 96 mm[Hg] Krislyn Aberegg PA Work Phone: [facility] 11-02-2023 14:45-0400 Body mass index (BMI) [Ratio] 21.71 kg/m2 Krislyn Aberegg PA Work Phone: [facility] 11-02-2023 14:45-0400 Body temperature 97.7 [degF] Krislyn Aberegg PA Work Phone: [facility] 11-02-2023 14:45-0400 Body weight 55.6 kg Krislyn Aberegg PA Work Phone: [facility] 11-02-2023 14:45-0400 Diastolic blood pressure 72 mm[Hg] Krislyn Aberegg PA Work Phone: [facility] 11-02-2023 14:45-0400 Heart rate 76 /min Krislyn Aberegg PA Work Phone: [facility] 11-02-2023 14:45-0400 Respiratory rate 16 /min Krislyn Aberegg PA Work Phone: [facility] 11-02-2023 14:45-0400 SaO2% (BldA) [Mass fraction] 97 % Krislyn Aberegg PA Work Phone: [facility] 11-02-2023 14:45-0400 Systolic blood pressure 122 mm[Hg] Krislyn Aberegg PA Work Phone: [facility] 11-23-2022 05:10-0400 Body temperature 98.29 [degF] Shahzad Walker MD Work Phone: [facility] 11-23-2022 05:10-0400 Diastolic blood pressure 58 mm[Hg] Shahzad Walker MD Work Phone: [employer] [facility] 11-23-2022 05:10-0400 Heart rate 68 /min Shahzad Walker MD Work Phone: [facility] 11-23-2022 05:10-0400 Respiratory rate 19 /min Shahzad Walker MD Work Phone: [facility] 11-23-2022 05:10-0400 SaO2% (BldA) [Mass fraction] 100 % Shahzad Walker MD Work Phone: [facility] 11-23-2022 05:10-0400 Systolic blood pressure 110 mm[Hg] Shahzad Walker MD Work Phone: [facility] 09-26-2022 13:19-0400 Heart rate 64 /min Linda Whitehead MD Work Phone: [facility] 09-26-2022 13:19-0400 SaO2% (BldA) [Mass fraction] 98 % Linda Whitehead MD Work Phone: [facility] 09-26-2022 12:49-0400 Diastolic blood pressure 77 mm[Hg] Linda Whitehead MD Work Phone: [facility] 09-26-2022 12:49-0400 Systolic blood pressure 111 mm[Hg] Linda Whitehead MD Work Phone: [facility] 09-26-2022 12:09-0400 Body height 160 cm Linda Whitehead MD Work Phone: [facility] 09-26-2022 12:09-0400 Body mass index (BMI) [Ratio] 26.57 kg/m2 Linda Whitehead MD Work Phone: [facility] 09-26-2022 12:09-0400 Body temperature 99 [degF] Linda Whitehead MD Work Phone: [facility] 09-26-2022 12:09-0400 Body weight 68.04 kg Linda Whitehead MD Work Phone: [facility] 09-26-2022 12:09-0400 Respiratory rate 18 /min Linda Whitehead MD Work Phone: [facility] 08-07-2021 17:35-0500 Body temperature 97.39 [degF] Osbaldo Teran MD [facility] 08-07-2021 17:35-0500 Body weight 53.52 kg Osbaldo Teran MD [facility] 08-07-2021 17:35-0500 Diastolic blood pressure 90 mm[Hg] Osbaldo Teran MD [facility] 08-07-2021 17:35-0500 Heart rate 94 /min Osbaldo Teran MD [facility] 08-07-2021 17:35-0500 Respiratory rate 18 /min Osbaldo Teran MD [facility] 08-07-2021 17:35-0500 SaO2% (BldA) [Mass fraction] 99 % Osbaldo Teran MD [facility] 08-07-2021 17:35-0500 Systolic blood pressure 124 mm[Hg] Osbaldo Teran MD [facility] Encounters Encounter Date Encounter Type Care Provider Facility Start: 01-30-2025 End: 01-31-2025 Emergency department patient visit No Primary Care Physician -Emergency Department Work Phone: Start: 12-23-2024 End: 12-24-2024 Emergency department patient visit No Primary Care Physician -Emergency Department Work Phone: Start: 09-24-2024 End: 09-24-2024 Emergency department patient visit No Primary Care Physician -Emergency Department Work Phone: Start: 09-08-2024 End: 09-08-2024 ambulatory [facility]DE [facility] Facility:[facility] Start: 09-08-2024 End: 09-08-2024 Patient encounter procedure Miller BENITES Work Phone: [facility] Comment on above: Nasal sore (Primary Dx); Acute otitis externa of right ear, unspecified type Start: 08-14-2024 ambulatory [facility] Start: 05-20-2024 End: 05-20-2024 Emergency department patient visit No Primary Care Physician Facility:[facility] Start: 04-15-2024 End: 04-15-2024 Emergency department patient visit No Primary Care Physician Facility:[facility] Start: 11-03-2023 Telephone encounter Elise Lomeli APRN.CNP Work Phone: [facility] Comment on above: Results Start: 11-02-2023 End: 11-02-2023 ambulatory CANDE YOUNGADDEN III Facility:[facility] Start: 11-02-2023 End: 11-02-2023 Patient encounter procedure Miller BENITES Work Phone: [facility] Comment on above: Nausea and vomiting, unspecified vomiting type (Primary Dx); Dysuria; Exposure to strep throat Start: 10-05-2023 End: 10-05-2023 Emergency department patient visit BOSTON DO JONES [facility] Start: 02-09-2023 [facility] Start: 01-23-2023 End: 01-24-2023 Emergency department patient visit THANIA [facility] Start: 11-23-2022 Emergency department patient visit SHAHZAD WALKER [facility] Start: 11-23-2022 End: 11-23-2022 Emergency department patient visit SHAHZAD WALKER [facility] Start: 11-23-2022 End: 11-23-2022 Emergency department patient visit Shahzad Walker MD Work Phone: [facility] Emergency Dept Comment on above: Acute cystitis with hematuria (Primary Dx) Start: 11-16-2022 End: 11-16-2022 ambulatory THANIA VILLEGAS [facility] Start: 11-03-2022 ambulatory THANIA VILLEGAS [facility] Start: 10-26-2022 ambulatory THANIA VILLEGAS [facility] Start: 10-20-2022 End: 10-20-2022 ambulatory THANIA VILLEGAS [facility] Start: 10-10-2022 End: 10-10-2022 ambulatory JEANIE HUNTER [facility] Start: 09-26-2022 End: 09-26-2022 Emergency department patient visit LINDA WHITEHEAD [facility] Start: 09-26-2022 End: 09-26-2022 Emergency department patient visit Linda Whitehead MD Work Phone: [facility] Emergency Dept Comment on above: Pelvic cramping (Luna rowan Dx) Start: 08-26-2021 End: 08-27-2021 Emergency department patient visit CECELIA RESENDEZES [facility] Start: 08-16-2021 End: 08-17-2021 ambulatory JUSTIN AMES [facility] Start: 08-16-2021 End: 08-16-2021 Subsequent hospital visit by physician [facility] Start: 08-08-2021 End: 08-13-2021 Evaluation and management of inpatient [facility] Start: 08-07-2021 End: 08-08-2021 Emergency department patient visit [facility] Start: 08-07-2021 End: 08-08-2021 Emergency department patient visit Osbaldo Teran [facility] ED Comment on above: Depression with suic idal ideation (Primary Dx); Hypokalemia Start: 12-08-2017 End: 12-08-2017 Patient encounter HORTENCIA PEREZ Facility: Start: 03-31-2017 End: 04-01-2017 Emergency department patient visit UNASSIGNED PHYSICIAN Facility: Start: 03-27-2017 End: 03-27-2017 Emergency department patient visit GISELA HENAO Facility: Procedures Date Procedure Procedure Detail Performing Clinician Start: 12-23-2024 End: 12-23-2024 Polymerase chain reaction analysis No Primary Care Physician Start: 11-02-2023 Urnls dip stick/tablet rgnt auto [...] pelvic nonobstetric real-time image complete Jeanie Hunter KALYAN EMERGENCY DETAIL DRIVER Work Phone: Start: 09-26-2022 Comprehensive metabolic panel Jeanie Hunter [employer] EMERGENCY DETAIL DRIVER Work Phone: Start: 09-26-2022 End: 09-26-2022 Urine test visual color cmprsn meths Jeanie Hunter KALYAN EMERGENCY DETAIL DRIVER Work Phone: Start: 08-16-2021 Antibody hiv-1&hiv-2 single result Justin Kwaku COMIC WRITER - VALIDATION INTERN Work Phone: Start: 08-16-2021 Comprehensive metabolic panel Justin Kwaku COMIC WRITER - VALIDATION INTERN Work Phone: Start: 08-16-2021 Urinalysis microscopic only Justin Ames COMIC WRITER - [employer]IDATION INTERN Work Phone: Start: 08-16-2021 Urnls dip stick/tablet rgnt auto w/o microscopy Justin Ames COMIC WRITER - VALIDATION INTERN Work Phone: Start: 08-07-2021 COVID-19, RAPID Osbaldo Teran MD Start: 08-07-2021 Ecg routine ecg w/least 12 lds w/i&r Mabel Long COMIC WRITER - [employer]IDATION INTERN Work Phone: Start: 08-07-2021 Assay of acetaminophen Mabel Long COMIC WRITER - VALIDATION INTERN Work Phone: Start: 08-07-2021 Assay of magnesium Mabel Long APR N - [employer]N Work Phone: Start: 08-07-2021 Assay of salicylate Mabel Long APR N - [employer] Work Phone: Start: 08-07-2021 BASIC METABOLIC PANEL W/ REFLEX TO MG FOR LOW K Mabel Long COMIC WRITER - [employer]IDATION INTERN Work Phone: Start: 08-07-2021 Urinalysis microscopic only Mabel Long COMIC WRITER - VALIDATION INTERN Work Phone: Start: 08-07-2021 Urine test visual color cmprsn meths Mabel Bryan Mercedes COMIC WRITER - VALIDATION INTERN Work Phone: Plan of Treatment Date Care Activity Detail Author Start: 01-30-2025 [facility] Start: 01-30-2025 X-ray of foot, three or more views Foot min 3 Views [facility] Start: 01-30-2025 XR Foot GE 3 Views [facility] Start: 12-23-2024 Polymerase chain tyson ction analysis [facility] Start: 12-23-2024 [facility] Start: 12-23-2024 Chlamydia/Neisseria (PCR) Chla mydia/Neisseria (PCR) [facility] Start: 09-24-2024 [facility] Start: 01-28-2024 Covid-19 Vaccine ( season) Covid-19 Vaccine ( season) [facility] Start: 01-28-2024 Influenza vaccination [facility] Start: 10-11-2023 Depression screening using PHQ-9 (Patient Health Questionnaire 9) score DEPRESSION SCREENING [facility] Start: 05-29-2023 Behavioral Health Screening Behavioral Health Screening [facility] Start: 02-09-2023 End: 02-09-2023 Patient encounter procedure 02/09/2023 Appoint[place] [address] [place] [address] [facility] Start: 01-27-2023 Covid-19 Vaccine ( season) Covid-19 Vaccine ( season) [facility] Start: 01-27-2023 Influenza vaccinatio n given INFLUENZA VACCINE (Season Ended) [facility] Start: 11-24-2022 End: 11-24-2022 Patient encounter procedure 11/24/2022 Office Visit Obstetrics and Gynecology Mercedes Mccarthy APRN CNP [address] [place] [address] REPLACED BY [facility] Start: 01-17-2022 Screening for malign ant neoplasm of cervix Pap Testing [facility] Start: 2021 Screening for malign ant neoplasm of cervix HPV Testing [facility] Start: 01-27-2021 Influenza vaccination Flu vaccine (# 1) [facility] Start: 01-18-2020 Screening for malign ant neoplasm of cervix Cervical Cancer Screening [facility] Start: 2012 Screening for malign ant neoplasm of cervix PAP SMEAR [facility] Start: 2010 Hepatitis B Vaccine (1 of 3 - 19+ 3-dose series) Hepatitis B Vaccine (1 of 3 - 19+ 3-dose series) [facility] Start: 2010 Urine microalbumin profile DTaP,Tdap,Td Vaccine (1 - Tdap) [facility] Start: 2009 ANNUAL WELLNESS VISIT ANNUAL WELLNES S VISIT [facility] Start: 2009 Anxiety Screening Anxiety Screening [facility] Start: 2009 Depression Screening Depression Scre ening [facility] Start: 2009 Hepatitis C screening Hepatitis C Sc reening [facility] Start: 2009 HIV screening HIV Screening [facility] Start: 2003 Depression screening using PHQ-9 (Patient Health Questionnaire 9) score DEPRESSION SCREENING [facility] Start: 2002 Administration of diphtheria + tetanus + acellular pertussis vaccine DTAP/TDAP/TD VACCINE (1 - Tdap) [facility] Start: 1996 COVID-19 Vaccine (1) COVID-19 Vaccin e (1) [facility] Start: 1991 COVID-19 VACCINE (#1) COVID-19 VACCI NE (#1) [facility] Bacteria identified in Urine by Culture URINE CULTURE Microbiology Routine Nausea and vomiting, unspecified vomiting type Dysuria 11/02/2023 3:[address] [facility] Work Phone: End: 09-26-2022 Dark Green Top [facility] Comment on above: Once for 1 Occurrenc es starting 09/26/2022 until 09/26/2022, 1 completed End: 11-23-2022 Dark Green Top [facility] Lab SO Once for 1 Occurrences starting 11/23/2022 until 11/23/2022, 1 completed [facility] Comment on above: Once for 1 Occurrenc es starting 11/23/2022 until 11/23/2022, 1 completed Dark Green Top Dark Green Top L ab SO 11/23/2022 1:19 AM EDT [facility] EKG 12 Lead EKG 12 Lead ECG STAT 08/07/2021 6:52 PM EST [facility] Work Phone: End: 09-26-2022 Gold Top [facility] Comment on above: Once for 1 Occurrenc es starting 09/26/2022 until 09/26/2022, 1 completed End: 11-23-2022 Gold Top Gold Top Lab SO Once for 1 Occurrences starting 11/23/2022 until 11/23/2022, 1 completed [facility] Comment on above: Once for 1 Occurrenc es starting 11/23/2022 until 11/23/2022, 1 completed Gold Top Gold Top Lab ASA P 11/23/2022 1:19 AM EDT [facility] End: 11-23-2022 Lavender Top Lavender Top Lab SO Once for 1 Occurrences starting 11/23/2022 until 11/23/2022, 1 completed [facility] Comment on above: Once for 1 Occurrenc es starting 11/23/2022 until 11/23/2022, 1 completed Lavender Top Lav[facility] Lab SO 11/23/2022 1:19 AM EDT [facility] End: 09-26-2022 LIGHT BLUE TOP [facility] Comment on above: Once for 1 Occurrenc es starting 09/26/2022 until 09/26/2022, 1 completed End: 11-23-2022 LIGHT BLUE TOP LIGHT BLUE TOP Lab SO Once for 1 Occurrences starting 11/23/2022 until 11/23/2022, 1 completed [facility] Comment on above: Once for 1 Occurrenc es starting 11/23/2022 until 11/23/2022, 1 completed LIGHT BLUE TOP LIGHT BLUE TOP L ab SO 11/23/2022 1:19 AM EDT [facility] End: 11-23-2022 Light Green Top Light Green Top Lab SO Once for 1 Occurrences starting 11/23/2022 until 11/23/2022, 1 completed [facility] Comment on above: Once for 1 Occurrenc es starting 11/23/2022 until 11/23/2022, 1 completed Light Green Top Light Green Top Lab SO 11/23/2022 1:19 AM EDT [facility] End: 08-07-2021 [facility] Comment on above: One Time for 1 Occur rences starting 08/07/2021 until 08/07/2021 Patient Education [facility] Work Phone: Patient referral [facility] Work Phone: End: 09-26-2022 RAINBOW DRAW [facility] Work Phone: Comment on above: One Time for 1 Occur rences starting 09/26/2022 until 09/26/2022 End: 11-23-2022 RAINBOW DRAW [facility] SO One Time for 1 Occurrences starting 11/23/2022 until 11/23/2022 [facility] Work Phone: Comment on above: One Time for 1 Occur rences starting 11/23/2022 until 11/23/2022 RAINBOW DRAW [facility] SO 11/23/2022 1:19 AM EDT [facility] Payers Date Payer Category Payer Self-pay 2023 Medicaid [employer] Member Ibanez bscriber Plan / Payer (Effective 2023-Present) Name: Praneeth Porras Relation to Subscriber: Self Name: Praneeth Porras Payer ID: [id number] (NAIC) Group ID: Not on file Type: Medicaid Address: [address] [address] [id number] 2022 Private Health Insurance [id number] 2016 Unknown [id number] 2012 Private Health Insurance [id number] 1991 Unknown [id number] [id number]. 176 1991 Unknown [id number] 2.16.840.1.196657.3.579.2. 173 1991 Unknown [id number] 2.16.840.1.150447.3.579.2. 173 1991 Unknown [id number] 2.16.840.1.089122.3.579.2. 173 1991 Unknown [id number] 2.16.840.1.692649.3.579.2. 297 1991 Unknown [id number] 2.16.840.1.679956.3.579.2. 297 1991 Unknown [id number] 2.16.840.1.924614.3.579.2. 297 1991 Unknown [id number] 2.16.840.1.824970.3.579.2. 297 1991 Unknown [id number] 2.16.840.1.980557.3.579.2. 297 1991 Unknown [id number] 2.16.840.1.382053.3.579.2. 297 1991 Unknown [id number] 2.16.840.1.544188.3.579.2. 297 1991 Unknown [id number] 2.16.840.1.457925.3.579.2. 297 1991 Unknown [id number] 2.16.840.1.230536.3.579.2. 297 1991 Unknown [id number] 2.16.840.1.026752.3.579.2. 651 1991 Unknown [id number] 2.16.840.1.110896.3.579.2. 651 Unknown [id number] 2.16.840.1.970131.3.579.2. 462 Unknown [id number] 2.16.840.1.164395.3.579.2. 462 Unknown [id number] 2.16.840.1.607795.3.579.2. 462 Unknown [id number] 2.16.840.1.831818.3.579.2. 462 Unknown [id number] 2.16.840.1.533089.3.579.2. 462 Social History Date Type Detail Facility Start: 08-07-2021 End: 01-31-2025 Tobacco smoking status DEIS Smokes tobacco daily [facility] Phone: History of tobacco use [facility] Phone: Start: 08-07-2021 End: 11-02-2023 Tobacco use and exposure Smokeless tobacco non-user [facility] Phone: Start: 1990 Sex Assigned At Not on file M [facility] Phone: Start: 07-09-2021 End: 09-26-2022 Exposure to SARS-CoV-2 (event) Not sure [facility] Phone: Start: 08-08-2021 Alcohol intake Ex-drinker (finding) [facility] Phone: History of tobacco use Cigarette Smoker [facility] Start: 09-26-2022 End: 09-08-2024 Cigarettes smoked current (pack per day) - Reported 0.5 [facility] Start: 09-26-2022 End: 11-23-2022 Alcohol intake Lifetime non-drinker (finding) [facility] Start: 1990 [facility] Start: 10-10-2022 History SDOH Financial 2 [facility] Start: 10-10-2022 History SDOH Transport Med 1 [facility] Start: 11-02-2023 Tobacco smoking status NHIS Ex-smoker [facility] History of tobacco use Current smoker [facility] Start: 11-02-2023 End: 09-08-2024 Alcohol intake Current non-drinker of alcohol (finding) [facility] Start: 11-02-2023 End: 09-08-2024 Tobacco use panel [facility] Start: 09-24-2024 Sex Female (finding) [facility] NEGATED: Highlighted row Not [facility] Clinical Notes 09-26-2022 to 01-30-2025 Miller Keyes PA - 09/08/2024 1:31 PM EDTTelephone Encounter - Sedrick Cox - 11/03/2023 5:59 PM EDTTelephone Encounter - Sedrick Cox - 11/03/2023 5:59 PM EDTPatient Instructions Note Date & Type Note Facility 01-30-2025 Hospital Discharg e instructions Additional Instructions Your x-ray did not show any sign fracture or dislocation indicating you have a deep bone bruise known as a contusion. It would typically take 5 to 10 days for this to heal. Continue to ice the area to help reduce pain and speed healing and take the prescribed medications as directed. Return to the ER should you have any further concerns [facility] Work Phone: 09-24-2024 Hospital Discharg e instructions Additional Instructions [...] ER should you have any further concerns [facility] Work Phone: 09-08-2024 Note HNO ID: [id number] Author: MILLER KEYES PA Service: ? Author Type: Physician Clothing Pattern Preparer Type: Progress Notes Filed: 09/08/2024 13:39 Note Text: [facility] Subjective Praneeth Porras is a 34 [...] suggestive Disposition The patient was discharged. Procedures [facility] 09-08-2024 History of Presen t illness [...] was discharged. Procedures documented in this encounter [facility] 11-03-2023 Telephone encounter Note Patient verbally understands culture was normal and if symptoms persist to see PCP. Sedrick Cox [facility] 11-03-2023 Miscellaneous Notes Patient verbally understands culture was normal and if symptoms persist to see PCP. Sedrick Cox Patient's urine culture came back with normal blanca. Please call patient let her know if her symptoms are persistent that she should follow-up with primary care. documented in this encounter [facility] 11-03-2023 Telephone encounter Note Patient's urine culture came back with normal blanca. Please call patient let her know if her symptoms are persistent that she should follow-up with primary care. [facility] Work Phone: 11-02-2023 Instructions Miller Keyes PA [...] such as tea, flat jude mariza or lemon-levelock soda, broth and gelatin. -If liquids are [...] decreased urination, develop. documented in this encounter [facility] 11-02-2023 Note HNO ID: [id number] Author: MILLER KEYES PA Service: ? Author Type: Physician Clothing Pattern Preparer Type: Progress Notes Filed: 11/02/2023 15:05 Note Text: This note was created using Reamazeriter. Subjective Praneeth Porras is a 33 year [...] detail warranting prompt ER evaluation. KAMARI Posadas [facility] 11-02-2023 History of Presen t illness Narrative This note was created using Trustpilotter. Subjective Praneeth Porras is a 33 year [...] evaluation. KAMARI Posadas documented in this encounter [facility] 11-23-2022 Hospital Discharg e Shahzad Ballesteros MD - 11/23/2022 4:59 AM EDT Follow up with your primary care doctor. Please return to the Emergency Department for any new or worsening symptoms. documented in this encounter [facility] 11-23-2022 Emergency department Note Obtained 2 IVs using ultrasound, an 18G in LAC and 20G in RAC, both with blood return. Pt insisted both be removed immediately after flushing, she states she cantaste the saline and something must be wrong Pt now has no IV and blood has not been collected. ERP aware. [facility] 11-23-2022 Emergency department Note Obtained 2 IVs [...] from the original note were not included. [facility] - [place] [facility] Course/Medical Decision Making: Praneeth Porras, date [...] following orders were created for panel order [facility]. Procedure Abnormality Status --------- ------ Gold Top[[id number]] In process LIGHT BLUE TOP[[id number]] In process Light Green Top[[id number]] In process Lavender Top[[id number]] In process Dark Green Top[[id number]] In process Please view results for these [...] identified. Shahzad Walker MD 11/23/22, 5:00 AM [facility] Emergency Physicians This note was partially generated using Moxsie Dictation system, and there may be some incorrect words, spellings, and punctuation that were not noted in checking the note before saving. Shahzad Walker MD 11/23/22 0500 documented in this encounter [facility] 11-23-2022 Emergency department Triage note PT c/o hematuria. PT states that this started yesterday. C/O pain in lower back and pelvic area more with urination but constant. PT is alert and oriented x 4 Resp are equal and unlabored Skin pwd [facility] 11-23-2022 Physician Emergency department Note Images from the original note were not included. [facility] Emergency Department - [place] [facility] Course/Medical Decision Making: Praneeth Porras, date [...] following orders were created for panel order [facility]. Procedure Abnormality Status --------- ------ Gold [facility][[id number]] In process LIGHT BLUE TOP[[id number]] In process Light Green Top[[id number]] In process Lavender Top[[id number]] In process Dark Green Top[[id number]] In process Please view results for these [...] identified. Shahzad Walker MD 11/23/22, 5:00 AM [facility] This note was partially generated using LetsBuy.comation system, and there may be some incorrect words, spellings, and punctuation that were not noted in checking the note before saving. Shahzad Walker MD 11/23/22 0500 [facility] 09-26-2022 Emergency department Note at bedside. [facility] 09-26-2022 Emergency department Note at bedside. Pt's [...] SERUM(DO NOT USE FOR TUMOR MARKER, SEE [id number]) CBC AND DIFFERENTIAL RAINBOW DRAW Narrative: The following orders were created for panel order [facility]. Procedure Abnormality Status --------- ------ Gold Top[[id number]] In process LIGHT BLUE TOP[[id number]] In process Dark Green Top[[id number]] In process Please view results for these tests on the individual orders. GOLD TOP LIGHT BLUE TOP DARK GREEN TOP US Pelvis-Torsion Study Final Result AGE-APPROPRIATE UTERUS AND OVARIES. : Spoke with Dr. Whitehead regarding patient. Physician to complete their own physical exam and evaluation. Collaboration performed between this BEHAVIORAL SCIENCES DEPARTMENT CHAIR and physician regarding patient's plan of care. [...] Procedures Medical Decision Making Jeanie Hunter APRN EMERGENCY DETAIL DRIVER 09/26/22 8970 Pt arrives to ED via private vehicle. [...] unlabored. NAD noted. documented in this encounter [facility] 09-26-2022 Emergency department Note Pt's HR 47. This nurse in to check on pt. Pt sleeping in bed and easily awakens to name. Pt awake and HR 68. aware. [facility] 09-26-2022 Emergency department Note Patient to ultrasound at this time [facility] 09-26-2022 Physician Emergency department Note ED Diagnosis [...] SERUM(DO NOT USE FOR TUMOR MARKER, SEE [id number]) CBC AND DIFFERENTIAL RAINBOW DRAW Narrative: The following orders were created for panel order [facility]. Procedure Abnormality Status --------- ------ Gold Top[[id number]] In process LIGHT BLUE TOP[[id number]] In process Dark Green Top[[id number]] In process Please view results for these tests on the individual orders. GOLD TOP LIGHT BLUE TOP DARK GREEN TOP US Pelvis-Torsion Study Final Result AGE-APPROPRIATE UTERUS AND OVARIES. : Spoke with Dr. Whitehead regarding patient. Physician to complete their own physical exam and evaluation. Collaboration performed between this BEHAVIORAL SCIENCES DEPARTMENT CHAIR and physician regarding patient's plan of care. [...] Procedures Medical Decision Making Jeanie Hunter APRN EMERGENCY DETAIL DRIVER 09/26/22 1450 [facility] 09-26-2022 Emergency department Triage note Pt arrives [...] A&Ox4. RR easy and unlabored. NAD noted. [facility] Evaluation note Diagnosis Depression with suicidal ideation- Primary Hypokalemia Hypopotassemia documented in this encounter [facility] Work Phone: evaluation note* Diagnosis Pelvic cramping- Primary Unspecified symptom associated with female genital organs documented in this encounter [facility] note* Diagnosis Acute cystitis with hematuria- Primary Acute cystitis documented in this encounter [facility] note* Diagnosis Nausea and vomiting, unspecified vomiting type- Primary Dysuria Exposure to strep throat Contact with or exposure to other communicable diseases documented in this encounter [facility] note* Diagnosis Nasal sore- Primary Other diseases of nasal cavity and sinuses Acute otitis externa of right ear, unspecified type documented in this encounter [facility] noteNo assessment information availableWProMedica [facility] Hospital Work Phone: Hospital Discharge instructions* Attachments The following attachments cannot be sent through Care Everywhere. * Pelvic [facility] (Marshallese [place]otswanan) [facility] Consultation (Routine) - Open Specialty Diagnoses / Procedures Referred By Karen gonzalez Referred To Contact Family Medicine Diagnoses Pelvic cramping Jeanie Hunter APRN EMERGENCY DETAIL DRIVER [address] [place] [address] [facility] [address] [place] [address] Referral ID Status Reason Start Date Expiration Date Visits Re quested Visits Authorized [id number] Open 09/26/2022 10/28/2023 1 1 [facility] for referral (narrative)No reason for referral information availableWProMedica [facility] Hospital Work Phone: Summary Purpose Family History [...] Do you have a Healthcare Power of Child Nutrition Assistant? No September 24, 2024 6:35am Advance Directive Response Recorded Date/ Time Do you have a Healthcare Power of Child Nutrition Assistant? No September 24, 2024 6:35am Do you have a Healthcare Power of Child Nutrition Assistant? No December 23, 2024 10:36pm Advance Directive Response Recorded Date/ Time Do you have a Healthcare Power of Child Nutrition Assistant? No January 31, 2025 12:07am Do you have a Healthcare Power of Child Nutrition Assistant? No December 23, 2024 10:36pm Chief Complaint and Reason for Visit Chief Complaint Admit Date eye problem September 24, 2024 6:3 2am Chief Complaint Admit Date eye problem September 24, 2024 6:3 2am female c/o December 23, 2024 10:2 7pm Chief Complaint Admit Date female c/o December 23, 2024 10:2 7pm Foot injury January 30, 2025 10:03pm Additional Source Comments INFORMATION SOURCE (unrecogn ized section and content) DATE CREATED AUTHOR 12/09/2017 [facility] DATE CREATED AUTHOR AUTHOR'S ORGANIZ ATION 07/19/2019 [facility] ([place]) DATE CREATED AUTHOR AUTHOR'S ORGANIZ ATION 02/07/2021 [facility] DATE CREATED AUTHOR AUTHOR'S ORGANIZ ATION 08/13/2021 [facility] DATE CREATED AUTHOR AUTHOR'S ORGANIZ ATION 08/29/2021 [facility] DATE CREATED AUTHOR AUTHOR'S ORGANIZ ATION 09/01/2021 [facility] DATE CREATED AUTHOR AUTHOR'S ORGANIZ ATION 06/17/2023 [facility] DATE CREATED AUTHOR AUTHOR'S ORGANIZ ATION 08/16/2024 [facility] DATE CREATED AUTHOR AUTHOR'S ORGANIZ ATION 09/09/2024 [facility] DATE CREATED AUTHOR AUTHOR'S ORGANIZ ATION 02/02/2025 [facility] Reason for Visit (unrecogniz ed section [...] 600 mg, Oral, ONCE, On 08/07/21 at 2015, For 1 dose, Maintain adequate fluid and sodium intake 2027 (Given - Provider: Bailey Golden, RN) potassium chloride (KLOR-CON M) extended release [...] medication. 030 (Given - Provid er: Bernadette Rivera, KESHAWN) LOCM iohexol (OMNIPAQUE 300 MG/ML) injection 100 mL (COMPLETED) 100 mL, Intravenous, ONCE, 1 dose, On Mon11/23/22 at 0400, Radiology 0321 (Given - Provid er: Mary Martinez, RT) LORazepam (ATIVAN) tablet 1 mg (COMPLETED) 1 mg, Oral, ONCE, 1 dose, On Mon11/23/22 at 0300, Caution: This medication looks and/or sounds like another medication. 0226 (Given - Provid er: Bernadette Rivera, KESHAWN) ondansetron hcl (ZOFRAN) injection 4 mg (COMPLETED) [...] Care Teams (unrecognized sec tion and content) Drill Sergeant Relationship Specialty [place] [address] [place] [address] PCP - General Family Medicine 10/13/22 Drill Sergeant Relationship Specialty Start Date End Date Cande Luciano III PCP - General Family Medicine 01/13/17 Drill Sergeant Relationship Specialty Start Date End Date Cande Luciano III PCP - General Family Medicine 01/13/17 Drill Sergeant Relationship Specialty Start Date End Date Cande [...] December 23, 2024 End: December 24, 2024 Team Status: Inactive Member Role/Relationship Status Dates No Primary Care Physician Primary Care Provider Active Start: December 23, 2024 End: December 24, 2024 Dr. Kyle Fan MD Attending Provider Active Start: December 23, 2024 End: December 24, 2024 Dr. Kyle Fan MD Emergency Provider Active Start: December 23, 2024 End: December 24, 2024 Team Status: Inactive Member Role/Relationship Status Dates No Primary Care Physician Primary Care Provider Active Start: January 30, 2025 End: January 31, 2025 Dr. Jerod Davis DO Emergency Provider Active Start: January 30, 2025 End: January 31, 2025 Source Comments (unrecognize d section and content) In the event this informatio n is protected by the Federal Confidentiality of Alcohol and Drug Abuse Patient Records regulations: The Federal rules restrict any use of the information to criminally investigate or prosecute any alcohol or drug abuse patient.[facility] System[facility] the event this information is protected by the Federal Confidentiality of Alcohol and Drug Abuse Patient Records regulations: The Federal rules restrict any use of the information to criminally investigate or prosecute any alcohol or drug abuse patient.[facility] SystemIn the event this information is protected by the Federal Confidentiality of Alcohol and Drug Abuse Patient Records regulations: The Federal rules restrict any use of the information to criminally investigate or prosecute any alcohol or drug abuse patient.[facility] Goals (unrecognized section and content) Goals may be documented in a n alternate sectionGoals may be documented in an alternate sectionGoals may be documented in an [...] BE BASED ON THE PRIMARY CLINICAL RECORDS. [facility] [employer] [facility]. provides no warranty or guarantee of the accuracy or completeness of information in this document.
--- NOTE | 2025-02-02 11:34 | EDS_ITS ---
HPI HPI - Female History of Present Illness Chief Complaint: Complaint Informant: patient Narrative Narrative: 34-year-old female presenting with burning dysuria, frequency, and some lower abdominal discomfort for several minutes after urinating for the past 2 days. Radiates into her mid low back. No lateralizing abdominal or back symptoms. At 1 point she had some subjective fevers and chills but does not know if she really had a fever or not did not check her temperature. No nausea or vomiting. Denies any vaginal discharge or bleeding. PFSH PFSH Medical History Presence of IVC filter Pulmonary embolism Paranoid schizophrenia Home Medications ?Medication ?Instructions ?Recorded ?Last Taken ?Type lurasidone 20 mg tablet 20 mg PO QPM 09/24/24 Unknow n History doxycycline monohydrate 100 mg 100 mg PO BID #14 CAPSU LES 12/23/24 Unknown Rx capsule ibuprofen 600 mg tablet 600 mg PO 4X/DAY PRN pain #4 0 tabs 01/30/25 Unknown Rx oxycodone-acetaminophen 5 mg-325 1 tab PO Q6H PRN pain 3 days #12 01/30/25 Unknown Rx mg tablet (Percocet) tabs sulfamethoxazole 800 1 tab PO BID #6 TABLETS 12/20 Unknown Rx mg-trimethoprim 160 mg tablet Allergy/AdvReac Type Severity Reaction Status Date / Time quetiapine (From Seroquel) Allergy Chest Verified 02/02/25 10:56 tightness Surgical History History of lumpectomy Social History household members: family current occupational status: employed Smoking Status: Current every day smoker tobacco type: e-cigarettes ROS ROS ED Constitutional Constitutional ED: Denies chills or fever(s) Eyes Eyes: Denies change in vision or diplopia ENT ENT ED: Denies rhinorrhea or sore throat Cardiovascular Cardiovascular: Denies chest pain or palpitations Respiratory/Chest Respiratory/Chest: Denies cough or dyspnea Gastrointestinal Gastrointestinal: Reports abdominal pain; Denies diarrhea, nausea or vomiting Genitourinary Genitourinary ED: Reports dysuria and urinary frequency; Denies hematuria Musculoskeletal Musculoskeletal: Reports back pain; Denies neck pain Integumentary Denies abscess or rash Neurologic Neurologic: Denies headache(s), paresthesias or weakness Psychiatric Psychiatric: Denies anxiety or suicidal thoughts EXAM Physical Exam Const Vital Signs: 02/02/25 10:56 Temperature 98.6 F Temperature Source Oral Pulse Rate 85 Respiratory Rate 16 Blood Pressure 154/91 H Blood Pressure Mean 112 Pulse Ox 99 Oxygen Delivery Method Room Air Positive well nourished and well developed General Appearance ED: well developed and NAD HEENT Reports moist mucous membranes normocephalic and atraumatic Eyes PERRL and EOMs intact bilaterally Neck full ROM and supple Resp normal respiratory effort GI non-distended GI Narrative: Mild suprapubic tenderness. No lateralizing pelvic tenderness. No guarding or rebound. Benign abdomen. Auscultation: normoactive bowel sounds Palpation: soft Back/Spine no CVA tenderness General Back: other FROM Extremity normal to inspection General Extremety ED: Negative for edema, pulses abnormal or tenderness General Extremity: Negative for edema or pulses abnormal Neuro oriented x3, CN's II-XII intact bilaterally and no sensory deficits noted Sensorium / Orientation: awake and alert Motor Exam: strength 5/5 throughout Skin no rashes or lesions noted and no wounds MDM MDM MDM Narrative Medical decision making narrative: test is negative, patient has some pyuria and 25 leukocyte esterase negative nitrate, her urine is a little cloudy. Given her symptoms I think reasonable to treat her with a 3-day course of Bactrim to cover cystitis, she is comfortable with that plan. Lab Data Attestation: I reviewed the patient's lab results. Labs: Laboratory Results - last 24 hr 02/02/25 11:16 Urine Color Yellow Urine Clarity Sl Cloudy Urine pH 6.0 Ur Specific Mitchell 1.025 Urine Protein 100 H Urine Glucose (UA) Normal Urine Ketones Negative Urine Occult Blood 50 H Urine Nitrite Negative Urine Bilirubin Negative Urine Urobilinogen Normal Ur Leukocyte Esterase 25 H Urine RBC 0 SEEN Urine WBC 10-25 SEEN Ur Squamous Epith Cells 0-5 SEEN Urine Bacteria 1+ Urine Mucus 0 SEEN Urine Test Negative Discharge Plan Triage Chief Complaint: Complaint ED Provider: Kyle Fan Dx/Rx/DC Orders Clinical Impression: Acute cystitis without hematuria Instructions: ED Cystitis Female Adult Prescriptions: New sulfamethoxazole-trimethoprim 800-160 mg tablet 1 tab PO BID Qty: 6 0RF No Action lurasidone 20 mg tablet 20 mg PO QPM ibuprofen 600 mg tablet 600 mg PO 4X/DAY PRN (Reason: pain) Qty: 40 0RF oxycodone-acetaminophen [Percocet] 5-325 mg tablet 1 tab PO Q6H PRN (Reason: pain) 3 Days Qty: 12 0RF doxycycline monohydrate 100 mg capsule 100 mg PO BID Qty: 14 0RF Primary Care Provider: Care Physician,No Primary Referrals: Doctor,Your [Non-Staff] - 3-5 Days if not improving Print Language: Russian Disposition Disposition: Home, Self Care
[2025-02-02 11:44] LABS: Glucose, Dipstick Normal (Normal); Ketone-Dipstick Negative (Negative); Leukocyte Esterase-Dipstick 25 /ul (Negative); Nitrite-Dipstick Negative (Negative); Occult Blood-Urine 50 /ul (Negative); Protein-Dipstick 100 mg/dl (Negative); Specific Gravity, Urine 1.025 (1.002-1.030); Urine Bilirubin Dipstick Negative (Negative)
[2025-02-02 11:56] LABS: Color, Urine Yellow (Yellow)
[2025-02-02 11:57] LABS: Internal QC Validated? YES +Cl - CLEAR BKGD; Pregnancy, Urine Negative Negative; Record Kit Lot#,Urine Preg 0000947241; Squamous Epithelial Cells - UA 0-5 SEEN /hpf (5-10)
[2025-02-02] MEDS: Smz/Tmp Ds Tablet 1 TABLET PO (12:25)
[2025-02-02 12:26] VITALS: BP 140/78; PULSE 61; RESP 18; TEMP 36.6; O2SAT 100
--- NOTE | 2025-02-02 12:27 | CM.ED ---
Social Work Date of referral: 02/02/25 Reason for referral: No primary care physician (PCP) on file. Referred by: Social Work identification Patient on her way out;discharge completed however director social was able to provide patient with a written handout for the [facility] which patient accepted and expressed appreciation for. Mary Kim, MECHANICAL OXIDIZER, INSPECTOR [employer] EMISSIONS
== END 2025-02-02 12:27 | disposition home or self-care (01) ==
PROVIDERS: Emergency Provider Emergency Medicine; Visit Provider Emergency Medicine
DX: N30.00 Acute cystitis without hematuria (principal); F20.0 Paranoid schizophrenia; Z79.899 Other long term (current) drug therapy; Z95.828 Presence of other vascular implants and grafts; F17.290 Nicotine dependence, other tobacco product, uncomplicated
CPT/HCPCS: 81001; 81025; 99282

== ENCOUNTER 2025-03-11 18:03 | Emergency (ER) | payer SELFPAY ==
[2025-03-11 18:05] VITALS: BP 140/89; PULSE 120; RESP 20; TEMP 37.3; O2SAT 100; BMI 25.4
--- NOTE | 2025-03-11 18:35 | ED.VIS.FEGU ---
HPI HPI - Female History of Present Illness Chief Complaint: Informant: patient Associated Symptoms P: 3 Ab: 0 Narrative Narrative: 34-year-old female G3, P3 Ab0. History of DVT with last . IVC filter. Thinks she may be . Last menstrual period was 02/06/2025. She was for started 2 days ago and is late. Took a urine test at home was positive. Says she just feels fatigued. Denies any other symptoms. No vaginal bleeding. No pelvic pain. Would also like to be checked for STDs. Currently has no OB. Last child is 5 years old. Prior similar symptoms: Yes Recent Illness/Hospitalization: No PFSH PFSH Medical History Presence of IVC filter Pulmonary embolism Paranoid schizophrenia Home Medications ?Medication ?Instructions ?Recorded ?Last Taken ?Type lurasidone 20 mg tablet 20 mg PO QPM 09/24/24 Unknown History doxycycline monohydrate 100 mg 100 mg PO BID #14 CAPSULES 12/23/24 Unknown Rx capsule ibuprofen 600 mg tablet 600 mg PO 4X/DAY PRN pain #40 tabs 01/30/25 Unknown Rx oxycodone-acetaminophen 5 mg-325 1 tab PO Q6H PRN pain 3 days #12 01/30/25 Unknown Rx mg tablet (Percocet) tabs sulfamethoxazole 800 1 tab PO BID #6 TABLETS 02/02/25 Unknown Rx mg-trimethoprim 160 mg tablet Allergy/AdvReac Type Severity Reaction Status Date / Time quetiapine (From Seroquel) Allergy Chest Verified 03/11/25 18:08 tightness Surgical History History of lumpectomy Social History household members: family current occupational status: employed Smoking Status: Current every day smoker tobacco type: e-cigarettes ROS ROS ED ROS Narrative Denies recent illness. Constitutional Constitutional ED: Denies chills or fever(s) Eyes Eyes: Denies blurry vision ENT ENT ED: Denies ear pain Cardiovascular Cardiovascular: Denies chest pain Respiratory/Chest Respiratory/Chest: Denies cough or dyspnea Gastrointestinal Gastrointestinal: Denies abdominal pain Genitourinary Genitourinary ED: Denies dysuria Musculoskeletal Musculoskeletal: Denies arthralgias Integumentary Denies abscess Neurologic Neurologic: Denies headache(s) Psychiatric Psychiatric: Denies anxiety Endocrine Endocrinology: Denies heat intolerance Hematologic/Lymphatic Hematologic/Lymphatic: Denies easy bleeding Allergic/Immunologic Allergic/Immunologic ED: Denies mouth swelling, tongue swelling or urticaria EXAM Physical Exam Narrative Exam Narrative: Well-appearing 34-year-old female. Vital signs stable afebrile does not look septic toxic no acute distress. Sitting upright in bed. Comfortable. Female friend present at bedside. H EENT exam pupils round react light. Moist mutes membranes. Neck nontender no lymphadenopathy. No meningismus. Tattoos. Lungs clear to auscultation bilaterally. Heart regular rhythm no murmur. Chest wall ribs nontender. Abdomen soft nontender. Moving all 4 extremities. Nontender no edema. Normal range of motion. Back nontender. Neurologically she is awake alert. Answering questions following commands. Benign exam. Const Vital Signs: 03/11/25 18:05 Temperature 99.2 F H Temperature Source Oral Pulse Rate 120 H Respiratory Rate 20 H Blood Pressure 140/89 H Blood Pressure Mean 106 Pulse Ox 100 Oxygen Delivery Method Room Air MDM MDM MDM Narrative Medical decision making narrative: 34-year-old female positive urine test at home wants a serum test. Also like to be tested for STD. Serum test to be obtained. Urine for GC, chlamydia and trichomonas. Patient doing well on repeat exam at 7:40 PM. When urine test for STDs returns I will notify her if any of them are positive. We discussed her positive test. She will follow-up with TRUCK DRIVER SUPERVISOR. History & Record Review Discussion w/independent historian: Patient Additional record(s) reviewed:: Prior inpatient record, Prior outpatient record, Prior ED visit and Prior labs Lab Data Attestation: I reviewed the patient's lab results. Lab results narrative: Serum test positive. Urine negative for gonorrhea, chlamydia and trichomonas. Labs: Laboratory Results - last 24 hr 03/11/25 18:30 Serum , Qual POSITIVE Discharge Plan Triage Chief Complaint: ED Provider: Fran Nice Dx/Rx/DC Orders Clinical Impression: First trimester , History of factor V Leiden mutation Instructions: 1st Trimester Prescriptions: No Action lurasidone 20 mg tablet 20 mg PO QPM ibuprofen 600 mg tablet 600 mg PO 4X/DAY PRN (Reason: pain) Qty: 40 0RF oxycodone-acetaminophen [Percocet] 5-325 mg tablet 1 tab PO Q6H PRN (Reason: pain) 3 Days Qty: 12 0RF sulfamethoxazole-trimethoprim 800-160 mg tablet 1 tab PO BID Qty: 6 0RF doxycycline monohydrate 100 mg capsule 100 mg PO BID Qty: 14 0RF Primary Care Provider: Care Physician,No Primary Referrals: Nahum Ortega MD [Med Staff - Active Staff, Obstetrics-Gynecology (OBGYN)] - As soon as possible Care Physician,No Primary [Primary Care Provider, Medical] Activity Restrictions/Additional Instructions: Call and follow-up with a local TRUCK DRIVER SUPERVISOR soon as possible. Serum test was positive. Print Language: Kittitian Disposition Disposition: Home, Self Care Discharge Date/Time: 03/11/25 19:48
[2025-03-11 19:07] LABS: Internal QC Validated? YES +Cl - CLEAR BKGD; Record Kit Lot#, Serum Preg. 980607
[2025-03-11 19:10] LABS: Pregnancy, Serum, hCG Quali. POSITIVE Negative
--- NOTE | 2025-03-11 19:32 | ED.RN ---
called [facility] to inquire about labs, approx 1 hour.
== END 2025-03-11 19:48 | disposition home or self-care (01) ==
PROVIDERS: Emergency Provider Emergency Medicine; Visit Provider Emergency Medicine
DX: O99.111 Other diseases of the blood and blood-forming organs and certain disorders involving the immune mechanism complicating pregnancy, first trimester (principal); D68.51 Activated protein C resistance; F17.290 Nicotine dependence, other tobacco product, uncomplicated; Z86.718 Personal history of other venous thrombosis and embolism; Z3A.00 Weeks of gestation of pregnancy not specified; O99.330 Smoking (tobacco) complicating pregnancy, unspecified trimester
CPT/HCPCS: 36415; 84703; 87491; 87591; 87661; 99282

== ENCOUNTER 2025-03-29 18:38 | Emergency (ER) | payer SELFPAY ==
[2025-03-29 18:39] VITALS: BP 151/96; PULSE 93; RESP 18; TEMP 36.7; O2SAT 100; BMI 26.4
--- NOTE | 2025-03-29 18:53 | US_ITS ---
PROCEDURE: US/Transvaginal w/Preg US
--- NOTE | 2025-03-29 19:08 | ED.VIS.FEGU ---
HPI HPI - Female History of Present Illness Chief Complaint: Detail of Chief Complaint: Severe cramping pelvic pain Informant: patient Pain Pain: Positive for Pelvic Pain Onset: Today and Hours (2 to 3 hours prior to presentation) Context: Sudden Onset Timing: Continuous and Waxes and wanes Quality: Positive for Cramping Location: - (Pelvis) Current Severity: Mild Maximum Severity: Moderate Worsened by: - (Occurred while shopping) Bleeding Issue: Negative for Vaginal bleeding, Passing clots or Passing tissue Associated Symptoms Associated Symptoms: Positive for Frequency and Missed Period; Negative for Dysuria, Urgency or Hematuria Last known menstrual period: Patient is 6.5 weeks. Ultrasound last week revealed no IUP Test: Positive Sexually: Positive for Active and Single Partner Control: No control P: 3 Ab: 1 Narrative Narrative: Patient is a 34-year-old female who presents with cramping pelvic pain. She has a positive blood. She [facility] done [facility]. The ultrasound revealed no IUP. She does have a history of chlamydia infection in the remote past. She denies history of ectopic . She denies history ovarian cyst or endometriosis. Prior similar symptoms: No Recent Illness/Hospitalization: No PFSH PFS Medical History Presence of IVC filter Pulmonary embolism Paranoid schizophrenia Home Medications ?Medication ?Instructions ?Recorded ?Last Taken ?Type lurasidone 20 mg tablet 20 mg PO QPM 09/24/24 Unknown History doxycycline monohydrate 100 mg 100 mg PO BID #14 CAPSULES 12/23/24 Unknown Rx capsule ibuprofen 600 mg tablet 600 mg PO 4X/DAY PRN pain #40 tabs 01/30/25 Unknown Rx oxycodone-acetaminophen 5 mg-325 1 tab PO Q6H PRN pain 3 days #12 01/30/25 Unknown Rx mg tablet (Percocet) tabs sulfamethoxazole 800 1 tab PO BID #6 TABLETS 02/02/25 Unknown Rx mg-trimethoprim 160 mg tablet hydrocodone-acetaminophen 5-325mg 1 tab PO Q6H PRN PRN Pain 2 days 03/29/25 Unknown Rx 5mg-325mg #6 TABLETS Allergy/AdvReac Type Severity Reaction Status Date / Time quetiapine (From Seroquel) Allergy Chest Verified 03/29/25 18:39 tightness Surgical History History of lumpectomy Social History household members: family current occupational status: employed Smoking Status: Current every day smoker tobacco type: e-cigarettes ROS ROS ED Constitutional Constitutional ED: Denies chills, fever(s) or subjective Cardiovascular Cardiovascular: Denies chest pain or palpitations Respiratory/Chest Respiratory/Chest: Denies cough, dyspnea or dyspnea on exertion Gastrointestinal Gastrointestinal: Reports abdominal pain; Denies constipation, diarrhea, melena, nausea or vomiting Genitourinary Genitourinary ED: Reports urinary frequency; Denies dysuria or hematuria Musculoskeletal Musculoskeletal: Denies arthralgias, myalgias or neck pain Integumentary Denies abscess, Abrasions or rash Neurologic Neurologic: Reports headache(s) and other Details: No problems with motor function or coordination. No trouble with speech. ; Denies paresthesias or weakness Psychiatric Psychiatric: Reports anxiety Hematologic/Lymphatic Hematologic/Lymphatic: Denies easy bleeding or easy bruising EXAM Physical Exam Const Vital Signs: 03/29/25 18:39 Temperature 98.1 F Temperature Source Temporal Pulse Rate 93 Respiratory Rate 18 Blood Pressure 151/96 H Blood Pressure Mean 114 Pulse Ox 100 Oxygen Delivery Method Room Air Positive well nourished and well developed Constitutional Narrative: Appears anxious. She is rolling on the examination cot. She states the pain is a 3, however. General Appearance ED: well developed and pallor HEENT Reports moist mucous membranes HEENT Narrative: Head is atraumatic and normocephalic. Ears normal. Nares patent Eyes PERRL and EOMs intact bilaterally General Eye ED: Negative for pale conjunctiva or scleral icterus Neck no lymphadenopathy and no JVD Resp normal respiratory effort and clear to auscultation bilaterally Cardio regular rate, regular rhythm, S1 normal heart sound and no JVD GI normal to inspection, nondistended, normoactive bowel sounds, soft to palpation, non-distended and no masses; Negative for non-tender Palpation: tender suprapubic Back/Spine no CVA tenderness Extremity normal to inspection and full ROM Neuro oriented x3 and CN's II-XII intact bilaterally Sensorium / Orientation: alert Psych Mood & Affect: anxious Skin no rashes or lesions noted and no wounds General Skin Exam: pallor; Negative for jaundice MDM MDM MDM Narrative Medical decision making narrative: With prior history of STI, no IUP on ultrasound last week and now having abrupt onset of suprapubic pain more so on the left need to evaluate for ectopic . Also on the differential would be a ruptured ovarian cyst, torsion of the ovary. Patient has a positive blood. Ultrasound was ordered. Lab Data Attestation: I reviewed the patient's lab results. Lab results narrative: CBC is unremarkable. Quant is [id number],313. Labs: Laboratory Results - last 24 hr 03/29/25 19:09 WBC 7.6 RBC 4.05 L Hgb 13.0 Hct 37.0 MCV 91.4 MCH 32.1 H MCHC 35.1 RDW Std Deviation 42.2 RDW Coeff of Jarrod 12.8 Plt Count 266 MPV 9.9 Immature Gran % (Auto) 0.300 Neut % (Auto) 58.6 Lymph % (Auto) 30.7 Angelina % (Auto) 7.1 Eos % (Auto) 2.4 Baso % (Auto) 0.9 Absolute Neuts (auto) 4.5 Absolute Lymphs (auto) 2.33 Nucleated RBC % 0 HCG, Quant 95207 H Treatment and Re-Evaluation Narrative: Ultrasound has not been officially read. By review patient has small amount of fluid on the right side. Tech informed that there was flow to the right ovary. She agrees there is a gestational sac in the uterus. Spoke with Dr. Christensen since patient states she was seen at the [facility]. Dr. Christensen informed me that there is no record that she is a patient at the clinic. In light of this Dr. Bibiana Shen was paged. After further questioning was determined that she is a no doc. She was seen at the [facility] on [address] I was informed that there are no doctors there. Dr. Bibiana Shen looked at the ultrasound. She states she sees a yolk sac in the gestational sac. She would like the patient to call on Monday to be seen later in the week and have an ultrasound. Presume the small amount of fluid noted on the right side is due to a ruptured cyst in probably the side of her corpus luteal cyst. Discharge Plan Triage Chief Complaint: ED Provider: Hola Catherine Dx/Rx/DC Orders Clinical Impression: First trimester , Rupture of cyst of right ovary, Pelvic pain Instructions: : Weeks 6 to 10, ED Ovarian Cyst Prescriptions: New hydrocodone-acetaminophen 5-325 mg tablet 1 tab PO Q6H PRN PRN (Reason: Pain) 2 Days Qty: 6 0RF No Action lurasidone 20 mg tablet 20 mg PO QPM ibuprofen 600 mg tablet 600 mg PO 4X/DAY PRN (Reason: pain) Qty: 40 0RF oxycodone-acetaminophen [Percocet] 5-325 mg tablet 1 tab PO Q6H PRN (Reason: pain) 3 Days Qty: 12 0RF sulfamethoxazole-trimethoprim 800-160 mg tablet 1 tab PO BID Qty: 6 0RF doxycycline monohydrate 100 mg capsule 100 mg PO BID Qty: 14 0RF Primary Care Provider: Care Physician,No Primary Referrals: Bibiana Shen MD [Med Staff - Active Staff, Obstetrics-Gynecology (OBGYN)] - 3-5 Days Care Physician,No Primary [Primary Care Provider, Medical] Activity Restrictions/Additional Instructions: Call Dr. Bibiana Shen's office on Monday to be seen later this week. Print Language: Micronesian Disposition Disposition: Home, Self Care
--- NOTE | 2025-03-29 19:12 | ED.RN ---
pt declined morphine at this time.
[2025-03-29 19:17] LABS: Hematocrit 37.0 % (37-47); Hemoglobin 13.0 g/dL (12.0-15.0); Immature Granulocytes Count 0.020 X10^3/uL (0.0-0.0); Mean Corp Hgb Conc 35.1 g/dL (32-36); Mean Corpuscular Volume 91.4 fL (81-99); Mean Platelet Vol. 9.9 fl (6.2-12.0); NRBC Flagged by Analyzer 0 % (0-5); Platelet Count 266 K/mm3 (150-450); RBC Distribution Width CV 12.8 % (11.6-14.6); RBC Distribution Width SD 42.2 fl (35.1-43.9); Red Blood Count 4.05 M/mm3 (4.2-5.4); White Blood Count 7.6 K/mm3 (4.4-11.0)
[2025-03-29 20:35] LABS: hCG Titer Quant., Serum 52313 mIU/mL (<9 non-preg)
[2025-03-29] MEDS: HYDROcodone Bitartrate/Apap 5/325 Tablet PO (22:03)
[2025-03-29 22:09] VITALS: BP 155/74; PULSE 62; RESP 18; TEMP 36.7; O2SAT 94
== END 2025-03-29 22:09 | disposition home or self-care (01) ==
PROVIDERS: Emergency Provider Emergency Medicine; Visit Provider Emergency Medicine
DX: O26.891 Other specified pregnancy related conditions, first trimester (principal); Z79.899 Other long term (current) drug therapy; N83.201 Unspecified ovarian cyst, right side; O34.81 Maternal care for other abnormalities of pelvic organs, first trimester; R10.20 Pelvic and perineal pain unspecified side; Z3A.00 Weeks of gestation of pregnancy not specified; O99.331 Smoking (tobacco) complicating pregnancy, first trimester; F17.290 Nicotine dependence, other tobacco product, uncomplicated; O99.891 Other specified diseases and conditions complicating pregnancy
CPT/HCPCS: 76817; 84702; 85025; 93976; 96374; 96375; 99283; A4216; J2405

== ENCOUNTER → 2025-04-03 | Outpatient (CLI) | payer SELFPAY ==
[2025-04-09 14:08] LABS: Anti-Cardiolipin Ab, IgG, Qn < 9 GPL U/mL (0-14); Anti-Cardiolipin Ab, IgM, Qn 11 MPL U/mL (0-12); Antithrombin 3 Function 143 % (75-135); Beta-2-Glycoprotein I IgA <9 (0-25); Beta-2-Glycoprotein I IgG <9 (0-20); Beta-2-Glycoprotein I IgM <9 (0-32); Dilute Russell Viper Venom 36.0 sec (0.0-47.0); Interpretation Comment: (.); PTT-LA 29.0 sec (0.0-43.5)
== END | disposition home or self-care (01) ==
PROVIDERS: Visit Provider Obstetrics & Gynecology
DX: O09.90 Supervision of high risk pregnancy, unspecified, unspecified trimester (principal); Z3A.00 Weeks of gestation of pregnancy not specified; Z86.718 Personal history of other venous thrombosis and embolism
CPT/HCPCS: 36415; 81241; 84439; 84443; 85300; 86146; 86147

== ENCOUNTER 2025-04-09 07:11 | Day surgery (SDC) | payer SELFPAY ==
[2025-04-08] MEDS: Lactated Ringers 1,000 ML 15 ML IV (13:30)
--- NOTE | 2025-04-08 14:04 | PCM.HP.BLA ---
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 Required: No Is patient in pain?: Yes (lower back pain) Allergies Latex, Natural Rubber Allergy (Mild, Verified 04/03/25 08:06) Itching quetiapine (From Seroquel) Allergy (Verified 04/03/25 08:06) Chest tightness Last Menstrual Period: 02/06/25 Zika: Zika virus screening: Negative : No PFSH PFSH Medical History Hx of chlamydia infection History of claustrophobia Presence of IVC filter Pulmonary embolism Paranoid schizophrenia Surgical History H/O LEEP History of lumpectomy Family History Father Cancer, Onset Age: 62 esophagus cancer Mother Brain tumor from huffing gasoline Social History adopted: Yes housing: apartment current occupational status: employed 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 pets and animals: No history of recent travel: No sexually active: Yes Smoking Status: Current every day smoker tobacco type: e-cigarettes quit status: considering quitting alcohol intake: never substance use type: former substance user Date of last use: Quit 2 days before and marijuana well-balanced diet: daily or most days caffeine: Yes Type: tea Number of servings: 3 eating out: rarely or never during the past year weight has: decreased > 10 lbs what type of physical activity do you participate in: none shashank/roman catholic: Jain seatbelt use: always do you feel safe at home: Yes additional social history: PURNIMA Rodriguez Nephera History 5 Elective abortions Hx Para 3 Spontaneous abortions 1 Hx # Term Pregnancies Ectopic pregnancies Hx # Pregnancies Multiple births # of living children 3 Past Pregnancies Del. Date Name GA/Weeks Outcome Route Bth Weight Infant Gen Labor Lgth Anesthesia Del Locatn Provider FOB Unknown 2016 Miscarriage 8 spontaneous 10/28/12 Raydilip 38 live - full term vacuum 6#14oz Male epidural [facility] Jeffry Porras 12/25/13 Khanh 41 live - full term 7#14oz Male epidural [facility] Jeffry Porras 04/09/19 Jeanette live - full term 7#6oz Male epidural [facility] Delivery Date: 12/25/13 Last Updated by: Farnaz Godinez IOl post dates, HTN Delivery Date: 04/09/19 Last Updated by: Farnaz Godinez blood clot HPI Details: HPI: Leigh Porras is a 34 y/o @ 8 weeks gestation who was found to have a missed in the office setting yesterday with Dr. Shen. She is scheduled today for a suction dilation and curettage. The patient is a female with a history of IVC filter placement presenting for evaluation of a missed miscarriage. Missed Miscarriage, denies vaginal bleeding or cramping, no fevers - Patient presents with a missed miscarriage; no heart tones detected on ultrasound. - Gestational sac is measuring 14mm by 28mm with a yolk sac present; crown-rump length is 4.6mm, consistent with the previous measurement of 5mm. - No color Doppler flow seen within the gestational sac or crown-rump length. - No history of D&C, previous 8 week miscarriage. History - Patient has had three pregnancies - Patient has an IVC filter in place and is not on any blood thinners. Past Medical History - IVC filter placement. Subjective Sections: PMHx - Blood clot after last delivery PSHx - IVC filter placement - Denies D&C surgery Social Hx - Number of children: Has children ROS: Constitutional: (+) malaise, (+) fatigue no chest pain, shortness of breath no vaginal bleeding or cramping no extremity pain or edema PhysicalExam: GENERAL: Pleasant; in no apparent distress BREAST: soft, non-tender, symmetric, no dominant mass, normal nipple-areolar complex, no lymphadenopathy, no nipple discharge PULMONARY: normal inspiratory effort ABDOMEN: soft, non-tender, no masses. YESTERDAY scan: Gestational sac measuring 14 millimeters by 28 millimeters; yolk sac present; crown-rump length 4.6 millimeters consistent with previous measurement of 5 millimeters; no heart tones auscultated; no color Doppler flow detected within the gestational sac or crown-rump length. NEURO: alert and oriented x3 EXTREMITIES: normal Assessment/Plan: # Missed (O02.1): - demise confirmed by ultrasound with no detectable cardiac activity; crown rump length unchanged from prior measurement. - Discussed management options including expectant approach, medical therapy, and dilation and curettage. - Patient elected surgical intervention; scheduled D&C for tomorrow. - Reviewed procedural risks including bleeding, infection, and uterine perforation. - Advised no oral intake for 8 hours preoperatively, clear liquids up to 2 hours before arrival. - Provided letter excusing patient from work; patient will resume normal activities following a brief postoperative recovery period. - Offered referral to local bereavement resources ([id number]) for emotional support. # Presence of inferior vena cava filter (Z95.828): - Acknowledged existing IVC filter placed after previous complication; patient not on anticoagulation. - Coordinating with vascular surgery (Dr. Egan) to ensure safe perioperative management and to discuss potential future removal of filter.
[2025-04-08 14:05] VITALS: BP 117/67; PULSE 53; RESP 16; TEMP 37.5; O2SAT 100; BMI 25.5
[2025-04-08 14:06] LABS: Hematocrit 40.0 % (37-47); Hemoglobin 13.5 g/dL (12.0-15.0); Mean Corp Hgb Conc 33.8 g/dL (32-36); Mean Corpuscular Volume 93.5 fL (81-99); Mean Platelet Vol. 10.1 fl (6.2-12.0); Platelet Count 269 K/mm3 (150-450); RBC Distribution Width CV 12.9 % (11.6-14.6); RBC Distribution Width SD 44.2 fl (35.1-43.9); Red Blood Count 4.28 M/mm3 (4.2-5.4); White Blood Count 7.0 K/mm3 (4.4-11.0)
[2025-04-08 14:17] LABS: Barbiturate Urine NEGATIVE (< 200 ng/mL); Benzodiazepine Urine NEGATIVE (< 200 ng/mL); PCP Urine NEGATIVE (< 25 ng/mL); THC Urine PRESUMPTIVE POSITIVE (< 50 ng/mL)
--- NOTE | 2025-04-08 14:17 | PRE.ANES_ITS ---
ASA Classification* ASA Classification ASA Classification: 3 (Hx PE s/p IVC filter, smoker, (+) vape and THC, ) Assessment & Plan Anesthesia* Anesthesia Assessment Anesthesia Assessment: Discussed sedation and/or anesthesia options, risks, benefits, and alternatives with patient/parents/legal guardian/POA. Questions invited. The patient/parents/legal guardian/POA seems to understand and agrees to proceed with anesthesia plan. Reviewed the physical assessment, medical history, allergy history and patient home medications list prior to surgery/procedure/anesthetic and documented any changes. Performed airway and anesthesia risk assessments. Procedural Plan Procedural Plan:: Surgeon canceled surgery Add'l anesthesia plan details: Patient not NPO - coffee with cream at 11 AM. Rescheduled to tomorrow Anesthesia Type Anesthesia Type: General History Source History Obtained from:: Patient and Chart Anesthesia Focused Assessment* Temperature: 99.5 F Pulse Rate: 53 Blood Pressure: 117/67 Respiratory Rate: 16 Pulse Ox: 100 Oxygen Delivery Method: Room Air Airway Assessment Mouth opens: >3 cm Mallampati Score: II Teeth Condition: Intact Neck Range of motion (ROM): Full ROM Labs Anesthesia Preop lab: CBC WBC, (4.4-11.0) 7.0 K/mm3 Today, 13:55 RBC, (4.2-5.4) 4.28 M/mm3 Today, 13:55 Hgb, (12.0-15.0) 13.5 g/dL Today, 13:55 Hct, (37-47) 40.0 % Today, 13:55 Plt Count, (150-450) 269 K/mm3 Today, 13:55 CHEMISTRY Potassium, (3.5-5.1) 3.2 mmol/L L 04/15/24, 14:52 Sodium, (136-145) 141 mmol/L 04/15/24, 14:52 BUN, (7-18) 14 mg/dL 04/15/24, 14:52 Creatinine, (0.55-1.02) 0.83 mg/dL 04/15/24, 14:52 Glucose, (74-106) 105 mg/dL 04/15/24, 14:52 TSH, (0.300-4.200) 2.250 uIU/mL 04/03/25, 08:54 COAG HCG, Quant, (<9 non-preg) 15767 mIU/mL H 03/29/25, 19:0 9 Urine Test Negative Negative 02/02/25, 11:16 Pre-Assessment Diagnosis/Proposed Procedure Planned Operative Procedure(s): Hysteroscopy,D&C Symphion Anesthesia History Anesthesia History - bus info consultant: Anesthesia History - bus info consultant Hx Hospitalization No 04/07/25 15:45 Any Problems With Anesthesia No 04/07/25 15:45 Cholinesterase deficiency No 04/07/25 15:45 You/Your Family Experience No 04/07/25 15:45 fever (hyperthermia) with Relationship Recent Exposure to Contagious No 04/08/25 14:05 Disease Does patient have nerve No 04/07/25 15:45 stimulator Patient instructed to have device shut off --Does patient have Pacemaker No 04/08/25 14:05 or ICD? When Was Last Pacemaker Check QUESTION #4 FULL TEXT: You/Your Family Experience fever (hyperthermia) with Anesthesia Last Oral Intake Last Oral intake: Last Oral Intake NPO since 10:30 04/08/25 14:05 Meds taken in AM with sips of Yes 04/08/25 14:05 water? Meds patient instructed to take am of surgery PONV PONV - bus info consultant: PONV - bus info consultant Female Yes 04/07/25 15:45 HX of Motion Sickness Yes 04/07/25 15:45 HX of N/V After Surgery No 04/07/25 15:45 Non-Smoker No 04/07/25 15:45 Duration of Surgery greater No 04/07/25 15:45 than 60 minutes Number of Risk Factors 2 04/07/25 15:45 PONV Score Moderate Risk 04/07/25 15:45 Height & Weight Height & Weight: Anesthesia: Height & Weight Height 5 ft 3 in 04/08/25 14:05 Weight: 65.5 kg 04/08/25 14:05 Body Mass Index (BMI) 25.5 04/08/25 14:05 Respiratory Assessment Respiratory Assessment - bus info consultant: Respiratory Tract Infection Hx - bus info consultant Hx Respiratory Tract Infection No 04/07/25 15:45 STOP Sleep Apnea STOP Sleep Apnea - bus info consultant: STOP Sleep Apnea - bus info consultant Hx Hypertension No 04/07/25 15:45 Hx Sleep Apnea No 04/07/25 15:45 CPAP BIPAP Do you snore loudly (louder No 04/07/25 15:45 than talking or can be heard Do you often feel tired/ No 04/07/25 15:45 fatigued/ sleepy during daytime? Has anyone observed you stop No 04/07/25 15:45 breathing during sleep? STOP Results Negative 04/07/25 15:45 QUESTION #5 FULL TEXT : Do you snore loudly (louder than talking or can be heard through closed doors)? 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 Specify any problems Hx of Preganancy in last 3 No 04/07/25 15:45 Months Nurse Filling Out Transfusion [id number] 04/07/25 15:45 & Questions: Date: 04/07/25 04/07/25 15:45 Time: 15:46 04/07/25 15:45 Patient unable to answer at this time (ie. confused, unrespo /Reproduction History /Reproductive History - bus info consultant: /Reproductive Hx- bus info consultant Hx Now No 04/07/25 15:45 Gestational Age (in weeks): EDC: Hx Hx Para Hx Section SAB No 04/07/25 15:45 Does the father of the baby or his family experience fever w Father of the baby Malignant Hypertension history comment Active Medications Active Medications: Current Medications Generic Name Dose Route Start Last Admin Trade Name Freq PRN Reason Stop Dose Admin Doxycycline Monohydrate 100 mg 04/08/25 14:30 04/08/25 14:12 Doxycycline 100 Mg Capsule PO 04/08/25 14:31 100 mg X1 ONE Administration Lactated Ringer's 1,000 mls @ 15 mls/hr 04/08/25 13:30 04/08/25 13:30 IV 15 mls/hr .Q48H [place] Administration PFSH Medical History (Updated 04/07/25 @ 15:45 by Raquel Noe) Wears glasses Heartburn Smoker Hx of chlamydia infection History of claustrophobia Presence of IVC filter Pulmonary embolism Paranoid schizophrenia Home Medications Medication Instructions Recorded Last Taken Type lurasidone 20 mg tablet 40 mg PO QPM 09/24/24 Unknow n History PNV 153-FA 400 mcg-om3 35 mg-dha 1 tab PO .QD 04/02/25 Unknown History 25 mg-epa 5 mg-fish oil chew tablet Allergy/AdvReac Type Severity Reaction Status Date / Time Latex, Natural Rubber Allergy Mild Itching Verified 04/07/25 15:41 quetiapine (From Seroquel) Allergy Chest Verified 04/07/25 15:41 tightness Family History Father Cancer, Onset Age: 62 esophagus cancer Mother Brain tumor from huffing gasoline Surgical History H/O LEEP History of lumpectomy Social History adopted: Yes housing: apartment current occupational status: employed 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 pets and animals: No history of recent travel: No sexually active: Yes Smoking Status: Current every day smoker tobacco type: e-cigarettes quit status: considering quitting alcohol intake: never substance use type: former substance user Date of last use: Quit 2 days before and marijuana well-balanced diet: daily or most days caffeine: Yes Type: tea Number of servings: 3 eating out: rarely or never during the past year weight has: decreased > 10 lbs what type of physical activity do you participate in: none shashank/adventism: Samaritan seatbelt use: always do you feel safe at home: Yes additional social history: PURNIMA Brennan- bill Review of Systems (Anesthesia) ROS Narrative System reviewed and no additional complaints, except as documented. Physical Exam Const alert, oriented x3 and average body habitus Resp normal respiratory effort, normal air movement and clear to auscultation bilaterally Cardio regular rate, regular rhythm and no murmurs; Negative for diaphoretic
[2025-04-08 14:21] VITALS: BP 117/67; PULSE 53; RESP 16; TEMP 37.5; O2SAT 100
[2025-04-08 14:31] LABS: AST(SGOT) 18 U/L (<=31); Alanine Aminotransfer ALT/SGPT 11 U/L (<=34); Albumin, Serum 4.4 g/dL (3.5-5.0); Alkaline Phosphatase 36 U/L (35-104); Anion Gap 10 (5-15); BUN 11 mg/dL (4-19); BUN/Creat Ratio 16.6 RATIO (10-20); Calcium,Total 9.8 mg/dL (7.6-11.0); Carbon Dioxide 23.8 mmol/L (21.0-32.0); Chloride 102 mmol/L (98-108); Estimated Creatinine Clearance 113.77 ml/min (50-250); Globulin 2.8 g/dL (2.2-4.2); Glucose 87 mg/dL (70-99); Potassium 3.9 mmol/L (3.3-5.1)
--- NOTE | 2025-04-08 15:25 | SUR.PREOP ---
pt drank coffee with cream. cancelled and rescheduled for tomorrow.
[2025-04-09] VITALS (9 sets, daily range): BP systolic 95–139; BP diastolic 61–80; PULSE 50–75; RESP 16–18; TEMP 36.6–37.7; O2SAT 97–100; BMI 25.7
--- OUTSIDE RECORDS SUMMARY | 2025-04-09 07:18 | XMS RPT_ITS | CCD ---
Author Organization [facility] Care Team Providers Care Cuff Maker Name Role Phone GISELA HENAO Unavailable Unavailable TAMI HALL Unavailable Unavailable PHYSICIAN, UNASSIGNED Unavailable Unavailabl e [email or web address] Unavailable Unavailable HORTENCIA PEREZ Unavailable Unavailable Unavailable Primary Care Provider UnavailOSBALDO Kamara Referring Unavailable CAITLINRABIA HILL S Consulting Unavailable PARIEVENS GRIS Attending Unavailable PARINJA, GRIS Admitting Unavailable JUSTIN AMES Referring Unavailable EICECELIA PALAFOX Attending Unavailable OSBALDO TERAN Attending Unavailable Unavailable Primary Care Provider UnavailThania Singh MD Primary Care Provider THANIA VILLEGAS Attending Unavailable JUAN VILLEGASE Referring Unavailable GABRIELE THANIA Primary Care Unavailable GABRIELE THANIA Primary Care Unavailable THANIA VILLEGAS Attending Unavailable THANIA VILLEGAS Referring Unavailable LISA HUNTERI Attending Unavailable LISA HUNTERI Referring Unavailable GABRIELE THANIA Primary Care Unavailable KITTY HAIRSTON Attending Unavailable KITTY HAIRSTON Referring Unavailable GABRIELE THANIA Primary Care Unavailable IVÁN AUNG Attending Unavailable MINOR, AUNG Referring Unavailable GABRIELE THANIA Primary Care Unavailable MINORSANDYAUNG Attending Unavailable MINOR, AUNG Referring Unavailable GABRIELE THANIA Primary Care Unavailable KITTY HAIRSTON Admitting Unavailable KITTY HAIRSTON Attending Unavailable SHAHZAD WALKER Admitting Unavailable SHAHZAD WALKER Attending Unavailable THANIA VILLEGAS Primary Care Unavailable LINDA WHITEHEAD Admitting Unavailable LINDA WHITEHEAD Attending Unavailable ELSA, JEANIE Referring Unavailable SADOUN, THANIA Attending Unavailable SADOUN, THANIA Primary Care Unavailable TIMOTHY MENDEZREY Attending Unavailable TIMOTHY MENDEZREY Referring Unavailable SHAHZAD WALKER Attending Unavailable JAMAICAOESHAHZAD MCCORMACK Referring Unavailable SADOUN, THANIA Primary Care Unavailable [...] Unavailable PROVIDER, UNKNOWN Consulting Unavailable LUCIANO III, [facility] Primary Care Unav ailable LUCIANO III, [facility] Primary Care Unav ailable Care Physician, No Primary Primary Care Provider Unavailable Dr. Jerod Davis DO Emergency Provider AndDr. Jerod quezada DO Attending Provider Dr. Kyle Fan MD Emergency Provider Care Physician, No Primary Primary Care Provider Unavailable Dr. Kyle Fan MD Attending Provider AndDr. Jerod quezada DO Emergency Provider Care Physician, No Primary Primary Care Physicia n Unavailable Dr. Kyle Fan MD Attending Physician Dr. Kyle Fan MD Emergency Department Phys ician Dr. Jerod Davis DO Attending Physician Dr. Jerod Davis DO Emergency Department Physic sukhdev Tex MATTA, Dr. Peters Attending Physician Dr. Fran Nice MD Emergency Department Physici an Care Physician, No Primary Primary Care Unava ilable Daniel Ch Attending Unavailable Care Physician, No Primary Primary Care Unava ilable Mary Winston Attending Unavailabl e Care Physician, No Primary Primary Care Unava ilable Fran Nice Attending Unavailable Jerod Davis Attending Unavailable Care Physician, No Primary Primary Care Unava ilable Care Physician, No Primary Primary Care Unava ilable Bibiana Shen Attending Unavailable Jerod Davis Attending Unavailable Care Physician, No Primary Primary Care Unava ilable Care Physician, No Primary Referring Unava ilable Care Physician, No Primary Primary Care Unava ilable Bibiana Shen Attending Unavailable Care Physician, No Primary Referring Unava ilable Care Physician, No Primary Primary Care Unava ilable Bibiana Shen Attending Unavailable Kyle Fan Attending Unavailable Care Physician, No Primary Primary Care Unava ilable Care Physician, No Primary Primary Care Unava ilable Fran Nice Attending Unavailable Care Physician, No Primary Primary Care Unava ilable Catherine, Hola Attending Unavailable Kyle Fan Attending Unavailable Care Physician, No Primary Primary Care Unava ilable Allergies Allergy Classification Reported Allergen(s) Allergy Type Date of Onset Reaction(s) Facility (9 sources) QUEtiapine Drug Allergy 2 Shortness Of Breath [facility] (6 sources) Latex; Translations: [LATEX] Propensity to adverse reactions to drug 7 Itching [facility] (1 source) Ciprofloxacin Drug Allergy 3 Muscle Aches [facility] (1 source) 08/11/2018 (-) MRSA SCREEN NARES; Translations: [08/11/2018 (-) MRSA SCREEN NARES] Propensity to adverse reactions (disorder) [facility] (1 source) natural latex rubber Drug allergy (disorder) 5 [facility] (1 source) QUEtiapine Drug Allergy 5 [facility] Medications Current Medications Medication Drug Class(es) Dates Sig (Normalized) Sig (Original) acetaminophen 500 mg oral tablet (1 source) Start: 10-05-2020 acetaminophen (TYLENOL) tablet 500 mg acetaminophen 325 mg / oxyCODONE hydrochloride 5 mg oral tablet (3 sources) Opioid Agonist Start: 01-30-2025 take 1 tablet by mouth every six hours as needed for pain amphetamine aspartate 2.5 mg / amphetamine sulfate [...] Active doxycycline monohydrate 100 mg oral capsule (9 sources) Tetracycline-class Drug Start: 12-23-2024 take 1 capsule by mouth twice daily Start: 09-08-2024 End: 09-13-2024 take 1 tablet [...] 11/30/2022 Active ibuprofen 600 mg oral tablet (7 sources) Nonsteroidal Anti-inflammatory Drug Start: 01-30-2025 take 1 tablet by mouth four times daily as needed for pain Start: 10-05-2020 take 1 tablet by magali [...] Active lurasidone hydrochloride 20 mg oral tablet (5 sources) Atypical Antipsychotic Start: 09-24-2024 take 1 tablet by mouth once daily in the evening melatonin 5 mg disintegrating oral tablet (1 [...] oral tablet (1 source) Start: 08-07-2021 potassium chloride (KLOR-CON M) extended release tablet 40 mEq sulfamethoxazole 800 mg / trimethoprim 160 mg oral tablet (7 sources) Dihydrofolate Reductase Inhibitor Antibacterial, Sulfonamide Antimicrobial Start: 02-02-2025 Start: 04-21-2020 End: 04-15-2024 Sulfamethoxazole-Trimethopri m 1 TABLET tablet Discontinued 1 {tbl} PO TWICE A DAY 6 0 April 21, 2020 1:00am April 15, 2024 3:56pm vortioxetine 10 mg oral tablet (1 source) take 1 tablet by magali th once daily Vortioxetine (TRINTELLIX) 10 MG TABS tablet Take 10 mg by mouth daily. 0 Active Completed/Discontinued Medications Medication Drug Class(es) Dates Sig (Normalized) Sig (Original) cefTRIAXone 250 mg injection (1 source) Cephalosporin Antibacterial Start: 11-23-2022 End: 11-23-2022 cefTRIAXone (ROCEPHIN) IM injection 1 g ciprofloxacin 3 mg/ml ophthalmic solution (5 sources) Quinolone Antimicrobial Start: 09-24-2024 End: 12-23-2024 Ciprofloxacin Hcl 0.3 % drops Discontinued 2 NMA EACH EYE 4 TIMES DAILY 10 7 0 September 24, 2024 12:00am December 23, 2024 10:39pm dicyclomine hydrochloride 10 mg oral capsule (5 sources) Anticholinergic Start: 04-15-2024 End: 09-24-2024 take [...] mg ondansetron 4 mg disintegrating oral tablet (9 sources) Serotonin-3 Receptor Antagonist Start: 04-15-2024 End: [...] 01/17/2017 Active 50 ml sodium chloride 9 mg/m l injection (1 source) Start: 11-23-2022 End: 11-23-2022 sodium chloride 0.9% bolus 0 .9 % solution 1,000 mL Problems Active Problems Problem Classification Problem Date Documented Da te Episodic/Chronic Anxiety disorders (5 sources) Posttraumatic stress disorder; Translations: [Post-traumatic stress [...] 10-10-2022 Chronic Crushing injury or internal injury (5 sources) Crush injury of right hand; Translations: [...] suicidal ideation] Onset: 08-07-2021 Chronic Mood disorders (2 sources) Mood disorders; Translations: [Depression, unspecified] Onset: 10-10-2022 Nausea and vomiting (2 sources) Nausea; Translations: [Nausea and vomiting] Onset: 12-08-2017 11-02-2023 Episodic Other aftercare (2 sources) Other fdc (current) drug therapy; Translations: [Other fdc (current) drug therapy] Onset: 01-23-2023 Episodic Other circulatory disease (1 source) Inferior vena cava filter in situ; Translations: [Presence of other vascular implants and grafts] Onset: 12-26-2021 10-10-2022 Chronic Other circulatory disease (2 sources) Presence of other vascular implants and grafts; Translations: [Presence of other vascular implants and grafts] Onset: 10-10-2022 Chronic Other complications of (2 sources) Supervision of high risk , unspecified, unspecified trimester; Translations: [Supervision of high risk , unspecified, unspecified trimester] Onset: 04-07-2025 Episodic Other complications of (1 source) Missed ; Translations: [Missed ] Onset: 04-07-2025 Episodic Other complications of (1 source) Other diseases of the blood and blood-forming organs and certain disorders involving the immune mechanism complicating , first trimester; Translations: [Other diseases of the blood and blood-forming organs and certain disorders involving the immune mechanism complicating , first trimester] Onset: 03-18-2025 Episodic Other ear and sense organ disorders (1 source) Acute otitis externa of right ear; Translations: [Unspecified acute noninfective otitis externa, right ear] 09-08-2024 Episodic Other female genital disorders (1 source) Personal history of other diseases of the female genital tract; Translations: [Personal history of other diseases of the female genital tract] Onset: 04-07-2025 Episodic Other female genital disorders (1 source) Recurrent loss; Translations: [Recurrent loss] Onset: 04-07-2025 Episodic Other hematologic conditions (1 source) H/O: blood disorder; Translations: [Personal history of diseases of the blood and blood-forming organs and certain disorders involving the immune mechanism] 03-19-2025 Episodic Other lower respiratory disease (1 source) Nodule of lung; Translations: [Solitary pulmonary nodule] Onset: 10-10-2022 10-10-2022 Episodic Other and delivery including normal (2 sources) First trimester ; Translations: [Encounter for supervision of normal , unspecified, first trimester] Onset: 04-03-2025 03-19-2025 Episodic Other screening for suspected conditions (not mental disorders or infectious disease) (3 sources) Abnormal findings on diagnostic imaging of skull and head, not elsewhere classified; Translations: [Encounter for screening mammogram for malignant neoplasm of breast] Onset: 10-10-2022 Episodic Other upper respiratory disease (1 source) Lesion of nose; Translations: [Other specified disorders of nose and nasal sinuses] 09-08-2024 Episodic Ovarian cyst (1 source) Unspecified ovarian cyst, right side; Translations: [Unspecified ovarian cyst, right side] Onset: 04-03-2025 Episodic Phlebitis; thrombophlebitis and thromboembolism (4 sources) H/O: Deep vein thrombosis; Translations: [Personal history of other venous thrombosis and embolism] Onset: 12-26-2021 10-10-2022 Episodic Pulmonary heart disease (2 sources) H/O: pulmonary embolus; Translations: [Personal history of pulmonary embolism] 01-31-2025 Episodic Residual codes; unclassified (2 sources) Other specified postprocedural states; Translations: [Other specified postprocedural states] Onset: 10-10-2022 Episodic Residual codes; unclassified (1 source) Personal history of other complications of , childbirth and the puerperium; Translations: [Personal history of other complications of , childbirth and the puerperium] Onset: 04-07-2025 Episodic Residual codes; unclassified (1 source) 8 weeks gestation of ; Translations: [8 weeks gestation of ] Onset: 04-07-2025 Episodic Residual codes; unclassified (1 source) Family history of other mental and behavioral disorders; Translations: [Family history of other mental and behavioral disorders] Onset: 04-07-2025 Episodic Schizophrenia and other psychotic disorders (10 sources) Schizoaffective disorder, bipolar type; Translations: [Schizoaffective disorder, bipolar type] Onset: 08-08-2021 08-08-2021 Chronic Substance-related disorders (3 sources) Stimulant dependence; Translations: [Other stimulant dependence, in remission] Onset: 08-08-2021 10-10-2022 Chronic Substance-related disorders (2 sources) Stimulant abuse; Translations: [Other stimulant use, unspecified, uncomplicated] Onset: 08-08-2021 08-08-2021 Episodic Superficial injury; contusion (10 sources) Abrasion of cornea of right eye; Translations: [Injury of conjunctiva and corneal abrasion without foreign body, right eye, initial encounter] Onset: 09-30-2024 09-24-2024 Episodic Unclassified (1 source) Other specified postprocedural states; Translations: [OTHER SPECIFIED POSTPROCEDURAL STATES] Onset: 12-08-2017 Unclassified (1 source) Pelvic and perineal pain unspecified side; Translations: [Pelvic and perineal pain unspecified side] Onset: 04-03-2025 Urinary tract infections (17 sources) Urinary tract infection, site not specified; Translations: [Acute cystitis] Onset: 12-08-2017 Episodic Viral infection (1 source) Papillomavirus as the cause of diseases classified elsewhere; Translations: [Papillomavirus as the cause of diseases classified elsewhere] Onset: 04-07-2025 Episodic Past or Other Problems Problem Classification Problem Date Documented Da te Episodic/Chronic Abdominal pain (8 sources) Pain in pelvis; Translations: [Pelvic and [...] of diseases classified elsewhere] Onset: 10-26-2022 Episodic Inflammatory diseases of female pelvic organs (6 sources) Acute parametritis and pelvic cellulitis; Translations: [Vaginitis] Onset: 11-16-2022 12-23-2024 Episodic Other lower respiratory disease (1 source) Solitary pulmonary nodule; Translations: [Solitary pulmonary nodule] Onset: 10-10-2022 Episodic Other upper respiratory infections (6 sources) Viral upper respiratory tract infection; Translations: [Acute upper respiratory infection, unspecified] Onset: 06-19-2024 05-28-2024 Episodic Suicide and intentional self-inflicted injury (2 sources) Suicidal ideations; Translations: [SUICIDAL IDEATIONS] Onset: 12-08-2017 Episodic Results Test Name Value Interpretation Reference Range Facility Wax Pattern Repairer Office Visit Reporton 04-07-2025 Wax Pattern Repairer Office Visit Report [facility] [address], [address] [place] [address] OFFICE VISIT Date of Service: 04/07/25 MR#: [id number] Acct: [id number] Name: PRANEETH PORRAS Rep #: [id number] : 1990 Provider: Dr. Bibiana horowitz MD Age/Sex: 34/F Location: [facility] [place] Status: Signed Intake Vital Signs 04/03/25 07:51 04/07/25 11:47 Height 5 ft 3 in 5 ft 3 in Weight: 143 lb 7 oz 146 lb 2 oz BMI 25.4 25.9 BP 145/89 H 142/92 H Intake Visit Reasons: Rescan per Biological Plant Operator Required: No Is patient in pain?: Yes (lower back pain) Allergies Latex, Natural Rubber Allergy (Mild, Verified 04/03/25 08:06) Itching quetiapine (From Seroquel) Allergy (Verified 04/03/25 08:06) Chest tightness Last Menstrual Period: 02/06/25 Zika: Zika virus screening: Negative : No PFSH PFSH Medical History Hx of chlamydia infection History of claustrophobia Presence of IVC filter Pulmonary embolism Paranoid schizophrenia Surgical History H/O LEEP History of lumpectomy Family History Father Cancer, Onset Age: 62 esophagus cancer Mother Brain tumor from huffing gasoline Social History adopted: Yes housing: apartment current occupational status: employed 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 pets and animals: No history of recent travel: No sexually active: Yes Smoking Status: Current every day smoker tobacco type: e-cigarettes quit status: considering quitting alcohol intake: never substance use type: former substance user Date of last use: Quit 2 days before and marijuana well-balanced diet: daily or most days caffeine: Yes Type: tea Number of servings: 3 eating out: rarely or never during the past year weight has: decreased > 10 lbs what type of physical activity do you participate in: none shashank/shinto: Samaritan seatbelt use: always do you feel safe at home: Yes additional social history: 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 Date Name GA/Weeks Outcome Route Bth Weight [facility] F[facility] Miscarriage 8 spontaneous 10/28/12 Rayden 38 live - full term vacuum 6#14oz Male epidural [facility] Jeffry [facility] 12/25/13 Khanh 41 live - full term 7#14oz [facility] Saqibiel live - full term 7#6oz Male epidural Pomerene Delivery Date: 12/25/13 Last Updated by: Farnaz Godinez IOl post dates, HTN Delivery Date: 04/09/19 Last Updated by: Farnaz Godinez blood clot HPI Rescan per Details: HPI: The patient is a female with a history of IVC filter placement presenting for evaluation of a missed miscarriage. Missed Miscarriage, denies vaginal bleeding or cramping, no fevers - Patient presents with a missed miscarriage; no heart tones detected on ultrasound. - Gestational sac is measuring 14mm by 28mm with a yolk sac present; crown-rump length is 4.6mm, consistent with the previous measurement of 5mm. - No color Doppler flow seen within the gestational sac or crown-rump length. - Patient reports feeling unwell and sleeping all day yesterday. - No history of D amp;C, previous 8 week miscarriage. History - Patient has had three pregnancies - Patient has an IVC filter in place and is not on any blood thinners. Past Medical History - IVC filter placement. Subjective Sections: PMHx - Blood clot after last delivery PSHx - IVC filter placement - Denies D C surgery Social Hx - Number of children: Has children ROS: Constitutional: (+) malaise, (+) fatigue PhysicalExam: GENERAL: Pleasant; in no apparent distress BREAST: soft, non-tender, symmetric, no dominant mass, normal nipple-areolar complex, no lymphadenopathy, no nipple discharge PULMONARY: normal inspiratory effort ABDOMEN: soft, non-tender, no masses. Gestational sac measuring 14 millimeters by 28 millimeters; yolk sac present; crown-rump length 4.6 millimeters consistent with previous measurement of 5 millimeters; no heart tones auscultated; no color Doppler flow detected within the gestational sac or crown-rump length. : - PELVIC: external genitalia normal, normal Bartholin's glands, urethra, Jayuya's glands, no vulvar lesions, no cervical lesions, good vaginal support, physiologic discharge present, normal appearing p (more content not included)... Normal [facility] Wax Pattern Repairer Office Visit Reporton 04-03-2025 Wax Pattern Repairer Office Visit Report [facility] [address], [address] [place] [address] OFFICE VISIT Date of Service: 04/03/25 MR#: [id number] Acct: [id number] Name: PRANEETH PORRAS Rep #: [id number] : 1990 Provider: Dr. Bibiana horowitz MD Age/Sex: 34/F Location: [facility] [place] Status: Signed Intake Vital Signs 03/29/25 18:39 04/03/25 07:51 Height 5 ft 3 in 5 ft 3 in Weight: 143 lb 7 oz BMI 25.4 BP 145/89 H Intake Visit Reasons: NEW* OB ER f/u LMP 02/06 ENA 11/13 Biological Plant Operator Required: No Is patient in pain?: No Allergies Latex, Natural Rubber Allergy (Mild, Verified 04/03/25 08:06) Itching quetiapine (From Seroquel) Allergy (Verified 04/03/25 08:06) Chest tightness Medications ???Medication ???Instructions ???Recorded ???Confirmed ???Type lurasidone 20 mg tablet 20 mg PO QPM 09/24/24 01/30/25 His tory PNV 153-FA 400 mcg-om3 35 mg-dha tab PO 04/02/25 History 25 mg-epa 5 mg-fish oil chew tablet Last Menstrual Period: 02/06/25 Zika: Zika virus screening: Negative PFSH PFSH Medical History Hx of chlamydia infection History of claustrophobia Presence of IVC filter Pulmonary embolism Paranoid schizophrenia Surgical History History of lumpectomy Family History Father Cancer, Onset Age: 62 esophagus cancer Mother Brain tumor from huffing gasoline Social History adopted: Yes housing: apartment current occupational status: employed 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 pets and animals: No history of recent travel: No sexually active: Yes Smoking Status: Current every day smoker tobacco type: e-cigarettes quit status: considering quitting alcohol intake: never substance use type: former substance user Date of last use: Quit 2 days before and marijuana well-balanced diet: daily or most days caffeine: Yes Type: tea Number of servings: 3 eating out: rarely or never during the past year weight has: decreased > 10 lbs what type of physical activity do you participate in: none shashank/shinto: [employer]aritan seatbelt use: always do you feel safe at home: Yes additional social history: PURNIMA Rodriguez [employer]- [employer] History 5 Elective abortions Hx Para 3 Spontaneous abortions 1 Hx # Term Pregnancies Ectopic pregnancies Hx # Pregnancies Multiple births # of living children 3 Past Pregnancies Del. Date Name GA/Weeks Outcome Route Bth Weight Gen Labor Lgth Anesthesia Del Locatn Provider FOB Unknown 2016 Miscarriage 8 spontaneous 10/28/12 Rayden 38 live - full term vacuum 6#14oz Male epidural Pomerene Jeffry Porras 12/25/13 Khanh 41 live - full term 7#14oz Male epidural Pomerene Jeffry Porras 04/09/19 Castiel live - full term 7#6oz Male epidural Pomerene Delivery Date: 12/25/13 Last Updated by: Farnaz Godinez IOl post dates, HTN Delivery Date: 04/09/19 Last Updated by: Farnaz Godinez blood clot HPI NEW* OB ER f/u LMP 02/06 ENA 11/13 Details: PRANEETH PORRAS is a 34 year old who presents for New OB visit. she had a bprevious US showing GS and yolk sac, no pole. she denies any bleeidng or lof, no significan tcrmaping, feeling good overall OB Visit ENA Calculator Estimated Delivery Date Method Current WG Current Estimate 11/13/25 LMP (Certain) 8w 0d Comments: HIV: Urine Culture: Sequential Screen: NIPT Screen: Estimated Due Date: 11/13/25 Initial Weight: Not Recorded Date -???-???-???-???-???- ???-???-???-???-???-? ??-???- EGA Weight BP Urine Prot -???-???-???-???-???- ???-???-???-???-???-? ??-???- Glucose FHR FuHt Pres Dilation -???-???-???-???-???- ???-???-???-???-???-? ??-???- Effaced St Visit Note 04/03/25 -???-???-???-???-???- ???-???-???-???-???-? ??-???- 8w 0d 143 lb 7 oz 145/89 -???-???-???-???-???- ???-???-???-???-???-? ??-???- -???-???-???-???-???- ???-???-???-???-???-? ??-???- SM- on US 24 mm GS seen with yolk sac, 5 mm pole no fht seen. posisble ealry miscarriage, will plan fu us monday. will consult with vascular about ivc filter. Menstrual History Last Menstrual Period: 02/06/25 Antepartum Record Genetic Screening: Congenital Heart Defect: Other, Neural Tube Defect: Other, Hemoglobinopathy Or Carrier: Other, Cystic Fibrosis: Other, Chromosome Abnormality: Other, Kareem-Sachs: Other, Hemophilia: Other, Intellectual Disability/Autism: Patient (2 sister's son(Khanh)), Recurrent Loss/Stillbirth: Patient (Mother's first baby was stillborn), Other Structural Defect: Other, Othe (more content not included)... Normal [facility] T4 Free Directon 04-03-2025 T4 FREE DIRECT 1.10 ng/dL Normal 0.76-1.46 [facility] Comment on above: Performed By: #### L 506.0400, [id number] ####[facility] [id number] [place], [address] Thyroid Stim Hormone (TSH)on 04-03-2025 TSH 2.250 uIU/mL Normal 0.300-4.200 [facility] Comment on above: Performed By: #### L 506.0400, [id number] ####[facility] [id number] [place], [address] CBC W/Diff, Automatedon 11-0 Absolute Lymph 2.33 X10 3/uL Normal 0.83-4.51 [facility] Comment on above: Performed By: #### L 100.0100, L700.8000 ####[facility] [id number] [place], [address] Absolute Neut 4.5 X10 3/uL Normal 2.0-7.7 [facility] Comment on above: Performed By: #### L 100.0100, L700.8000 ####[facility] [facility] [address] [place], [address] Basophils/100 WBC (Bld) 0.9 % Normal 0-1 [facility] Comment on above: Performed By: #### L 100.0100, L700.8000 ####[facility] [address] [place], [address] Eosinophils/100 WBC (Bld) 2.4 % Normal 0-5 [facility] Comment on above: Performed By: #### L 100.0100, L700.8000 ####[facility] [address] [place], [address] Erythrocyte distribution width (RBC) [Ratio] 12.8 % Normal 11.6-14.6 [facility] Comment on above: Performed By: #### L 100.0100, L700.8000 ####[facility] [address] [place], [address] Hematocrit (Bld) [Volume fraction] 37.0 % Normal 37-47 [facility] Comment on above: Performed By: #### L 100.0100, L700.8000 ####[facility] [address] [place], [address] Hemoglobin (Bld) [Mass/Vol] 13.0 g/dL Normal 12.0-15.0 [facility] Comment on above: Performed By: #### L 100.0100, L700.8000 ####[facility] [address] [place], [address] IG% 0.300 Normal 0.0-0.9 [facility] Comment on above: Result Comment: IG% - Immature Granulocytes (promyelocytes, myelocytes and metamyelocytes) > 1% indicates that a LEFT SHIFT is Present. Performed By: #### L 100.0100, L700.8000 ####[facility] [address] [place], [address] Lymphocytes/100 WBC (Bld) 30.7 % Normal 19-41 [facility] Comment on above: Performed By: #### L 100.0100, L700.8000 ####[facility] [address] [place], [address] MCH (RBC) [Entitic mass] 32.1 pg High 27.0-32.0 [facility] Comment on above: Performed By: #### L 100.0100, L700.8000 ####[facility] [address] [place], [address] MCHC (RBC) [Mass/Vol] 35.1 g/dL Normal 32-36 [facility] Comment on above: Performed By: #### L 100.0100, L700.8000 ####[facility] [address] [place], [address] MCV (RBC) [Entitic vol] 91.4 fL Normal 81-99 [facility] Comment on above: Performed By: #### L 100.0100, L700.8000 ####[facility] [address] [place], [address] Monocytes/100 WBC (Bld) 7.1 % Normal 0-10 [facility] Comment on above: Performed By: #### L 100.0100, L700.8000 ####[facility] [address] [place], [address] Neutrophils/100 WBC (Bld) 58.6 % Normal 47-70 [facility] Comment on above: Performed By: #### L 100.0100, L700.8000 ####[facility] [address] [place], [address] Nucleated RBC (Bld) [#/Vol] 0 10*3/uL Normal 0-5 [facility] Comment on above: Performed By: #### L 100.0100, L700.8000 ####[facility] [address] [place], [address] Platelet mean volume (Bld) [Entitic vol] 9.9 fL Normal 6.2-12.0 [facility] Comment on above: Performed By: #### L 100.0100, L700.8000 ####[facility] [address] [place], [address] Platelets (Bld) [#/Vol] 266 10*3/uL Normal 150-450 [facility] Comment on above: Performed By: #### L 100.0100, L700.8000 ####[facility] [address] [place], [address] RBC (Bld) [#/Vol] 4.05 10*6/uL Low 4.2-5.4 [facility] Comment on above: Performed By: #### L 100.0100, L700.8000 ####[facility] [address] [place], [address] RDW SD 42.2 fl Normal 35.1-43.9 [facility] Comment on above: Performed By: #### L 100.0100, L700.8000 ####[facility] [address] [place], [address] WBC (Bld) [#/Vol] 7.6 10*3/uL Normal 4.4-11.0 [facility] Comment on above: Performed By: #### L 100.0100, L700.8000 ####[facility] [address] [facility] [place], [address] Emergency Department Summary on 03-29-2025 Emergency Department Summary [facility] Medical Records Department [address] [place] [address] Emergency Department Summary 03/29/25 MR#: [id number] Acct: [id number] Name: PRANEETH PORRAS Rep #: [id number] : 1990 34 From: Hola Catherine MD PCP: Care Physician,No Primary Status:REG ER Location: ED HPI HPI - Female History of Present Illness Chief Complaint: Detail of Chief Complaint: Severe cramping pelvic pain Informant: patient Pain Pain: Positive for Pelvic Pain Onset: Today and Hours (2 to 3 hours prior to presentation) Context: Sudden Onset Timing: Continuous and Waxes and wanes Quality: Positive for Cramping Location: - (Pelvis) Current Severity: Mild Maximum Severity: Moderate Worsened by: - (Occurred while shopping) Bleeding Issue: Negative for Vaginal bleeding, Passing clots or Passing tissue Associated Symptoms Associated Symptoms: Positive for Frequency and Missed Period; Negative for Dysuria, Urgency or Hematuria Last known menstrual period: Patient is 6.5 weeks. Ultrasound last week revealed no IUP Test: Positive Sexually: Positive for Active and Single Partner Control: No control P: 3 Ab: 1 Narrative Narrative: Patient is a 34-year-old female who presents with cramping pelvic pain. She has a positive blood. She had an ultrasound done at [facility]. The ultrasound revealed no IUP. She does have a history of chlamydia infection in the remote past. She denies history of ectopic . She denies history ovarian cyst or endometriosis. Prior similar symptoms: No Recent Illness/Hospitalizati on: No PFSH PFSH Medical History Presence of IVC filter Pulmonary embolism Paranoid schizophrenia Home Medications ???Medication ???Instructions ???Recorded ???Last Taken ???Type lurasidone 20 mg tablet 20 mg PO QPM 09/24/24 Unknown Hist ory doxycycline monohydrate 100 mg 100 mg PO BID #14 CAPSULES 5 Unknown Rx capsule ibuprofen 600 mg tablet 600 mg PO 4X/DAY PRN pain #40 tabs 01/30/25 Unknown Rx oxycodone-acetaminoph en 5 mg-325 1 tab PO Q6H PRN pain 3 days #12 0 01/30/25 Unknown Rx mg tablet (Percocet) tabs sulfamethoxazole 800 1 tab PO BID #6 TABLETS 02/02/25 U nknown Rx mg-trimethoprim 160 mg tablet hydrocodone-acetamino phen 5-325mg 1 tab PO Q6H PRN PRN Pain 2 days 03/29/25 Unknown Rx 5mg-325mg #6 TABLETS Allergy/AdvReac Type Severity Reaction Status Date / Time quetiapine (From Seroquel) Allergy Chest Verified 03/29/25 18:39 tightness Surgical History History of lumpectomy Social History household members: family current occupational status: employed Smoking Status: Current every day smoker tobacco type: e-cigarettes ROS ROS ED Constitutional Constitutional ED: Denies chills, fever(s) or subjective Cardiovascular Cardiovascular: Denies chest pain or palpitations Respiratory/Chest Respiratory/Chest: Denies cough, dyspnea or dyspnea on exertion Gastrointestinal Gastrointestinal: Reports abdominal pain; Denies constipation, diarrhea, melena, nausea or vomiting Genitourinary Genitourinary ED: Reports urinary frequency; Denies dysuria or hematuria Musculoskeletal Musculoskeletal: Denies arthralgias, myalgias or neck pain Integumentary Denies abscess, Abrasions or rash Neurologic Neurologic: Reports headache(s) and other Details: No problems with motor function or coordination. No trouble with speech. ; Denies paresthesias or weakness Psychiatric Psychiatric: Reports anxiety Hematologic/Lymphatic Hematologic/Lymphatic : Denies easy bleeding or easy bruising EXAM Physical Exam Const Vital Signs: 03/29/25 18:39 Temperature 98.1 F Temperature Source Temporal Pulse Rate 93 Respiratory Rate 18 Blood Pressure 151/96 H Blood Pressure Mean 114 Pulse Ox 100 Oxygen Delivery Method Room Air Positive well nourished and well developed Constitutional Narrative: Appears anxious. She is rolling on the examination cot. She states the pain is a 3, however. General Appearance ED: well developed and pallor HEENT Reports moist mucous membranes HEENT Narrative: Head is atraumatic and normocephalic. Ears normal. Nares patent Eyes PERRL and EOMs intact bilaterally General Eye ED: Negative for pale conjunctiva or scleral icterus Neck no lymphadenopathy and no JVD Resp normal respiratory effort and clear to auscultation bilaterally Cardio regular rate, regular rhythm, S1 normal heart sound and no JVD GI normal to inspection, nondistended, normoactive bowel sounds, soft to palpation, non-distended and n (more content not included)... Normal [facility] Transvaginal w/Preg USon Transvaginal w/Preg [facility] [address], [place] [id number] Transvaginal w/Preg US MR#: [id number] Acct: [id number] Name: PRANEETH PORRAS Rep #: [id number] : 1990 F 34 From: Minna Rai MD PCP: Care Physician,No Primary Status: REG ER Study: Transvaginal w/Preg US Date of Exam: 03/29/25 Exam# [id number] Ordering Dr: Hola Catherine MD PROCEDURE: TRANSVAGINAL W/PREG US 03/29/2025 REASON FOR EXAM: SEVERE PAIN, ULTRASOUND LAST WEEK NO IUP, 6.5 WEEK TECHNIQUE: Procedure Code: USTVAGP Modality: US Procedure: TRANSVAGINAL W/PREG US COMPARISON: None. FINDINGS GESTATION: Single intrauterine gestational sac with a mean diameter of 17.0 mm. No embryonic pole is identified at this time. Normal appearing yolk sac present. LMP gestational age: 7 weeks 2 days LMP ENA: November 13, 2025 Sonographic gestational age: 6 weeks 4 days Sonographic ENA: November 18, 2025 UTERUS: Unremarkable measuring 10.1 x 6.2 x 6.1 cm. No myometrial mass. CERVIX: Closed. Unremarkable. OVARIES: Normal size and appearance. Right ovary measures 2.9 x 2.3 x 1.8 cm with a volume of 6.4 mL. Left ovary measures 3.1 x 2.3 x 2.1 cm with a volume of 8.0 mL. Corpus luteum measuring 1.1 x 1.3 x 1.1 cm in the left ovary. Doppler evaluation confirms bilateral ovarian blood flow. No adnexal mass. FREE FLUID: Mild right periadnexal/cul-de-sa c free fluid. US/Transvaginal w/Preg US IMPRESSION: Single intrauterine gestation with yolk sac but no pole yet identified. Advise follow up for viability. Reading Location: [id number] CC: Dr. Hola Catherine MD; No Primary Care Physician Safety Supervisor: Signed Normal [facility] Type AND Screenon 03-29-2025 A1 CELL Not performed Normal [facility] Comment on above: Order Comment: S Result Comment: Tabby fields via OM: Ordered Performed By: #### B TS ####[facility] [address] [place], [place], [id number] Ab SCREEN GEL Not performed Normal [facility] Comment on above: Order Comment: S Result Comment: Tabby fields via OM: Ordered Performed By: #### B TS ####[facility] [address] [place], [place], [id number] ABO and Rh group Nom (Bld) Test Not Performed Normal [facility] Comment on above: Order Comment: S Result Comment: Canc elled via OM: MD Ordered Performed By: #### B TS ####[facility] [address] [place], [address] ANTI A Not performed Normal [facility] Comment on above: Order Comment: S Result Comment: Canc elled via OM: MD Ordered Performed By: #### B TS ####[facility] [address] [place], [address] ANTI B Not performed Normal [facility] Comment on above: Order Comment: S Result Comment: Canc elled via OM: MD Ordered Performed By: #### B TS ####[facility] [address] [place], [address] ANTI D Not performed Normal [facility] Comment on above: Order Comment: S Result Comment: Canc elled via OM: MD Ordered Performed By: #### B TS ####[facility] [address] [place], [address] B CELLS Not performed Normal [facility] Comment on above: Order Comment: S Result Comment: Canc elled via OM: MD Ordered Performed By: #### B TS ####[facility] [address] [place], [address] hCG Titer Quant., Serumon HCG QUANT. 48905 mIU/mL High <9 non-preg [facility] Comment on above: Result Comment: Gest ational Age 0.2-1 Week: 5-50 mIU/mL 1-2 Weeks: 50-500 mIU/mL 2-3 Weeks: 100-5000 mIU/mL 3-4 Weeks: 500-10,000 mIU/mL 4-5 Weeks:1000-50,000 mIU/mL 5-6 Weeks: 10,000-100,000 mIU/mL 6-8 Weeks: 15,000-200,000 mIU/mL 2-3 Months:10,000-100,000 mIU/mL Performed By: #### L 100.0100, L700.8000 ####[facility] [address] [place], [address] Emergency Department Summary on 03-11-2025 Emergency Department Summary [facility] Medical Records Department [address] [place] [address] Emergency Department Summary 03/11/25 MR#: [id number] Acct: [id number] Name: PRANEETH PORRAS Rep #: [id number] : 1990 34 From: Fran Nice MD PCP: Care Physician,No Primary Status:DEP ER Location: ED HPI HPI - Female History of Present Illness Chief Complaint: Informant: patient Associated Symptoms P: 3 Ab: 0 Narrative Narrative: 34-year-old female G3, P3 Ab0. History of DVT with last . IVC filter. Thinks she may be . Last menstrual period was 02/06/2025. She was for started 2 days ago and is late. Took a urine test at home was positive. Says she just feels fatigued. Denies any other symptoms. No vaginal bleeding. No pelvic pain. Would also like to be checked for STDs. Currently has no OB. Last child is 5 years old. Prior similar symptoms: Yes Recent Illness/Hospitalizati on: No PFSH PFSH Medical History Presence of IVC filter Pulmonary embolism Paranoid schizophrenia Home Medications ???Medication ???Instructions ???Recorded ???Last Taken ???Type lurasidone 20 mg tablet 20 mg PO QPM 09/24/24 Unknown Hist ory doxycycline monohydrate 100 mg 100 mg PO BID #14 CAPSULES 5 Unknown Rx capsule ibuprofen 600 mg tablet 600 mg PO 4X/DAY PRN pain #40 tabs 01/30/25 Unknown Rx oxycodone-acetaminoph en 5 mg-325 1 tab PO Q6H PRN pain 3 days #12 0 01/30/25 Unknown Rx mg tablet (Percocet) tabs sulfamethoxazole 800 1 tab PO BID #6 TABLETS 02/02/25 U nknown Rx mg-trimethoprim 160 mg tablet Allergy/AdvReac Type Severity Reaction Status Date / Time quetiapine (From Seroquel) Allergy Chest Verified 03/11/25 18:08 tightness Surgical History History of lumpectomy Social History household members: family current occupational status: employed Smoking Status: Current every day smoker tobacco type: e-cigarettes ROS ROS ED ROS Narrative Denies recent illness. Constitutional Constitutional ED: Denies chills or fever(s) Eyes Eyes: Denies blurry vision ENT ENT ED: Denies ear pain Cardiovascular Cardiovascular: Denies chest pain Respiratory/Chest Respiratory/Chest: Denies cough or dyspnea Gastrointestinal Gastrointestinal: Denies abdominal pain Genitourinary Genitourinary ED: Denies dysuria Musculoskeletal Musculoskeletal: Denies arthralgias Integumentary Denies abscess Neurologic Neurologic: Denies headache(s) Psychiatric Psychiatric: Denies anxiety Endocrine Endocrinology: Denies heat intolerance Hematologic/Lymphatic Hematologic/Lymphatic : Denies easy bleeding Allergic/Immunologic Allergic/Immunologic ED: Denies mouth swelling, tongue swelling or urticaria EXAM Physical Exam Narrative Exam Narrative: Well-appearing 34-year-old female. Vital signs stable afebrile does not look septic toxic no acute distress. Sitting upright in bed. Comfortable. Female friend present at bedside. H EENT exam pu pils round react light. Moist mutes membranes. Neck nontender no lymphadenopathy. No meningismus. Tattoos. Lungs clear to auscultation bilaterally. Heart regular rhythm no murmur. Chest wall ribs nontender. Abdomen soft nontender. Moving all 4 extremities. Nontender no edema. Normal range of motion. Back nontender. Neurologically she is awake alert. Answering questions following commands. Benign exam. Const Vital Signs: 03/11/25 18:05 Temperature 99.2 F H Temperature Source Oral Pulse Rate 120 H Respiratory Rate 20 H Blood Pressure 140/89 H Blood Pressure Mean 106 Pulse Ox 100 Oxygen Delivery Method Room Air MDM MDM MDM Narrative Medical decision making narrative: 34-year-old female positive urine test at home wants a serum test. Also like to be tested for STD. Serum test to be obtained. Urine for GC, chlamydia and trichomonas. Patient doing well on repeat exam at 7:40 PM. When urine test for STDs returns I will notify her if any of them are positive. We discussed her positive test. She will follow-up with SURVEY ANALYST. History Record Review Discussion w/independent historian: Patient Additional record(s) reviewed:: Prior inpatient record, Prior outpatient record, Prior ED visit and Prior labs Lab Data Attestation: I reviewed the patient's lab results. Lab results narrative: Serum test positive. Urine negative for gonorrhea, chlamydia and trichomonas. Labs: Laboratory Results - last 24 hr 03/11/25 18:30 Serum , Qual POSITIVE Discharge Plan Triage Chief Complaint: ED (more content not included)... Normal [facility] M8200.2203on 03-11-2025 M8200.2203 Chlamydia Trachomati s PCR NEGATIVE for Chlamydia trachomatis N. gonorrhoeae PCR Negative for N. gonorrhoeae Normal [facility] Comment on above: Performed By: #### M 8200.3000, M8200.2203 ####[facility] [address] [place], [address] M8200.3000on 03-11-2025 M8200.3000 Trichomonas Vag DNA PCR Negative for Trichomonas vaginalis Normal [facility] Comment on above: Performed By: #### M 8200.3000, M8200.2203 ####[facility] [address] [place], [address] ,Serum,hCG Quali.on 03-11-2025 HCG, SERUM QUAL Positive Normal [facility] Comment on above: Result Comment: CRIT ICAL VALUE CALLED TO ANASTACIO DARDEN 03/11/25 Dianne Ria Gleason. RESULTS READ BACK BY SAME. Performed By: #### L 700.6800 #### [facility] [address] [place], [address] Serum beta-hCG test, qualita tiveOrdered By: Fran Nice on 03-11-2025 Beta HCG ( test) Ql Negative [facility] Comment on above: CRITICAL VALUE GERARD D TO ANASTACIO DARDEN03/11/251906 Ria Gleason.RESULTS READ BACK BY SAME. Bilirubin Test strip Ql (U)O rdered By: Kyle Fan on 02-02-2025 Bilirubin Ql (U) Negative Negative [facility] Emergency Department Summary on 02-02-2025 Emergency Department Summary [facility] Medical Records Department [address] [place] [address] Emergency Department Summary 02/02/25 MR#: [id number] Acct: [id number] Name: PRANEETH PORRAS Rep #: [id number] : 1990 34 From: Kyle Fan MD PCP: Care Physician,No Primary Status:REG ER Location: ED HPI HPI - Female History of Present Illness Chief Complaint: Complaint Informant: patient Narrative Narrative: 34-year-old female presenting with burning dysuria, frequency, and some lower abdominal discomfort for several minutes after urinating for the past 2 days. Radiates into her mid low back. No lateralizing abdominal or back symptoms. At 1 point she had some subjective fevers and chills but does not know if she really had a fever or not did not check her temperature. No nausea or vomiting. Denies any vaginal discharge or bleeding. PFSH PFSH Medical History Presence of IVC filter Pulmonary embolism Paranoid schizophrenia Home Medications ???Medication ???Instructions ???Recorded ???Last Taken ???Type lurasidone 20 mg tablet 20 mg PO QPM 09/24/24 Unknown Hist ory doxycycline monohydrate 100 mg 100 mg PO BID #14 CAPSULES 5 Unknown Rx capsule ibuprofen 600 mg tablet 600 mg PO 4X/DAY PRN pain #40 tabs 01/30/25 Unknown Rx oxycodone-acetaminoph en 5 mg-325 1 tab PO Q6H PRN pain 3 days #12 0 01/30/25 Unknown Rx mg tablet (Percocet) tabs sulfamethoxazole 800 1 tab PO BID #6 TABLETS 02/02/25 U nknown Rx mg-trimethoprim 160 mg tablet Allergy/AdvReac Type Severity Reaction Status Date / Time quetiapine (From Seroquel) Allergy Chest Verified 02/02/25 10:56 tightness Surgical History History of lumpectomy Social History household members: family current occupational status: employed Smoking Status: Current every day smoker tobacco type: e-cigarettes ROS ROS ED Constitutional Constitutional ED: Denies chills or fever(s) Eyes Eyes: Denies change in vision or diplopia ENT ENT ED: Denies rhinorrhea or sore throat Cardiovascular Cardiovascular: Denies chest pain or palpitations Respiratory/Chest Respiratory/Chest: Denies cough or dyspnea Gastrointestinal Gastrointestinal: Reports abdominal pain; Denies diarrhea, nausea or vomiting Genitourinary Genitourinary ED: Reports dysuria and urinary frequency; Denies hematuria Musculoskeletal Musculoskeletal: Reports back pain; Denies neck pain Integumentary Denies abscess or rash Neurologic Neurologic: Denies headache(s), paresthesias or weakness Psychiatric Psychiatric: Denies anxiety or suicidal thoughts EXAM Physical Exam Const Vital Signs: 02/02/25 10:56 Temperature 98.6 F Temperature Source Oral Pulse Rate 85 Respiratory Rate 16 Blood Pressure 154/91 H Blood Pressure Mean 112 Pulse Ox 99 Oxygen Delivery Method Room Air Positive well nourished and well developed General Appearance ED: well developed and NAD HEENT Reports moist mucous membranes normocephalic and atraumatic Eyes PERRL and EOMs intact bilaterally Neck full ROM and supple Resp normal respiratory effort GI non-distended GI Narrative: Mild suprapubic tenderness. No lateralizing pelvic tenderness. No guarding or rebound. Benign abdomen. Auscultation: normoactive bowel sounds Palpation: soft Back/Spine no CVA tenderness General Back: other FROM Extremity normal to inspection General Extremety ED: Negative for edema, pulses abnormal or tenderness General Extremity: Negative for edema or pulses abnormal Neuro oriented x3, CN's II-XII intact bilaterally and no sensory deficits noted Sensorium / Orientation: awake and alert Motor Exam: strength 5/5 throughout Skin no rashes or lesions noted and no wounds MDM MDM MDM Narrative Medical decision making narrative: test is negative, patient has some pyuria and 25 leukocyte esterase negative nitrate, her urine is a little cloudy. Given her symptoms I think reasonable to treat her with a 3-day course of Bactrim to cover cystitis, she is comfortable with that plan. Lab Data Attestation: I reviewed the patient's lab results. Labs: Laboratory Results - last 24 hr 02/02/25 11:16 Urine Color Yellow Urine Clarity Sl Cloudy Urine pH 6.0 Ur Specific Mcfall 1.025 Urine Protein 100 H Urine Glucose (UA) Normal Urine Ketones Negative Urine Occult Blood 50 H Urine Nitrite Negative Urine Bilirubin Negative Urine Urobilinogen Normal Ur Leukocyte Esterase 25 H Urine RBC 0 SEEN Urine WBC 10-25 SEEN Ur Squamous Epith Cells 0-5 SEEN Urine Bacteri (more content not included)... Normal [facility] Ketones Test strip Ql (U)Ord ered By: Kyle Fan on 02-02-2025 Ketones Ql (U) Negative Negative [facility] Microscopic analysis of urin e for red blood cells (RBC)Ordered By: Kyle Fan on 02-02-2025 Microscopic analysis of urine for red blood cells (RBC) 0 SEEN /hpf 0-5 [facility] Mucus LM Ql (Urine sed)Order ed By: Kyle Fan on 02-02-2025 Mucus Ql (Urine sed) 0 SEEN /hpf [facility] Nitrite Test strip Ql (U)Ord ered By: Kyle Fan on 02-02-2025 Nitrite Ql (U) Negative Negative [facility] ,Urineon 02-02-2025 Beta HCG ( test) Ql (U) Negative Normal [facility] Comment on above: Result Comment: Very dilute urine specimens, as indicated by a low specific gravity, may not contain indirect sales representative levels of hCG. If is still suspected, a first morning urine specimen should be collected 48 hours later and tested. Performed By: #### L 400.7600, L400.0001 #### [facility] [address] [place] [address]. [place], [address] Protein Test strip Ql (U)Ord ered By: Kyle Fan on 02-02-2025 Protein Ql (U) 100 mg/dl High Negative [facility] Squamous epithelial cells de tection in urine sediment by light microscopyOrdered By: Kyle Fan on 02-02-2025 Epithelial cells.squamous LM Ql (Urine sed) 0-5 SEEN /hpf 5-10 [facility] Urinalysis, Completeon 02-02 BACTERIA 1+ /hpf Normal None Seen [facility] Comment on above: Order Comment: CLEAN CATCH Performed By: #### L 400.7600, L400.0001 #### [facility] [address] [place], [address] EPI,SQUAMOUS 0-5 SEEN Normal 5-10 [facility] Comment on above: Order Comment: CLEAN CATCH Performed By: #### L 400.7600, L400.0001 #### [facility] [address] [place], [address] WBC 10-25 SEEN Normal 0-5 [facility] Comment on above: Order Comment: CLEAN CATCH Performed By: #### L 400.7600, L400.0001 #### [facility] [address] [place], [address] Clarity (U) Sl Cloudy Normal Clear [facility] Comment on above: Order Comment: CLEAN CATCH Performed By: #### L 400.7600, L400.0001 #### [facility] [address] [place], [address] Color (U) Yellow Normal Yellow [facility] Comment on above: Order Comment: CLEAN CATCH Performed By: #### L 400.7600, L400.0001 #### [facility] [address] [place], [address] Mucus Ql (Urine sed) 0 SEEN Normal [facility] Comment on above: Order Comment: CLEAN CATCH Performed By: #### L 400.7600, L400.0001 #### [facility] [address] [place], [address] RBC 0 SEEN Normal 0-5 [facility] Comment on above: Order Comment: CLEAN CATCH Performed By: #### L 400.7600, L400.0001 #### [facility] [address] [place], [address] Urine clarityOrdered By: Oneyda Fan on 02-02-2025 Clarity (U) Sl Cloudy Clear [facility] Urine color determinationOrd ered By: Kyle Fan on 02-02-2025 Color (U) Yellow Yellow [facility] Urine glucose detectionOrder ed By: Kyle Fan on 02-02-2025 Glucose Ql (U) Normal mg/dl Normal [facility] Urine leukocyte esterase det ection by dipstickOrdered By: Kyle Fan on 02-02-2025 Leukocyte esterase Test strip Ql (U) 25 /ul High Negative [facility] Urine pHOrdered By: Kyle Fan on 02-02-2025 pH (U) 6.0 [pH] 5.0 - 8.0 [facility] Urine testOrdered By: Kyle Fan on 02-02-2025 HCG ( test) Ql (U) Negative [facility] Comment on above: Very dilute urine sp ecimens, as indicated by a low specificgravity, may not contain indirect sales representative levels of hCG. If is still suspected, a first morning urinespecimen should be collected 48 hours later and tested. Urine sediment bacteria coun t by microscopy (number/high power field)Ordered By: Kyle Fan on 02-02-2025 Bacteria LM.HPF (Urine sed) [#/Area] 1 /[HPF] None Seen [facility] Urine specific gravity measu rementOrdered By: Kyle Fan on 02-02-2025 Specific gravity (U) [Rel density] 1.025 1.002-1.030 [facility] Urine urobilinogen measureme ntOrdered By: Kyle Fan on 02-02-2025 Urobilinogen Ql (U) Normal mg/dl Normal [facility] White blood cell countOrdere d By: Kyle Fan on 02-02-2025 White blood cell count 10-25 SEEN /hpf 0-5 [facility] Emergency Department Summary on 01-30-2025 Emergency Department Summary [facility] Medical Records Department [address] [place] [address] Emergency Department Summary 01/30/25 MR#: [id number] Acct: [id number] Name: PRANEETH PORRASETTE Rep #: [id number] : 1990 34 From: Jerod Davis DO PCP: Care Physician,No Primary Status:DEP ER Location: ED HPI History of Present Illness Chief Complaint: Lower Extremity Injury Informant: patient and friend Narrative Narrative: Patient is a 34-year-old female with past medical history of schizophrenia and previous pulmonary embolus but no reported anticoagulation. She states roughly 10 hours ago she went to kick something". She states she was wearing a steel toed boot but missed the steel toe section of the boot and that she struck the top of her left foot. She states she had immediate pain after doing so. She states she gave the area time to resolve and took jpvl-vot-[id number] medication but there has been no symptom improvement and with concern for fracture she presents for evaluation. [facility] Medical History (Updated 01/31/25 @ 01:24 by [...] PRN pain #40 tabs 01/30/25 Unknown Rx oxycodone-acetaminoph en 5 mg-325 1 tab PO Q6H PRN [...] or rash Neurologic Neurologic: Denies headache(s) Hematologic/Lymphatic Hematologic/Lymphatic [...] and ne (more content not included)... Normal [facility] Foot min 3 Viewson 5 Foot min 3 Views [facility] Imaging Services [address] [place], [place] [address] Foot min 3 Views MR#: [id number] Acct: [id number] Name: PRANEETH PORRAS Rep #: [id number] : 1990 F 34 From: George alexander MD PCP: Care Physician,No Primary Status: DEP ER Study: Foot min 3 Views Date of Exam: 01/30/25 Exam# [id number] Ordering Dr: Jerod Davis DO PROCEDURE: FOOT [...] No evidence for acute abnormality. Reading Location: [place] [address] CC: Jerod Davis DO; No Primary Care Physician Safety Supervisor: Signed Normal [facility] M8200.2203on 12-24-2024 M8200.2203 Chlamydia Trachomati s PCR NEGATIVE for Chlamydia trachomatis N. gonorrhoeae PCR Negative for N. gonorrhoeae Normal [facility] Comment on above: Performed By: #### M 8200.2203, L400.7600 ####[facility] [address] [place], [place], [address] ,Urineon 12-24-2024 Beta HCG ( test) Ql (U) Negative Normal [facility] Comment on above: Order Comment: Result Comment: Very dilute urine specimens, as indicated by a low specific gravity, may not contain indirect sales representative levels of hCG. If is still suspected, a first morning urine specimen should be collected 48 hours later and tested. Performed By: #### M 8200.2203, L400.7600 ####[facility] [address] [place], [address] Emergency Department Summary on 12-23-2024 Emergency Department Summary [facility] Medical Records Department [address] [place] [address] Emergency Department Summary 12/23/24 MR#: [id number] Acct: [id number] Name: PRANEETH PORRAS Rep #: [id number] : 1990 34 From: Kyle Fan MD [...] past, she states this seems very similar. [facility] Medical History Pulmonary embolism Pulmonary embolism [...] 3-5 Days if not improving Print Language: Swazi Disposition Disposition: Home, Self Care Discharge Date/Time: 12/24/24 00:08 What to do if you have Problems For any increased pain, shortness of breath, bleeding, nausea or vomiting, chest p (more content not included)... Normal [facility] Urine testOrdered By: Kyle Fan on 12-23-2024 HCG ( test) Ql (U) Negative [facility] Comment on above: Very dilute urine sp ecimens, as indicated by a low specificgravity, may not contain indirect sales representative levels of hCG. If is still suspected, a first morning urinespecimen should be collected 48 hours later and tested. Emergency Department Summary on 09-24-2024 Emergency Department Summary [facility] Medical Records Department [address] [place] [address] Emergency Department Summary 09/24/24 MR#: [id number] Acct: [id number] Name: PRANEETH PORRAS Rep #: [id number] : 1990 34 From: Jerod Davis DO [...] states she is concerned she has a "scratch" to her eye and secondary to this comes in for evaluation. [facility] Medical History Pulmonary embolism Pulmonary embolism [...] Care Prov (more content not included)... Normal [facility] 09-08-2024 [facility] Office Visit (UCWSTR ) PRANEETH PORRAS ([id number]) 1990 F DEF Date Time Provider Department 09/08/24 1:30 PM MILLRE KEYES [facility] During your visit today, we recorded the following information about you: Temperature Pulse Respiration Blood pressure 98.8 degrees 80/minute 18/minute 96/61 Weight 57.5 kg Miller Keyes PA 09/08/2024 1:39 PM Signed [facility] Subjective Praneeth S Ascencionuriel is a 34 year old female. Patient [...] for the (more content not included)... Normal [facility] Emergency Department Summary on 05-20-2024 Emergency Department Summary [facility] Medical Records Department [address] [place] [address] Emergency Department Summary 05/20/24 MR#: [id number] Acct: [id number] Name: PRANEETH PORRAS Rep #: [id number] : 1990 33 From: Fran Nice MD [...] female history of prior pulmonary emboli of [place] filter and paranoid schizophrenia. 2 of her [...] mouth swelling, tongue swelling or urticaria PFSH [facility] Medical History Pulmonary embolism Pulmonary embolism Paranoid schizophrenia Home Medications ???Medication ???Instructions ???Recorded ???Last Taken ???Type dicyclomine 10 mg capsule 10 mg PO TID 5 days #15 caps 04/15/24 Unknown Rx ondansetron 4 mg disintegrating 4 mg PO Q6H PRN nausea and 04/15/24 Unknown Rx tablet vomiting #20 tabs Allergy/AdvReac Type Severity Reaction Status Date / Time quetiapine (From [employer]) Allergy Chest Verified 05/20/24 08:49 tightness Social [...] S2 normal (more content not included)... Normal [facility] Abdomen/Pelvis W IV Cont ONL Yon 04-15-2024 Abdomen/Pelvis W IV Cont ONLY [facility] Imaging Services [address] [place] [address] Abdomen/Pelvis W IV Cont ONLY MR#: [id number] Acct: [id number] Name: PRANEETH PORRAS Rep #: [id number] : 1990 F 33 From: Rad Shine DO PCP: Care Physician,No Primary Status: REG ER Study: Abdomen/Pelvis W IV Cont ONLY Date of Exam: Exam# [id number] Ordering Dr: Daniel Ch DO [id number] STUDY: CT ABDOMEN AND PELVIS WITH CONTRAST [...] Daniel Ch, ; No Primary Care Physician Safety Supervisor: Signed Normal [facility] CBC W/Diff, Automatedon 03-29 Absolute Lymph 1.59 X10 3/uL Normal 0.83-4.51 [facility] Comment on above: Performed By: #### L 501.2450, L100.0100, L500.4050 #### [facility] [address] [place], [address] Absolute Neut 3.7 X10 3/uL Normal 2.0-7.7 [facility] Comment on above: Performed By: #### L 501.2450, L100.0100, L500.4050 #### [facility] [address] [place], [address] Basophils/100 WBC (Bld) 1.2 % High 0-1 [facility] Comment on above: Performed By: #### L 501.2450, L100.0100, L500.4050 #### [facility] [address] [place], [address] Eosinophils/100 WBC (Bld) 2.0 % Normal 0-5 [facility] Comment on above: Performed By: #### L 501.2450, L100.0100, L500.4050 #### [facility] [address] [place], [address] Erythrocyte distribution width (RBC) [Ratio] 13.3 % Normal 11.6-14.6 [facility] Comment on above: Performed By: #### L 501.2450, L100.0100, L500.4050 #### [facility] [address] [place], [address] Hematocrit (Bld) [Volume fraction] 36.5 % Low 37-47 [facility] Comment on above: Performed By: #### L 501.2450, L100.0100, L500.4050 #### [facility] [address] [place], [address] Hemoglobin (Bld) [Mass/Vol] 12.0 g/dL Normal 12.0-15.0 [facility] Comment on above: Performed By: #### L 501.2450, L100.0100, L500.4050 #### [facility] [address] [place], [address] IG% 0.300 Normal 0.0-0.9 [facility] Comment on above: Result Comment: IG% - Immature Granulocytes (promyelocytes, myelocytes and metamyelocytes) > 1% indicates that a LEFT SHIFT is Present. Performed By: #### L 501.2450, L100.0100, L500.4050 #### [facility] [address] [place], [address] Lymphocytes/100 WBC (Bld) 26.5 % Normal 19-41 [facility] Comment on above: Performed By: #### L 501.2450, L100.0100, L500.4050 #### [facility] [address] [place], [address] MCH (RBC) [Entitic mass] 30.8 pg Normal 27.0-32.0 [facility] Comment on above: Performed By: #### L 501.2450, L100.0100, L500.4050 #### [facility] [address] [place], [address] MCHC (RBC) [Mass/Vol] 32.9 g/dL Normal 32-36 [facility] Comment on above: Performed By: #### L 501.2450, L100.0100, L500.4050 #### [facility] [address] [place], [address] MCV (RBC) [Entitic vol] 93.6 fL Normal 81-99 [facility] Comment on above: Performed By: #### L 501.2450, L100.0100, L500.4050 #### [facility] [address] [place], [address] Monocytes/100 WBC (Bld) 8.2 % Normal 0-10 [facility] Comment on above: Performed By: #### L 501.2450, L100.0100, L500.4050 #### [facility] [address] [place], [address] Neutrophils/100 WBC (Bld) 61.8 % Normal 47-70 [facility] Comment on above: Performed By: #### L 501.2450, L100.0100, L500.4050 #### [facility] [address] [place], [address] Nucleated RBC (Bld) [#/Vol] 0 10*3/uL Normal 0-5 [facility] Comment on above: Performed By: #### L 501.2450, L100.0100, L500.4050 #### [facility] [address] [place], [address] Platelet mean volume (Bld) [Entitic vol] 10.9 fL Normal 6.2-12.0 [facility] Comment on above: Performed By: #### L 501.2450, L100.0100, L500.4050 #### [facility] [address] [place], [address] Platelets (Bld) [#/Vol] 240 10*3/uL Normal 150-450 [facility] Comment on above: Performed By: #### L 501.2450, L100.0100, L500.4050 #### [facility] [address] [place], [address] RBC (Bld) [#/Vol] 3.90 10*6/uL Low 4.2-5.4 [facility] Comment on above: Performed By: #### L 501.2450, L100.0100, L500.4050 #### [facility] [address] [place], [address] RDW SD 45.3 fl High 35.1-43.9 [facility] Comment on above: Performed By: #### L 501.2450, L100.0100, L500.4050 #### [facility] [address] [place], [address] WBC (Bld) [#/Vol] 6.0 10*3/uL Normal 4.4-11.0 [facility] Comment on above: Performed By: #### L 501.2450, L100.0100, L500.4050 #### [facility] [address] [place], [address] Comprehensive Metabolic Prof [facility] 04-15-2024 Albumin [Mass/Vol] 3.6 g/dL Normal 3.2-5.0 [facility] Comment on above: Performed By: #### L 501.2450, L100.0100, L500.4050 #### [facility] [address] [place], [address] Albumin/Globulin [Mass ratio] 1.1 {ratio} Normal 0.9-2.4 [facility] Comment on above: Performed By: #### L 501.2450, L100.0100, L500.4050 #### [facility] [address] [place], [address] ALK P 49 U/L Normal 45-117 [facility] Comment on above: Performed By: #### L 501.2450, L100.0100, L500.4050 #### [facility] [address] [place], [address] ALT [Catalytic activity/Vol] 24 U/L Normal 13-56 [facility] Comment on above: Performed By: #### L 501.2450, L100.0100, L500.4050 #### [facility] [address] [place], [address] AST [Catalytic activity/Vol] 18 U/L Normal 15-37 [facility] Comment on above: Performed By: #### L 501.2450, L100.0100, L500.4050 #### [facility] [address] [place], [address] Bilirubin [Mass/Vol] 0.20 mg/dL Normal 0.20-1.00 [facility] Comment on above: Result Comment: For patients on eltrombopag therapy, use of Dimension [place] TBIL is not recommended. Performed By: #### L 501.2450, L100.0100, L500.4050 #### [facility] [address] [place], [address] BUN/CRE 16.8 RATIO Normal 10-20 [facility] Comment on above: Performed By: #### L 501.2450, L100.0100, L500.4050 #### [facility] [address] [place], [address] CA,Total 8.5 mg/dL Normal 8.5-10.1 [facility] Comment on above: Performed By: #### L 501.2450, L100.0100, L500.4050 #### [facility] [address] [place], [address] Chloride [Moles/Vol] 108 mmol/L High 98-107 [facility] Comment on above: Performed By: #### L 501.2450, L100.0100, L500.4050 #### [facility] [address] [place], [address] CO2 [Moles/Vol] 27.0 mmol/L Normal 21.0-32.0 [facility] Comment on above: Performed By: #### L 501.2450, L100.0100, L500.4050 #### [facility] [address] [place], [address] Creatinine [Mass/Vol] 0.83 mg/dL Normal 0.55-1.02 [facility] Comment on above: Result Comment: The validity of the calculated GFR GFRAA in patients over 70 years has not been determined. Clinical correlation is essential. Performed By: #### L 501.2450, L100.0100, L500.4050 #### [facility] [address] [place], [address] ECRCL 80.49 ml/min Normal [facility] Comment on above: Performed By: #### L 501.2450, L100.0100, L500.4050 #### [facility] [address] [place], [address] EST GFR - AA 102 mL/min Normal >60 [facility] Comment on above: Result Comment: Afri can [place] GFR Calc Performed By: #### L 501.2450, L100.0100, L500.4050 #### [facility] [address] [place], [address] GAP 6 Normal 5-15 [facility] Comment on above: Performed By: #### L 501.2450, L100.0100, L500.4050 #### [facility] [address] [place], [address] GFR/1.73 sq M.predicted among non-blacks MDRD (S/P/Bld) [Vol rate/Area] 84 mL/min/{1.73_m2} Normal >60 [facility] Comment on above: Result Comment: Non- GFR Calc Performed By: #### L 501.2450, L100.0100, L500.4050 #### [facility] [address] [place], [address] Globulin (S) [Mass/Vol] 3.3 g/dL Normal 2.2-4.2 [facility] Comment on above: Performed By: #### L 501.2450, L100.0100, L500.4050 #### [facility] [address] [place], [address] Glucose [Mass/Vol] 105 mg/dL Normal 74-106 [facility] Comment on above: Result Comment: Fast ing Glucose result from 100 to 125 mg/dL suggests IMPAIRED HOMEOSTASIS per A.D.A. criteria. Performed By: #### L 501.2450, L100.0100, L500.4050 #### [facility] [address] [place], [address] Potassium [Moles/Vol] 3.2 mmol/L Low 3.5-5.1 [facility] Comment on above: Performed By: #### L 501.2450, L100.0100, L500.4050 #### [facility] [address] [place], [address] Sodium [Moles/Vol] 141 mmol/L Normal 136-145 [facility] Comment on above: Performed By: #### L 501.2450, L100.0100, L500.4050 #### [facility] [address] [place], [address] T PROT 6.9 g/dL Normal 6.4-8.2 [facility] Comment on above: Performed By: #### L 501.2450, L100.0100, L500.4050 #### [facility] [address] [place], [address] Urea nitrogen [Mass/Vol] 14 mg/dL Normal 7-18 [facility] Comment on above: Performed By: #### L 501.2450, L100.0100, L500.4050 #### [facility] [address] [place], [address] Emergency Department Summary on 04-15-2024 Emergency Department Summary [facility] Medical Records Department [address] [place] [address] Emergency Department Summary 04/15/24 MR#: [id number] Acct: [id number] Name: PRANEETH PORRAS Rep #: [id number] : 1990 33 From: Daniel Ch DO [...] follow commands knew that she was at [facility] years 2023 Skin: Warm, dry, intact [...] She was advised to follow-up with her SURVEY ANALYST in 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 She will be given prescription for Bentyl and Zofran. She was advised to return with worsening symptoms or other concerns. All question concerns answered she was discharged home in stable condition. Lab Data Labs: Laboratory (more content not included)... Normal [facility] Lipaseon 04-15-2024 Lipase [Catalytic activity/Vol] 31 U/L Normal 13-75 [facility] Comment on above: Result Comment: Serafin traylor note: LIPASE revised reference range effective 22. New Lipase methodology. Expected to produce lower values than the previous assay method. NEW Reference Range: 13 - 75 U/L Performed By: #### L 501.2450, L100.0100, L500.4050 ####[facility] [address] [place], [place], [address] ,Urineon 04-15-2024 Beta HCG ( test) Ql (U) Negative Normal [facility] Comment on above: Order Comment: CLEAN CATCH Result Comment: Very dilute urine specimens, as indicated by a low specific gravity, may not contain indirect sales representative levels of hCG. If is still suspected, a first morning urine specimen should be collected 48 hours later and tested. Performed By: #### L 400.0001, L400.7600 #### [facility] [address] [place], [address] Urinalysis, Completeon 04-15 BACTERIA RARE Normal None Seen [facility] Comment on above: Order Comment: CLEAN CATCH Performed By: #### L 400.0001, L400.7600 #### [facility] [address] [place], [address] Mucus Ql (Urine sed) 3+ /hpf Normal [facility] Comment on above: Order Comment: CLEAN CATCH Performed By: #### L 400.0001, L400.7600 #### [facility] [address] [place], [address] EPI,SQUAMOUS 0-5 SEEN Normal 5-10 [facility] Comment on above: Order Comment: CLEAN CATCH Performed By: #### L 400.0001, L400.7600 #### [facility] [address] [place], [address] RBC 0 SEEN Normal 0-5 [facility] Comment on above: Order Comment: CLEAN CATCH Performed By: #### L 400.0001, L400.7600 #### [facility] [address] [place], [address] WBC 0 SEEN Normal 0-5 [facility] Comment on above: Order Comment: CLEAN CATCH Performed By: #### L 400.0001, L400.7600 #### [facility] [address] [place], [address] [facility] Telephone ([facility]) PRANEETH PORRAS ([id number]) 1990 F DEF Date Time Provider Department 11/03/23 ELISE LOMELI [facility] During your visit today, we recorded the following information about you: Elise Lomeli APRN.CALL CENTER DIRECTOR 11/03/2023 5:42 PM Signed Patient's urine culture [...] Status:Closed by SEDRICK COX on 11/03/23 Normal [facility] Bacteria Ur Culton 4 Bacteria identified Cx Nom (U) ORGANISM ID: 1 10,000 -<50,000 CFU/ml Normal urogenital blanca Normal [facility] Comment on above: Performed By: #### 6 30-4 #### [facility] CLIA [id number] [address] [place] [address] CNOVon 11-02-2023 CNOV Office Visit ([facility] ) PRANEETH PORRAS ([id number]) 1990 F DEF Date Time Provider Department 11/02/23 2:45 PM MILLER KEYES [facility] During your visit today, we recorded the following information about you: Temperature Pulse Respiration Blood pressure 97.7 degrees 76/minute 16/minute 122/72 Weight 55.6 kg Miller Keyes PA 11/02/2023 3:05 PM Signed This note was created using Pickliver[employer]. Subjective Praneeth Porras is a 33 year [...] ER evalua (more content not included)... Normal [facility] STREP A MOLECULAR (POC)on Procedural Control Valid [facility] Strep A (POCT) Negative Negative [facility] UA DIP, URINE (POC)on 2023 BILIRUBIN UA (POCT) Negative Negative [facility] CLARITY UA (POCT) Clear [facility] COLOR UA (POCT) Yellow [facility] GLUCOSE UA (POCT) Negative Negative mg/dL [facility] Hemoglobin Ql (U) Negative Negative [facility] Interpretation and review of laboratory results Abnormal [facility] KETONE UA (POCT) Trace Negative mg/dL [facility] LEUKOCYTES UA (POCT) Negative Negative [facility] NITRITE UA (POCT) Negative Negative [facility] PH UA (POCT) 6.0 4.5 - 8.0 [facility] Protein Ql (U) Trace Abnormal Negative mg/dL [facility] SPECIFIC GRAVITY UA (POCT) 1.025 1.005 - 1.030 [facility] UROBILINOGEN UA (POCT) 0.2 Adela l E.U./dL [facility] Location:[facility], [address] [place] [address], [place], [place], [id number] [place] [address] POINT OF CARE [facility] CTA HEAD AND NECKon 01-25-20 CTA HEAD [...] basilar tip are patent. SCA patent bilaterally. WEBSITE DESIGNER patent bilaterally. There is takeoff of the WEBSITE DESIGNER on the left. Distal WEBSITE DESIGNER distributions are symmetric. No large vessel occlusion. DEVELOPMENTAL ANOMALIES: takeoff left WEBSITE DESIGNER. Hypoplastic A1 segment right LILIAM. OTHER: No [...] C/o right eye pain. 20g RAC 150mL [id number] given by [facility] Technical problem with scanner after first bolus Normal [facility] HCG URINE (PREG)on 3 HCG ( test) Ql (U) Negative Normal [facility] Comment on above: Performed By: #### 4 [id number], [id number] #### TERA MATHEWS (2012) [facility] [address] [place] [address] BASIC METABOLIC PANELon 12-28 Anion gap [Moles/Vol] 14 mmol/L High 8- Gen [facility] Core Oncology [facility] Comment on above: Performed By: #### 4 [id number], [id number] #### TERA MATHEWS (2012) [facility] [address] [place] [address] Calcium [Mass/Vol] 9.7 mg/dL Normal 8.4-10.4 [facility] Comment on above: Performed By: #### 4 [id number], [id number] #### TERA MATHEWS (2012) [facility] [address] [place] [address] Chloride [Moles/Vol] 104 mmol/L Normal 96-109 [facility] Core Oncology [facility] Comment on above: Performed By: #### 4 [id number], [id number] #### TERA MATHEWS (2012) [facility] [address] [place] [address] CO2 [Moles/Vol] 21 mmol/L Low 22-30 [facility] Comment on above: Performed By: #### 4 [id number], [id number] #### TERA MATHEWS (2012) [facility] [address] [place] [address] Creatinine [Mass/Vol] 0.76 mg/dL Normal 0.52-1.04 [facility] Comment on above: Performed By: #### 4 [id number], [id number] #### TERA MATHEWS (2012) [facility] [address] [place] [address] GLOMERULAR FILTRATION RATE ML/MIN/1.73 SQ M.PREDICTED >90.0 Normal >=60.0 [facility] Comment on above: Result Comment: [...] Kidney Int Suppl.2013;3:1-150 Performed By: #### 4 [id number], [id number] #### TERA MATHEWS (2012) [facility] [address] [place] [address] Glucose [Mass/Vol] 100 mg/dL Normal 65-100 [facility] Comment on above: Performed By: #### 4 [id number], [id number] #### TERA MATHEWS (2012) [facility] [address] [place] [address] Potassium [Moles/Vol] 3.0 mmol/L Low 3.6-5.1 [facility] Comment on above: Performed By: #### 4 [id number], [id number] #### TERA MATHEWS (2012) [facility] [address] [place] [address] Sodium [Moles/Vol] 139 mmol/L Normal 135-147 [facility] Comment on above: Performed By: #### 4 [id number], [id number] #### TERA MATHEWS (2012) [facility] [address] [place] [address] Urea nitrogen [Mass/Vol] 14 mg/dL Normal 8-26 [facility] Comment on above: Performed By: #### 4 [id number], [id number] #### TERA MATHEWS (2012) [facility] [address] [place] [address] CBC AND DIFFERENTIALon 01-23 ABSOLUTE BASOPHIL 0.1 x10*3/uL Normal 0.0-0.1 [facility] Comment on above: Performed By: #### 4 [id number] #### TERA AMTHEWS (2012) [facility] [address] [place] [address] ABSOLUTE EOSINOPHIL 0.0 x10*3/uL Low 0.1-0.3 [facility] Comment on above: Performed By: #### 4 [id number] #### TERA MATHEWS (2012) [facility] [address] [place] [address] ABSOLUTE IMMATURE GRANULOCYTES 0.0 x10*3/uL Normal 0.0-0.1 [facility] Comment on above: Performed By: #### 4 [id number] #### TERA MATHEWS (2012) [facility] [address] [place] [address] ABSOLUTE LYMPH 1.7 x10*3/uL Normal 1.2-3.3 [facility] Comment on above: Performed By: #### 4 [id number] #### TERA MATHEWS (2012) [facility] [address] [place] [address] ABSOLUTE MONO 0.4 x10*3/uL Normal 0.2-0.6 [facility] Comment on above: Performed By: #### 4 [id number] #### TERA MATHEWS (2012) [facility] [address] [place] [address] ABSOLUTE NEUTROPHIL 4.3 x10*3/uL Normal 2.4-6.6 [facility] Comment on above: Performed By: #### 4 [id number] #### TERA MATHEWS (2012) [facility] [address] [place] [address] Basophils/100 WBC (Bld) 0.8 % Normal [facility] Comment on above: Performed By: #### 4 [id number] #### TERA MATHEWS (2012) [facility] [address] [place] [address] Eosinophils/100 WBC (Bld) 0.6 % Normal [facility] Comment on above: Performed By: #### 4 [id number] #### TERA MATHESW (2012) [facility] [address] [place] [address] Erythrocyte distribution width (RBC) [Ratio] 13.3 % Normal 11.5-14.5 [facility] Comment on above: Performed By: #### 4 [id number] #### TERA MATHEWS (2012) [facility] [address] [place] [address] Hematocrit (Bld) [Volume fraction] 39.0 % Normal 33.6-46.8 [facility] Comment on above: Performed By: #### 4 [id number] #### TERA MATHEWS (2012) [facility] [address] [place] [address] Hemoglobin (Bld) [Mass/Vol] 13.3 g/dL Normal 11.7-15.8 [facility] Comment on above: Performed By: #### 4 [id number] #### TERA MATHEWS (2012) [facility] [address] [place] [address] Immature granulocytes/100 WBC (Bld) 0.2 % Normal [facility] Comment on above: Performed By: #### 4 [id number] #### TERA MATHEWS (2012) [facility] [address] [place] [address] Lymphocytes/100 WBC (Bld) 26.6 % Normal [facility] Comment on above: Performed By: #### 4 [id number] #### TERA MATHEWS (2012) [facility] [address] [place] [address] MCH (RBC) [Entitic mass] 30.8 pg Normal 27.5-32.3 [facility] Comment on above: Performed By: #### 4 [id number] #### TERA MATHEWS (2012) [facility] [address] [place] [address] MCHC (RBC) [Mass/Vol] 34.1 g/dL Normal 30.7-35.5 [facility] Comment on above: Performed By: #### 4 [id number] #### TERA MATHEWS (2012) [facility] [address] [place] [address] MCV (RBC) [Entitic vol] 90.3 fL Normal 80.2-99 G [facility] Comment on above: Performed By: #### 4 [id number] #### TERA MATHEWS (2012) [facility] [address] [place] [address] Monocytes/100 WBC (Bld) 5.7 % Normal [facility] Comment on above: Performed By: #### 4 [id number] #### TERA MATHEWS (2012) [facility] [address] [place] [address] Neutrophils/100 WBC (Bld) 66.1 % Normal [facility] Comment on above: Performed By: #### 4 [id number] #### TERA MATHEWS (2012) [facility] [address] [place] [address] PLATELET COUNT 233 x10*3/uL Normal 150-400 [facility] Comment on above: Performed By: #### 4 [id number] #### TERA MATHEWS (2012) [facility] [address] [place] [address] RED BLOOD CELL COUNT 4.32 x10*6/uL Normal 3.60-5.20 [facility] Comment on above: Performed By: #### 4 [id number] #### TERA MATHEWS (2012) [facility] [address] [place] [address] WHITE BLOOD CELLS 6.5 x10*3/uL Normal 4.3-10.3 [facility] Comment on above: Performed By: #### 4 [id number] #### TERA MATHEWS (2012) [facility] [address] [place] [address] CBC AND DIFFERENTIALon 11-23 ABSOLUTE BASOPHIL 0.1 x10*3/uL Normal 0.0-0.1 [facility] Comment on above: Performed By: #### 4 [id number], [id number] #### TERA MATHEWS (2012) [facility] [address] [place] [address] ABSOLUTE EOSINOPHIL 0.2 x10*3/uL Normal 0.1-0.3 [facility] Comment on above: Performed By: #### 4 [id number], [id number] #### TERA MATHEWS (2012) [facility] [address] [place] [address] ABSOLUTE IMMATURE GRANULOCYTES 0.0 x10*3/uL Normal 0.0-0.1 [facility] Comment on above: Performed By: #### 4 [id number], [id number] #### TERA MATHEWS (2012) [facility] [address] [place] [address] ABSOLUTE LYMPH 2.5 x10*3/uL Normal 1.2-3.3 [facility] Comment on above: Performed By: #### 4 [id number], [id number] #### TERA MATHEWS (2012) [facility] [address] [place] [address] ABSOLUTE MONO 0.4 x10*3/uL Normal 0.2-0.6 [facility] Comment on above: Performed By: #### 4 [id number], [id number] #### TERA MATHEWS (2012) [facility] [address] [place] [address] ABSOLUTE NEUTROPHIL 3.1 x10*3/uL Normal 2.4-6.6 [facility] Comment on above: Performed By: #### 4 [id number], [id number] #### TERA MATHEWS (2012) [facility] [address] [place] [address] Basophils/100 WBC (Bld) 1.0 % Normal [facility] Comment on above: Performed By: #### 4 [id number], [id number] #### TERA MATHEWS (2012) [facility] [address] [place] [address] Eosinophils/100 WBC (Bld) 3.3 % Normal [facility] Comment on above: Performed By: #### 4 [id number], [id number] #### TERA MATHEWS (2012) [facility] [address] [place] [address] Erythrocyte distribution width (RBC) [Ratio] 12.8 % Normal 11.5-14.5 [facility] Comment on above: Performed By: #### 4 [id number], [id number] #### TERA MATHEWS (2012) [facility] [address] [place] [address] Hematocrit (Bld) [Volume fraction] 40.2 % Normal 33.6-46.8 [facility] Comment on above: Performed By: #### 4 [id number], [id number] #### TERA MATHEWS (2012) [facility] [address] [place] [address] Hemoglobin (Bld) [Mass/Vol] 13.4 g/dL Normal 11.7-15.8 [facility] Comment on above: Performed By: #### 4 [id number], [id number] #### TERA MATHEWS (2012) [facility] [address] [place] [address] Immature granulocytes/100 WBC (Bld) 0.0 % Normal [facility] Comment on above: Performed By: #### 4 [id number], [id number] #### TERA MATHEWS (2012) [facility] [address] [place] [address] Lymphocytes/100 WBC (Bld) 40.0 % Normal [facility] Comment on above: Performed By: #### 4 [id number], [id number] #### TERA MATHEWS (2012) [facility] [address] [place] [address] MCH (RBC) [Entitic mass] 31.1 pg Normal 27.5-32.3 [facility] Comment on above: Performed By: #### 4 [id number], [id number] #### TERA MATHEWS (2012) [facility] [address] [place] [address] MCHC (RBC) [Mass/Vol] 33.3 g/dL Normal 30.7-35.5 [facility] Comment on above: Performed By: #### 4 [id number], [id number] #### TERA MATHEWS (2012) [facility] [address] [place] [address] MCV (RBC) [Entitic vol] 93.3 fL Normal 80.2-99 G [facility] Comment on above: Performed By: #### 4 [id number], [id number] #### TERA MATHEWS (2012) [facility] [address] [place] [address] Monocytes/100 WBC (Bld) 6.9 % Normal G [facility] Comment on above: Performed By: #### 4 [id number], [id number] #### TERA MATHEWS (2012) [facility] [address] [place] [address] Neutrophils/100 WBC (Bld) 48.8 % Normal [facility] Comment on above: Performed By: #### 4 [id number], [id number] #### TERA MATHEWS (2012) [facility] [address] [place] [address] PLATELET COUNT 264 x10*3/uL Normal 150-400 [facility] Comment on above: Performed By: #### 4 [id number], [id number] #### TERA MATHEWS (2012) [facility] [address] [place] [address] RED BLOOD CELL COUNT 4.31 x10*6/uL Normal 3.60-5.20 [facility] Comment on above: Performed By: #### 4 [id number], [id number] #### TERA MATHEWS (2012) [facility] [address] [place] [address] WHITE BLOOD CELLS 6.3 x10*3/uL Normal 4.3-10.3 [facility] Comment on above: Performed By: #### 4 [id number], [id number] #### TERA MATHEWS (2012) [facility] [address] [place] [address] CBC with DifferentialOrdered By: Background Lab on 11-23-2022 Absolute Immature Granulocytes 0.0 [facility] Age [Time] 93.3 fL 80.2 - 99 fL [facility] Age [Time] 31.1 pg 27.5 - 32.3 pg [facility] Age [Time] 33.3 g/dL 30.7 - 35.5 g/dL [facility] B. burgdorferi IgM IB Ql (CSF) 40.0 % [facility] Basophils (Bld) [#/Vol] 0.1 10*3/uL [facility] Basophils/100 WBC (Body fld) 1.0 % [facility] Eosinophils (Bld) [#/Vol] 2.5 10*3/uL [facility] Eosinophils (Bld) [#/Vol] 0.4 10*3/uL [facility] Eosinophils (Bld) [#/Vol] 0.2 10*3/uL [facility] Eosinophils/100 WBC (Bld) 3.3 % [facility] Erythrocyte distribution width (RBC) [Ratio] 12.8 % 11.5 - 14.5 % [facility] Hematocrit (Bld) [Volume fraction] 40.2 % 33.6 - 46.8 % [facility] Hexanoylglycine (U) [Moles/Vol] 13.4 g/dL 11.7 - 15.8 g/dL [facility] Immature granulocytes/100 WBC (Bld) 0.0 % [facility] Monocytes/100 WBC (Bld) 6.9 % G [facility] Neurotensin (P) [Mass/Vol] 48.8 % [facility] Neutrophils (Bld) [#/Vol] 3.1 10*3/uL [facility] Platelets (Bld) [#/Vol] 264 10*3/uL [facility] RBC (Bld) [#/Vol] 4.31 10*6/uL [facility] WBC LM Ql (Sput) 6.3 [facility] COMPREHENSIVE METABOLIC PANE Carlos 11-23-2022 Albumin [Mass/Vol] 4.6 g/dL Normal 3.5-5.0 [facility] Comment on above: Performed By: #### 4 [id number], [id number] #### TERA MATHEWS (2012) [facility] [address] [place] [address] ALK PHOS 54 U/L Normal 24-126 [facility] Comment on above: Performed By: #### 4 [id number], [id number] #### TERA MATHEWS (2012) [facility] [address] [place] [address] ALT [Catalytic activity/Vol] 17 U/L Normal 4-35 [facility] Comment on above: Performed By: #### 4 [id number], [id number] #### TERA MATHEWS (2012) [facility] [address] [place] [address] Anion gap [Moles/Vol] 8 mmol/L Normal 8-12 [facility] Comment on above: Performed By: #### 4 [id number], [id number] #### TERA MATHEWS (2012) [facility] [address] [place] [address] AST [Catalytic activity/Vol] 28 U/L Normal 3-47 [facility] Comment on above: Performed By: #### 4 [id number], [id number] #### TERA MATHEWS (2012) [facility] [address] [place] [address] Bilirubin [Mass/Vol] 0.4 mg/dL Normal 0.2-1.6 [facility] Comment on above: Performed By: #### 4 [id number], [id number] #### TERA MATHEWS (2012) [facility] [address] [place] [address] Calcium [Mass/Vol] 10.6 mg/dL High 8.4-10.4 [facility] Comment on above: Performed By: #### 4 [id number], [id number] #### TERA MATHEWS (2012) [facility] [address] [place] [address] Chloride [Moles/Vol] 103 mmol/L Normal 96-109 [facility] Comment on above: Performed By: #### 4 [id number], [id number] #### TERA MATHEWS (2012) [facility] [address] [place] [address] CO2 [Moles/Vol] 30 mmol/L Normal 22-30 [facility] Oncology [facility] Comment on above: Performed By: #### 4 [id number], [id number] #### TERA MATHEWS (2012) [facility] [address] [place] [address] Creatinine [Mass/Vol] 0.82 mg/dL Normal 0.52-1.04 [facility] Core Oncology [facility] Comment on above: Performed By: #### 4 [id number], [id number] #### TERA MATHEWS (2012) [facility] [address] [place] [address] GLOMERULAR FILTRATION RATE ML/MIN/1.73 SQ M.PREDICTED >90.0 Normal >=60.0 [facility] Comment on above: Result Comment: [...] Kidney Int Suppl.2013;3:1-150 Performed By: #### 4 [id number], [id number] #### TERA MATHEWS (2012) [facility] [address] [place] [address] Glucose [Mass/Vol] 93 mg/dL Normal 65-100 [facility] Comment on above: Performed By: #### 4 [id number], [id number] #### TERA MATHEWS (2012) [facility] [address] [place] [address] Potassium [Moles/Vol] 3.8 mmol/L Normal 3.6-5.1 [facility] Comment on above: Performed By: #### 4 [id number], [id number] #### TERA MATHEWS (2012) [facility] [address] [place] [address] Protein [Mass/Vol] 7.9 g/dL Normal 6.3-8.2 [facility] Comment on above: Performed By: #### 4 [id number], [id number] #### TERA MATHEWS (2012) [facility] [address] [place] [address] Sodium [Moles/Vol] 141 mmol/L Normal 135-147 [facility] Comment on above: Performed By: #### 4 [id number], [id number] #### TERA MATHEWS (2012) [facility] [address] [place] [address] Urea nitrogen [Mass/Vol] 11 mg/dL Normal 8-26 [facility] Comment on above: Performed By: #### 4 [id number], [id number] #### TERA MATHEWS (2012) [facility] [address] [place] [address] CT ABDOMEN PELVIS WITH IV CO NTRASTon [...] and low back pain 20g LAC 100mL Pwps412 by JCochran Normal [facility] CT Abdomen and Pelvis W cont rast Ava 11-23-2022 No acute intra-abdominal inflammatory process identified. [facility] CT ABDOMEN PELVIS WITH IV CONTRAST: 11/23/2022 [...] normal limits. The osseous structures appear unremarkable. [facility] Aviva Baez MD - 11/23/2022 CT ABDOMEN [...] IMPRESSION: No acute intra-abdominal inflammatory process identified. [facility] Radiology Study observation (narrative) [facility] CT Abdomen and Pelvis W cont rast IVOrdered By: Aviva Baez on 11-23-2022 [facility] Work Phone: Comprehensive metabolic 2000 panelon 11-23-2022 Albumin (Syn fld) [Mass/Vol] 4.6 g/dL 3.5 - 5.0 g/dL [facility] Aldosterone (U) [Mass/Vol] 54 U/L 24 - 126 U/L [facility] ALT [Catalytic activity/Vol] 17 U/L 4 - 35 U/L [facility] Anion gap [Moles/Vol] 8 mmol/L 8 - 12 mmol/L [facility] AST [Catalytic activity/Vol] 28 U/L 3 - 47 U/L [facility] Bilirubin [Mass/Vol] 0.4 mg/dL 0.2 - 1 .6 mg/dL [facility] Calcium [Mass/Vol] 10.6 mg/dL High 8.4 - 10. 4 mg/dL [facility] Calcium hydrogen phosphate dihydrate crystals LM Ql (Urine sed) 11 mg/dL 8 - 26 mg/dL [facility] Chloride [Moles/Vol] 103 mmol/L 96 - 10 9 mmol/L [facility] CMV IgM IF Ql 30 mmol/L 22 - 30 mmol/L [facility] Creatinine [Mass/Vol] 0.82 mg/dL 0.52 - 1.04 mg/dL [facility] GFR/1.73 sq M.predicted MDRD (S/P/Bld) [Vol rate/Area] - PINF [facility] Comment on above: eGFR calculation [...] [Mass/Vol] 93 mg/dL 65 - 100 mg/dL [facility] Interpretation and review of laboratory results Abnormal [facility] Potassium [Moles/Vol] 3.8 mmol/L 3.6 - 5.1 mmol/L [facility] Protein [Mass/Vol] 7.9 g/dL 6.3 - 8.2 g/dL [facility] Sodium [Moles/Vol] 141 mmol/L 135 - 147 mmol/L [facility] LACTATEon 11-23-2022 Lactate [Moles/Vol] 0.7 mmol/L Normal 0.7-2.0 [facility] Comment on above: Performed By: #### 4 [id number] #### TERA MATHEWS (2013) [facility] [address] [place] [address] LIPASEon 11-23-2022 Lipase [Catalytic activity/Vol] 72 U/L Normal 23-300 [facility] Comment on above: Performed By: #### 4 [id number], [id number] #### TERA AMTHEWS (2013) [facility] [address] [place] [address] Lactate - ED and Inpatient: A result >2 mmol/L will create an auto-follow up lactate order to be drawn in 2 hours.on 11-23-2022 Interpretation and review of laboratory results Normal [facility] Lactate [Moles/Vol] 0.7 mmol/L 0.7 - 2. 0 mmol/L [facility] Lipaseon 11-23-2022 Interpretation and review of laboratory results Normal [facility] Lipase [Catalytic activity/Vol] 72 U/L 23 - 300 U/L [facility] No Panel Informationon 11-23 [facility] POCT ED/FC/SURG Urine Pregon 11-23-2022 Beta HCG ( test) Ql (U) Negative [facility] Interpretation and review of laboratory results Normal [facility] Grants Director Acceptable YES [facility] URINE CHEM STRIP ONLYon 10-28 Appearance (U) Cloudy Normal [facility] Comment on above: Performed By: #### 4 [id number] #### TERA MATHEWS (2012) [facility] [address] [place] [address] BILIRUBIN UA Negative Normal Negative [facility] Comment on above: Performed By: #### 4 [id number] #### TERA MATHEWS (2012) [facility] [address] [place] [address] Color (U) Dark Yellow Normal [facility] Comment on above: Performed By: #### 4 [id number] #### TERA MATHEWS (2012) [facility] [address] [place] [address] Glucose Ql (U) Negative Normal Negative [facility] Comment on above: Performed By: #### 4 [id number] #### TERA MATHEWS (2012) [facility] [address] [place] [address] Ketones Ql (U) Trace Abnormal Negative [facility] Comment on above: Performed By: #### 4 [id number] #### TERA MATHEWS (2012) [facility] [address] [place] [address] LEUKOESTERASE Moderate Abnormal Negative [facility] Comment on above: Performed By: #### 4 [id number] #### TERA MATHEWS (2012) [facility] [address] [place] [address] Nitrite Ql (U) Negative Normal Negative [facility] Comment on above: Performed By: #### 4 [id number] #### TERA MATHEWS (2012) [facility] [address] [place] [address] OCCULT BLD Moderate Abnormal Negative [facility] Comment on above: Performed By: #### 4 [id number] #### TERA MATHEWS (2012) [facility] [address] [place] [address] PH, URINE 5.5 Normal [facility] Comment on above: Performed By: #### 4 [id number] #### TERA MATHEWS (2012) [facility] [address] [place] [address] Protein Ql (U) Negative Normal Negative [facility] Comment on above: Performed By: #### 4 [id number] #### TERA MATHEWS (2012) [facility] [address] [place] [address] SPECIFIC GRAVITY, URINE 1.020 Normal [facility] Comment on above: Performed By: #### 4 [id number] #### TERA MATHEWS (2012) [facility] [address] [place] [address] UROBILINOGEN UA <2.0 Normal <2.0 [facility] Comment on above: Performed By: #### 4 [id number] #### TERA MATHEWS (2012) [facility] [address] [place] [address] Urine DipOrdered By: Alexia cazares on 11-23-2022 Acetone [Mass/Vol] Trace Abnormal Negative [facility] Appearance (Body fld) Cloudy [facility] Bilirubin Ql (U) Negative Negative [facility] Color (Stone) Dark Yellow [facility] G6PD (RBC) [Catalytic activity/Vol] Negative Negative [facility] Hemoglobin.gastrointest inal (Stl) [Mass/Mass] Moderate Abnormal Negative [facility] Interpretation and review of laboratory results Abnormal [facility] Leukocyte esterase Test strip Ql (U) Moderate Abnormal Negative [facility] Nitrite Test strip (U) [Mass/Vol] Negative Negative [facility] pH (Gillian fld) 5.5 [facility] Protein (U) [Mass/Vol] Negative Negative [facility] Specific gravity (U) [Rel density] 1.020 [facility] Urobilinogen Qn (U) <2.0 NINF - 2.0 [facility] GC AND CHLAMYDIA AMPLIFIED P ROBEon 11-16-2022 GC AND CHLAMYDIA AMPLIFIED PROBE GC AMPLIFIED OR Positive Negative CHLAMYDIA, DNA PROBE Negative Negative Normal Negative [facility] Comment on above: Performed By: #### 4 [id number], [id number] #### TERA MATHEWS (2012) [facility] [address] [place] [address] TRICHOMONAS AMPLIFIED PROBEo n 11-16-2022 TRICHOMONAS AMPLIFIED PROBE Negative Normal Negative [facility] Comment on above: Performed By: #### 4 [id number], [id number] ###Myrna MATHEWS (2013) [facility] [address] [place] [address] URINALYSIS WITH REFLEX CULTU REon 11-16-2022 Appearance (U) Cloudy Normal [facility] Comment on above: Performed By: #### 4 [id number] #### [address] BILIRUBIN UA Negative Normal Negative [facility] Comment on above: Performed By: #### 4 [id number] #### [place] [address] [place] Color (U) Yellow Normal [facility] Comment on above: Performed By: #### 4 [id number] #### [address] Glucose Ql (U) Negative Normal Negative [facility] Comment on above: Performed By: #### 4 [id number] #### [address] Ketones Ql (U) Negative Normal Negative [facility] Comment on above: Performed By: #### 4 [id number] #### [address] LEUKOESTERASE Large Abnormal Negative [facility] Comment on above: Performed By: #### 4 [id number] #### [place] [address] [place] Nitrite Ql (U) Negative Normal Negative [facility] Comment on above: Performed By: #### 4 [id number] #### [address] OCCULT BLD Moderate Abnormal Negative [facility] Comment on above: Performed By: #### 4 [id number] #### [address] PH, URINE 5.0 Normal [facility] Comment on above: Performed By: #### 4 [id number] #### [place] [address] [place] Protein Ql (U) Negative Normal Negative [facility] Comment on above: Performed By: #### 4 [id number] #### [address] RBC LM.HPF (Urine sed) [#/Area] 3 /[HPF] Normal <=5 [facility] Comment on above: Performed By: #### 4 [id number] #### [address] SPECIFIC GRAVITY, URINE 1.011 Normal G [facility] Comment on above: Performed By: #### 4 [id number] #### [address] SQUAMOUS EPI CELLS 7 /LPF Normal [facility] Comment on above: Performed By: #### 4 [id number] #### [address] UROBILINOGEN UA Negative Normal <2.0 [facility] Comment on above: Performed By: #### 4 [id number] #### [address] WBC LM.HPF (Urine sed) [#/Area] 100 /[HPF] High <=5 [facility] Comment on above: Performed By: #### 4 [id number] #### [address] URINE CULTUREon 11-16-2022 Bacteria identified Cx Nom (U) URINE CULTURE, ROUTINE Mixed skin and fecal blanca Normal [facility] Comment on above: Order Comment: >100, 000/mL Performed By: #### 4 [id number], [id number] #### TERA MATHEWS (2013) [facility] [address] [place] [address] GC AND CHLAMYDIA AMPLIFIED P ROBEon 10-20-2022 GC AND CHLAMYDIA AMPLIFIED PROBE GC AMPLIFIED OR Negative Negative CHLAMYDIA, DNA PROBE Positive Negative Abnormal Negative [facility] Comment on above: Performed By: #### 4 [id number] #### [address] URINE CULTUREon 10-20-2022 Bacteria identified Cx [...] SMX Susc Islt R >=320 F Resistant [facility] Comment on above: Performed By: #### 4 [id number], [id number] #### TERA MATHEWS (2012) [facility] [address] [place] [address] BETA-HCG QUANTITATIVE SERUM( DO NOT USE FOR TUMOR MARKER, SEE [id number])on 09-26-2022 GONADOTROPIN, CHORIONIC (HCG) QUANT <2.4 Normal See Comment [facility] Comment on above: Result Comment: HCG REFERENCE RANGE: ?Non- female ? ? ?<5 mIU/mL ? Gestational Age (weeks) ? ? ?hCG Mean (mIU/mL) ? ?1-10 ?31,142 ?11-15 ? 55,425 ? ? ?16-22 ? 27,023 ? ? ?23-40 ? 24,031 ? Performed By: #### 4 [id number], [id number] #### TERA MATHEWS (2012) [facility] [address] [place] [address] CBC AND DIFFERENTIALon 09-26 ABSOLUTE BASOPHIL 0.0 x10*3/uL Normal 0.0-0.1 [facility] Comment on above: Performed By: #### 4 [id number], [id number] #### TERA MATHEWS (2012) [facility] [address] [place] [address] ABSOLUTE EOSINOPHIL 0.1 x10*3/uL Normal 0.1-0.3 [facility] Comment on above: Performed By: #### 4 [id number], [id number] #### TERA MATHEWS (2012) [facility] [address] [place] [address] ABSOLUTE IMMATURE GRANULOCYTES 0.0 x10*3/uL Normal 0.0-0.1 [facility] Comment on above: Performed By: #### 4 [id number], [id number] #### TERA MATHEWS (2012) [facility] [address] [place] [address] ABSOLUTE LYMPH 1.2 x10*3/uL Normal 1.2-3.3 [facility] Comment on above: Performed By: #### 4 [id number], [id number] #### TERA MATHEWS (2012) [facility] [address] [place] [address] ABSOLUTE MONO 0.3 x10*3/uL Normal 0.2-0.6 [facility] Comment on above: Performed By: #### 4 [id number], [id number] #### TERA MATHEWS (2012) [facility] [address] [place] [address] ABSOLUTE NEUTROPHIL 3.0 x10*3/uL Normal 2.4-6.6 [facility] Comment on above: Performed By: #### 4 [id number], [id number] #### TERA MATHEWS (2012) [facility] [address] [place] [address] Basophils/100 WBC (Bld) 0.9 % Normal [facility] Comment on above: Performed By: #### 4 [id number], [id number] #### TERA MATHEWS (2012) [facility] [address] [place] [address] Eosinophils/100 WBC (Bld) 1.5 % Normal [facility] Comment on above: Performed By: #### 4 [id number], [id number] #### TERA MATHEWS (2012) [facility] [address] [place] [address] Erythrocyte distribution width (RBC) [Ratio] 13.9 % Normal 11.5-14.5 [facility] Comment on above: Performed By: #### 4 [id number], [id number] #### TERA MATHEWS (2012) [facility] [address] [place] [address] Hematocrit (Bld) [Volume fraction] 40.3 % Normal 33.6-46.8 [facility] Comment on above: Performed By: #### 4 [id number], [id number] #### TERA MATHEWS (2012) [facility] [address] [place] [address] Hemoglobin (Bld) [Mass/Vol] 13.2 g/dL Normal 11.7-15.8 [facility] Comment on above: Performed By: #### 4 [id number], [id number] #### TERA MATHEWS (2012) [facility] [address] [place] [address] Immature granulocytes/100 WBC (Bld) 0.0 % Normal [facility] Comment on above: Performed By: #### 4 [id number], [id number] #### TERA MATHEWS (2012) [facility] [address] [place] [address] Lymphocytes/100 WBC (Bld) 27.0 % Normal [facility] Comment on above: Performed By: #### 4 [id number], [id number] #### TERA MATHEWS (2012) [facility] [address] [place] [address] MCH (RBC) [Entitic mass] 30.8 pg Normal 27.5-32.3 [facility] Comment on above: Performed By: #### 4 [id number], [id number] #### TERA MATHEWS (2012) [facility] [address] [place] [address] MCHC (RBC) [Mass/Vol] 32.8 g/dL Normal 30.7-35.5 [facility] Comment on above: Performed By: #### 4 [id number], [id number] #### TERA MATHEWS (2012) [facility] [address] [place] [address] MCV (RBC) [Entitic vol] 93.9 fL Normal 80.2-99 [facility] Comment on above: Performed By: #### 4 [id number], [id number] #### TERA MATHEWS (2012) [facility] [address] [place] [address] Monocytes/100 WBC (Bld) 5.5 % Normal [facility] Comment on above: Performed By: #### 4 [id number], [id number] #### TERA MATHEWS (2012) [facility] [address] [facility] [place] [address] Neutrophils/100 WBC (Bld) 65.1 % Normal [facility] Comment on above: Performed By: #### 4 [id number], [id number] #### TERA MATHEWS (2012) [facility] [address] [facility] [place] [address] PLATELET COUNT 179 x10*3/uL Normal 150-400 [facility] Comment on above: Performed By: #### 4 [id number], [id number] #### TERA MATHEWS (2012) [facility] [address] [facility] [address] RED BLOOD CELL COUNT 4.29 x10*6/uL Normal 3.60-5.20 [facility] Comment on above: Performed By: #### 4 [id number], [id number] #### TERA MATHEWS (2012) [facility] [address] [facility] [address] WHITE BLOOD CELLS 4.6 x10*3/uL Normal 4.3-10.3 [facility] Comment on above: Performed By: #### 4 [id number], [id number] #### TERA MATHEWS (2012) [facility] [address] [facility] [address] CBC with differentialon 05-0 Absolute Immature Granulocytes 0.0 [facility] Age [Time] 93.9 fL 80.2 - 99 fL [facility] Age [Time] 30.8 pg 27.5 - 32.3 pg [facility] Age [Time] 32.8 g/dL 30.7 - 35.5 g/dL [facility] B. burgdorferi IgM IB Ql (CSF) 27.0 % [facility] Basophils (Bld) [#/Vol] 0.0 10*3/uL [facility] Basophils/100 WBC (Body fld) 0.9 % [facility] Eosinophils (Bld) [#/Vol] 1.2 10*3/uL [facility] Eosinophils (Bld) [#/Vol] 0.3 10*3/uL [facility] Eosinophils (Bld) [#/Vol] 0.1 10*3/uL [facility] Eosinophils/100 WBC (Bld) 1.5 % [facility] Erythrocyte distribution width (RBC) [Ratio] 13.9 % 11.5 - 14.5 % [facility] Hematocrit (Bld) [Volume fraction] 40.3 % 33.6 - 46.8 % [facility] Hexanoylglycine (U) [Moles/Vol] 13.2 g/dL 11.7 - 15.8 g/dL [facility] Immature granulocytes/100 WBC (Bld) 0.0 % [facility] Monocytes/100 WBC (Bld) 5.5 % [facility] Neurotensin (P) [Mass/Vol] 65.1 % [facility] Neutrophils (Bld) [#/Vol] 3.0 10*3/uL [facility] Platelets (Bld) [#/Vol] 179 10*3/uL [facility] RBC (Bld) [#/Vol] 4.29 10*6/uL [facility] WBC LM Ql (Sput) 4.6 [facility] COMPREHENSIVE METABOLIC PANE Carlos 09-26-2022 Albumin [Mass/Vol] 4.5 g/dL Normal 3.5-5.0 [facility] Comment on above: Performed By: #### 4 [id number], [id number] #### TERA MATHEWS (2012) [facility] [address] [facility] [employer] [place] [address] ALK PHOS 43 U/L Normal 24-126 [facility] Comment on above: Performed By: #### 4 [id number], [id number] #### TERA MATHEWS (2012) [facility] [address] [employer] [place] [place] [address] ALT [Catalytic activity/Vol] 17 U/L Normal 4-35 [facility] Comment on above: Performed By: #### 4 [id number], [id number] #### TERA MATHEWS (2012) [facility] [address] [employer] [facility] [place] [address] Anion gap [Moles/Vol] 9 mmol/L Normal 8-12 [facility] Comment on above: Performed By: #### 4 [id number], [id number] #### TERA MATHEWS (2012) [facility] [address] [place] [address] AST [Catalytic activity/Vol] 21 U/L Normal 3-47 [facility] Comment on above: Performed By: #### 4 [id number], [id number] #### TERA MATHEWS (2012) [facility] [address] [place] [address] Bilirubin [Mass/Vol] 0.5 mg/dL Normal 0.2-1.6 [facility] Comment on above: Performed By: #### 4 [id number], [id number] #### TERA MATHEWS (2012) [facility] [address] [place] [address] Calcium [Mass/Vol] 9.6 mg/dL Normal 8.4-10.4 [facility] Comment on above: Performed By: #### 4 [id number], [id number] #### TERA MATHEWS (2012) [facility] [address] [place] [address] Chloride [Moles/Vol] 103 mmol/L Normal 96-109 [facility] Comment on above: Performed By: #### 4 [id number], [id number] #### TERA MATHEWS (2012) [facility] [address] [place] [address] CO2 [Moles/Vol] 26 mmol/L Normal 22-30 [facility] Comment on above: Performed By: #### 4 [id number], [id number] #### TERA MATHEWS (2012) [facility] [address] [place] [address] Creatinine [Mass/Vol] 0.61 mg/dL Normal 0.52-1.04 [facility] Comment on above: Performed By: #### 4 [id number], [id number] #### TERA MATHEWS (2012) [facility] [address] [place] [address] GLOMERULAR FILTRATION RATE ML/MIN/1.73 SQ M.PREDICTED >90.0 Normal >=60.0 [facility] Comment on above: Result Comment: [...] Kidney Int Suppl.2013;3:1-150 Performed By: #### 4 [id number], [id number] #### TERA MATHEWS (2012) [facility] [address] [place] [address] Glucose [Mass/Vol] 93 mg/dL Normal 65-100 [facility] Comment on above: Performed By: #### Norah [id number], [id number] #### TERA MATHEWS (2012) [facility] [address] [place] [address] Potassium [Moles/Vol] 3.6 mmol/L Normal 3.6-5.1 [facility] Comment on above: Performed By: #### 4 [id number], [id number] #### TERA MATHEWS (2012) [facility] [address] [place] [address] Protein [Mass/Vol] 7.7 g/dL Normal 6.3-8.2 [facility] Comment on above: Performed By: #### 4 [id number], [id number] #### TERA MATHEWS (2012) [facility] [address] [place] [address] Sodium [Moles/Vol] 138 mmol/L Normal 135-147 [facility] Comment on above: Performed By: #### 4 [id number], [id number] #### TERA MATHEWS (2012) [facility] [address] [place] [address] Urea nitrogen [Mass/Vol] 15 mg/dL Normal 8-26 [facility] Comment on above: Performed By: #### 4 [id number], [id number] #### TERA MATHEWS (2012) [facility] [address] [place] [address] Comprehensive metabolic 2000 panelon 09-26-2022 Albumin (Syn fld) [Mass/Vol] 4.5 g/dL 3.5 - 5.0 g/dL [facility] Aldosterone (U) [Mass/Vol] 43 U/L 24 - 126 U/L [facility] ALT [Catalytic activity/Vol] 17 U/L 4 - 35 U/L [facility] Anion gap [Moles/Vol] 9 mmol/L 8 - 12 mmol/L [facility] AST [Catalytic activity/Vol] 21 U/L 3 - 47 U/L [facility] Bilirubin [Mass/Vol] 0.5 mg/dL 0.2 - 1 .6 mg/dL [facility] Calcium [Mass/Vol] 9.6 mg/dL 8.4 - 10. 4 mg/dL [facility] Calcium hydrogen phosphate dihydrate crystals LM Ql (Urine sed) 15 mg/dL 8 - 26 mg/dL [facility] Chloride [Moles/Vol] 103 mmol/L 96 - 10 9 mmol/L [facility] CMV IgM IF Ql 26 mmol/L 22 - 30 mmol/L [facility] Creatinine [Mass/Vol] 0.61 mg/dL 0.52 - 1.04 mg/dL [facility] GFR/1.73 sq M.predicted MDRD (S/P/Bld) [Vol rate/Area] - PINF [facility] Comment on above: eGFR calculation [...] [Mass/Vol] 93 mg/dL 65 - 100 mg/dL [facility] Potassium [Moles/Vol] 3.6 mmol/L 3.6 - 5.1 mmol/L [facility] Protein [Mass/Vol] 7.7 g/dL 6.3 - 8.2 g/dL [facility] Sodium [Moles/Vol] 138 mmol/L 135 - 147 mmol/L [facility] HCG Qn (U)Ordered By: Ayleen Mcconnell on 09-26-2022 Beta HCG ( test) Ql (U) Negative [facility] HCG URINE (PREG)on 3 HCG ( test) Ql (U) Negative Normal [facility] Comment on above: Performed By: #### 4 [id number], [id number] #### TERA MATHEWS (2012) [facility] [address] [place] [address] HCG [Moles/Vol]on 09-26-2022 HCG Qn See Comment mIU/mL [facility] Comment on above: HCG REFERENCE RANGE: Non- female <5 mIU/mL Gestational Age (weeks) hCG Mean (mIU/mL) 1-10 31,142 11-15 55,425 16-22 27,023 23-40 24,031 [facility] LIPASEon 09-26-2022 Lipase [Catalytic activity/Vol] 48 U/L Normal 23-300 [facility] Comment on above: Performed By: #### 4 [id number], [id number] #### TERA MATHEWS (2012) [facility] [address] [place] [address] Lipaseon 09-26-2022 Lipase [Catalytic activity/Vol] 48 U/L 23 - 300 U/L [facility] No Panel Informationon 09-26 Interpretation and review of laboratory results Normal [facility] POCT ED/FC/SURG Urine Pregon 09-26-2022 Beta HCG ( test) Ql (U) Negative [facility] Interpretation and review of laboratory results Normal [facility] Grants Director Acceptable yes [facility] URINE CHEM STRIP ONLYon Appearance (U) Clear Normal [facility] Comment on above: Performed By: #### 4 [id number], [id number] #### TERA MATHEWS (2012) [facility] [address] [place] [address] BILIRUBIN UA Negative Normal Negative [facility] Comment on above: Performed By: #### 4 [id number], [id number] #### TERA MATHEWS (2012) [facility] [address] [place] [address] Color (U) Light Yellow Normal [facility] Comment on above: Performed By: #### 4 [id number], [id number] #### TERA MATHEWS (2012) [facility] [address] [place] [address] Glucose Ql (U) Negative Normal Negative [facility] Comment on above: Performed By: #### 4 [id number], [id number] #### TERA MATHEWS (2012) [facility] [address] [place] [address] Ketones Ql (U) Negative Normal Negative [facility] Comment on above: Performed By: #### 4 [id number], [id number] #### TERA MATHEWS (2012) [facility] [address] [place] [address] LEUKOESTERASE Negative Normal Negative [facility] Comment on above: Performed By: #### 4 [id number], [id number] #### TERA MATHEWS (2012) [facility] [address] [place] [address] Nitrite Ql (U) Negative Normal Negative [facility] Comment on above: Performed By: #### 4 [id number], [id number] #### TERA MATHEWS (2012) [facility] [address] [place] [address] OCCULT BLD Negative Normal Negative [facility] Comment on above: Performed By: #### 4 [id number], [id number] #### TERA MATHEWS (2012) [facility] [address] [place] [address] PH, URINE 7.0 Normal [facility] Comment on above: Performed By: #### 4 [id number], [id number] #### TERA MATHEWS (2012) [facility] [address] [place] [address] Protein Ql (U) Negative Normal Negative [facility] Comment on above: Performed By: #### 4 [id number], [id number] #### TERA MATHEWS (2012) [facility] [address] [place] [address] SPECIFIC GRAVITY, URINE 1.010 Normal [facility] Comment on above: Performed By: #### 4 [id number], [id number] #### TERA MATHEWS (2012) [facility] [address] [place] [address] UROBILINOGEN UA <2.0 Normal <2.0 [facility] Comment on above: Performed By: #### 4 [id number], [id number] #### TERA MATHEWS (2013) [facility] [address] [place] [address] US Ovary for torsionon 09-26 AGE-APPROPRIATE UTERUS AND OVARIES. : [facility] EXAM: US PELVIS-TORSION STUDY HISTORY: [...] No dominant ovarian cyst. No pelvic ascites. [facility] Roshan Mary MD - 09/26/2022 [...] IMPRESSION: AGE-APPROPRIATE UTERUS AND OVARIES. : [facility] Radiology Study observation (narrative) [facility] US Ovary for torsionOrdered By: Roshan Mary on 09-26-2022 [employer] Work Phone: US PELVIS-TORSION STUDYon US PELVIS-TORSION [...] Order Comments: Ordering Physician: Jeanie Menjivar APRN [employer] Dose: Normal [facility] Urine DipOrdered By: [facility] on 09-26-2022 Acetone [Mass/Vol] Negative Negative [facility] Appearance (Body fld) Clear [facility] Bilirubin Ql (U) Negative Negative [facility] Color (Stone) Light Yellow [facility] G6PD (RBC) [Catalytic activity/Vol] Negative Negative [facility] Hemoglobin.gastrointest inal (Stl) [Mass/Mass] Negative Negative [facility] Leukocyte esterase Test strip Ql (U) Negative Negative [facility] Nitrite Test strip (U) [Mass/Vol] Negative Negative [facility] pH (Gillian fld) 7.0 [facility] Protein (U) [Mass/Vol] Negative Negative [facility] Specific gravity (U) [Rel density] 1.010 [facility] Urobilinogen Qn (U) <2.0 NINF - 2.0 [facility] Vitamin D 25 OHon 09-01-2021 Vitamin D 25 OH 19.3 ng/mL Low >29.9 [facility] Comment on above: Result Comment: Reference Range: Vitamin D status Range Deficiency <20 ng/mL Mild Deficiency 20-30 ng/mL Sufficiency 30-100 ng/mL Toxicity >100 ng/mL [facility] [address] [place] [address] Basic Metabolic Panelon Anion gap [Moles/Vol] 8 mmol/L Low 9-15 [facility] Comment on above: Performed By: #### B MP #### [facility] [address] [place] [address] Calcium [Mass/Vol] 9.0 mg/dL Normal 8.5-9.9 [facility] Comment on above: Performed By: #### B MP #### [facility] [address] [place] [address] Chloride [Moles/Vol] 104 mmol/L Normal 95-107 [facility] Comment on above: Performed By: #### B MP #### [facility] [address] [place] [address] CO2 [Moles/Vol] 25 mmol/L Normal 20-31 [facility] Comment on above: Performed By: #### B MP #### [facility] [address] [place] [address] Creatinine [Mass/Vol] 0.59 mg/dL Normal 0.50-0.90 [facility] Comment on above: Performed By: #### B MP #### [facility] [address] [place] [address] GFR >60.0 Normal >60 [facility] Comment on above: Result Comment: >60 mL/min/1.73m2 EGFR, calc. for ages 18 and older using the MDRD formula (not corrected for weight), is valid for stable renal function. Performed By: #### B MP #### [facility] [address] [place] [address] GFR/1.73 sq M.predicted among blacks MDRD (S/P/Bld) [Vol rate/Area] mL/min/{1.73_m2} Normal >60 [facility] Comment on above: Result Comment: >60 mL/min/1.73m2 EGFR, calc. for ages 18 and older using the MDRD formula (not corrected for weight), is valid for stable renal function. Performed By: #### B MP #### [facility] [address] [place] [address] Glucose [Mass/Vol] 88 mg/dL Normal 70-99 [facility] Comment on above: Performed By: #### B MP #### [facility] [address] [place] [address] Potassium [Moles/Vol] 4.1 mmol/L Normal 3.4-4.9 [facility] Comment on above: Performed By: #### B MP #### [facility] [address] [place] [address] Sodium [Moles/Vol] 137 mmol/L Normal 135-144 [facility] Comment on above: Performed By: #### B MP #### [facility] [address] [place] [address] Urea nitrogen [Mass/Vol] 14 mg/dL Normal 6-20 [facility] Comment on above: Performed By: #### B MP #### [facility] [address] [place] [address] CBC With Platelet No Differe ntialon 08-31-2021 Erythrocyte distribution width (RBC) [Ratio] 19.2 % Critically high 11.5-14.5 [facility] Comment on above: Performed By: #### C BCND #### [facility] [address] [place] [address] Hematocrit (Bld) [Volume fraction] 33.4 % Low 37.0-47.0 [facility] Comment on above: Performed By: #### C BCND #### [facility] [address] [place] [address] Hemoglobin (Bld) [Mass/Vol] 10.7 g/dL Low 12.0-16.0 [facility] Comment on above: Performed By: #### C BCND #### [facility] [address] [place] [address] MCH (RBC) [Entitic mass] 28.8 pg Normal 27.0-31.3 [facility] Comment on above: Performed By: #### C BCND #### [facility] [address] [place] [address] MCHC 32.2 % Low 33.0-37.0 [facility] Comment on above: Performed By: #### C BCND #### [facility] [address] [place] [address] MCV (RBC) [Entitic vol] 89.5 fL Normal 82.0-100.0 [facility] Comment on above: Performed By: #### C BCND #### [facility] [address] [place] [address] Platelets (Bld) [#/Vol] 264 10*3/uL Normal 130-400 [facility] Comment on above: Performed By: #### C BCND #### [facility] [address] [place] [address] RBC (Bld) [#/Vol] 3.73 10*6/uL Low 4.20-5.40 [facility] Comment on above: Performed By: #### C BCND #### [facility] [address] [place] [address] WBC (Bld) [#/Vol] 4.9 10*3/uL Normal 4.8-10.8 [facility] Comment on above: Performed By: #### C BCND #### [facility] [address] [place] [address] Lipid Panelon 08-31-2021 Cholesterol [Mass/Vol] 219 mg/dL Critically high 0-199 [facility] Comment on above: Result Comment: ATP III Cholesterol Classification is Borderline High. Performed By: #### L IPID #### [facility] [address] [place] [address] Cholesterol in HDL [Mass/Vol] 69 mg/dL Critically high 40-59 [facility] Comment on above: Result Comment: ATP [...] CHD Performed By: #### L IPID #### [facility] [address] [place] [address] Cholesterol in LDL [Mass/Vol] 132 mg/dL Critically high 0-129 [facility] Comment on above: Result Comment: ATT III Classification is Borderline High. Performed By: #### L IPID #### [facility] [address] [place] [address] Triglyceride [Mass/Vol] 92 mg/dL Normal 0-150 [facility] Comment on above: Result Comment: ATP III Triglycerides Classification is Normal. Performed By: #### L IPID #### [facility] [address] [place] [address] Oran Levelon 08-31-2021 Oran [Moles/Vol] 0.6 mmol/L Normal 0.6-1.2 [facility] Comment on above: Performed By: #### L ITH #### [facility] [address] [place] [address] TSH w/out Reflexon TSH w/out Reflex 2.710 uIU/mL Normal 0.440-3.86 [facility] Comment on above: Performed By: #### T SH #### [facility] [address] [place] [address] CBC with Diffon 08-26-2021 Abs. Basophil 0.07 k/uL Normal 0.00-0.20 [facility] Comment on above: Performed By: #### U HCG, UAX, UMICAO #### [facility] [address] [place] [address] Chain Carrier: Tami Villanueva MD Abs.Imm.Granulocyte <0.03 Normal 0.00-0.30 [facility] Comment on above: Performed By: #### U HCG, UAX, UMICAO #### [facility] [address] [place] [address] Chain Carrier: Tami Villanueva MD Abs.Neutrophil (Seg) 4.50 k/uL Normal 1.50-8.10 [facility] Comment on above: Performed By: #### U HCG, UAX, UMICAO #### [facility] [address] [place], [place] [id number] Chain Carrier: Tami Villanueva MD Basophils/100 WBC (Bld) 1 % Normal 0-2 [facility] Comment on above: Performed By: #### U HCG, UAX, UMICAO #### [facility] [address] [place] [address] Dr[address] [place], [place] [address] Chain Carrier: Tami Villanueva MD Eosinophils (Bld) [#/Vol] 0.14 10*3/uL Normal 0.00-0.44 [facility] Comment on above: Performed By: #### U HCG, UAX, UMICAO #### [address] [place], [facility] Chain Carrier: Tami Villanueva MD Eosinophils/100 WBC (Bld) 2 % Normal 1-4 [facility] Comment on above: Performed By: #### U HCG, UAX, UMICAO #### [address] [place], [facility] Chain Carrier: Tami Villanueva MD Erythrocyte distribution width (RBC) [Ratio] 18.1 % High 11.8-14.4 [facility] Comment on above: Performed By: #### U HCG, UAX, UMICAO #### [address] [place]endez, [facility] Chain Carrier: Tami Villanueva MD Hematocrit (Bld) [Volume fraction] 36.8 % Normal 36.3-47.1 [facility] Comment on above: Performed By: #### U HCG, UAX, UMICAO #### [address] [place] [address] Chain Carrier: Tami Villanueva MD Hemoglobin (Bld) [Mass/Vol] 11.8 g/dL Low 11.9-15.1 [facility] Comment on above: Performed By: #### U HCG, UAX, UMICAO #### [facility] [address], [facility] Chain Carrier: Tami Villanueva MD Immature granulocytes/100 WBC (Bld) 0 % Normal 0 [facility] Comment on above: Performed By: #### U HCG, UAX, UMICAO #### [facility] [address], [facility] Chain Carrier: Tami Villanueva MD Lymphocytes (Bld) [#/Vol] 1.40 10*3/uL Normal 1.10-3.70 [facility] Comment on above: Performed By: #### U HCG, UAX, UMICAO #### [facility] [address], [place] [address] Chain Carrier: Tami Villanueva MD Lymphocytes/100 WBC (Bld) 22 % Low 24-43 [facility] Comment on above: Performed By: #### U HCG, UAX, UMICAO #### [facility] [address] [place], [facility] Chain Carrier: Tami Villanueva MD MCH (RBC) [Entitic mass] 28.4 pg Normal 25.2-33.5 [facility] Comment on above: Performed By: #### U HCG, UAX, UMICAO #### [facility] [address] [place], [facility]83 Chain Carrier: Tami Villanueva MD MCHC (RBC) [Mass/Vol] 32.1 g/dL Normal 28.4-34.8 [facility] Comment on above: Performed By: #### U HCG, UAX, UMICAO #### [facility] [address] [place] [address] Chain Carrier: Tami Villanueva MD MCV (RBC) [Entitic vol] 88.7 fL Normal 82.6-102.9 M [facility] Comment on above: Performed By: #### U HCG, UAX, UMICAO #### [facility] [address] [place], [place] [id number] Chain Carrier: Tami Villanueva MD Monocytes (Bld) [#/Vol] 0.29 10*3/uL Normal 0.10-1.20 [facility] Comment on above: Performed By: #### U HCG, UAX, UMICAO #### [facility] [address] [place], [place] 8629183 Chain Carrier: Tami Villanueva MD Monocytes/100 WBC (Bld) 5 % Normal 3-12 M [facility] Comment on above: Performed By: #### U HCG, UAX, UMICAO #### [facility] [address] [place], [place] 6211483 Chain Carrier: Tami Villanueva MD Neutrophil (Seg) 70 % High 36-65 [facility] Comment on above: Performed By: #### U HCG, UAX, UMICAO #### [facility] [address] [place], [place] 4379283 Chain Carrier: Tami Villanueva MD NRBC Automated 0.0 per 100 WBC Normal 0.0 [facility] Comment on above: Performed By: #### U HCG, UAX, UMICAO #### [facility] [address] [place], [place] 5946383 Chain Carrier: Tami Villanueva MD Platelet mean volume (Bld) [Entitic vol] 10.1 fL Normal 8.1-13.5 [facility] Comment on above: Performed By: #### U HCG, UAX, UMICAO #### [facility] [address] [place] [address] Chain Carrier: aTmi Villanueva MD Platelets (Bld) [#/Vol] 366 10*3/uL Normal 138-453 [facility] Comment on above: Performed By: #### U HCG, UAX, UMICAO #### [facility] [address] [place] [address] Chain Carrier: Tami Villanueva MD RBC (Bld) [#/Vol] 4.15 10*6/uL Normal 3.95-5.11 [facility] Comment on above: Performed By: #### U HCG, UAX, UMICAO #### [facility] [address] [place] [address] Chain Carrier: Tami Villanueva MD WBC (Bld) [#/Vol] 6.4 10*3/uL Normal 3.5-11.3 [facility] Comment on above: Performed By: #### U HCG, UAX, UMICAO #### [facility] [address] [place] [address] Chain Carrier: Tami Villanueva MD Comp Metabolic Profon 2021 (cont.) Normal [facility] Comment on above: Result Comment: Aver age GFR for 30-39 years old: 107 mL/min/1.73sq m Chronic Kidney Disease: <60 mL/min/1.73sq m Kidney failure: <15 mL/min/1.73sq m eGFR calculated using average adult body mass. Additional eGFR calculator available at: http://www.Lifeenergy.Intelliworks/multiple_crcl_2012.htm Performed By: #### U HCG, UAX, UMICAO #### [address] [place] [address] Chain Carrier: Tami Villanueva MD Albumin [Mass/Vol] 4.5 g/dL Normal 3.5-5.2 [facility] Comment on above: Performed By: #### U HCG, UAX, UMICAO #### [facility] [address] [place] [address] Chain Carrier: Tami Villanueva MD Albumin/Glob Ratio 1.7 Normal 1.0-2.5 [facility] Comment on above: Performed By: #### U HCG, UAX, UMICAO #### [facility] [address] [place], [place] 9509683 Chain Carrier: Tami Villanueva MD Alkaline Phos 57 U/L Normal 35-104 [facility] Comment on above: Performed By: #### U HCG, UAX, UMICAO #### [facility] [address] [place], [place] 137[address]83 Chain Carrier: Tami Villanueva MD ALT [Catalytic activity/Vol] 31 U/L Normal 5-33 [facility] Comment on above: Performed By: #### U HCG, UAX, UMICAO #### [facility] [address] [place], [place] 40[address]83 Chain Carrier: Tami Villanueva MD Anion gap [Moles/Vol] 10 mmol/L Normal 9-17 [facility] Comment on above: Performed By: #### U HCG, UAX, UMICAO #### [facility] [address] [place], [place] 9415583 Chain Carrier: Tami Villanueva MD AST [Catalytic activity/Vol] 22 U/L Normal <32 [facility] Comment on above: Performed By: #### U HCG, UAX, UMICAO #### [facility] [address] [place], [place] 4521783 Chain Carrier: Tami Villanueva MD Bilirubin [Mass/Vol] 0.16 mg/dL Low 0.3-1.2 [facility] Comment on above: Performed By: #### U HCG, UAX, UMICAO #### [facility] [address] [place] [address] Chain Carrier: Tami Villanueva MD BUN/CRE Ratio 31 High 9-20 [facility] Comment on above: Performed By: #### U HCG, UAX, UMICAO #### [facility] [address] [place], [place] [id number] Chain Carrier: Tami Villanueva MD Calcium [Mass/Vol] 9.6 mg/dL Normal 8.6-10.4 [facility] Comment on above: Performed By: #### U HCG, UAX, UMICAO #### [facility] [address] [place], [place] [address]885983 Chain Carrier: Tami Villanueva MD Chloride [Moles/Vol] 103 mmol/L Normal 98-107 [facility] Comment on above: Performed By: #### U HCG, UAX, UMICAO #### [facility] [address] [place], [place] 4003883 Chain Carrier: Tami Villanueva MD CO2 [Moles/Vol] 26 mmol/L Normal 20-31 [facility] Comment on above: Performed By: #### U HCG, UAX, UMICAO #### [facility] [address] [place], [place] 4936783 Chain Carrier: Tami Villanueva MD Creatinine [Mass/Vol] 0.58 mg/dL Normal 0.50-0.90 [facility] Comment on above: Performed By: #### U HCG, UAX, UMICAO #### [facility] [address] [place], [place] 3321783 Chain Carrier: Tami Villanueva MD GFR, Amer >60 Normal >60 [facility] Comment on above: Performed By: #### U HCG, UAX, UMICAO #### [facility] [address] [place], [place] 0540983 Chain Carrier: Tami Villanueva MD GFR,non Amer >60 Normal >60 [facility] Comment on above: Performed By: #### U HCG, UAX, UMICAO #### [facility] [address] [place], [place] 0799783 Chain Carrier: Tami Villanueva MD Glucose [Mass/Vol] 96 mg/dL Normal 70-99 [facility] Comment on above: Performed By: #### U HCG, UAX, UMICAO #### [facility] [address] [place] [address] Chain Carrier: Tami Villanueva MD Potassium [Moles/Vol] 3.2 mmol/L Low 3.7-5.3 [facility] Comment on above: Performed By: #### U HCG, UAX, UMICAO #### [facility] [address] [place] [address] Chain Carrier: Tami Villanueva MD Protein [Mass/Vol] 7.2 g/dL Normal 6.4-8.3 [facility] Comment on above: Performed By: #### U HCG, UAX, UMICAO #### [address] [place] [address] Chain Carrier: Tami Villanueva MD Sodium [Moles/Vol] 139 mmol/L Normal 135-144 [facility] Comment on above: Performed By: #### U HCG, UAX, UMICAO #### [address] [place] [address] Chain Carrier: Tami Villanueva MD Staging: Normal [facility] Comment on above: Result Comment: Stag e 1: Some kidney damage normal GFR Stage 2: Mild kidney damage GFR 60-89 Stage 3: Moderate kidney damage GFR 30-59 Stage 4: Severe kidney damage GFR 15-29 Stage 5: Severe kidney damage GFR <15 ESRD - chronic treatment by dialysis or transplant Performed By: #### U HCG, UAX, UMICAO #### [facility] [address] [place] [address] Chain Carrier: Tami Villanueva MD Urea nitrogen [Mass/Vol] 18 mg/dL Normal 6-20 [facility] Comment on above: Performed By: #### U HCG, UAX, UMICAO #### [facility] [address] [place], [place] 7543683 Chain Carrier: Tami Villanueva MD Drug Scr, Abuse, Uron 2021 Amphetamine(s),Ur Negative Normal NEG [facility] Comment on above: Performed By: #### U HCG, UAX, UMICAO #### [facility] [address] [place], [place] 4047583 Chain Carrier: Tami Villanueva MD Barbiturate(s),Ur Negative Normal [facility] Comment on above: Performed By: #### U HCG, UAX, UMICAO #### [facility] [address] [place], [place] 2365183 Chain Carrier: Tami Villanueva MD Benzodiazepine(s) Negative Normal [facility] Comment on above: Performed By: #### U HCG, UAX, UMICAO #### [facility] [address] [place] [address] [place] [address] Chain Carrier: Tami Villanueva MD Buprenorphrine, Ur Negative Normal [facility] Comment on above: Performed By: #### U HCG, UAX, UMICAO #### [facility] [address] [place], [place] 1832583 Chain Carrier: Tami Villanueva MD Cannabinoid(s),Ur Positive Abnormal NEG [facility] Comment on above: Performed By: #### U HCG, UAX, UMICAO #### [facility] [address] [place] [address] Chain Carrier: Tami Villanueva MD Cocaine Metabolite Negative Normal [facility] Comment on above: Performed By: #### U HCG, UAX, UMICAO #### [facility] [address] [place], [place] [id number] Chain Carrier: Tami Villanueva MD Methadone Ql (U) Negative Normal NEG [facility] Comment on above: Performed By: #### U HCG, UAX, UMICAO #### [facility] [address] [place], [place] 5002483 Chain Carrier: Tami Villanueva MD Methamphetamine, Ur Negative Normal NEG [facility] Comment on above: Performed By: #### U HCG, UAX, UMICAO #### [facility] [address] [place], [place] 5529883 Chain Carrier: Tami Villanueva MD Opiate(s), Ur Negative Normal NEG [facility] Comment on above: Performed By: #### U HCG, UAX, UMICAO #### [facility] [address] [place], [place] 9477683 Chain Carrier: Tami Villanueva MD Oxycodone, Urine Negative Normal NEG [facility] Comment on above: Performed By: #### U HCG, UAX, UMICAO #### [facility] [address] [place], [place] 8804383 Chain Carrier: Tami Villanueva MD Phencyclidine, Ur Negative Normal NEG [facility] Comment on above: Performed By: #### U HCG, UAX, UMICAO #### [facility] [address] [place], [place] 8722683 Chain Carrier: Tami Villanueva MD Propoxyphene,Urine Negative Normal [facility] Comment on above: Performed By: #### U HCG, UAX, UMICAO #### [facility] [address] [place], [place] 6508083 Chain Carrier: Tami Villanueva MD Tricyclic antidepressants Screen Ql (U) Negative Normal [facility] Comment on above: Result Comment: Drug screen results are to be used for medical purposes only. All positive results are unconfirmed. Testing for employment or legal uses should be sent to a reference laboratory for confirmation. Performed By: #### U HCG, UAX, UMICAO #### [facility] [address] [place] [address] Chain Carrier: Tami Villanueva MD Ethanol Alcoholon 08-26-2021 Ethanol [Mass/Vol] mg/dL Normal <10 [facility] Comment on above: Performed By: #### A LCB #### [facility] [address] [place] [address] Chain Carrier: Tami Villanueva MD Ethanol percent <0.010 Normal <0.010 [facility] Comment on above: Performed By: #### A LCB #### [facility] [address] [place] [address] Chain Carrier: Tami Villanueva MD HCG Screen, Bloodon 08-27-19 HCG Screen, Blood Negative Normal NEG [facility] Comment on above: Result Comment: Spec imens with hCG levels near the threshold of the test (25 mIU/mL) may give a negative or indeterminate result. In such cases, another test should be performed with a new specimen in 48-72 hours. If early is suspected clinically in this setting, correlation with quantitative serum b-hCG level is suggested. [facility] has confirmed the use of plasma for this test. This has not been cleared or approved by the U.[place]. Food and Drug Administration. The FDA has determined that such clearance is not necessary. Performed By: #### U HCG, UAX, UMICAO #### [facility] [address] [place] [address] [place] [address] Chain Carrier: Tami Villanueva MD [id number] 08-26-2021 SARS-CoV-2 (COVID-19) RNA AMARA+probe Ql (Unsp spec) Not detected Normal NOTDET [facility] Comment on above: Result Comment: Rapid NAAT: [...] management decisions. Fact sheet for Healthcare Providers: https://www.fda.gov/media/230291/download Fact sheet for Patients: https://www.fda.gov/media/341622/download Methodology: Isothermal Nucleic Acid Amplification Performed By: #### U HCG, UAX, UMICAO #### [facility] [address] [place] [address] [place] [address] Chain Carrier: Tami Villanueva MD UA w/Reflex Cultureon 2021 Bilirubin, SemiQt,Ur Negative Normal NEG [facility] Comment on above: Performed By: #### U HCG, UAX, UMICAO #### [facility] [address] [place] [address] Dr[address] [place], [facility] Chain Carrier: Tami Villanueva MD Blood, Urine Negative Normal NEG [facility] Comment on above: Performed By: #### U HCG, UAX, UMICAO #### [address] [place], [place] 5432483 Chain Carrier: Tami Villanueva MD Clarity (U) Clear Normal CLEAR [facility] Comment on above: Performed By: #### U HCG, UAX, UMICAO #### [facility] [address] [place] [address] [address] [place], [place] [phone] Chain Carrier: Tami Villanueva MD Color (U) Yellow Normal YEL [facility] Comment on above: Performed By: #### U HCG, UAX, UMICAO #### [facility] [address] [place] [address] [place] [address] Chain Carrier: Tami Villanueva MD Glucose Ql (U) Negative Normal NEG [facility] Comment on above: Performed By: #### U HCG, UAX, UMICAO #### [facility] [address] [place], [place] 8464983 Chain Carrier: Tami Villanueva MD Ketones Ql (U) Negative Normal NEG [facility] Comment on above: Performed By: #### U HCG, UAX, UMICAO #### [facility] [address] [place] [address] [place] [address] Chain Carrier: Tami Villanueva MD Leukocyte esterase Test strip Ql (U) TRACE Abnormal NEG [facility] Comment on above: Performed By: #### U HCG, UAX, UMICAO #### [address] [place], [place] 7500383 Chain Carrier: Tami Villanueva MD Nitrite,Ur Negative Normal NEG [facility] Comment on above: Performed By: #### U HCG, UAX, UMICAO #### [facility] [address] [place] [address] [address] [place], [place] 3743283 Chain Carrier: Tami Villanueva MD PH,Ur 6.0 Normal 5.0-9.0 [facility] Comment on above: Performed By: #### U HCG, UAX, UMICAO #### [facility] [address] [place] [address] [address] [place], [place] 0379483 Chain Carrier: Tami Villanueva MD Protein Ql (U) Negative Normal NEG [facility] Comment on above: Performed By: #### U HCG, UAX, UMICAO #### [facility] [address] [place], [place] 0413183 Chain Carrier: Tami Villanueva MD Spec. Mcfall,Ur 1.015 Normal 1.010-1.020 [facility] Comment on above: Performed By: #### U HCG, UAX, UMICAO #### [facility] [address] [place] [address] [place] [place], [place] 3806983 Chain Carrier: Tami Villanueva MD Urobilinogen,Ur Normal Normal NORM [facility] Comment on above: Performed By: #### U HCG, UAX, UMICAO #### [facility] [address] [place] [address] Chain Carrier: Tami Villanueva MD Urinalysis,Microon 2 ----- Normal [facility] Comment on above: Performed By: #### U HCG, UAX, UMICAO #### [facility] [address] [place] [address] Chain Carrier: Tami Villanueva MD Epithelial cells LM Ql (Urine sed) 0 TO 2 Normal 0-25 [facility] Comment on above: Performed By: #### U HCG, UAX, UMICAO #### [facility] [address] [place] [address] Chain Carrier: Tami Villanueva MD Urine RBC's 0 TO 2 Normal 0-2 [facility] Comment on above: Performed By: #### U HCG, UAX, UMICAO #### [facility] [address] [place] [address] Chain Carrier: Tami Villanueva MD Urine WBC's 2 TO 5 Normal 0-5 [facility] Comment on above: Performed By: #### U HCG, UAX, UMICAO #### [facility] [address] [place], [place] 0714583 Chain Carrier: Tami Villanueva MD CBCon 08-16-2021 Erythrocyte distribution width (RBC) [Ratio] 17.7 % High 11.8-14.4 [facility] Comment on above: Performed By: #### U HCG, UAX, UMICAO #### [facility] [address] [place] [address] Chain Carrier: Tami Villanueva MD Hematocrit (Bld) [Volume fraction] 37.7 % Normal 36.3-47.1 [facility] Comment on above: Performed By: #### U HCG, UAX, UMICAO #### [facility] [address] [place], [place] 7217583 Chain Carrier: Tami Villanueva MD Hemoglobin (Bld) [Mass/Vol] 11.8 g/dL Low 11.9-15.1 [facility] Comment on above: Performed By: #### U HCG, UAX, UMICAO #### [facility] [address] [place], [place] 9994283 Chain Carrier: Tami Villanueva MD MCH (RBC) [Entitic mass] 28.5 pg Normal 25.2-33.5 [facility] Comment on above: Performed By: #### U HCG, UAX, UMICAO #### [address] [place] [address] Chain Carrier: Tami Villanueva MD MCHC (RBC) [Mass/Vol] 31.3 g/dL Normal 28.4-34.8 [facility] Comment on above: Performed By: #### U HCG, UAX, UMICAO #### [address] [place], [place] 9139683 Chain Carrier: Tami Villanueva MD MCV (RBC) [Entitic vol] 91.1 fL Normal 82.6-102.9 [facility] Comment on above: Performed By: #### U HCG, UAX, UMICAO #### [facility] [address] [place] [address] [place] [address] Chain Carrier: Tami Villanueva MD NRBC Automated 0.0 per 100 WBC Normal 0.0 [facility] Comment on above: Performed By: #### U HCG, UAX, UMICAO #### [facility] [address] [place] [address] Chain Carrier: Tami Villanueva MD Platelet mean volume (Bld) [Entitic vol] 10.6 fL Normal 8.1-13.5 [facility] Comment on above: Performed By: #### U HCG, UAX, UMICAO #### [facility] [address] [place], [place] 6662883 Chain Carrier: Tami Villanueva MD Platelets (Bld) [#/Vol] 262 10*3/uL Normal 138-453 [facility] Comment on above: Performed By: #### U HCG, UAX, UMICAO #### [facility] [address] [place], [place] 5404483 Chain Carrier: Tami Villanueva MD RBC (Bld) [#/Vol] 4.14 10*6/uL Normal 3.95-5.11 [facility] Comment on above: Performed By: #### U HCG, UAX, UMICAO #### [facility] [address] [place], [place] 4773883 Chain Carrier: Tami Villanueva MD WBC (Bld) [#/Vol] 5.7 10*3/uL Normal 3.5-11.3 [facility] Comment on above: Performed By: #### U HCG, UAX, UMICAO #### [facility] [address] [place], [place] 7714983 Chain Carrier: Tami Villanueva MD Hematocrit (Bld) [Volume fraction] 37.7 % 36.3 - 47.1 % [facility] Hemoglobin.gastrointest inal spec 1 Ql (Stl) 11.8 g/dL Low [...] [facility] WBC (Bld) [#/Vol] 5.7 10*3/uL [facility] Comp Metabolic Profon 2021 (cont.) Normal [facility] Comment on above: Result Comment: Aver age GFR for 30-39 years old: 107 mL/min/1.73sq m Chronic Kidney Disease: <60 mL/min/1.73sq m Kidney failure: <15 mL/min/1.73sq m eGFR calculated using average adult body mass. Additional eGFR calculator available at: http://www.Knottykart/multiple_crcl_2011.htm Performed By: #### U HCG, UAX, UMICAO #### [facility] [address] [place] [address] Chain Carrier: Tami Villanueva MD Albumin [Mass/Vol] 3.7 g/dL Normal 3.5-5.2 [facility] Comment on above: Performed By: #### U HCG, UAX, UMICAO #### [facility] [address] [place] [address] Chain Carrier: Tami Villanueva MD Albumin/Glob Ratio 1.4 Normal 1.0-2.5 [facility] Comment on above: Performed By: #### U HCG, UAX, UMICAO #### [facility] [address] [place] [address] Chain Carrier: Tami Villanueva MD Alkaline Phos 46 U/L Normal 35-104 [facility] Comment on above: Performed By: #### U HCG, UAX, UMICAO #### [facility] [address] [place], [place] 0786483 Chain Carrier: Tami Villanueva MD ALT [Catalytic activity/Vol] 12 U/L Normal 5-33 [facility] Comment on above: Performed By: #### U HCG, UAX, UMICAO #### [facility] [address] [place], [place] 8552083 Chain Carrier: Tami Villanueva MD Anion gap [Moles/Vol] 10 mmol/L Normal 9-17 [facility] Comment on above: Performed By: #### U HCG, UAX, UMICAO #### [facility] [address] [place], [place] 5510883 Chain Carrier: Tami Villanueva MD AST [Catalytic activity/Vol] 13 U/L Normal <32 [facility] Comment on above: Performed By: #### U HCG, UAX, UMICAO #### [facility] [address] [place], [place] 6375383 Chain Carrier: Tami Villanueva MD Bilirubin [Mass/Vol] mg/dL Low 0.3-1.2 [facility] Comment on above: Performed By: #### U HCG, UAX, UMICAO #### [facility] [address] [place], [place] 9269683 Chain Carrier: Tami Villanueva MD BUN/CRE Ratio 25 High 9-20 [facility] Comment on above: Performed By: #### U HCG, UAX, UMICAO #### [facility] [address] [place], [place] 8003483 Chain Carrier: Tami Villanueva MD Calcium [Mass/Vol] 8.9 mg/dL Normal 8.6-10.4 [facility] Comment on above: Performed By: #### U HCG, UAX, UMICAO #### [facility] [address] [place], [place] 957[address]83 Chain Carrier: Tami Villanueva MD Chloride [Moles/Vol] 105 mmol/L Normal 98-107 [facility] Comment on above: Performed By: #### U HCG, UAX, UMICAO #### [facility] [address] [place], [place] 2569683 Chain Carrier: Tami Villanueva MD CO2 [Moles/Vol] 23 mmol/L Normal 20-31 [facility] Comment on above: Performed By: #### U HCG, UAX, UMICAO #### [facility] [address] [place], [place] 7163683 Chain Carrier: Tami Villanueva MD Creatinine [Mass/Vol] 0.60 mg/dL Normal 0.50-0.90 [facility] Comment on above: Performed By: #### U HCG, UAX, UMICAO #### [facility] [address] [place], [place] 078[address]83 Chain Carrier: Tami Villanueva MD GFR, Amer >60 Normal >60 [facility] Comment on above: Performed By: #### U HCG, UAX, UMICAO #### [facility] [address] [place], [place] 2621883 Chain Carrier: Tami Villanueva MD GFR,non Amer >60 Normal >60 [facility] Comment on above: Performed By: #### U HCG, UAX, UMICAO #### [facility] [address] [place], [place] 4588983 Chain Carrier: Tami Villanueva MD Glucose [Mass/Vol] 93 mg/dL Normal 70-99 [facility] Comment on above: Performed By: #### U HCG, UAX, UMICAO #### [facility] [address] [place], [place] 0567583 Chain Carrier: Tami Villanueva MD Potassium [Moles/Vol] 3.9 mmol/L Normal 3.7-5.3 [facility] Comment on above: Performed By: #### U HCG, UAX, UMICAO #### [facility] [address] [place] [address] Chain Carrier: Tami Villanueva MD Protein [Mass/Vol] 6.3 g/dL Low 6.4-8.3 [facility] Comment on above: Performed By: #### U HCG, UAX, UMICAO #### [facility] [address] [place] [address] Chain Carrier: Tami Villanueva MD Sodium [Moles/Vol] 138 mmol/L Normal 135-144 [facility] Comment on above: Performed By: #### U HCG, UAX, UMICAO #### [facility] [address] [place] [address] [place] [address] Chain Carrier: Tami Villanueva MD Staging: Normal [facility] Comment on above: Result Comment: Stag e 1: Some kidney damage normal GFR Stage 2: Mild kidney damage GFR 60-89 Stage 3: Moderate kidney damage GFR 30-59 Stage 4: Severe kidney damage GFR 15-29 Stage 5: Severe kidney damage GFR <15 ESRD - chronic treatment by dialysis or transplant Performed By: #### U HCG, UAX, UMICAO #### [facility] [address] [place] [address] [place] [address] Chain Carrier: Tami Villanueva MD Urea nitrogen [Mass/Vol] 15 mg/dL Normal 6-20 [facility] Comment on above: Performed By: #### U HCG, UAX, UMICAO #### [facility] [address] [place] [address] Chain Carrier: Tami Villanueva MD Comprehensive Metabolic Pane [facility] 08-16-2021 Albumin [Mass/Vol] 3.7 g/dL 3.5 - [...] [facility] GFR >60 >60 mL/min [facility] GFR Non- >60 >60 mL/min [facility] Glucose [Mass/Vol] 93 mg/dL 70 - 99 mg/dL [facility] Interpretation and review of laboratory results Abnormal [facility] Potassium [Moles/Vol] 3.9 mmol/L 3.7 - 5.3 mmol/L [facility] Sodium [Moles/Vol] 138 mmol/L 135 - 144 mmol/L [facility] Urea nitrogen (BldV) [Mass/Vol] 15 mg/dL 6 - 20 mg/dL [facility] Urea nitrogen/Creatinine (Bld) [Mass ratio] 25 High [facility] HIV Ag/Abon 08-16-2021 HIV Ag/Ab Non-Reactive Normal NR [facility] Comment on above: Result Comment: No l aboratory evidence of HIV infection. If acute HIV infection is suspected, consider testing for HIV-1 RNA. Performed By: #### U HCG, UAX, UMICAO #### [facility] [address] [place] [address] Chain Carrier: Tami Villanueva MD HIV Screenon 08-16-2021 HIV Ag/Ab Non-Reactive NONREACTIVE [facility] Comment on above: No laboratory eviden ce of HIV infection. If acute HIV infection is suspected, consider testing for HIV-1 RNA. [facility] Hepatitis Acute [facility] 08-16 Hep A Ab,IgM Non-Reactive Normal NR [facility] Comment on above: Performed By: #### U HCG, UAX, UMICAO #### [facility] [address] [place] [address] [place] [place], [place] 8330583 Chain Carrier: Tami Villanueva MD Hep B Core Ab,IgM Non-Reactive Normal [facility] Comment on above: Performed By: #### U HCG, UAX, UMICAO #### [facility] [address] [place] [address] [place] [place], [place] 3256583 Chain Carrier: Tami Villanueva MD Hep B Surf Ag Non-Reactive Normal [facility] Comment on above: Performed By: #### U HCG, UAX, UMICAO #### [facility] [address] [place] [address] [place] [place], [place] 6061283 Chain Carrier: Tami Villanueva MD Hep C Ab Non-Reactive Normal [facility] Comment on above: Result Comment: The [...] By: #### U HCG, UAX, UMICAO #### [facility] [address] [place] [address] [place] [address] Chain Carrier: Tami Villanueva MD Hepatitis Panel, Acute HAV IgM IA Qn (S) Non-Reactive NONREACTIVE [facility] Hep B Core Ab, IgM Non-Reactive NONREACTIVE [facility] Hepatitis B Surface Ag Non-Reactive NONREACTIVE [facility] Hepatitis C Ab Non-Reactive NONREACTIVE [facility] Comment on above: The hepatitis C [...] recommended by ordering HCV RNA by PCR. [facility] - Chemistry and C hemistry - challengeon 08-16-2021 GFR/1.73 sq M.predicted MDRD (S/P/Bld) [Vol rate/Area] [facility] Comment on above: Average GFR for 30-3 9 years old: 107 mL/min/1.73sq m Chronic Kidney Disease: <60 mL/min/1.73sq m Kidney failure: <15 mL/min/1.73sq m eGFR calculated using average adult body mass. Additional eGFR calculator available at: http://www.Knottykart/multiple_crcl_2011.htm Stage 1: Some kidney damage normal GFR Stage 2: Mild kidney damage GFR 60-89 Stage 3: Moderate kidney damage GFR 30-59 Stage 4: Severe kidney damage GFR 15-29 Stage 5: Severe kidney damage GFR <15 ESRD - chronic treatment by dialysis or transplant Microscopic Urinalysison - [facility] Bacteria, UA 2+ Abnormal None [facility] [employer] Epithelial Cells UA 5 TO 10 [facility] Interpretation and review of laboratory results Abnormal [facility] RBC (U) [#/Vol] 100 /uL [facility] lth WBC, UA 5 TO 10 [facility] Urinalysison 08-16-2021 Bilirubin Urine INTERPRET WITH CAUTION DUE TO INTENSE COLOR OF URINE. Abnormal NEGATIVE [facility] [employer] Color, UA Red Abnormal Yellow [facility] Glucose, Ur INTERPRET WITH CAUTION DUE TO INTENSE COLOR OF URINE. Abnormal NEGATIVE [facility] Interpretation and review of laboratory results Abnormal [facility] Ketones Ql (U) INTERPRET WITH CAUTION DUE TO INTENSE COLOR OF URINE. Abnormal NEGATIVE [facility] Leukocyte esterase Test strip Ql (U) INTERPRET WITH CAUTION DUE TO INTENSE COLOR OF URINE. Abnormal NEGATIVE [facility] [employer] Nitrite, Urine INTERPRET WITH CAUTION DUE TO INTENSE COLOR OF URINE. Abnormal NEGATIVE [facility] [employer] pH, UA INTERPRET WITH CAUTION DUE TO INTENSE COLOR OF URINE. [employer] Protein, UA INTERPRET WITH CAUTION DUE TO INTENSE COLOR OF URINE. Abnormal NEGATIVE [facility] [employer] Specific Mcfall, UA 1.025 High [facility] Turbidity UA Turbid Abnormal Clear [facility] Urine Hgb INTERPRET WITH CAUTION DUE TO INTENSE COLOR OF URINE. Abnormal NEGATIVE [facility] Urobilinogen, Urine INTERPRET WITH CAUTION DUE TO INTENSE COLOR OF URINE. Abnormal Normal [facility] Urinalysis, Routineon 2021 Bilirubin, SemiQt,Ur INTERPRET WITH CAUTION DUE TO INTENSE COLOR OF URINE. Abnormal NEG [facility] Comment on above: Performed By: #### U HCG, UAX, UMICAO #### [facility] [address] [place], [place] [phone] Chain Carrier: Tami Villanueva MD Blood, Urine INTERPRET WITH CAUTION DUE TO INTENSE COLOR OF URINE. Abnormal NEG [facility] Comment on above: Performed By: #### U HCG, UAX, UMICAO #### [facility] [address] [place] [address] Dr. [place], [place] [id number] Chain Carrier: Tami Villanueva MD Clarity (U) Turbid Abnormal CLEAR [facility] Comment on above: Performed By: #### U HCG, UAX, UMICAO #### [facility] [address] [place] [address] [place] [address] Chain Carrier: Tami Villanueva MD Color (U) Red Abnormal YEL [facility] Comment on above: Performed By: #### U HCG, UAX, UMICAO #### [facility] [address] [place] [address] Dr. Mendez, [place] [id number] Chain Carrier: Tami Villanueva MD Glucose Ql (U) INTERPRET WITH CAUTION DUE TO INTENSE COLOR OF URINE. Abnormal NEG [facility] Comment on above: Performed By: #### U HCG, UAX, UMICAO #### [facility] [address] [place] [address] Dr. Mendez, [place] [id number] Chain Carrier: Tami Villanueva MD Ketones Ql (U) INTERPRET WITH CAUTION DUE TO INTENSE COLOR OF URINE. Abnormal NEG [facility] Comment on above: Performed By: #### U HCG, UAX, UMICAO #### [facility] [address] [place] [address] [place] [address] Chain Carrier: Tami Villanueva MD Leukocyte esterase Test strip Ql (U) INTERPRET WITH CAUTION DUE TO INTENSE COLOR OF URINE. Abnormal NEG [facility] Comment on above: Performed By: #### U HCG, UAX, UMICAO #### [facility] [address] [place] [address] [place] [address] Chain Carrier: Tami Villanueva MD Nitrite,Ur INTERPRET WITH CAUTION DUE TO INTENSE COLOR OF URINE. Abnormal NEG [facility] Comment on above: Performed By: #### U HCG, UAX, UMICAO #### [address] [place] [address] Chain Carrier: Tami Villanueva MD PH,Ur INTERPRET WITH CAUTION DUE TO INTENSE COLOR OF URINE. Normal 5.0-9.0 [facility] Comment on above: Performed By: #### U HCG, UAX, UMICAO #### [address] [place] [address] Chain Carrier: Tami Villanueva MD Protein Ql (U) INTERPRET WITH CAUTION DUE TO INTENSE COLOR OF URINE. Abnormal NEG [facility] Comment on above: Performed By: #### U HCG, UAX, UMICAO #### [address] [place] [id number] Chain Carrier: Tami Villanueva MD Spec. Mcfall,Ur 1.025 High 1.010-1.020 [facility] Comment on above: Performed By: #### U HCG, UAX, UMICAO #### [address] [place], [place] [id number] Chain Carrier: Tami Villanueva MD Urobilinogen,Ur INTERPRET WITH CAUTION DUE TO INTENSE COLOR OF URINE. Abnormal NORM [facility] Comment on above: Performed By: #### U HCG, UAX, UMICAO #### [facility] [address] [place] [address] [place] [address] Chain Carrier: Tami Villanueva MD Urinalysis,Microon 2 ----- Normal [facility] Comment on above: Performed By: #### U HCG, UAX, UMICAO #### [facility] [address] [place] [address] Chain Carrier: Tami Villanueva MD Bacteria 2+ Abnormal NONE [facility] Comment on above: Performed By: #### U HCG, UAX, UMICAO #### [facility] [address] [place] [address] Chain Carrier: Tami Villanueva MD Epithelial cells LM Ql (Urine sed) 5 TO 10 Normal 0-25 [facility] Comment on above: Performed By: #### U HCG, UAX, UMICAO #### [facility] [address] [place] [address] Chain Carrier: Tami Villanueva MD Urine RBC's GREATER THAN 100 Normal 0-2 [facility] Comment on above: Performed By: #### U HCG, UAX, UMICAO #### [facility] [address] [place] [address] [place] [address] Chain Carrier: Tami Villanueva MD Urine WBC's 5 TO 10 Normal 0-5 [facility] Comment on above: Performed By: #### U HCG, UAX, UMICAO #### [facility] [address] [place] [address] Chain Carrier: Tami Villanueva MD Basic Metabolic Profon 08-10 (cont.) Normal [facility] Comment on above: Result Comment: Aver age GFR for 30-39 years old: 107 mL/min/1.73sq m Chronic Kidney Disease: <60 mL/min/1.73sq m Kidney failure: <15 mL/min/1.73sq m eGFR calculated using average adult body mass. Additional eGFR calculator available at: http://www.Lifeenergy.com/multiple_crcl_2011.htm Performed By: #### B MP #### [facility] [address] [place] [address] Chain Carrier: Bib Morin DO Anion gap [Moles/Vol] 11 mmol/L Normal 9-17 [facility] Comment on above: Performed By: #### B MP #### [facility] [place] [address] Chain Carrier: Bib Morin DO Calcium [Mass/Vol] 9.3 mg/dL Normal 8.6-10.[address] [facility] Comment on above: Performed By: #### B MP #### [facility] [place] [address] Chain Carrier: Bib Morin DO Chloride [Moles/Vol] 103 mmol/L Normal 98-107 [facility] Comment on above: Performed By: #### B MP #### [facility] [place] [address] Chain Carrier: Bib Morin DO CO2 [Moles/Vol] 23 mmol/L Normal 20-[address] [facility] Comment on above: Performed By: #### B MP #### [facility] [place] [address] Chain Carrier: Bib Morin DO Creatinine [Mass/Vol] 0.64 mg/dL Normal 0.50-0.90 [facility] Comment on above: Performed By: #### B MP #### [facility] [place] [address] Chain Carrier: Bib Morin DO GFR, Amer >60 Normal >60 [facility] Comment on above: Performed By: #### B MP #### [facility] [place] [address] Chain Carrier: Bib Morin DO GFR,non Amer >60 Normal >60 [facility] Comment on above: Performed By: #### B MP #### [facility] [address] [place] [address] Chain Carrier: Bib Morin DO Glucose [Mass/Vol] 140 mg/dL High 70-[address] [facility] Comment on above: Performed By: #### B MP #### [facility] [address] [place] [address] Chain Carrier: Bib Morin DO Potassium [Moles/Vol] 4.3 mmol/L Normal 3.7-5.3 [facility] Comment on above: Performed By: #### B MP #### [facility] [place] [address] Chain Carrier: Bib Morin DO Sodium [Moles/Vol] 137 mmol/L Normal 135-[address] [facility] Comment on above: Performed By: #### B MP #### [facility] [place] [address] Chain Carrier: Bib Morin DO Urea nitrogen [Mass/Vol] 10 mg/dL Normal 6-[address] [facility] Comment on above: Performed By: #### B MP #### [facility] [place] [address] Chain Carrier: Bib Morin DO Comp Metabolic Profon 2021 (cont.) Normal [facility] Comment on above: Result Comment: Aver age GFR for 30-39 years old: 107 mL/min/1.73sq m Chronic Kidney Disease: <60 mL/min/1.73sq m Kidney failure: <15 mL/min/1.73sq m eGFR calculated using average adult body mass. Additional eGFR calculator available at: http://www.globalrph.Intelliworks/multiple_crcl_2012.htm Performed By: #### C P #### [facility] [address] [place] [address] Chain Carrier: Bib Morin DO Albumin [Mass/Vol] 4.1 g/dL Normal 3.5-5.[address] [facility] Comment on above: Performed By: #### C P #### [facility] [address] [place] [address] Chain Carrier: Bib Morin DO Alkaline Phos 47 U/L Normal 35-[address] [facility] Comment on above: Performed By: #### C P #### [facility] [facility] [place] [address] Chain Carrier: Bib Morin DO ALT [Catalytic activity/Vol] 14 U/L Normal 5-[address] [facility] Comment on above: Performed By: #### C P #### [facility] [place] [address] Chain Carrier: Bib Morin DO Anion gap [Moles/Vol] 9 mmol/L Normal 9-17 [facility] Comment on above: Performed By: #### C P #### [facility] [place] [address] Chain Carrier: Bib Morin DO AST [Catalytic activity/Vol] 25 U/L Normal <[address] [facility] Comment on above: Performed By: #### C P #### [facility] [place] [address] Chain Carrier: Bib Morin DO Bilirubin [Mass/Vol] 0.26 mg/dL Low 0.3-1.2 [facility] Comment on above: Performed By: #### C P #### [facility] [address] [place] [address] Chain Carrier: Bib Morin DO Calcium [Mass/Vol] 9.4 mg/dL Normal 8.6-10.[address] [facility] Comment on above: Performed By: #### C P #### [facility] [address] [place] [address] Chain Carrier: Bib Morin DO Chloride [Moles/Vol] 104 mmol/L Normal 98-107 [facility] Comment on above: Performed By: #### C P #### [facility] [address] [place] [address] Chain Carrier: Bib Morin DO CO2 [Moles/Vol] 23 mmol/L Normal 20-[address] [facility] Comment on above: Performed By: #### C P #### [facility] [place] [address] Chain Carrier: Bib Morin DO Creatinine [Mass/Vol] 0.67 mg/dL Normal 0.50-0.90 [facility] Comment on above: Performed By: #### C P #### [facility] [place] [address] Chain Carrier: Bib Morin DO GFR, Amer >60 Normal >60 [facility] Comment on above: Performed By: #### C P #### [facility] [address] [place] [address] Chain Carrier: Bib Morin DO GFR,non Amer >60 Normal >60 [facility] Comment on above: Performed By: #### C P #### [facility] [address] [place] [address] Chain Carrier: Bib Morin DO Glucose [Mass/Vol] 91 mg/dL Normal 70-[address] [facility] Comment on above: Performed By: #### C P #### [facility] [address] [place] [address] Chain Carrier: Bib Morin DO Potassium [Moles/Vol] 4.3 mmol/L Normal 3.7-5.3 [facility] Comment on above: Performed By: #### C P #### [facility] [address] [place] [address] Chain Carrier: Bib Morin DO Protein [Mass/Vol] 6.5 g/dL Normal 6.4-8.[address] [facility] Comment on above: Performed By: #### C P #### [facility] [address] [place] [address] Chain Carrier: Bib Morin DO Sodium [Moles/Vol] 136 mmol/L Normal 135-[address] [facility] Comment on above: Performed By: #### C P #### [facility] [place] [address] Chain Carrier: Bib Morin DO Urea nitrogen [Mass/Vol] 10 mg/dL Normal 6-[address] [facility] Comment on above: Performed By: #### C P #### [facility] [address] [place] [address] Chain Carrier: Bib Morin DO Lithiumon 08-08-2021 [place] [Moles/Vol] mmol/L Low 0.6-1.2 [facility] Comment on above: Performed By: #### L IC #### [address] [address] Chain Carrier: Cj Cruz MD Acetaminophenon 08-07-2021 Acetaminophen [Mass/Vol] ug/mL Low 10-30 [facility] Comment on above: Performed By: #### A CET #### [facility] [address] [place] [address] Chain Carrier: Tami Villanueva MD Acetaminophen Levelon 2021 Acetaminophen Level <5 Low 10 - 30 ug/mL [facility] Interpretation and review of laboratory results Abnormal [facility] Basic Metab w/rfx MGon 08-07 Potassium [Moles/Vol] 2.9 mmol/L Critically low 3.7-5.3 [facility] Comment on above: Performed By: #### C DP, BMPX, MG #### [facility] [address] [place] [address] Chain Carrier: Tami Villanueva MD (cont.) [facility] Comment on above: Result Comment: Aver age GFR for 30-39 years old: 107 mL/min/1.73sq m Chronic Kidney Disease: <60 mL/min/1.73sq m Kidney failure: <15 mL/min/1.73sq m eGFR calculated using average adult body mass. Additional eGFR calculator available at: http://www.Lifeenergy.Intelliworks/multiple_crcl_2012.htm Performed By: #### C DP, BMPX, MG #### [address] [place] [address] Chain Carrier: Tami Villanueva MD Anion gap [Moles/Vol] 9 mmol/L Normal 9-17 [facility] Comment on above: Performed By: #### C DP, BMPX, MG #### [facility] [address] [place] [address] Chain Carrier: Tami Villanueva MD BUN/CRE Ratio 17 Normal 9-20 [facility] Comment on above: Performed By: #### C DP, BMPX, MG #### [facility] [address] [place] [address] Chain Carrier: Tami Villanueva MD Calcium [Mass/Vol] 9.5 mg/dL Normal 8.6-10.4 [facility] Comment on above: Performed By: #### C DP, BMPX, MG #### [facility] [address] [place], [place] [id number] Chain Carrier: Tami Villanueva MD Chloride [Moles/Vol] 102 mmol/L Normal 98-107 [facility] Comment on above: Performed By: #### C DP, BMPX, MG #### [facility] [address] [place], [place] [id number] Chain Carrier: Tami Villanueva MD CO2 [Moles/Vol] 28 mmol/L Normal 20-31 [facility] Comment on above: Performed By: #### C DP, BMPX, MG #### [facility] [address] [place], [place] [id number] Chain Carrier: Tami Villanueva MD Creatinine [Mass/Vol] 0.70 mg/dL Normal 0.50-0.90 [facility] Comment on above: Performed By: #### C DP, BMPX, MG #### [facility] [address] [place] [address] Chain Carrier: Tami Villanueva MD GFR, Amer >60 Normal >60 [facility] Comment on above: Performed By: #### C DP, BMPX, MG #### [facility] [address] [place], [place] [id number] Chain Carrier: Tami Villanueva MD GFR,non Amer >60 Normal >60 [facility] Comment on above: Performed By: #### C DP, BMPX, MG #### [facility] [address] [place] [address] Chain Carrier: Tami Villanueva MD Glucose [Mass/Vol] 56 mg/dL Low 70-99 [facility] Comment on above: Performed By: #### C DP, BMPX, MG #### [facility] [address] [place] [address] Chain Carrier: Tami Villanueva MD Sodium [Moles/Vol] 139 mmol/L Normal 135-144 [facility] Comment on above: Performed By: #### C DP, BMPX, MG #### [facility] [address] [place] [address] Chain Carrier: Tami Villanueva MD Staging: Normal [facility] Comment on above: Result Comment: Stag e 1: Some kidney damage normal GFR Stage 2: Mild kidney damage GFR 60-89 Stage 3: Moderate kidney damage GFR 30-59 Stage 4: Severe kidney damage GFR 15-29 Stage 5: Severe kidney damage GFR <15 ESRD - chronic treatment by dialysis or transplant Performed By: #### C DP, BMPX, MG #### [facility] [address] [place] [address] Chain Carrier: Tami Villanueva MD Urea nitrogen [Mass/Vol] 12 mg/dL Normal 6-20 [facility] Comment on above: Performed By: #### C DP, BMPX, MG #### [facility] [address] [place] [address] Chain Carrier: Tami Villanueva MD Basic Metabolic Panel w/ [...] [facility] GFR >60 >60 mL/min [facility] GFR Non- >60 >60 mL/min [facility] Glucose [Mass/Vol] 56 mg/dL Low 70 - 99 mg/dL [facility] Interpretation and review of laboratory results Abnormal [facility] Potassium [Moles/Vol] 2.9 mmol/L Critically low 3.7 - 5.3 mmol/L [facility] Sodium [Moles/Vol] 139 mmol/L 135 - 144 mmol/L [facility] Urea nitrogen (BldV) [Mass/Vol] 12 mg/dL 6 - 20 mg/dL [facility] Urea nitrogen/Creatinine (Bld) [Mass ratio] 17 [facility] CBC with Auto Differentialon 08-07-2021 Absolute Eos # 0.11 [facility] Absolute Immature Granulocyte <0.03 [facility] Absolute Lymph # 1.45 [facility] alth Absolute [place] # 0.43 [facility] lt Basophils (Bld) [#/Vol] 0.06 10*3/uL [facility] Basophils/100 WBC (Bld) 1 % 0 - 2 % [facility] Eosinophils/100 WBC (Bld) 2 % 1 - 4 % [facility] Hematocrit (Bld) [Volume fraction] 39.9 % 36.3 - 47.1 % [facility] Hemoglobin.gastrointest inal spec 1 Ql (Stl) 12.7 g/dL 11.9 [...] (Bld) 9 % 3 - 12 % [facility] NRBC Automated 0.0 0.0 per 100 [...] % [facility] Segs Absolute 2.62 [facility] WBC (Bld) [#/Vol] 4.7 10*3/uL [facility] CBC with Diffon 08-07-2021 Abs. Basophil 0.06 k/uL Normal 0.00-0.20 [facility] Comment on above: Performed By: #### C DP, BMPX, MG #### [address] [place] [address] Chain Carrier: Tami Villanueva MD Abs.Imm.Granulocyte <0.03 Normal 0.00-0.30 [facility] Comment on above: Performed By: #### C DP, BMPX, MG #### [address] [place], [facility] Chain Carrier: Tami Villanueva MD Abs.Neutrophil (Seg) 2.62 k/uL Normal 1.50-8.10 [facility] Comment on above: Performed By: #### C DP, BMPX, MG #### [address] [place], [place] [address] Chain Carrier: Tami Villanueva MD Basophils/100 WBC (Bld) 1 % Normal 0-2 [facility] Comment on above: Performed By: #### C DP, BMPX, MG #### [address] [place], [place] [address] Chain Carrier: Tami Villanueva MD Eosinophils (Bld) [#/Vol] 0.11 10*3/uL Normal 0.00-0.44 [facility] Comment on above: Performed By: #### C DP, BMPX, MG #### [address] [place], [place] 18[address]83 Chain Carrier: Tami Villanueva MD Eosinophils/100 WBC (Bld) 2 % Normal 1-4 [facility] Comment on above: Performed By: #### C DP, BMPX, MG #### [facility] [address] [place], [facility]83 Chain Carrier: Tami Villanueva MD Erythrocyte distribution width (RBC) [Ratio] 17.2 % High 11.8-14.4 [facility] Comment on above: Performed By: #### C DP, BMPX, MG #### [facility] [address] [place], [facility]83 Chain Carrier: Tami Villanueva MD Hematocrit (Bld) [Volume fraction] 39.9 % Normal 36.3-47.1 [facility] Comment on above: Performed By: #### C DP, BMPX, MG #### [facility] [address] [place] [id number] Chain Carrier: Tami Villanueva MD Hemoglobin (Bld) [Mass/Vol] 12.7 g/dL Normal 11.9-15.1 [facility] Comment on above: Performed By: #### C DP, BMPX, MG #### [facility] [address] [place], [facility] Chain Carrier: Tami Villanueva MD Immature granulocytes/100 WBC (Bld) 0 % Normal 0 [facility] Comment on above: Performed By: #### C DP, BMPX, MG #### [address] [place]endez, [facility]83 Chain Carrier: Tami Villanueva MD Lymphocytes (Bld) [#/Vol] 1.45 10*3/uL Normal 1.10-3.70 [facility] Comment on above: Performed By: #### C DP, BMPX, MG #### [facility] [address] [place] [address] Chain Carrier: Tami Villanueva MD Lymphocytes/100 WBC (Bld) 31 % Normal 24-43 [facility] Comment on above: Performed By: #### C DP, BMPX, MG #### [address] [place] [address] Chain Carrier: Tami Villanueva MD MCH (RBC) [Entitic mass] 28.0 pg Normal 25.2-33.5 [facility] Comment on above: Performed By: #### C DP, BMPX, MG #### [address] [place], [facility]83 Chain Carrier: Tami Villanueva MD MCHC (RBC) [Mass/Vol] 31.8 g/dL Normal 28.4-34.8 [facility] Comment on above: Performed By: #### C DP, BMPX, MG #### [address] [place] [id number] Chain Carrier: Tami Villanueva MD MCV (RBC) [Entitic vol] 88.1 fL Normal 82.6-102.9 [facility] Comment on above: Performed By: #### C DP, BMPX, MG #### [address] [place], [facility]83 Chain Carrier: Tami Villanueva MD Monocytes (Bld) [#/Vol] 0.43 10*3/uL Normal 0.10-1.20 [facility] Comment on above: Performed By: #### C DP, BMPX, MG #### [address] [place]endez, [facility]83 Chain Carrier: Tami Villanueva MD Monocytes/100 WBC (Bld) 9 % Normal 3-12 M [facility] Comment on above: Performed By: #### C DP, BMPX, MG #### [address] [place] [id number] Chain Carrier: Tami Villanueva MD Neutrophil (Seg) 57 % Normal 36-65 [facility] Comment on above: Performed By: #### C DP, BMPX, MG #### [address] [place] [address] Chain Carrier: Tami Villanueva MD NRBC Automated 0.0 per 100 WBC Normal 0.0 [facility] Comment on above: Performed By: #### C DP, BMPX, MG #### [facility] [address] [place] [address] Dr[place] [id number] Chain Carrier: Tami Villanueva MD Platelet mean volume (Bld) [Entitic vol] 10.3 fL Normal 8.1-13.5 [facility] Comment on above: Performed By: #### C DP, BMPX, MG #### [address] [place] [address] Chain Carrier: Tami Villanueva MD Platelets (Bld) [#/Vol] 269 10*3/uL Normal 138-453 [facility] Comment on above: Performed By: #### C DP, BMPX, MG #### [address] [place] [id number] Chain Carrier: Tami Villanueva MD RBC (Bld) [#/Vol] 4.53 10*6/uL Normal 3.95-5.11 [facility] Comment on above: Performed By: #### C DP, BMPX, MG #### [address] [place] [address] Chain Carrier: Tami Villanueva MD WBC (Bld) [#/Vol] 4.7 10*3/uL Normal 3.5-11.3 [facility] Comment on above: Performed By: #### C DP, BMPX, MG #### [address] [place] [id number] Chain Carrier: Tami Villanueva MD COVID-19, Rapidon 08-07-2021 SARS-CoV-2 [...] management decisions. Fact sheet for Healthcare Providers: https://www.fda.gov/media/893488/download Fact sheet for Patients: https://www.fda.gov/media/783992/download Methodology: Isothermal Nucleic Acid Amplification Specimen Description .NASOPHARYNGEAL SWAB [facility] HCG, ,Urineon 08-07 Beta HCG ( test) Ql (U) Negative Normal NEG [facility] Comment on above: Result Comment: Spec imens with hCG levels near the threshold of the test (25 mIU/mL) may give a negative or indeterminate result. In such cases, another test should be performed with a new specimen in 48-72 hours. If early is suspected clinically in this setting, correlation with quantitative serum b-hCG level is suggested. [facility] has confirmed the use of plasma for this test. This has not been cleared or approved by the U.S. Food and Drug Administration. The FDA has determined that such clearance is not necessary. Performed By: #### U HCG, UAX, UMICAO #### [facility] [address] [place] [address] Chain Carrier: Tami Villanueva MD Laboratory - Chemistry and C hemistry - challengeon 08-07-2021 GFR/1.73 sq M.predicted MDRD (S/P/Bld) [Vol rate/Area] [facility] Comment on above: Average GFR for 30-3 9 years old: 107 mL/min/1.73sq m Chronic Kidney Disease: <60 mL/min/1.73sq m Kidney failure: <15 mL/min/1.73sq m eGFR calculated using average adult body mass. Additional eGFR calculator available at: http://www.Lifeenergy.Intelliworks/multiple_crcl_2012.htm Stage 1: Some kidney damage normal GFR Stage 2: Mild kidney damage GFR 60-89 Stage 3: Moderate kidney damage GFR 30-59 Stage 4: Severe kidney damage GFR 15-29 Stage 5: Severe kidney damage GFR <15 ESRD - chronic treatment by dialysis or transplant Magnesiumon 08-07-2021 Magnesium [Mass/Vol] 2.1 mg/dL Normal 1.6-2.6 [facility] Comment on above: Performed By: #### U HCG, UAX, UMICAO #### [facility] [address] [place] [address] Chain Carrier: Tami Villanueva MD Magnesium [Mass/Vol] 2.1 mg/dL 1.6 - 2 .6 mg/dL [facility] Microscopic Urinalysison - [facility] Bacteria, UA 1+ Abnormal None [facility] Epithelial Cells UA 0 TO 2 [facility] Interpretation and review of laboratory results Abnormal [facility] RBC, UA 0 TO 2 [facility] WBC, UA 2 TO 5 [facility] , Urineon 2 Beta HCG ( test) [...] with quantitative serum b-hCG level is suggested. [facility] for this test. This has not been cleared or approved by the U.S. Food and Drug Administration. The FDA has determined that such clearance is not necessary. [facility] [id number] 08-07-2021 SARS-CoV-2 (COVID-19) RNA AMARA+probe Ql (Unsp spec) Not detected Normal NOTDET [facility] Comment on above: Result Comment: Rapid NAAT: [...] management decisions. Fact sheet for Healthcare Providers: https://www.fda.gov/media/809614/download Fact sheet for Patients: https://www.fda.gov/media/870060/download Methodology: Isothermal Nucleic Acid Amplification Performed By: #### C OVRB #### [facility] [address] [place] [address] Chain Carrier: Tami Villanueva MD Salicylateon 08-07-2021 Salicylate <1 Low 3-10 [facility] Comment on above: Performed By: #### U HCG, UAX, UMICAO #### [facility] [address] [place] [address] Chain Carrier: Tami Villanueva MD Interpretation and review of laboratory results Abnormal [facility] Salicylate Lvl <1 Low 3 - 10 mg/dL [facility] TSH w/reflex to FT4on 2021 TSH Qn 0.99 m[IU]/L Normal 0.30-5.00 [facility] Comment on above: Performed By: #### T SHX #### [facility] [address] [place] [address] Chain Carrier: Tami Villanueva MD TSH with Reflexon 08-07-2021 TSH Qn 0.99 m[IU]/L [facility] UA w/Reflex Cultureon 2021 Bilirubin, SemiQt,Ur Negative Normal NEG [facility] Comment on above: Performed By: #### U HCG, UAX, UMICAO #### [facility] [address] [place], [place] [id number] Chain Carrier: Tami Villanueva MD Blood, Urine Negative Normal NEG [facility] Comment on above: Performed By: #### U HCG, UAX, UMICAO #### [facility] [address] [place], [place] [id number] Chain Carrier: Tami Villanueva MD Clarity (U) Clear Normal CLEAR [facility] Comment on above: Performed By: #### U HCG, UAX, UMICAO #### [facility] [address] [place], [place] [id number] Chain Carrier: Tmai Villanueva MD Color (U) Yellow Normal YEL [facility] Comment on above: Performed By: #### U HCG, UAX, UMICAO #### [facility] [address] [place], [place] [id number] Chain Carrier: Tami Villanueva MD Glucose Ql (U) Negative Normal NEG [facility] Comment on above: Performed By: #### U HCG, UAX, UMICAO #### [facility] [address] [place] [address] Dr[address] [place], [place] [id number] Chain Carrier: Tami Villanueva MD Ketones Ql (U) Negative Normal NEG [facility] Comment on above: Performed By: #### U HCG, UAX, UMICAO #### [facility] [address] [place], [place] [id number] Chain Carrier: Tami Villanueva MD Leukocyte esterase Test strip Ql (U) SMALL Abnormal NEG [facility] Comment on above: Performed By: #### U HCG, UAX, UMICAO #### [facility] [address] [place], [place] [phone] Chain Carrier: Tami Villanueva MD Nitrite,Ur Negative Normal NEG [facility] Comment on above: Performed By: #### U HCG, UAX, UMICAO #### [facility] [address] [place], [place] [phone] Chain Carrier: Tami Villanueva MD PH,Ur 6.0 Normal 5.0-9.0 [facility] Comment on above: Performed By: #### U HCG, UAX, UMICAO #### [facility] [address] [place] [address] Dr. [place], [facility] Chain Carrier: Tami Villanueva MD Protein Ql (U) Negative Normal NEG [facility] Comment on above: Performed By: #### U HCG, UAX, UMICAO #### [address] [place], [place] [id number] Chain Carrier: Tami Villanueva MD Spec. [place],Ur <1.005 Low 1.010-1.020 [facility] Comment on above: Performed By: #### U HCG, UAX, UMICAO #### [address] [place], [facility] Chain Carrier: Tami Villanueva MD Urobilinogen,Ur Normal Normal NORM [facility] Comment on above: Performed By: #### U HCG, UAX, UMICAO #### [address] [place] [id number] Chain Carrier: Tami Villanueva MD Urinalysis with Reflex to Cu ltureon 08-07-2021 Bilirubin Urine Negative NEGATIVE [facility] Color, UA Yellow Yellow [facility] Glucose, Ur Negative NEGATIVE [facility] Interpretation and review of laboratory results Abnormal [facility] Ketones Ql (U) Negative NEGATIVE [facility] Leukocyte esterase Test strip Ql (U) SMALL Abnormal NEGATIVE [facility] Nitrite, Urine Negative NEGATIVE [facility] pH, UA 6.0 [facility] Protein, UA Negative NEGATIVE [facility] Specific [place], UA <1.005 Low [facility] Turbidity UA Clear Clear [facility] Urine Hgb Negative NEGATIVE [facility] Urobilinogen, Urine Normal Normal [facility] Urinalysis,Microon 2 ----- Normal [facility] Comment on above: Performed By: #### U HCG, UAX, UMICAO #### [facility] [address] [place] [address] Chain Carrier: Tami Villanueva MD Bacteria 1+ Abnormal NONE [facility] Comment on above: Performed By: #### U HCG, UAX, UMICAO #### [facility] [address] [place] [address] Chain Carrier: Tami Villanueva MD Epithelial cells LM Ql (Urine sed) 0 TO 2 Normal 0-25 [facility] Comment on above: Performed By: #### U HCG, UAX, UMICAO #### [facility] [address] [place] [address] Chain Carrier: Tami Villanueva MD Urine RBC's 0 TO 2 Normal 0-2 [facility] Comment on above: Performed By: #### U HCG, UAX, UMICAO #### [facility] [address] [place] [address] Chain Carrier: Tami Villanueva MD Urine WBC's 2 TO 5 Normal 0-5 [facility] Comment on above: Performed By: #### U HCG, UAX, UMICAO #### [facility] [address] [place] [address] Chain Carrier: Tami Villanueva MD Coronavirus 2019on 1 SARS-CoV-2 (COVID-19) RNA AMARA+probe Ql (Unsp spec) Normal Negative for COVID19 (SARS CoV2) by RT-PCR or equival [facility] Comment on above: Result Comment: Nega tive for This test was developed and its performance characteristics determined by [facility] [place]. This test has been authorized by FDA under an Emergency Use Authorization (EUA). This test has been validated in accordance with the FDA's Guidance Document "Policy for Diagnostics Testing in Laboratories Certified to Perform High Complexity Testing under CLIA prior to Emergency use Authorization for Coronavirus Disease 2019 during the Public Health Emergency" issued on July 27, 2019. Test performed by [facility], [facility], [address], [place] [address]. COVID19 (SARS This test was developed and its performance characteristics determined by [facility]. This test has been authorized by FDA under an Emergency Use Authorization (EUA). This test has been validated in accordance with the FDA's Guidance Document "Policy for Diagnostics Testing in Laboratories Certified to Perform High Complexity Testing under CLIA prior to Emergency use Authorization for Coronavirus Disease 2019 during the Public Health Emergency" issued on July 27, 2019. Test performed by [facility], [facility], [address], [place] [address]. CoV2) by RT-PCR This test was developed and its performance characteristics determined by [facility]. This test has been authorized by FDA under an Emergency Use Authorization (EUA). This test has been validated in accordance with the FDA's Guidance Document "Policy for Diagnostics Testing in Laboratories Certified to Perform High Complexity Testing under CLIA prior to Emergency use Authorization for Coronavirus Disease 2019 during the Public Health Emergency" issued on July 27, 2019. Test performed by [facility], [facility], [address], [place] [address]. or equivalent This test was developed and its performance characteristics determined by [facility]. This test has been authorized by FDA under an Emergency Use Authorization (EUA). This test has been validated in accordance with the FDA's Guidance Document "Policy for Diagnostics Testing in Laboratories Certified to Perform High Complexity Testing under CLIA prior to Emergency use Authorization for Coronavirus Disease 2019 during the Public Health Emergency" issued on July 27, 2019. Test performed by [facility], [facility], [address], [place] [address]. ethod. This test was developed and its performance characteristics determined by [facility] [place]. This test has been authorized by FDA under an Emergency Use Authorization (EUA). This test has been validated in accordance with the FDA's Guidance Document "Policy for Diagnostics Testing in Laboratories Certified to Perform High Complexity Testing under CLIA prior to Emergency use Authorization for Coronavirus Disease 2019 during the Public Health Emergency" issued on July 27, 2019. Test performed by [facility], [facility] [place], [address] [place], [place] [address]. Coronavirus 2019on 1 SARS-CoV-2 (COVID-19) RNA AMARA+probe Ql (Unsp spec) [place]URNER Normal [facility] Final Surgical Pathology Rep dagoberto 07-19-2019 Final Surgical Pathology Report . Pathology Reports Accession: Collected Date/Time: Received Date/Time: Pathologist: [id number] 07/15/2019 14:18 EST 07/16/2019 13:34 EST MD FREDERICK ONTIVEROS Final Surgical Pathology Report DIAGNOSIS: A) CERVIX, BIOPSY: CONDYLOMA AND MILD SQUAMOUS DYSPLASIA. IMMUNOPEROXIDASE STAIN FOR P16 IS NEGATIVE. B) ENDOCERVIX, CURETTAGE: MUCUS AND FRAGMENTS OF ENDOCERVICAL TISSUE WITH NO SPECIFIC PATHOLOGIC CHANGES. COMMENT: [facility] - D# [id number] CLINICAL INFORMATION: ABNORMAL PAP SMEAR OF CERVIX [...] Electronically Signed by Pathology Report verified by [facility] Electronically signed by FREDERICK ONTIVEROS MD Sign out Date: 07/19/2019 07:46 Performing Lab: [facility], [address] [place] [address] ([place] Comment on above: Performed By: #### C BC, ADIFF, ANEU, APTT #### [place] [address] HPVon 06-05-2019 HPV Interp See Interp HPVN Count Includes [facility] ([place]) Comment on above: Order Comment: Order placed by [id number] rule from [id number] Result Comment: High Risk HPV Typing Positive: [...] #### C BC, ADIFF, ANEU, APTT #### [place] [address] HPV Source Cervix Normal Count Includes [facility] ([place]) Comment on above: Order Comment: Order placed by [id number] rule from [id number] Performed By: #### C BC, ADIFF, ANEU, APTT #### [place] [address] Registered Appraiser Cytology Reporton 2019 Registered Appraiser Cytology Report . Pathology Reports Accession: Collected Date/Time: Received Date/Time: Pathologist: [id number] 05/28/2019 11:14 EST 05/30/2019 18:00 MD FREDERICK NG Registered Appraiser Cytology Report SPECIMEN: Specimen Description: Liquid Prep Reflex ASCUS Specimen: Cervical Screening or Diagnostic: Screening RELEVANT HISTORY: LMP: Post [id number] SPECIMEN ADEQUACY: SATISFACTORY FOR EVALUATION ENDOCERVICAL/TRANSFOR MATIONAL ZONE COMPONENT PRESENT INTERPRETATION/RESULT S: ATYPICAL SQUAMOUS CELLS OF UNDETERMINED SIGNIFICANCE ADJUNCTIVE TESTING: HIGH RISK HPV DNA TESTING ORDERED, REPORT TO FOLLOW UNDER SEPARATE COVER COMMENT: This Pap Test was successfully processed and evaluated with the assistance of the [employer] ThinPrep Test Imaging System. Electronically Signed by Pathology report verified by [facility] Screened by: SAMMIE RM Electronically signed by FREDERICK ONTIVEROS MD Sign-Out Date: 06/03/2019 15:15 Performing Lab: [facility], [address] [place] [address] Disclaimer The Pap test is a screening test for cervical cancer. As evidenced by published data, it is subject to both inherent false negative and false positive results. Your patient's results should be interpreted in context with pertinent clinical history including gynecological examination. Normal Count Includes [facility] ([place]) Comment on above: Performed By: #### C BC, ADIFF, ANEU, APTT #### [place] [address] .Auto Diffon 05-03-2019 Ammonia (P) [Mass/Vol] 0.30 10 3/mcL Normal 0.09-1.40 Count Includes [facility] ([place]) Comment on above: Performed By: #### C BC, ADIFF, ANEU, APTT #### [address] [address] Basophils (Bld) [#/Vol] 0.00 10 3/mcL Normal 0.00-0.27 Count Includes [facility] ([place]) Comment on above: Performed By: #### C BC, ADIFF, ANEU, APTT #### [address] [address] Basophils/100 WBC (Bld) 0.9 % Normal 0.0-2.5 A [facility] ([place]) Comment on above: Performed By: #### C BC, ADIFF, ANEU, APTT #### [address] [address] Eosinophils (Bld) [#/Vol] 0.20 10 3/mcL Normal 0.00-0.65 Count Includes [facility] ([place]) Comment on above: Performed By: #### C BC, ADIFF, ANEU, APTT #### [address] [address] Eosinophils/100 WBC (Bld) 3.0 % Normal 0.0-6.0 Count Includes [facility] ([place]) Comment on above: Performed By: #### C BC, ADIFF, ANEU, APTT #### [address] [address] Lymphocytes (Bld) [#/Vol] 2.40 10 3/mcL Normal 0.90-4.32 Count Includes [facility] ([place]) Comment on above: Performed By: #### C BC, ADIFF, ANEU, APTT #### [address] [address] Lymphocytes/100 WBC (Bld) 47.6 % High 20.0-40.0 Count Includes [facility] ([place]) Comment on above: Performed By: #### C BC, ADIFF, ANEU, APTT #### [address] [address] Monocytes/100 WBC (Bld) 5.1 % Normal 2.0-13.0 [facility] ([place]) Comment on above: Performed By: #### C BC, ADIFF, ANEU, APTT #### [address] [address] Neutrophils/100 WBC (Bld) 43.4 % Low 50.0-75.0 Count Includes [facility] ([place]) Comment on above: Performed By: #### C BC, ADIFF, ANEU, APTT #### [address] [address] .NEUABSon 05-03-2019 Neutrophils (Bld) [#/Vol] 2.20 10 3/mcL Low 2.25-8.10 Count Includes [facility] ([place] Comment on above: Performed By: #### C BC, ADIFF, ANEU, APTT #### [address] [address] APTTon 05-03-2019 aPTT Coag (Bld) [Time] 77.1 s High 25.0-35.0 [facility] ([place]) Comment on above: Result Comment: For Heparin anticoagulation therapy, the recommended therapeutic range is: 54-77 seconds (APTT Correlation with Anti-Xa therapeutic range of 0.3-0.7 units/ml). PLEASE REFERENCE THE PHARMACY PROTOCOL FOR DOSING. Performed By: #### C BC, ADIFF, ANEU, APTT #### [place] [id number] aPTT Coag (Bld) [Time] Heparin IV Normal [facility] ([place] Comment on above: Performed By: #### C BC, ADIFF, ANEU, APTT #### [place] [id number] aPTT Coag (Bld) [Time] 74.5 s High 25.0-35.0 [facility] ([place] Comment on above: Result Comment: For Heparin anticoagulation therapy, the recommended therapeutic range is: 54-77 seconds (APTT Correlation with Anti-Xa therapeutic range of 0.3-0.7 units/ml). PLEASE REFERENCE THE PHARMACY PROTOCOL FOR DOSING. Performed By: #### C BC, ADIFF, ANEU, APTT #### [place] [address] aPTT Coag (Bld) [Time] Heparin IV Normal [facility] ([place] Comment on above: Performed By: #### C BC, ADIFF, ANEU, APTT #### [place] [id number] CBCon 05-03-2019 Erythrocyte distribution width (RBC) [Ratio] 23.6 % High 11.5-15.5 Count Includes [facility] ([place] Comment on above: Performed By: #### C BC, ADIFF, ANEU, APTT #### [place] [address] Hematocrit (Bld) [Volume fraction] 32.9 % Low 34.0-46.0 Count Includes [facility] ([place] Comment on above: Performed By: #### C BC, ADIFF, ANEU, APTT #### [place] [address] Hemoglobin (Bld) [Mass/Vol] 10.6 G/dL Low 12.0-16.0 Count Includes [facility] ([place]) Comment on above: Performed By: #### C BC, ADIFF, ANEU, APTT #### [address] [address] MCH (RBC) [Entitic mass] 26.0 pg Low 27.0-33.0 Count Includes [facility] ([place]) Comment on above: Performed By: #### C BC, ADIFF, ANEU, APTT #### [place] [id number] MCHC (RBC) [Mass/Vol] 32.2 G/dL Normal 32.0-36.0 [facility] ([place]) Comment on above: Performed By: #### C BC, ADIFF, ANEU, APTT #### [place] [id number] MCV (RBC) [Entitic vol] 80.5 fL Normal 80.0-99.0 [facility] ([place]) Comment on above: Performed By: #### C BC, ADIFF, ANEU, APTT #### [place] [address] Platelet mean volume (Bld) [Entitic vol] 8.2 fL Normal 6.6-10.5 Count Includes [facility] ([place] Comment on above: Performed By: #### C BC, ADIFF, ANEU, APTT #### [place] [id number] Platelets (Bld) [#/Vol] 247 10 3/mcL Normal 150-450 Count Includes [facility] ([place]) Comment on above: Performed By: #### C BC, ADIFF, ANEU, APTT #### [place] [id number] RBC (Bld) [#/Vol] 4.08 10 6/mcL Low 4.10-5.30 [facility] ([place]) Comment on above: Performed By: #### C BC, ADIFF, ANEU, APTT #### [place] [id number] WBC (Bld) [#/Vol] 5.00 10 3/mcL Normal 4.50-10.80 [facility] ([place]) Comment on above: Performed By: #### C BC, ADIFF, ANEU, APTT #### [address] [address] .Auto Diffon 05-02-2019 Ammonia (P) [Mass/Vol] 0.30 10 3/mcL Normal 0.09-1.40 Count Includes [facility] ([place]) Comment on above: Performed By: #### C BC, ADIFF, ANEU, APTT #### [address] [address] Basophils (Bld) [#/Vol] 0.10 10 3/mcL Normal 0.00-0.27 Count Includes [facility] ([place]) Comment on above: Performed By: #### C BC, ADIFF, ANEU, APTT #### [address] [address] Basophils/100 WBC (Bld) 2.4 % Normal 0.0-2.5 A [facility] ([place]) Comment on above: Performed By: #### C BC, ADIFF, ANEU, APTT #### [address] [address] Eosinophils (Bld) [#/Vol] 0.10 10 3/mcL Normal 0.00-0.65 Count Includes [facility] ([place]) Comment on above: Performed By: #### C BC, ADIFF, ANEU, APTT #### [address] [address] Eosinophils/100 WBC (Bld) 3.1 % Normal 0.0-6.0 Count Includes [facility] ([place]) Comment on above: Performed By: #### C BC, ADIFF, ANEU, APTT #### [address] [address] Lymphocytes (Bld) [#/Vol] 1.80 10 3/mcL Normal 0.90-4.32 Count Includes [facility] ([place]) Comment on above: Performed By: #### C BC, ADIFF, ANEU, APTT #### [address] [address] Lymphocytes/100 WBC (Bld) 40.1 % High 20.0-40.0 Count Includes [facility] ([place]) Comment on above: Performed By: #### C BC, ADIFF, ANEU, APTT #### [address] [address] Monocytes/100 WBC (Bld) 6.1 % Normal 2.0-13.0 [facility] ([place]) Comment on above: Performed By: #### MECHELLE SEVERINO ANEU, APTT #### [address] [address] Neutrophils/100 WBC (Bld) 48.3 % Low 50.0-75.0 Count Includes [facility] ([place]) Comment on above: Performed By: #### MECHELLE SEVERINO, CRISS, APTT #### [address] [address] Ammonia (P) [Mass/Vol] 0.40 10 3/mcL Normal 0.09-1.40 Count Includes [facility] ([place]) Comment on above: Performed By: #### MECHELLE SEVERINO, ANEU #### [address] [address] Basophils (Bld) [#/Vol] 0.10 10 3/mcL Normal 0.00-0.27 Count Includes [facility] ([place]) Comment on above: Performed By: #### MECHELLE SEVERINO, ANEU #### [address] [address] Basophils/100 WBC (Bld) 1.5 % Normal 0.0-2.5 A [facility] ([place]) Comment on above: Performed By: #### Bryan VIRGEN, MECHELLE, ANEU #### [address] [address] Eosinophils (Bld) [#/Vol] 0.10 10 3/mcL Normal 0.00-0.65 Count Includes [facility] ([place]) Comment on above: Performed By: #### Bryan VIRGEN, MECHELLE, ANEU #### [address] [address] Eosinophils/100 WBC (Bld) 2.6 % Normal 0.0-6.0 Count Includes [facility] ([place]) Comment on above: Performed By: #### Bryan VIRGEN, MECHELLE, ANEU #### [address] [address] Lymphocytes (Bld) [#/Vol] 2.30 10 3/mcL Normal 0.90-4.32 Count Includes [facility] ([place]) Comment on above: Performed By: #### C MECHELLE VIRGEN ANEU #### [address] [address] Lymphocytes/100 WBC (Bld) 41.5 % High 20.0-40.0 Count Includes [facility] ([place]) Comment on above: Performed By: #### MECHELLE SEVERINO ANEU #### [address] [address] Monocytes/100 WBC (Bld) 6.5 % Normal 2.0-13.0 A [facility] ([place]) Comment on above: Performed By: #### MECHELLE SEVERINO ANEU #### [address] [address] Neutrophils/100 WBC (Bld) 47.9 % Low 50.0-75.0 Count Includes [facility] ([place]) Comment on above: Performed By: #### C MECHELLE VIRGEN ANEU #### [address] [address] Ammonia (P) [Mass/Vol] 0.40 10 3/mcL Normal 0.09-1.40 Count Includes [facility] ([place]) Comment on above: Performed By: #### MECHELLE SEVERINO ANEU, APTT #### [address] [address] Basophils (Bld) [#/Vol] 0.00 10 3/mcL Normal 0.00-0.27 Count Includes [facility] ([place]) Comment on above: Performed By: #### C MECHELLE VIRGEN ANEU, APTT #### [address] [address] Basophils/100 WBC (Bld) 0.8 % Normal 0.0-2.5 A [facility] ([place]) Comment on above: Performed By: #### MECHELLE SEVERINO ANEU, APTT #### [address] [address] Eosinophils (Bld) [#/Vol] 0.10 10 3/mcL Normal 0.00-0.65 Count Includes [facility] ([place]) Comment on above: Performed By: #### C BC, ADIFF, ANEU, APTT #### [address] [address] Eosinophils/100 WBC (Bld) 2.0 % Normal 0.0-6.0 Count Includes [facility] ([place]) Comment on above: Performed By: #### C BC, ADIFF, ANEU, APTT #### [address] [address] Lymphocytes (Bld) [#/Vol] 2.30 10 3/mcL Normal 0.90-4.32 Count Includes [facility] ([place]) Comment on above: Performed By: #### C BC, ADIFF, ANEU, APTT #### [address] [address] Lymphocytes/100 WBC (Bld) 37.6 % Normal 20.0-40.0 Count Includes [facility] ([place]) Comment on above: Performed By: #### C BC, ADIFF, ANEU, APTT #### [address] [address] Monocytes/100 WBC (Bld) 6.0 % Normal 2.0-13.0 A [facility] ([place]) Comment on above: Performed By: #### C BC, ADIFF, ANEU, APTT #### [address] [address] Neutrophils/100 WBC (Bld) 53.6 % Normal 50.0-75.0 Count Includes [facility] ([place] Comment on above: Performed By: #### C BC, ADIFF, ANEU, APTT #### [address] [address] .GFRon 05-02-2019 GFR >60 Normal [facility] ([place]) Comment on above: Result Comment: GFR [...] #### C MECHELLE VIRGEN ANEU, APTT #### [address] [address] GFR Non- >60 Normal Count Includes [facility] ([place] Comment on above: Result Comment: GFR Population [...] #### C MECHELLE VIRGEN ANEU, APTT #### [address] [address] .NEUABSon 05-02-2019 Neutrophils (Bld) [#/Vol] 2.10 10 3/mcL Low 2.25-8.10 Count Includes [facility] ([place] Comment on above: Performed By: #### C MECHELLE VIRGEN ANEU, APTT #### [address] [address] Neutrophils (Bld) [#/Vol] 2.70 10 3/mcL Normal 2.25-8.10 Count Includes [facility] ([place] Comment on above: Performed By: #### MECHELLE SEVERINO ANEU #### [address] [address] Neutrophils (Bld) [#/Vol] 3.30 10 3/mcL Normal 2.25-8.10 Count Includes [facility] ([place] Comment on above: Performed By: #### MECHELLE SEVERINO ANEU, APTT #### [address] [address] APTTon 05-02-2019 aPTT Coag (Bld) [Time] 75.6 s High 25.0-35.0 [facility] ([place]) Comment on above: Result Comment: For Heparin anticoagulation therapy, the recommended therapeutic range is: 54-77 seconds (APTT Correlation with Anti-Xa therapeutic range of 0.3-0.7 units/ml). PLEASE REFERENCE THE PHARMACY PROTOCOL FOR DOSING. Performed By: #### C BC, MECHELLE ANEU, APTT #### [address] [address] aPTT Coag (Bld) [Time] Heparin IV Normal [facility] ([place] Comment on above: Performed By: #### C BC, MECHELLE ANEU, APTT #### [address] [address] aPTT Coag (Bld) [Time] Unknown Normal [facility] ([place] Comment on above: Performed By: #### C BC, MECHELLE, ANEU, APTT #### [address] [address] aPTT Coag (Bld) [Time] 150.2 s Criticall y abnormal 25.0-35.0 Count Includes [facility] ([place] Comment on above: Result Comment: For Heparin anticoagulation therapy, the recommended therapeutic range is: 54-77 seconds (APTT Correlation with Anti-Xa therapeutic range of 0.3-0.7 units/ml). PLEASE REFERENCE THE PHARMACY PROTOCOL FOR DOSING. Performed By: #### C BC, MECHELLE, ANEU, APTT #### [address] [address] BMPon 05-02-2019 Calcium [Mass/Vol] 9.0 mg/dL Normal 8.4-10.1 [facility] ([place]) Comment on above: Performed By: #### B MP, MG, GFR, CBC, MECHELLE ANEU #### [address] [address] Chloride [Moles/Vol] 110 mmol/L Normal 98-110 [facility] ([place]) Comment on above: Performed By: #### B MP, MG, GFR, CBC, ADIFF, ANEU #### [address] [address] CO2 [Moles/Vol] 26 mmol/L Normal 22-32 Count Includes [facility] ([place] Comment on above: Performed By: #### B MP, MG, GFR, CBC, ADIFF, ANEU #### [address] [address] Creatinine [Mass/Vol] 0.76 mg/dL Normal 0.50-1.20 [facility] ([place]) Comment on above: Performed By: #### B MP, MG, GFR, CBC, ADIFF, ANEU #### [address] [address] Electrolyte Balance 6.0 mEq/L Normal 4.0-15.0 [facility] ([place]) Comment on above: Performed By: #### B MP, MG, GFR, CBC, ADIFF, ANEU #### [place] [id number] Glucose [Mass/Vol] 81 mg/dL Normal 70-110 [facility] ([place] Comment on above: Performed By: #### B MP, MG, GFR, CBC, ADIFF, ANEU #### [address] [address] Potassium [Moles/Vol] 3.6 mmol/L Normal 3.5-5.0 [facility] ([place]) Comment on above: Performed By: #### B MP, MG, GFR, CBC, ADIFF, ANEU #### [address] [address] Sodium [Moles/Vol] 142 mmol/L Normal 136-145 [facility] ([place] Comment on above: Performed By: #### B MP, MG, GFR, CBC, ADIFF, ANEU #### [address] [address] Urea nitrogen [Mass/Vol] 12.0 mg/dL Normal 8.0-22.0 Count Includes [facility] ([place] Comment on above: Performed By: #### B MP, MG, GFR, CBC, ADIFF, ANEU #### [place] [id number] Urea nitrogen/Creatinine [Mass ratio] 15.8 ratio Normal 10.0-22.0 Count Includes [facility] ([place] Comment on above: Performed By: #### B MP, MG, GFR, CBC, ADIFF, ANEU #### [place] [id number] CBCon 05-02-2019 Erythrocyte distribution width (RBC) [Ratio] 23.4 % High 11.5-15.5 Count Includes [facility] ([place] Comment on above: Performed By: #### C BC, ADJUANI, ANEU, APTT #### [place] [id number] Hematocrit (Bld) [Volume fraction] 33.1 % Low 34.0-46.0 Count Includes [facility] ([place] Comment on above: Performed By: #### C BC, MECHELLE, ANEU, APTT #### [place] [phone] Hemoglobin (Bld) [Mass/Vol] 10.5 G/dL Low 12.0-16.0 Count Includes [facility] ([place] Comment on above: Performed By: #### C BC, ADJUANI, ANEU, APTT #### [place] [id number] MCH (RBC) [Entitic mass] 25.5 pg Low 27.0-33.0 Count Includes [facility] ([place] Comment on above: Performed By: #### C BC, ADIFF, ANEU, APTT #### [place] [id number] MCHC (RBC) [Mass/Vol] 31.7 G/dL Low 32.0-36.0 [facility] ([place]) Comment on above: Performed By: #### C BC, ADJUANI, ANEU, APTT #### [place] [id number] MCV (RBC) [Entitic vol] 80.4 fL Normal 80.0-99.0 A [facility] ([place]) Comment on above: Performed By: #### C BC, ADJUANI, ANEU, APTT #### [address] [address] Platelet mean volume (Bld) [Entitic vol] 8.3 fL Normal 6.6-10.5 Count Includes [facility] ([place] Comment on above: Performed By: #### C BC, ADIFF, ANEU, APTT #### [address] [address] Platelets (Bld) [#/Vol] 276 10 3/mcL Normal 150-450 Count Includes [facility] ([place] Comment on above: Performed By: #### C BC, ADJUANI, ANEU, APTT #### [address] [address] RBC (Bld) [#/Vol] 4.12 10 6/mcL Normal 4.10-5.30 [facility] ([place]) Comment on above: Performed By: #### C BC, ADJUANI, ANEU, APTT #### [address] [address] WBC (Bld) [#/Vol] 4.40 10 3/mcL Low 4.50-10.80 [facility] ([place]) Comment on above: Performed By: #### C MECHELLE VIRGEN, ANEU, APTT #### [address] [address] Erythrocyte distribution width (RBC) [Ratio] 23.9 % High 11.5-15.5 Count Includes [facility] ([place] Comment on above: Performed By: #### C BCMECHELLE, ANEU #### [address] [address] Hematocrit (Bld) [Volume fraction] 34.4 % Normal 34.0-46.0 Count Includes [facility] ([place] Comment on above: Performed By: #### C MECHELLE VIRGEN, ANEU #### [address] [address] Hemoglobin (Bld) [Mass/Vol] 10.9 G/dL Low 12.0-16.0 Count Includes [facility] ([place] Comment on above: Performed By: #### C BC, MECHELLE, ANEU #### [address] [address] MCH (RBC) [Entitic mass] 25.2 pg Low 27.0-33.0 Count Includes [facility] ([place] Comment on above: Performed By: #### MECHELLE SEVERINO ANEU #### [address] [address] MCHC (RBC) [Mass/Vol] 31.6 G/dL Low 32.0-36.0 [facility] ([place]) Comment on above: Performed By: #### C MECHELLE VIRGEN, ANEU #### [address] [address] MCV (RBC) [Entitic vol] 79.9 fL Low 80.0-99.0 [facility] ([place]) Comment on above: Performed By: #### MECHELLE SEVERINO ANEU #### [address] [address] Platelet mean volume (Bld) [Entitic vol] 8.7 fL Normal 6.6-10.5 Count Includes [facility] ([place] Comment on above: Performed By: #### C MECHELLE VIRGEN, ANEU #### [address] [address] Platelets (Bld) [#/Vol] 293 10 3/mcL Normal 150-450 Count Includes [facility] ([place] Comment on above: Performed By: #### C MECHELLE VIRGEN, ANEU #### [address] [address] RBC (Bld) [#/Vol] 4.31 10 6/mcL Normal 4.10-5.30 [facility] ([place]) Comment on above: Performed By: #### C MECHELLE VIRGEN, ANEU #### [address] [address] WBC (Bld) [#/Vol] 5.60 10 3/mcL Normal 4.50-10.80 [facility] ([place]) Comment on above: Performed By: #### MECHELLE SEVERINO, ANEU #### [address] [address] Erythrocyte distribution width (RBC) [Ratio] 23.5 % High 11.5-15.5 Count Includes [facility] ([place] Comment on above: Performed By: #### C MECHELLE VIRGEN ANEU, APTT #### [address] [address] Hematocrit (Bld) [Volume fraction] 36.0 % Normal 34.0-46.0 Count Includes [facility] ([place]) Comment on above: Performed By: #### C BC, MECHELLE ANEU, APTT #### [address] [address] Hemoglobin (Bld) [Mass/Vol] 11.1 G/dL Low 12.0-16.0 Count Includes [facility] ([place]) Comment on above: Performed By: #### C MECHELLE VIRGEN ANEU, APTT #### [address] [address] MCH (RBC) [Entitic mass] 24.9 pg Low 27.0-33.0 Count Includes [facility] ([place] Comment on above: Performed By: #### C MECHELLE VIRGEN, ANEU, APTT #### [address] [address] MCHC (RBC) [Mass/Vol] 30.8 G/dL Low 32.0-36.0 [facility] ([place]) Comment on above: Performed By: #### C BC, ADJUANI, ANEU, APTT #### [address] [address] MCV (RBC) [Entitic vol] 80.9 fL Normal 80.0-99.0 [facility] ([place]) Comment on above: Performed By: #### C BC, MECHELLE, ANEU, APTT #### [address] [address] Platelet mean volume (Bld) [Entitic vol] 8.5 fL Normal 6.6-10.5 Count Includes [facility] ([place] Comment on above: Performed By: #### C BC, ADJUANI, ANEU, APTT #### [place] [phone] Platelets (Bld) [#/Vol] 307 10 3/mcL Normal 150-450 Count Includes [facility] ([place]) Comment on above: Performed By: #### C BC, ADIFF ANEU, APTT #### [place] [address] RBC (Bld) [#/Vol] 4.45 10 6/mcL Normal 4.10-5.30 [facility] ([place]) Comment on above: Performed By: #### C BC, ADIFF ANEU, APTT #### [place] [phone] WBC (Bld) [#/Vol] 6.10 10 3/mcL Normal 4.50-10.80 [facility] ([place]) Comment on above: Performed By: #### C BC ADJUANI ANEU, APTT #### [place] [address] IR IVC FILTER PLACEMENT W/ IDEon 05-02-2019 IR IVC FILTER PLACEMENT W/GUIDE ORIGINAL Images acquired, not reported on this accession number. Normal [facility]) MGon 05-02-2019 Magnesium [Mass/Vol] 2.2 mg/dL Normal 1.6-2.4 [facility] ([place]) Comment on above: Performed By: #### C BCMECHELLE ANEU, APTT #### [place] [address] TROPIon 05-02-2019 Troponin I.cardiac [Mass/Vol] ng/mL Normal 0.000-0.040 [facility]) Comment on above: Result Comment: Trop onin I reference ranges (02/03/14): 0.00-0.040 ng/mL Negative and non-diagnostic. >0.040 ng/mL Consistent with cardiac damage, increased clinical risk and possibility of myocardial infarction. Serial measurements, a rise & fall in test results, clinical history, appropriate symptoms and/or ECG changes may help assess possibility of OR. *Other non-acute coronary syndrome conditions such as CHF, myocarditis, pulmonary emboli, sepsis and cardiac surgery could result in myocardial damage and increased troponin levels. Performed By: #### T SH, TROPI #### [place] [address] TSHon 05-02-2019 TSH Qn 5.500 mcIU/mL High 0.360-3.740 Count Includes [facility] ([place] Comment on above: Performed By: #### T JULIA MIRANDA #### [facility] [address] [place] [address] (serum)on 12-09-19 18 Test (serum) Negative Normal Negative [facility] Comment on above: Performed By: #### U MIC1 ####[place] [address] Acetm Level W/ doseon 2016 Acetaminophen mass conc 0.0 ug/mL Low 10.0-30.0 C [facility] Comment on above: Performed By: #### A CETM ####[place] [address] Last dose at [place] Normal [facility] Comment on above: Performed By: #### A CETM ####[address] [address] Performed By: #### S ALIC ####[address] [address] CBC w/Auto Differentialon Anemia [place] Normal [facility] Comment on above: Performed By: #### C BC ####[address] [address] Anisocytosis presence [place] Normal [facility] Comment on above: Performed By: #### C BC ####[address] [address] Basophils Abs. # 0.0 K/uL Normal 0.0-0.1 [facility] Comment on above: Performed By: #### C BC ####[place] [address] Basophils/100 WBC Auto (Bld) 1.1 % High 0.2-1.0 [facility] Comment on above: Performed By: #### C BC ####[address] [address] Basophils/100 WBC Auto (Bld) [place] Normal [facility] Comment on above: Performed By: #### C BC ####[address] [address] Bosophillia # [place] Normal [facility] Comment on above: Performed By: #### C BC ####[address] [address] Eosinophils [place] Normal [facility] Comment on above: Performed By: #### C BC ####[address] [address] Eosinophils 0.0 10*3/uL Normal 0.0-0.2 [facility] Comment on above: Performed By: #### C BC ####[address] [address] Eosinophils/100 leukocytes [place] Normal [facility] Comment on above: Performed By: #### C BC ####[address] [address] Eosinophils/100 leukocytes 0.6 % Low 0.9-2.9 [facility] Comment on above: Performed By: #### C BC ####[address] [address] Erythocytosis [place] Normal [facility] Comment on above: Performed By: #### C BC ####[address] [address] Erythrocyte distribution width Auto Ratio (RBC) 13.9 % Normal 11.5-14.5 [facility] Comment on above: Performed By: #### C BC ####[address] [address] Erythrocytes (RBC) 4.35 10*6/uL Normal 3.83-5.19 [facility] Comment on above: Performed By: #### C BC ####[address] [address] Hematocrit (HCT) 41.7 % Normal 33.4-46.0 [facility] Comment on above: Performed By: #### C BC ####[address] [address] Hemoglobin mass conc (Bld) 14.1 g/dL High 11.1-13.7 [facility] Comment on above: Performed By: #### C BC ####[address] [address] Hypochromia [place] Normal [facility] Comment on above: Performed By: #### C BC ####[place] [id number] Large Platelets [place] Normal [facility] Comment on above: Performed By: #### C BC ####[address] [address] Leukocytosis [place] Normal [facility] Comment on above: Performed By: #### C BC ####[address] [address] Leukopenia [place] Normal [facility] Comment on above: Performed By: #### C BC ####[address] [address] Lymphocytes [place] Normal [facility] Comment on above: Performed By: #### C BC ####[address] [address] Lymphocytes 1.1 10*3/uL Low 1.3-2.9 [facility] Comment on above: Performed By: #### C BC ####[address] [address] Lymphocytes/100 leukocytes 24.2 % Normal 17.0-45.5 [facility] Comment on above: Performed By: #### C BC ####[address] [address] Lymphocytes/100 leukocytes [place] Normal [facility] Comment on above: Performed By: #### C BC ####[address] [address] Macrocytosis [place] Normal [facility] Comment on above: Performed By: #### C BC ####[address] [address] MCH 32.3 pg High 27.0-31.0 [facility] Comment on above: Performed By: #### C BC ####[place] [id number] MCHC mass conc (RBC) 33.8 g/dL Normal 33.0-37.0 [facility] Comment on above: Performed By: #### C BC ####[address] [address] MCV 95.7 fL Normal 81.0-99.0 [facility] Comment on above: Performed By: #### C BC ####[address] [address] Microcytosis [place] Normal [facility] Comment on above: Performed By: #### C BC ####[address] [address] Monocytes 0.3 10*3/uL Normal 0.3-0.8 [facility] Comment on above: Performed By: #### C BC ####[address] [address] Monocytes/100 leukocytes 6.1 % Normal 5.5-11.7 [facility] Comment on above: Performed By: #### C BC ####[address] [address] Monocytosis % [place] Normal [facility] Comment on above: Performed By: #### C BC ####[address] [address] Neutropenia # [place] Normal [facility] Comment on above: Performed By: #### C BC ####[address] [address] Neutropenia % [place] Normal [facility] Comment on above: Performed By: #### C BC ####[address] [address] Neutrophilia % [place] Normal [facility] Comment on above: Performed By: #### C BC ####[address] [address] Neutrophils [place] Normal [facility] Comment on above: Performed By: #### C BC ####[address] [address] Neutrophils Abs. # 3.0 K/uL Normal 2.2-4.8 [facility] Comment on above: Performed By: #### C BC ####[address] [address] Neutrophils/100 WBC Auto (Bld) 68.0 % High 43.0-65.0 [facility] Comment on above: Performed By: #### C BC ####[address] [address] NRBC % 0.0 % Normal [facility] Comment on above: Performed By: #### C BC ####[address] [address] NRBC Abs. # 0.0 K/uL Normal [facility] Comment on above: Performed By: #### C BC ####[address] [address] Pancytopenia [place] Normal [facility] Comment on above: Performed By: #### C BC ####[address] [address] Platelet mean volume (PMV) 8.6 fL Normal 7.4-10.4 [facility] Comment on above: Performed By: #### C BC ####[address] [address] Platelets 235 10*3/uL Normal 148-402 [facility] Comment on above: Performed By: #### C BC ####[address] [address] Poikilocytosis [place] Normal [facility] Comment on above: Performed By: #### C BC ####[address] [address] Small Platelets [place] Normal [facility] Comment on above: Performed By: #### C BC ####[address] [address] Thrombocytopenia [place] Normal [facility] Comment on above: Performed By: #### C BC ####[address] [address] Thrombocytopenia. [place] Normal [facility] Comment on above: Performed By: #### C BC ####[address] [address] Thrombocytosis [place] Normal [facility] Comment on above: Performed By: #### C BC ####[address] [address] WBC (Leukocytes) 4.4 10*3/uL Normal 3.6-10.8 [facility] Comment on above: Performed By: #### C BC ####[address] [address] Comprehensive Metabolic Pane carlos 03-31-2017 Alanine aminotransferase (ALT) 26 U/L Normal 13-66 [facility] Comment on above: Performed By: #### C MP ####[address] [address] Albumin 4.5 g/dL Normal 3.4-5.0 [facility] Comment on above: Performed By: #### C MP ####[address] [address] Albumin/Globulin Ratio 1.4 {ratio} Normal 1.1-2.5 [facility] Comment on above: Performed By: #### C MP ####[address] [address] Alkaline phosphatase (ALP) 50 U/L Low 54-112 [facility] Comment on above: Performed By: #### C MP ####[address] [address] Anion gap 14.3 mmol/L Normal 8.0-16.0 [facility] Comment on above: Result Comment: CO RRECTED REPORT: Previous result was 15.1 at 12:14 on 03/31/17 Performed By: #### C MP ####[address] [address] Aspartate aminotransferase (AST) 15 U/L Normal 3-39 [facility] Comment on above: Performed By: #### C MP ####[address] [address] Bilirubin Ql (U) 0.48 mg/dL Normal 0.00-0.99 [facility] Comment on above: Performed By: #### C MP ####[address] [address] BUN/Creatinine Ratio 9 mg/mg Normal 6-20 [facility] Comment on above: Performed By: #### C MP ####[address] [address] Calcium 9.1 mg/dL Normal 8.2-10.0 [facility] Comment on above: Performed By: #### C MP ####[address] [address] Chloride 106 mmol/L Normal 94-110 [facility] Comment on above: Performed By: #### C MP ####[address] [address] CO2 27 mmol/L Normal 21-34 [facility] Comment on above: Performed By: #### C MP ####[address] [address] Creatinine 0.70 mg/dL Normal 0.51-0.95 [facility] Comment on above: Performed By: #### C MP ####[address] [address] eGFR (black) mL/min/{1.73_m2} Normal >60 [facility] Comment on above: Result Comment: Inclusion Paraeducator kelly Kidney Disease less than 60 mL/min/1.73 [id number] Failure less than 15 mL/min/1.73 [id number] estimated GFR by age:20-29 years 116 mL/min/1.73 m2 Performed By: #### C MP ####[address] [address] eGFR (non-black) mL/min/{1.73_m2} Normal >60 [facility] Comment on above: Performed By: #### C MP ####[address] [address] Globulin 3.2 g/dL Normal 1.5-4.5 [facility] Comment on above: Performed By: #### C MP ####[address] [address] Glucose mass conc 94 mg/dL Normal 65-100 [facility] Comment on above: Performed By: #### C MP ####[address] [address] Potassium molar conc 3.3 mmol/L Normal 3.3-5.1 [facility] Comment on above: Performed By: #### C MP ####[address] [address] Protein 7.7 g/dL Normal 6.1-8.2 [facility] Comment on above: Performed By: #### C MP ####[address] [address] Sodium 144 mmol/L Normal 132-145 [facility] Comment on above: Performed By: #### C MP ####[address] [address] Urea nitrogen 6.2 mg/dL Normal 3.2-26.9 [facility] Comment on above: Performed By: #### C MP ####[address] [address] EMERGENCY DEPARTMENTon 03-31 [place] [address] HEALTH INFORMATION MANAGEMENT EMERGENCY DEPARTMENT : [phone] Signed Patient: PRANEETH PORRAS Acct:[id number] MRUN: [id number] : 1990 Sex: F Loc: ED ADM [...] Supervision by:: Nurses Jonnathan senior called: No Photographer News office called R/T patient behavior: No Ferriday slip/Writ of residential: No - Behavior Assessment Patient Appearance: Disheveled [...] ideation - Skin Skin Color: Present: Normal, Ferriday Skin exam: Present: warm, dry - Vital [...] suicidal ideation and possible admission. Mental Health [facility] - Lab Data Result diagrams: 03/31/17 11:53 [...] (43.0-65.0) % Lymph % 24.2 (17.0-45.5) % [place] % 6.1 (5.5-11.7) % Eos % 0.6 [...] 9 (6-20) Glucose 94 (65-100) mg/dL Specific Mcfall 1.020 (1.015-1.025) Calcium 9.1 (8.2-10.0) mg/dL Total [...] % (43.0-65.0) % Lymph % (17.0-45.5) % [place] % (5.5-11.7) % Eos % (0.9-2.9) % [...] BUN/Creatinine Ratio (6-20) Glucose (65-100) mg/dL Specific Mcfall (1.015-1.025) Calcium (8.2-10.0) mg/dL Total Bilirubin (0.00-0.99) [...] were both negative. The patient evaluated by [facility] Behavioral health and plan is to [...] Agreed With?: Yes - Dictation Amendments/Documentat ion: [email or web address] Document Only Electronically Generated By: DANIAL ENRIQUEZ DO Generated Date/Time: 03/31/17 1314 Electronically Signed By: DANIAL ENRIQUEZ DO Signed Date/Time 03/31/17 1648 Co Signed Electronically By: Co Signed Date/Time: CC: TAMI HALL ; PHYSICIAN, UNASSIGNED Normal [facility] Ethanol (Medical)on 03-31-20 17 Ethanol mg/dL Normal 0.0-0.0 [facility] Comment on above: Performed By: #### A LC ####[address] [address] (Urine)on 03-31-20 17 HCG ( test) Ql (U) Negative Normal Negative [facility] Comment on above: Performed By: #### U MIC1 ####[address] [address] Salic Level W/ doseon 2016 Salicylate <2.8 Normal 2.8-20.0 [facility] Comment on above: Performed By: #### S ALIBryan ####[address] [address] Urine Drug Screeningon 03-31 Amphetamines Negative [facility] Comment on above: Order Comment: Drug Screen Comment No Result Comment: cuto ff 1000 ng/mL Performed By: #### U MIC1 ####[address] [address] Barbiturates Negative [facility] Comment on above: Order Comment: Drug Screen Comment No Result Comment: cuto ff 200 ng/mL Performed By: #### U MIC1 ####[address] [address] Benzodiazepines Negative [facility] Comment on above: Order Comment: Drug Screen Comment No Result Comment: cuto ff 200 ng/mL Performed By: #### U MIC1 ####[address] [address] Cocaine Negative [facility] Comment on above: Order Comment: Drug Screen Comment No Result Comment: cuto ff 300 ng/mL Performed By: #### U MIC1 ####[address] [address] Opiates Negative [facility] Comment on above: Order Comment: Drug Screen Comment No Result Comment: cuto ff 300 ng/mL Performed By: #### U MIC1 ####[place] [address] pH 5.0 Normal 5.0-8.0 [facility] Comment on above: Order Comment: Drug Screen Comment No Performed By: #### U MIC1 ####[place] [address] Phencyclidine Negative Normal [facility] Comment on above: Order Comment: Drug Screen Comment No Result Comment: cuto ff 25 ng/mL Performed By: #### U MIC1 ####[place] [address] Specific Mcfall 1.020 Normal 1.015-1.025 [facility] Comment on above: Order Comment: Drug Screen Comment No Performed By: #### U MIC1 ####[place] [address] THC Positive Abnormal [facility] Comment on above: Order Comment: Drug Screen Comment No Result Comment: cuto ff 50 ng/mL Performed By: #### U MIC1 ####[place] [address] - - Normal [facility] Comment on above: Order Comment: Drug Screen Comment No Result Comment: .Albert linder Screen Comment:This assay provides a preliminary unconfirmed analytical testresult that may be suitable for the clinical management of patientsin certain situations. Some enrk-yfm-otnagil medications, aswell as adulterants, may cause inaccurate results. Screen onlytesting does not meet the CAP Forensic Urine Drug TestingProgram requirements as a forensic urine drug test for workplacetesting. . Performed By: #### U MIC1 ####[place] [address] CT BRAIN WOon 03-28-2017 CT BRAIN WO [...] Electronically Signed by Kunal Maria03/28/2017 06:56 Normal [facility] EMERGENCY DEPARTMENTon 03-28 EMERGENCY DEPARTMENT [place] [id number] HEALTH INFORMATION MANAGEMENT EMERGENCY DEPARTMENT : [phone] Signed Patient: PRANEETH PORRAS Acct:[id number] MRUN: [id number] : 1990 Sex: F Loc: ED ADM [...] mood - Skin Skin Color: Present: Normal, Ferriday Skin exam: Present: warm, dry - Expanded [...] bloody (Clear) Urine pH 5 Ur Specific Mcfall 1.025 (1.015-1.025) Urine Protein 1+ A (Negative) [...] 4 mg PO Q8H PRN #20 tab.rapdis 10/30/17 [Rx] Medications Discontinued Medications Ciprofloxacin HCl (Cipro [...] follow-up PCP 7-10 days for recheck urine "At least one of your blood pressure readings in the Emergency Department visit today were above 120/80. You need to follow up with your Primary Care Physician/Family Doctor within the next week about your blood pressure." OARRS Report Reviewed: No Home Medications: Ambulatory [...] Agreed With?: Yes - Dictation Amendments/Documentat ion: [email or web address] Document Only Electronically Generated By: GISELA HENAO PA-C Generated Date/Time: 03/27/172107 Electronically Signed By: GISELA HENAO PA-C Signed Date/Time 03/28/17 1357 Co Signed Electronically By: Co Signed Date/Time: 03/28/17190003/28/171900 CC: TAMI HALL Normal [facility] (Urine)on 03-27-20 HCG ( test) Ql (U) Negative Normal Negative [facility] Comment on above: Performed By: #### P REGU ####[address] [address] UA w/reflex cultureon 2016 Appearance bloody Normal Clear [facility] Comment on above: Performed By: #### U ARC ####[address] [address] Bilirubin 1+ Abnormal Negative [facility] Comment on above: Result Comment: ?Met abolites of etodolac or high concentration of urobilinogen may causefalse positive results. Correlate clinically.? Performed By: #### U ARC ####[address] [address] Blood 250 Abnormal Negative [facility] Comment on above: Performed By: #### U ARC ####[address] [address] Collection Type [place]EL[place] TURNER Normal [facility] Comment on above: Performed By: #### U ARC ####[address] [address] Color Red. Abnormal Yellow [facility] Comment on above: Result Comment: CO RRECTED REPORT: Previous result was orange at 20:53 on 03/27/17 Performed By: #### U ARC ####[address] [address] Glucose NORMAL Normal Negative [facility] Comment on above: Performed By: #### U ARC ####[address] [address] Ketones 1+ Abnormal Negative [facility] Comment on above: Performed By: #### U ARC ####[address] [address] Leukocytes Esterase 2+ Abnormal Negative [facility] Comment on above: Performed By: #### U ARC ####[place] [address] Nitrites Positive Abnormal Negative [facility] Comment on above: Result Comment: Fals e-positive readings may be produced by medications that colors the urine red or which turns the red in an acid medium. .CORRECTED REPORT: Previous result was POSITIVE at 20:53 on 03/27/17 Performed By: #### U ARC ####[address] [address] pH 5 Normal [facility] Comment on above: Performed By: #### U ARC ####[address] [address] Protein 1+ Abnormal Negative [facility] Comment on above: Performed By: #### U ARC ####[place] [address] Specific Mcfall 1.025 Normal 1.015-1.025 [facility] Comment on above: Performed By: #### U ARC ####[address] [address] Urobilinogen 1 mg/dL Normal Normal-1.0 [facility] Comment on above: Performed By: #### U ARC ####[place] [address] Urine Microscopicon 10-30-20 17 Bacteria 1+ /hpf Normal 0 - 1+ [facility] Comment on above: Performed By: #### U MIC1 ####[address] [address] Casts [place] Normal [facility] Comment on above: Performed By: #### U MIC1 ####[place] [address] Casts. [place] TURNER Normal [facility] Comment on above: Performed By: #### U MIC1 ####[address] [address] Crystals [place]URNER Normal [facility] Comment on above: Performed By: #### U MIC1 ####[address] [address] Crystals. [place]CEL[place] TURNER Normal [facility] Comment on above: Performed By: #### U MIC1 ####[address] [address] Epithelial Cells 3-6 Normal 0 - 6 [facility] Comment on above: Performed By: #### U MIC1 ####[address] [address] INR Coag RelTime (Bld) TNTC Normal 0 - 2 [facility] Comment on above: Performed By: #### U MIC1 ####[address] [address] Mucus [place]UR[place] Normal [facility] Comment on above: Performed By: #### U MIC1 ####[address] [address] Trichomonas [place] Normal [facility] Comment on above: Performed By: #### U MIC1 ####[address] [address] WBC TNTC Normal 0 - 6 [facility] Comment on above: Performed By: #### U MIC1 ####[address] [address] Yeast [place]UR[place] Normal [facility] Comment on above: Performed By: #### U MIC1 ####[address] [address] Other [place]NER Normal [facility] Comment on above: Performed By: #### U MIC1 ####[address] [address] Vital Signs Date Time Vital Sign Value Performing Clinician Facility 03-11-2025 18:05-0400 Body height 160.02 cm No Primary Care Physician [facility] 03-11-2025 18:05-0400 Body mass index (BMI) [Ratio] 25.4 kg/m2 No Primary Care Physician [facility] 03-11-2025 18:05-0400 Body temperature 99.2 [degF] No Primary Care Physician [facility] 03-11-2025 18:05-0400 Body weight 65.18 kg No Primary Care Physician [facility] 03-11-2025 18:05-0400 Diastolic blood pressure 89 mm[Hg] No Primary Care Physician [facility] 03-11-2025 18:05-0400 Heart rate 120 /min No Primary Care Physician [facility] 03-11-2025 18:05-0400 Respiratory rate 20 /min No Primary Care Physician [facility] 03-11-2025 18:05-0400 SaO2% (BldA) [Mass fraction] 100 % No Primary Care Physician [facility] 03-11-2025 18:05-0400 Systolic blood pressure 140 mm[Hg] No Primary Care Physician [facility] 02-02-2025 12:26-0400 Body temperature 97.9 [degF] No Primary Care Physician [facility] 02-02-2025 12:26-0400 Diastolic blood pressure 78 mm[Hg] No Primary Care Physician [facility] 02-02-2025 12:26-0400 Heart rate 61 /min No Primary Care Physician [facility] 02-02-2025 12:26-0400 Respiratory rate 18 /min No Primary Care Physician [facility] 02-02-2025 12:26-0400 SaO2% (BldA) [Mass fraction] 100 % No Primary Care Physician [facility] 02-02-2025 12:26-0400 Systolic blood pressure 140 mm[Hg] No Primary Care Physician [facility] 02-02-2025 10:56-0400 Body height 160.02 cm No Primary Care Physician [facility] 02-02-2025 10:56-0400 Body mass index (BMI) [Ratio] 24 kg/m2 No Primary Care Physician [facility] 02-02-2025 10:56-0400 Body weight 61.41 kg No Primary Care Physician [facility] 01-31-2025 00:07-0400 Body temperature 97.6 [degF] No Primary Care Physician [facility] 01-31-2025 00:07-0400 Diastolic blood pressure 82 mm[Hg] No Primary Care Physician [facility] 01-31-2025 00:07-0400 Heart rate 95 /min No Primary Care Physician [facility] 01-31-2025 00:07-0400 Respiratory rate 18 /min No Primary Care Physician [facility] 01-31-2025 00:07-0400 SaO2% (BldA) [Mass fraction] 100 % No Primary Care Physician [facility] 01-31-2025 00:07-0400 Systolic blood pressure 130 mm[Hg] No Primary Care Physician [facility] 01-30-2025 22:04-0400 Body height 160.02 cm No Primary Care Physician [facility] 01-30-2025 22:04-0400 Body mass index (BMI) [Ratio] 24.3 kg/m2 No Primary Care Physician [facility] 01-30-2025 22:04-0400 Body weight 62.19 kg No Primary Care Physician [facility] 12-24-2024 00:00-0400 Heart rate 86 /min No Primary Care Physician [facility] 12-23-2024 22:29-0400 Body height 161.29 cm No Primary Care Physician [facility] 12-23-2024 22:29-0400 Body mass index (BMI) [Ratio] 22.1 kg/m2 No Primary Care Physician [facility] 12-23-2024 22:29-0400 Body temperature 97.5 [degF] No Primary Care Physician [facility] 12-23-2024 22:29-0400 Body weight 57.47 kg No Primary Care Physician [facility] 12-23-2024 22:29-0400 Diastolic blood pressure 88 mm[Hg] No Primary Care Physician [facility] 12-23-2024 22:29-0400 Respiratory rate 18 /min No Primary Care Physician [facility] 12-23-2024 22:29-0400 SaO2% (BldA) [Mass fraction] 100 % No Primary Care Physician [facility] 12-23-2024 22:29-0400 Systolic blood pressure 147 mm[Hg] No Primary Care Physician [facility] 09-24-2024 06:32-0400 Body height 160.02 cm No Primary Care Physician [facility] 09-24-2024 06:32-0400 Body mass index (BMI) [Ratio] 23 kg/m2 No Primary Care Physician [facility] 09-24-2024 06:32-0400 Body temperature 97.5 [degF] No Primary Care Physician [facility] 09-24-2024 06:32-0400 Body weight 58.9 kg No Primary Care Physician [facility] 09-24-2024 06:32-0400 Diastolic blood pressure 98 mm[Hg] No Primary Care Physician [facility] 09-24-2024 06:32-0400 Heart rate 68 /min No Primary Care Physician [facility] 09-24-2024 06:32-0400 Respiratory rate 18 /min No Primary Care Physician [facility] 09-24-2024 06:32-0400 SaO2% (BldA) [Mass fraction] 100 % No Primary Care Physician [facility] 09-24-2024 06:32-0400 Systolic blood pressure 144 mm[Hg] No Primary Care Physician [facility] 09-08-2024 13:24-0400 Body mass index (BMI) [Ratio] 22.46 kg/m2 Krislyn Aberegg PA Work Phone: [facility] 09-08-2024 13:24-0400 Body temperature 98.8 [degF] Krislyn Aberegg PA Work Phone: [facility] 09-08-2024 13:24-0400 Body weight 57.5 kg Krislyn Aberegg PA Work Phone: [facility] 09-08-2024 13:24-0400 Diastolic blood pressure 61 mm[Hg] Krislyn Aberegg PA Work Phone: [facility] 09-08-2024 13:24-0400 Heart rate 80 /min Krislyn Aberegg PA Work Phone: [facility] 09-08-2024 13:24-0400 Respiratory rate 18 /min Krislyn Aberegg PA Work Phone: [facility] 09-08-2024 13:24-0400 SaO2% (BldA) [Mass fraction] 99 % Krislyn Aberegg PA Work Phone: [facility] 09-08-2024 13:24-0400 Systolic blood pressure 96 mm[Hg] Krislyn Aberegg PA Work Phone: [facility] 11-02-2023 14:45-0400 Body mass index (BMI) [Ratio] 21.71 kg/m2 Krislyn Aberegg PA Work Phone: [facility] 11-02-2023 14:45-0400 Body temperature 97.7 [degF] Krislyn Aberegg PA Work Phone: [facility] 11-02-2023 14:45-0400 Body weight 55.6 kg Krislyn Aberegg PA Work Phone: [facility] 11-02-2023 14:45-0400 Diastolic blood pressure 72 mm[Hg] Krislyn Aberegg PA Work Phone: [facility] 11-02-2023 14:45-0400 Heart rate 76 /min Krislyn Aberegg PA Work Phone: [facility] 11-02-2023 14:45-0400 Respiratory rate 16 /min Krislyn Aberegg PA Work Phone: [facility] 11-02-2023 14:45-0400 SaO2% (BldA) [Mass fraction] 97 % Krislyn Aberegg PA Work Phone: [facility] 11-02-2023 14:45-0400 Systolic blood pressure 122 mm[Hg] Krislyn Aberegg PA Work Phone: [facility] 11-23-2022 05:10-0400 Body temperature 98.29 [degF] Shahzad Walker MD Work Phone: [facility] 11-23-2022 05:10-0400 Diastolic blood pressure 58 mm[Hg] Shahzad Walker MD Work Phone: [facility] 11-23-2022 05:10-0400 Heart rate 68 /min Shahzad Walker MD Work Phone: [facility] 11-23-2022 05:10-0400 Respiratory rate 19 /min Shahzad Walker MD Work Phone: [facility] 11-23-2022 05:10-0400 SaO2% (BldA) [Mass fraction] 100 % Shahzad Walker MD Work Phone: [facility] 11-23-2022 05:10-0400 Systolic blood pressure 110 mm[Hg] Shahzad Walker MD Work Phone: [facility] 09-26-2022 13:19-0400 Heart rate 64 /min Linda Whitehead MD Work Phone: [facility] 09-26-2022 13:19-0400 SaO2% (BldA) [Mass fraction] 98 % Linda Whitehead MD Work Phone: [facility] 09-26-2022 12:49-0400 Diastolic blood pressure 77 mm[Hg] Linda Whitehead MD Work Phone: [facility] 09-26-2022 12:49-0400 Systolic blood pressure 111 mm[Hg] Linda Whitehead MD Work Phone: [facility] 09-26-2022 12:09-0400 Body height 160 cm Linda Whitehead MD Work Phone: [phone] [address] 09-26-2022 12:09-0400 Body mass index (BMI) [Ratio] 26.57 kg/m2 Linda Whitehead MD Work Phone: [phone] [place] [address] 09-26-2022 12:09-0400 Body temperature 99 [degF] Linda Whitehead MD Work Phone: [facility] 09-26-2022 12:09-0400 Body weight 68.04 kg Linda Whitehead MD Work Phone: [facility] 09-26-2022 12:09-0400 Respiratory rate 18 /min Linda Whitehead MD Work Phone: [facility] 08-07-2021 17:35-0500 Body temperature 97.39 [degF] Osbaldo Teran MD [facility] 08-07-2021 17:35-0500 Body weight 53.52 kg Osbaldo Teran MD [facility] 08-07-2021 17:35-0500 Diastolic blood pressure 90 mm[Hg] Osbaldo Teran MD [facility] 08-07-2021 17:35-0500 Heart rate 94 /min Osblado Teran MD [facility] 08-07-2021 17:35-0500 Respiratory rate 18 /min Osbaldo Teran MD [facility] 08-07-2021 17:35-0500 SaO2% (BldA) [Mass fraction] 99 % Osbaldo Teran MD [facility] 08-07-2021 17:35-0500 Systolic blood pressure 124 mm[Hg] Osbaldo Teran MD [facility] Encounters Encounter Date Encounter Type Care Provider Facility Start: 04-08-2025 ambulatory No Primary Car e Physician Facility:[facility] Start: 04-07-2025 End: 04-07-2025 ambulatory No Primary Care Physician Facility:[facility] Start: 04-03-2025 ambulatory No Primary Car e Physician Facility:[facility] Start: 04-03-2025 End: 04-03-2025 ambulatory No Primary Care Physician Facility:[facility] Start: 03-29-2025 End: 03-29-2025 Emergency department patient visit No Primary Care Physician Facility:[facility] Start: 03-11-2025 End: 03-11-2025 Emergency department patient visit Dr. Fran Nice MD -Emergency Department Work Phone: Start: 02-02-2025 End: 02-02-2025 Emergency department patient visit No Primary Care Physician -Emergency Department Work Phone: Start: 01-30-2025 End: 01-31-2025 Emergency department patient visit No Primary Care Physician -Emergency Department Work Phone: Start: 12-23-2024 End: 12-24-2024 Emergency department patient visit No Primary Care Physician -Emergency Department Work Phone: Start: 09-24-2024 End: 09-24-2024 Emergency department patient visit No Primary Care Physician -Emergency Department Work Phone: Start: 09-08-2024 End: 09-08-2024 ambulatory CANDE BASSEM LUCIANO III Facility:[facility] Start: 09-08-2024 End: 09-08-2024 Patient encounter procedure Miller BENITES Work Phone: [facility] Comment on above: Nasal sore (Primary Dx); Acute otitis externa of right ear, unspecified type Start: 08-14-2024 ambulatory [facility] Start: 05-20-2024 End: 05-20-2024 Emergency department patient visit No Primary Care Physician Facility:[facility] Start: 04-15-2024 End: 04-15-2024 Emergency department patient visit No Primary Care Physician Facility:[facility] Start: 11-03-2023 Telephone encounter Elise Jordan FOSTER Work Phone: [facility] Comment on above: Results Start: 11-02-2023 End: 11-02-2023 ambulatory CANDE YOUNGADDEN III Facility:[facility] Start: 11-02-2023 End: 11-02-2023 Patient encounter procedure Miller BENITES Work Phone: [facility] Comment on above: Nausea and vomiting, unspecified vomiting type (Primary Dx); Dysuria; Exposure to strep throat Start: 10-05-2023 End: 10-05-2023 Emergency [facility] Start: 02-09-2023 ambulatory THANIA VILLEGAS [facility] Start: 01-23-2023 End: 01-24-2023 Emergency department patient visit THANIA [facility] Start: 11-23-2022 Emergency department patient visit SHAHZAD WALKER [facility] Start: 11-23-2022 End: 11-23-2022 Emergency department patient visit SHAHZAD WALKER [facility] Start: 11-23-2022 End: 11-23-2022 Emergency department patient visit Shahzad Walker MD Work Phone: [facility] Comment on above: Acute cystitis with hematuria (Primary Dx) Start: 11-16-2022 End: 11-16-2022 ambulatory THANIA [facility] Start: 11-03-2022 ambulatory THANIA GABRIELE [facility] Start: 10-26-2022 ambulatory THANIA GABRIELE [facility] Start: 10-20-2022 End: 10-20-2022 ambulatory THANIA [facility] Start: 10-10-2022 End: 10-10-2022 ambulatory JEANIE HUNTER [facility] Start: 09-26-2022 End: 09-26-2022 Emergency department patient visit LINDA WHITEHEAD [facility] Start: 09-26-2022 End: 09-26-2022 Emergency department patient visit Linda Whitehaed MD Work Phone: [facility] Comment on above: Pelvic cramping (Luna rowan Dx) Start: 08-26-2021 End: 08-27-2021 Emergency department patient visit CECELIA Sherlyn ORTIZSUKUMARDEVAN [facility] Start: 08-16-2021 End: 08-17-2021 ambulatory JUSTINBRAD AMES [facility] Start: 08-16-2021 End: 08-16-2021 Subsequent hospital visit by physician [facility] Start: 08-08-2021 End: 08-13-2021 Evaluation and management of inpatient [facility] Start: 08-07-2021 End: 08-08-2021 Emergency department patient visit [facility] Start: 08-07-2021 End: 08-08-2021 Emergency department patient visit [facility] ED Comment on above: Depression with suic idal ideation (Primary Dx); Hypokalemia Start: 12-08-2017 End: 12-08-2017 Patient encounter HORTENCIA PEREZ Facility: Start: 03-31-2017 End: 04-01-2017 Emergency department patient visit UNASSIGNED PHYSICIAN Facility: Start: 03-27-2017 End: 03-27-2017 Emergency department patient visit GISELA HENAO Facility: Procedures Date Procedure Procedure Detail Performing Clinician Start: 03-11-2025 End: 03-11-2025 Polymerase chain reaction analysis No Primary Care Physician Start: 03-11-2025 End: 03-11-2025 Trichomonas vaginalis detection No Primary Care Physician Start: 02-02-2025 Urnls dip stick/tablet reagent auto microscopy No Primary Care Physician Start: 01-30-2025 X-ray of foot, three or more views No Primary Care Physician Start: 12-23-2024 End: 12-23-2024 Polymerase chain reaction analysis No Primary Care Physician Start: 11-02-2023 Urnls dip stick/tablet rgnt auto w/o microscopy Miller BENITES Work Phone: Start: 11-02-2023 STREP A MOLECULAR (POC) Miller BENITES Work Phone: Start: 11-23-2022 Ct abdomen & pelvis w/contrast material Shahzad Wakler MD Work Phone: Start: 11-23-2022 End: 11-23-2022 [...] nonobstetric real-time image complete Jeanie Hunter APRN [employer] Work Phone: Start: 09-26-2022 Comprehensive metabolic panel Jeanieyara Hunter APRN [employer] Work Phone: Start: 09-26-2022 End: 09-26-2022 Urine test visual color cmprsn meths Jeanie Elsa BIGGS [employer] Work Phone: Start: 08-16-2021 Antibody hiv-1&hiv-2 single result Justin Ames APRN - CALL CENTER DIRECTOR Work Phone: Start: 08-16-2021 Comprehensive metabolic panel Justin Ames APRN - CALL CENTER DIRECTOR Work Phone: Start: 08-16-2021 Urinalysis microscopic only Justin Ames APRN - CALL CENTER DIRECTOR Work Phone: Start: 08-16-2021 Urnls dip stick/tablet rgnt auto w/o microscopy Justin Ames APRN - CALL CENTER DIRECTOR Work Phone: Start: 08-07-2021 COVID-19, RAPID Osbaldo Teran MD Start: 08-07-2021 Ecg routine ecg w/least 12 lds w/i&r Mabel Long APRN - CALL CENTER DIRECTOR Work Phone: Start: 08-07-2021 Assay of acetaminophen Mabel Long LAMINATION BUILDER - CALL CENTER DIRECTOR Work Phone: Start: 08-07-2021 Assay of magnesium Mabel Long APR N - CALL CENTER DIRECTOR Work Phone: Start: 08-07-2021 Assay of salicylate Mabel Long APR N - CALL CENTER DIRECTOR Work Phone: Start: 08-07-2021 BASIC METABOLIC PANEL W/ REFLEX TO MG FOR LOW K Mabel Long LAMINATION BUILDER - CALL CENTER DIRECTOR Work Phone: Start: 08-07-2021 Urinalysis microscopic only Mabel Long LAMINATION BUILDER - CALL CENTER DIRECTOR Work Phone: Start: 08-07-2021 Urine test visual color cmprsn meths Mabel Long LAMINATION BUILDER - CALL CENTER DIRECTOR Work Phone: Plan of Treatment Date Care Activity Detail Author Start: 03-11-2025 [facility] Start: 02-02-2025 [facility] Start: 01-30-2025 [facility] Start: 01-30-2025 X-ray of foot, three or more views Foot min 3 Views [facility] Start: 01-30-2025 XR Foot GE 3 Views [facility] Start: 12-23-2024 Polymerase chain tyson ction analysis [facility] Start: 12-23-2024 [facility] Start: 12-23-2024 Chlamydia/Neisseria (PCR) Chla mydia/Neisseria (PCR) [facility] Start: 09-24-2024 [facility] Start: 01-28-2024 Covid-19 Vaccine ( season) Covid-19 Vaccine ( season) [facility] Start: 01-28-2024 Influenza vaccination [facility] Start: 10-11-2023 Depression screening using PHQ-9 (Patient Health Questionnaire 9) score DEPRESSION SCREENING [facility] Start: 05-29-2023 Behavioral Health Screening Behavioral Health Screening [facility] Start: 02-09-2023 End: 02-09-2023 Patient encounter procedure 02/09/2023 Appoint[place] [address] [place] [address] [facility] Start: 01-27-2023 Covid-19 Vaccine ( season) Covid-19 Vaccine ( season) [facility] Start: 01-27-2023 Influenza vaccinatio n given INFLUENZA VACCINE (Season Ended) [facility] Start: 11-24-2022 End: 11-24-2022 Patient encounter procedure 11/24/2022 Office Visit Obstetrics and Gynecology Mercedes Mccarthy APRN CALL CENTER DIRECTOR [address] [place] [address] [facility] Start: 01-17-2022 Screening for malign ant neoplasm of cervix Pap Testing [facility] Start: 2021 Screening for malign ant neoplasm of cervix HPV Testing [facility] Start: 01-27-2021 Influenza vaccination Flu vaccine (# 1) [facility] Start: 01-18-2020 Screening for malign ant neoplasm of cervix Cervical Cancer Screening [facility] Start: 2012 Screening for malign ant neoplasm of cervix PAP SMEAR [facility] Start: 2010 Hepatitis B Vaccine (1 of 3 - 19+ 3-dose series) Hepatitis B Vaccine (1 of 3 - 19+ 3-dose series) [facility] Start: 2010 Urine microalbumin profile DTaP,Tdap,Td Vaccine (1 - Tdap) [facility] Start: 2009 ANNUAL WELLNESS VISIT ANNUAL WELLNES S VISIT [facility] Start: 2009 Anxiety Screening Anxiety Screening [facility] Start: 2009 Depression Screening Depression Scre ening [facility] Start: 2009 Hepatitis C screening Hepatitis C Sc reening [facility] Start: 2009 HIV screening HIV Screening [facility] Start: 2003 Depression screening using PHQ-9 (Patient Health Questionnaire 9) score DEPRESSION SCREENING [facility] Start: 2002 Administration of diphtheria + tetanus + acellular pertussis vaccine DTAP/TDAP/TD VACCINE (1 - Tdap) [facility] Start: 1996 COVID-19 Vaccine (1) COVID-19 Vaccin e (1) [facility] Start: 1991 COVID-19 VACCINE (#1) COVID-19 VACCI NE (#1) [facility] Bacteria identified in Urine by Culture URINE CULTURE Microbiology Routine Nausea and vomiting, unspecified vomiting type Dysuria 11/02/2023 3:03 PM EDT [facility] Work Phone: End: 09-26-2022 Dark Green Top [facility] Comment on above: Once for 1 Occurrenc es starting 09/26/2022 until 09/26/2022, 1 completed End: 11-23-2022 Dark Green Top Dark Green Top Lab SO Once for 1 Occurrences starting 11/23/2022 until 11/23/2022, 1 completed [facility] Comment on above: Once for 1 Occurrenc es starting 11/23/2022 until 11/23/2022, 1 completed Dark Green Top Dark Green Top L ab SO 11/23/2022 1:19 AM EDT [facility] EKG 12 Lead EKG 12 Lead ECG STAT 08/07/2021 6:52 PM EST [facility] Work Phone: End: 09-26-2022 Gold Top [facility] Comment on above: Once for 1 Occurrenc es starting 09/26/2022 until 09/26/2022, 1 completed End: 11-23-2022 Gold Top Gold Top Lab SO Once for 1 Occurrences starting 11/23/2022 until 11/23/2022, 1 completed [facility] Comment on above: Once for 1 Occurrenc es starting 11/23/2022 until 11/23/2022, 1 completed Gold Top Gold Top Lab ASA P 11/23/2022 1:19 AM EDT [facility] End: 11-23-2022 Lavender Top Lavender Top Lab SO Once for 1 Occurrences starting 11/23/2022 until 11/23/2022, 1 completed [facility] Comment on above: Once for 1 Occurrenc es starting 11/23/2022 until 11/23/2022, 1 completed Lavender Top Lavender Top Lab SO 11/23/2022 1:19 AM EDT [facility] End: 09-26-2022 LIGHT BLUE TOP [facility] Comment on above: Once for 1 Occurrenc es starting 09/26/2022 until 09/26/2022, 1 completed End: 11-23-2022 LIGHT BLUE TOP LIGHT BLUE TOP Lab SO Once for 1 Occurrences starting 11/23/2022 until 11/23/2022, 1 completed [facility] Comment on above: Once for 1 Occurrenc es starting 11/23/2022 until 11/23/2022, 1 completed LIGHT BLUE TOP LIGHT BLUE TOP L ab SO 11/23/2022 1:19 AM EDT [facility] End: 11-23-2022 Light Green Top Light Green Top Lab SO Once for 1 Occurrences starting 11/23/2022 until 11/23/2022, 1 completed [facility] Comment on above: Once for 1 Occurrenc es starting 11/23/2022 until 11/23/2022, 1 completed Light Green Top Light Green Top Lab SO 11/23/2022 1:19 AM EDT [facility] End: 08-07-2021 [facility] Comment on above: One Time for 1 Occur rences starting 08/07/2021 until 08/07/2021 Patient Education [facility] Work Phone: Patient referral [facility] Work Phone: End: 09-26-2022 RAINBOW DRAW [facility] Work Phone: Comment on above: One Time for 1 Occur rences starting 09/26/2022 until 09/26/2022 End: 11-23-2022 RAINBOW DRAW [facility] SO One Time for 1 Occurrences starting 11/23/2022 until 11/23/2022 [facility] Work Phone: Comment on above: One Time for 1 Occur rences starting 11/23/2022 until 11/23/2022 RAINBOW DRAW [facility] SO 11/23/2022 1:19 AM EDT [facility] Payers Date Payer Category Payer Self-pay 2023 Medicaid [employer] Member Ibanez bscriber Plan / Payer (Effective 2023-Present) Name: Praneeth Porras Relation to Subscriber: Self Name: Praneeth Porras Payer ID: [id number] (NAIC) Group ID: Not on file Type: Medicaid Address: [address] [address] [id number] 2022 Private Health Insurance [id number] 2016 Unknown [id number] 2012 Private Health Insurance [id number] 1990 Unknown [id number] 2.16.840.1.297060.3.579.2. 176 1991 Unknown [id number] 2.16.840.1.226723.3.579.2. 173 1991 Unknown [id number] 2.16.840.1.624620.3.579.2. 173 1991 Unknown [id number] 2.16.840.1.901053.3.579.2. 173 1991 Unknown [id number] 2.16.840.1.024080.3.579.2. 297 1991 Unknown [id number] 2.16.840.1.584255.3.579.2. 297 1991 Unknown [id number] 2.16.840.1.564445.3.579.2. 297 1991 Unknown [id number] 2.16.840.1.836194.3.579.2. 297 1991 Unknown [id number] 2.16.840.1.265226.3.579.2. 297 1991 Unknown [id number] 2.16.840.1.844140.3.579.2. 297 1991 Unknown [id number] 2.16.840.1.117809.3.579.2. 297 1991 Unknown [id number] 2.16.840.1.426711.3.579.2. 297 1991 Unknown [id number] 2.16.840.1.509715.3.579.2. 297 1991 Unknown [id number] 2.16.840.1.103446.3.579.2. 651 1991 Unknown [id number] 2.16.840.1.199728.3.579.2. 651 Unknown [id number] 2.16.840.1.451727.3.579.2. 462 Unknown [id number] 2.16.840.1.144488.3.579.2. 462 Unknown [id number] 2.16.840.1.175017.3.579.2. 462 Unknown [id number] 2.16840.1.390381.3.579.2. 462 Unknown [id number] 2.16840.1.134194.3.579.2. 462 Unknown [id number] 2.16840.1.665866.3.579.2. 462 Unknown [id number] 2.16840.1.905648.3.579.2. 462 Unknown [id number] 2.16840.1.359809.3.579.2. 462 Unknown [id number] 2.840.1.053761.3.579.2. 462 Unknown [id number] 2.16840.1.225995.3.579.2. 462 Unknown [id number] 2.16840.1.989452.3.579.2. 462 Unknown [id number] 2.16840.1.183402.3.579.2. 462 Social History Date Type Detail Facility Start: 08-07-2021 End: 03-11-2025 Tobacco smoking status INIS Smokes tobacco daily [facility] Phone: History of tobacco use [facility] Phone: Start: 08-07-2021 End: 11-02-2023 Tobacco use and exposure Smokeless tobacco non-user [facility] Phone: Start: 1990 Sex Assigned At Not on file [facility] Phone: Start: 07-09-2021 End: 09-26-2022 Exposure to SARS-CoV-2 (event) Not sure [facility] Phone: Start: 08-08-2021 Alcohol intake Ex-drinker (finding) [facility] Phone: History of tobacco use Cigarette Smoker [facility] Start: 09-26-2022 End: 09-08-2024 Cigarettes smoked current (pack per day) - Reported 0.5 [facility] Start: 09-26-2022 End: 11-23-2022 Alcohol intake Lifetime non-drinker (finding) [facility] Start: 1990 [facility] Start: 10-10-2022 History SDOH Financial 2 [facility] Start: 10-10-2022 History SDOH Transport Med 1 [facility] Start: 11-02-2023 Tobacco smoking status NHIS Ex-smoker [facility] History of tobacco use Current smoker [facility] Start: 11-02-2023 End: 09-08-2024 Alcohol intake Current non-drinker of alcohol (finding) [facility] Start: 11-02-2023 End: 09-08-2024 Tobacco use panel [facility] Start: 09-24-2024 Sex Female (finding) [facility] NEGATED: Highlighted row Not [facility] Clinical Notes 09-26-2022 to 03-11-2025 Note Date & Type Note Facility 03-11-2025 Discharge summary [facility] 03-11-2025 Discharge summary Note Date/Time March 11, 2025 7:48pm [facility] Medical Records Department [address] [place] [address] Emergency Department Summary 03/11/25 MR#: [id number] Acct: [id number] Name: PRANEETH PORRAS Rep #:[id number] : 1990 34 From: Fran Nice MD PCP: Care Physician,No Primary Status :DEP ER Location: ED HPI HPI - Female History of Present Illness Chief Complaint: Informant: patient Associated Symptoms P: 3 Ab: 0 Narrative Narrative: 34-year-old female G3, P3 Ab0. History of DVT with last . IVC filter. Thinks she may be . Last menstrual period was 02/06/2025. She was for started 2 days ago and is late. Took a urine test at home was positive. Says she just feels fatigued. Denies any other symptoms. No vaginalbleeding. No pelvic pain. Would also like to be checked for STDs. Currently has no OB. Last child is 5 years old. Prior similar symptoms: Yes Recent Illness/Hospitalization: No PFSH PFSH Medical History Presence of IVC filter Pulmonary embolism Paranoid schizophrenia Home Medications ?Medication ?Instructions ?Recorded ?Last Taken ?Type lurasidone 20 mg tablet 20 mg PO QPM 09/24/24 Unknow n History doxycycline monohydrate 100 mg 100 mg PO BID #14 CAPSU LES 12/23/24 Unknown Rx capsule ibuprofen 600 mg tablet 600 mg PO 4X/DAY PRN pain #4 0 tabs 01/30/25 Unknown Rx oxycodone-acetaminophen 5 mg-325 1 tab PO Q6H PRN pain 3 days #12 01/30/25 Unknown Rx mg tablet (Percocet) tabs sulfamethoxazole 800 1 tab PO BID #6 TABLETS 12/20 Unknown Rx mg-trimethoprim 160 mg tablet Allergy/AdvReac Type Severity Reaction Status Date / Time quetiapine (From Seroquel) Allergy Chest Verified 03/11/25 18:08 tightness Surgical History History of lumpectomy Social History household members: family current occupational status: employed Smoking Status: Current every day smoker tobacco type: e-cigarettes ROS ROS ED ROS Narrative Denies recent illness. Constitutional Constitutional ED: Denies chills or fever(s) Eyes Eyes: Denies blurry vision ENT ENT ED: Denies ear pain Cardiovascular Cardiovascular: Denies chest pain Respiratory/Chest Respiratory/Chest: Denies cough or dyspnea Gastrointestinal Gastrointestinal: Denies abdominal pain Genitourinary Genitourinary ED: Denies dysuria Musculoskeletal Musculoskeletal: Denies arthralgias Integumentary Denies abscess Neurologic Neurologic: Denies headache(s) Psychiatric Psychiatric: Denies anxiety Endocrine Endocrinology: Denies heat intolerance Hematologic/Lymphatic Hematologic/Lymphatic: Denies easy bleeding Allergic/Immunologic Allergic/Immunologic ED: Denies mouth swelling, tongue swelling or urticaria EXAM Physical Exam Narrative Exam Narrative: Well-appearing 34-year-old female. Vital signs stable afebrile does not look septic toxic no acute distress. Sitting upright in bed. Comfortable. Female friend present at bedside. H EENT exam pupils round react light. Moist mutes membranes. Neck nontender no lymphadenopathy. No meningismus. Tattoos. Lungsclear to auscultation bilaterally. Heart regular rhythm no murmur. Chest wall ribs nontender. Abdomen soft nontender. Moving all 4 extremities. Nontender no edema. Normal range of motion. Back nontender. Neurologically she is awake alert. Answering questions following commands. Benign exam. Const Vital Signs: 03/11/25 18:05 Temperature 99.2 F H Temperature Source Oral Pulse Rate 120 H Respiratory Rate 20 H Blood Pressure 140/89 H Blood Pressure Mean 106 Pulse Ox 100 Oxygen Delivery Method Room Air MDM MDM MDM Narrative Medical decision making narrative: 34-year-old female positive urine test at home wants a serum test. Also like to be tested for STD. Serum test to be obtained. Urine forGC, chlamydia and trichomonas. Patient doing well on repeat exam at 7:40 PM. When urine test for STDs returns I will notify her if any of them are positive. We discussed her positive test. She will follow-up with SURVEY ANALYST. History & Record Review Discussion w/independent historian: Patient Additional record(s) reviewed:: Prior inpatient record, Prior outpatient record,Prior ED visit and Prior labs Lab Data Attestation: I reviewed the patient's lab results. Lab results narrative: Serum test positive. Urine negative for gonorrhea, chlamydia and trichomonas. Labs: Laboratory Results - last 24 hr 03/11/25 18:30 Serum , Qual POSITIVE Discharge Plan Triage Chief Complaint: ED Provider: Fran Nice Dx/Rx/DC Orders Clinical Impression: First trimester , History of factor V Leiden mutation Instructions: 1st Trimester Prescriptions: No Action lurasidone 20 mg tablet 20 mg PO QPM ibuprofen 600 mg tablet 600 mg PO 4X/DAY PRN (Reason: pain) Qty: 40 0RF oxycodone-acetaminophen [Percocet] 5-325 mg tablet 1 tab PO Q6H PRN (Reason: pain) 3 Days Qty: 12 0RF sulfamethoxazole-trimethoprim 800-160 mg tablet 1 tab PO BID Qty: 6 0RF doxycycline monohydrate 100 mg capsule 100 mg PO BID Qty: 14 0RF Primary Care Provider: Care Physician,No Primary Referrals: Nahum Lomeli MD [Med Staff - Active Staff, Obstetrics-Gynecology (OBGYN)] - As soon as possible Care Physician,No Primary [Primary Care Provider, Medical] Activity Restrictions/Additional Instructions: Call and follow-up with a local SURVEY ANALYST soon as possible. Serum test was positive. Print Language: Swazi Disposition Disposition: Home, Self Care Discharge Date/Time: 03/11/25 19:48 What to do if you have Problems For any increased pain, shortness of breath, bleeding, nausea or vomiting, chestpain, or any unexpected problems, contact your Primary Care Provider. Call [facility] ([phone]) or report to the closest Emergency Room. Call 911 if necessary. 03/11/252128 <Electronically signed by Fran Nice MD> Cosigner Signature (if applicable): CC: No Primary Care Physician ~ Signed [facility] Work Phone: 1(721) 419-907509-07-2025 Discharge summary [facility] Medical Records Department [address] [place] [address] Emergency Department Summary 02/02/25 MR#: [id number] Acct: [id number] Name: PRANEETH PORRAS Rep #:[id number] : 1990 34 From: Kyle Fan MD PCP: Care Physician,No Primary Status :REG ER Location: ED HPI HPI - Female History of Present Illness Chief Complaint: Complaint Informant: patient Narrative Narrative: 34-year-old female presenting with burning dysuria, frequency, and some lower abdominal discomfort for several minutes after urinating for the past 2 days. Radiates into her mid low back. No lateralizing abdominal or back symptoms. At1 point she had some subjective fevers and chills but does not know if she really had a fever or not did not check her temperature. No nausea or vomiting. Denies anyvaginal discharge or bleeding. [facility] Medical History Presence of IVC filter Pulmonary embolism Paranoid schizophrenia Home Medications ?Medication ?Instructions ?Recorded ?Last Taken ?Type lurasidone 20 mg tablet 20 mg PO QPM 09/24/24 Unknow n History doxycycline monohydrate 100 mg 100 mg PO BID #14 CAPSU LES 12/23/24 Unknown Rx capsule ibuprofen 600 mg tablet 600 mg PO 4X/DAY PRN pain #4 0 tabs 01/30/25 Unknown Rx oxycodone-acetaminophen 5 mg-325 1 tab PO Q6H PRN pain 3 days #12 01/30/25 Unknown Rx mg tablet (Percocet) tabs sulfamethoxazole 800 1 tab PO BID #6 TABLETS 12/20 Unknown Rx mg-trimethoprim 160 mg tablet Allergy/AdvReac Type Severity Reaction Status Date / Time quetiapine (From Seroquel) Allergy Chest Verified 02/02/25 10:56 tightness Surgical History History of lumpectomy Social History household members: family current occupational status: employed Smoking Status: Current every day smoker tobacco type: e-cigarettes ROS ROS ED Constitutional Constitutional ED: Denies chills or fever(s) Eyes Eyes: Denies change in vision or diplopia ENT ENT ED: Denies rhinorrhea or sore throat Cardiovascular Cardiovascular: Denies chest pain or palpitations Respiratory/Chest Respiratory/Chest: Denies cough or dyspnea Gastrointestinal Gastrointestinal: Reports abdominal pain; Denies diarrhea, nausea or vomiting Genitourinary Genitourinary ED: Reports dysuria and urinary frequency; Denies hematuria Musculoskeletal Musculoskeletal: Reports back pain; Denies neck pain Integumentary Denies abscess or rash Neurologic Neurologic: Denies headache(s), paresthesias or weakness Psychiatric Psychiatric: Denies anxiety or suicidal thoughts EXAM Physical Exam Const Vital Signs: 02/02/25 10:56 Temperature 98.6 F Temperature Source Oral Pulse Rate 85 Respiratory Rate 16 Blood Pressure 154/91 H Blood Pressure Mean 112 Pulse Ox 99 Oxygen Delivery Method Room Air Positive well nourished and well developed General Appearance ED: well developed and NAD HEENT Reports moist mucous membranes normocephalic and atraumatic Eyes PERRL and EOMs intact bilaterally Neck full ROM and supple Resp normal respiratory effort GI non-distended GI Narrative: Mild suprapubic tenderness. No lateralizing pelvic tenderness. No guarding or rebound. Benign abdomen. Auscultation: normoactive bowel sounds Palpation: soft Back/Spine no CVA tenderness General Back: other FROM Extremity normal to inspection General Extremety ED: Negative for edema, pulses abnormal or tenderness General Extremity: Negative for edema or pulses abnormal Neuro oriented x3, CN's II-XII intact bilaterally and no sensory deficits noted Sensorium / Orientation: awake and alert Motor Exam: strength 5/5 throughout Skin no rashes or lesions noted and no wounds MDM MDM MDM Narrative Medical decision making narrative: test is negative, patient has some pyuria and 25 leukocyte esterase negative nitrate, herurine is a little cloudy. Given her symptoms I think reasonable to treat her with a 3-day course ofBactrim to cover cystitis, she iscomfortable with that plan. Lab Data Attestation: I reviewed the patient's lab results. Labs: Laboratory Results - last 24 hr 02/02/25 11:16 Urine Color Yellow Urine Clarity Sl Cloudy Urine pH 6.0 Ur Specific Mcfall 1.025 Urine Protein 100 H Urine Glucose (UA) Normal Urine Ketones Negative Urine Occult Blood 50 H Urine Nitrite Negative Urine Bilirubin Negative Urine Urobilinogen Normal Ur Leukocyte Esterase 25 H Urine RBC 0 SEEN Urine WBC 10-25 SEEN Ur Squamous Epith Cells 0-5 SEEN Urine Bacteria 1+ Urine Mucus 0 SEEN Urine Test Negative Discharge Plan Triage Chief Complaint: Complaint ED Provider: Kyle Fan Dx/Rx/DC Orders Clinical Impression: Acute cystitis without hematuria Instructions: ED Cystitis Female Adult Prescriptions: New sulfamethoxazole-trimethoprim 800-160 mg tablet 1 tab PO BID Qty: 6 0RF No Action lurasidone 20 mg tablet 20 mg PO QPM ibuprofen 600 mg tablet 600 mg PO 4X/DAY PRN (Reason: pain) Qty: 40 0RF oxycodone-acetaminophen [Percocet] 5-325 mg tablet 1 tab PO Q6H PRN (Reason: pain) 3 Days Qty: 12 0RF doxycycline monohydrate 100 mg capsule 100 mg PO BID Qty: 14 0RF Primary Care Provider: Care Physician,No Primary Referrals: Doctor,Your [Non-Staff] - 3-5 Days if not improving Print Language: Swazi Disposition Disposition: Home, Self Care What to do if you have Problems For any increased pain, shortness of breath, bleeding, nausea or vomiting, chestpain, or any unexpected problems, contact your Primary Care Provider. Call [facility] ([phone]) or report tothe closest Emergency Room. Call 911 if necessary. 02/02/25 1219 Cosigner Signature (if applicable): CC: No Primary Care Physician ~ Signed [facility]09-04-2025 Hospital Discharge instructionsAdditional Instructions Your x-ray did not show any sign fracture or dislocation indicating you have a deep bone bruise known as a contusion. It would typically take 5 to 10 days for this to heal. Continue to ice the area to help reduce pain and speed healing and take the prescribed medications as directed. Return to the ER should you have any further concernsWMagruder Hospital Work Phone: [phone]) 285-583804-29-2025 Hospital Discharge instructions Additional Instructions Your history and exam show changes consistent with a small corneal abrasion to your right eye. This will cause increased tearing eye pain and light sensitivity. It will typically heal within 3 to 5 days. Use the antibiotic drops as directed to prevent any infection and follow- up with ophthalmology for repeat evaluation. Return to the ER should you have any further concernsWMagruder Hospital Work Phone: 1(327) 273-793304-13-2025 NoteHNO ID: [id number] Author: MILLER KEYES PA Service: ? Author Type: Physician Shop Manager Type: Progress Notes Filed: 09/08/2024 13:39 Note Text: [facility] Snow Porras is a 34 year old female. [...] not suggestive Disposition The patient was [facility]. [facility] History of Present illness Narrative* Miller Keyes PA - 09/08/2024 1:31 PM EDT [facility] Subjective Praneeth Porras is [...] She has been wiping her nose a lotmore recently. She states that she does have [...] Temp 37.1 C (98.8 F) Resp 18 Wt57.5 kg (126 lb 12.2 oz) LMP 12/06/2016 [...] patient was discharged. Procedures [facility] Telephone encounter Note * Telephone Encounter - Sedrick Cox - 11/03/2023 5:59 PM EDT Patient verbally understands culture was normal and if symptoms persist to see PCP. Sedrick Cox [facility] Miscellaneous Notes* Telephone Encounter - Sedrick Cox - 11/03/2023 5:59 PM EDT Patient verbally understands culture was normal and if symptoms persist to see PCP. Sedrick Cox * Telephone Encounter - Elise Lomeli APRN.CNP - 11/03/2023 5:42 PM EDT Patient's urine culture came back with normal blanca. Please call patient let her know if her symptoms are persistent that she should follow-up with primary care. documented [facility] Telephone encounter Note * Telephone Encounter - Elise Lomeli APRN.CNP - 11/03/2023 5:42 PM EDT Patient's urine culture came back with normal blanca. Please call patient let her know if her symptoms are persistent that she should follow-up with primary care. [facility] Work Phone: 1(184) 969-517006-06-2024 Instructions* Patient Instructions* Miller Keyes PA - 11/02/2023 3:01 PM [...] such as aspirin, nonsteroidal anti-inflammatories, antibiotics, laxatives, cortisoneor caffeine. -Travel to foreign countries. PREVENTIVE MEASURES: [...] amounts of clear liquids, such as tea, "flat" gingerale or lemon-[place] soda, broth and gelatin. -If liquids are tolerated for 12 hours, eat small amounts of soft foods, such as cooked cereal, rice, eggs, custard, baked potato and yogurt. -If soft food is tolerated for 2 - 3 days, gradually return to a normal diet. Avoid alcohol, spicy food (pizza, spaghetti, onions), gravy raw vegetables, raw fruit, salad dressing, cream soup, coffeeand milk for several days. NOTIFY OFFICE: -Symptoms [...] or decreased urination, develop. documented in this encounterK[facility]-2024 NoteHNO ID: [id number] Author: MILLER KEYES PA Service: ? Author Type: Physician Shop Manager Type: Progress Notes Filed: 11/02/2023 15:05 Note Text: This note was created using Access Networkter. Subjective Praneeth Porras is a 33 year [...] discussed in detail warranting prompt ER evaluation. Miller Keyes [facility]06-06-2024 History of Present illness Narrative* Miller Keyes, PA - 11/02/2023 2:54 PM EDT This note was created using Pickliveriter. Subjective Praneeth Porras is a 33 year [...] inability to keep down fluids, needs to beseen in emergency room. 2. Dysuria - ICD9: 788.1, ICD10: R30.0 acute - UA positive for trace ketones, trace protein - Send urine for culture - Patient education for prevention given - UA DIP, URINE (POC) - URINE CULTURE -Treat if urine culture comes back positive. -Patient denies concern for STD, declines STD testing. No concern for , declines pregnancytest. 3. Exposure to strep throat - ICD9: [...] ER evaluation. KAMARI Posadas documented in this encounterK[facility] Hospital Discharge instructions* Discharge Instructions* Shahzad Walker MD - 11/23/2022 4:59 AM EDT Follow up with your primary care doctor. Please return to the Emergency Department for any new or worsening symptoms. [facility]* Thomas Franks RN - 11/23/2022 2:05 AM EDT Obtained 2 IVs using ultrasound, an 18G in LAC and 20G in RAC, both with blood return. Pt insisted both be removed immediately after flushing, she states she can"taste the saline and something must be wrong" Pt now has no IV and blood has not been collected. ERP aware. [facility]06-28-[facility] Emergency department Note* Thomas Franks RN - 11/23/2022 2:05 AM EDT Obtained 2 IVs using ultrasound, an 18G in LAC and 20G in RAC, both with blood return. Pt insisted both be removed immediately after flushing, she states she can"taste the saline and something must be wrong" Pt now has no IV and blood has not been collected. ERP aware. * Bernadette Rivera RN - 11/23/2022 1:09 AM EDT PT c/o hematuria. PT states that this started yesterday. C/O pain in lower back and pelvic area more with urination but constant. PT is alert and oriented x 4 Resp are equal and unlabored Skin pwd * Shahzad Walker MD - 11/23/2022 12:59 AM EDT Images from the original note were not included. [facility] Emergency Department - [place] ED Course/Medical Decision Making: Praneeth Porras, date [...] afebrile. Patient presents with hematuria and bilateral flankpain. States she has had the flank pain over the past 2 to 3 weeks but noticed that it has worsenedover the past day or so. During this past 2 days also started having hematuria. Denies any dysuria.States she is on active treatment for chlamydia. States she has not taken her temperature but denies any chills. Denies nausea or vomiting. On exam patient overall well-appearing. Abdomen soft nontender. Bilateral CVA tenderness. We will plan for belly labs, fluids and CT abdomen pelvis 0121 POC ED/ Urine : NEG 0134 Per chart review, [...] well. Given close return precautions. Given script forkeflex for her UTI. Encouraged to follow up [...] following orders were created for panel order [place] Draw. Procedure Abnormality Status --------- ------ Gold Top[[id number]] In process LIGHT BLUE TOP[[id number]] In process Light Green Top[[id number]] In process Lavender Top[[id number]] In process Dark Green Top[[id number]] In process Please view results for these [...] identified. Shahzad Walker MD 11/23/22, 5:00 AM [facility] This note was partially generated using GoodAppetito Dictation system, and there may be some incorrect words, spellings, and punctuation that were not noted in checking the note before saving. Shahzad Walker MD 11/23/22 0500 documented in this encounterMethod[facility] Emergency department Triage note* Bernadette Rivera RN - 11/23/2022 1:09 AM EDT PT c/o hematuria. PT states that this started yesterday. C/O pain in lower back and pelvic area more with urination but constant. PT is alert and oriented x 4 Resp are equal and unlabored Skin pwd [facility] Physician Emergency department Note* Shahzad Walker MD - 11/23/2022 12:59 AM EDT Images from the original note were not included. [facility] Emergency Department - [place] ED Course/Medical Decision Making: Praneeth Porras, date [...] afebrile. Patient presents with hematuria and bilateral flankpain. States she has had the flank pain over the past 2 to 3 weeks but noticed that it has worsenedover the past day or so. During this past 2 days also started having hematuria. Denies any dysuria.States she is on active treatment for chlamydia. States she has not taken her temperature but denies any chills. Denies nausea or vomiting. On exam patient overall well-appearing. Abdomen soft nontender. Bilateral CVA tenderness. We will plan for belly labs, fluids and CT abdomen pelvis 0121 POC ED/ Urine : NEG 0134 Per chart review, [...] well. Given close return precautions. Given script forkeflex for her UTI. Encouraged to follow up [...] following orders were created for panel order [place] Draw. Procedure Abnormality Status --------- ------ Gold Top[[id number]] In process LIGHT BLUE TOP[[id number]] In process Light Green Top[[id number]] In process Lavender Top[[id number]] In process Dark Green Top[[id number]] In process Please view results for these [...] identified. Shahzad Walker MD 11/23/22, 5:00 AM [facility] This note was partially generated using GoodAppetito Dictation system, and there may be some incorrect words, spellings, and punctuation that were not noted in checking the note before saving. Shahzad Walker MD 11/23/22 0500 [facility]05[facility] Emergency department Note* Mony Serra RN - 09/26/2022 2:34 PM EDT at bedside. [facility] Emergency department Note* Mony Serra RN - 09/26/2022 2:34 PM EDT at bedside. * Mony Serra RN - 09/26/2022 2:32 PM EDT Pt's HR 47. This nurse in to check on pt. Pt sleeping in bed and easily awakens to name. Pt awake and HR 68. aware. * Rahel Louie RN - 09/26/2022 1:21 PM EDT Patient to ultrasound at this time * Jeanie Hunter APRN NP - 09/26/2022 12:12 PM EDT ED Diagnosis and Summary 1. Pelvic cramping [...] SERUM(DO NOT USE FOR TUMOR MARKER, SEE [id number]) CBC AND DIFFERENTIAL RAINBOW DRAW Narrative: The following orders were created for panel order [place] Draw. Procedure Abnormality Status --------- ------ Gold Top[[id number]] In process LIGHT BLUE TOP[[id number]] In process Dark Green Top[[id number]] In process Please view results for these tests on the individual orders. GOLD TOP LIGHT BLUE TOP DARK GREEN TOP US Pelvis-Torsion Study Final Result AGE-APPROPRIATE UTERUS AND OVARIES. : Spoke with Dr. Whitehead regarding patient. Physician to complete their own physical exam and evaluation. Collaboration performed between this ASSISTANT PROFESSOR OF BUSINESS and physician regarding patient's plan of care. Diagnostic studies were reviewed with the patient in their entirety. Patient voiced an understanding of their meaning. At this time, I feel patient is stable for discharge home and patient is comfortable withthis plan. Patient was informed to return to the ED for new or worsening symptoms as well as followup with primary care physician. They had no further questions or complaints at the time of disposition and were comfortable with the plan of care. Patient remained stable throughout the remainder of ED course and required no further interventions. History Chief Complaint Patient presents with Test Pelvic Pain Patient's medications, allergies, past medical, surgical, social and family histories were reviewedand updated as appropriate. The history is provided [...] Weight 150 lb (68 kg) Height 5' 3" (1.6 m) BMI (Calculated) 26.58 Physical Exam [...] Procedures Medical Decision Making Jeanie Hunter APRN [facility] 09/26/22 8110 * Mony Serra RN - 09/26/2022 12:06 PM EDT Pt arrives to ED via private vehicle. Pt ambulates to room without difficulty. Pt is unsure if she is . Pt states she took two tests at home, on "faintly positive." And the second one was negative. Pt states her last menstrual cycle was approx 3 months ago. Pt states she has been having some pain to her left lower pelvic region. Pt A&Ox4. RR easy and unlabored. NAD noted. documented in this [facility] Emergency department Note* Mony Serra RN - 09/26/2022 2:32 PM EDT Pt's HR 47. This nurse in to check on pt. Pt sleeping in bed and easily awakens to name. Pt awake and HR 68. aware. [facility]05[facility] department Note* Rahel Louie RN - 09/26/2022 1:21 PM EDT Patient to ultrasound at this time [facility] Physician Emergency department Note* Jeanie Hunter APRN NP - 09/26/2022 12:12 PM EDT ED Diagnosis and Summary 1. Pelvic cramping [...] SERUM(DO NOT USE FOR TUMOR MARKER, SEE [id number]) CBC AND DIFFERENTIAL RAINBOW DRAW Narrative: The following orders were created for panel order [place] Draw. Procedure Abnormality Status --------- ------ Gold Top[[id number]] In process LIGHT BLUE TOP[[id number]] In process Dark Green Top[[id number]] In process Please view results for these tests on the individual orders. GOLD TOP LIGHT BLUE TOP DARK GREEN TOP US Pelvis-Torsion Study Final Result AGE-APPROPRIATE UTERUS AND OVARIES. : Spoke with Dr. Whitehead regarding patient. Physician to complete their own physical exam and evaluation. Collaboration performed between this ASSISTANT PROFESSOR OF BUSINESS and physician regarding patient's plan of care. Diagnostic studies were reviewed with the patient in their entirety. Patient voiced an understanding of their meaning. At this time, I feel patient is stable for discharge home and patient is comfortable withthis plan. Patient was informed to return to the ED for new or worsening symptoms as well as followup with primary care physician. They had no further questions or complaints at the time of disposition and were comfortable with the plan of care. Patient remained stable throughout the remainder of ED course and required no further interventions. History Chief Complaint Patient presents with Test Pelvic Pain Patient's medications, allergies, past medical, surgical, social and family histories were reviewedand updated as appropriate. The history is provided [...] Weight 150 lb (68 kg) Height 5' 3" (1.6 m) BMI (Calculated) 26.58 Physical Exam [...] Procedures Medical Decision Making Jeanie Hunter APRN [employer] [employer] 09/26/22 5403 [facility] Emergency department Triage note* Mony Serra RN - 09/26/2022 12:06 PM EDT Pt arrives to ED via private vehicle. Pt ambulates to room without difficulty. Pt is unsure if she is . Pt states she took two tests at home, on "faintly positive." And the second one was negative. Pt states her last menstrual cycle was approx 3 months ago. Pt states she has been having some pain to her left lower pelvic region. Pt A&Ox4. RR easy and unlabored. NAD noted. [facility] SystemDischarge summary Author Kyle Fan [facility] Note Date/Time February 02, 2025 12:19pm [facility] Medical Records Department [address] [place] [address] Emergency Department Summary 02/02/25 MR#: [id number] Acct: [id number] Name: PRANEETH PORRAS Rep #:[id number] : 1990 34 From: Kyle Fan MD PCP: Care Physician,No Primary Status :REG ER Location: ED HPI HPI - Female History of Present Illness Chief Complaint: Complaint Informant: patient Narrative Narrative: 34-year-old female presenting with burning dysuria, frequency, and some lower abdominal discomfort for several minutes after urinating for the past 2 days. Radiates into her mid low back. No lateralizing abdominal or back symptoms. At1 point she had some subjective fevers and chills but does not know if she really had a fever or not did not check her temperature. No nausea or vomiting. Denies any vaginal discharge or bleeding. [facility] Medical History Presence of IVC filter Pulmonary embolism Paranoid schizophrenia Home Medications ?Medication ?Instructions ?Recorded ?Last Taken ?Type lurasidone 20 mg tablet 20 mg PO QPM 09/24/24 Unknow n History doxycycline monohydrate 100 mg 100 mg PO BID #14 CAPSU LES 12/23/24 Unknown Rx capsule ibuprofen 600 mg tablet 600 mg PO 4X/DAY PRN pain #4 0 tabs 01/30/25 Unknown Rx oxycodone-acetaminophen 5 mg-325 1 tab PO Q6H PRN pain 3 days #12 01/30/25 Unknown Rx mg tablet (Percocet) tabs sulfamethoxazole 800 1 tab PO BID #6 TABLETS 12/20 Unknown Rx mg-trimethoprim 160 mg tablet Allergy/AdvReac Type Severity Reaction Status Date / Time quetiapine (From Seroquel) Allergy Chest Verified 02/02/25 10:56 tightness Surgical History History of lumpectomy Social History household members: family current occupational status: employed Smoking Status: Current every day smoker tobacco type: e-cigarettes ROS ROS ED Constitutional Constitutional ED: Denies chills or fever(s) Eyes Eyes: Denies change in vision or diplopia ENT ENT ED: Denies rhinorrhea or sore throat Cardiovascular Cardiovascular: Denies chest pain or palpitations Respiratory/Chest Respiratory/Chest: Denies cough or dyspnea Gastrointestinal Gastrointestinal: Reports abdominal pain; Denies diarrhea, nausea or vomiting Genitourinary Genitourinary ED: Reports dysuria and urinary frequency; Denies hematuria Musculoskeletal Musculoskeletal: Reports back pain; Denies neck pain Integumentary Denies abscess or rash Neurologic Neurologic: Denies headache(s), paresthesias or weakness Psychiatric Psychiatric: Denies anxiety or suicidal thoughts EXAM Physical Exam Const Vital Signs: 02/02/25 10:56 Temperature 98.6 F Temperature Source Oral Pulse Rate 85 Respiratory Rate 16 Blood Pressure 154/91 H Blood Pressure Mean 112 Pulse Ox 99 Oxygen Delivery Method Room Air Positive well nourished and well developed General Appearance ED: well developed and NAD HEENT Reports moist mucous membranes normocephalic and atraumatic Eyes PERRL and EOMs intact bilaterally Neck full ROM and supple Resp normal respiratory effort GI non-distended GI Narrative: Mild suprapubic tenderness. No lateralizing pelvic tenderness. No guarding or rebound. Benign abdomen. Auscultation: normoactive bowel sounds Palpation: soft Back/Spine no CVA tenderness General Back: other FROM Extremity normal to inspection General Extremety ED: Negative for edema, pulses abnormal or tenderness General Extremity: Negative for edema or pulses abnormal Neuro oriented x3, CN's II-XII intact bilaterally and no sensory deficits noted Sensorium / Orientation: awake and alert Motor Exam: strength 5/5 throughout Skin no rashes or lesions noted and no wounds MDM MDM MDM Narrative Medical decision making narrative: test is negative, patient has some pyuria and 25 leukocyte esterase negative nitrate, her urine is a little cloudy. Given her symptoms I think reasonable to treat her with a 3-day course of Bactrim to cover cystitis, she iscomfortable with that plan. Lab Data Attestation: I reviewed the patient's lab results. Labs: Laboratory Results - last 24 hr 02/02/25 11:16 Urine Color Yellow Urine Clarity Sl Cloudy Urine pH 6.0 Ur Specific Mcfall 1.025 Urine Protein 100 H Urine Glucose (UA) Normal Urine Ketones Negative Urine Occult Blood 50 H Urine Nitrite Negative Urine Bilirubin Negative Urine Urobilinogen Normal Ur Leukocyte Esterase 25 H Urine RBC 0 SEEN Urine WBC 10-25 SEEN Ur Squamous Epith Cells 0-5 SEEN Urine Bacteria 1+ Urine Mucus 0 SEEN Urine Test Negative Discharge Plan Triage Chief Complaint: Complaint ED Provider: Kyle Fan Dx/Rx/DC Orders Clinical Impression: Acute cystitis without hematuria Instructions: ED Cystitis Female Adult Prescriptions: New sulfamethoxazole-trimethoprim 800-160 mg tablet 1 tab PO BID Qty: 6 0RF No Action lurasidone 20 mg tablet 20 mg PO QPM ibuprofen 600 mg tablet 600 mg PO 4X/DAY PRN (Reason: pain) Qty: 40 0RF oxycodone-acetaminophen [Percocet] 5-325 mg tablet 1 tab PO Q6H PRN (Reason: pain) 3 Days Qty: 12 0RF doxycycline monohydrate 100 mg capsule 100 mg PO BID Qty: 14 0RF Primary Care Provider: Care Physician,No Primary Referrals: Doctor,Your [Non-Staff] - 3-5 Days if not improving Print Language: Swazi Disposition Disposition: Home, Self Care What to do if you have Problems For any increased pain, shortness of breath, bleeding, nausea or vomiting, chestpain, or any unexpected problems, contact your Primary Care Provider. Call [facility] ([phone]) or report to the closest Emergency Room. Call 911 if necessary. 02/02/25 1219 <Electronically signed by Kyle Fan MD> Cosigner Signature (if applicable): CC: No Primary Care Physician ~ Signed [facility] Work Phone: Evaluation note* Diagnosis Depression with suicidal ideation- Primary Hypokalemia Hypopotassemia documented in this encounter [facility] [employer] Work Phone: evaluation note* Diagnosis Pelvic cramping- Primary Unspecified symptom associated with female genital organs [facility]* Diagnosis Acute cystitis with hematuria- Primary Acute cystitis documented in this encounter [facility] note* Diagnosis Nausea and vomiting, unspecified vomiting type- Primary Dysuria Exposure to strep throat Contact with or exposure to other communicable diseases documented in this encounter [facility] note* Diagnosis Nasal sore- Primary Other diseases of nasal cavity and sinuses Acute otitis externa of right ear, unspecified type documented in this encounter [facility] noteNo assessment information availableWMagruder Hospital Work Phone: Hospital Discharge instructions* Attachments The following attachments cannot be sent through Care Everywhere. * Pelvic Pain (Burkinan Swazi) documented in [facility]Method[facility] Discharge instructionsAdditional Instructions Call and follow-up with a local SURVEY ANALYST soon as possible. Serum test was positive.[facility] Work Phone: Reason for referral (narrative)* Consultation (Routine) - Open Specialty Diagnoses / Procedures Referred By Karen t Referred To Contact Family Medicine Diagnoses Pelvic cramping Jeanie Hunter APRN [facility] [address] [place] [address] [facility] [address] [place] [address] [place] [address] Referral ID Status Reason Start Date Expiration Date Visits Re quested Visits Authorized [id number] Open 09/26/2022 10/28/2023 1 1 [facility] ([facility]arrative)No reason for referral information availableWBloom StudioSouthwest General Health Center Work Phone: Summary Purpose Family History No [...] Do you have a Healthcare Power of [place] [employer]? No September 24, 2024 6:35am Advance Directive Response Recorded Date/ Time Do you have a Healthcare Power of [place]? No September 24, 2024 6:35am Do you have a Healthcare Power of [employer] [place]? No December 23, 2024 10:36pm Advance Directive Response Recorded Date/ Time Do you have a Healthcare Power of [place]? No January 31, 2025 12:07am Do you have a Healthcare Power of [place]? No December 23, 2024 10:36pm Advance Directive Response Recorded Date/ Time Do you have a Healthcare Power of [place]? No January 31, 2025 12:07am Do you have a Healthcare Power of [place]? No February 02, 2025 11:17am Do you have a Healthcare Power of [place]? No December 23, 2024 10:36pm Advance Directive Response Recorded Date/ Time Do you have a Healthcare Power of [place]? No January 31, 2025 12:07am Do you have a Healthcare Power of [place]? No February 02, 2025 11:17am Do you have a Healthcare Power of [place]? No December 23, 2024 10:36pm Do you have a Healthcare Power of [place]? No March 11, 2025 6:38pm Chief Complaint and Reason for Visit Chief Complaint Admit Date eye problem September 24, 2024 6:3 2am Chief Complaint Admit Date eye problem September 24, 2024 6:3 2am female c/o December 23, 2024 10:2 7pm Chief Complaint Admit Date female c/o December 23, 2024 10:2 7pm Foot injury January 30, 2025 10:03pm Chief Complaint Admit Date female c/o December 23, 2024 10:2 7pm Foot injury January 30, 2025 10:03pm gu sx February 02, 2025 10:55am Chief Complaint Admit Date female c/o December 23, 2024 10:2 7pm Foot injury January 30, 2025 10:03pm gu sx February 02, 2025 10:55am pregn March 11, 2025 6 :03pm Additional Source Comments INFORMATION SOURCE (unrecogn ized section and content) DATE CREATED AUTHOR 12/09/2017 [facility] DATE CREATED AUTHOR AUTHOR'S ORGANIZ ATION 07/19/2019 [facility] ([place]) DATE CREATED AUTHOR AUTHOR'S ORGANIZ ATION 02/07/2021 [facility] DATE CREATED AUTHOR AUTHOR'S ORGANIZ ATION 08/13/2021 [facility] DATE CREATED AUTHOR AUTHOR'S ORGANIZ ATION 08/29/2021 [facility] DATE CREATED AUTHOR AUTHOR'S ORGANIZ ATION 09/01/2021 [facility] DATE CREATED AUTHOR AUTHOR'S ORGANIZ ATION 06/17/2023 [facility] DATE CREATED AUTHOR AUTHOR'S ORGANIZ ATION 08/16/2024 [facility] DATE CREATED AUTHOR AUTHOR'S ORGANIZ ATION 09/09/2024 [facility] DATE CREATED AUTHOR AUTHOR'S ORGANIZ ATION 04/08/2025 [facility] Reason for Visit (unrecogniz ed section and content) Reason Comments Suicidal pt states "I was put into rehab and they won't let me have my medications" Reason Comments Test Pelvic Pain Reason Comments [...] 0400, Radiology 0321 (Given - Provid er: RT Noris) LORazepam (ATIVAN) tablet 1 mg (COMPLETED) 1 [...] 0151 (New Bag - Prov ider: Bernadette Rivera, KESHAWN)0158 (Stopped - Provider: Bernadette Rivera, KESHAWN)0251 (Restarted - Provider: Bernadette Rivera, KESHAWN)0413 (Stopped - Provider: Bernadette Rivera, RN) Care Teams (unrecognized sec tion and content) Cuff Maker Relationship Specialty [place] [address] [place] [address] PCP - General Family Medicine 10/13/22 Cuff Maker Relationship Specialty Start Date End Date Cande Luciano III PCP - General Family Medicine 01/13/17 Cuff Maker Relationship Specialty Start Date End Date Cande Luciano III PCP - General Family Medicine 01/13/17 Cuff Maker Relationship Specialty Start Date End Date Cande [...] 2025 End: January 31, 2025 Dr. Jerod Davsi DO Emergency Provider Active Start: January 30, 2025 End: January 31, 2025 Team Status: Inactive Member Role/Relationship Status Dates No Primary Care Physician Primary Care Provider Active Start: February 02, 2025 End: February 02, 2025 Dr. Kyle Fan MD Emergency Provider Active Start: February 02, 2025 End: February 02, 2025 Team Status: Active Member Role/Relationship Status Dates No Primary Care Physician Primary care physician Activ e Team Status: Inactive Member Role/Relationship Status Dates No Primary Care Physician Primary care physician Activ e Start: December 23, 2024 End: December 24, 2024 Dr. Kyle Fan MD Attending physician Active Start: December 23, 2024 End: December 24, 2024 Dr. Kyle Fan MD Emergency Depart ment Physician Active Start: December 23, 2024 End: December 24, 2024 Team Status: Inactive Member Role/Relationship Status Dates No Primary Care Physician Primary care physician Activ e Start: January 30, 2025 End: January 31, 2025 Dr. Jerod Davis DO Attending physician Active Start: January 30, 2025 End: January 31, 2025 Dr. Jerod Davis DO Emergency Departme nt Physician Active Start: January 30, 2025 End: January 31, 2025 Team Status: Inactive Member Role/Relationship Status Dates No Primary Care Physician Primary care physician Activ e Start: February 02, 2025 End: February 02, 2025 Dr. Kyle Fan MD Attending physician Active Start: February 02, 2025 End: February 02, 2025 Dr. Kyle Fan MD Emergency Depart ment Physician Active Start: February 02, 2025 End: February 02, 2025 Team Status: Inactive Member Role/Relationship Status Dates No Primary Care Physician Primary care physician Activ e Start: March 11, 2025 End: March 11, 2025 Dr. Fran Nice MD Attending physician Active Start: March 11, 2025 End: March 11, 2025 Dr. Fran Nice MD Emergency Departmen t Physician Active Start: March 11, 2025 End: March 11, 2025 Source Comments (unrecognize d section and content) In the event this informatio n is protected by the Federal Confidentiality of Alcohol and Drug Abuse Patient Records regulations: The Federal rules restrict any use of the information to criminally investigate or prosecute any alcohol or drug abuse patient.[facility] the event this information is protected by the Federal Confidentiality of Alcohol and Drug Abuse Patient Records regulations: The Federal rules restrict any use of the information to criminally investigate or prosecute any alcohol or drug abuse patient.[facility] the event this information is protected by the Federal Confidentiality of Alcohol and Drug Abuse Patient Records regulations: The Federal rules restrict any use of the information to criminally investigate or prosecute any alcohol or drug abuse patient.[facility] Goals (unrecognized section and content) Goals may [...] BE BASED ON THE PRIMARY CLINICAL RECORDS. [employer] [facility]. provides no warranty or guarantee of the accuracy or completeness of information in this document.
--- NOTE | 2025-04-09 07:35 | HP.PCM_ITS ---
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 Is patient in pain?: Yes (lower back pain) Allergies Latex, Natural Rubber Allergy (Mild, Verified 04/03/25 08:06) Itching quetiapine (From Seroquel) Allergy (Verified 04/03/25 08:06) Chest tightness Last Menstrual Period: 02/06/25 Zika: Zika virus screening: Negative : No PFSH PFSH Medical History Hx of chlamydia infection History of claustrophobia Presence of IVC filter Pulmonary embolism Paranoid schizophrenia Surgical History H/O LEEP History of lumpectomy Family History Father Cancer, Onset Age: 62 esophagus cancer Mother Brain tumor from huffing gasoline Social History adopted: Yes housing: apartment current occupational status: employed 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 pets and animals: No history of recent travel: No sexually active: Yes Smoking Status: Current every day smoker tobacco type: e-cigarettes quit status: considering quitting alcohol intake: never substance use type: former substance user Date of last use: Quit 2 days before and marijuana well-balanced diet: daily or most days caffeine: Yes Type: tea Number of servings: 3 eating out: rarely or never during the past year weight has: decreased > 10 lbs what type of physical activity do you participate in: none shashank/sabianist: Catholic seatbelt use: always do you feel safe at home: Yes additional social history: PURNIMA Rodriguez [employer] History 5 Elective abortions Hx Para 3 Spontaneous abortions 1 Hx # Term Pregnancies Ectopic pregnancies Hx # Pregnancies Multiple births # of living children 3 Past Pregnancies Del. Date Name GA/Weeks Outcome Route Bth Weight Infant Gen Labor Lgth Anesthesia Del Locatn Provider FOB Unknown 2017 Miscarriage 8 spontaneous 10/28/12 Ray[place] 38 live - full term vacuum 6#14oz Male epidural [facility] Jeffry Chiquita 12/25/13 Khanh 41 live - full term 7#14oz Ma le epidural [facility] Jeffry Chiquita 04/09/19 Jeanette live - full term 7#6oz Ma le epidural [facility] Delivery Date: 12/25/13 Last Updated by: Farnaz Godinez IOl post dates, HTN Delivery Date: 04/09/19 Last Updated by: Farnaz Godinez blood clot HPI Rescan per Details: HPI: The patient is a female with a history of IVC filter placement presenting for evaluation of a missed miscarriage. Missed Miscarriage, denies vaginal bleeding or cramping, no fevers - Patient presents with a missed miscarriage; no heart tones detected on ultrasound. - Gestational sac is measuring 14mm by 28mm with a yolk sac present; crown-rump length is 4.6mm, consistent with the previous measurement of 5mm. - No color Doppler flow seen within the gestational sac or crown-rump length. - Patient reports feeling unwell and sleeping all day yesterday. - No history of D&C, previous 8 week miscarriage. History - Patient has had three pregnancies - Patient has an IVC filter in place and is not on any blood thinners. Past Medical History - IVC filter placement. Subjective Sections: PMHx - Blood clot after last delivery PSHx - IVC filter placement - Denies D&C surgery Social Hx - Number of children: Has children ROS: Constitutional: (+) malaise, (+) fatigue PhysicalExam: GENERAL: Pleasant; in no apparent distress BREAST: soft, non-tender, symmetric, no dominant mass, normal nipple-areolar com plex, no lymphadenopathy, no nipple discharge PULMONARY: normal inspiratory effort ABDOMEN: soft, non-tender, no masses. Gestational sac measuring 14 millimeters by 28 millimeters; yolk sac present; crown-rump length 4.6 millimeters consistent with previous measurement of 5 millimeters; no heart tones auscultated; no color Doppler flow detected within the gestational sac or crown- rump length. : - PELVIC: external genitalia normal, normal Bartholin's glands, urethra, [place]'s glands, no vulvar lesions, no cervical lesions, good vaginal support, physiologic discharge present, normal appearing perineal body and perianal region - Patient consent for exam received NEURO: alert and oriented x3 EXTREMITIES: normal Assessment/Plan: # Missed (O02.1): - demise confirmed by ultrasound with no detectable cardiac activity; crown rump length unchanged from prior measurement. - Discussed management options including expectant approach, medical therapy, and dilation and curettage. - Patient elected surgical intervention; scheduled D&C for tomorrow. - Reviewed procedural risks including bleeding, infection, and uterine perforation. - Advised no oral intake for 8 hours preoperatively, clear liquids up to 2 hours before arrival. - Provided letter excusing patient from work; patient will resume normal activities following a brief postoperative recovery period. - Offered referral to local bereavement resources ([employer]) for emotional support. # Presence of inferior vena cava filter (Z95.828): - Acknowledged existing IVC filter placed after previous complication; patient not on anticoagulation. - Coordinating with vascular surgery (Dr. Egan) to ensure safe perioperative management and to discuss potential future removal of filter. Patient Instructions: - A dilation and curettage (D&C) procedure has been scheduled for tomorrow to complete the management of your miscarriage. - Do not eat for 8 hours before your surgery; you may have clear liquids (water, clear juice) until 2 hours before. - Plan to arrive at the surgery center 2 hours before your scheduled procedure time. - You will receive a phone call within the next few hours with your exact surgery start time. - A doctor’s note has been provided to excuse you from work today and tomorrow; plan to return on Monday. - Schedule and attend a follow-up appointment with vascular surgery to discuss removal of your IVC filter as arranged. OB Visit ENA Calculator Estimated Delivery Date Method Current WG Current Estimate 11/13/25 LMP (Certain) 8w 4d Initial Weight: Not Recorded Date - - - - - - - - -- - - - - EGA Weight BP Urine Prot - - - - - - - - - - - - - Glucose FHR FuHt Pres Dilation - - - - - - - - - - - - - Effaced St Visit Note 04/03/25- - - - - - - - - - - - - 8w 0d 143 lb 7 oz 145/89 - - - - - - - - - - - - - - - - - - - - - - - - - - SM- on US 24 mm GS seen with yolk sac, 5 mm pole no fht seen. posisble ealry miscarriage, will plan fu us monday. will consult with vascular about ivc filter. ACOG First Trimester First Trimester: Desire for , Alcohol, Tobacco Cessation, Illicit/Recreational Drug/Substance Use, Intimate Partner Violence, Barriers to care, Unstable Housing, Communication Barriers, Environmental/Work Hazards, Anticipated Course of Care, Toxoplasmosis Precations, Use of Any medications, Sexual activity, Exercise, Dental Care, Sauna/Hot tub use, Seat Belt use, Childbirth classes/Hospital facilities, Travel, Indications for Ultrasound and Screening for Aneuploidy; Discussed Coding Level of Care Code Off vis,est,level 4 Diagnoses Presence of IVC filter Z95.828 History of polyhydramnios Z87.59 Hx of one miscarriage Z87.59 Supervision of high-risk O09.90 8 weeks gestation of Z3A.08 Weeks of gestation: 8 weeks Marijuana use F12.90 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 IVC filter at Dr. Tegan Suárez. Refer to [facility] for removal. (2) History of polyhydramnios: Status: Acute Comment: all 3 pregnancies per pt (3) Hx of one miscarriage: Status: Acute Comment: 2016 (4) Supervision of high-risk : Status: Acute Comment: , ENA 11/13/25, PC Khanh Morris Castiel, PURNIMA Rodriguez (5) : Status: Acute Qualifiers: Weeks of gestation: 8 weeks Qualified Code(s): Z3A.08 - 8 weeks gestation of Comment: elects NIPT with gender & carrier testing (6) Marijuana use: Status: Acute Comment: last used 2 days before finding out , discussed drug testing initial and random, pt states [facility] is involved and testing pt. (7) HPV in female: Status: Acute (8) Hx of abnormal cervical Pap smear: Status: Acute (9) H/O LEEP: Status: Acute Comment: 2012& 2013, has not had a pap test since (10) Hx of blood clots: Status: Acute Comment: right leg, filter placed by Kamini CARLISLE (11) Depression: Status: Acute (12) Schizoaffective disorder: Status: Acute Comment: taking Latuda (13) Anxiety: Status: Acute (14) Family history of autism in sibling: Status: Acute Comment: 2 sisters & pt son Khanh (15) Missed : Status: Acute Comment: discussed options and de [place] rosa suction d and c. Plan After discussing the patient's diagnosis and treatment plan options, patient wishes to proceed with surgical management. I have discussed with the patient the risks, benefits, and alternatives of the procedure which include but are not limited to risks of anesthesia, bleeding, infection, possible damage to bowel, bladder, or surrounding vasculature which could lead to additional surgery to evaluate any complications. Patient agrees to procedure and wishes to proceed. ACOG/uptodate references given for additional information regarding procedure. UPDATE- I have seen the patient and performed any clinically relevant updates to the history and physical exam. Bibiana Shen MD
[2025-04-09] MEDS: Lactated Ringers 1,000 ML 15 ML IV (07:55)
--- NOTE | 2025-04-09 08:09 | PRE.ANES_ITS ---
ASA Classification* ASA Classification ASA Classification: 3 (Hx PE s/p IVC filter, smoker, (+) vape and THC, ) Assessment & Plan Anesthesia* Anesthesia Assessment Anesthesia Assessment: Discussed sedation and/or anesthesia options, risks, benefits, and alternatives with patient/parents/legal guardian/POA. Questions invited. The patient/parents/legal guardian/POA seems to understand and agrees to proceed with anesthesia plan. Reviewed the physical assessment, medical history, allergy history and patient home medications list prior to surgery/procedure/anesthetic and documented any changes. Performed airway and anesthesia risk assessments. Patient not NPO yesterday as she had coffee with cream at 11 AM. Decision made to postpone surgery to today. Patient states she had water at 0300 today, but denies all other food products Anesthesia Type Anesthesia Type: MAC History Source History Obtained from:: Patient and Chart Anesthesia Focused Assessment* Temperature: 99.9 F Pulse Rate: 75 Blood Pressure: 121/73 Respiratory Rate: 16 Pulse Ox: 100 Airway Assessment Mouth opens: >3 cm Mallampati Score: II Labs Anesthesia Preop lab: CBC WBC, (4.4-11.0) 7.0 K/mm3 04/08/25, 13:55 RBC, (4.2-5.4) 4.28 M/mm3 04/08/25, 13:55 Hgb, (12.0-15.0) 13.5 g/dL 04/08/25, 13:55 Hct, (37-47) 40.0 % 04/08/25, 13:55 Plt Count, (150-450) 269 K/mm3 04/08/25, 13:55 CHEMISTRY Potassium, (3.3-5.1) 3.9 mmol/L 04/08/25, 13:55 Sodium, (133-145) 136 mmol/L 04/08/25, 13:55 BUN, (4-19) 11 mg/dL 04/08/25, 13:55 Creatinine, (0.70-1.20) 0.64 mg/dL L 04/08/25, 13:55 Glucose, (70-99) 87 mg/dL 04/08/25, 13:55 TSH, (0.300-4.200) 2.250 uIU/mL 11/06/25, 08:54 COAG HCG, Quant, (<9 non-preg) 73466 mIU/mL H 03/29/25, 19:0 9 Urine Test Negative Negative 02/02/25, 11:16 Pre-Assessment Diagnosis/Proposed Procedure Planned Operative Procedure(s): Hysteroscopy,D&C Symphion Anesthesia History Anesthesia History - transport coordinator: Anesthesia History - transport coordinator Hx Hospitalization No 04/07/25 15:45 Any Problems With Anesthesia No 04/07/25 15:45 Cholinesterase deficiency No 04/07/25 15:45 You/Your Family Experience No 04/07/25 15:45 fever (hyperthermia) with Relationship Recent Exposure to Contagious No 04/08/25 14:05 Disease Does patient have nerve No 04/07/25 15:45 stimulator Patient instructed to have device shut off --Does patient have Pacemaker No 04/09/25 07:49 or ICD? When Was Last Pacemaker Check QUESTION #4 FULL TEXT: You/Your Family Experience fever (hyperthermia) with Anesthesia Last Oral Intake Last Oral intake: Last Oral Intake NPO since 03:00 04/09/25 07:49 Meds taken in AM with sips of No 04/09/25 07:49 water? Meds patient instructed to take am of surgery PONV PONV - transport coordinator: PONV - transport coordinator Female Yes 04/07/25 15:45 HX of Motion Sickness Yes 04/07/25 15:45 HX of N/V After Surgery No 04/07/25 15:45 Non-Smoker No 04/07/25 15:45 Duration of Surgery greater No 04/07/25 15:45 than 60 minutes Number of Risk Factors 2 04/07/25 15:45 PONV Score Moderate Risk 04/07/25 15:45 Height & Weight Height & Weight: Anesthesia: Height & Weight Height 5 ft 3 in 04/09/25 07:49 Weight: 66 kg 04/09/25 07:49 Body Mass Index (BMI) 25.7 04/09/25 07:49 Respiratory Assessment Respiratory Assessment - transport coordinator: Respiratory Tract Infection Hx - transport coordinator Hx Respiratory Tract Infection No 04/07/25 15:45 STOP Sleep Apnea STOP Sleep Apnea - transport coordinator: STOP Sleep Apnea - transport coordinator Hx Hypertension No 04/07/25 15:45 Hx Sleep Apnea No 04/07/25 15:45 CPAP BIPAP Do you snore loudly (louder No 04/07/25 15:45 than talking or can be heard Do you often feel tired/ No 04/07/25 15:45 fatigued/ sleepy during daytime? Has anyone observed you stop No 04/07/25 15:45 breathing during sleep? STOP Results Negative 04/07/25 15:45 QUESTION #5 FULL TEXT : Do you snore loudly (louder than talking or can be heard through closed doors)? Tobacco Use History Tobacco Use History - transport coordinator: Tobacco Use History - transport coordinator Tobacco Use Smoking Status Current every day smoker 04/07/25 15:45 Hx Tobacco Use No 04/07/25 15:45 Years Smoking 5 04/07/25 15:45 Packs Smoked per Day Smoking Cessation Date was within the last 15 years Hx Smoking Cessation Date Hx Smoking Cessation Counseling Hematologic Medial History Hematologic Hx - transport coordinator: Hematologic Medical Hx - supervisor production Hx of Blood Transfusion No 04/07/25 15:45 Hx of Transfusion in last 3 No 04/07/25 15:45 Months Date of Last Transfusion (if within last 3 months) Ever experience any problems No 04/07/25 15:45 with transfusion(s)? Specify any problems Hx of Preganancy in last 3 No 04/07/25 15:45 Months Nurse Filling Out Transfusion JZOLLRIGO 04/07/25 15:45 & Questions: Date: 04/07/25 04/07/25 15:45 Time: 15:46 04/07/25 15:45 Patient unable to answer at this time (ie. confused, unrespo /Reproduction History /Reproductive History - transport coordinator: /Reproductive Hx- transport coordinator Hx Now No 04/07/25 15:45 Gestational Age (in weeks): EDC: Hx Hx Para Hx Section SAB No 04/07/25 15:45 Does the father of the baby or his family experience fever w Father of the baby Malignant Hypertension history comment Active Medications Active Medications: Current Medications Generic Name Dose Route Start Last Admin Trade Name Freq PRN Reason Stop Dose Admin Lactated Ringer's 1,000 mls @ 15 mls/hr 04/09/25 07:30 04/09/25 07:55 IV 15 mls/hr .Q48H [place] Administration PFSH Medical History (Updated 04/07/25 @ 15:45 by Raquel Noe) Wears glasses Heartburn Smoker Hx of chlamydia infection History of claustrophobia Presence of IVC filter Pulmonary embolism Paranoid schizophrenia Home Medications Medication Instructions Recorded Last Taken Type lurasidone 20 mg tablet 40 mg PO QPM 09/24/24 Unknow n History PNV 153-FA 400 mcg-om3 35 mg-dha 1 tab PO .QD 04/02/25 Unknown History 25 mg-epa 5 mg-fish oil chew tablet Allergy/AdvReac Type Severity Reaction Status Date / Time Latex, Natural Rubber Allergy Mild Itching Verified 04/09/25 07:47 quetiapine (From Seroquel) Allergy Chest Verified 04/09/25 07:47 tightness Family History Father Cancer, Onset Age: 62 esophagus cancer Mother Brain tumor from huffing gasoline Surgical History H/O LEEP History of lumpectomy Social History adopted: Yes housing: apartment current occupational status: employed 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 pets and animals: No history of recent travel: No sexually active: Yes Smoking Status: Current every day smoker tobacco type: e-cigarettes quit status: considering quitting alcohol intake: never substance use type: former substance user Date of last use: Quit 2 days before and marijuana well-balanced diet: daily or most days caffeine: Yes Type: tea Number of servings: 3 eating out: rarely or never during the past year weight has: decreased > 10 lbs what type of physical activity do you participate in: none shashank/catholic: [employer] seatbelt use: always do you feel safe at home: Yes 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 Physical Exam Const alert, oriented x3 and average body habitus Resp normal respiratory effort, normal air movement and clear to auscultation bilaterally Cardio regular rate, regular rhythm and no murmurs; Negative for diaphoretic
[2025-04-09] MEDS: Lactated Ringers 500 ML IV (08:45)
--- NOTE | 2025-04-09 08:45 | POC_PTH ---
PATIENT: PRANEETH AGUIAR LOC: [facility] [place] U#:[id number] AGE/SX: 34/F ROOM: RE04/09/[address]: Dr. Bibiana Shen MD : 1990 BED: DIS: 04/09/2025 SPEC #: [id number] RECD: 04/09/25 09:26 STATUS: JACK REKang #: [id number] MARISA: 04/09/25 08:[address]: Bibiana Shen DEPT: SURGICAL PATHOLOGY RECD BY: Stewart Garcia ENTERED: 04/09/25 10:22 SP TYPE: PROD CONC OTHR DR: Dr. Mary Winston, DO No Primary Care Phys Tissues: A - Product of conception, NOS Procedures: Surgery Specimen Level IV HEADER OPERATION: Dilation and curettage, suction PRE-OP DIAGNOSIS: Missed TISSUE SUBMITTED: A- Products of conception *patient will come and bulk picker* MICROSCOPIC DIAGNOSIS A. Uterine contents, dilation and suction curettage: - Acutely inflamed and focally necrotic decidua, clotted blood, and immature placental villi, consistent with products of conception from a missed MICROSCOPIC DESCRIPTION Slides are reviewed. GROSS DESCRIPTION A. Received in formalin labeled with the patient's name and date of . Designated as "products of conception, patient will come and bulk picker" is a 6.4 x 6.4 x 0.7 cm aggregate of sanchez-pink to red tissue. parts are not present. Pan Washer sections are submitted in 3 cassettes. OR 04/09/2025 CPT:12085
[2025-04-09] MEDS: dexMEDEtomidine 200 MCG/2 ML ML 12 MCG IV (08:47)
[2025-04-09] MEDS: Lidocaine 1% (5 ml sdv) 5 ML Vial IV (08:49)
[2025-04-09] MEDS: fentaNYL 100 MCG/2 ML Ampul IV (08:52)
--- NOTE | 2025-04-09 09:02 | OP.PCM_ITS ---
Procedures Urinary/Genital 52xxx-59xxx: [id number] Trmt of incomplete Ab, any TM Operative Report (Standard) Operative Information Date of Procedure: 04/09/25 Pre-Operative Diagnosis: missed ab 6-7 weeks Post-Operative Diagnosis: same Surgery/Procedure Performed: suction dilation and curettage make up operator helper: No Type of Anesthesia: IV Sedation and Local RN Documented Start/Stop Times: Operation Date: 04/09/25 08:45 Case Time Into Pre-Op 04/09/25 07:28 Out of Pre-Op 04/09/25 08:36 Anesthesia Start 04/09/25 08:45 Into Room 04/09/25 08:45 Procedure Start 04/09/25 09:06 Procedure Start Time: 09:06 Procedure Stop Time: 09:12 Select all DRAINS/GRAFTS/IMPLANTS that apply: None Estimated Blood Loss: 50 Specimen collected: Yes Description of specimen(s) removed: retained POC Description of surgery: Patient was taken to the operating room and placed under MAC local anesthesia. She was prepped and draped in the normal sterile fashion the dorsal lithotomy position. Bladder was drained of clear urine and anterior lip of the cervix was grasped and the uterus sounded to 10. Cervix was progressively dilated to allow passage of a 10mm suction curette. Progressive passes were made removing the retained products of conception without complication. Sharp curettage confirmed complete removal of the retained products. All instruments were removed from the vagina and excellent hemostasis was noted and the patient was taken to recovery in stable condition. Surgical Findings: 6-7 week missed ab Complications Complications: No
--- NOTE | 2025-04-09 09:02 | PCM.DC ---
Discharge Instructions DC O2, CPAP, BIPAP needs Home O2 Discharge instructions: No Dressing / Incision Discharge Activity: Return to Normal Activity, May Shower and May Take a Tub Bath (after 1 week) May resume sexual activity in: 1-2 weeks Weight Bearing Status: Weight bearing as tolerated Lifting Restrictions: none Dressing / Incision Call your doctor if you observe: Fever of 101 or Higher, Using more than 1 pad per hour, Shortness of breath and Uncontrolled pain Follow Up Care Please Follow Up With: Bibiana Shen MD When: Call [phone] to schedule appointment. Test Results: Test results from this visit will be discussed in further detail at your follow-up appointment, if applicable. Discharge Plan Admission Attending Provider: Bibiana Shen Primary Care Provider: Care Physician,No Primary Consulting Providers: Mary Winston Instructions Print Language: Romansh Discharge Orders/Prescriptions Prescriptions: No Action PNV no.[id number] 400 mcg-35 mg- 25 mg-5 mg tablet,chewable 1 tab PO .QD lurasidone 20 mg tablet 40 mg PO QPM Referrals / Follow Up: Care Physician,No Primary [Primary Care Provider, Medical] Disposition Disposition (needs filled in before D/C Order can be placed): Home, Self Care
[2025-04-09] MEDS: Lidocaine 1% (20 ml mdv) 20 ML Vial (09:06)
--- NOTE | 2025-04-09 09:30 | PCM.POST.ANE ---
Anesthesia: Postop Eval I Current Vital Signs Temperature: 99.5 F Pulse Rate: 57 Blood Pressure: 98/61 Respiratory Rate: 16 Pulse Ox: 97 Oxygen Delivery Method: Room Air Assessment Airway patent: Yes Spontaneous unlabored respirations: Yes Mental status: Awake and Calm nausea: No Vomiting: No Anesthesia Complication: No Fluid Hydration Crystalloid volume administer (ml): 500 Total IV fluid infused: 500 Progress Note Anesthesia document: Postop Eval 1 completed: Yes
[2025-04-09] MEDS: HYDROcodone Bitartrate/Apap 5/325 Tablet PO (10:10)
--- NOTE | 2025-04-09 10:28 | POSTOPAN2_ITS ---
Anesthesia Postop Eval I Sum Postop Eval Completion status Anesthesia document: Postop Eval 1 completed: Yes Anesthesia Postop Eval I Summary Anesthesia Postop Eval I Summary: Anesthesia Postop Eval I: Assessment Summary Airway patent Yes 04/09/25 09:30 ELECTRICIAN [email or web address] Spontaneous unlabored Yes 04/09/25 09:30 ELECTRICIAN [email or web address].[email or web address] respirations Mental status Awake,Calm 04/09/25 09:30 ELECTRICIAN [email or web address] nausea No 04/09/25 09:30 ELECTRICIAN [email or web address].[email or web address] Vomiting No 04/09/25 09:30 ELECTRICIAN [email or web address].[email or web address] Anesthesia Postop Eval I: Fluid Summary Crystalloid volume administer 500 04/09/25 09:30 ELECTRICIAN [email or web address].[email or web address] (ml) Colloids volume administered ( ml) Blood Product volume administered (ml) Total IV fluid infused 500 04/09/25 09:30 ELECTRICIAN [email or web address].[email or web address] Anesthesia Postop Eval I: Summary Notes Anesthesia Complication No 04/09/25 09:30 ELECTRICIAN [email or web address].[email or web address] Anesthesia Complication Comment: Post-operative progress note Anesthesia: Postop Eval II Evaluation Mental status: Awake Pain Level: 0 nausea: No Vomiting: No Complications Anesthesia Complication: No
--- NOTE | 2025-04-09 10:28 | PCM.POSTANE2 ---
Anesthesia Postop Eval I Sum Postop Eval Completion status Anesthesia document: Postop Eval 1 completed: Yes Anesthesia Postop Eval I Summary Anesthesia Postop Eval I Summary: Anesthesia Postop Eval I: Assessment Summary Airway patent Yes 04/09/25 09:30 [email or web address] Spontaneous unlabored Yes 04/09/25 09:30 WEBBING [email or web address].[email or web address] respirations Mental status Awake,Calm 04/09/25 09:30 [email or web address] [email or web address] nausea No 04/09/25 09:30 WEBBING [email or web address] Vomiting No 04/09/25 09:30 [email or web address] Anesthesia Postop Eval I: Fluid Summary Crystalloid volume administer 500 04/09/25 09:30 [email or web address] (ml) Colloids volume administered ( ml) Blood Product volume administered (ml) Total IV fluid infused 500 04/09/25 09:30 [email or web address] Anesthesia Postop Eval I: Summary Notes Anesthesia Complication No 04/09/25 09:30 WEBBING [email or web address] Anesthesia Complication Comment: Post-operative progress note Anesthesia: Postop Eval II Evaluation Mental status: Awake Pain Level: 0 nausea: No Vomiting: No Complications Anesthesia Complication: No
--- NOTE | 2025-04-09 11:13 | SUR.PHASEII ---
THIS RN WENT IN AND TALKED WITH PATIENT ABOUT POST OP PRESCRIPTION BEING A STRONGER STRENGTH ANTI INFLAMMATORY AND IT BEING SENT TO THE PHARMACY. PATIENT BECAME AGITATED WITH NURSE AND STARTED CURSING. THIS RN STATED THAT IT WAS ALRIGHT TO BE UPSET BUT WE WERE NOT GOING TO USE LANGUAGE LIKE THAT. THIS RN STATED CALMLY TALKED WITH PATIENT ABOUT OPTIONS FOR PAIN CONTROL. PATIENT ALSO WAS VERY CONCERNED ABOUT HER KETTLE TENDER AND BEING DRUG TESTED AND THE MEDS SHE WAS GIVEN TODAY. THIS RN DISCUSSED WITH HER THE MEDS SHE WAS GIVEN TODAY AND THAT HER DISCHARGE SUMMARY SHOULD SUFFICE FOR HER KETTLE TENDER PER DR. SAUER. PATIENT WAS ACTIVELY SENDING PICTURES OF HER DISCHARGE PAPERWORK TO HER SUPERVISOR ROD PLACING. PATIENT ALSO TEXTED MED NAMES TO SUPERVISOR ROD PLACING. THIS RN INSTRUCTED PATIENT THAT IF SHE WOULD LIKE ANY PHYSICAL COPIES OF HER MEDICATION RECORDS FROM SURGERY THAT SHE WOULD HAVE TO GO THROUGH MEDICAL RECORDS. PATIENT CALMED DOWN AND WAS AGREEABLE TO THE PLAN OF CARE AND APPEARED TO BE HAPPY BY TIME OF DISCHARGE. PATIENTS BOYFRIEND AND BEST FRIEND WERE PRESENT IN ROOM THE ENTIRE TIME WELL. PATIENT VITALS WERE REASSESSED WELL.
== END 2025-04-09 11:19 | disposition home or self-care (01) ==
LOC: SDC 07:13 → AC 07:17
PROVIDERS: Obstetrics & Gynecology; Referring Provider Obstetrics & Gynecology; Visit Provider Obstetrics & Gynecology
DX: O02.1 Missed abortion (principal); F25.9 Schizoaffective disorder, unspecified; Z3A.08 8 weeks gestation of pregnancy; F17.290 Nicotine dependence, other tobacco product, uncomplicated; Z95.828 Presence of other vascular implants and grafts; O99.341 Other mental disorders complicating pregnancy, first trimester; O99.331 Smoking (tobacco) complicating pregnancy, first trimester
CPT/HCPCS: 59820; 01965; 80053; 80307; 85027; 86850; 86900; 86901; 88305; J2405